=== PATIENT | female | born 1950 | race Caucasian/White ===

== ENCOUNTER → 2017-12-04 15:09 | Outpatient (CLI) | payer OTHER, SELFPAY ==
[2017-12-04 17:39] LABS: Absolute Lymphocyte Count 2.36 X10^3/ul (0.83-4.51); Basophil# 0.03 X10^3/uL; Basophil% 0.4 % (0-1); Eosinophil# 0.16 X10^3/uL; Eosinophils% 2.2 % (0-5); Hematocrit 38.3 % (37-47); Hemoglobin 12.5 g/dl (12.0-15.0); Lymphocyte # 2.36 X10^3/ul (4.0); Mean Corp Hgb Conc 32.6 g/gl (32-36); Mean Corpuscular Hgb 29.6 pg (27.0-32.0); Mean Corpuscular Volume 90.5 fL (81-99); Mean Platelet Vol. 11.2 fl (6.2-12.0); Monocyte# 0.78 X10^3/uL; Monocyte% 10.6 % (0-10); Neutrophil # 4.04 X10^3/uL (2.7-7.7); Neutrophil % 54.7 % (47-70); Platelet Count 216 K/mm3 (150-450); RBC Distribution Width CV 12.6 % (11.6-14.6); RBC Distribution Width SD 41.3 fl (35.1-43.9); Red Blood Count 4.23 M/mm3 (4.2-5.4); White Blood Count 7.4 K/mm3 (4.4-11.0)
[2017-12-04 17:47] LABS: ALB/GLOB Ratio 1.2 RATIO (0.9-2.4); AST(SGOT) 18 U/L (15-37); Alanine Aminotransfer ALT/SGPT 29 U/L (13-56); Albumin, Serum 4.1 g/dL (3.2-5.0); Alkaline Phosphatase 95 U/L (45-117); Anion Gap 7 (5-15); BUN 22 mg/dL (7-18); BUN/Creat Ratio 23.4 RATIO (10-20); Chloride 104 mmol/L (98-107); Creatinine, Serum 0.94 mg/dL (0.55-1.02); EST Glomerular Filtration Rate 63 mL/min (>60); Est Glom Filt Rate - Afr Amer 76 mL/min (>60); Globulin 3.4 g/dL (2.2-4.2); Glucose 88 mg/dL (74-106); Potassium 4.7 mmol/L (3.5-5.1); Protein, Total 7.5 g/dL (6.4-8.2); Sodium Level 139 mmol/L (136-145)
[2017-12-04 17:48] LABS: POSITIVE COUNT NO; POSITIVE DIFFERENTIAL NO; POSITIVE MORPHOLOGY NO
== END ==
PROVIDERS: Family Provider Nurse Practitioner; PCP Nurse Practitioner; Referring Provider Dermatology Pediatric Dermatology; Visit Provider Dermatology Pediatric Dermatology
DX: L40.0 Psoriasis vulgaris (principal); L64.8 Other androgenic alopecia; L40.59 Other psoriatic arthropathy
CPT/HCPCS: 36415; 80053; 85025

== ENCOUNTER 2017-12-10 13:27 | Emergency (ER) | payer OTHER, SELFPAY ==
[2017-12-10 13:28] VITALS: BP 210/101; PULSE 84; RESP 16; TEMP 36.7; O2SAT 100; BMI 32.9
--- NOTE | 2017-12-10 13:39 | RAD_ITS ---
STUDY: X-RAY - RIGHT FOOT CLINICAL: Female, 67 years old. Right foot and ankle pain TECHNIQUE: 3 view(s) of the foot. COMPARISON: None. FINDINGS: No acute fracture or dislocation. Prominent plantar spur. Age-related degenerative changes RAD/Foot min 3 Views IMPRESSION: No acute findings Electronically Signed: Cain Johnson DO at 14:48 EDT Tel , Service support ,
--- NOTE | 2017-12-10 15:18 | ED.DCSUM_ITS ---
- ER Visit Summary Date of Service: 12/10/17 Chief Complaint: Right heel pain History of Present Illness: The patient is a 67 F who sees Leatha kurtz. She reports that she began having pain in her right foot yesterday. She reports is gradually worsened. It is a dull, aching pain is 10 out of 10 at worst an 8 out of 10 currently. Is worsened by walking. She is taken Tylenol and Epson salts without relief. She denies any numbness or weakness. No trauma. No fall, MVA, or change in activity. No new shoes. Physical Examination: Vitals: Stable. Afebrile. General: Well-nourished and well-developed. Head: Normocephalic atraumatic. Neck: Supple, no lymphadenopathy. No JVD. Nontender. Cardiovascular: Regular rate and rhythm. No murmurs. Respiratory: No respiratory distress. Clear to auscultation bilaterally. Abdominal: Soft, nontender, nondistended, normal bowel sounds. No guarding, rebound, or peritoneal signs. Back: Nontender. Extremities: Mild tenderness palpation over the medial side of her right calcaneus. There is no erythema or warmth to suggest infection. She is a 2+ dorsalis pedis pulse. The remainder of her foot is nontender. There is no edema. Skin: Normal color, no rash. Neurologic: Alert and oriented ?3. Cranial nerves II through XII are intact. Normal strength and sensation. Psych: Normal affect. Test Results: Clinical Impression(s) from Imaging Studies Foot X-Ray 12/10/17 13:39 IMPRESSION: No acute findings Electronically Signed: Cain Johnson DO at 14:48 EDT Tel , Service support , Emergency Department Course and Treatment: Patient refused pain medications was able to ambulate without difficulty. Treatment Plan: I discussed with the patient rest, ice, elevation. She refused pain medications for home. She will be instructed to follow-up Dr. Rogers in 1 week if not improving. Return to the emergency department for any worsening symptoms. Disposition: To home in improved and stable condition. Impression: 1. Right foot pain, acute. This note was generated with [employer] Check[employer] software. It may contain incorrect words, spelling, and punctuation that were not noted in review of the chart prior to signing ED Disposition - Plan for ED Patient: Disposition: Home or Assisted Living Chief Complaint: Lower Extremity Injury Instructions: ED Sprain Foot Referrals: Leatha Morrison, LELAND-C [Primary Care Provider] - Gregory Rogers DPM [STAFF PHYSICIAN] - 1 Week if not improving
[2017-12-10 15:21] VITALS: PULSE 60; RESP 16
== END 2017-12-10 15:34 | disposition home or self-care (01) ==
LOC: ED 14:08
PROVIDERS: Emergency Provider Emergency Medicine; Family Provider Nurse Practitioner; PCP Nurse Practitioner
DX: M79.671 Pain in right foot (principal); I10 Essential (primary) hypertension; Z79.82 Long term (current) use of aspirin; Z79.899 Other long term (current) drug therapy
CPT/HCPCS: 73630; 99282

== ENCOUNTER → 2018-07-14 10:59 | Outpatient (CLI) | payer OTHER, SELFPAY ==
[2018-07-14 11:58] LABS: Erythrocyte Sedimentation Rate 5 mm/hr (0-30)
[2018-07-14 12:00] LABS: Absolute Lymphocyte Count 2.47 X10^3/ul (0.83-4.51); Absolute Neutrophil Count 2.5 X10^3/uL (2.0-7.7); Basophil# 0.02 X10^3/uL; Basophil% 0.3 % (0-1); Eosinophils% 1.7 % (0-5); Hematocrit 37.4 % (37-47); Hemoglobin 12.4 g/dl (12.0-15.0); Lymphocyte # 2.47 X10^3/ul (4.0); Lymphocyte % 42.7 % (19-41); Mean Corp Hgb Conc 33.2 g/gl (32-36); Mean Corpuscular Hgb 29.5 pg (27.0-32.0); Mean Corpuscular Volume 88.8 fL (81-99); Mean Platelet Vol. 10.6 fl (6.2-12.0); Monocyte# 0.65 X10^3/uL; Monocyte% 11.2 % (0-10); Neutrophil # 2.53 X10^3/uL (2.7-7.7); Neutrophil % 43.9 % (47-70); Platelet Count 230 K/mm3 (150-450); RBC Distribution Width CV 13.5 % (11.6-14.6); Red Blood Count 4.21 M/mm3 (4.2-5.4); White Blood Count 5.8 K/mm3 (4.4-11.0)
[2018-07-14 12:01] LABS: POSITIVE COUNT NO; POSITIVE DIFFERENTIAL NO; POSITIVE MORPHOLOGY NO
[2018-07-14 12:13] LABS: CRP < 2.90 mg/L (0.0-3.0)
== END ==
PROVIDERS: Family Provider Nurse Practitioner; PCP Nurse Practitioner; Referring Provider Specialist; Visit Provider Specialist
DX: Z96.651 Presence of right artificial knee joint (principal)
CPT/HCPCS: 36415; 85025; 85652; 86140

== ENCOUNTER → 2018-10-26 13:24 | Outpatient (CLI) | payer OTHER, SELFPAY | PROVIDERS: Family Provider Nurse Practitioner; PCP Nurse Practitioner; Referring Provider Nurse Practitioner Gerontology; Visit Provider Nurse Practitioner Gerontology | DX: R19.7 Diarrhea, unspecified (principal) | CPT/HCPCS: 82274; 83630; 87177; 87209; 87493; 87506 ==

== ENCOUNTER 2018-11-04 09:22 | Emergency (ER) | payer OTHER, SELFPAY ==
[2018-11-04 09:24] VITALS: BP 164/90; PULSE 76; RESP 17; TEMP 36.1; O2SAT 98; BMI 33.0
--- NOTE | 2018-11-04 09:49 | ED.VIS.BACK ---
History of Present Illness Chief Complaint: Lower Extremity Injury Informant: Patient Onset: Yesterday Context: Gradual Onset Injury: Lifting, Twisting, Bending, Repetitive Motion Timing: Continuous Quality: Sharp Location: Lumbar, Buttock, Right Leg Current Severity: Severe Maximum Severity: Severe Worsened by: improves with: Movement, Ambulation, Bending, Lifting Relieved by: Nothing Associated Symptoms: Radiation to Right Leg Narrative: 68-year-old female presents with right leg pain. History of previous low back pain as well as a right hip and knee replacement. Has been working since yesterday with worsening pain. It really emanates in her low back and buttock radiating to her right leg. She denies trauma. She denies numbness tingling or weakness. She has not had any loss of bowel or bladder function or difficulty urinating or constipation. No fevers. No history of back surgery. She has been taking Tylenol since yesterday without improvement. Denies any other review of systems. Prior similar symptoms: Yes, With Prior Back Pain Recent Illness/Hospitalization: No Past Medical History - Allergies and Home Meds Allergies/Adverse Reactions: Allergies albuterol Allergy (Verified 11/04/18 09:22) Swelling lidocaine [From Lidoderm] Allergy (Verified 11/04/18 09:22) [facility] Primary Care Physician: Leatha Morrison NP-C [Primary Care Provider] - Prior records reviewed: Yes Past Medical History: - - Hypertension, hyperlipidemia, syncope Surgical History: appendectomy, cholecystectomy Smoking Status: Never smoker Review of Systems All systems negative except as indicated General: Denies: Chills, Fever Musculoskeletal: Reports: Back pain, Extremity Pain Physical Exam Vital Signs/Narrative: Vital Signs Temp Pulse Resp BP Pulse Ox 11/04/18 09:24 96.9 F L 76 17 164/90 H 98 Inital Vital Signs reviewed: Yes General: Well nourished, Well developed Head: Normocephalic, Atraumatic Eyes: Perrl, EOMI ENT: Moist mucous membranes Neck: Supple, Nontender Cardiovascular: Regular rate, Regular rhythm, No murmurs Respiratory: No distress, CTA bilaterally, Chest nontender Abdomen: Soft, Nontender, Nondistended, Normal bowel sounds, No masses Back: Normal Inspection, Paraspinal Tenderness, Positive SLR - Right, Negative SLR - Left. Negative for: Spinal tenderness, CVA tenderness Extremeties: Nontender, No edema Skin: Normal color, No rash Neuro: Alert, Oriented, Normal Strength, Normal Sensation, Normal Gait, Normal Reflexes Psychological: Normal affect Diagnostic/Tx/Re-eval - Medical Decision Making Patient's exam is consistent with sciatica. She does not have any signs or symptoms of cauda equina syndrome. She has not suffered any trauma. At this time do not feel that imaging is indicated. She is given 1 dose of Toradol and will be prescribed a short course of Percocet. She will continue ibuprofen at home. She will follow-up with her primary care physician. She will return here for worsening symptoms which we discussed. ED Disposition - Plan for ED Patient: Disposition: Home or Assisted Living Diagnosis: Sciatica Instructions: Understanding Sciatica Prescriptions: Naproxen [Naprosyn] 500 mg PO BID #14 tab Prescription Printed Oxycodone HCl/Acetaminophen [Percocet 5/325] 1 tab PO Q6H PRN PRN 3 Days #12 tab PRN Reason: Pain Prescription Printed Referrals: Leatha Morrison [employer]PERATOR-C [Primary Care Provider] -
--- NOTE | 2018-11-04 09:50 | ED.VIS.GEN ---
History of Present Illness Chief Complaint: Lower Extremity Injury Past Medical History - Allergies and Home Meds Allergies/Adverse Reactions: Allergies albuterol Allergy (Verified 11/04/18 09:22) Swelling lidocaine [From Lidoderm] Allergy (Verified 11/04/18 09:22) Hives Primary Care Physician: Leatha Morrison NP-C [Primary Care Provider] - Surgical History: appendectomy, cholecystectomy Smoking Status: Never smoker Physical Exam Vital Signs/Narrative: Vital Signs Temp Pulse Resp BP Pulse Ox 11/04/18 09:24 96.9 F L 76 17 164/90 H 98 Diagnostic/Tx/Re-eval - Medical Decision Making Patient complains of right leg pain history of sciatica increasing symptoms while at work today and no numbness weakness paresthesias no loss of function no abdominal pain, patient seen with William agree with history and physical as above exam shows no signs of neurovascular dysfunction no deficits abdomen soft nontender provide treatment management see the note for full details ED Disposition - Plan for ED Patient: Referrals: Leatha Morrison NP-C [Primary Care Provider] -
[2018-11-04] MEDS: oxyCODONE 5 MG Tablet PO (10:04)
[2018-11-04] MEDS: Ketorolac 30 MG/ML Syringe IM (10:04)
[2018-11-04 10:46] VITALS: RESP 16
== END 2018-11-04 10:46 | disposition home or self-care (01) ==
PROVIDERS: Emergency Provider Physician Assistant Medical; Family Provider Nurse Practitioner; PCP Nurse Practitioner
DX: M54.41 Lumbago with sciatica, right side (principal); I10 Essential (primary) hypertension; E78.5 Hyperlipidemia, unspecified; Z79.82 Long term (current) use of aspirin; Z79.899 Other long term (current) drug therapy
CPT/HCPCS: 96372; 99283

== ENCOUNTER → 2019-04-01 15:40 | Outpatient (CLI) | payer OTHER, SELFPAY ==
--- NOTE | 2019-04-01 15:45 | RAD_ITS ---
STUDY: X-RAY - RIGHT HAND REASON FOR EXAM: Female, 69 years old. Right-sided pain TECHNIQUE: 3 view(s) of the hand. COMPARISON: None. FINDINGS: There is no evidence of fracture or dislocation. There are moderate degenerative changes at the base of the thumb and in the interphalangeal joints. There are no radiodense foreign bodies. RAD/Hand Min 3 Views IMPRESSION: No fracture or dislocation in the right hand. Moderate degenerative change. Electronically Signed: Brennon Robles, at 15:54 EST Tel , Service support ,
== END ==
PROVIDERS: PCP Nurse Practitioner; Referring Provider Nurse Practitioner; Visit Provider Nurse Practitioner
DX: M79.641 Pain in right hand (principal)
CPT/HCPCS: 73130

== ENCOUNTER → 2019-09-21 07:00 | Outpatient (CLI) | payer OTHER, SELFPAY ==
[2019-09-21 08:15] LABS: Absolute Lymphocyte Count 2.66 X10^3/uL (0.83-4.51); Absolute Neutrophil Count 2.3 X10^3/uL (2.0-7.7); Basophil# 0.03 X10^3/uL; Basophil% 0.5 % (0-1); Eosinophil# 0.16 X10^3/uL; Eosinophils% 2.8 % (0-5); Hematocrit 40.8 % (37-47); Hemoglobin 13.1 g/dL (12.0-15.0); Lymphocyte # 2.66 X10^3/ul (4.0); Lymphocyte % 46.6 % (19-41); Mean Corp Hgb Conc 32.1 g/dL (32-36); Mean Corpuscular Volume 90.3 fL (81-99); Monocyte# 0.54 X10^3/uL; Monocyte% 9.5 % (0-10); NRBC Flagged by Analyzer 0 % (0-5); Neutrophil % 40.2 % (47-70); Platelet Count 257 K/mm3 (150-450); RBC Distribution Width CV 12.4 % (11.6-14.6); RBC Distribution Width SD 40.8 fl (35.1-43.9); Red Blood Count 4.52 M/mm3 (4.2-5.4); White Blood Count 5.7 K/mm3 (4.4-11.0)
[2019-09-21 09:45] LABS: ALB/GLOB Ratio 1.1 RATIO (0.9-2.4); AST(SGOT) 20 U/L (15-37); Alanine Aminotransfer ALT/SGPT 28 U/L (13-56); Albumin, Serum 3.9 g/dL (3.2-5.0); Alkaline Phosphatase 76 U/L (45-117); Anion Gap 3 (5-15); BUN 13 mg/dL (7-18); BUN/Creat Ratio 14.8 RATIO (10-20); Calcium,Total 8.9 mg/dL (8.5-10.1); Chloride 105 mmol/L (98-107); Cholesterol 255 mg/dL (200); Creatinine, Serum 0.88 mg/dL (0.55-1.02); EST Glomerular Filtration Rate 68 mL/min (>60); Est Glom Filt Rate - Afr Amer 82 mL/min (>60); Globulin 3.4 g/dL (2.2-4.2); Glucose 93 mg/dL (74-106); High Density Lipoprotein 62 mg/dL; Potassium 4.5 mmol/L (3.5-5.1); Protein, Total 7.3 g/dL (6.4-8.2); Sodium Level 136 mmol/L (136-145); Thyroid Stim Hormone (TSH) 1.34 uIU/mL (0.358-3.74); Triglycerides 99 mg/dL; Very Low Density Lipoprotein 20 mg/dL (5-40)
[2019-09-23 08:19] LABS: Vitamin D,25 Hydroxy 41.6 ng/mL
== END ==
PROVIDERS: PCP Nurse Practitioner; Referring Provider Nurse Practitioner; Visit Provider Nurse Practitioner
DX: E03.9 Hypothyroidism, unspecified (principal); E55.9 Vitamin D deficiency, unspecified; I10 Essential (primary) hypertension; F41.9 Anxiety disorder, unspecified
CPT/HCPCS: 36415; 80053; 80061; 82306; 84443; 85025

== ENCOUNTER → 2020-11-17 08:10 | Outpatient (CLI) | payer OTHER, SELFPAY ==
[2020-11-17 10:04] LABS: Vitamin D,25 Hydroxy 22.2 ng/mL
== END ==
PROVIDERS: PCP Nurse Practitioner; Referring Provider Nurse Practitioner; Visit Provider Nurse Practitioner
DX: Z00.01 Encounter for general adult medical examination with abnormal findings (principal); E03.9 Hypothyroidism, unspecified; E55.9 Vitamin D deficiency, unspecified
CPT/HCPCS: 36415; 82306; 84443

== ENCOUNTER 2021-04-12 14:01 | Outpatient (RCR) | payer OTHER, SELFPAY ==
--- NOTE | 2021-04-12 14:52 | HP.PTEVAL ---
Patient's Visit Information BARBARA LIGHT is a 71 year old F referred to Physical Therapy by Dr. Melissa Arnett MD with a diagnosis of Vertigo. Date of Evaluation: 04/12/21 Physical Therapist: Moreno Escobedo, MAMIET, OCS, CSCS - Visit Plan Frequency: 1-2x /Week Duration: 2-4 Weeks Plan: 1-2x/week for 2-4 weeks as needed for... positional treatments and vestibular checks. Next session: check positional and move onto oculomotor as needed. - Subjective 2 weeks ago had insidious onset of waviness in L eye sitting at work looking at computer and got very dizzy. [place] it in both eyes at the time but went away in R eye and L eye continues. Feels dizzy and lightheaded getting up out of bed, on computer, tilting head down and it lasts short term and blurriness is there most of time. Had this 4 yrs ago when we treated her successfully with positional treatments. saw Dr. Arnett last week and got prescription for meclizine which did not help, takes it but does not help. Sleep is not great at night but has been that way for a while. 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 Activitiea re normal just miserable a lot of time. No falls, feels steady typically but less so lately as she may veer left. - Objective Walks with slight R antalgia into PT I, transfers I. Steps preferring to use L with rail I. Cervical aROM 55 ext and 60 B rotation without pain, hesitant to look up. UE AROM WFL, Sensation UE WNL to gross light touch. - R Hallpike lyla. + L hallpike lyla for quick up torsional nystagmus and asymmetrical dizzy/eye movement feeling for 10 seconds. Treated with Johnny and then much improved Hallpike lyla. - Balance/Special Test Scores Functional Gait Assessment Score: 26 % Disability: 13.3400 Dizziness Score: 50 - Goals Goal 1:: Patient feel dizzyness 100% better and back to normal Goal Time Frame: 2-4 Weeks Goal 2:: Pt feel eyes back to normal Goal Time Frame: 2-4 Weeks Goal 3:: DHI score 20 or less Goal Time Frame: 2-4 Weeks - Rehabilitation Potential Physical Therapy Diagnosis: Vertigo likely positional effecting comfort with activities Rehabilitation Potential: Fair - Anticipated Interventions Patient/Client Instruction: Educate patient on: Condition, Plan of Care For the Purpose of:: To increase ROM, To increase tolerance to activity/condition/position Comment: vestibular techniques and exercises. For the Purpose of:: To improve muscle performance and motor function, To increase tolerance to activity/condition/position Thank you for the opportunity to evaluate your patient. For Medicare and Medicare HMO plans, please review the plan of care and approve it. It will need to be FAXED BACK to us at [phone] for Medicare purposes. For Medicare only, by signing this I certify the plan of care. Please let me know if there are questions or concerns regarding this plan of care. Physician Signature: Date:
--- NOTE | 2021-06-14 07:29 | HP.PT.NRP ---
BARBARA LIGHT was seen in my office for initial evaluation on 04/12/21. The following Plan of Care was established for this patient: Initial Frequency: 1-2x /Week Initial Duration: 2-4 Weeks Patient/Client Instruction: Educate patient on: Condition, Plan of Care For the Purpose of:: To increase ROM, To increase tolerance to activity/condition/position For the Purpose of:: To improve muscle performance and motor function, To increase tolerance to activity/condition/position This patient was last seen in our office 04/12/21. Pertinent comments regarding their Physical therapy will appear below: Pt seen one visit and treated with positional treatments for vertigo. was to continue a weekly POC but did not schedule or attend any further visits. At this point, it has been over two months and I will discontinue due to nonattendance. At this point I will be discontinuing this patient from physical therapy. I would be happy to see this patient again in the future if found appropriate by the physician. Thank you! Moreno Escobedo, DPT, OCS, CSCS Balance/Gait/Functional tests - Balance/Special Test Scores Functional Gait Assessment Score: 26 % Disability: 13.3400 Dizziness Score: 50
== END 2021-04-12 19:00 | disposition home or self-care (01) ==
LOC: PT 14:01
PROVIDERS: PCP Nurse Practitioner; Referring Provider Internal Medicine; Visit Provider Internal Medicine
DX: R42 Dizziness and giddiness (principal)
CPT/HCPCS: 97161

== ENCOUNTER 2021-07-22 08:22 | Emergency (ER) | payer OTHER, SELFPAY ==
[2021-07-22 08:23] VITALS: BP 194/99; PULSE 90; RESP 14; TEMP 36.3; O2SAT 100; BMI 32.5
--- NOTE | 2021-07-22 08:30 | RAD_ITS ---
STUDY: X-RAY - LEFT KNEE REASON FOR EXAM: Female, 71 years old. Lateral knee pain. No known injury. TECHNIQUE: 4 view(s) of the knee. COMPARISON: None. FINDINGS: Normal visualized distal femur. Normal visualized proximal tibia and fibula. Normal proximal tibiofibular articulation. There is moderate degenerative arthrosis of the medial femorotibial compartment with moderate joint space narrowing. Normal lateral femorotibial compartment. There is severe degenerative arthrosis of the patellofemoral articulation. Tiny joint effusion. Chondrocalcinosis of the medial and lateral menisci. RAD/Knee 4 or More Views IMPRESSION: Degenerative arthrosis. Chondrocalcinosis of the medial and lateral menisci. Tiny joint effusion. Electronically Signed: Jimi Morales MD at 9:22 EDT ,
--- NOTE | 2021-07-22 08:31 | EX.ED.DYSGE1 ---
HPI History of Present Illness Chief Complaint: Lower Extremity Injury Informant: patient Narrative Narrative: Patient states she hurt her knee yesterday. 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 She has pain in the lateral aspect of her left knee. Its not red or swollen. There is no impact or fall. She does not have pain in the calf or swelling. No fevers chills. It just feels like it is going to give out on her. Nothing specifically makes it better other than rest. Weightbearing does make it a little bit worse as does motion. [facility] Medical History (Updated 07/22/21 @ 09:[address] Tariq Gordon MD) Hypertension Home Medications ferrous sulfate 325 mg PO BIDCM #60 tablet 06/13/13 [Rx Last Taken Unknown] levothyroxine 125 mcg PO DAILY@0600 #30 tablet 06/13/13 [Rx Last Taken 11/09/15 06:00] pravastatin 20 mg PO QHS #30 tablet 06/13/13 [Rx Last Taken Unknown] aspirin 81 mg PO DAILY@0800 07/23/13 [History Last Taken Unknown] levomefolate-algal oil [Deplin] 15 mg PO DAILY 07/23/13 [History Last Taken Unknown] sertraline 100 mg PO DAILY 07/23/13 [History Last Taken Unknown] amlodipine 10 mg tablet 10 mg PO DAILY #30 tab 03/14/17 [Rx Last Taken Unknown] adalimumab 40 mg SQ Q14D 11/04/18 [History Last Taken Unknown] naproxen 500 mg PO BID #14 tab 11/04/18 [Rx Last Taken Unknown] cetirizine 10 mg capsule 10 mg PO DAILY #30 cap 10/10/20 [Rx Last Taken Unknown] famotidine 20 mg tablet 20 mg PO BID #28 tab 10/10/20 [Rx Last Taken Unknown] prednisone 20 mg tablet 40 mg PO DAILY #10 tab 10/10/20 [Rx Last Taken Unknown] naproxen 500 mg PO BID #14 tab 07/22/21 [Rx Last Taken Unknown] Allergy/AdvReac Type Severity Reaction Status Date / Time albuterol Allergy Swelling Verified 07/22/21 08:25 lidocaine [From Lidoderm] Allergy Hives Verified 07/22/21 08:25 Family History Other Heart disease Surgical History History of hip replacement Total knee replacement status Social History Smoking Status: Never smoker ROS ROS ED Constitutional Constitutional ED: Denies chills or fever(s) Cardiovascular Cardiovascular: Denies chest pain or palpitations Respiratory/Chest Respiratory/Chest: Denies cough or dyspnea Gastrointestinal Gastrointestinal: Denies nausea or vomiting Musculoskeletal Musculoskeletal: Reports arthralgias Integumentary Denies abscess, Abrasions or rash Neurologic Neurologic: Denies paresthesias or weakness Endocrine Endocrinology: Denies polydipsia or polyuria Allergic/Immunologic Allergic/Immunologic ED: Denies urticaria EXAM Physical Exam Const Vital Signs: 07/22/21 08:23 Temperature 97.4 F L Temperature Source Temporal Pulse Rate 90 Respiratory Rate 14 Blood Pressure 194/99 H Blood Pressure Mean 130 Pulse Ox 100 Oxygen Delivery Method Room Air Positive well nourished and well developed General Appearance ED: well developed and NAD HEENT Reports moist mucous membranes Resp normal respiratory effort Back/Spine no CVA tenderness Lumbar Spine / Lower Back: Negative for lumbar spinal tenderness Extremity normal to inspection Extremity Narrative: Knees look the same. No asymmetry. There is no effusion. There is no erythema. There is no warmth. There is no pain with passive motion. There is pain with palpation along the lateral joint line. But there does not appear to be laxity of the joint. No contusion or abrasion is noted. The rest of the leg shows no distal swelling, tenderness, tenderness along the deep venous system, cords or distended veins. Neuro no sensory deficits noted Sensorium / Orientation: alert Motor Exam: strength 5/5 throughout Psych mental status grossly normal Skin no rashes or lesions noted and no wounds MDM MDM MDM Narrative Medical decision making narrative: X-rays show degenerative changes and chondrocalcinosis. No sign of acute fracture. Recommend ice rest. We will write for some Naprosyn which she has used before without problems. I will use a short course of this. She will follow-up with her primary physician. Radiography Diagnostic Testing: Clinical Impression(s) from Imaging Studies Knee X-Ray 07/22/21 08:30 IMPRESSION: Degenerative arthrosis. Chondrocalcinosis of the medial and lateral menisci. Tiny joint effusion. Electronically Signed: Jimi Morales MD at 9:22 EDT , Discharge Plan Triage Chief Complaint: Lower Extremity Injury ED Provider: Tariq Gordon Dx/Rx/DC Orders Clinical Impression: Strain of left knee, Chondrocalcinosis of knee Instructions: ED Knee Sprain Prescriptions: New naproxen 500 MG tablet 500 mg PO BID Qty: 14 RF: 0 No Action prednisone 20 mg tablet 40 mg PO DAILY Qty: 10 RF: 0 Zyrtec 10 mg capsule 10 mg PO DAILY Qty: 30 RF: 0 famotidine [Pepcid] 20 mg tablet 20 mg PO BID Qty: 28 RF: 0 ferrous sulfate 325 MG tablet 325 mg PO BIDCM Qty: 60 RF: 0 levothyroxine 125 MCG tablet 125 mcg PO DAILY@0600 Qty: 30 RF: 0 pravastatin 20 MG tablet 20 mg PO QHS Qty: 30 RF: 0 aspirin 81 MG tablet 81 mg PO DAILY@0800 RF: 0 sertraline 100 MG tablet 100 mg PO DAILY RF: 0 levomefolate-algal oil [Deplin (algal oil)] 7.5 MG tablet 15 mg PO DAILY RF: 0 adalimumab 40 MG/0.8 ML syringe kit 40 mg SQ Q14D RF: 0 naproxen 500 MG tablet 500 mg PO BID Qty: 14 RF: 0 amlodipine 10 MG tablet 10 mg PO DAILY Qty: 30 RF: 11 Primary Care Provider: Care Physician,No Primary Referrals: Melissa Arnett MD [STAFF PHYSICIAN] - 3-5 Days Care Physician,No Primary [Primary Care Provider] - Disposition Disposition: Home, Self Care
== END 2021-07-22 10:03 | disposition home or self-care (01) ==
PROVIDERS: Emergency Provider Emergency Medicine; Visit Provider Emergency Medicine
DX: S83.92XA Sprain of unspecified site of left knee, initial encounter (principal); M11.262 Other chondrocalcinosis, left knee; X58.XXXA Exposure to other specified factors, initial encounter
CPT/HCPCS: 73564; 99282

== ENCOUNTER → 2022-07-01 | Outpatient (CLI) | payer OTHER, SELFPAY ==
[2022-07-01 17:48] LABS: Absolute Lymphocyte Count 2.21 X10^3/uL (0.83-4.51); Absolute Neutrophil Count 4.9 X10^3/uL (2.0-7.7); Basophil# 0.01 X10^3/uL; Basophil% 0.1 % (0-1); Eosinophil# 0.01 X10^3/uL; Eosinophils% 0.1 % (0-5); Hematocrit 39.8 % (37-47); Hemoglobin 12.9 g/dL (12.0-15.0); Lymphocyte # 2.21 X10^3/ul (0.83-4.51); Lymphocyte % 28.2 % (19-41); Mean Corp Hgb Conc 32.4 g/dL (32-36); Mean Corpuscular Hgb 29.4 pg (27.0-32.0); Mean Corpuscular Volume 90.7 fL (81-99); Monocyte# 0.66 X10^3/uL; Monocyte% 8.4 % (0-10); NRBC Flagged by Analyzer 0 % (0-5); Neutrophil # 4.92 X10^3/uL (2.7-7.7); Neutrophil % 62.8 % (47-70); Platelet Count 239 K/mm3 (150-450); RBC Distribution Width CV 13.1 % (11.6-14.6); RBC Distribution Width SD 43.4 fl (35.1-43.9); Red Blood Count 4.39 M/mm3 (4.2-5.4); White Blood Count 7.8 K/mm3 (4.4-11.0)
[2022-07-01 18:01] LABS: Erythrocyte Sedimentation Rate 8 mm/hr (0-30)
[2022-07-01 18:19] LABS: ALB/GLOB Ratio 1.2 RATIO (0.9-2.4); AST(SGOT) 17 U/L (15-37); Alanine Aminotransfer ALT/SGPT 34 U/L (13-56); Alkaline Phosphatase 77 U/L (45-117); Anion Gap 6 (5-15); BUN 17 mg/dL (7-18); BUN/Creat Ratio 17.5 RATIO (10-20); CRP, High Sensitivity Cardiac 3.08 mg/L; Calcium,Total 9.4 mg/dL (8.5-10.1); Chloride 103 mmol/L (98-107); Creatinine, Serum 0.97 mg/dL (0.55-1.02); EST Glomerular Filtration Rate 60 mL/min (>60); Est Glom Filt Rate - Afr Amer 72 mL/min (>60); Globulin 3.2 g/dL (2.2-4.2); Glucose 112 mg/dL (74-106); Potassium 4.5 mmol/L (3.5-5.1); Protein, Total 7.2 g/dL (6.4-8.2); Sodium Level 137 mmol/L (136-145)
== END | disposition home or self-care (01) ==
LOC: MTLAB 14:49
PROVIDERS: PCP Nurse Practitioner Family; Referring Provider Nurse Practitioner Family; Visit Provider Nurse Practitioner Family
DX: L50.8 Other urticaria (principal)
CPT/HCPCS: 36415; 80053; 85025; 85652; 86141

== ENCOUNTER → 2022-09-05 | Outpatient (CLI) | payer OTHER, SELFPAY ==
--- NOTE | 2022-09-05 09:25 | RAD_ITS ---
CLINICAL HISTORY: Female, 72 years old. Dysphagia, GERD. PROCEDURE: Dual contrast esophagram. FLUOROSCOPY TIME (if supplied): (1:04) minutes/seconds TECHNIQUE: Gas powders and a barium meal were given per os under fluoroscopic guidance. Rapid sequence and static fluoroscopic spot films as well as overhead radiographs obtained (total images - 62). FINDINGS: The motility, overall distensibility, and mucosal pattern of the esophagus were normal. Mild smooth impressions were seen on the posterior wall of the cervical esophagus by moderately large anterior cervical endplate osteophytes. There is moderate smooth impression on the upper thoracic esophagus by the partially calcified thoracic aortic arch. A few tertiary waves were sometimes noted in the distalmost esophagus. No ulcer or suspicious mass seen. A small sliding hiatal hernia was noted. No gastroesophageal reflux could be demonstrated during the study. The patient was able to swallow a 1 cm diameter barium tablet without difficulty. RAD/Esophagus Dual Contrast IMPRESSION: 1. Small sliding hiatal hernia. Active gastroesophageal reflux was not demonstrated during this study. 2. Moderate smooth impression on the upper thoracic esophagus by the partially calcified thoracic aorta, but this did not produce any distinct obstructive pathology. Electronically Signed: Ladarius Guidry MD at 12:47 EDT Reading Location ID and State: [id number] / Unknown , Service support ,
== END | disposition home or self-care (01) ==
LOC: RAD 09:10
PROVIDERS: PCP Nurse Practitioner Family; Referring Provider Otolaryngology Otolaryngology/Facial Plastic Surgery; Visit Provider Otolaryngology Otolaryngology/Facial Plastic Surgery
DX: R13.10 Dysphagia, unspecified (principal); K21.9 Gastro-esophageal reflux disease without esophagitis
CPT/HCPCS: 74221

== ENCOUNTER 2022-10-25 09:40 | Emergency (ER) | payer OTHER, SELFPAY ==
[2022-10-25 09:41] VITALS: BP 187/95; PULSE 80; RESP 18; TEMP 36.3; O2SAT 98; BMI 32.9
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
[2022-10-25] MEDS: Diphth,Pertuss(Acell),Tet Vac 0.5 ML Vial IM (10:56)
[2022-10-25 11:15] VITALS: RESP 16
== END 2022-10-25 11:15 | disposition home or self-care (01) ==
PROVIDERS: Emergency Provider Emergency Medicine; PCP Nurse Practitioner Family; Visit Provider Emergency Medicine
DX: T25.221A Burn of second degree of right foot, initial encounter (principal); T25.222A Burn of second degree of left foot, initial encounter; T23.272A Burn of second degree of left wrist, initial encounter; E66.9 Obesity, unspecified; Z23 Encounter for immunization; Z79.82 Long term (current) use of aspirin; X58.XXXA Exposure to other specified factors, initial encounter
CPT/HCPCS: 90471; 90715; 99282

== ENCOUNTER → 2022-12-27 | Outpatient (CLI) | payer OTHER, SELFPAY ==
--- NOTE | 2022-12-27 13:54 | BI_ITS ---
MAMMOGRAPHY - BILATERAL SCREENING REASON FOR EXAM: Female, 72 years old. Routine annual screening examination. PERTINENT HISTORY: Non-contributory. Chronic bilateral nipple inversion. TECHNIQUE: Digital bilateral breast kavitha (3D mammographic acquisition) in the CC and MLO projections. 2-D mediolateral oblique (MLO) and craniocaudad (CC) views of both breasts were obtained. CAD: Full Field Digital Mammography with Computer Added Detection was performed. COMPARISON: Comparison is made with prior study of April 01, 2016. FINDINGS: Breast Composition: There are scattered areas of fibroglandular density. There is a 6.9 mm x 10.4 mm well-defined nodule in the slightly upper lateral anterior aspect of the right breast. Correlation with ultrasound is recommended. No other significant abnormalities are identified. BI/SCRN MAMM (CAD)W/KAVITHA BILAT IMPRESSION: 6.9 mm x 10.4 mm well-defined nodule in the slightly upper lateral anterior aspect of the right breast. Correlation with ultrasound is recommended. ASSESSMENT CATEGORY: BIRADS Category 0: Incomplete. Need additional imaging evaluation. A letter regarding these results will be sent to the patient by the facility within 30 days. Approximately 10% of breast cancers are not detected by mammography. A normal mammogram should not delay biopsy of a clinically suspicious abnormality. [id number] Electronically Signed: Jimi Morales MD at 14:42 EST ,
== END | disposition home or self-care (01) ==
LOC: OPBI 13:52
PROVIDERS: PCP Nurse Practitioner Family; Referring Provider Nurse Practitioner Family; Visit Provider Nurse Practitioner Family
DX: Z12.31 Encounter for screening mammogram for malignant neoplasm of breast (principal)
CPT/HCPCS: 77063; 77067

== ENCOUNTER → 2023-01-06 | Outpatient (CLI) | payer OTHER, SELFPAY ==
--- NOTE | 2023-01-06 07:56 | US_ITS ---
STUDY: ULTRASOUND BREAST - RIGHT REASON FOR EXAM: Female, 73 years old. Abnormal screening mammogram. TECHNIQUE: Axial and longitudinal images of the RIGHT breast were performed with a high resolution ultrasound transducer. # OF IMAGES: 28 COMPARISON: Comparison is made with prior mammogram dated December 27, 2022. FINDINGS: RIGHT Breast: The upper outer aspect of the right breast was examined with ultrasound. The mammographic abnormality corresponds to a 9 mm x 10 mm x 6 mm cyst at the 9:00 position in the breast at 3 cm from nipple. There is also evidence of a 6 mm x 6 mm x 3 mm lymph node. US/Breast Limited Unilateral IMPRESSION: The mammographic abnormality corresponds to a 9 mm x 10 mm x 6 mm cyst at the 9:00 position of the breast at 3 cm from the nipple. ASSESSMENT CATEGORY: BIRADS Category 2: Benign. A letter regarding these results will be sent to the patient by the facility within 30 days. Electronically Signed: Jimi Morales MD at 9:31 EST ,
== END | disposition home or self-care (01) ==
LOC: OPUS 07:54
PROVIDERS: PCP Nurse Practitioner Family; Referring Provider Nurse Practitioner Family; Visit Provider Nurse Practitioner Family
DX: N63.10 Unspecified lump in the right breast, unspecified quadrant (principal)
CPT/HCPCS: 76642

== ENCOUNTER → 2023-06-02 | Outpatient (CLI) | payer OTHER, SELFPAY ==
[2023-06-02 09:02] LABS: ALB/GLOB Ratio 1.2 RATIO (0.9-2.4); AST(SGOT) 17 U/L (15-37); Alanine Aminotransfer ALT/SGPT 24 U/L (13-56); Albumin, Serum 3.8 g/dL (3.2-5.0); Alkaline Phosphatase 67 U/L (45-117); Anion Gap 4 (5-15); BUN 17 mg/dL (7-18); BUN/Creat Ratio 17.7 RATIO (10-20); Calcium,Total 9.2 mg/dL (8.5-10.1); Chloride 107 mmol/L (98-107); Cholesterol 227 mg/dL (200); Creatinine, Serum 0.96 mg/dL (0.55-1.02); EST Glomerular Filtration Rate 61 mL/min (>60); Est Glom Filt Rate - Afr Amer 73 mL/min (>60); Globulin 3.3 g/dL (2.2-4.2); Glucose 112 mg/dL (74-106); High Density Lipoprotein 59 mg/dL; Potassium 4.2 mmol/L (3.5-5.1); Protein, Total 7.1 g/dL (6.4-8.2); Sodium Level 138 mmol/L (136-145); Triglycerides 109 mg/dL; Very Low Density Lipoprotein 22 mg/dL (5-40)
== END | disposition home or self-care (01) ==
LOC: LAB 07:02
PROVIDERS: PCP Nurse Practitioner Family; Referring Provider Nurse Practitioner Family; Visit Provider Nurse Practitioner Family
DX: Z01.818 Encounter for other preprocedural examination (principal); E03.9 Hypothyroidism, unspecified; I10 Essential (primary) hypertension; E55.9 Vitamin D deficiency, unspecified
CPT/HCPCS: 36415; 80053; 80061; 82306

== ENCOUNTER → 2023-06-03 | Outpatient (CLI) | payer OTHER, SELFPAY ==
[2023-06-03 07:07] LABS: Mucous, Urine 0 SEEN /hpf (<or=2+)
[2023-06-03 08:33] LABS: Glucose, Dipstick Normal (Normal); Ketone-Dipstick Negative (Negative); Leukocyte Esterase-Dipstick 500 /ul (Negative); Nitrite-Dipstick Negative (Negative); Occult Blood-Urine 10 /ul (Negative); Protein-Dipstick 30 mg/dl (Negative); Specific Gravity, Urine 1.015 (1.002-1.030); Urine Bilirubin Dipstick Negative (Negative); Urine Urobilinogen Normal (Normal)
[2023-06-03 08:53] LABS: Color, Urine Yellow (Yellow); Urine Clarity Clear (Clear)
[2023-06-03 08:54] LABS: Bacteria 1+ /hpf (None Seen); Red Blood Cells-Urine 0-5 SEEN /hpf (0-5); Squamous Epithelial Cells - UA 10-25 SEEN /hpf (5-10); White Blood Cells 25-50 SEEN /hpf (0-5)
== END | disposition home or self-care (01) ==
LOC: LAB 07:02
PROVIDERS: PCP Nurse Practitioner Family; Referring Provider Nurse Practitioner Family; Visit Provider Nurse Practitioner Family
DX: Z01.818 Encounter for other preprocedural examination (principal); E03.9 Hypothyroidism, unspecified; I10 Essential (primary) hypertension; E78.00 Pure hypercholesterolemia, unspecified; E55.9 Vitamin D deficiency, unspecified
CPT/HCPCS: 81001

== ENCOUNTER 2023-06-14 09:53 | Inpatient (IN) | payer OTHER, SELFPAY ==
[2023-06-02 07:43] LABS: Absolute Lymphocyte Count 1.67 X10^3/uL (0.83-4.51); Absolute Neutrophil Count 2.3 X10^3/uL (2.0-7.7); Basophil# 0.03 X10^3/uL; Basophil% 0.7 % (0-1); Eosinophil# 0.03 X10^3/uL; Eosinophils% 0.7 % (0-5); Hematocrit 40.9 % (37-47); Hemoglobin 13.2 g/dL (12.0-15.0); Lymphocyte # 1.67 X10^3/ul (0.83-4.51); Lymphocyte % 36.5 % (19-41); Mean Corp Hgb Conc 32.3 g/dL (32-36); Mean Corpuscular Hgb 29.4 pg (27.0-32.0); Mean Corpuscular Volume 91.1 fL (81-99); Mean Platelet Vol. 10.8 fl (6.2-12.0); Monocyte# 0.53 X10^3/uL; Monocyte% 11.6 % (0-10); NRBC Flagged by Analyzer 0 % (0-5); Neutrophil # 2.31 X10^3/uL (2.7-7.7); Neutrophil % 50.3 % (47-70); Platelet Count 239 K/mm3 (150-450); RBC Distribution Width CV 12.7 % (11.6-14.6); RBC Distribution Width SD 42.1 fl (35.1-43.9); Red Blood Count 4.49 M/mm3 (4.2-5.4); White Blood Count 4.6 K/mm3 (4.4-11.0)
[2023-06-02 09:28] LABS: Albumin, Serum 3.9 g/dL (3.2-5.0); Anion Gap 8 (5-15); BUN 16 mg/dL (7-18); BUN/Creat Ratio 16.9 RATIO (10-20); Calcium,Total 9.7 mg/dL (8.5-10.1); Chloride 106 mmol/L (98-107); Creatinine, Serum 0.94 mg/dL (0.55-1.02); EST Glomerular Filtration Rate 62 mL/min (>60); Est Glom Filt Rate - Afr Amer 75 mL/min (>60); Glucose 113 mg/dL (74-106); Potassium 4.2 mmol/L (3.5-5.1); Sodium Level 139 mmol/L (136-145); Thyroid Stim Hormone (TSH) 0.37 uIU/mL (0.358-3.74)
[2023-06-05 08:35] LABS: Magnesium 2.3 mg/dL (1.6-2.6)
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
[2023-06-14] VITALS (12 sets, daily range): BP systolic 112–169; BP diastolic 51–88; PULSE 63–81; RESP 14–20; TEMP 36.1–36.9; O2SAT 95–100; BMI 30.8
[2023-06-14] MEDS: Vancomycin HCl 1,250 MG in 0.9% Normal Saline (250mL Bag) 250 ML 167 MG IV (10:41)
[2023-06-14] MEDS: Lactated Ringers 1,000 ML 999 ML IV (10:41)
[2023-06-14] MEDS: Magnesium 1 GM over 15 mins IV (10:42)
[2023-06-14] MEDS: Celecoxib 200 MG Capsule 400 MG PO (11:07)
[2023-06-14] MEDS: Acetaminophen 500 MG Tablet 1000 MG PO ×2 (11:07→20:18)
[2023-06-14] MEDS: Gabapentin 600 MG Tablet PO (11:07)
[2023-06-14 11:36] LABS: Bedside Glucose 90 mg/dL (74-106)
[2023-06-14] MEDS: Cefazolin 2 GM in 0.9% Normal Saline (100mL Bag) 100 ML IV (13:05)
[2023-06-14] MEDS: TXA 1000mg in NS100 100ml (IVPB at Incision) 660 MG IV (13:12)
[2023-06-14] MEDS: dexAMETHasone 10 MG/ML Vial IV (13:20)
[2023-06-14] MEDS: TXA 1000mg in NS100 100ml (IVPB at Closure) 660 MG IV (13:57)
[2023-06-14] MEDS: JPS (Morphine 10mg/ml) OPERA.SITE (13:58)
--- NOTE | 2023-06-14 14:05 | OP.PCM_ITS ---
Report of Operation Date of Procedure: 06/14/23 Pre-Operative Diagnosis: Painful right total knee replacement, popliteal tendin opathy Post-Operative Diagnosis: Painful right total knee replacement, popliteal tendinopathy Surgery/Procedure Performed:: Revision right total knee replacement 1 component tibial revision with posterolateral popliteal tendon release Description of Surgical Findings:: Patient had significant scar tissue in the posterior lateral corner which was released. Surgeon: Brennon Ramirez bloom conveyor operator: Levi Marti Type of Anesthesia: Spinal Anesthesiologist: Jose Joshi Special Medications: 2 g Ancef, 1 g TXA at incision, 1 g TXA closure, 10 mg Decadron, joint cocktail (5 mg Duramorph, 30 mL of 0.5% Ropivicaine, 1000 units of epinephrine, 30 mg of Toradol) Estimated Blood Loss (mL): 75 Fluids Replaced: 1500 L crystalloid Description of Procedure: 73 yo F history of R TKA in 2013 presents with posterior lateral tendon pain associated with motion flexion. Reviewed options were discussed the patient. Based on symptoms and presumed diagnosis of popliteal tendinopathy a polyethylene exchange with popliteal tendon release is recommended. Risks and benefits of the procedure were discussed with the patient including but not limited to blood loss, DVTs, PEs, neurovascular damage, infection, general risk of anesthesia including loss of life. Demonstrated understanding and was able to sign informed consent. On the date of procedure patient's R lower extremity was marked in the preoperative area. The patient was then taken back to the operating room where the patient was placed on the table in the supine position. All bony prominences were identified a well-padded. Anesthesia assumed control of the C-spine and airway and remained controlled throughout the remainder of the procedure. A tourniquet was placed on the operative thigh and the leg was prepped in a sterile fashion. The surgeon then scrubbed at this time .Upon reentering the room left lower extremity was draped in a standard orthopedic fashion. A timeout was then called and everyone agreed upon the side, the site, the procedure to be performed, patient's identity and antibiotics given. A midline skin incision was made and sharp dissection was taken down through skin subcutaneous tissue and fat. Appropriate flaps were elevated medially and laterally. His arthrotomy was identified and the standard medial parapatellar incision was made and the patella was subluxed laterally. The standard deep MCL release was done. At this point an appropriate synovectomy commenced. Our attention was first turned towards the subpatellar pouch and all suspicious synovium and tissues were debrided. We then directed our attention towards medial lateral gutters were these tissues were appropriately debrided. Knee was then flexed up the polyethylene was removed. Once polyethylene was removed we did the remainder of the synovium in the medial and lateral gutters and along the lateral structures and MCL. We then directed our attention to the posterior lateral knee. They were tight posterior lateral structures. This area was appropriately released as well as the popliteal tendon. After we had completed our release and were happy with the joint. Polyethylene trials were used to determine appropriate size polyethylene. A 10 mm polyethylene gave us the appropriate fit. Trial polyethylene was removed and 6 L of normal saline were then irrigated throughout the wound with low-pressure lavage and the wound was once again explored. At this point the final polyethylene was opened and a 10 mm polyethylene was then opened and put back into place after appropriate trialing. Tourniquet was let down and hemostasis was obtained as well as possible. Lateral drain was placed in 2 g of vancomycin powder were placed in the wound/joint. Once the final components were placed the wound was copiously irrigated with normal saline solution. The wound was closed in a layer richardson fashion using #1 vicryl interrupted sutures for the arthrotomy, 2-0 interrupted Vicryl for the subcuticular layer and beth for final skin closure. A sterile compressive dressing was then placed. The patient was then awakened from anesthesia, transferred to the [facility] and transferred to the PACU for recovery. Post op plan Aspirin 81 mg p.o. twice daily for DVT prophylaxis. Doxycycline due to patient being staph positive. Patient was instructed to remain on probiotics. She has GI upset she will stop her antibiotics. Weightbearing as tolerated, activity as tolerated. Standard postop knee protocol. My physician cash person (PE) was a vital part of this case. They were important in appropriate retraction during the case, and protection of soft tissues during bony cuts. Their intimate knowledge of the case and my steps aided in safe and expedient completion of the procedure as well as appropriate position of the leg during the case. They were also vital in assisting with closure under my direct supervision. Complications No intraoperative complications Admit VTE Documentation VTE Present on Admission: No VTE Mechan Device Prophylaxis: SCD's and Thigh High DAVID Hose VTE Pharm Prophylaxis ordered?: Yes
[2023-06-14] MEDS: Lactated Ringers 1,000 ML 125 ML IV (14:35)
--- NOTE | 2023-06-14 15:00 | RAD_ITS ---
STUDY: X-RAY - RIGHT KNEE REASON FOR EXAM: Female, 73 years old. Post op -- AP and Lateral xray of operative knee in PACU TECHNIQUE: 2 view(s) of the knee. COMPARISON: None. FINDINGS: Normal visualized distal femur. Normal visualized proximal tibia and fibula. Normal proximal tibiofibular articulation. The patient is status post total knee replacement. There is good alignment. Postoperative soft tissue changes. RAD/Knee 1 or 2 Views IMPRESSION: Status post total knee replacement. There is good alignment. Soft tissue changes. Electronically Signed: Jimi Morales MD at 15:39 EDT ,
[2023-06-14] MEDS: Aspirin 81 MG TAB.CHEW PO (17:32)
[2023-06-14] MEDS: Pravastatin 20 MG Tablet PO (20:17)
[2023-06-14] MEDS: Cefazolin 1 GM/50 ML BAG IV (20:17)
[2023-06-14] MEDS: Senna/Docusate Sodium 1 Tablet 2 TABLET PO (20:18)
[2023-06-15 00:06] VITALS: BMI 30.8
[2023-06-15 03:59] VITALS: BP 144/68; PULSE 60; RESP 16; TEMP 36.6; O2SAT 93
[2023-06-15] MEDS: Cefazolin 1 GM/50 ML BAG IV (04:04)
[2023-06-15 04:06] VITALS: BMI 30.8
[2023-06-15] MEDS: Acetaminophen 500 MG Tablet 1000 MG PO ×2 (05:40→14:58)
[2023-06-15] MEDS: Levothyroxine 125 MCG Tablet PO (05:40)
[2023-06-15 07:22] LABS: Hematocrit 34.7 % (37-47); Hemoglobin 11.6 g/dL (12.0-15.0); Mean Corp Hgb Conc 33.4 g/dL (32-36); Mean Corpuscular Hgb 29.3 pg (27.0-32.0); Mean Corpuscular Volume 87.6 fL (81-99); Mean Platelet Vol. 11.2 fl (6.2-12.0); Platelet Count 218 K/mm3 (150-450); RBC Distribution Width CV 12.2 % (11.6-14.6); RBC Distribution Width SD 39.5 fl (35.1-43.9); Red Blood Count 3.96 M/mm3 (4.2-5.4); White Blood Count 15.4 K/mm3 (4.4-11.0)
[2023-06-15 07:36] LABS: Anion Gap 5 (5-15); BUN 13 mg/dL (7-18); BUN/Creat Ratio 16.4 RATIO (10-20); Calcium,Total 8.7 mg/dL (8.5-10.1); Chloride 103 mmol/L (98-107); Creatinine, Serum 0.79 mg/dL (0.55-1.02); EST Glomerular Filtration Rate 75 mL/min (>60); Est Glom Filt Rate - Afr Amer 91 mL/min (>60); Estimated Creatinine Clearance 64.64 ml/min; Glucose 131 mg/dL (74-106); Potassium 4.3 mmol/L (3.5-5.1); Sodium Level 136 mmol/L (136-145)
[2023-06-15] MEDS: traMADol 50 MG Tablet PO (07:46)
[2023-06-15] MEDS: Aspirin 81 MG TAB.CHEW PO (07:47)
[2023-06-15] MEDS: Senna/Docusate Sodium 1 Tablet 2 TABLET PO (07:47)
[2023-06-15] MEDS: Ferrous Sulfate 325 MG Tablet PO (07:48)
[2023-06-15] MEDS: Famotidine 20 MG Tablet PO (07:48)
[2023-06-15] MEDS: Losartan Potassium 25 MG Tablet PO (07:48)
[2023-06-15] MEDS: amLODIPine 10 MG Tablet PO (07:48)
[2023-06-15] MEDS: Venlafaxine XR 37.5 MG Capsule PO (07:48)
[2023-06-15 07:51] VITALS: BMI 30.8
[2023-06-15 07:55] VITALS: BP 154/75; PULSE 59; RESP 16; TEMP 37.1; O2SAT 98
[2023-06-15 08:11] VITALS: O2SAT 96
--- NOTE | 2023-06-15 08:54 | PN.ORTHO_ITS ---
Subjective Subjective The patient was sitting in bed upon examination. Patient denies any chest pain, shortness of breath, dizziness, lightheadedness, nausea or vomiting, or calf pain. Pain is controlled on medications. No adverse overnight events. Patient overall is doing very well this morning. She has no complaints. Patient is wishing to try to go home today. Objective Data Objective Data Vital Signs: Vital Signs Temp Pulse Resp BP Pulse Ox O2 Del Method O2 Flow Rate 98.7 F 59 L 16 154/75 H 96 Room Air 2 06/15/23 07:55 06/15/23 07:55 06/15/23 07:55 06/15/23 07:55 06/15/23 08:11 06/15/23 08:11 06/14/23 16:06 Oxygen Flow Rate (L/min) 2 Oxygen Delivery Method Room Air Weight: 81.4 kg Body Mass Index (BMI) 30.8 Intake & Output: Intake and Output for Last 24 Hours 06/13/23 06/14/23 06/15/23 23:59 23:59 23:59 Intake Total 3307 / 3707 850 / 850 Balance 3307 / 3707 850 / 850 Lab / Micro Data 06/15/23 06:05 06/15/23 06:05 Labs: Laboratory Results - last 24 hr 06/14/23 10:53: POC Glucose 90 06/15/23 06:05: WBC 15.4 H, RBC 3.96 L, Hgb 11.6 L, Hct 34.7 L, MCV 87.6, MCH 29.3, MCHC 33.4, RDW Std Deviation 39.5, RDW Coeff of Sharmila 12.2, Plt Count 218, MPV 11.2, Sodium 136, Potassium 4.3, Chloride 103, Carbon Dioxide 28.0, Anion Gap 5, BUN 13, Creatinine 0.79, Estim Creat Clear Calc 64.64, Est GFR (MDRD) Af Amer 91, Est GFR (MDRD) Non-Af 75, BUN/Creatinine Ratio 16.4, Glucose 131 H, Calcium 8.7 Micro: Microbiology 06/02/23 07:05 Swab (Method) Nasal Screen MRSA/MSSA - Final Radiography Diagnostic Testing: Radiology Impression Knee X-Ray 06/14/23 15:00 IMPRESSION: Status post total knee replacement. There is good alignment. Soft tissue changes. Electronically Signed: Jimi Morales MD at 15:39 EDT , Physical Exam Narrative Vital signs stable and afebrile. SCDs and DAVID hose are in place bilaterally Patient is able to plantarflex and dorsiflex actively. Sensation is intact to light touch to saphenous, sural, superficial and deep peroneal, and tibial distribution. Dressing is clean dry and intact. Negative Homans bilaterally, negative signs and symptoms of DVT. Const alert, oriented x3 and no apparent distress Assessment & Plan Assessment/Plan (1) Status post revision of total replacement of right knee: PLAN: 1. S/P revision right total knee arthroplasty with popliteal tendon release POD #1 2. Continue Pain Medications: Tylenol, meloxicam, tramadol. Do not take any other nonsteroidal anti-inflammatories while using meloxicam/Mobic. 3. DVT Prophylaxis: Take 81 mg aspirin twice daily for 4 weeks postoperatively for DVT prophylaxis. Patient denies past history of DVT or pulmonary embolism. 4. PT/OT: Weightbearing as tolerated with walker 5. H & H: 11.6/34.7, asymptomatic. Labs have been reviewed and stable. 6. Reactive leukocytosis: 15.4, Afebrile. Patient did receive Decadron intraoperatively. No clinical signs of infection. 7. Currently on doxycycline for 2 weeks postoperatively due to revision total knee arthroplasty and history of staph positive screening. I discussed with the patient potential side effects of doxycycline including sensitivity to the sunlight and increased risk of skin burn. Recommend patient take appropriate precautions. Also recommend patient to take probiotic while on the antibiotic. Patient voiced understanding agreement. Patient does have history of C. difficile in the past. She was instructed to reach out and contact our office if having any complications. We did discuss this in detail today. 8. Continue postoperative medical management per medicine 9. Encouraged Incentive Spirometry 10. Disposition: Plan will be for discharge home today as long as patient remains medically stable, tolerates therapy, and pain is adequately controlled. She does not have physical therapy established. She will like to be seen at [facility]. I will have case management discussed with patient and schedule appropriate appointment. She has been instructed to continue those exercises through the weekend and plan for outpatient therapy early next week. We discussed postoperative dressing and removal. She would like all her medications E scribed to [facility] pharmacy. She will follow-up per postoperative instructions. She was instructed to contact her office with any complications postoperatively. She voiced understanding and asked all questions. I have reviewed the [place] Automated Rx Reporting System (OARRS) report for this patient for refill pattern and other prescriber involvement as part of the appropriate surveillance for the provision of acute and chronic controlled medications. The report was requested and reviewed on the date of this entry and was considered in the prescribing process. This dictation was created using voice recognition software. Phonetic and/or grammatical errors may exist.
--- NOTE | 2023-06-15 08:58 | DCINST_ITS ---
Discharge Instructions Diet Discharge Diet: No restrictions Activity Discharge Activity: May Not Drive (No driving for 6 weeks postoperatively. Must also be off all narcotics and able to walk 100 feet without the use of cane or walker.) May shower in (days): 1 (Please turn dressing away from water. Okay to get wet as long as dressing is intact to skin.) Ice area for (Minutes): 20 (Every 1-2 hours while awake. Please place barrier between the skin and ice pack.) Weight Bearing Status: Weight bearing as tolerated Keep extremity elevated above heart level: Operative Extremity Dressing / Incision Call your doctor if your incision/area has: Continuous Slow Oozing, Sudden Increased Bleeding, Increased Pain/ Swelling, Increased Redness and Foul Smelling Discharge Call your doctor if you observe: Fever of 101 or Higher, Coldness, Increased Pain, Numbness or Tingling, Change in Color, Shortness of breath, Chest pain, Calf discomfort and Uncontrolled pain Remove Dressing in: 4 days (Okay to remove dressing on June 19, 2023) Additional Dressing/Incision Instructions:: Follow [facility] Post-op Instructions. Once postoperative dressing has been removed only use gentle soap and water over the incision. Do not use any ointments, Neosporin, salves, alcohol pads over the incision for 6 weeks postoperatively. Do not submerge underwater for 6 weeks postoperatively. Continue with DAVID hose/elastic stockings for 2 weeks postoperatively. May remove at nighttime but needs to be placed back on the leg during the day. Do NOT use alcohol with narcotic pain medication. Do NOT make important decisions while taking narcotic medication. If you have problems with taking your medication (rash, itching, nausea, etc.) call the office at once. Follow Up Care Test Results: Test results from this visit will be discussed in further detail at your follow- up appointment, if applicable. Discharge Plan Admission Admit Date/Time: 06/14/23 09:53 Attending Provider: Brennon Ramirez Primary Care Provider: Mayra Escobedo Discharge Orders/Prescriptions Prescriptions: New acetaminophen 500 mg Tablet 1,000 mg PO TID Qty: 0 0RF Rx Instructions: Do not take more than 3000 mg Tylenol in a 24-hour period. aspirin 81 mg Tablet,Chewable 81 mg PO BIDCM 30 Days Qty: 60 0RF Rx Instructions: Take 81 mg aspirin twice daily for 4 weeks postoperatively for DVT prophylaxis. famotidine 20 mg Tablet 20 mg PO DAILY 30 Days Qty: 30 0RF doxycycline monohydrate 100 mg Capsule 100 mg PO BID 13 Days Qty: 26 0RF Rx Instructions: Take for 2 weeks postoperatively Patrick (with collagen) 7-7-1.5 gram Powder In Packet 1 packet PO DAILY Qty: 0 0RF meloxicam 7.5 mg Tablet 7.5 mg PO BID 30 Days Qty: 60 0RF Rx Instructions: Do not take any other nonsteroidal anti-inflammatories while using meloxicam/Mobic. sennosides-docusate sodium [Stool Softener-Stimulant Laxat] 8.6-50 mg Tablet 2 tab PO BID 3 Days Qty: 12 0RF Rx Instructions: Take until first bowel movement, then as needed tramadol 50 mg Tablet 50 - 100 mg PO Q6H PRN PRN (Reason: Pain Score 4-10) 7 Days Qty: 42 0RF Continued pravastatin 20 MG tablet 20 mg PO QHS Qty: 30 0RF Patient Comments: LOWERS CHOLESTEROL Deplin (algal oil) 7.5 MG tablet 15 mg PO DAILY venlafaxine 37.5 mg capsule,extended release 24hr 37.5 mg PO DAILY Patient Comments: TAKE 1 CAPSULE BY MOUTHCONCE DAILY losartan 25 mg tablet 25 mg PO DAILY Patient Comments: TAKE 1 TABLET BY MOUTHCONCE DAILY ergocalciferol (vitamin D2) [Vitamin D2] 1,250 mcg (50,000 unit) capsule 50,000 unit PO .2X WEEK Patient Comments: TAKE 1 CAPSULE BY MOUTH TWICE WEEKLY levothyroxine 125 mcg capsule 187.5 mcg PO DAILY Patient Comments: MONDAY 1 1/2 TABLETS, MOTUWETHFRSA 1 TAB ferrous sulfate 325 MG tablet 325 mg PO .QOD Patient Comments: IRON SUPPLEMENT levothyroxine 125 MCG tablet 125 mcg PO MOTUWETHFRSA Patient Comments: FOR HYPOTHYROIDISM amlodipine 10 MG tablet 10 mg PO DAILY Qty: 30 11RF Patient Comments: LOWERS BLOOD PRESSURE Referrals / Follow Up: Mayra Escobedo NP-C [Primary Care Provider] - Levi Marti PA-C [Med Staff - [facility], 1928–1983 Practice Prof] - 06/28/23 3:00 pm Disposition Disposition (needs filled in before D/C Order can be placed): Home, Self Care
[2023-06-15 10:00] VITALS: BP 103/46; PULSE 57; RESP 18; TEMP 36.8; O2SAT 98
--- NOTE | 2023-06-15 11:00 | CASEMGMT ---
MICHELLE NOEL NOTE: Pt would like to go to [facility] for OP therapy. Script received from PRE[facility]s, for OP PT and faxed to [facility] at this time. Call placed to Kelly @ [facility]. Appt scheduled for , 06/20/23 @ 3 PM. This was added to pt's discharge plan and pt made aware. She states her will be able to take her to this appt. Lopez RAMOS RN CM
[2023-06-15 11:57] VITALS: BP 129/62; PULSE 64; RESP 18; TEMP 36.9; O2SAT 98
[2023-06-15 12:06] VITALS: BMI 30.8
--- NOTE | 2023-06-15 12:40 | CASEMGMT ---
MICHELLE NOEL Assessment Face to Face with patient for initial transition planning/care coordination assessment. MICHELLE NOEL introduced self and role at [facility], pt voices understanding. Pt is A&Ox4 and is resting comfortably in bed and is calm. Pt at bedside. Care providers, pharmacy, and demographics verified. Admitting dx: TSA PCP: Mayra Escobedo Specialists: Denies Preferred Pharmacy: [facility] Insurance: [employer] Prescription Benefit: Yes LNOK: Benny Abrams (H) Living Arrangements: Pt lives with her in a single story mobile home with 6 steps to enter with handrail x2. ADLs/IADLs: Ind Transportation: Self, DME: [facility] and crutches but does not normally need to use. Access to a shower chair. Raised toilet seat. BP Cuff. Pt denies further DME needs. HHC/SNF: Denies history or needs Pt?s goal: Home with OP Therapy Plan: Rx for OP therapy was given to the pt by MICHELLE Bui CM. Pt states that she has an appt set up for next Monday. Pt states that she feels safe DC home today with this plan. Pt denies further questions or concerns at this time. Moon Gibbs RN, CM
[2023-06-15 15:07] VITALS: BP 140/76; PULSE 73; RESP 18; TEMP 36.9; O2SAT 98
[2023-06-15] MEDS: Doxycycline 100 MG CAPSULE PO (15:07)
== END 2023-06-15 16:22 | disposition home or self-care (01) | DRG 468 ==
LOC: ACINP 14:17 → MS3 15:39
PROVIDERS: Anesthesiology; Admitting Provider Specialist; PCP Nurse Practitioner Family; Referring Provider Specialist; Visit Provider Specialist
PROC: 0SPV0JZ Removal of Synthetic Substitute from Right Knee Joint, Tibial Surface, Open Approach (ICD-10-PCS; CPT 27487; principal; 2023-06-14 12:10)
DX: T84.84XA Pain due to internal orthopedic prosthetic devices, implants and grafts, initial encounter (principal); E07.9 Disorder of thyroid, unspecified; I10 Essential (primary) hypertension; E78.00 Pure hypercholesterolemia, unspecified; M67.863 Other specified disorders of tendon, right knee; X58.XXXA Exposure to other specified factors, initial encounter; Z96.651 Presence of right artificial knee joint; Z79.899 Other long term (current) drug therapy; Z86.19 Personal history of other infectious and parasitic diseases
CPT/HCPCS: 36415; 73560; 80048; 82040; 82962; 83735; 84443; 85025; 85027; 87077; 87081; 94668; 94762; 97162; C1776; J7050; J7120; J2405; J3475

== ENCOUNTER 2023-06-18 10:01 | Emergency (ER) | payer OTHER, SELFPAY ==
[2023-06-18 10:02] VITALS: BP 131/67; PULSE 99; RESP 18; TEMP 36.3; O2SAT 100; BMI 30.5
--- NOTE | 2023-06-18 10:19 | EDS_ITS ---
HPI History of Present Illness Chief Complaint: Wound Check Narrative Narrative: 73-year-old female presenting with bleeding from right knee wound. Patient had total knee arthroscopy revision and she is postop day #5. She denies any injury. She states that last night there was a small drop of blood underneath the surgical dressing. Today it is underneath most of the dressing and it is leaking slightly off the right side. She denies any pain, trauma. Stable to ambulate. No systemic signs or symptoms. No blood thinners except for aspirin. PFSH PFSH Medical History Anxiety Arthritis Back pain Cardiology follow-up encounter Depression Gastric reflux High cholesterol History of Clostridium difficile infection History of hiatal hernia History of pain when walking History of steroid therapy Hypertension Injury of head and neck Non-smoker Post-menopausal Rheumatoid arthritis Shortness of breath on exertion Thyroid disease Wears glasses Home Medications pravastatin 20 mg tablet 20 mg PO QHS CHOLESTEROL #30 TABLETS 06/13/13 [Rx Last Taken 06/13/23] levomefolate 7.5 mg-algal oil 90.314 mg capsule (Deplin (algal oil)) 15 mg PO DAILY NERVES 07/23/13 [History Last Taken 06/07/23] amlodipine 10 mg tablet 10 mg PO DAILY BP #30 tabs 03/14/17 [Rx Last Taken 06/14/23] ergocalciferol (vitamin D2) 1,250 mcg (50,000 unit) capsule (Vitamin D2) 50,000 unit PO .2X WEEK SUPPLEMENT 05/31/23 [History Last Taken 06/13/23] ferrous sulfate 325 mg (65 mg iron) tablet 325 mg PO .QOD SUPPLEMENT 05/31/23 [History Last Taken 06/09/23] levothyroxine 125 mcg capsule 187.5 mcg PO DAILY THYROID 05/31/23 [History Last Taken 06/11/23] levothyroxine 125 mcg tablet 125 mcg PO MOTUWETHFRSA THYROID 05/31/23 [History Last Taken 06/14/23] losartan 25 mg tablet 25 mg PO DAILY BP 05/31/23 [History Last Taken 06/14/23] venlafaxine 37.5 mg capsule,extended release 24 hr 37.5 mg PO DAILY ANXIETY 05/31/23 [History Last Taken 06/09/23] acetaminophen 500 mg tablet 1,000 mg (2 x 500 mg) PO TID #0 tabs 06/15/23 [Rx Last Taken Unknown] arginine 7 gram-glutam 7 gram-CaHMB 1.5 mgjm-ulucs-uw-min oral pwd pkt (Patrick (with collagen)) 1 packet PO DAILY #0 ea 06/15/23 [Rx Last Taken Unknown] aspirin 81 mg chewable tablet 81 mg PO BIDCM 30 days #60 tabs 06/15/23 [Rx Last Taken Unknown] doxycycline monohydrate 100 mg capsule 100 mg PO BID 13 days #26 caps 06/15/23 [Rx Last Taken Unknown] famotidine 20 mg tablet 20 mg PO DAILY 30 days #30 tabs 06/15/23 [Rx Last Taken Unknown] meloxicam 7.5 mg tablet 7.5 mg PO BID 30 days #60 tabs 06/15/23 [Rx Last Taken Unknown] sennosides 8.6 mg-docusate sodium 50 mg tablet (Stool Softener-Stimulant Laxative) 2 tab PO BID 3 days #12 tabs 06/15/23 [Rx Last Taken Unknown] tramadol 50 mg tablet 50 - 100 mg (1 - 2 x 50 mg) PO Q6H PRN PRN Pain Score 4-10 7 days #42 tabs 06/15/23 [Rx Last Taken Unknown] Allergy/AdvReac Type Severity Reaction Status Date / Time albuterol Allergy Swelling Verified 06/14/23 10:56 lidocaine [From Lidoderm] Allergy Hives Verified 06/14/23 10:56 Family History Other Heart disease Surgical History History of carpal tunnel surgery of right wrist History of hip replacement History of laparoscopic cholecystectomy Hx of appendectomy Hx of arthroscopic knee surgery Hx of surgical procedure Hx of tubal ligation Total knee replacement status Social History household members: spouse Smoking Status: Never smoker ROS ROS ED Constitutional Constitutional ED: Denies chills, fever(s) or sweats Eyes Eyes: Denies blurry vision or change in vision ENT ENT ED: Denies ear pain or sore throat Cardiovascular Cardiovascular: Denies chest pain, palpitations or racing heartbeat Respiratory/Chest Respiratory/Chest: Denies cough, dyspnea or sputum Gastrointestinal Gastrointestinal: Denies abdominal pain, constipation, diarrhea, nausea or vomiting Genitourinary Genitourinary ED: Denies dysuria, hematuria or urinary frequency Musculoskeletal Musculoskeletal: Denies arthralgias, myalgias or neck pain Integumentary Reports other Details: Surgical site right knee dried blood in the dressing. No active bleeding ; Denies abscess, Abrasions or rash Neurologic Neurologic: Denies headache(s), paresthesias or weakness Psychiatric Psychiatric: Denies anxiety, depression, suicidal ideation or suicidal thoughts Endocrine Endocrinology: Denies polydipsia or polyuria EXAM Physical Exam Const Vital Signs: 06/18/23 10:02 Temperature 97.3 F L Temperature Source Temporal Pulse Rate 99 Respiratory Rate 18 Blood Pressure 131/67 H Blood Pressure Mean 88 Pulse Ox 100 Oxygen Delivery Method Room Air Positive well nourished General Appearance ED: NAD HEENT normocephalic and atraumatic Resp normal respiratory effort Cardio regular rate and regular rhythm Extremity Extremity Narrative: Surgical wound right knee midline vertical lie. There is blood beneath the dressing. There is a small leakage in the lateral aspect of the dressing. Minimal tenderness to palpation. Patient has range of motion and is able to actively flex and extend her knee. Compartments are soft. No cords palpated. Neuro oriented x3 and CN's II-XII intact bilaterally Psych mental status grossly normal Skin Skin Narrative: As described above. MDM MDM MDM Narrative Medical decision making narrative: Discussed case with Dr. Ramirez. He recommended placing a dry dressing which he states to use an ABD. Wrap this up. She is instructed not to take any showers until her bleeding stops. Follow-up with him in the office. She will be given dressing supplies here in the ER. Impression: 1. Postop wound check Discharge Plan Triage Chief Complaint: Wound Check ED Provider: Guillermo Olmstead Dx/Rx/DC Orders Prescriptions: No Action pravastatin 20 MG tablet 20 mg PO QHS Qty: 30 0RF Patient Comments: LOWERS CHOLESTEROL Deplin (algal oil) 7.5 MG tablet 15 mg PO DAILY venlafaxine 37.5 mg capsule,extended release 24hr 37.5 mg PO DAILY Patient Comments: TAKE 1 CAPSULE BY MOUTHCONCE DAILY losartan 25 mg tablet 25 mg PO DAILY Patient Comments: TAKE 1 TABLET BY MOUTHCONCE DAILY ergocalciferol (vitamin D2) [Vitamin D2] 1,250 mcg (50,000 unit) capsule 50,000 unit PO .2X WEEK Patient Comments: TAKE 1 CAPSULE BY MOUTH TWICE WEEKLY levothyroxine 125 mcg capsule 187.5 mcg PO DAILY Patient Comments: MONDAY 1 1/2 TABLETS, MOTUWETHFRSA 1 TAB ferrous sulfate 325 MG tablet 325 mg PO .QOD Patient Comments: IRON SUPPLEMENT levothyroxine 125 MCG tablet 125 mcg PO MOTUWETHFRSA Patient Comments: FOR HYPOTHYROIDISM acetaminophen 500 mg Tablet 1,000 mg PO TID Qty: 0 0RF Rx Instructions: Do not take more than 3000 mg Tylenol in a 24-hour period. aspirin 81 mg Tablet,Chewable 81 mg PO BIDCM 30 Days Qty: 60 0RF Rx Instructions: Take 81 mg aspirin twice daily for 4 weeks postoperatively for DVT p rophylaxis. famotidine 20 mg Tablet 20 mg PO DAILY 30 Days Qty: 30 0RF doxycycline monohydrate 100 mg Capsule 100 mg PO BID 13 Days Qty: 26 0RF Rx Instructions: Take for 2 weeks postoperatively Patrick (with collagen) 7-7-1.5 gram Powder In Packet 1 packet PO DAILY Qty: 0 0RF meloxicam 7.5 mg Tablet 7.5 mg PO BID 30 Days Qty: 60 0RF Rx Instructions: Do not take any other nonsteroidal anti-inflammatories while using meloxicam/Mobic. sennosides-docusate sodium [Stool Softener-Stimulant Laxat] 8.6-50 mg Tablet 2 tab PO BID 3 Days Qty: 12 0RF Rx Instructions: Take until first bowel movement, then as needed tramadol 50 mg Tablet 50 - 100 mg PO Q6H PRN PRN (Reason: Pain Score 4-10) 7 Days Qty: 42 0RF amlodipine 10 MG tablet 10 mg PO DAILY Qty: 30 11RF Patient Comments: LOWERS BLOOD PRESSURE Primary Care Provider: Mayra Escobedo Referrals: Mayra Escobedo NP-C [Primary Care Provider] -
[2023-06-18 11:00] VITALS: BP 133/63; PULSE 72; RESP 15; TEMP 36.2; O2SAT 99
== END 2023-06-18 11:01 | disposition home or self-care (01) ==
LOC: ED 10:35
PROVIDERS: Emergency Provider Student in an Organized Health Care Education/Training Program; PCP Nurse Practitioner Family; Visit Provider Student in an Organized Health Care Education/Training Program
DX: Z47.1 Aftercare following joint replacement surgery (principal); Z96.651 Presence of right artificial knee joint
CPT/HCPCS: 99282

== ENCOUNTER 2023-08-23 11:30 | Outpatient (RCR) | payer OTHER, SELFPAY | END 2023-08-23 19:00 | disposition home or self-care (01) | LOC: PT 11:30 | PROVIDERS: PCP Nurse Practitioner Family; Referring Provider Physician Assistant Surgical; Visit Provider Physician Assistant Surgical | DX: M67.864 Other specified disorders of tendon, left knee (principal); Z96.651 Presence of right artificial knee joint | CPT/HCPCS: 97014; 97016; 97110; 97140; 97161; G0283 ==

== ENCOUNTER → 2023-11-20 | Outpatient (CLI) | payer OTHER, SELFPAY ==
[2023-11-20 07:10] LABS: CRP < 2.90 mg/L (0.0-3.0)
[2023-11-20 07:54] LABS: Erythrocyte Sedimentation Rate 5 mm/hr (0-30)
== END | disposition home or self-care (01) ==
LOC: LAB 05:58
PROVIDERS: PCP Nurse Practitioner Family; Referring Provider Physician Assistant Surgical; Visit Provider Physician Assistant Surgical
DX: T84.84XD Pain due to internal orthopedic prosthetic devices, implants and grafts, subsequent encounter (principal); Z96.651 Presence of right artificial knee joint
CPT/HCPCS: 36415; 85652; 86140

== ENCOUNTER → 2023-12-25 | Outpatient (CLI) | payer OTHER, SELFPAY ==
--- NOTE | 2023-12-25 14:58 | MRI_ITS ---
EXAM: MR RIGHT LOWER EXTREMITY WITHOUT INTRAVENOUS CONTRAST, KNEE CLINICAL INDICATION: PAIN RT KNEE, DISORDERS OF TENDON, PAIN D/T ORTHO PROSTHESIS TECHNIQUE: Multiplanar and multisequence MR images of the right knee without intravenous contrast. COMPARISON: June 14, 2023 FINDINGS: BONES/JOINTS: Total knee arthroplasty with extensive susceptibility artifact limiting assessment of the adjacent tissues. Patellofemoral arthroplasty postsurgical changes are also seen. No Pichardo''s cyst. No fracture. No abnormal bone marrow signal. No synovial hypertrophy. No intra-articular body. EXTENSOR MECHANISM: Unremarkable. MEDIAL MENISCUS: Unremarkable. LATERAL MENISCUS: Unremarkable. MEDIAL CAPSULE/SUPPORTING STRUCTURES: Unremarkable. Intact. LATERAL CAPSULE/SUPPORTING STRUCTURES: Unremarkable. Lateral collateral ligamentous complex, inclusive of the popliteal tendon, are intact. ANTERIOR CRUCIATE LIGAMENT: Unremarkable. Intact. POSTERIOR CRUCIATE LIGAMENT: Unremarkable. Intact. MUSCLES: Unremarkable. CARTILAGE: Unremarkable. Intact. FLUID: Moderate suprapatellar joint effusion. No soft tissue masses or fluid collections. MRI/Lower Ext Joint Only (Routine) IMPRESSION: Tricompartmental arthroplasty postsurgical changes are noted with susceptibility artifact limiting assessment of the adjacent tissues. Moderate size suprapatellar joint effusion without significant synovitis or intra-articular intra-articular ossific bodies on limited assessment. Electronically Signed: Rodolfo Carpenter MD at 3:03 EST ,
== END | disposition home or self-care (01) ==
LOC: MRI 14:40
PROVIDERS: PCP Nurse Practitioner Family; Referring Provider Specialist; Visit Provider Specialist
DX: M67.863 Other specified disorders of tendon, right knee (principal); M25.561 Pain in right knee; T84.84XD Pain due to internal orthopedic prosthetic devices, implants and grafts, subsequent encounter
CPT/HCPCS: 73721

== ENCOUNTER → 2024-01-17 | Outpatient (CLI) | payer OTHER, SELFPAY ==
--- NOTE | 2024-01-17 10:37 | RAD_ITS ---
INDICATION: XR SHOULDER LEFT COMPLETE (63791) : Pain x3 months; ? rotator cuf -- Left shoulder pain EXAMINATION/TECHNIQUE: X-RAY - LEFT XR Shoulder Min 2 Views COMPARISON: None. FINDINGS: SOFT TISSUES: Unremarkable. BONES/JOINTS: No fracture or dislocation. Mild degenerative changes of the glenohumeral joint. No erosive changes. RAD/Shoulder min 2 Views IMPRESSION: Mild degenerative changes with no acute abnormality. Electronically Signed: Gregory Vela DO at 0:36 EST ,
== END | disposition home or self-care (01) ==
LOC: RAD 10:36
PROVIDERS: PCP Nurse Practitioner Family; Referring Provider Nurse Practitioner Family; Visit Provider Nurse Practitioner Family
DX: M25.512 Pain in left shoulder (principal)
CPT/HCPCS: 73030

== ENCOUNTER → 2024-02-08 | Outpatient (CLI) | payer OTHER, SELFPAY ==
--- NOTE | 2024-02-08 14:52 | BD_ITS ---
STUDY: DUAL ENERGY X-RAY ABSORPTIOMETRY / DXA REASON FOR EXAM: Female, 74 years old. [id number] -- Postmenopausal status TECHNIQUE: Bone Mineral Density (BMD) measurements of lumbar spine and left hip were obtained. COMPARISON: None. FINDINGS: Lumbar Spine (L1-L4): g/cm2 (1.004) / T-score (-0.4) / Z-score (2.0) Findings are suggestive of normal bone density with a low fracture risk. Left Femur Total: g/cm2 (0.774) / T-score (-1.4) / Z-score (0.4) Left Femoral Neck: g/cm2 (0.542) / T-score (-2.8) / Z-score (by 0.7) BD/Dexa Bone Density Study IMPRESSION: The patient is considered osteoporotic as outlined below according to World Brian Organization (WHO) criteria with a high fracture risk. Reference Information: The T-score is the number of standard deviations above or below the standard which is normal for young adults at their peak bone mineral density. The World Health Organization (WHO) interprets the T-scores as follows: Above -1 Normal bone density Between -1 and -2.5 Osteopenia Equal to / or below -2.5 Osteoporosis As a practical clinical guideline, osteopenia may be graded as follows: Mild -1 through -1.5 Moderate -1.6 through -2.0 Severe -2.1 through -2.4 The Z-score is the number of standard deviations above or below age-matched controls. A Z-score of less than -1.5 would be considered abnormal. References: 1. NIH Osteoporosis and Related Bone Diseases www osteo.org 2. International Society for Clinical Densitometry www iscd.org 3. National Osteoporosis Foundation www nof.org Electronically Signed: Jimi Morales MD at 11:56 EST ,
== END | disposition home or self-care (01) ==
LOC: OPBD 14:47
PROVIDERS: PCP Nurse Practitioner Family; Referring Provider Nurse Practitioner Family; Visit Provider Nurse Practitioner Family
DX: Z78.0 Asymptomatic menopausal state (principal)
CPT/HCPCS: 77080

== ENCOUNTER → 2024-02-10 | Outpatient (CLI) | payer OTHER, SELFPAY ==
[2024-02-10 07:04] LABS: Mucous, Urine 0 SEEN /hpf (<or=2+); Red Blood Cells-Urine 0 SEEN /hpf (0-5)
[2024-02-10 10:51] LABS: Color, Urine Yellow (Yellow); Glucose, Dipstick Normal (Normal); Ketone-Dipstick 5 mg/dl (Negative); Leukocyte Esterase-Dipstick 100 /ul (Negative); Nitrite-Dipstick Negative (Negative); Occult Blood-Urine Negative /ul (Negative); Protein-Dipstick 15 mg/dl (Negative); Urine Bilirubin Dipstick Negative (Negative); Urine Clarity Sl. Cloudy (Clear); Urine Urobilinogen 1 mg/dl (Normal)
[2024-02-10 10:59] LABS: Bacteria 1+ /hpf (None Seen); Calcium Oxalate Crystals Ur 2+ /hpf (<or=2+); Squamous Epithelial Cells - UA 10-25 SEEN /hpf (5-10); Transitional Epithelial - Ur 0-5 SEEN /hpf (0-5); White Blood Cells 0-5 SEEN /hpf (0-5)
[2024-02-12 08:21] LABS: Vitamin D,25 Hydroxy 33.2 ng/mL
== END | disposition home or self-care (01) ==
LOC: LAB 06:58
PROVIDERS: PCP Nurse Practitioner Family; Referring Provider Nurse Practitioner Family; Visit Provider Nurse Practitioner Family
DX: E03.9 Hypothyroidism, unspecified (principal); E55.9 Vitamin D deficiency, unspecified; R35.0 Frequency of micturition
CPT/HCPCS: 36415; 81001; 82306; 84443; 87086; 87088

== ENCOUNTER 2024-02-15 15:00 | Outpatient (RCR) | payer OTHER, SELFPAY ==
--- NOTE | 2024-01-26 14:29 | HP.PTEVAL ---
Patient's Visit Information Visit Information Visit Information: BARBARA LIGHT is a 74 year old F referred to Physical Therapy by REBECCA Wallace with a diagnosis of LEFT SHOULDER PAIN. Date of Evaluation: 01/26/24 Physical Therapist: Rory Forrest, PT, Cert MDT, OCS Visit Plan Frequency: 2x /Week Duration: 4 Weeks Plan: PT INTERVENTIONS ROM EX'S ,MANUAL THERAPY G-H joints mobs 2-3 ,RTC/SCAPULAR STRENGTHENING AND POSTURAL EX'S Subjective Subjective: This 74 y/o female presents to physical therapy with left shoulder pain. Patient seen DR and recommended PT and had x-rays showed OA. No medication. Patient has left shoulder pain for ~ 3 months . Pain located global to lateral deltoid described as sharp pain, Aggravating factors OH an self hyenine and ADL ,combing hair ,reaching in cupboard and reaching behind back . Alleviating factors rest ice and voltaren and teylonal . Symptoms effects sleeping . Patient condition affects QOL and function. Patient goals to decrease pain. SOCIAL: VOCATION: [employer] Pain Left: Pain Intensity (Out of 10): 5 Pain Intensity Range: 10 Objective Objective: POSTURE: rounded shoulders forward head PALPATION: tender UT/levator/AC region NEURO: c/o occasional paresthesia in hand especially when sleeping AROM: shoulder flexion 115 degrees pain ,abduction 110 degrees pain ,ER 85 degrees, IR S1 PROM: shoulder flexion 150 degrees ,abduction 150 in scaption ER pain CAPSULAR RESTRICTION: mod tight SCAPULAR HUMERAL: 1:1 Ratio MMT: ( peak force) infraspinatus 11.2 ,supraspinatus 9.7 ,deltoid ( anterior)15.4 subscapularis Special Tests L Shoulder External Rotation Lag Test - RC Tear: Negative L Shoulder Drop Sign - IS Test: Negative L Shoulder Empty Can - SS: Positive L Shoulder Belly Press - SupScap: Negative L Shoulder Neer - Impingement: Positive L Shoulder Oreilly Ishan - Impingement: Positive L Shoulder Speeds Test - Labrum/Biceps: Negative Balance/Special Test Scores Quick DASH Score: 62.5000 Goals Goal 1:: Patient to be I with HEP for shoulder Goal Time Frame: 4-6 Weeks Goal 2:: Patient to demonstrate 50% improvement with less pain and improve function Goal Time Frame: 4-6 Weeks Goal 3:: Patient to improve oswestry score by 5 points to improve QOL and function Goal Time Frame: 4-6 Weeks Goal 4:: Patient to improve shoulder AROM flexion 150 degrees and abduction 150 degrees for activities above 90 degrees and self hygiene Goal Time Frame: 4-6 Weeks Goal 5:: Patient to improve peak force RTC and deltoid by 5-10# to improve function and ADLS Goal Time Frame: 4-6 Weeks Rehabilitation Potential Physical Therapy Diagnosis: Patient appears to have left shoulder RTC tendinopathy with adhesive capsulitis with decrease ROM impairs ADLs and activities OH and mid, weakness RTC looks good thus benefit from skilled PT Anticipated Interventions Patient/Client Instruction: Educate patient on: Condition and Plan of Care For the Purpose of:: To decrease pain, To increase ROM, To improve muscle performance and motor function, To improve ability to perform ADL's, To increase tolerance to activity/condition/position, To improve ability of physical actions for home/community/work/leisure, To improve health of tissue, To decrease soft tissue restriction, To increase flexibility/ROM and To reduce risk of recurrence Therapeutic Exercise to Include: Strength training, Postural training, Active ROM and Scapular Strength/Stabilization Comment: RTC For the Purpose of:: To decrease pain, To increase ROM, To improve ability to perform ADL's, To improve health of tissue, To decrease soft tissue restriction, To increase flexibility/ROM and To improve balance Manual Therapy Techniques to Include: Mobilization Comment: Koby GR2-3 For the Purpose of:: To decrease pain, To increase ROM, To improve nutrient delivery to tissue, To increase oxygenation perfusion, To improve health of tissue, To decrease soft tissue restriction and To increase flexibility/ROM TENS: Yes IF ES: Yes Cryotherapy (ice pack, ice massage): Yes Thermo therapy (hot pack): Yes Ultrasound (thermal/non thermal): Yes For the Purpose of:: To decrease pain, To increase ROM, To improve ability to perform ADL's, To increase tolerance to activity/condition/position, To improve ability of physical actions for home/community/work/leisure, To improve health of tissue and To decrease soft tissue restriction Text: Thank you for the opportunity to evaluate your patient. For Medicare and Medicare HMO plans, please review the plan of care and approve it. It will need to be FAXED BACK to us at [phone] for Medicare purposes. For Medicare only, by signing this I certify the plan of care. Please let me know if there are questions or concerns regarding this plan of care. Physician Signature: Date:
--- NOTE | 2024-06-26 15:58 | HP.PTDCSUM_ITS ---
Discharge Summary D/C summary: It has been my pleasure to treat BARBARA LIGHT referred by Mayra Escobedo NP- C, with the diagnosis of LEFT SHOULDER PAIN for a total of 6 visit(s). Discharge Date: Please see the following information for a summary of their discharge status. Subjective Subjective: Pain is same Pain Left: Pain Intensity (Out of 10): 7 Objective Objective/Function: Objective: POSTURE: rounded shoulders forward head PALPATION: tender UT/levator/AC region NEURO: c/o occasional paresthesia in hand especially when sleeping AROM: shoulder flexion 110 degrees pain ,abduction 110 degrees pain ,ER 80 degrees, IR S1 PROM: shoulder flexion 140 degrees ,abduction 140 in scaption ER pain CAPSULAR RESTRICTION: mod tight SCAPULAR HUMERAL: 1:1 Ratio MMT: ( peak force) infraspinatus 8.2 ,supraspinatus 6.9,deltoid ( anterior)11.4 subscapularis Goals Goal 1:: Patient to be I with HEP for shoulder Goal 2:: Patient to demonstrate 50% improvement with less pain and improve function Goal 3:: Patient to improve oswestry score by 5 points to improve QOL and function Goal 4:: Patient to improve shoulder AROM flexion 150 degrees and abduction 150 degrees for activities above 90 degrees and self hygiene Goal 5:: Patient to improve peak force RTC and deltoid by 5-10# to improve function and ADLS Plan Plan: RTD MAY BENEFIR FROM MRI PT INTERVENTIONS ROM EX'S ,MANUAL THERAPY G-H joints mobs 2-3 ,RTC/SCAPULAR STRENGTHENING AND POSTURAL EX'S D/C Information d/c sentence: If there are questions or concerns regarding this patient's physical therapy, please feel free to call me at [phone]. Thank you for the referral of this patient. Sincerely, Rory Forrest, PT, Cert MDT, [facility] Balance/Gait/Functional tests Balance/Special Test Scores Quick DASH Score: 62.5000
== END 2024-02-15 19:00 | disposition home or self-care (01) ==
LOC: PT 15:00
PROVIDERS: PCP Nurse Practitioner Family; Referring Provider Nurse Practitioner Family; Visit Provider Nurse Practitioner Family
DX: M25.512 Pain in left shoulder (principal)
CPT/HCPCS: 97035; 97110; 97140; 97162; 97530

== ENCOUNTER 2024-02-26 10:50 | Day surgery (SDC) | payer OTHER, SELFPAY ==
[2024-02-26 11:48] VITALS: BP 185/95; PULSE 76; RESP 16; TEMP 36.5; O2SAT 97; BMI 31.6
--- NOTE | 2024-02-26 12:00 | RAD_ITS ---
STUDY: KNEE INJECTION. RIGHT REASON FOR EXAM: Female, 74 years old. INJECTION, KNEE, RIGHT FLUOROSCOPY TIME (if supplied): ( 6 seconds ) minutes/seconds. 1.11 mGy. 3 images were submitted. TECHNIQUE: Fluoroscopic services provided for right knee injection. RAD/Fluoro Guided Needle Placement IMPRESSION: Fluoroscopic services provided for right knee injection. Electronically Signed: iJmi Morales MD at 12:20 EST ,
[2024-02-26 12:08] VITALS: BP 205/99
[2024-02-26] MEDS: Bupivacaine 0.25% 30 ML Vial (12:09)
[2024-02-26 12:10] VITALS: BP 208/106
[2024-02-26] MEDS: MethylPREDNISolone Acetate 80 MG/ML Vial (12:10)
[2024-02-26] MEDS: Lidocaine 1% (5 ml sdv) 5 ML Vial (12:10)
--- NOTE | 2024-02-26 12:13 | OP.PCM_ITS ---
Operative Report (Standard) Operative Information Date of Procedure: 02/26/24 Pre-Operative Diagnosis: 1 Post-Operative Diagnosis: 1 Surgery/Procedure Performed: 1 absorption and adsorption engineer: No Type of Anesthesia: Local RN Documented Start/Stop Times: Operation Date: 02/26/24 12:00 Case Time Into Pre-Op 02/26/24 11:23 Out of Pre-Op 02/26/24 11:55 Into Room 02/26/24 12:00 Procedure Start 02/26/24 12:08 Procedure End 02/26/24 12:11 Anesthesia Start Procedure Start Time: 12:14 Procedure Stop Time: 12:14 Select all DRAINS/GRAFTS/IMPLANTS that apply: None Estimated Blood Loss: 1 Specimen collected: No Description of surgery: PROCEDURE: Right-sided knee superior medial, superior lateral and inferior medial genicular nerves steroid injection under fluoroscopy guidance. PREOPERATIVE DIAGNOSES: Osteoarthritis of the right knee, postoperative knee pain. POSTOPERATIVE DIAGNOSES: Osteoarthritis of the right knee, postoperative knee pain. ANESTHESIA: Local COMPLICATIONS: None. BLOOD LOSS: Minimal. PROCEDURE IN DETAIL: History and physical today was reviewed. Risks and benefits of procedure explained. The patient understood, agreed to the procedure and informed consent was obtained, IV inserted per routine protocol. The patient was taken to the operating room placed in the supine position. The right knee area was prepped and draped in a sterile fashion using iodine x3. Under fluoroscopy guidance, on an AP view, the right knee joint was visualized. The skin and subcutaneous tissues were anesthetized with approximately 5 mL of 1% lidocaine using a 25-gauge regular needle at the vicinity of the superior medial, superior lateral and inferior medial genicular nerves. Under direct visualization with fluoroscopy, using a 22-gauge 3-1/2-inch spinal needle, starting on the superior medial ending on the inferior medial passing through the superior lateral genicular nerves needle passed through the skin. The tip of the needle was maneuvered and directed towards the diaphyseal junction of each corresponding nerve. Once the tip of the needle was at the vicinity of the genicular nerve after negative aspiration for blood, a total of 12 mL of preservative-free 0.25% Marcaine with 80 mg of Depo-Medrol injected in divided doses between these three levels. The needles were then removed intact. The patient experienced no signs or symptoms of intravascular injection. The patient experienced no paresthesia. The procedure was completed without any apparent difficulty or any complication. The patient appeared to tolerate well. ASSESSMENT AND PLAN: This is a 74-year-old female with postoperative knee pain, osteoarthritis of the right knee status post right knee superior medial/superior lateral/inferior medial genicular nerves steroid injection under fluoroscopy guidance. The patient will continue her current medication. The patient will follow in approximately 2 weeks for Reevaluation. Surgical Findings: 0 Complications Complications: No Admit VTE Documentation VTE Present on Admission: No VTE Mechan Device Prophylaxis: None VTE Pharm Prophylaxis ordered?: No
[2024-02-26 12:15] VITALS: BP 188/83; PULSE 76; RESP 16; TEMP 37.4; O2SAT 99
== END 2024-02-26 12:43 | disposition home or self-care (01) ==
LOC: SDC 10:52 → AC 11:09
PROVIDERS: PCP Nurse Practitioner Family; Referring Provider Anesthesiology Pain Medicine; Visit Provider Anesthesiology Pain Medicine
PROC: 3E0U3GC Introduction of Other Therapeutic Substance into Joints, Percutaneous Approach (ICD-10-PCS; CPT 20610; principal; 2024-02-26 11:55)
DX: M17.11 Unilateral primary osteoarthritis, right knee (principal); Z79.899 Other long term (current) drug therapy; Z79.82 Long term (current) use of aspirin
CPT/HCPCS: 20610; 76000; 77002; A4216

== ENCOUNTER → 2024-03-11 | Outpatient (CLI) | payer OTHER, SELFPAY ==
--- NOTE | 2024-03-11 12:04 | MRI_ITS ---
STUDY: MRI LEFT SHOULDER REASON FOR EXAM: Female, 74 years old. Pain, rule out cuff tear. TECHNIQUE: Standardized fat and water weighted pulse sequences were obtained in all 3 orthogonal planes. COMPARISON: Left shoulder radiographs dated 01/17/2024. FINDINGS: There is mild supraspinatus, infraspinatus, and subscapularis tendinosis without a full-thickness tear. Normal teres minor tendon. Normal supraspinatus muscle. Normal infraspinatus muscle. Normal subscapularis muscle. Normal teres minor muscle. There is glenohumeral arthrosis with joint space narrowing, small marginal osteophyte formation, moderate to high-grade chondromalacia, and subchondral edema/cyst formation in the glenoid. There is a tiny glenohumeral joint effusion There is enthesopathic subcortical cyst formation of the greater tuberosity of the humeral head. Normal biceps labral complex. Normal intracapsular long biceps tendon. Normal labrum. Normal capsulo-ligamentous complex. Normal rotator interval. There is mild hypertrophic acromioclavicular arthrosis. There is a Type II morphology (curved), with a neutral orientation. There is trace subacromial-subdeltoid bursal fluid. Normal visualized coracohumeral and coracoacromial ligaments. Normal quadrilateral space. Normal axillary space. Normal deltoid muscle. Normal trapezius muscle. MRI/Upper Ext Joint Only(Routine) IMPRESSION: Mild supraspinatus, infraspinatus, and subscapularis tendinosis without a full-thickness rotator cuff tear. Glenohumeral arthrosis with a tiny glenohumeral joint effusion. Mild hypertrophic acromioclavicular arthrosis. Minimal subacromial-subdeltoid bursitis. Electronically Signed: Piter Kaufman MD at 11:19 EST ,
== END | disposition home or self-care (01) ==
LOC: MRI 11:57
PROVIDERS: PCP Nurse Practitioner Family; Referring Provider Orthopaedic Surgery Sports Medicine; Visit Provider Orthopaedic Surgery Sports Medicine
DX: M25.512 Pain in left shoulder (principal); M19.012 Primary osteoarthritis, left shoulder
CPT/HCPCS: 73221

== ENCOUNTER 2024-04-01 12:23 | Observation (INO) | payer OTHER, SELFPAY ==
[2024-04-01] VITALS (20 sets, daily range): BP systolic 130–217; BP diastolic 69–124; PULSE 67–94; RESP 16–66; TEMP 36.4–36.8; O2SAT 94–100; BMI 32.2; BMI 31.2
[2024-04-01 12:47] LABS: Bedside Glucose 104 mg/dL (74-106)
--- NOTE | 2024-04-01 12:55 | RAD_ITS ---
PROCEDURE: CHEST 1 VIEW (PORTABLE) REASON FOR EXAM: Stroke. TECHNIQUE: Frontal view of the chest. COMPARISON: None. FINDINGS: The heart size is normal. The lungs are clear. No pleural effusion or pneumothorax is seen. Asymmetric left glenohumeral joint degenerative changes are seen. No acute osseous changes are seen. RAD/Chest 1 View (Portable) IMPRESSION: No evidence of acute cardiopulmonary disease. Negative examination. Reading Location: [id number]
--- NOTE | 2024-04-01 12:55 | EKG12_ITS ---
Test Reason : SYNCOPE Blood Pressure : */* mmHG Vent. Rate : 79 BPM Atrial Rate : 79 BPM P-R Int : 150 ms QRS Dur : 66 ms QT Int : 360 ms P-R-T Axes : 50 35 42 degrees QTcB Int : 412 ms Normal sinus rhythm Normal ECG Confirmed by Jose Miguel Eng ([id number]), television news video editor BOYD TA ([id number]) on 04/02/2024 10:02:37 AM Referred By: BB/ Confirmed By: Jose Miguel Eng
[2024-04-01 13:08] LABS: Absolute Lymphocyte Count 2.09 X10^3/uL (0.83-4.51); Absolute Neutrophil Count 4.3 X10^3/uL (2.0-7.7); Basophil# 0.02 X10^3/uL; Basophil% 0.3 % (0-1); Eosinophil# 0.06 X10^3/uL; Eosinophils% 0.8 % (0-5); Hematocrit 40.3 % (37-47); Hemoglobin 13.6 g/dL (12.0-15.0); Lymphocyte # 2.09 X10^3/ul (0.83-4.51); Lymphocyte % 29.5 % (19-41); Mean Corp Hgb Conc 33.7 g/dL (32-36); Mean Corpuscular Hgb 29.9 pg (27.0-32.0); Mean Corpuscular Volume 88.6 fL (81-99); Mean Platelet Vol. 10.4 fl (6.2-12.0); Monocyte% 8.5 % (0-10); NRBC Flagged by Analyzer 0 % (0-5); Neutrophil # 4.28 X10^3/uL (2.7-7.7); Neutrophil % 60.3 % (47-70); Platelet Count 254 K/mm3 (150-450); RBC Distribution Width CV 12.6 % (11.6-14.6); RBC Distribution Width SD 41.3 fl (35.1-43.9); Red Blood Count 4.55 M/mm3 (4.2-5.4); White Blood Count 7.1 K/mm3 (4.4-11.0)
--- NOTE | 2024-04-01 13:21 | ED.RN ---
this nurse notified dr. saleh of pts left eye vison blurred and inability to repeat back phrase.
[2024-04-01 13:48] LABS: Partial Thromboplast Time 24.5 Seconds (24.1-36.2)
[2024-04-01 13:51] LABS: International Normalized Ratio 0.9; Prothrombin Time (Protime)PT. 12.7 SECONDS (11.7-14.9)
--- NOTE | 2024-04-01 13:57 | CT_ITS ---
PROCEDURE: STROKE BRAIN/HEAD WITHOUT CONT REASON FOR EXAM: Neuro deficit. TECHNIQUE: Multiple axial tomographic images were obtained without intravenous contrast administration. Sagittal and coronal reconstruction was obtained as well. IV CONTRAST: None COMPARISON: None. FINDINGS: Mild degree of cerebral atrophy. Focal area of decreased attenuation in the posterior medial aspect of the right occipital lobe. Possible early infarct should be ruled out. There is evidence of periventricular decreased attenuation suggestive of small- vessel disease. CT/STROKE Brain/Head without Cont IMPRESSION: Findings suggestive of early ischemic change in the posterior medial aspect of the right occipital lobe. The referring physician Dr. Norman from the ER was notified. One or more dose reduction techniques were used (e.g., Automated exposure contr ol, adjustment of the mA and/or kV according to patient size, use of iterative reconstruction technique). Reading Location: [place] [id number]
--- NOTE | 2024-04-01 14:03 | EX.ED.DYSGE1 ---
HPI History of Present Illness Chief Complaint: Syncope Informant: patient Narrative Narrative: Patient was standing at work when she began to feel like the room was spinning. She states she had blurry vision and then felt like the room went black. She states she was still hearing people talking. She was lowered to the floor. She did not hit her head. She did not lose consciousness. Denies chest pain. States she feels that she has difficulty getting words out. She has history of vertigo and syncope but states this feels different than her previous symptoms. She is on aspirin daily. Prior similar symptoms: No Recent Illness/Hospitalization: No [facility] Medical History GERD (gastroesophageal reflux disease) Primary osteoarthritis, left shoulder Left shoulder pain Wears glasses Post-menopausal History of Clostridium difficile infection Depression Anxiety History of steroid therapy Thyroid disease Rheumatoid arthritis Arthritis High cholesterol Back pain Injury of head and neck History of hiatal hernia Gastric reflux Non-smoker Shortness of breath on exertion History of pain when walking Cardiology follow-up encounter Hypertension Home Medications ?Medication ?Instructions ?Recorded ?Last Taken ?Type levomefolate 7.5 mg-algal oil 15 mg PO DAILY NERVES 07/23/13 02/24/24 History 90.314 mg capsule (Deplin (algal oil)) amlodipine 10 mg tablet 10 mg PO DAILY BP #30 tabs 03/14/17 02/25/24 Rx ergocalciferol (vitamin D2) 1,250 50,000 unit PO .2X WEEK SUPPLEMENT 05/31/23 02/25/24 History mcg (50,000 unit) capsule (Vitamin D2) ferrous sulfate 325 mg (65 mg 325 mg PO .QOD SUPPLEMENT 05/31/23 02/25/24 History iron) tablet levothyroxine 125 mcg capsule 187.5 mcg PO DAILY THYROID 05/31/23 02/25/24 History levothyroxine 125 mcg tablet 125 mcg PO MOTUWETHFRSA THYROID 05/31/23 06/14/23 History losartan 25 mg tablet 25 mg PO DAILY BP 05/31/23 02/25/24 History acetaminophen 500 mg tablet 1,000 mg (2 x 500 mg) PO TID #0 06/15/23 02/25/24 Rx tabs aspirin 81 mg chewable tablet 81 mg PO BIDCM 30 days #60 tabs 06/15/23 02/25/24 Rx chlorthalidone 25 mg tablet 25 mg PO DAILY 03/28/24 Unknown History lorazepam 0.5 mg tablet 0.5 mg PO BID PRN anxiety 03/28/24 Unknown History meclizine 25 mg tablet 25 mg PO 4X/DAY PRN dizziness 03/28/24 Unknown History pantoprazole 40 mg tablet,delayed 40 mg PO QDAY 03/28/24 Unknown History release venlafaxine 37.5 mg 37.5 mg PO QDAY 03/28/24 Unknown History capsule,extended release 24 hr Allergy/AdvReac Type Severity Reaction Status Date / Time albuterol Allergy Swelling Verified 04/01/24 12:28 lidocaine (From Lidoderm) Allergy Hives Verified 04/01/24 12:28 Family History Brother Kidney disease Myocardial infarction Brother CAD (coronary artery disease) Myocardial infarction Mother Hypertension Thyroid disorder Father Myocardial infarction Brain aneurysm Other Heart disease Surgical History Hx of arthroscopic knee surgery Hx of surgical procedure History of carpal tunnel surgery of right wrist Hx of tubal ligation History of laparoscopic cholecystectomy Hx of appendectomy History of hip replacement Total knee replacement status Social History household members: spouse Smoking Status: Never smoker ROS ROS ED Constitutional Constitutional ED: Denies fever(s) Eyes Eyes: Denies change in vision ENT ENT ED: Denies rhinorrhea or sore throat Cardiovascular Cardiovascular: Denies chest pain or palpitations Respiratory/Chest Respiratory/Chest: Denies cough or dyspnea Gastrointestinal Gastrointestinal: Denies abdominal pain, diarrhea, nausea or vomiting Genitourinary Genitourinary ED: Denies dysuria Musculoskeletal Musculoskeletal: Denies myalgias Integumentary Denies rash Neurologic Neurologic: Reports other Details: vision changes, vertigo, difficulty with speech ; Denies headache(s) Psychiatric Psychiatric: Denies suicidal thoughts EXAM Physical Exam Const Vital Signs: 04/01/24 12:24 04/01/24 12:38 04/01/24 12:59 Temperature 97.6 F L Temperature Source Oral Pulse Rate 81 Pulse Rate [Lying] Pulse Rate [Sitting (for 1 minute prior to obtaining)] Pulse Rate [Standing (for 1 minute prior to obtaining)] Respiratory Rate 20 H Respiratory Effort Normal Non-Labored Respiratory Pattern Normal Blood Pressure 199/87 H Blood Pressure [Lying] Blood Pressure [Sitting (for 1 minute prior to obtaining)] Blood Pressure [Standing (for 1 minute prior to obtaining)] Blood Pressure Mean 124 Blood Pressure Mean [Lying] Blood Pressure Mean [Sitting (for 1 minute prior to obtaining)] Blood Pressure Mean [Standing (for 1 minute prior to obtaining)] Pulse Ox 99 100 Oxygen Delivery Method Room Air Room Air 04/01/24 13:10 04/01/24 13:11 04/01/24 13:30 Temperature Temperature Source Pulse Rate 77 77 Pulse Rate [Lying] 77 Pulse Rate [Sitting (for 1 minute prior to obtaining)] 76 Pulse Rate [Standing (for 1 minute prior to obtaining)] 78 Respiratory Rate 17 16 Respiratory Effort Respiratory Pattern Blood Pressure 198/82 H 196/89 H Blood Pressure [Lying] 182/108 H Blood Pressure [Sitting (for 1 minute prior to obtaining)] 203/83 H Blood Pressure [Standing (for 1 minute prior to obtaining)] 195/86 H Blood Pressure Mean 120 124 Blood Pressure Mean [Lying] 132 Blood Pressure Mean [Sitting (for 1 minute prior to obtaining)] 123 Blood Pressure Mean [Standing (for 1 minute prior to obtaining)] 122 Pulse Ox 98 99 Oxygen Delivery Method Room Air 04/01/24 14:00 04/01/24 14:18 04/01/24 14:24 Temperature Temperature Source Pulse Rate 94 91 Pulse Rate [Lying] Pulse Rate [Sitting (for 1 minute prior to obtaining)] Pulse Rate [Standing (for 1 minute prior to obtaining)] Respiratory Rate 18 Respiratory Effort Respiratory Pattern Blood Pressure 217/124 H 211/95 H Blood Pressure [Lying] Blood Pressure [Sitting (for 1 minute prior to obtaining)] Blood Pressure [Standing (for 1 minute prior to obtaining)] Blood Pressure Mean 155 133 Blood Pressure Mean [Lying] Blood Pressure Mean [Sitting (for 1 minute prior to obtaining)] Blood Pressure Mean [Standing (for 1 minute prior to obtaining)] Pulse Ox 98 98 Oxygen Delivery Method Room Air 04/01/24 14:30 04/01/24 15:00 Temperature Temperature Source Pulse Rate 78 78 Pulse Rate [Lying] Pulse Rate [Sitting (for 1 minute prior to obtaining)] Pulse Rate [Standing (for 1 minute prior to obtaining)] Respiratory Rate 17 16 Respiratory Effort Respiratory Pattern Blood Pressure 174/78 H 179/76 H Blood Pressure [Lying] Blood Pressure [Sitting (for 1 minute prior to obtaining)] Blood Pressure [Standing (for 1 minute prior to obtaining)] Blood Pressure Mean 110 110 Blood Pressure Mean [Lying] Blood Pressure Mean [Sitting (for 1 minute prior to obtaining)] Blood Pressure Mean [Standing (for 1 minute prior to obtaining)] Pulse Ox 94 98 Oxygen Delivery Method Positive well nourished and well developed General Appearance ED: well developed HEENT Reports normocephalic and head/scalp atraumatic Eyes PERRL and EOMs intact bilaterally Neck supple General: Negative for tenderness Chest Wall inspection of chest normal Resp normal respiratory effort and clear to auscultation bilaterally Cardio regular rate and regular rhythm GI non-tender and non-distended Palpation: soft; Negative for guarding or rebound tenderness present no CVA tenderness Extremity normal to inspection Neuro oriented x3 Neuro Narrative: Mild expressive aphasia, NIH 1. Normal strength and sensation. Normal speech. Sensorium / Orientation: alert Psych mental status grossly normal MDM MDM MDM Narrative Medical decision making narrative: Stroke alert was activated. Patient was taken to CT scan. EKG showed sinus rhythm rate of 79 with no acute ischemic changes. Chest x-ray read by myself and radiology shows no acute process. Patient is not a tenecteplase candidate due to low NIH and rapid improvement of her symptoms. Initially tele neurology felt symptoms were related to presyncope. CT head shows finding suggestive of early ischemic change in the posterior medial aspect of the right occipital lobe. Discussed with teleneurology. With patient's low NIH no tenecteplase is indicated at this time. CBC unremarkable. BUN 20, creatinine 1.31. Previous creatinine 0.89. CTA head and neck shows minimal plaque right carotid, plaque formation causing between 50 to 60% narrowing left carotid, no large vessel occlusion. Patient was given labetalol for blood pressure 217/124 with improvement to 179/76. Discussed with hospitalist for admission. History & Record Review Discussion w/independent historian: Patient Lab Data Attestation: I reviewed the patient's lab results. Labs: Laboratory Results - last 24 hr 04/01/24 12:30 WBC 7.1 RBC 4.55 Hgb 13.6 Hct 40.3 MCV 88.6 MCH 29.9 MCHC 33.7 RDW Std Deviation 41.3 RDW Coeff of Sharmila 12.6 Plt Count 254 MPV 10.4 Immature Gran % (Auto) 0.600 Neut % (Auto) 60.3 Lymph % (Auto) 29.5 [place] % (Auto) 8.5 Eos % (Auto) 0.8 Baso % (Auto) 0.3 Absolute Neuts (auto) 4.3 Absolute Lymphs (auto) 2.09 Nucleated RBC % 0 PT 12.7 INR 0.9 APTT 24.5 Sodium 138 Potassium 3.8 Chloride 102 Carbon Dioxide 27.0 Anion Gap 9 BUN 20 H Creatinine 1.31 H Estim Creat Clear Calc 38.35 Est GFR (MDRD) Af Amer 51 L Est GFR (MDRD) Non-Af 42 L BUN/Creatinine Ratio 15.3 Glucose 107 H Calcium 9.5 Troponin I High Sens 11 POC Glucose 104 Radiography Chest X-Ray - ED: 1 View, Read by ED Physician and Read by Radiologist Diagnostic Testing: Clinical Impression(s) from Imaging Studies Chest X-Ray 04/01/24 12:55 IMPRESSION: No evidence of acute cardiopulmonary disease. Negative examination. Reading Location: [address] Brain [address] 04/01/24 13:57 IMPRESSION: Findings suggestive of early ischemic change in the posterior medial aspect of the right occipital lobe. The referring physician Dr. Norman from the ER was notified. One or more dose reduction techniques were used (e.g., Automated exposure control, adjustment of the mA and/or kV according to patient size, use of iterative reconstruction technique). Reading Location: [facility]-1 Head/Neck CTA 04/01/24 14:04 IMPRESSION: RIGHT CAROTID: Minimal plaque. LEFT CAROTID: Plaque formation causing between 50 and 60% narrowing. VERTEBRALS: Unremarkable INTRACRANIAL: No large vessel occlusion. One or more dose reduction techniques were used (e.g., Automated exposure control, adjustment of the mA and/or kV according to patient size, use of iterative reconstruction technique). Reading Location: [facility]--1 EKG Initial EKG: Attestation: I personally reviewed and interpreted this EKG as follows: Interpretation: Sinus Rhythm Management Discussion w/another healthcare provider: Hospitalist and Clerical Supervisor Discharge Plan Dx/Rx/DC Orders Clinical Impression: Vertigo, Occipital stroke Disposition Disposition: Acute Care Hospital [facility]
--- NOTE | 2024-04-01 14:04 | CT_ITS ---
PROCEDURE: STROKE CTA HEAD AND NECK W/CON REASON FOR EXAM: Neuro deficit. Possible stroke. TECHNIQUE: CTA imaging of the head and neck from the aortic arch to the skull vertex with intravenous contrast. 3D reconstructions. CONTRAST: 100 cc of Isovue 370. COMPARISON: Comparison is made with prior unenhanced CT scan of the head done earlier in the day. FINDINGS: Heterogeneous enlargement of both lobes of the thyroid gland slightly worse on the right side. This is suggestive of goiter is change. Aortic Arch: Normal size and branching pattern. Mild atherosclerotic plaque. Brachiocephalic and Subclavians: Mild atherosclerotic plaque without significant stenosis. RIGHT Carotid: Right CCA: Unremarkable. Right ICA: Mild calcified and soft plaque. Maximum stenosis (NASCET): <50 % Right ECA: Unremarkable. LEFT Carotid: Left CCA: Unremarkable. Left ICA: Moderate calcified and soft plaque. Maximum stenosis (NASCET): 60 % Left ECA: Unremarkable. Vertebrals: Codominant. Arise from the subclavians. Both vertebrals form the basilar. RIGHT Vertebral: Unremarkable. LEFT Vertebral: Unremarkable. No intracranial aneurysms or large vascular malformations are identified. Anterior cerebral arteries: Unremarkable. Middle cerebral arteries: Unremarkable. Basilar artery: Unremarkable. Posterior cerebral arteries: origin of the right posterior cerebral artery. Other major branches of the posterior circulation: Unremarkable. Major venous structures: Unremarkable. Other findings: No lymphadenopathy. Lung apices are clear. Bones are unremarkable. CT/STROKE CTA Head AND Neck W/Con IMPRESSION: RIGHT CAROTID: Minimal plaque. LEFT CAROTID: Plaque formation causing between 50 and 60% narrowing. VERTEBRALS: Unremarkable INTRACRANIAL: No large vessel occlusion. One or more dose reduction techniques were used (e.g., Automated exposure contr ol, adjustment of the mA and/or kV according to patient size, use of iterative reconstruction technique). Reading Location: [place] [id number]
[2024-04-01] MEDS: Aspirin 81 MG TAB.CHEW 324 MG PO (14:17)
--- NOTE | 2024-04-01 14:24 | ED.RN ---
prn iv 20mg labetolol okay to give per. dr. saleh
--- NOTE | 2024-04-01 14:39 | CHAPLAIN ---
Type of Pastoral Visit ___ Initial Visit ___ Follow-up Visit ___ On-call Visit ___ General Patient Visit ___ Spiritual Assessment ___ Family Conference ___ Bereavement _x__ Rapid Response ___ Code Blue ___ Other (describe below) Pastoral Care Referral From ___ Patient ___ Family ___ Nurse ___ Physician ___ Spark Plug Assembler ___ Cager Operator _x__ Other (describe below) Sacrament/Intervention _x__ Active listening ___ Anointing ___ Mandaen ___ Bereavement ___ Communion ___ Rajwinder exploration ___ ___ Life review ___ Prayer ___ Reconciliation ___ Sacrament of Sick _x__ Supportive presence ___ Wedding ___ Other (describe below) Pastoral Comments responded to stroke alert in ED; patient was in CT but spouse was in the room and talking with the SW; offered support to spouse who admitted that he was nervous but doing okay; offered beverage and spouse accepted a water; spouse made conversation about and the situation but had no particular needs; patient was brought back to the room for online consultation and she was alert and oriented
[2024-04-01 14:44] LABS: Anion Gap 9 (5-15); BUN 20 mg/dL (7-18); BUN/Creat Ratio 15.3 RATIO (10-20); Calcium,Total 9.5 mg/dL (8.5-10.1); Chloride 102 mmol/L (98-107); Creatinine, Serum 1.31 mg/dL (0.55-1.02); EST Glomerular Filtration Rate 42 mL/min (>60); Est Glom Filt Rate - Afr Amer 51 mL/min (>60); Estimated Creatinine Clearance 38.35 ml/min; Glucose 107 mg/dL (74-106); Potassium 3.8 mmol/L (3.5-5.1); Sodium Level 138 mmol/L (136-145); Troponin-I HS 11 pg/mL (3.0-54.0)
--- NOTE | 2024-04-01 15:18 | PCM.HP.STD ---
HPI - General General Date of Admission: 04/01/24 Date of Service: 04/01/24 Chief Complaint: Ataxia/Vertigo HPI Narrative BARBARA LIGHT, is a 74 F who presented to the emergency department at [facility] on 03/29/2024 with a chief complaint of presyncope. 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 She noted blurred vision and then felt like the room went black however she could still hear people talking. She was lowered to the floor and had no injury. She never had loss of consciousness. She had no chest pain or shortness of breath. She did feel like she was having trouble getting her words out but did not feel that they were dysarthric. She does have a history of vertigo and syncope however stated this episode felt different from her previous episodes. At the time my evaluation she felt that most of her symptoms were resolved but she was just very fatigued at that time. She did complain of some mild blurred vision in her left eye but no visual field cut. Vital signs on presentation showed a temperature of 97.6, heart rate 81, respiratory 20, blood pressure initially 199/87 with pulse ox of 99% on room air. Repeat blood pressure was 174/78. CBC was unremarkable. Coags were normal. Chemistry panel shows mild NOAH with a serum creatinine of 1.31 and a baseline of 0.7-0.9. Glucose was noted to be elevated at 107. Troponin was normal. Chest x-ray is unremarkable. EKG was sinus rhythm with no ST-T wave changes concerning for acute ischemia. CT of the brain was read as findings suggestive of early ischemic changes in the right posterior medial aspect of the right occipital lobe. CTA of the head and neck showed minimal plaque in the right carotid artery, left carotid artery stenosis between 50 and 60% and normal vertebrals with no LVO. Neurology was consulted by the emergency department and they recommend admission for stroke rule out but felt that her presentation was atypical for stroke. NIH of 0 at the time of their evaluation. [facility] Medical History Neurocardiogenic syncope GERD (gastroesophageal reflux disease) Primary osteoarthritis, left shoulder Left shoulder pain Wears glasses Post-menopausal History of Clostridium difficile infection Depression Anxiety History of steroid therapy Thyroid disease Rheumatoid arthritis Arthritis High cholesterol Back pain Injury of head and neck History of hiatal hernia Gastric reflux Non-smoker Shortness of breath on exertion History of pain when walking Cardiology follow-up encounter Hypertension Home Medications ?Medication ?Instructions ?Recorded ?Last Taken ?Type levomefolate 7.5 mg-algal oil 15 mg PO DAILY NERVES 07/23/13 02/24/24 History 90.314 mg capsule (Deplin (algal oil)) amlodipine 10 mg tablet 10 mg PO DAILY BP #30 tabs 03/14/17 04/01/24 Rx ergocalciferol (vitamin D2) 1,250 50,000 unit PO .2X WEEK SUPPLEMENT 05/31/23 03/31/24 History mcg (50,000 unit) capsule (Vitamin D2) ferrous sulfate 325 mg (65 mg 325 mg PO .QOD SUPPLEMENT 05/31/23 03/31/24 History iron) tablet levothyroxine 125 mcg capsule 187.5 mcg PO .aydaily THYROID 05/31/23 02/25/24 History levothyroxine 125 mcg tablet 125 mcg PO MOTUWETHFRSA THYROID 05/31/23 06/14/23 History losartan 25 mg tablet 25 mg PO DAILY BP 05/31/23 02/25/24 History chlorthalidone 25 mg tablet 25 mg PO QHS cholesterol 03/28/24 03/31/24 History lorazepam 0.5 mg tablet 0.5 mg PO BID PRN anxiety 03/28/24 Unknown History meclizine 25 mg tablet 25 mg PO 4X/DAY PRN dizziness 03/28/24 Unknown History pantoprazole 40 mg tablet,delayed 40 mg PO QDAY 03/28/24 04/01/24 History release venlafaxine 37.5 mg 37.5 mg PO QDAY 03/28/24 Unknown History capsule,extended release 24 hr acetaminophen 500 mg tablet 1,000 mg PO TID PRN pain 04/01/24 03/31/24 History alendronate 70 mg tablet 70 mg PO .dailysundays bone 04/01/24 03/31/24 History ascorbic acid (vitamin C) 500 mg 500 mg PO BID 04/01/24 Unknown History capsule,extended release aspirin 81 mg chewable tablet 81 mg PO DAILY 04/01/24 04/01/24 History Allergy/AdvReac Type Severity Reaction Status Date / Time albuterol Allergy Swelling Verified 04/01/24 12:28 lidocaine (From Lidoderm) Allergy Hives Verified 04/01/24 12:28 Family History Brother Kidney disease Myocardial infarction Brother CAD (coronary artery disease) Myocardial infarction Mother Hypertension Thyroid disorder Father Brain aneurysm Myocardial infarction Other Heart disease Surgical History Hx of arthroscopic knee surgery Hx of surgical procedure History of carpal tunnel surgery of right wrist Hx of tubal ligation History of laparoscopic cholecystectomy Hx of appendectomy History of hip replacement Total knee replacement status Social History (Updated 04/01/24 @ 22:[address] Chelsea Kaufman DO) household members: spouse Smoking Status: Former smoker alcohol intake: never substance use type: does not use ROS Constitutional Constitutional: Reports weakness; Denies anorexia, change in weight, chills, fatigue, fever(s), malaise, night sweats or other Eyes Eyes: Denies blurry vision, change in eye color, change in vision, discharge from eye(s), double vision, erythema, eye pain, loss of vision or other ENT HEENT: Denies abnormal hearing, dysphagia, ear pain, epistaxis, headache(s), hearing loss, nasal congestion, nasal discharge, post nasal drip, sinus pressure, sore throat or other Cardiovascular Cardiovascular: Reports lightheadedness and other Details: Presyncope ; Denies chest pain, claudication, dyspnea on exertion, edema, orthopnea, palpitations, paroxysmal nocturnal dyspnea, rapid heart rate or syncope Respiratory/Chest Respiratory/Chest: Denies cough, dyspnea, excessive phlegm production, hemoptysis, productive cough, shortness of breath at rest, shortness of breath with exertion, wheezing or other Gastrointestinal Gastrointestinal: Denies abdominal pain, coffee ground emesis, constipation, diarrhea, dyspepsia, hematemesis, hematochezia, loose stools, melena, nausea, vomiting or other Genitourinary Genitourinary: Denies burning urination, difficulty urinating, dysuria, hematuria, nocturia, urinary frequency, urinary hesitancy, urinary incontinence, urinary urgency or other Musculoskeletal Musculoskeletal: Denies arthralgias, back pain, joint pain, joint stiffness, joint swelling, myalgias, neck pain or other Neurologic Neurologic: Reports disequilibrium; Denies abnormal gait, abnormal speech, confusion, dizziness, focal weakness, headache(s), numbness, paresthesias, seizure-like activity, seizures, syncope, tingling, tremor(s) or other Psychiatric Psychiatric: Reports anxiety and depression; Denies homicidal ideation, suicidal ideation or other Endocrine Endocrinology: Denies change in body appearance, cold intolerance, excessive sweating, heat intolerance, polydipsia, polyuria or other Hematologic/Lymphatic Hematologic/Lymphatic: Denies anemia, easy bleeding, easy bruising, lymphadenopathy or other Allergic/Immunologic Allergic/Immunologic: Denies rhinitis, hives, eczemia, asthma or other Vital Signs Vital Signs Vital Signs: 04/01/24 12:24 04/01/24 12:38 04/01/24 12:59 Temperature 97.6 F L Temperature Source Oral Pulse Rate 81 Pulse Rate [Lying] Pulse Rate [Sitting (for 1 minute prior to obtaining)] Pulse Rate [Standing (for 1 minute prior to obtaining)] Respiratory Rate 20 H Respiratory Effort Normal Non-Labored Respiratory Pattern Normal Blood Pressure 199/87 H Blood Pressure [Lying] Blood Pressure [Sitting (for 1 minute prior to obtaining)] Blood Pressure [Standing (for 1 minute prior to obtaining)] Blood Pressure Mean 124 Blood Pressure Mean [Lying] Blood Pressure Mean [Sitting (for 1 minute prior to obtaining)] Blood Pressure Mean [Standing (for 1 minute prior to obtaining)] Pulse Ox 99 100 Oxygen Delivery Method Room Air Room Air 04/01/24 13:10 04/01/24 13:11 04/01/24 13:30 Temperature Temperature Source Pulse Rate 77 77 Pulse Rate [Lying] 77 Pulse Rate [Sitting (for 1 minute prior to obtaining)] 76 Pulse Rate [Standing (for 1 minute prior to obtaining)] 78 Respiratory Rate 17 16 Respiratory Effort Respiratory Pattern Blood Pressure 198/82 H 196/89 H Blood Pressure [Lying] 182/108 H Blood Pressure [Sitting (for 1 minute prior to obtaining)] 203/83 H Blood Pressure [Standing (for 1 minute prior to obtaining)] 195/86 H Blood Pressure Mean 120 124 Blood Pressure Mean [Lying] 132 Blood Pressure Mean [Sitting (for 1 minute prior to obtaining)] 123 Blood Pressure Mean [Standing (for 1 minute prior to obtaining)] 122 Pulse Ox 98 99 Oxygen Delivery Method Room Air 04/01/24 14:00 04/01/24 14:18 04/01/24 14:24 Temperature Temperature Source Pulse Rate 94 91 Pulse Rate [Lying] Pulse Rate [Sitting (for 1 minute prior to obtaining)] Pulse Rate [Standing (for 1 minute prior to obtaining)] Respiratory Rate 18 Respiratory Effort Respiratory Pattern Blood Pressure 217/124 H 211/95 H Blood Pressure [Lying] Blood Pressure [Sitting (for 1 minute prior to obtaining)] Blood Pressure [Standing (for 1 minute prior to obtaining)] Blood Pressure Mean 155 133 Blood Pressure Mean [Lying] Blood Pressure Mean [Sitting (for 1 minute prior to obtaining)] Blood Pressure Mean [Standing (for 1 minute prior to obtaining)] Pulse Ox 98 98 Oxygen Delivery Method Room Air 04/01/24 14:30 04/01/24 15:00 Temperature Temperature Source Pulse Rate 78 78 Pulse Rate [Lying] Pulse Rate [Sitting (for 1 minute prior to obtaining)] Pulse Rate [Standing (for 1 minute prior to obtaining)] Respiratory Rate 17 16 Respiratory Effort Respiratory Pattern Blood Pressure 174/78 H 179/76 H Blood Pressure [Lying] Blood Pressure [Sitting (for 1 minute prior to obtaining)] Blood Pressure [Standing (for 1 minute prior to obtaining)] Blood Pressure Mean 110 110 Blood Pressure Mean [Lying] Blood Pressure Mean [Sitting (for 1 minute prior to obtaining)] Blood Pressure Mean [Standing (for 1 minute prior to obtaining)] Pulse Ox 94 98 Oxygen Delivery Method Weight Weight: 82.6 kg Body Mass Index (BMI) 32.2 Physical Exam Const alert, oriented x3, no apparent distress, healthy appearing and well nourished; Negative for average body habitus Constitutional Narrative: Obese, elderly, white female, sitting up in bed, appears comfortable at this time, nontoxic appearing General Appearance: cooperative HEENT normocephalic, head/scalp atraumatic, hearing grossly normal bilaterally and moist oral mucous membranes HEENT Narrative: Mallampati 3, no thrush Eyes EOMs intact bilaterally and conjunctivae normal Eyes Narrative: No scleral icterus Neck no lymphadenopathy, supple and no carotid bruits Neck Narrative: Trachea midline, no thyroid enlargement Resp normal respiratory effort, no retractions, no use of accessory muscles and clear to auscultation bilaterally Auscultation: Negative for rales, rhonchi or wheezes Cardio regular rate, regular rhythm, S1 normal heart sound, S2 normal heart sound, no murmurs, no rub, no gallops and no clicks GI normal to inspection, nondistended, normoactive bowel sounds, soft to palpation and non-tender Extremity no clubbing, cyanosis or edema Extremity Narrative: Pedal pulses and radial pulses are 2+ Neuro oriented x3, moves all extremities and no focal motor deficits Speech: speech normal Psych Psych Narrative: Affect is slightly flat, patient interacts appropriately and mood seems stable Results Lab / Micro Data 04/01/24 12:30 04/01/24 12:30 Labs: Laboratory Results - last 24 hr 04/01/24 12:30: WBC 7.1, RBC 4.55, Hgb 13.6, Hct 40.3, MCV 88.6, MCH 29.9, MCHC 33.7, RDW Std Deviation 41.3, RDW Coeff of Sharmila 12.6, Plt Count 254, MPV 10.4, Immature Gran % (Auto) 0.600, Neut % (Auto) 60.3, Lymph % (Auto) 29.5, [place] % (Auto) 8.5, Eos % (Auto) 0.8, Baso % (Auto) 0.3, Absolute Neuts (auto) 4.3, Absolute Lymphs (auto) 2.09, Nucleated RBC % 0, PT 12.7, INR 0.9, APTT 24.5, Sodium 138, Potassium 3.8, Chloride 102, Carbon Dioxide 27.0, Anion Gap 9, BUN 20 H, Creatinine 1.31 H, Estim Creat Clear Calc 38.35, Est GFR (MDRD) Af Amer 51 L, Est GFR (MDRD) Non-Af 42 L, BUN/Creatinine Ratio 15.3, Glucose 107 H, Calcium 9.5, Troponin I High Sens 11, POC Glucose 104 Imaging Radiology Impression Chest X-Ray 04/01/24 12:55 IMPRESSION: No evidence of acute cardiopulmonary disease. Negative examination. Reading Location: [id number] Brain CT 04/01/24 13:57 IMPRESSION: Findings suggestive of early ischemic change in the posterior medial aspect of the right occipital lobe. The referring physician Dr. Norman from the ER was notified. One or more dose reduction techniques were used (e.g., Automated exposure control, adjustment of the mA and/or kV according to patient size, use of iterative reconstruction technique). Reading Location: [facility] Head/Neck CTA 04/01/24 14:04 IMPRESSION: RIGHT CAROTID: Minimal plaque. LEFT CAROTID: Plaque formation causing between 50 and 60% narrowing. VERTEBRALS: Unremarkable INTRACRANIAL: No large vessel occlusion. One or more dose reduction techniques were used (e.g., Automated exposure control, adjustment of the mA and/or kV according to patient size, use of iterative reconstruction technique). Reading Location: [facility] Assessment & Plan Assessment/Plan (1) Occipital stroke: (2) Vertigo: (3) NOAH (acute kidney injury): PLAN: Plan Acute occipital stroke/vertigo/presyncope -Noted on CT of the brain -CTA of the head and neck shows no LVO and minimal right carotid plaque, 50 to 60% left carotid plaque and unremarkable vertebrals -Start statin 80 mg daily -Continue home aspirin 81 mg daily -Hold home antihypertensives and allow for permissive hypertension with as needed IV antihypertensives per stroke protocol -NIH per stroke protocol -Check lipid panel -Check hemoglobin A1c -PT/OT consultation -Check MRI of the brain -Check echocardiogram -Neuro consultation NOAH -Creatinine was 1.31 -Baseline is 0.7-0.9 -1 L IV fluids -Recheck lab in a.m. Hypothyroidism -Continue home levothyroxine -Check a.m. TSH GERD -Continue home PPI Essential hypertension -Hold home antihypertensives and allow for some permissive hypertension with concerns of stroke -As needed available per stroke protocol -Anticipate reinitiation of antihypertensives within the next 24 to 48 hours depending on findings on MRI Vitamin D deficiency -Restart ergocalciferol at discharge History of vertigo -Continue home as needed meclizine History of syncope -Follows as an outpatient with cardiology Osteoarthritis -As needed Tylenol available Osteoporosis -Restart alendronate at discharge Obesity -BMI 41.2 -Recommend weight loss -Complicates treatment, prognosis, outcomes DVT prophylaxis -Subcu Lovenox 40 daily CODE STATUS -Full code as verified on admission Charges/Coding Visit Charges Inpatient E&M: 06300 Init Hosp L2
--- NOTE | 2024-04-01 15:29 | MRI_ITS ---
PROCEDURE: BRAIN WITHOUT CONTRAST REASON FOR EXAM: Neurologic deficit, stroke, vertigo TECHNIQUE: Multisequence multiplanar MR images of the brain were obtained without the administration of intravenous contrast. COMPARISON: 04/01/2024 CTA FINDINGS: No diffusion restriction to suggest acute/subacute ischemia. No evidence of acute intracranial hemorrhage, midline shift or mass effect. Age related atrophy. Scattered periventricular, subcortical and deep white matter hyperintense FLAIR signal foci most consistent with chronic small-vessel ischemic disease. No cortical edema. Globes are intact. Paranasal sinuses and mastoid air cells are clear. MRI/Brain without Contrast IMPRESSION: 1. No acute intracranial abnormality, specifically no evidence of acute/subacut e ischemia. 2. Chronic small vessel ischemic changes. Reading Location: [facility]
--- NOTE | 2024-04-01 15:29 | ECHOD_ITS ---
Reason For Study Reason For Study: TIA/Stroke Procedure This was a 2D Doppler, Color Flow transthoracic echocardiogram. Exam performed portable in patient room. Left Ventricle Normal LV size. The estimated ejection fraction is 60 %. No evidence for diastolic dysfunction. No regional wall motion abnormalities noted. Right Ventricle Normal RV size. Normal systolic function. Atria The left and right atria are normal. No doppler evidence for ASD. Mitral Valve There is moderate mitral annular calcification. There is no mitral valve stenosis. Trivial mitral valve insufficiency. Tricuspid Valve There is no tricuspid stenosis. Unable to estimate RV systolic pressure due to insufficient tricuspid regurgitant envelope. Trivial tricuspid valve insufficiency. Aortic Valve Trisinus/trileaflet aortic valve. There is no aortic stenosis. No aortic valve insufficiency. Pulmonic Valve There is no pulmonic valvular stenosis. Trivial pulmonic valve insufficiency. Great Vessels Normal aortic root. Pericardium/Pleural No pericardial effusion. MMode/2D Measurements & Calculations LVIDd: 3.5 cm IVSd: 0.86 cm Ao root diam: 3.1 cm LVIDs: 2.0 cm LVPWd: 1.1 cm RVDd: 2.9 cm FS: 43.4 % LAV(MOD-bp): 23.7 ml LVAd ap4: 18.5 cm2 SV(MOD-sp4): 27.6 ml LAV(MOD-bp) Indexed: 12.7 ml/m2 LVLd ap4: 6.8 cm SI(MOD-sp4): 14.9 ml/m2 LAV(MOD-sp2): 11.9 ml EDV(MOD-sp4): 40.8 ml LAV(MOD-sp4): 42.7 ml EDV(sp4-el): 42.6 ml LVAs ap4: 9.0 cm2 LVLs ap4: 5.2 cm ESV(MOD-sp4): 13.2 ml ESV(sp4-el): 13.1 ml EF(MOD-sp4): 67.6 % EF(sp4-el): 69.3 % SV(sp4-el): 29.5 ml LA A4 area: 16.0 cm2 LA dimension(2D): 3.4 cm RA A4 area: 7.4 cm2 Time Measurements MV dec time: 0.25 sec Doppler Measurements & Calculations MV E max fernandez: 72.3 cm/sec Lat Peak E' Fernandez: 7.3 cm/sec Med Peak E' Fernandez: 7.8 cm/sec MV A max fernandez: 106.8 cm/sec E/E' lat: 10.0 E/E' med: 9.3 MV E/A: 0.68 Ao V2 max: 137.3 cm/sec LV V1 max: 117.0 cm/sec MV dec slope: 291.4 cm/sec2 Ao max P.5 mmHg LV V1 max P.5 mmHg Ao V2 mean: 105.0 cm/sec Ao mean P.6 mmHg Ao V2 VTI: 31.8 cm PA V2 max: 83.1 cm/sec TR max fernandez: 252.0 cm/sec TR max P.4 mmHg ECHO/Echo Complete Interpretation Summary The estimated ejection fraction is 60 %. No evidence for diastolic dysfunction. Trivial mitral valve insufficiency. Ordering Physician: Chelsea Kaufman Referring Physician: Mayra Escobedo Performed By: Ivy Leal RDCS, RVT
[2024-04-01 16:33] LABS: Hemoglobin A1c 5.8 % (3.8-5.6)
--- NOTE | 2024-04-01 18:17 | CM.ED ---
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 in room and stated that patient has felt dizzy in the past but not to this extent. SW stayed with while patient was receiving additional testing. Emotional support provided. No further needs identified at this time. Estefani Cortez, ENVELOPE FOLDER, WET POUR SUPERVISOR
[2024-04-01] MEDS: Lactated Ringers 1,000 ML 75 ML IV (19:23)
[2024-04-01] MEDS: Atorvastatin Calcium 80 MG Tablet PO (19:53)
[2024-04-01] MEDS: Acetaminophen 500 MG Tablet 1000 MG PO (19:53)
[2024-04-01] MEDS: 0.9% Saline Lock 10 ML Syringe IV (19:54)
--- NOTE | 2024-04-02 00:10 | NURSING ---
this RN to take over care at this time.
[2024-04-02 01:05] VITALS: BMI 31.2
[2024-04-02 03:05] VITALS: BP 148/75; PULSE 79; RESP 16; TEMP 36.4; O2SAT 96
[2024-04-02 04:11] LABS: Absolute Lymphocyte Count 2.27 X10^3/uL (0.83-4.51); Absolute Neutrophil Count 3.1 X10^3/uL (2.0-7.7); Basophil# 0.02 X10^3/uL; Basophil% 0.3 % (0-1); Eosinophils% 1.6 % (0-5); Hematocrit 37.2 % (37-47); Hemoglobin 12.2 g/dL (12.0-15.0); Lymphocyte # 2.27 X10^3/ul (0.83-4.51); Lymphocyte % 37.2 % (19-41); Mean Corp Hgb Conc 32.8 g/dL (32-36); Mean Corpuscular Hgb 29.4 pg (27.0-32.0); Mean Corpuscular Volume 89.6 fL (81-99); Mean Platelet Vol. 10.6 fl (6.2-12.0); Monocyte# 0.65 X10^3/uL; Monocyte% 10.6 % (0-10); NRBC Flagged by Analyzer 0 % (0-5); Neutrophil # 3.05 X10^3/uL (2.7-7.7); Platelet Count 207 K/mm3 (150-450); RBC Distribution Width CV 12.7 % (11.6-14.6); RBC Distribution Width SD 41.7 fl (35.1-43.9); Red Blood Count 4.15 M/mm3 (4.2-5.4); White Blood Count 6.1 K/mm3 (4.4-11.0)
[2024-04-02 05:06] LABS: ALB/GLOB Ratio 1.2 RATIO (0.9-2.4); AST(SGOT) 13 U/L (15-37); Alanine Aminotransfer ALT/SGPT 23 U/L (13-56); Albumin, Serum 3.3 g/dL (3.2-5.0); Alkaline Phosphatase 59 U/L (45-117); Anion Gap 6 (5-15); BUN 14 mg/dL (7-18); BUN/Creat Ratio 16.6 RATIO (10-20); Calcium,Total 9.1 mg/dL (8.5-10.1); Chloride 108 mmol/L (98-107); Cholesterol 214 mg/dL (200); Creatinine, Serum 0.84 mg/dL (0.55-1.02); EST Glomerular Filtration Rate 70 mL/min (>60); Est Glom Filt Rate - Afr Amer 85 mL/min (>60); Estimated Creatinine Clearance 58.85 ml/min; Globulin 2.7 g/dL (2.2-4.2); Glucose 104 mg/dL (74-106); High Density Lipoprotein 64 mg/dL; Magnesium 2.2 mg/dL (1.6-2.6); Phosphorus 4.2 mg/dL (2.5-4.9); Potassium 3.8 mmol/L (3.5-5.1); Sodium Level 138 mmol/L (136-145); Triglycerides 82 mg/dL; Very Low Density Lipoprotein 16 mg/dL (5-40)
[2024-04-02] MEDS: Acetaminophen 500 MG Tablet 1000 MG PO ×2 (06:58→14:43)
[2024-04-02] MEDS: Levothyroxine 125 MCG Tablet PO (06:58)
[2024-04-02 07:00] VITALS: BP 200/94; PULSE 75; RESP 16; TEMP 36.4; O2SAT 96
[2024-04-02 07:10] VITALS: O2SAT 95
[2024-04-02 08:00] VITALS: BP 188/76; PULSE 71; RESP 16; TEMP 36.5; O2SAT 97
[2024-04-02] MEDS: Enoxaparin 40 MG/0.4 ML Syringe SC (08:23)
[2024-04-02] MEDS: Venlafaxine XR 37.5 MG Capsule PO (08:24)
[2024-04-02] MEDS: Pantoprazole Sodium 40 MG Tablet PO (08:24)
[2024-04-02] MEDS: Aspirin 81 MG TAB.CHEW PO ×2 (08:24→16:42)
--- NOTE | 2024-04-02 10:07 | PCM.PN.HOSP ---
Reason for Visit Reason for Visit: Diagnoses Cerebral infarction, unspecified (04/01/24) Acute kidney failure, unspecified (04/01/24) Dizziness and giddiness (04/01/24) Subjective Subjective Still with left eye vision changes. Objective Data Objective Data Vital Signs: Vital Signs Temp Pulse Resp BP Pulse Ox O2 Del Method 36.5 C L 71 16 188/76 H 97 Room Air 04/02/24 08:00 04/02/24 08:00 04/02/24 08:00 04/02/24 08:00 04/02/24 08:00 04/02/24 08:00 Oxygen Delivery Method Room Air Weight: 80.002 kg Body Mass Index (BMI) 31.2 Intake & Output: Intake and Output for Last 24 Hours 03/31/24 04/01/24 04/02/24 23:59 23:59 23:59 Intake Total 981.25 / 981.25 Balance 981.25 / 981.25 Lab / Micro Data 04/02/24 03:55 04/02/24 03:55 Labs: Laboratory Results - last 24 hr 04/01/24 12:30: WBC 7.1, RBC 4.55, Hgb 13.6, Hct 40.3, MCV 88.6, MCH 29.9, MCHC 33.7, RDW Std Deviation 41.3, RDW Coeff of Sharmila 12.6, Plt Count 254, MPV 10.4, Immature Gran % (Auto) 0.600, Neut % (Auto) 60.3, Lymph % (Auto) 29.5, [place] % (Auto) 8.5, Eos % (Auto) 0.8, Baso % (Auto) 0.3, Absolute Neuts (auto) 4.3, Absolute Lymphs (auto) 2.09, Nucleated RBC % 0, PT 12.7, INR 0.9, APTT 24.5, Sodium 138, Potassium 3.8, Chloride 102, Carbon Dioxide 27.0, Anion Gap 9, BUN 20 H, Creatinine 1.31 H, Estim Creat Clear Calc 38.35, Est GFR (MDRD) Af Amer 51 L, Est GFR (MDRD) Non-Af 42 L, BUN/Creatinine Ratio 15.3, Glucose 107 H, Hemoglobin A1c 5.8 H, Calcium 9.5, Troponin I High Sens 11, POC Glucose 104 04/02/24 03:55: WBC 6.1, RBC 4.15 L, Hgb 12.2, Hct 37.2, MCV 89.6, MCH 29.4, MCHC 32.8, RDW Std Deviation 41.7, RDW Coeff of Sharmila 12.7, Plt Count 207, MPV 10.6, Immature Gran % (Auto) 0.300, Neut % (Auto) 50.0, Lymph % (Auto) 37.2, [place] % (Auto) 10.6 H, Eos % (Auto) 1.6, Baso % (Auto) 0.3, Absolute Neuts (auto) 3.1, Absolute Lymphs (auto) 2.27, Nucleated RBC % 0, Sodium 138, Potassium 3.8, Chloride 108 H, Carbon Dioxide 24.0, Anion Gap 6, BUN 14, Creatinine 0.84, Estim Creat Clear Calc 58.85, Est GFR (MDRD) Af Amer 85, Est GFR (MDRD) Non-Af 70, BUN/Creatinine Ratio 16.6, Glucose 104, Calcium 9.1, Phosphorus 4.2, Magnesium 2.2, Total Bilirubin 0.50, AST 13 L, ALT 23, Alkaline Phosphatase 59, Total Protein 6.0 L, Albumin 3.3, Globulin 2.7, Albumin/Globulin Ratio 1.2, Triglycerides 82, Cholesterol 214 H, LDL Cholesterol 134 H, VLDL Cholesterol 16, HDL Cholesterol 64, TSH 6.830 H Radiography Diagnostic Testing: Radiology Impression Chest X-Ray 04/01/24 12:55 IMPRESSION: No evidence of acute cardiopulmonary disease. Negative examination. Reading Location: [id number] Brain CT 04/01/24 13:57 IMPRESSION: Findings suggestive of early ischemic change in the posterior medial aspect of the right occipital lobe. The referring physician Dr. Norman from the ER was notified. One or more dose reduction techniques were used (e.g., Automated exposure control, adjustment of the mA and/or kV according to patient size, use of iterative reconstruction technique). Reading Location: [facility] Head/Neck CTA 04/01/24 14:04 IMPRESSION: RIGHT CAROTID: Minimal plaque. LEFT CAROTID: Plaque formation causing between 50 and 60% narrowing. VERTEBRALS: Unremarkable INTRACRANIAL: No large vessel occlusion. One or more dose reduction techniques were used (e.g., Automated exposure control, adjustment of the mA and/or kV according to patient size, use of iterative reconstruction technique). Reading Location: [facility] Brain MRI 04/01/24 15:29 IMPRESSION: 1. No acute intracranial abnormality, specifically no evidence of acute/subacute ischemia. 2. Chronic small vessel ischemic changes. Reading Location: [facility] Physical Exam Const alert and no apparent distress HEENT head/scalp atraumatic and moist oral mucous membranes Cardio regular rate, regular rhythm, S1 normal heart sound and S2 normal heart sound GI normal to inspection, nondistended, normoactive bowel sounds, soft to palpation, non-tender and non-distended Extremity normal to inspection Neuro Neuro Narrative: left medial visual changes Sensorium / Orientation: awake and alert Motor Exam: strength 5/5 throughout Assessment & Plan Assessment/Plan (1) Vertigo: (2) NOAH (acute kidney injury): PLAN: Plan vertigo/presyncope visual changes. Noted on CT of the brain, however, MRI brain did not show a stroke. CTA of the head and neck shows no LVO and minimal right carotid plaque, 50 to 60% left carotid plaque and unremarkable vertebrals Echo shows an EF 60%. Not felt to be a CVA by neurology. Concerning it could be an atypical migraine and recommend follow up with opthalmology. NOAH resolved w IVF DVT prophylaxis -Subcu Lovenox 40 daily CODE STATUS -Full code Charges/Coding Visit Charges Inpatient E&M: 68674 Subs Hosp L2
[2024-04-02 11:20] VITALS: BMI 31.2
[2024-04-02 12:00] VITALS: BP 178/81; PULSE 71; RESP 14; TEMP 36.5; O2SAT 96
--- NOTE | 2024-04-02 13:09 | CHAPLAIN ---
Type of Pastoral Visit ___ Initial Visit _x__ Follow-up Visit ___ On-call Visit ___ General Patient Visit ___ Spiritual Assessment ___ Family Conference ___ Bereavement ___ Rapid Response ___ Code Blue ___ Other (describe below) Pastoral Care Referral From _x__ Patient ___ Family ___ Nurse ___ Physician ___ Kitchen Food Server ___ Senior Patient Account Representative ___ Other (describe below) Sacrament/Intervention _x__ Active listening ___ Anointing ___ Mandaeism ___ Bereavement ___ Communion ___ Rajwinder exploration ___ ___ Life review ___ Prayer ___ Reconciliation ___ Sacrament of Sick _x__ Supportive presence ___ Wedding ___ Other (describe below) Pastoral Comments follow up to this patient that was a stroke alert yesterday; spouse and daughter are also in the room at this time; pt says that she is waiting on a definitive answer to the events of yesterday; pt denies any needs or worries; offer of support to the family members as well
--- NOTE | 2024-04-02 14:16 | STROKE.CONS ---
Assessment and Plan: Stroke Assessment/Plan BARBARA LIGHT, is a 74 F w/ neurocardiogenic syncope and leaky heart valve who presents with an episode of syncope. Episode is a little unclear as patient states she doesnt remember event but describes the episodes, maybe there is a period of loss time that she isnt aware of as bystanders did act quickly to sit her down. As she remembers, she was at work, standing at the [employer] when she suddenly felt clammy, sweaty, sob and her complete vision went black, sounds became muffled but she could hear and remembers people tryign to get her to sit down and lay down. This resolved. Her prior episodes of neurocardiogenic syncope are different in which she feels them come on, feels hot and lightheaded. CTH was done which showed possible issue on her right occipital lobe. CTAs neg. MRI brain neg. She still complains of left eye monocular blurriness but no field cut. Her episode of bilateral vision loss and some predromal symptoms do not appear to be a stroke as these are atypical stroke symptoms that dont localize well to one vascular territory. Her current monocular vision issue of blurry vision also does not localize to brain and imaging neg. Her presenting episode appears to be presyncope/syncope and maybe a variation of her neurocardiogenic syncope, she does have hx of migraines and could be an atypical migraine phenomenon. Follow up with optho if left eye cont to be blurry. NO further stroke workup as my impression is NOT stroke and presyncope/syncope. Recommend TTE. f/u with pcp and provider. Please reachout for any questions or concerns. Stroke to sign off. HPI Consult Data Date of Consult: 04/02/24 HPI Narrative HPI Narrative: BARBARA LIGHT, is a 74 F w/ neurocardiogenic syncope and leaky heart valve who presents with an episode of syncope. Episode is a little unclear as patient states she doesnt remember event but describes the episodes, maybe there is a period of loss time that she isnt aware of as bystanders did act quickly to sit her down. As she remembers, she was at work, standing at the [employer] when she suddenly felt clammy, sweaty, sob and her complete vision went black, sounds became muffled but she could hear and remembers people tryign to get her to sit down and lay down. This resolved. Her prior episodes of neurocardiogenic syncope are different in which she feels them come on, feels hot and lightheaded. CTH was done which showed possible issue on her right occipital lobe. CTAs neg. MRI brain neg. She still complains of left eye monocular blurriness but no field cut. Her episode of bilateral vision loss and some predromal symptoms do not appear to be a stroke as these are atypical stroke symptoms that dont localize well to one vascular territory. Her current monocular vision issue of blurry vision also does not localize to brain and imaging neg. Her presenting episode appears to be presyncope/syncope and maybe a variation of her neurocardiogenic syncope, she does have hx of migraines and could be an atypical migraine phenomenon. Follow up with optho if left eye cont to be blurry. NO further stroke workup as my impression is NOT stroke and presyncope/syncope. Recommend TTE. f/u with pcp and provider. Please reachout for any questions or concerns. Stroke to sign off. [facility] Medical History Neurocardiogenic syncope GERD (gastroesophageal reflux disease) Primary osteoarthritis, left shoulder Left shoulder pain Wears glasses Post-menopausal History of Clostridium difficile infection Depression Anxiety History of steroid therapy Thyroid disease Rheumatoid arthritis Arthritis High cholesterol Back pain Injury of head and neck History of hiatal hernia Gastric reflux Non-smoker Shortness of breath on exertion History of pain when walking Cardiology follow-up encounter Hypertension Home Medications ?Medication ?Instructions ?Recorded ?Last Taken ?Type levomefolate 7.5 mg-algal oil 15 mg PO DAILY NERVES 07/23/13 02/24/24 History 90.314 mg capsule (Deplin (algal oil)) amlodipine 10 mg tablet 10 mg PO DAILY BP #30 tabs 03/14/17 04/01/24 Rx ergocalciferol (vitamin D2) 1,250 50,000 unit PO .2X WEEK SUPPLEMENT 05/31/23 03/31/24 History mcg (50,000 unit) capsule (Vitamin D2) ferrous sulfate 325 mg (65 mg 325 mg PO .QOD SUPPLEMENT 05/31/23 03/31/24 History iron) tablet levothyroxine 125 mcg capsule 187.5 mcg PO .mondaydaily THYROID 05/31/23 02/25/24 History levothyroxine 125 mcg tablet 125 mcg PO MOTUWETHFRSA THYROID 05/31/23 06/14/23 History losartan 25 mg tablet 25 mg PO DAILY BP 05/31/23 02/25/24 History chlorthalidone 25 mg tablet 25 mg PO QHS cholesterol 03/28/24 03/31/24 History lorazepam 0.5 mg tablet 0.5 mg PO BID PRN anxiety 03/28/24 Unknown History meclizine 25 mg tablet 25 mg PO 4X/DAY PRN dizziness 03/28/24 Unknown History pantoprazole 40 mg tablet,delayed 40 mg PO QDAY 03/28/24 04/01/24 History release venlafaxine 37.5 mg 37.5 mg PO QDAY 03/28/24 Unknown History capsule,extended release 24 hr acetaminophen 500 mg tablet 1,000 mg PO TID PRN pain 04/01/24 03/31/24 History alendronate 70 mg tablet 70 mg PO .dailysundays bone 04/01/24 03/31/24 History ascorbic acid (vitamin C) 500 mg 500 mg PO BID 04/01/24 Unknown History capsule,extended release aspirin 81 mg chewable tablet 81 mg PO DAILY 04/01/24 04/01/24 History Allergy/AdvReac Type Severity Reaction Status Date / Time albuterol Allergy Swelling Verified 04/01/24 12:28 lidocaine (From Lidoderm) Allergy Hives Verified 04/01/24 12:28 Family History Brother Kidney disease Myocardial infarction Brother CAD (coronary artery disease) Myocardial infarction Mother Hypertension Thyroid disorder Father Brain aneurysm Myocardial infarction Other Heart disease Surgical History Hx of arthroscopic knee surgery Hx of surgical procedure History of carpal tunnel surgery of right wrist Hx of tubal ligation History of laparoscopic cholecystectomy Hx of appendectomy History of hip replacement Total knee replacement status Social History (Updated 04/01/24 @ 22:[address] Chelsea Kaufman DO) household members: spouse Smoking Status: Former smoker alcohol intake: never substance use type: does not use Vital Signs Vital Signs Vital Signs: 04/01/24 14:18 04/01/24 14:24 04/01/24 14:30 Temperature Temperature Source Pulse Rate 91 78 Respiratory Rate 17 Blood Pressure 211/95 H 174/78 H Blood Pressure Mean 133 110 Blood Pressure Source Blood Pressure Position Blood Pressure Location Pulse Ox 98 94 Oxygen Delivery Method Room Air 04/01/24 15:00 04/01/24 15:26 04/01/24 15:30 Temperature 98.3 F Temperature Source Pulse Rate 78 78 78 Respiratory Rate 16 16 66 H Blood Pressure 179/76 H 179/76 H 162/69 H Blood Pressure Mean 110 110 100 Blood Pressure Source Blood Pressure Position Blood Pressure Location Pulse Ox 98 98 98 Oxygen Delivery Method 04/01/24 16:00 04/01/24 16:30 04/01/24 17:00 Temperature Temperature Source Pulse Rate 68 67 69 Respiratory Rate 16 16 Blood Pressure 188/78 H 191/78 H 180/79 H Blood Pressure Mean 114 115 112 Blood Pressure Source Blood Pressure Position Blood Pressure Location Pulse Ox 99 99 98 Oxygen Delivery Method 04/01/24 17:30 04/01/24 18:30 04/01/24 19:04 Temperature 98.0 F Temperature Source Oral Pulse Rate 69 68 68 Respiratory Rate 16 16 16 Blood Pressure 130/103 H 160/86 H 180/73 H Blood Pressure Mean 112 110 108 Blood Pressure Source Monitor Blood Pressure Position Semi-Fowlers Blood Pressure Location Left Arm Pulse Ox 98 98 98 Oxygen Delivery Method Room Air 04/01/24 20:33 04/01/24 23:25 04/01/24 23:25 Temperature 97.7 F L 97.7 F L Temperature Source Oral Oral Pulse Rate 73 73 Respiratory Rate 16 16 Blood Pressure 146/73 H 146/73 H Blood Pressure Mean 97 97 Blood Pressure Source Monitor Monitor Blood Pressure Position Supine Supine Blood Pressure Location Left Arm Left Arm Pulse Ox 98 95 95 Oxygen Delivery Method Room Air Room Air Room Air 04/02/24 03:05 04/02/24 07:00 04/02/24 07:10 Temperature 97.5 F L 97.6 F L Temperature Source Oral Oral Pulse Rate 79 75 Respiratory Rate 16 16 Blood Pressure 148/75 H 200/94 H Blood Pressure Mean 99 129 Blood Pressure Source Monitor Monitor Blood Pressure Position Supine Semi-Fowlers Blood Pressure Location Left Arm Left Arm Pulse Ox 96 96 95 Oxygen Delivery Method Room Air Room Air Room Air 04/02/24 08:00 Temperature 97.7 F L Temperature Source Oral Pulse Rate 71 Respiratory Rate 16 Blood Pressure 188/76 H Blood Pressure Mean 113 Blood Pressure Source Monitor Blood Pressure Position Semi-Fowlers Blood Pressure Location Left Forearm Pulse Ox 97 Oxygen Delivery Method Room Air Weight Weight: 80.002 kg Body Mass Index (BMI) 31.2 NIHSS NIHSS Nursing Documentation NIHSS Nursing Documentation: NIHSS: Ischemic Stroke/TIA Start: 04/01/24 18:49 Text: For PCU Patients: NIH and Neuro Check every 4 Status: Active hours, PRN and with change in RN caregiver. Freq: [id number] Protocol: Activity Type Activity Date Activity User E-sign Co-sign Detail Recorded Client Recorded Date Recorded By Document 04/02/24 08:00 MS [id number] 04/02/24 08:20 MS 04/02/24 08:00 NIH Stroke Scale [NIHSS] A score of 0 is normal or asymptomatic . Total possible score is 42. Inpatient: RN or Physician to activate a stroke alert for onset of new stroke symptoms or with NIHSS increase >/= 3 points. Following change in neurological status, NIHSS will be performed per physician order or more frequently PRN. -1a. Level of Consciousness Alert; keenly responsive -1b. LOC Questions Answers BOTH questions correctly. -1c. LOC Commands Performs both tasks correctly . -2. Best Gaze Normal -3. Visual Partial hemianopia -4. Facial Palsy Normal symmetrical movements -5a. Left Arm No drift; arm holds 90 (or 45 ) degrees for full 10 seconds -5b. Right Arm No drift; arm holds 90 (or 45 ) degrees for full 10 seconds -6a. Left Leg No drift; leg holds 30-degree position for full 5 seconds -6b. Right Leg No drift; leg holds 30-degree position for full 5 seconds -7. Limb Ataxia Absent -8. Sensory Normal; no sensory loss -9. Best Language No aphasia; normal -10. Dysarthria Normal -11. Extinction and Inattention No abnormality -Total 1 Query Text:A score of 0 is normal or asymptomatic. Total possible score is 42 . ED: Notify Physician for NIHSS increase by > / = 3 points. Inpatient: RN or Physician to activate a stroke alert for NIHSS increase of > / = 3 points. Coma Scale [Assess] -Eye Opening Spontaneous -Motor Obeys Commands -Verbal Oriented [Total] -Coma Scale Total 15 Physical Exam Narrative Physical Exam: - General: NAD, pleasant, cooperative, well nourished, well developed - Head/Eyes: Atraumatic, normocephalic, clear cornea, normal sclera/conjunctive - Neuro: ? Mental Status: AAOX4 & following simple commands. ? Speech: Clear and fluent with good repetition, comprehension, & naming. No aphasia or dysarthria ? CN II: Visual alcaraz are full to confrontation. PERRL. ? CN III, IV, : EOMI, no gaze preference, no nystagmus, no ptosis ? CN V: Facial sensation is intact to light touch throughout. ? CN VII: Face is symmetric with normal eye closure and smile. ? CN VII: Hearing is grossly normal to conversational speech. ? Motor: Able to sustain all limbs ? Sensation: Normal to light touch bilaterally. ? Coordination: Normal FTN & HTS. No abn movements seen. Lab / Micro Data 04/02/24 03:55 04/02/24 03:55 Labs: Laboratory Results - last 24 hr 04/01/24 12:30: Sodium 138, Potassium 3.8, Chloride 102, Carbon Dioxide 27.0, Anion Gap 9, BUN 20 H, Creatinine 1.31 H, Estim Creat Clear Calc 38.35, Est GFR (MDRD) Af Amer 51 L, Est GFR (MDRD) Non-Af 42 L, BUN/Creatinine Ratio 15.3, Glucose 107 H, Hemoglobin A1c 5.8 H, Calcium 9.5, Troponin I High Sens 11 04/02/24 03:55: WBC 6.1, RBC 4.15 L, Hgb 12.2, Hct 37.2, MCV 89.6, MCH 29.4, MCHC 32.8, RDW Std Deviation 41.7, RDW Coeff of Sharmila 12.7, Plt Count 207, MPV 10.6, Immature Gran % (Auto) 0.300, Neut % (Auto) 50.0, Lymph % (Auto) 37.2, [place]land % (Auto) 10.6 H, Eos % (Auto) 1.6, Baso % (Auto) 0.3, Absolute Neuts (auto) 3.1, Absolute Lymphs (auto) 2.27, Nucleated RBC % 0, Sodium 138, Potassium 3.8, Chloride 108 H, Carbon Dioxide 24.0, Anion Gap 6, BUN 14, Creatinine 0.84, Estim Creat Clear Calc 58.85, Est GFR (MDRD) Af Amer 85, Est GFR (MDRD) Non-Af 70, BUN/Creatinine Ratio 16.6, Glucose 104, Calcium 9.1, Phosphorus 4.2, Magnesium 2.2, Total Bilirubin 0.50, AST 13 L, ALT 23, Alkaline Phosphatase 59, Total Protein 6.0 L, Albumin 3.3, Globulin 2.7, Albumin/Globulin Ratio 1.2, Triglycerides 82, Cholesterol 214 H, LDL Cholesterol 134 H, VLDL Cholesterol 16, HDL Cholesterol 64, TSH 6.830 H Imaging Radiology Impression Brain CT 04/01/24 13:57 IMPRESSION: Findings suggestive of early ischemic change in the posterior medial aspect of the right occipital lobe. The referring physician Dr. Norman from the ER was notified. One or more dose reduction techniques were used (e.g., Automated exposure control, adjustment of the mA and/or kV according to patient size, use of iterative reconstruction technique). Reading Location: [facility]--1 Head/Neck CTA 04/01/24 14:04 IMPRESSION: RIGHT CAROTID: Minimal plaque. LEFT CAROTID: Plaque formation causing between 50 and 60% narrowing. VERTEBRALS: Unremarkable INTRACRANIAL: No large vessel occlusion. One or more dose reduction techniques were used (e.g., Automated exposure control, adjustment of the mA and/or kV according to patient size, use of iterative reconstruction technique). Reading Location: [facility] Brain MRI 04/01/24 15:29 IMPRESSION: 1. No acute intracranial abnormality, specifically no evidence of acute/subacute ischemia. 2. Chronic small vessel ischemic changes. Reading Location: [facility] Active Medications Active Medications Active Medications: Current Medications Generic Name Dose Route Start Last Admin Trade Name Freq PRN Reason Stop Dose Admin Acetaminophen 1,000 mg 04/01/24 22:00 04/02/24 06:58 Acetaminophen 500 Mg Tablet PO 1,000 mg TID KIYA Administration Aspirin 81 mg 04/02/24 08:00 04/02/24 08:24 Aspirin 81 Mg Tab.Chew PO 81 mg BIDCM [facility] Administration Atorvastatin Calcium 80 mg 04/01/24 22:00 04/01/24 19:53 Atorvastatin Calcium 80 Mg Tablet PO 80 mg QHS [facility] Administration Enoxaparin Sodium 40 mg 04/02/24 10:00 04/02/24 08:23 Enoxaparin 40 Mg/0.4 Ml Syringe SC 40 mg DAILY KIYA Administration Ferrous Sulfate 325 mg 04/03/24 12:00 Ferrous Sulfate 325 Mg Tablet PO QODAY@1200 [facility] Hydralazine HCl 5 mg 04/01/24 18:49 Hydralazine 20 Mg/Ml Vial IV 04/02/24 18:49 Q30M PRN maintain BP parameters with HR <60 Sodium Chloride 100 mls @ 15 mls/hr 04/01/24 19:24 IV .Q6H40M PRN Saline Flush Sodium Chloride 100 mls @ 15 mls/hr 04/01/24 19:24 IV .Q6H40M PRN Additional IVPB Infusion Labetalol HCl 10 - 20 mg 04/01/24 18:49 Labetalol 20mg/4ml Syringe IV 04/02/24 18:49 Q10M PRN PRN maintain BP parameters with HR >/=60 Levothyroxine Sodium 125 mcg 04/02/24 06:00 04/02/24 06:58 Levothyroxine 125 Mcg Tablet PO 125 mcg [id number]@0600 [facility] Administration Levothyroxine Sodium 187.5 mcg 04/06/24 06:00 Levothyroxine 125 Mcg Tablet PO SuSa@0600 [facility] Lorazepam 0.5 mg 04/01/24 18:49 Lorazepam 0.5 Mg Tablet PO BID PRN anxiety Meclizine HCl 25 mg 04/01/24 18:49 Meclizine Hcl 25 Mg Tablet PO 4X/DAY PRN dizziness Melatonin 3 mg 04/01/24 18:49 Melatonin 3 Mg Tablet PO QHS PRN PRN INSOMNIA Ondansetron HCl 4 mg 04/01/24 18:49 Ondansetron 4 Mg/2 Ml Vial IV Q8H PRN PRN NAUSEA/VOMITING Pantoprazole Sodium 40 mg 04/02/24 10:00 04/02/24 08:24 Pantoprazole Sodium 40 Mg Tablet PO 40 mg DAILY [facility] Administration Senna/Docusate Sodium 2 tablet 04/01/24 18:49 Senna/Docusate Sodium 1 Tablet PO BID PRN PRN Constipation Sodium Chloride 10 - 40 ml 04/01/24 19:24 04/01/24 19:54 0.9% Saline Lock 10 Ml Syringe IV 10 ml UD PRN Administration SALINE FLUSH Venlafaxine HCl 37.5 mg 04/02/24 10:00 04/02/24 08:24 Venlafaxine Xr 37.5 Mg Capsule PO 37.5 mg DAILY KIYA Administration
[2024-04-02] MEDS: 0.9% Saline Lock 10 ML Syringe IV ×2 (14:43→16:42)
--- NOTE | 2024-04-02 15:50 | CASEMGMT ---
SW did not complete a PHQ 9 as per physician patient did not have a Stroke. Lucina STAUFFER
--- NOTE | 2024-04-02 16:18 | PCM.DC.SUM ---
Providers Date of Admission: 04/01/24 Primary Care Physician: REBECCA Wallace Consultations 04/01/24 18:49 Consult: Tele-Neurology Routine Consulting Provider: [facility] Reason for Consult: Acute Ischemic Stroke/TIA EMERGENT Consult: No MD Notified: Yes Date Notified: 04/01/24 Time Notified: 21:15 Method of Notification: [facility]sw[facility] Service Nursing Unit Staff Notify [facility] of Tele-Neurology Consult: Yes Reason For Visit: OCCIPITAL STROKE Diagnosis Discharge Diagnosis (1) Vertigo: Status: Acute Code(s): R42 - Dizziness and giddiness (2) NOAH (acute kidney injury): Status: Acute Code(s): N17.9 - Acute kidney failure, unspecified Plan vertigo/presyncope visual changes. Noted on CT of the brain, however, MRI brain did not show a stroke. CTA of the head and neck shows no LVO and minimal right carotid plaque, 50 to 60% left carotid plaque and unremarkable vertebrals Echo shows an EF 60%. Not felt to be a CVA by neurology. Concerning it could be an atypical migraine and recommend follow up with opthalmology. NOAH resolved w IVF Migraine patient states that she has migraines 3 to 7 days. Offered to give treatment to see if we can break the migraine. She would prefer to go home. That she may be having symptoms regards revision due to migraines that she is currently having. Rooming House Keeper give her a dose of dexamethasone which she was agreeable to but like to go home. Think that is reasonable I do recommend that she follow-up with neurology to see what abortive treatments that she may be eligible for. Syncope Chronic and sees cardiology. She has a follow-up appointment in the coming months to be evaluated. DVT prophylaxis -Subcu Lovenox 40 daily CODE STATUS -Full code Medications at Discharge Home Medications levomefolate 7.5 mg-algal oil 90.314 mg capsule (Deplin (algal oil)) 15 mg PO DAILY NERVES 07/23/13 amlodipine 10 mg tablet 10 mg PO DAILY BP #30 tabs 03/14/17 ergocalciferol (vitamin D2) 1,250 mcg (50,000 unit) capsule (Vitamin D2) 50,000 unit PO .2X WEEK SUPPLEMENT 05/31/23 ferrous sulfate 325 mg (65 mg iron) tablet 325 mg PO .QOD SUPPLEMENT 05/31/23 levothyroxine 125 mcg capsule 187.5 mcg PO .mondaydadontrell THYROID 05/31/23 levothyroxine 125 mcg tablet 125 mcg PO MOTUWETHFRSA THYROID 05/31/23 losartan 25 mg tablet 25 mg PO DAILY BP 05/31/23 chlorthalidone 25 mg tablet 25 mg PO QHS cholesterol 03/28/24 lorazepam 0.5 mg tablet 0.5 mg PO BID PRN anxiety 03/28/24 meclizine 25 mg tablet 25 mg PO 4X/DAY PRN dizziness 03/28/24 pantoprazole 40 mg tablet,delayed release 40 mg PO QDAY 03/28/24 venlafaxine 37.5 mg capsule,extended release 24 hr 37.5 mg PO QDAY 03/28/24 acetaminophen 500 mg tablet 1,000 mg PO TID PRN pain 04/01/24 alendronate 70 mg tablet 70 mg PO .dailysundays bone 04/01/24 ascorbic acid (vitamin C) 500 mg capsule,extended release 500 mg PO BID 04/01/24 aspirin 81 mg chewable tablet 81 mg PO DAILY 04/01/24 Hospital Course Operations None Procedures 2-D Echocardiogram Summary of Care Provided Minutes Spent on Discharge: 35 Hospital Course: Patient presents with syncope and left visual field deficit. CAT scan showed a right occipital stroke but MRI did not show that. Patient was seen by neurology who did not feel that she did have a stroke but this may be more related with her having chronic migraines. Patient said that she has chronic migraines 3 out of 7 days/week. I did recommend that she follow-up with neurology and give her a dose of 10 g of IV dexamethasone prior to discharge. Weight / BMI Weight Weight: 80.002 kg Body Mass Index (BMI) 31.2 ABG / Lab / Microbiology Data 04/02/24 03:55 04/02/24 03:55 Laboratory: Laboratory Results - last 24 hr 04/01/24 12:30: Hemoglobin A1c 5.8 H 04/02/24 03:55: WBC 6.1, RBC 4.15 L, Hgb 12.2, Hct 37.2, MCV 89.6, MCH 29.4, MCHC 32.8, RDW Std Deviation 41.7, RDW Coeff of Sharmila 12.7, Plt Count 207, MPV 10.6, Immature Gran % (Auto) 0.300, Neut % (Auto) 50.0, Lymph % (Auto) 37.2, Garfield % (Auto) 10.6 H, Eos % (Auto) 1.6, Baso % (Auto) 0.3, Absolute Neuts (auto) 3.1, Absolute Lymphs (auto) 2.27, Nucleated RBC % 0, Sodium 138, Potassium 3.8, Chloride 108 H, Carbon Dioxide 24.0, Anion Gap 6, BUN 14, Creatinine 0.84, Estim Creat Clear Calc 58.85, Est GFR (MDRD) Af Amer 85, Est GFR (MDRD) Non-Af 70, BUN/Creatinine Ratio 16.6, Glucose 104, Calcium 9.1, Phosphorus 4.2, Magnesium 2.2, Total Bilirubin 0.50, AST 13 L, ALT 23, Alkaline Phosphatase 59, Total Protein 6.0 L, Albumin 3.3, Globulin 2.7, Albumin/Globulin Ratio 1.2, Triglycerides 82, Cholesterol 214 H, LDL Cholesterol 134 H, VLDL Cholesterol 16, HDL Cholesterol 64, TSH 6.830 H Radiography Diagnostic Testing: Radiology Impression Brain MRI 04/01/24 15:29 IMPRESSION: 1. No acute intracranial abnormality, specifically no evidence of acute/subacute ischemia. 2. Chronic small vessel ischemic changes. Reading Location: [facility] Echocardiogram 04/01/24 15:29 Interpretation Summary The estimated ejection fraction is 60 %. No evidence for diastolic dysfunction. Trivial mitral valve insufficiency. Ordering Physician: Chelsea Kaufman Referring Physician: Mayra Escobedo Performed By: Ivy Leal, ANTOLIN, RVT D/C Instructions Discharge Diet: No restrictions DC O2, CPAP, BIPAP Needs Home O2 Discharge instructions: No Meaningful Use Info Meaningful Use Meaningful Use Diagnoses (Choose all that apply): None applicable Ischemic Stroke Statin Dosing Therapy Reference: STATIN DOSE THERAPY REFERENCE: * Patients > 75 years receive moderate or high dose statin therapy. * Patients 75 years or YOUNGER should receive HIGH intensity statin dose unless contraindicated. You will be required to document reason for non-treatment if statin daily dose does not meet guidelines. HIGH DOSE STATIN THERAPY DAILY Atorvastatin > than or = to 40 mg Rosuvastatin > than or = to 20 mg Amlodipine + Atorvastatin > than or = to 2.5/40 mg Ezetimibe + Simvastatin 10/80 mg Simvastatin 80mg Discharge Plan Admission Admit Date/Time: 04/01/24 15:23 Primary Reason for Your Visit: Syncope Attending Provider: Moreno Moody Primary Care Provider: Mayra Escobedo Consulting Providers: Dash Bragg; Ce Hanson; Sejal Andrade; Leticia Mejia; Maria R Patrick; Jabari Pearce; Luli Barger; Jayro Mcgill; Rory Fierro; Charles Mims; Natalie Becker; Garry Partida; Giovana Contreras; Karina Gimenez; Johnna Siegel Sandor; Tariq Patel; Bhavya Tanner; Ji Reeves; Mayra Kaufman; Tristan Espinoza; Chelsea Kaufman Instructions Additional Instructions / Restrictions: You had syncope. This been a chronic problem for you and you are good to be followed with cardiology in the near future. You do have some left visual field deficit which is ongoing. Does not appear to be a stroke according to the neurologist. This could be a migraine so it is recommend that you do follow-up with neurology as outpatient. Additionally follow-up with ophthalmology. Additional Outpatient neurology: [facility] [phone]. [facility] [place] [phone]. [facility] [place] [phone]. [facility] [phone]. [facility] [place] [phone] Discharge Orders/Prescriptions Prescriptions: Continued meclizine 25 mg tablet 25 mg PO 4X/DAY PRN (Reason: dizziness) venlafaxine 37.5 mg capsule,extended release 24hr 37.5 mg PO QDAY Patient Comments: per pt no longer taking pantoprazole 40 mg tablet,delayed release (DR/EC) 40 mg PO QDAY chlorthalidone 25 mg tablet 25 mg PO QHS lorazepam 0.5 mg tablet 0.5 mg PO BID PRN (Reason: anxiety) Patient Comments: [NO ORIGINAL SIG] Deplin (algal oil) 7.5 MG tablet 15 mg PO DAILY Patient Comments: per pt no longer taking losartan 25 mg tablet 25 mg PO DAILY Patient Comments: per pt no longer taking ergocalciferol (vitamin D2) [Vitamin D2] 1,250 mcg (50,000 unit) capsule 50,000 unit PO .2X WEEK Patient Comments: TAKE 1 CAPSULE BY MOUTH TWICE WEEKLY levothyroxine 125 mcg capsule 187.5 mcg PO . Patient Comments: MONDAY 1 1/2 TABLETS, MOTUWETHFRSA 1 TAB ferrous sulfate 325 MG tablet 325 mg PO .QOD Patient Comments: IRON SUPPLEMENT levothyroxine 125 MCG tablet 125 mcg PO MOTUWETH Patient Comments: FOR HYPOTHYROIDISM Monday 1/2 TABLETS, MOTUWETHFRSA 1 TAB alendronate 70 mg tablet 70 mg PO .dailysund Patient Comments: per pt takes 1xweek on sundays ascorbic acid (vitamin C) 500 mg capsule, extended release 500 mg PO BID acetaminophen 500 mg Tablet 1,000 mg PO TID PRN (Reason: pain) Rx Instructions: Do not take more than 3000 mg Tylenol in a 24-hour period. aspirin 81 mg Tablet,Chewable 81 mg PO DAILY Rx Instructions: Take 81 mg aspirin twice daily for 4 weeks postoperatively for DVT prophylaxis. amlodipine 10 MG tablet 10 mg PO DAILY Qty: 30 11RF Patient Comments: LOWERS BLOOD PRESSURE Referrals / Follow Up: [facility] [Outside] - Within 2 Weeks Antoine Aparicio MD [Non-Staff -Ordering Privileges] - Within 1 Month Mayra Escobedo NP-C [Primary Care Provider] - Within 2 Weeks Disposition Disposition (needs filled in before D/C Order can be placed): Home, Self Care Charges/Coding Visit Charges Inpatient E&M: 69165 Disch Hosp >30min
[2024-04-02] MEDS: dexAMETHasone 10 MG/ML Vial IV (16:42)
--- NOTE | 2024-04-02 16:47 | CASEMGMT ---
MICHELLE CM into pt room, pt lying in bed with nurse at bedside. Provided pt with outpt therapy rx for vestibular therapy and given pamphlet on [facility] and Vestibular therapy. Pt denies need for this. She is agreeable to take the rx and information and will schedule an appt if she changes her mind. Pt states that she wants to know what happened. Nurse is sorting this out for pt. Pt denies further needs at this time.
== END 2024-04-02 17:35 | disposition home or self-care (01) ==
LOC: ED 15:01 → PCU 17:47
PROVIDERS: Admitting Provider Internal Medicine; Emergency Provider Emergency Medicine; PCP Nurse Practitioner Family
DX: R55 Syncope and collapse (principal); M06.9 Rheumatoid arthritis, unspecified; I63.232 Cerebral infarction due to unspecified occlusion or stenosis of left carotid arteries; Z68.41 Body mass index [BMI] 40.0-44.9, adult; R42 Dizziness and giddiness; N17.9 Acute kidney failure, unspecified; I10 Essential (primary) hypertension; H53.40 Unspecified visual field defects; K21.9 Gastro-esophageal reflux disease without esophagitis; Z79.890 Hormone replacement therapy; Z87.891 Personal history of nicotine dependence; Z79.82 Long term (current) use of aspirin; R73.9 Hyperglycemia, unspecified; E78.00 Pure hypercholesterolemia, unspecified; Z79.899 Other long term (current) drug therapy; E03.9 Hypothyroidism, unspecified; E55.9 Vitamin D deficiency, unspecified; M19.90 Unspecified osteoarthritis, unspecified site; E66.9 Obesity, unspecified; M81.0 Age-related osteoporosis without current pathological fracture; G43.709 Chronic migraine without aura, not intractable, without status migrainosus
CPT/HCPCS: 36415; 70450; 70496; 70498; 70551; 71045; 80048; 80053; 80061; 82962; 83036; 83735; 84100; 84443; 84484; 85025; 85610; 85730; 92610; 93005; 93306; 94762; 96361; 96372; 96374; 96376; 97162; 97166; 97802; 99221; 99285; Q9967; A4216; G0378

== ENCOUNTER → 2024-06-11 | Outpatient (CLI) | payer OTHER, SELFPAY | END | disposition home or self-care (01) | LOC: LAB 06:00 | PROVIDERS: PCP Nurse Practitioner Family; Referring Provider Nurse Practitioner Family; Visit Provider Nurse Practitioner Family | DX: E03.9 Hypothyroidism, unspecified (principal) | CPT/HCPCS: 36415; 84443 ==

== ENCOUNTER → 2024-07-02 | Outpatient (CLI) | payer OTHER, SELFPAY ==
[2024-07-02 15:21] LABS: Vitamin D,25 Hydroxy 26.3 ng/mL (30-100)
== END | disposition home or self-care (01) ==
LOC: LAB 11:17
PROVIDERS: PCP Nurse Practitioner Family; Referring Provider Nurse Practitioner Family; Visit Provider Nurse Practitioner Family
DX: E55.9 Vitamin D deficiency, unspecified (principal)
CPT/HCPCS: 36415; 82306

== ENCOUNTER → 2024-08-20 | Outpatient (CLI) | payer OTHER, SELFPAY ==
--- OUTSIDE RECORDS SUMMARY | 2024-08-20 06:34 | XMS RPT_ITS | CCD ---
Author Organization [facility] Care Team Providers Care Critical Care Transport Nurse Name Role Phone Leatha Morrison Unavailable Solitario Caro Unavailable Nidia Mark Unavailable Kristyn Leblanc F Unavailable Raben, Emmett Unavailable Unavailable Lexx Persaud Unavailable Jose Miguel Bahena Unavailable Jose Miguel Trevizo Unavailable [phone] Melissa Arnett Unavailable Signs, Silvia J Unavailable Isis Phoenix Unavailable Unavailable Crystal Painter Unavailable Unavailable Mer Solorio Unavailable Unavailable Slarb, Radha Unavailable Unavailable Unavailable Unavailable Leatha Morrison Unavailable Solitario Caro Unavailable Nidia Mark Unavailable Kristyn Leblanc F Unavailable Raben, [place] Unavailable Unavailable Hayes Lexx Unavailable Jose Miguel Bahena Unavailable Jose Miguel Trevizo Unavailable Melissa Arnett M Unavailable Signs, Silvia J Unavailable Brennon Ramirez Unavailable Isis Phoenix Unavailable Unavailable Nick Barrow Unavailable Unavailable Crystal Painter Unavailable Unavailable Slarb, Radha Unavailable Unavailable Unavailable Unavailable Nidia Mark Unavailable Gravius, Briana Unavailable Unavailable Bonnie Liu Unavailable Unavailable Nick Barrow Unavailable Unavailable Erin Johnson Unavailable Unavailable Gravius, Briana Unavailable Unavailable Unavailable Unavailable OsminJhonnylupis Smart Unavailable Unavailable Nick Kumar Unavailable Unavailable Ciesa LOIN TRIMMER, Edilia Unavailable Gordo SCHULZ, Solitario Unavailable Nidia Mark Unavailable Benji SCHULZ, Kristyn Huber Unavailable Emmett Maloney Unavailable Unavailable Lexx Persaud Unavailable Jose Miguel Bahena Unavailable Jose Miguel Trevizo Unavailable [phone] Hope SCHULZ, Melissa Tadeo Unavailable Shari SCHULZ, Silvia Almonte Unavailable Brennon Ramirez Unavailable Dr. Michael Mandujano Unavailable Misael SCHULZ, Andrew Valle Unavailable Isis Phoenix Unavailable Unavailable Amado ASSISTANT ART DIRECTOR, Yuki Unavailable Unavailable José ASSISTANT ART DIRECTOR, Nick Unavailable Unavailable Slarb ASSISTANT ART DIRECTOR, Radha Unavailable Unavailable Gravius CYTOGENETICS LABORATORY MANAGER, Briana Unavailable Unavailable Unavailable Unavailable Dhruv ASSISTANT ART DIRECTOR, RACHEL Unavailable Unavailable Hope SCHULZ, Melissa Tadeo Unavailable Tori Anthony Unavailable Unavailable Tori Anthony Unavailable Unavailable Ciesa, Leatha Unavailable Gregg RAPP, Mayra Unavailable Gregg RAPP, Mayra Unavailable Ciesa, Leatha Unavailable Mayra Escobedo CNP Attending Unavailable Mayra Escobedo CNP Referring Unavailable Mayra Escobedo CNP Consulting Unavailable Friend, Dr. Hercules Unavailable Machelle ASSISTANT ART DIRECTOR, Devyn Unavailable Unavailable Vicente Gera Unavailable Unavailable Gregg HAMayra Hoover Primary Care Provider Gregg ELECTRICAL PROSPECTOR-C, Mayra Referring Provider Chapo Yates MD Attending Provider Chapo Yates MD Referring Provider Emerson SCHULZ, Dr. Rhodes Emergency Provider Mandeep SANCHEZ, Dr. Tran Admit Provider Mandeep SANCHEZ, Dr. Tran Other Provider Dash Bragg MD Other Provider Unavailable Valentin SCHULZ, Dr. Encinas Other Provider [phone] Lupe SCHULZ, Sejal Other Provider Unavailable Dr. Leticia Mejia DO Other Provider Darnell SHCULZ, Dr. Heck Other Provider [phone] Portia SCHULZ, Dr. Barboza Other Provider Charbel SCHULZ, Dr. Rockwell Other Provider [phone] Artem SCHULZ, Dr. Dial Other Provider [phone] Vadim SCHULZ, Dr. Valadez Other Provider Prasanna SCHULZ, Dr. Soto Other Provider Natalie Becker MD Other Provider Helga SCHULZ, Dr. Castañeda Other Provider Ben SCHULZ, Dr. Akhtar Other Provider Pernell SCHULZ, Dr. Collins Other Provider Dr. Johnna Siegel MD Other Provider Jorge SCHULZ, Dr. Potter Other Provider Ciro SCHULZ, Dr. Latif Other Provider Leandro SCHULZ, Dr. Workman Other Provider Mandeep SCUHLZ, Dr. Nunez Other Provider Unavailable Olga SCHULZ, Yousef Other Provider Unavailable Dr. Moreno Moody DO Attending Provider Jessica SCHULZ, Dr. Wisdom Attending Provider Dr. Moreno Moody DO Other Provider [phone] Jose Miguel Eng MD Attending Provider Gregg ELECTRICAL PROSPECTOR-C, Mayra Attending Provider Gregg ELECTRICAL PROSPECTOR-C, Mayra Primary Care Provider Chapo Yates MD Attending Provider Gregg ELECTRICAL PROSPECTOR-C, Mayra Referring Provider Assessment, Health Risk Referring Unavaila ble Gregg, Mayra Primary Care Unavailable Assessment, Health Risk Attending Unavaila ble Gregg, Mayra Attending Unavailable Gregg, Mayra Primary Care Unavailable Gregg, Mayra Primary Care Unavailable Artis Lopez Attending Unavailjoy e Gregg, Mayra Primary Care Unavailable Gregory Aponte Referring Unavailable Gregory Aponte Attending Unavailable Gergg, Mayra Referring Unavailable GreggTrishyn Attending Unavailable Gregg, Mayra Primary Care Unavailable Levi Martin Referring Unavailable Gregg, Mayra Primary Care Unavailable Levi Martin Attending Unavailable Alanna Nieto Referring Unavailable Gregg, Mayra Primary Care Unavailable Alanna Nieto Attending Unavailable Dash Bragg Consulting Unavailable Gregg, Mayra Primary Care Unavailable Chelsea Kaufman Attending Unavailable Chelsea Kaufman Admitting Unavailable Adeli, Amir Consulting Unavailable Hinduja, Sejal Consulting Unavailable Roberto Leticia Consulting Unavailable Zha, Maria R Consulting Unavailable Portia, Jabari Consulting Unavailable Her Charbela Consulting Unavailable Jayro Mcgill Consulting Unavailable Rory Fierro Consulting Unavailable Charles Mims Consulting Unavailable Natalie Becker Consulting Unavailable Layo Partida Consulting Unavailable Giovana Contreras Consulting Unavailable Karina Gimenez Consulting Unavailable Johnna Siegel Consulting UnavailTariq Rothman Consulting Unavailable Bhavya Tanner Consulting Unavailable Ji Reeves Consulting Unavailable Mayra Kaufman Consulting Unavailable Tristan Espinoza Consulting Unavailable Chelsea Kaufman Consulting Unavailable Marya Escobedo Attending Unavailable Gregg, Mayra Primary Care Unavailable Gregg, Mayra Referring Unavailable Gregg, Mayra Primary Care Unavailable Gregg Mayra Attending Unavailable Gregg, Mayra Referring Unavailable Moreno Moody Attending Unavailable Moreno Moody Consulting Unavailable Gregg, Mayra Primary Care Unavailable Milan, Chapo Attending Unavailable Gregg, Mayra Referring Unavailable Jose Miguel Eng Attending Unavailable Gregg, Mayra Primary Care Unavailable Gregg, Mayra Referring Unavailable Mollison, Chapo Attending Unavailable Gregg, Mayra Primary Care Unavailable Gregg, Mayra Referring Unavailable Mollison, Chapo Referring Unavailable Mollison, Chapo Attending Unavailable Gregg, Mayra Primary Care Unavailable Gregg, Mayra Referring Unavailable Gregg, Mayra Attending Unavailable Gregg, Mayra Primary Care Unavailable Brennon Ramirez Referring Unavailable JamesBrennon majano Attending Unavailable Gregg, Mayra Primary Care Unavailable Gregg, Mayra Attending Unavailable Gregg, Mayra Primary Care Unavailable Gregg, Mayra Referring Unavailable Gregg, Mayra Primary Care Unavailable Dash Bragg Consulting Unavailable Moreno Moody Attending Unavailable Chelsea Kaufman Admitting Unavailable Ce Hanson Consulting Unavailable HindSejal wiggins Consulting Unavailable Leticia Mejia Consulting Unavailable Maria R Patrick Consulting Unavailable Jabari Pearce Consulting Unavailable Luli Barger Consulting Unavailable Jayro Mcgill Consulting Unavailable Rory Fierro Consulting Unavailable Charles Mims Consulting Unavailable Natalie Becker Consulting Unavailable Layo Partida Consulting Unavailable Giovana Contreras Consulting Unavailable Karina Gimenez Consulting Unavailable Johnna Siegel Consulting UnavailTariq Rothman Consulting Unavailable Bhavya Tanner Consulting Unavailable Ji Reeves Consulting Unavailable Mayra Kaufman Consulting Unavailable Tristan Espinoza Consulting Unavailable Chelsea Kaufman Consulting Unavailable Gregg, Mayar Attending Unavailable Gregg, Mayra Primary Care Unavailable Gregg, Mayra Referring Unavailable Allergies Allergy Classification Reported Allergen(s) Allergy Type Date of Onset Reaction(s) Facility (20 sources) Albuterol *ANTIASTHMATIC AND BRONCHODILATOR AGENTS*; Translations: [Albuterol *ANTIASTHMATIC AND BRONCHODILATOR AGENTS*] drug allergy [facility] Work Phone: Comment on above: tongue swelling and mouth breaks out (1 source) allergy to substance [facility] Work Phone: (1 source) allergy to substance [facility] Work Phone: (13 sources) LIDODERM PATCHES; Translations: [LIDODERM PATCHES] allergy to substance [facility] Work Phone: (20 sources) Ibuprofen; Translations: [Ibuprofen *ANALGESICS - ANTI-INFLAMMATORY* ] Drug Allergy [facility]; [facility] Work Phone: (1 source) Allergy to substance (finding) [facility]; [facility] Work Phone: (1 source) Allergy to substance (finding) [facility]; [facility] Work Phone: (1 source) Allergy to substance (finding) [facility]; [facility] Work Phone: (1 source) Allergy to substance (finding) [facility]; [facility] Work Phone: (14 sources) Albuterol; Translations: [albuterol] Drug Allergy 10-11-19 Swelling [facility] Work Phone: (11 sources) Lidocaine Drug Allergy 10-11-19 21 [facility] (1 source) Allergy to substance (finding) [facility]; [facility] Work Phone: (1 source) Allergy to substance (finding) [facility]; [facility] Work Phone: (20 sources) Lisinopril; Translations: [Lisinopril *ANTIHYPERTENSIVES *] Drug Allergy Nausea [facility]; [facility] Work Phone: (1 source) Allergy to substance (finding) [facility]; [facility] Work Phone: (1 source) Allergy to drug (finding) [facility]; [facility] Work Phone: (1 source) Allergy to substance (finding) [facility]; [facility] Work Phone: (1 source) Allergy to drug (finding) [facility]; [facility] Work Phone: (1 source) Allergy to substance (finding) [facility]; [facility] Work Phone: (1 source) Allergy to drug (finding) [facility]; [facility] Work Phone: (1 source) Allergy to substance (finding) [facility]; [facility] Work Phone: (1 source) Allergy to drug (finding) [facility]; [facility] Work Phone: (1 source) Allergy to substance (finding) [facility]; [facility] Work Phone: (1 source) Allergy to drug (finding) [facility]; [facility] Work Phone: (1 source) Allergy to substance (finding) [facility]; [facility] Work Phone: (1 source) Allergy to drug (finding) [facility]; [facility] Work Phone: (1 source) Allergy to substance (finding) [facility]; [facility] Work Phone: (1 source) Allergy to drug (finding) [facility]; [facility] Work Phone: (1 source) Allergy to substance (finding) [facility]; [facility] Work Phone: (1 source) Allergy to drug (finding) [facility]; [facility] Work Phone: (1 source) Allergy to substance (finding) [facility]; [facility] Work Phone: (1 source) Allergy to drug (finding) [facility]; [facility] Work Phone: (1 source) Allergy to substance (finding) [facility]; [facility] Work Phone: (1 source) Allergy to drug (finding) [facility]; [facility] Work Phone: (1 source) Allergy to substance (finding) [facility]; [facility] Work Phone: (1 source) Allergy to drug (finding) [facility]; [facility] Work Phone: (1 source) Allergy to substance (finding) [facility]; [facility] Work Phone: (1 source) Allergy to drug (finding) [facility]; [facility] Work Phone: (1 source) Allergy to substance (finding) [facility]; [facility] Work Phone: (1 source) Allergy to drug (finding) [facility]; [facility] Work Phone: (1 source) Allergy to substance (finding) [facility]; [facility] Work Phone: (1 source) Allergy to drug (finding) [facility]; [facility] Work Phone: (1 source) Allergy to substance (finding) [facility]; [facility] Work Phone: (1 source) Allergy to drug (finding) [facility]; [facility] Work Phone: (1 source) Allergy to substance (finding) [facility]; [facility] Work Phone: (1 source) Allergy to drug (finding) [facility]; [facility] Work Phone: (1 source) Allergy to substance (finding) [facility]; [facility] Work Phone: (1 source) Allergy to drug (finding) [facility]; [facility] Work Phone: (1 source) Allergy to substance (finding) [facility]; [facility] Work Phone: (1 source) Allergy to drug (finding) [facility]; [facility] Work Phone: (1 source) Allergy to substance (finding) [facility]; [facility] Work Phone: (1 source) Allergy to drug (finding) [facility]; [facility] Work Phone: (1 source) Allergy to substance (finding) [facility]; [facility] Work Phone: (1 source) Allergy to drug (finding) [facility]; [facility] Work Phone: (1 source) Allergy to substance (finding) [facility]; [facility] Work Phone: (1 source) Allergy to drug (finding) [facility]; [facility] Work Phone: (1 source) Allergy to substance (finding) [facility]; [facility] Work Phone: (1 source) Allergy to drug (finding) [facility]; [facility] Work Phone: (1 source) Allergy to substance (finding) [facility]; [facility] Work Phone: (1 source) Lidocaine Drug Allergy 04-27-19 [facility] Medications Current Medications Medication Drug Class(es) Dates Sig (Normalized) Sig (Original) acetaminophen 500 mg oral tablet (5 sources) Start: 06-15-2023 End: 04-01-2024 Acetaminophen 500 mg Tablet Active 1000 mg PO THREE TIMES A DAY as needed for pain April 01, 2024 1:00am Do not take more than 3000 mg Tylenol in a 24-hour period. Start: 06-15-2023 take 3000 mg by mout h three times daily Acetaminophen Active 1000 MG PO THREE TIMES A DAY 0 June 15, 2023 12:00am Do not take more than 3000 mg Tylenol in a 24-hour period. alendronic acid 70 mg oral tablet (4 sources) Bisphosphonate Start: 04-01-2024 End: 04-26-2024 take 1 tablet by mouth every week Alendronate 70 mg tablet Active 70 mg PO EVERY WEEK April 26, 2024 4:30pm aspirin 81 mg chewable tablet (20 sources) Platelet Aggregation Inhibitor, Nonsteroidal Anti-inflammatory Drug Start: 06-15-2023 End: 04-01-2024 take 1 tablet by mouth twice daily Aspirin 81 mg Tablet,Chewable Active 81 mg PO DAILY April 01, 2024 1:00am Take 81 mg aspirin twice daily for 4 weeks postoperatively for DVT prophylaxis. Start: 07-23-2013 End: 05-31-2023 take 1 tablet by mouth once daily Aspirin 81 MG tablet Discontinued 81 mg PO DAILY@0800 July 23, 2013 12:00am May 31, 2023 11:04am Start: 03-12-2013 End: 03-27-2013 take 1 tablet by mouth once daily Aspirin 81 MG tablet Discontinued 81 mg PO DAILY@0800 March 12, 2013 1:00am March 27, 2013 1:40pm Start: 07-23-2008 take 1 tablet by reji th once daily ASPIRIN 81 MG TABS One tablet by mouth daily ASPIRIN [id number] Kristyn Leblanc MD take 1 tablet by reji th twice daily ASPIRIN EC 325 MG TBEC One tablet by mouth twice daily ASPIRIN [id number] Vicky Arevalo LPN carvedilol 12.5 mg oral tablet (2 sources) alpha-Adrenergic Marina, beta-Adrenergic Marina Start: 04-26-2024 take 1 tablet by mouth twice daily at mealtime Carvedilol (Coreg) 12.5 mg tablet Active 12.5 mg PO TWICE A DAY 60 April 26, 2024 1:00am must administer with a meal/food ergocalciferol 1.25 mg oral capsule (20 sources) Provitamin D2 Compound Start: 05-31-2023 Ergocalciferol (Vitamin D2) (Vitamin D2) 1,250 mcg (50,000 unit) capsule Active 36282 U PO .2X WEEK May 31, 2023 12:00am Start: 12-14-2021 Start: 11-18-2020 Start: 09-23-2019 take 1 capsule by [facility] two times weekly Ergocalciferol 1.25 MG (81021 UT) Oral Capsule 1 Capsule twice weekly for 30 days Quantity: 8 {Capsule} Refills: 3 Ordered: 23-Sep-2019 Leatha Morrison CNP, CNP, Mary E Start : 23-Sep-2019 Active Start: 11-15-2017 take 1 capsule by [facility] two times weekly Ergocalciferol 15072 UNIT Oral Capsule 1 Capsule twice weekly for 30 days Quantity: 8 {Capsule} Refills: 3 Ordered: 15-Nov-2017 Leatha Morrison CNP, CNP, Mary E Start : 15-Nov-2017 Active End: 11-26-2012 take 1 capsule by mouth two times weekly ERGOCALCIFEROL 16023 UNIT CAPS 1 po twice weekly ERGOCALCIFEROL [id number] Vicky Arevalo LPN ferrous sulfate 325 mg oral tablet (20 sources) Start: 05-31-2023 take 1 tablet by mouth every other day Ferrous Sulfate 325 MG tablet Active 325 mg PO .QOD May 31, 2023 12:00am Start: 11-05-2014 take 1 tablet by reji th once daily FERROUS SULFATE 325 (65 Fe) MG TABS One tablet by mouth daily FERROUS SULFATE [id number] Kristyn Leblanc MD Start: 05-09-2013 End: 05-31-2023 take 1 tablet by mouth twice daily at mealtime Ferrous Sulfate 325 MG tablet Discontinued 325 mg PO TWICE DAILY WITH MEALS 60 June 13, 2013 12:00am May 31, 2023 11:12am take 1 tablet by reji twice daily FERROUS SULFATE, 325 (65 Fe)MG (Oral Tablet Delayed Release) 1 bid (325 (65 Fe) MG) Inactive Levomefolate-Algal Oil (Depl in) 7.5 MG tablet (8 sources) Start: 07-23-2013 Levomefolate-A lgal Oil (Deplin) 7.5 MG tablet Active 15 MG PO DAILY July 23, 2013 1:27pm Start: 07-23-2013 Levomefolate-A lgal Oil (Deplin) 7.5 MG tablet Active 15 MG PO DAILY July 22, 2013 11:00pm Start: 07-23-2013 Levomefolate-A lgal Oil (Deplin) 7.5 MG tablet Active 15 MG PO DAILY July 23, 2013 12:00am LORazepam 0.5 mg oral tablet (2 sources) Benzodiazepine Start: 03-28-2024 take 1 tablet by mouth twice daily as needed for anxiety Lorazepam 0.5 mg tablet Active 0.5 mg PO TWICE A DAY as needed for anxiety March 28, 2024 1:00am losartan potassium 25 mg oral tablet (12 sources) Angiotensin 2 Receptor Marina Start: 04-26-2024 Losartan 25 mg tablet Active 25 mg PO DAILY April 26, 2024 4:34pm take 2 tablets in the morning and 1 at night Start: 05-31-2023 End: 04-26-2024 take 1 tablet by mouth once daily Losartan 25 mg tablet Discontinued 25 mg PO DAILY May 31, 2023 12:00am April 26, 2024 4:35pm Start: 12-14-2022 meclizine hydrochloride 25 mg oral tablet (20 sources) Antiemetic Start: 03-28-2024 take 1 tablet by mouth four times daily as needed for dizziness Meclizine 25 mg tablet Active 25 mg PO 4 TIMES DAILY as needed for dizziness March 28, 2024 1:00am Start: 08-26-2013 End: 11-12-2013 End: 11-05-2014 take 4 tablets by mouth once daily as needed MECLIZINE HCL 25 MG TABS po 4 x q day prn MECLIZINE HCL [id number] Vicky Arevalo ASSISTANT ART DIRECTOR pantoprazole 40 mg delayed release oral tablet (13 sources) Proton Pump Inhibitor Start: 03-28-2024 take 1 tablet by mouth once daily Pantoprazole 40 mg tablet,delayed release (DR/EC) Active 40 mg PO daily March 28, 2024 1:00am Start: 10-31-2022 Completed/Discontinued Medications Medication Drug Class(es) Dates Sig (Normalized) Sig (Original) acetaminophen 325 mg / HYDROcodone bitartrate 5 mg oral tablet (20 sources) Opioid Agonist Start: 11-16-2015 End: 11-15-2017 Start: 11-16-2015 End: 11-15-2017 take 1 tablet by mouth once daily Hydrocodone-Acetaminophen 5-325 MG Oral Tablet 1 (one) Tablet daily for 0 days Quantity: 30 {Tablet} Refills: 0 Ordered: 15-Nov-2017 Crystal Painter Start : 16-Nov-2015 End : 15-Nov-2017 Discontinued Start: 07-14-2011 End: 01-21-2013 Start: 07-14-2011 End: 01-21-2013 take 1-2 tablets by mouth every six hours as needed VICODIN, 5-500MG (Oral Tablet) 1-2 Table t every 6 hours prn for 0 days Quantity: 20 {Tablet} Refills: 0 Ordered: 14-Jul-2011 Violetta Virgen CMA Start : 14-Jul-2011 End : 21-Jan-2013 Discontinued Comments: This order discontinued per [facility]. Start: 07-14-2011 End: 01-21-2013 take 1-2 tablets by mouth every six hours as needed VICODIN, 5-500MG (Oral Tablet) 1-2 Table t every 6 hours prn for 0 days Quantity: 20 {Tablet} Refills: 0 Ordered: 14-Jul-2011 Violetta Virgen Start : 14-Jul-2011 End : 21-Jan-2013 Discontinued Comments: This order discontinued per [facility]. take 1 tablet by reji th every six hours as needed NORCO, 5-325MG (Oral Tablet) 1 q 6 hours prn (5-325 MG) Inactive take 1-2 tablets by mouth every six hours as needed VICODIN TABS 1-2 tabs po q 6 hrs prn HYDROCODONE-ACETAMINOPHEN TABS [id number] Vicky Smart Mickey BALLESTEROS End: 11-26-2012 take 1-2 tablets by mouth every six hours as needed VICODIN TABS 1-2 tabs po q 6 hrs prn HYDROCODONE-ACETAMINOPHEN TABS [id number] Silvia Mccarthy MD Comment on above: This order discontin ued per [facility]. acetaminophen 325 mg / oxyCODONE hydrochloride 5 mg oral tablet (20 sources) Opioid Agonist Start: 11-04-2018 End: 11-10-2018 Oxycodone-Acetaminophen 1 TABLET tablet Discontinued 1 {tbl} PO EVERY 6 HOURS NEEDED as needed for Pain 01 22November 04, 2018 November 06, 2018 12:00am November 10, 2018 12:10am Start: 11-04-2018 End: 11-10-2018 take 1 tablet by mouth every six hours as needed Oxycodone-Acetaminophen Discontinued 1 TABLET PO EVERY 6 HOURS NEEDED 01 22November 04, 2018 November 10, 2018 12:10am Start: 04-27-2013 End: 11-05-2014 Oxycodone-Acetaminophen 1 TA BLET tablet Discontinued 1 - 2 {tbl} PO EVERY 4 HOURS NEEDED as needed for PAIN 60 May 09, 2013 12:00am June 13, 2013 11:07am Start: 07-21-2009 End: 12-22-2009 Start: 07-21-2009 End: 12-22-2009 take 1-2 tablets by mouth three times daily as needed PERCOCET, 7.5-325MG (Oral Tablet) 1-2 Tablet three times daily, as needed for 0 days Quantity: 30 {Tablet} Refills: 0 Ordered: 22-Dec-2009 RACHEL Bartlett LPN Start : 21-Jul-2009 End : 22-Dec-2009 Inactive Comments: Medication taken as needed. Comment on above: Medication taken as needed. acetaminophen 650 mg / propoxyphene napsylate 100 mg oral tablet (13 sources) Opioid Agonist Start: 12-10-2007 take 1 tablet by mouth four times daily as needed DARVOCET-N 100, 100-650MG (Oral Tablet) 1 (one) Tablet QID/PRN for 0 days Quantity: 30 {Tablet} Refills: 0 Ordered: 14-Jul-2009 RACHEL Bartlett LPN Start : 10-Dec-2007 Inactive Start: 12-10-2007 take 1 tablet by reji four times daily as needed DARVOCET-N 100, 100-650MG (Oral Tablet) 1 (one) Tablet QID/PRN for 0 days Quantity: 30 {Tablet} Refills: 0 Ordered: 14-Jul-2009 GEORGIANA BartlettAINE Start : 10-Dec-2007 Inactive acetaminophen 650 mg / propoxyphene napsylate 100 mg oral tablet (20 sources) Opioid Agonist Start: 12-10-2007 acyclovir 800 mg oral tablet (20 sources) Herpesvirus Nucleoside Analog DNA Polymerase Inhibitor, Herpes Simplex Virus Nucleoside Analog DNA Polymerase Inhibitor, Herpes Zoster Virus Nucleoside Analog DNA Polymerase Inhibitor 0.8 ml adalimumab 50 mg/ml prefilled syringe (11 sources) Tumor Necrosis Factor Marina Start: 11-04-2018 End: 05-31-2023 Adalimumab 40 MG/0.8 ML syringe kit Discontinued 40 mg SQ Q14D November 04, 2018 12:00am May 31, 2023 11:03am [id number] 200 actuat albuterol 0.09 mg/actuat metered dose inhaler (20 sources) beta2-Adrenergic Agonist Start: 06-08-2010 End: 10-07-2010 Start: 06-08-2010 End: 10-07-2010 take 2 puff(s) by inhalation twice daily PROVENTIL HFA, 108 (90 Base)MCG/ACT (Inhalation Aerosol Solution) 2 (two) Puff(s) bid for 0 days Quantity: 1 {Aerosol_Soln} Refills: 0 Ordered: 07-Oct-2010 Julianne Donnelly LPN Start : 08-Jun-2010 End : 07-Oct-2010 Inactive amLODIPine 10 mg oral tablet (20 sources) Dihydropyridine Calcium Channel Marina Start: 07-23-2008 End: 04-26-2024 take 1 tablet by mouth once daily Amlodipine 10 MG tablet Discontinued 10 mg PO DAILY March 14, 2017 5:33pm April 26, 2024 4:33pm amoxicillin 875 mg / clavulanate 125 mg oral tablet (20 sources) Penicillin-class Antibacterial Start: 06-22-2022 End: 06-29-2022 take 1 tablet by mouth every twelve hours Start: 06-19-2018 End: 07-03-2018 Start: 06-19-2018 End: 07-03-2018 take 1 tablet by mouth twice daily Augmentin 875-125 MG Oral Tablet 1 Tablet bid for 14 days Quantity: 28 {Tablet} Refills: 0 Ordered: 19-Jun-2018 Leatha Morrison CNP, CNP, Leatha Crum Start : 19-Jun-2018 End : 03-Jul-2018 Inactive Start: 02-26-2015 End: 03-08-2015 take 1 tablet by mouth twice daily AUGMENTIN, 875-125MG (Oral Tablet) 1 Tablet bid for 10 days Quantity: 20 {Tablet} Refills: 0 Ordered: 26-Feb-2015 Melissa Arnett MD Start : 26-Feb-2015 End : 08-Mar-2015 Inactive Zkmcm-Lrog-Nabzr-Collag-Mv-M in (Patrick (With Collagen)) 7-7-1.5 gram Powder In Packet (3 sources) Start: 06-15-2023 End: 02-26-2024 Udozg-Vpwb-Qrxjx-Collag-Mv-M in (Patrick (With Collagen)) 7-7-1.5 gram Powder In Packet Discontinued 1 NMA PO DAILY 0 June 15, 2023 12:00am February 26, 2024 12:42pm Start: 06-15-2023 Rnbyk-Vfgi-Tij ub-Hnftly-Ya-Min (Patrick (With Collagen)) 7-7-1.5 gram Powder In Packet Active 1 PACKET PO DAILY 0 June 15, 2023 12:00am ascorbic acid 500 mg extended release oral capsule (2 sources) Vitamin C Start: 04-01-2024 End: 04-26-2024 take 1 capsule by mouth twice daily Ascorbic Acid (Vitamin C) 500 mg capsule, extended release Discontinued 500 mg PO TWICE A DAY April 01, 2024 1:00am April 26, 2024 4:33pm atorvastatin 80 mg oral tablet (20 sources) HMG-CoA Reductase Inhibitor Start: 11-15-2017 End: 12-14-2021 azithromycin 250 mg oral tablet (20 sources) Macrolide Antimicrobial Start: 01-11-2021 End: 04-06-2021 Start: 02-25-2011 End: 06-21-2011 ZITHROMAX Z-DAGOBERTO, 250MG (Oral Tablet) 1 Tablet TAD for 0 days Quantity: 1 {Package(s)} Refills: 0 Ordered: 21-Jun-2011 Julianne Donnelly LPN Start : 25-Feb-2011 End : 21-Jun-2011 Inactive benzonatate 100 mg oral caps ule (20 sources) Non-narcotic Antitussive Start: 02-07-2011 End: 02-25-2011 bifidobacterium infantis 4 m g oral capsule (20 sources) Start: 08-26-2013 End: 02-26-2015 Start: 08-26-2013 End: 02-26-2015 take 1 capsule by mouth every other day ALIGN, 4MG (Oral Capsule) 1 (one) Capsule qod for 0 days Quantity: 30 {Capsule} Refills: 0 Ordered: 26-Feb-2015 RACHEL Bartlett LPN Start : 26-Aug-2013 End : 26-Feb-2015 Inactive 24 hr buPROPion hydrochlorid e 300 mg extended release oral tablet (20 sources) Aminoketone Start: 05-01-2007 End: 04-01-2008 Comment on above: wean off cefuroxime 500 mg oral table t (20 sources) Cephalosporin Antibacterial Start: 07-01-2011 End: 07-11-2011 celecoxib 200 mg oral capsul e (20 sources) Nonsteroidal Anti-inflammatory Drug Start: 12-31-2009 End: 11-05-2014 cetirizine hydrochloride 10 mg oral tablet (20 sources) Histamine-1 Receptor Antagonist Start: 07-01-2022 Start: 03-28-2022 End: 06-14-2022 Start: 10-10-2020 End: 05-31-2023 take 1 capsule by mouth once daily Cetirizine (Zyrtec) 10 mg capsule Discontinued 10 mg PO DAILY October 10, 2020 12:00am May 31, 2023 11:04am chlorthalidone 25 mg oral tablet (2 sources) Thiazide-like Diuretic Start: 03-28-2024 End: 04-26-2024 take 1 tablet by mouth at bedtime Chlorthalidone 25 mg tablet Discontinued 25 mg PO AT BEDTIME March 28, 2024 1:00am April 26, 2024 4:49pm chondroitin sulfate-vit C-Mn (20 sources) Start: 11-04-2008 End: 06-08-2010 CHONDROITIN SULFATE-VIT C-MN, 400-60-2.5MG (Oral Capsule) (13 sources) Start: 11-04-2008 End: 06-08-2010 take 1 capsule by mouth once daily CHONDROITIN SULFATE-VIT C-MN, 400-60-2.5MG (Oral Capsule) 1 (one) Capsule daily for 0 days Refills: 0 Ordered: 04-Nov-2008 Benson Donnelly LPNsie Start : 04-Nov-2008 End : 08-Jun-2010 Discontinued Comments: This order discontinued per [facility]. Comment on above: This order discontin ued per [facility]. clarithromycin 500 mg oral tablet (20 sources) Macrolide Antimicrobial Start: 07-20-2018 End: 07-30-2018 Start: 02-23-2015 End: 02-26-2015 Start: 02-23-2015 End: 02-26-2015 take 2 tablets by mouth once daily BIAXIN XL PAC, 500MG (Oral Tablet Extended Release 24 Hour) 2 (two) Tablet ER 24HR daily for 10 days Quantity: 20 {Tablet} Refills: 0 Ordered: 26-Feb-2015 RACHEL Bartlett LPN Start : 23-Feb-2015 End : 26-Feb-2015 Inactive Start: 02-23-2015 End: 02-26-2015 take 2 tablets by mouth once daily BIAXIN XL PAC, 500MG (Oral Tablet Extended Release 24 Hour) 2 (two) Tablet ER 24HR daily for 10 days Quantity: 20 {Tablet} Refills: 0 Ordered: 26-Feb-2015 RACHEL Bartlett Start : 23-Feb-2015 End : 26-Feb-2015 Inactive clobetasol propionate 0.0005 mg/mg topical ointment (20 sources) Corticosteroid Start: 04-06-2020 Start: 04-06-2020 Clobetasol Pro pionate 0.05 % External Ointment 1 Ointment bid for 60 days Quantity: 1 {Tube} Refills: 4 Ordered: 06-Apr-2020 Leatha Morrison CNP, CNP, Mary E Start : 06-Apr-2020 Active Comments: Large tube Start: 11-15-2017 Clobetasol Pro pionate 0.05 % External Ointment 1 Ointment bid for 60 days Quantity: 1 {Tube} Refills: 4 Ordered: 15-Nov-2017 Leatha Morrison CNP, CNP, Mary E Start : 15-Nov-2017 Active Comments: Large tube Comment on above: Large tube clonazePAM 0.5 mg oral tablet (20 sources) Benzodiazepine Start: 09-28-2010 End: 03-29-2011 CLONAZEPAM 0.5 MG TABS as needed CLONAZEPAM [id number] Cassi Haas End: 12-21-2006 clotrimazole 10 mg oral loze nge (20 sources) Azole Antifungal Start: 10-14-2014 End: 01-13-2015 Start: 06-15-2010 End: 10-07-2010 Comment on above: QS codeine phosphate 2 mg/ml / guaiFENesin 20 mg/ml oral solution (20 sources) Opioid Agonist Start: 02-25-2011 End: 06-21-2011 Start: 02-25-2011 End: 06-21-2011 CHERATUSSIN AC, 100-10MG/5ML (Oral Syrup) 1 Teaspoon(s) qhs prn for 0 days Quantity: 6 {Ounce(s)} Refills: 0 Ordered: 21-Jun-2011 Julianne Donnelly LPN Start : 25-Feb-2011 End : 21-Jun-2011 Inactive Comments: six ounces Comment on above: six ounces cyclobenzaprine hydrochlorid e 10 mg oral tablet (20 sources) Muscle Relaxant Start: 06-29-2011 End: 07-14-2011 Start: 03-29-2011 End: 06-28-2012 take 1 tablet by mouth three times daily FLEXERIL 5 MG TABS One tablet by mouth three times daily CYCLOBENZAPRINE HCL [id number] Brain Jean MD DAPTOmycin 500 mg injection (20 sources) Lipopeptide Antibacterial Start: 04-27-2013 End: 05-09-2013 take 1 dose intravenously every twenty-four hours Daptomycin 500 MG/10 ML Vial Discontinued 500 mg IV Q24H April 27, 2013 1:00am May 09, 2013 11:25am Start: 04-15-2013 End: 04-15-2013 Daptomycin 500 MG/10 ML Vial Discontinued 500 mg IV DAILY 39 April 15, 2013 1:00am April 15, 2013 1:28pm daily thru [facility] line with routine picc line care thru May 22, 2013. weekly CBC, CPK, SED RATE, Cr and CRP and fax to Dr Mccarthy at [phone] Hortencia (20 sources) Start: 12-26-2011 End: 11-15-2012 Start: 12-26-2011 End: 11-15-2012 take 1 tablet by mouth once daily DEPLIN, 15MG (Oral Tablet) 1 Tablet daily for 0 days Quantity: 30 {Tablet} Refills: 11 Ordered: 26-Dec-2011 Mer Solorio LPN Start : 26-Dec-2011 End : 15-Nov-2012 Discontinued Comments: This order discontinued per [facility]. Comment on above: This order discontin ued per [facility]. Deplin (algal oil) (20 sources) Start: 12-14-2021 Start: 11-15-2016 End: 11-15-2017 Deplin 15 (20 sources) Start: 12-14-2021 Start: 09-23-2019 Start: 11-15-2017 take 1 capsule by mo ut once daily Deplin 15 15-90.314 MG Oral Capsule 1 Capsule qd for 0 days Quantity: 90 {Capsule} Refills: 3 Ordered: 15-Nov-2017 Leatha Morrison CNP, CNP, Mary E Start : 15-Nov-2017 Active Start: 11-15-2016 End: 11-15-2017 Start: 11-15-2016 End: 11-15-2017 take 1 capsule by mouth once daily Deplin 15 15-90.314 MG Oral Capsule 1 qd (15-90.314 MG) Start : 15-Nov-2016 End : 15-Nov-2017 Discontinued Deplin 15 15-90.314 MG Oral Capsule (20 sources) Start: 09-23-2019 take 1 capsule by mouth once daily Deplin 15 15-90.314 MG Oral Capsule 1 Capsule qd for 0 days Quantity: 90 {Capsule} Refills: 3 Ordered: 23-Sep-2019 Leatha Morrison CNP, CNP, Mary E Start : 23-Sep-2019 Active Start: 09-23-2019 take 1 capsule by mo [facility] once daily Deplin 15 15-90.314 MG Oral Capsule 1 Capsule qd for 0 days Quantity: 90 {Capsule} Refills: 3 Ordered: 23-Sep-2019 Leatha Morrison CNP, CNP, Mary E Start : 23-Sep-2019 Active Comments: Mail order. Start: 11-15-2017 take 1 capsule by mo uth once daily Deplin 15 15-90.314 MG Oral Capsule 1 Capsule qd for 0 days Quantity: 90 {Capsule} Refills: 3 Ordered: 15-Nov-2017 Leatha Morrison CNP, CNP, Mary E Start : 15-Nov-2017 Active Comments: Mail order. Start: 11-15-2017 take 1 capsule by mo ut once daily Deplin 15 15-90.314 MG Oral Capsule 1 Capsule qd for 0 days Quantity: 90 {Capsule} Refills: 3 Ordered: 15-Nov-2017 Leatha Morrison CNP, CNP, Mary E Start : 15-Nov-2017 Active Start: 11-15-2016 End: 11-15-2017 take 1 capsule by mouth once daily Deplin 15 15-90.314 MG Oral Capsule 1 qd (15-90.314 MG) Start : 15-Nov-2016 End : 15-Nov-2017 Discontinued Comment on above: Mail order. DEPLIN, 15MG (Oral Tablet) (12 sources) Start: 12-26-2011 End: 11-15-2012 take 1 tablet by mouth once daily DEPLIN, 15MG (Oral Tablet) 1 Tablet daily for 0 days Quantity: 30 {Tablet} Refills: 11 Ordered: 26-Dec-2011 Mer Solorio RN Start : 26-Dec-2011 End : 15-Nov-2012 Discontinued Comments: This order discontinued per [facility]. Start: 12-26-2011 End: 11-15-2012 take 1 tablet by mouth once daily DEPLIN, 15MG (Oral Tablet) 1 Tablet daily for 0 days Quantity: 30 {Tablet} Refills: 11 Ordered: 26-Dec-2011 Mer Solorio LPN Start : 26-Dec-2011 End : 15-Nov-2012 Discontinued Comments: This order discontinued per [facility]. Comment on above: This order discontin ued per [facility]. desloratadine 5 mg oral tabl et (20 sources) Histamine-1 Receptor Antagonist Start: 05-12-2008 End: 07-10-2008 desoximetasone 0.5 mg/ml top ical cream (20 sources) Corticosteroid Start: 05-12-2008 End: 07-10-2008 Start: 05-12-2008 End: 07-10-2008 TOPICORT LP, 0.05% (External Cream) apply to affected are Cream Twice daily for 0 days Quantity: 30 {Cream} Refills: 1 Ordered: 12-May-2008 RACHEL Bartlett LPN Start : 12-May-2008 End : 10-Jul-2008 Inactive twice-daily diclofenac epolamine 0.013 mg/mg medicated patch (20 sources) Nonsteroidal Anti-inflammatory Drug Start: 10-07-2010 End: 01-11-2011 docosahexaenoic acid 120 mg / eicosapentaenoic acid 180 mg oral capsule (11 sources) Start: 11-04-2008 End: 05-13-2013 docusate sodium 50 mg / sennosides, shelter 8.6 mg oral tablet (5 sources) Start: 06-15-2023 End: 03-04-2024 Sennosides-Docusate Sodium (Stool Softener-Stimulant Laxat) 8.6-50 mg Tablet Discontinued 2 {tbl} PO TWICE A DAY as needed for constipation February 26, 2024 1:00am March 04, 2024 3:51pm Take until first bowel movement, then as needed doxycycline monohydrate 100 mg oral capsule (20 sources) Tetracycline-class Drug Start: 06-15-2023 End: 02-26-2024 take 1 capsule by mouth twice daily Doxycycline Monohydrate 100 mg Capsule Discontinued 100 mg PO TWICE A DAY June 15, 2023 12:00am February 26, 2024 12:44pm Take for 2 weeks postoperatively Start: 07-08-2013 End: 07-08-2014 take 1 capsule by mouth twice daily DOXYCYCLINE HYCLATE 100 MG CAPS one po twice daily DOXYCYCLINE HYCLATE [id number] Silvia Mccarthy MD End: 04-01-2014 Comment on above: Dr. Mccarthy DULoxetine 30 mg delayed release oral capsule (20 sources) Serotonin and Norepinephrine Reuptake Inhibitor Start: 08-13-2019 End: 08-14-2019 Start: 02-19-2007 End: 04-18-2007 Start: 02-19-2007 End: 04-18-2007 CYMBALTA, 60MG (Oral Capsule Delayed Release Particles) 1 (one) Capsule DR Part QD for 0 days Refills: 0 Ordered: 18-Apr-2007 Hope SCHULZ, Melissa Tadeo Start : 19-Feb-2007 End : 18-Apr-2007 Discontinued escitalopram 5 mg oral table t (20 sources) Serotonin Reuptake Inhibitor Start: 11-09-2020 End: 12-14-2021 Start: 03-13-2020 take 1 tablet by reji once daily Escitalopram Oxalate 5 MG Oral Tablet 1 (one) Tablet daily as directed for 0 days Quantity: 30 {Tablet} Refills: 1 Ordered: 13-Mar-2020 Tamiko RAPP, Leatha Morrison LOIN TRIMMER, Leatha Crum Start : 13-Mar-2020 Active esomeprazole 40 mg delayed r elease oral capsule (20 sources) Proton Pump Inhibitor Start: 02-02-2006 End: 12-21-2006 Start: 02-02-2006 End: 12-21-2006 NEXIUM, 40MG (Oral Capsule D elayed Release) [address] qd/prn for 0 days Quantity: 30 {Capsule_DR} Refills: 3 Ordered: 02-Feb-2006 RACHEL Bartlett LPN Start : 02-Feb-2006 End : 21-Dec-2006 Discontinued 0.5 ml etanercept 50 mg/ml injection (20 sources) Tumor Necrosis Factor Marina End: 12-31-2009 End: 12-31-2009 ENBREL, 50MG/ML (Subcutaneou s Solution) 1 2x weekly for 0 days Refills: 0 Ordered: 31-Dec-2009 Mer Solorio RN End : 31-Dec-2009 Inactive End: 12-31-2009 ENBREL, 50MG/ML (Subcutaneou s Solution) 1 2x weekly for 0 days Refills: 0 Ordered: 31-Dec-2009 Mer Solorio RN End : 31-Dec-2009 Inactive End: 12-31-2009 ENBREL, 50MG/ML (Subcutaneou s Solution) 1 2x weekly for 0 days Refills: 0 Ordered: 31-Dec-2009 Mer Solorio LPN End : 31-Dec-2009 Inactive End: 12-31-2009 ENBREL, 50MG/ML (Subcutaneou s Solution) 1 2x weekly for 0 days Refills: 0 Ordered: 31-Dec-2009 Mer Solorio LPN End : 31-Dec-2009 Inactive etodolac 400 mg oral tablet (4 sources) Nonsteroidal Anti-inflammatory Drug Start: 03-29-2011 End: 11-26-2012 take 1 tablet by mouth twice daily ETODOLAC 400 MG TABS One tablet by mouth twice daily. ETODOLAC [id number] Brain Jean MD famotidine 20 mg oral tablet (20 sources) Histamine-2 Receptor Antagonist Start: 06-15-2023 End: 03-04-2024 take 1 tablet by mouth once daily Famotidine 20 mg Tablet Discontinued 20 mg PO DAILY June 15, 2023 12:00am March 04, 2024 3:51pm Start: 11-09-2020 End: 12-14-2021 Start: 10-10-2020 End: 05-31-2023 take 1 tablet by mouth twice daily Famotidine (Pepcid) 20 mg tablet Discontinued 20 mg PO TWICE A DAY October 10, 2020 12:00am May 31, 2023 11:04am Start: 05-12-2008 End: 07-10-2008 72 hr fentaNYL 0.075 mg/hr t ransdermal system (20 sources) Opioid Agonist Start: 01-21-2013 End: 03-11-2013 Start: 01-21-2013 End: 03-11-2013 FENTANYL, 75MCG/HR (Transder mal Patch 72 Hour) 1 Patch 72HR every 72hrs for 0 days Quantity: 5 {Patch_72HR} Refills: 0 Ordered: 11-Mar-2013 RACHEL Bartlett LPN Start : 21-Jan-2013 End : 11-Mar-2013 Inactive Comments: five Start: 01-21-2013 End: 03-11-2013 FENTANYL, 75MCG/HR (Transder mal Patch 72 Hour) 1 Patch 72HR every 72hrs for 0 days Quantity: 5 {Patch_72HR} Refills: 0 Ordered: 11-Mar-2013 RACHEL Bartlett Start : 21-Jan-2013 End : 11-Mar-2013 Inactive Comments: five End: 11-26-2012 FENTANYL 75 MCG/HR PT72 1 q 72 hrs FENTANYL [id number] Vicky Arevalo LPN Comment on above: five fexofenadine hydrochloride 60 mg oral tablet (20 sources) Histamine-1 Receptor Antagonist Start: 01-21-2010 End: 06-08-2010 take 1 tablet by mouth once daily as needed RACHEL, 60MG (Oral Tablet) 1 Tablet qd prn for 0 days Quantity: 10 {Tablet} Refills: 0 Ordered: 08-Jun-2010 Julianne Donnelly LPN Start : 21-Jan-2010 End : 08-Jun-2010 Inactive End: 11-26-2012 take 1 tablet by mouth twice daily RACHEL ALLERGY, 60MG (Oral Tablet) 1 tab bid (60 MG) Inactive fluconazole 150 mg oral tabl et (20 sources) Azole Antifungal Start: 10-14-2014 End: 01-13-2015 furosemide 20 mg oral tablet (20 sources) Loop Diuretic Start: 04-01-2008 gabapentin 100 mg oral capsu le (20 sources) Anti-epileptic Agent Start: 11-16-2015 End: 11-15-2017 Start: 09-05-2006 End: 09-05-2006 Comment on above: disregard Humara (12 sources) Humara 40mg inje ction Inactive Humara 40mg inje ction Active hydroCHLOROthiazide 12.5 mg / olmesartan medoxomil 40 mg oral tablet (20 sources) Thiazide Diuretic, Angiotensin 2 Receptor Marina Start: 12-31-2009 End: 07-09-2012 Start: 12-31-2009 End: 07-09-2012 take 1 tablet by mouth once daily BENICAR HCT 40-12.5 MG TABS One tablet by mouth daily OLMESARTAN MEDOXOMIL-HCTZ [id number] Leatha Montes De Oca RN Start: 07-23-2008 BENICAR HCT TA BS 40/12 daily OLMESARTAN MEDOXOMIL-HCTZ TABS [id number] Mami Worthington LPN HYDROcodone bitartrate 7.5 mg / ibuprofen 200 mg oral tablet (2 sources) Opioid Agonist, Nonsteroidal Anti-inflammatory Drug Start: 12-19-2016 HYDROCODONE-IBUPROFEN 7.5-200 MG TABS As needed for knee pain HYDROCODONE-IBUPROFEN [id number] Jeffrey Leal NP hydrocortisone 0.025 mg/mg topical ointment (20 sources) Corticosteroid Start: 02-25-2011 End: 06-21-2011 Start: 02-25-2011 End: 06-21-2011 HYDROCORTISONE, 2.5% ([employer] al Ointment) 1 Ointment bid for 0 days Quantity: 1 {Ointment} Refills: 1 Ordered: 21-Jun-2011 Julianne Donnelly LPN Start : 25-Feb-2011 End : 21-Jun-2011 Inactive hydrOXYzine hydrochloride 25 mg oral tablet (19 sources) Antihistamine Start: 03-16-2022 End: 03-28-2022 L-XJRSHWOLNGHK-OBAPL CAPS (8 sources) End: 06-14-2013 take 1 tablet by mouth once daily DEPLIN 15 CAPS One tablet by mouth daily E-[id number]-[id number] AE CAPS [id number] Vicky Arevalo LPN take 1 tablet by reji th once daily DEPLIN 15 CAPS One tablet by mouth daily D-SUXBLMOEDVIY-QFVBY CAPS [id number] Vicky Arevalo LPN End: 11-26-2012 take 1 tablet by mouth once daily DEPLIN 15 CAPS One tablet by mouth daily A-[id number] CAPS [id number] Silvia Mccarthy MD lactobacillus rhamnosus gg 4 [id number] unt oral capsule (20 sources) Start: 05-11-2012 End: 05-25-2012 Start: 05-11-2012 End: 05-25-2012 take 1 capsule by mouth twice daily ELMOLLE, 10B CELL (Oral Capsule) 1 Capsule bid for 14 days Quantity: 28 {Capsule} Refills: 0 Ordered: 11-May-2012 Julianne Donnelly LPN Start : 11-May-2012 End : 25-May-2012 Inactive lamoTRIgine 100 mg oral tablet (20 sources) Mood Stabilizer, Anti-epileptic Agent Start: 07-23-2008 End: 03-11-2013 Comment on above: thirty levocetirizine dihydrochloride 5 mg oral tablet (20 sources) Histamine-1 Receptor Antagonist Start: 11-09-2020 End: 06-14-2022 Levomefolate-Algal Oil (Deplin (Algal Oil)) 7.5 MG tablet (3 sources) Start: 07-23-2013 End: 04-26-2024 Levomefolate-Algal Oil (Deplin (Algal Oil)) 7.5 MG tablet Discontinued 15 mg PO DAILY July 23, 2013 12:00am April 26, 2024 4:34pm Start: 07-23-2013 Levomefolate-A lgal Oil (Deplin (Algal Oil)) 7.5 MG tablet Active 15 MG PO DAILY July 23, 2013 12:00am levothyroxine sodium 0.125 mg oral capsule (20 sources) l-Thyroxine Start: 05-31-2023 End: 04-26-2024 Levothyroxine 125 mcg capsule Discontinued 187.5 ug PO .dontrell May 31, 2023 12:00am April 26, 2024 4:34pm Start: 05-31-2023 take 187.5 ug by reji th once daily Levothyroxine Active 187.5 MCG PO DAILY May 31, 2023 12:00am Start: 12-16-2022 Start: 12-14-2021 Start: 11-18-2020 Start: 09-23-2019 take 1 tablet by reji th once daily, then take 2 tablets by mouth Synthroid 150 MCG Oral Tablet 1 Tablet qd except 2 on Monday for 0 days Quantity: 36 {Tablet} Refills: 6 Ordered: 23-Sep-2019 Tamiko RAPP EdiliaSkyla Morrison CNP Edilia Start : 23-Sep-2019 Active Dispense as Written Comments: GISSELLE Start: 11-15-2017 take 1 tablet by reji th once daily, then take 2 tablets by mouth Synthroid 150 MCG Oral Tablet 1 Tablet qd except 2 on Monday for 0 days Quantity: 36 {Tablet} Refills: 6 Ordered: 15-Nov-2017 Leatha Morrison CNP, CNP Leatha Crum Start : 15-Nov-2017 Active Dispense as Written Comments: GISSELLE Start: 03-12-2013 End: 04-26-2024 Levothyroxine 125 MCG tablet Discontinued [facility] May 31, 2023 12:00am April 26, 2024 4:34pm Start: 09-28-2010 take 1 tablet by reji th once daily LEVOTHROID 125 MCG TABS One tablet by mouth daily LEVOTHYROXINE SODIUM [id number] Cassi Haas Start: 11-18-2009 End: 12-18-2009 take 1 tablet by mouth once daily SYNTHROID 150 MCG TABS 1 tab by mouth daily LEVOTHYROXINE SODIUM [id number] Martita OLSEN Start: 12-24-2008 End: 11-18-2009 SYNTHROID 125 MCG TABS daily LEVOTHYROXINE SODIUM [id number] Mami Worthington LPN Start: 08-06-2008 End: 11-17-2008 Start: 11-27-2006 End: 12-26-2006 Start: 11-14-2005 End: 11-14-2005 Comment on above: GISSELLE med increased now using 200 only linezolid 600 mg oral tablet (20 sources) Oxazolidinone Antibacterial Start: 05-13-2013 End: 08-26-2013 Start: 05-07-2013 End: 05-09-2013 take 1 tablet by mouth every twelve hours Linezolid 600 MG tablet Discontinued 600 mg PO Q12H 42 May 07, 2013 12:00am May 09, 2013 11:25am take every 12 hrs until surgery of R hip replacement Comment on above: until May when eloy staton is scheduled lisinopril 10 mg oral tablet (20 sources) Angiotensin Converting Enzyme Inhibitor Start: 04-30-2021 End: 12-14-2021 Start: 04-06-2021 Start: 11-18-2020 Start: 09-23-2019 take 1 tablet by reji th once daily Lisinopril 5 MG Oral Tablet 1 (one) Tablet daily for 30 days Quantity: 30 {Tablet} Refills: 3 Ordered: 23-Sep-2019 Leatha Morrison CNP, CNP, Mary E Start : 23-Sep-2019 Active Start: 11-15-2017 take 1 tablet by reji th once daily Lisinopril 5 MG Oral Tablet 1 (one) Tablet daily for 30 days Quantity: 30 {Tablet} Refills: 3 Ordered: 15-Nov-2017 Leatha Morrison CNP, CNP, Mary E Start : 15-Nov-2017 Active Start: 12-19-2016 take 1 tablet by reji th once daily LISINOPRIL 5 MG TABS One tablet by mouth daily LISINOPRIL [id number] Jeffrey Leal NP loratadine 10 mg oral tablet (20 sources) 24 hr loratadine 10 mg / pseudoephedrine sulfate 240 mg extended release oral tablet (20 sources) alpha-Adrenergic Agonist Start: 06-21-2011 End: 06-26-2011 Start: 06-21-2011 End: 06-26-2011 take 10-240 mg by mouth every twenty-four hours CLARITIN-D 24 HOUR, 10-240MG (Oral Tablet Extended Release 24 Hour) 1 Tablet ER 24HR daily for 5 days Quantity: 5 {Tablet_ER_24HR} Refills: 0 Ordered: 21-Jun-2011 Julianne Donnelly LPN Start : 21-Jun-2011 End : 26-Jun-2011 Inactive Start: 06-21-2011 End: 06-26-2011 take 1 tablet by mouth once daily CLARITIN-D 24 HOUR, 10-240MG (Oral Tablet Extended Release 24 Hour) 1 Tablet ER 24HR daily for 5 days Quantity: 5 {Tablet_ER_24HR} Refills: 0 Ordered: 21-Jun-2011 Julianne Donnelly LPN Start : 21-Jun-2011 End : 26-Jun-2011 Inactive meloxicam 7.5 mg oral tablet (20 sources) Nonsteroidal Anti-inflammatory Drug Start: 06-15-2023 End: 02-26-2024 take 1 tablet by mouth twice daily Meloxicam 7.5 mg Tablet Discontinued 7.5 mg PO TWICE A DAY 60 30 June 15, 2023 12:00am February 26, 2024 12:45pm Do not take any other nonsteroidal anti-inflammatories while using meloxicam/Mobic. End: 11-26-2012 meperidine hydrochloride 50 mg oral tablet (20 sources) Opioid Agonist Start: 12-10-2007 End: 04-24-2008 Start: 12-10-2007 End: 04-24-2008 take 1 tablet by mouth once DEMEROL, 50MG (Oral Tablet ) 1 (one) Tablet take once for 0 days Quantity: 1 {Tablet} Refills: 0 Ordered: 10-Dec-2007 RACHEL Bartlett LPN Start : 10-Dec-2007 End : 24-Apr-2008 Inactive MEDROL (DAGOBERTO), 4MG (Oral Tabl et) (20 sources) Corticosteroid Start: 09-05-2011 End: 02-03-2012 Start: 09-05-2011 End: 02-03-2012 MEDROL (DAGOBERTO), 4MG (Oral Tabl et) 1 Tablet uad for 0 days Refills: 0 Ordered: 03-Feb-2012 Bonnie Moise RN Start : 05-Sep-2011 End : 03-Feb-2012 Inactive Comments: Wean 28mg to 4mg over 7 days take with food Start: 06-21-2011 End: 06-27-2011 Start: 06-21-2011 End: 06-27-2011 MEDROL, 4MG (Oral Tablet) 1 Tablet TAD for 0 days Quantity: 1 {Package(s)} Refills: 0 Ordered: 27-Jun-2011 RACHEL Bartlett LPN Start : 21-Jun-2011 End : 27-Jun-2011 Inactive Comments: Wean 24mg to 4 mg over 6 days take with food Comment on above: Wean 28mg to 4mg ove r 7 days take with food Wean 24mg to 4 mg ov er 6 days take with food 24 hr metoprolol succinate 2 5 mg extended release oral tablet (20 sources) beta-Adrenergic Marina Start: 12-14-2021 End: 06-14-2022 Start: 04-06-2021 Start: 06-28-2012 End: 11-16-2015 take 1 tablet by mouth once daily Metoprolol Succinate 50 MG tablet Discontinued 50 mg PO DAILY March 12, 2013 1:00am June 13, 2013 11:06am take 1 tablet by reji th once daily TOPROL XL 100 MG [id number] One tablet by mouth daily METOPROLOL SUCCINATE [id number] Martita OLSEN metroNIDAZOLE 500 mg oral ta blet (20 sources) Nitroimidazole Antimicrobial Start: 10-25-2018 End: 11-05-2018 Start: 05-31-2012 End: 06-14-2012 take 1 tablet by mouth three times daily FLAGYL, 500MG (Oral Tablet) 1 Tablet tid for 14 days Quantity: 42 {Tablet} Refills: 0 Ordered: 31-May-2012 Aye Nicholson DO Start : 31-May-2012 End : 14-Jun-2012 Inactive mometasone furoate 0.05 mg/a ctuat metered dose nasal spray (20 sources) Corticosteroid Start: 01-21-2010 End: 06-08-2010 Start: 01-21-2010 End: 06-08-2010 NASONEX, 50MCG/ACT (Nasal [place] spension) 2 (two) Suspension qd for 0 days Quantity: 1 {Suspension} Refills: 0 Ordered: 08-Jun-2010 Julianne Donnelly LPN Start : 21-Jan-2010 End : 08-Jun-2010 Inactive montelukast 10 mg oral table t (20 sources) Leukotriene Receptor Antagonist Start: 04-18-2007 End: 04-24-2008 mupirocin 0.02 mg/mg nasal ointment (20 sources) RNA Synthetase Inhibitor Antibacterial Start: 01-11-2011 End: 01-21-2011 Start: 09-05-2006 End: 04-18-2007 naproxen 500 mg oral tablet (20 sources) Nonsteroidal Anti-inflammatory Drug Start: 11-04-2018 End: 05-31-2023 take 1 tablet by mouth twice daily Naproxen 500 MG tablet Discontinued 500 mg PO TWICE A DAY November 04, 2018 12:00am May 31, 2023 11:05am olmesartan medoxomil 5 mg oral tablet (2 sources) Angiotensin 2 Receptor Marina take 1 tablet by mouth once daily BENICAR 5 MG TABS One tablet by mouth daily OLMESARTAN MEDOXOMIL [id number] Brain Jean MD omega 4-obm-ghs-fish oil (20 sources) Start: 9 End: 4 omega-3 acid ethyl esters (shelter) 1000 mg oral capsule (9 sources) Start: 9 End: 4 take 1 capsule by mouth once daily FISH OIL CONCENTRATE, 1000MG (Oral Capsule) 1 (one) Capsule daily for 0 days Refills: 0 Ordered: 13-May-2013 RACHEL Bartlett Start : 04-Nov-2008 End : 13-May-2013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 Translations: [Other specified disorders of tendon, right knee] Onset: 01-15-2024 Episodic Other connective tissue disease (4 sources) Pain in right hand; Translations: [Hand pain, right] 08-13-2019 Other lower respiratory disease (2 sources) Dyspnea; Translations: [Dyspnea, unspecified] Onset: 09-28-2010 09-28-2010 Episodic Other non-traumatic joint disorders (6 sources) Pain in left shoulder; Translations: [Left shoulder pain] Onset: 03-28-2024 03-04-2024 Episodic Other non-traumatic joint disorders (11 sources) Pain in right knee; Translations: [Knee pain, right] 10-25-2018 Comment on above: chronic rt knee pain since replacement in 2012 now fell, sees pain specialist, on gabapentin and hydrocodone from [facility] [address] Gibbs Other nutritional; endocrine; and metabolic disorders (2 sources) Body mass index (BMI) 29.0-29.9, adult; Translations: [Body Mass Index 29.0-29.9, adult] Onset: 03-08-2013 03-08-2013 Episodic Other skin disorders (1 source) Inflammatory dermatosis; Translations: [Dermatitis] Resolved: 08-26-2008 08-26-2008 Episodic Residual codes; unclassified (16 sources) Edema, unspecified; Translations: [Swelling - edema - symptom] Resolved: 07-14-2009 02-03-2012 Episodic Residual codes; unclassified (1 source) Asymptomatic menopausal state; Translations: [Asymptomatic menopausal state] Onset: 03-06-2024 Episodic Superficial injury; contusion (4 sources) Contusion of hip; Translations: [Contusion of right hip] Onset: 03-29-2011 03-29-2011 Episodic Unclassified (20 sources) DEFICIENCY, VITAMIN D NOS (268.9) Unclassified (20 sources) URTICARIA NOS (708.9) Unclassified (13 sources) Work Physical (V70.5) Unclassified (20 sources) C. difficile colitis (008.45) Unclassified (20 sources) Lesion-Unknown behavior (238.2) Unclassified (20 sources) Torso/Trunk (879.7) Unclassified (13 sources) Ovarian Cyst, Unspecified (620.2) Unclassified (20 sources) Unspecified Diagnosis Resolved: 03-11-2013 03-11-2013 Unclassified (20 sources) Urticaria, allergic (708.0) Unclassified (20 sources) History of Clostridium difficile infection (V12.09) Unclassified (13 sources) Pain of right thigh (729.5) Unclassified (20 sources) Altered gait (781.2) Unclassified (20 sources) Degenerative Disc Disease - Lumbar (722.52) Unclassified (20 sources) MOUTH, NOS Resolved: 03-11-2013 03-11-2013 Unclassified (2 sources) Exposure to the flu Unclassified (13 sources) Infection or inflammatory reaction due to internal right hip prosthesis Unclassified (13 sources) SORE THROAT, STREPTOCOCCAL (034.0) Unclassified (20 sources) Dilation And Curettage Of Uterus; Translations: [Dilation And Curettage Of Uterus] 11-15-2017 Unclassified (14 sources) Annual physical exam; Translations: [Patient encounter status] 11-15-2017 Unclassified (13 sources) Encounter for screening mammogram for breast cancer (Renamed from Encounter for screening mammogram for malignant neoplasm of breast) Unclassified (20 sources) Physical exam for work/school/camp (Renamed from Encounter for school health examination) Unclassified (20 sources) Hypertension, benign Unclassified (13 sources) History of Clostridium difficile Unclassified (13 sources) Flu-like symptoms Unclassified (20 sources) Knee pain, right Unclassified (13 sources) Hypertension with heart disease Unclassified (20 sources) Tubal Ligation; Translations: [Tubal Ligation] Resolved: 11-17-2008 02-03-2012 Unclassified (20 sources) Heart Cath Resolved: 11-17-2008 02-03-2012 Unclassified (13 sources) SYMPTOMS INVOLVING RESPIRATORY SYSTEM AND OTHER CHEST SYMPTOMS; SHORTNESS OF BREATH (786.05) Unclassified (20 sources) Patient encounter status; Translations: [Encounter for pre-employment examination] Resolved: 05-13-2013 01-06-2015 Comment on above: addendum to 11 vis it postmenapuasal filled out form. uzma l get mammo. will follow up for pap. colonscopy in last 10 years. pt to find out where to get shingles vaccine before do cleared for surgery if labs okay. need to assure tsh good. will check labs tomorrow then once see labs will send over clearance. cardio cleared. right WILSON filled out form. Unclassified (20 sources) Pregnancies (); Translations: [Pregnancies ()] 11-15-2017 Comment on above: 2 Unclassified (20 sources) Deliveries (Parity); Translations: [Deliveries (Parity)] 11-15-2017 Comment on above: 2 Unclassified (12 sources) Tubal Ligation Unclassified (20 sources) Dilation And Curettage Of Uterus; Translations: [Dilation And Curettage Of Uterus] 06-19-2018 Unclassified (12 sources) Non-smoker; Translations: [Nonsmoker] 06-19-2018 Unclassified (4 sources) Screening status; Translations: [Screening for osteoporosis (Renamed from Encounter for screening for osteoporosis)] 06-19-2018 Comment on above: postmenapuasal Unclassified (11 sources) Preprocedural examination done; Translations: [Pre-operative examination] Resolved: 05-13-2013 11-25-2014 Comment on above: cleared for surgery if labs okay. need to assure tsh good. will check labs tomorrow then once see labs will send over clearance. cardio cleared. right WILSON Unclassified (9 sources) Tonsil stone Unclassified (4 sources) Elevated blood pressure reading Unclassified (8 sources) Hand pain, right Viral infection (20 sources) Disease caused by 2019-nCoV; Translations: [COVID] Resolved: 12-14-2021 01-11-2021 Episodic Results Test Name Value Interpretation Reference Range Facility Vitamin D,25 Hydroxyon 07-02 Vitamin D 25-OH 26.3 ng/mL Low 30-100 [facility] Comment on above: Result Comment: Jackie min D Status Deficiency: <20 ng/mL (50nmol/L) Insufficiency: 20-30 ng/mL (50-75 nmol/L) Sufficiency: 30-100 ng/mL (75-250 nmol/L) Toxicity: >100 ng/mL (>250 nmol/L) Performed By: #### L 506.1001 ####[facility] [address] [place], [address] PT D/C Summary (1)on 025 PT D/C Summary (1) [facility] Physical Therapy [facility] [address] [place] [address] / REHABILITATION SERVICES DISCHARGE SUMMARY MR#: [id number] Acct: [id number] Name: HANNAH LIGHT Rep #: [id number] : 1950 74 From: Rory Forrest PT, Cert. T, OCS Referring Dr.: REBECCA Escobedo Status: REG RCR Insurance: [employer]/[facility] SELF PAY INSURANCE Discharge Summary D/C summary: It has been my pleasure to treat HANNAH LIGHT referred by REBECCA Wallace, with the diagnosis of LEFT SHOULDER PAIN for a total of 6 visit(s). Discharge Date: Please see the following information for a summary of their discharge status. Subjective Subjective: Pain is same Pain Left: Pain Intensity (Out of 10): 7 Objective Objective/Function: Objective: POSTURE: rounded shoulders forward head PALPATION: tender UT/levator/AC region NEURO: c/o occasional paresthesia in hand especially when sleeping AROM: shoulder flexion 110 degrees pain ,abduction 110 degrees pain ,ER 80 degrees, IR S1 PROM: shoulder flexion 140 degrees ,abduction 140 in scaption ER pain CAPSULAR RESTRICTION: mod tight SCAPULAR HUMERAL: 1:1 Ratio MMT: ( peak force) infraspinatus 8.2 ,supraspinatus 6.9,deltoid ( anterior)11.4 subscapularis Goals Goal 1:: Patient to be I with HEP for shoulder Goal 2:: Patient to demonstrate 50% improvement with less pain and improve function Goal 3:: Patient to improve oswestry score by 5 points to improve QOL and function Goal 4:: Patient to improve shoulder AROM flexion 150 degrees and abduction 150 degrees for activities above 90 degrees and self hygiene Goal 5:: Patient to improve peak force RTC and deltoid by 5-10# to improve function and ADLS Plan Plan: RTD MAY BENEFIR FROM MRI PT INTERVENTIONS ROM EX'S ,MANUAL THERAPY G-H joints mobs 2-3 ,RTC/SCAPULAR STRENGTHENING AND POSTURAL EX'S D/C Information d/c sentence: If there are questions or concerns regarding this patient's physical therapy, please feel free to call me at [phone]. Thank you for the referral of this patient. Sincerely, Rory Forrest, PT, Cert MDT, OCS Balance/Gait/Functional tests Balance/Special Test Scores Quick DASH Score: 62.5000 06/26/24 1558 CC: REBECCA Chambersyn Gregg JLA Signed Normal [facility] TSH DL <= 0.005 mIU/L QnOrde red By: Mayra Escobedo on 06-11-2024 TSH Qn 1.730 uIU/mL 0.300-4.20 0 [facility] Thyroid Stim Hormone (TSH)on 06-11-2024 TSH 1.730 uIU/mL Normal 0.300-4.20 0 [facility] Comment on above: Performed By: #### L 501.9520 ####[facility] [address] [place], [place], [address] Cardiology Visit Reporton Cardiology Visit Report [facility] [address] [place], [place] [address] OFFICE VISIT Date of Service: 04/26/24 MR#: [id number] Acct: [id number] Name: HANNAH LIGHT Rep #: [id number] : 1950 Provider: Dr. Jose Miguel gan MD Age/Sex: 74/F [place] [facility] [place] Signed with Addenda ADDENDUM by Dr. Jose Miguel Eng MD on 04/26/24 at 1608 HPI History of Present Illness Details: ECG done in April 01, 2024 showed normal sinus rhythm and was normal. Assessment and Plan Assessment and Plan (1) Syncope: Status: Chronic Qualifiers: Syncope type: vasovagal syncope Qualified Code(s): R55 - Syncope and collapse (2) Dyslipidemia: Status: Chronic (3) Hypertension: Status: Chronic Qualifiers: Hypertension type: primary hypertension Qualified Code(s): I10 - Essential (primary) hypertension Medications: New carvedilol (Coreg) must administer with a meal/food 12.5 mg PO BID 60 tabs 11RF Discontinued chlorthalidone Discontinued Reason: Order Changed 25 mg PO QHS cholesterol Plan Details Follow Up: 6 Months (With SHAWN and as needed) 04/26/24 1608 Date Jose Miguel Eng MD cc: ELECTRICAL PROSPECTOR-C Mayra Escobedo * Signed HPI HPI History of Present Illness Details: Patient is a 74-year-old white female that comes in for new patient visit. Patient been previously evaluated and treated by Dr. Kristyn Leblanc for neurocardiogenic syncope. She reports that her symptoms have become much more prominent recently she was actually hospitalized April 01 through April 02. She was evaluated by neurology at that time and diagnosed with vasovagal syncope. 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 If she does not then it progresses to where she passes out. The patient also complains of lightheaded and dizziness when bending over to do anything she almost complains of dizziness when she turns her head quickly. She has been treated with meclizine in the past and had a negative workup in the emergency department to rule out a CVA or TIA. She was evaluated as noted by neurology they thought this might be a migraine which she disputes. The patient did have mild left internal carotid artery disease with a 50 to 60% plaque on carotid CTA. She had an echocardiogram done April 01, 2024 that showed an EF of 60% no evidence of diastolic dysfunction and trivial mitral regurgitation. Patient's blood pressures been difficult to control and her primary care physician has been manipulating her medications to try and get better control. Intake Vital Signs 02/26/24 11:48 04/02/24 10:18 04/26/24 15:28 Height 5 ft 3 in 5 ft 3 in 5 ft 3 in Weight: 174 lb BMI 30.8 BP 145/83 H Blood Pressure Location Lt brachial Position Sitting Respiration 18 Pulse 87 Pulse Source Monitor Pulse Oximetry (%) 96 Oxygen Delivery Method room air Intake Visit Reasons: Dizziness/Giddiness/Ligh theaded (Self) Director Of Instruction Required: No Accompanied by: Self Is patient in pain?: No Allergies albuterol Allergy (Verified 04/26/24 15:28) Swelling lidocaine (From Lidoderm) Allergy (Verified 04/26/24 15:28) Hives Medications ???Medication ???Instructions ???Recorded ???Confirmed ???Type ergocalciferol (vitamin D2) 1,250 50,000 unit PO .2X WEEK SUPPLEMEN T 05/31/23 04/26/24 History mcg (50,000 unit) capsule (Vitamin D2) ferrous sulfate 325 mg (65 mg 325 mg PO .QOD SUPPLEMENT 05/31/23 04/26/24 History iron) tablet lorazepam 0.5 mg tablet 0.5 mg PO BID PRN anxiety 03/28/24 04/26/24 History meclizine 25 mg tablet 25 mg PO 4X/DAY PRN dizziness 08/1404/26/24 History pantoprazole 40 mg tablet,delayed 40 mg PO QDAY 03/28/24 04/26/24 H istory release acetaminophen 500 mg tablet 1,000 mg PO TID PRN pain 04/01/24 04/26/24 History aspirin 81 mg chewable tablet 81 mg PO DAILY 04/01/24 04/26/24 H istory alendronate 70 mg tablet 70 mg PO QWEEK bone 04/26/2404/26 History carvedilol 12.5 mg tablet (Coreg) 12.5 mg PO BID #60 tabs 04/26/24 04/26/24 Rx losartan 25 mg tablet 25 mg PO DAILY BP 04/26/24 5 History Ejection fraction %: 60 Have you fallen in the past year?: No PFSH Medical History (Updated 04/26/24 @ 16:[address] Jose Miguel Eng MD) Migraine Neurocardiogenic syncope GERD (gastroesophageal reflux disease) Primary osteoarthritis, left shoulder Left shoulder pain Wears glasses Post-menopausal History of Clostridium difficile infection Depression Anxiety History of steroid therapy Thyroid disease Rheumatoid arthritis Arthritis High cholesterol Back (more content not included)... Normal [facility] Absolute lymphocyte countOrd ered By: Chelsea Kaufman on 04-02-2024 Lymphocytes Auto (Unsp spec) [#/Vol] 2.27 10*3/uL 0.83-4.51 [facility] Absolute neutrophil countOrd ered By: Chelsea Kaufman on 04-02-2024 Neutrophils (Bld) [#/Vol] 3.1 10*3/uL 2.0-7.7 [facility] Albumin to globulin ratioOrd ered By: Chelsea Kaufman on 04-02-2024 Albumin/Globulin [Mass ratio] 1.2 {ratio} 0.9-2.4 [facility] Automated lymphocyte count a s percentage of total leukocytesOrdered By: Chelsea Kaufman on 04-02-2024 Lymphocytes/100 WBC Auto (Unsp spec) 37.2 % 19-41 [facility] Basophil percentageOrdered B y: Chelsea Kaufman on 04-02-2024 Basophils/100 WBC (Bld) 0.3 % 0-1 [facility] Bilirubin, totalOrdered By: Chelsea Kaufman on 04-02-2024 Bilirubin [Mass/Vol] 0.50 mg/dL 0.20-1.00 [facility] Comment on above: For patients on eltr ombopag therapy, use of Dimension [place] TBIL is not recommended. Blood urea nitrogen (BUN)/cr eatinine ratioOrdered By: Chelsea Kaufman on 04-02-2024 Urea nitrogen/Creatinine [Mass ratio] 16.6 mg/mg 10-20 [facility] CBC W/Diff, Automatedon 03-23 Absolute Lymph 2.27 X10 3/uL Normal 0.83-4.51 [facility] Comment on above: Performed By: #### L 500.4100, L501.5200, L501.2300, L100.0100, L500.4050, L501.9520 ####[facility] [address] [place], [address] Absolute Neut 3.1 X10 3/uL Normal 2.0-7.7 [facility] Comment on above: Performed By: #### L 500.4100, L501.5200, L501.2300, L100.0100, L500.4050, L501.9520 ####[facility] [address] [place], [address] Basophils/100 WBC (Bld) 0.3 % Normal 0-1 [facility] Comment on above: Performed By: #### L 500.4100, L501.5200, L501.2300, L100.0100, L500.4050, L501.9520 ####[facility] [address] [place], [address] Eosinophils/100 WBC (Bld) 1.6 % Normal 0-5 [facility] Comment on above: Performed By: #### L 500.4100, L501.5200, L501.2300, L100.0100, L500.4050, L501.9520 ####[facility] [address] [place], [address] Erythrocyte distribution width (RBC) [Ratio] 12.7 % Normal 11.6-14.6 [facility] Comment on above: Performed By: #### L 500.4100, L501.5200, L501.2300, L100.0100, L500.4050, L501.9520 ####[facility] [address] [place], [address] Hematocrit (Bld) [Volume fraction] 37.2 % Normal 37-47 [facility] Comment on above: Performed By: #### L 500.4100, L501.5200, L501.2300, L100.0100, L500.4050, L501.9520 ####[facility] [address] [place], [address] Hemoglobin (Bld) [Mass/Vol] 12.2 g/dL Normal 12.0-15.0 [facility] Comment on above: Performed By: #### L 500.4100, L501.5200, L501.2300, L100.0100, L500.4050, L501.9520 ####[facility] [address] [place], [address] IG% 0.300 Normal 0.0-0.9 [facility] Comment on above: Result Comment: IG% - Immature Granulocytes (promyelocytes, myelocytes and metamyelocytes) > 1% indicates that a LEFT SHIFT is Present. Performed By: #### L 500.4100, L501.5200, L501.2300, L100.0100, L500.4050, L501.9520 ####[facility] [address] [place], [address] Lymphocytes/100 WBC (Bld) 37.2 % Normal 19-41 [facility] Comment on above: Performed By: #### L 500.4100, L501.5200, L501.2300, L100.0100, L500.4050, L501.9520 ####[facility] [address] [place], [address] MCH (RBC) [Entitic mass] 29.4 pg Normal 27.0-32.0 [facility] Comment on above: Performed By: #### L 500.4100, L501.5200, L501.2300, L100.0100, L500.4050, L501.9520 ####[facility] [address] [place], [address] MCHC (RBC) [Mass/Vol] 32.8 g/dL Normal 32-36 [facility] Comment on above: Performed By: #### L 500.4100, L501.5200, L501.2300, L100.0100, L500.4050, L501.9520 ####[facility] [address] [place], [address] MCV (RBC) [Entitic vol] 89.6 fL Normal 81-99 [facility] Comment on above: Performed By: #### L 500.4100, L501.5200, L501.2300, L100.0100, L500.4050, L501.9520 ####[facility] [address] [place], [address] Monocytes/100 WBC (Bld) 10.6 % High 0-10 [facility] Comment on above: Performed By: #### L 500.4100, L501.5200, L501.2300, L100.0100, L500.4050, L501.9520 ####[facility] [address] [place], [address] Neutrophils/100 WBC (Bld) 50.0 % Normal 47-70 [facility] Comment on above: Performed By: #### L 500.4100, L501.5200, L501.2300, L100.0100, L500.4050, L501.9520 ####[facility] [address] [place], [address] Nucleated RBC (Bld) [#/Vol] 0 10*3/uL Normal 0-5 [facility] Comment on above: Performed By: #### L 500.4100, L501.5200, L501.2300, L100.0100, L500.4050, L501.9520 ####[facility] [address] [place], [address] Platelet mean volume (Bld) [Entitic vol] 10.6 fL Normal 6.2-12.0 [facility] Comment on above: Performed By: #### L 500.4100, L501.5200, L501.2300, L100.0100, L500.4050, L501.9520 ####[facility] [address] [place], [address] Platelets (Bld) [#/Vol] 207 10*3/uL Normal 150-450 [facility] Comment on above: Performed By: #### L 500.4100, L501.5200, L501.2300, L100.0100, L500.4050, L501.9520 ####[facility] [address] [place], [address] RBC (Bld) [#/Vol] 4.15 10*6/uL Low 4.2-5.4 [facility] Comment on above: Performed By: #### L 500.4100, L501.5200, L501.2300, L100.0100, L500.4050, L501.9520 ####[facility] [address] [place], [address] RDW SD 41.7 fl Normal 35.1-43.9 [facility] Comment on above: Performed By: #### L 500.4100, L501.5200, L501.2300, L100.0100, L500.4050, L501.9520 ####[facility] [address] [place], [address] WBC (Bld) [#/Vol] 6.1 10*3/uL Normal 4.4-11.0 [facility] Comment on above: Performed By: #### L 500.4100, L501.5200, L501.2300, L100.0100, L500.4050, L501.9520 ####[facility] [address] [place], [address] Carbon dioxide measurementOr dered By: Chelsea Kaufman on 04-02-2024 CO2 [Moles/Vol] 24.0 mmol/L 21.0-32.0 [facility] Chloride measurementOrdered By: Chelsea Kaufman on 04-02-2024 Chloride [Moles/Vol] 108 mmol/L High 98-107 [facility] Comprehensive Metabolic Prof ilon 04-02-2024 Albumin [Mass/Vol] 3.3 g/dL Normal 3.2-5.0 [facility] Comment on above: Order Comment: Comme nts: NPO at [place] prior to lipid panel Performed By: #### L 500.4100, L501.5200, L501.2300, L100.0100, L500.4050, L501.9520 ####[facility] [address] [place], [address] Albumin/Globulin [Mass ratio] 1.2 {ratio} Normal 0.9-2.4 [facility] Comment on above: Order Comment: Comme nts: NPO at [place] prior to lipid panel Performed By: #### L 500.4100, L501.5200, L501.2300, L100.0100, L500.4050, L501.9520 ####[facility] [address] [place], [address] ALK P 59 U/L Normal 45-117 [facility] Comment on above: Order Comment: Comme nts: NPO at [place] prior to lipid panel Performed By: #### L 500.4100, L501.5200, L501.2300, L100.0100, L500.4050, L501.9520 ####[facility] [address] [place], [address] ALT [Catalytic activity/Vol] 23 U/L Normal 13-56 [facility] Comment on above: Order Comment: Comme nts: NPO at [place] prior to lipid panel Performed By: #### L 500.4100, L501.5200, L501.2300, L100.0100, L500.4050, L501.9520 ####[facility] [address] [place], [address] AST [Catalytic activity/Vol] 13 U/L Low 15-37 [facility] Comment on above: Order Comment: Comme nts: NPO at [place] prior to lipid panel Performed By: #### L 500.4100, L501.5200, L501.2300, L100.0100, L500.4050, L501.9520 ####[facility] [address] [place], [address] Bilirubin [Mass/Vol] 0.50 mg/dL Normal 0.20-1.00 [facility] Comment on above: Order Comment: Comme nts: NPO at [place] prior to lipid panel Result Comment: For patients on eltrombopag therapy, use of Dimension [place] TBIL is not recommended. Performed By: #### L 500.4100, L501.5200, L501.2300, L100.0100, L500.4050, L501.9520 ####[facility] [address] [place], [address] BUN/CRE 16.6 RATIO Normal 10-20 [facility] Comment on above: Order Comment: Comme nts: NPO at [place] prior to lipid panel Performed By: #### L 500.4100, L501.5200, L501.2300, L100.0100, L500.4050, L501.9520 ####[facility] [address] [place], [address] CA,Total 9.1 mg/dL Normal 8.5-10.1 [facility] Comment on above: Order Comment: Comme nts: NPO at [place] prior to lipid panel Performed By: #### L 500.4100, L501.5200, L501.2300, L100.0100, L500.4050, L501.9520 ####[facility] [address] [place], [address] Chloride [Moles/Vol] 108 mmol/L High 98-107 [facility] Comment on above: Order Comment: Comme nts: NPO at [place] prior to lipid panel Performed By: #### L 500.4100, L501.5200, L501.2300, L100.0100, L500.4050, L501.9520 ####[facility] [address] [place], [address] CO2 [Moles/Vol] 24.0 mmol/L Normal 21.0-32.0 [facility] Comment on above: Order Comment: Comme nts: NPO at [place] prior to lipid panel Performed By: #### L 500.4100, L501.5200, L501.2300, L100.0100, L500.4050, L501.9520 ####[facility] [address] [place], [address] Creatinine [Mass/Vol] 0.84 mg/dL Normal 0.55-1.02 [facility] Comment on above: Order Comment: Comme nts: NPO at [place] prior to lipid panel Result Comment: The validity of the calculated GFR GFRAA in patients over 70 years has not been determined. Clinical correlation is essential. Performed By: #### L 500.4100, L501.5200, L501.2300, L100.0100, L500.4050, L501.9520 ####[facility] [address] [place], [address] ECRCL 58.85 ml/min Normal [facility] Comment on above: Order Comment: Comme nts: NPO at [place] prior to lipid panel Performed By: #### L 500.4100, L501.5200, L501.2300, L100.0100, L500.4050, L501.9520 ####[facility] [address] [place], [address] EST GFR - AA 85 mL/min Normal >60 [facility] Comment on above: Order Comment: Comme nts: NPO at [place] prior to lipid panel Result Comment: Afri can [place] GFR Calc Performed By: #### L 500.4100, L501.5200, L501.2300, L100.0100, L500.4050, L501.9520 ####[facility] [address] [place], [address] GAP 6 Normal 5-15 [facility] Comment on above: Order Comment: Comme nts: NPO at [place] prior to lipid panel Performed By: #### L 500.4100, L501.5200, L501.2300, L100.0100, L500.4050, L501.9520 ####[facility] [address] [place], [address] GFR/1.73 sq M.predicted among non-blacks MDRD (S/P/Bld) [Vol rate/Area] 70 mL/min/{1.73_m2} Normal >60 [facility] Comment on above: Order Comment: Comme nts: NPO at [place] prior to lipid panel Result Comment: Non- GFR Calc Performed By: #### L 500.4100, L501.5200, L501.2300, L100.0100, L500.4050, L501.9520 ####[facility] [address] [place], [place], [phone] Globulin (S) [Mass/Vol] 2.7 g/dL Normal 2.2-4.2 [facility] Comment on above: Order Comment: Comme nts: NPO at [place] prior to lipid panel Performed By: #### L 500.4100, L501.5200, L501.2300, L100.0100, L500.4050, L501.9520 ####[facility] [address] [place], [address] Glucose [Mass/Vol] 104 mg/dL Normal 74-106 [facility] Comment on above: Order Comment: Comme nts: NPO at [place] prior to lipid panel Result Comment: Fast ing Glucose result from 100 to 125 mg/dL suggests IMPAIRED HOMEOSTASIS per A.D.A. criteria. Performed By: #### L 500.4100, L501.5200, L501.2300, L100.0100, L500.4050, L501.9520 ####[facility] [address] [place], [place], [phone] Potassium [Moles/Vol] 3.8 mmol/L Normal 3.5-5.1 [facility] Comment on above: Order Comment: Commskyla nts: NPO at [place] prior to lipid panel Performed By: #### L 500.4100, L501.5200, L501.2300, L100.0100, L500.4050, L501.9520 ####[facility] [address] [place], [address] Sodium [Moles/Vol] 138 mmol/L Normal 136-145 [facility] Comment on above: Order Comment: Comme nts: NPO at [place] prior to lipid panel Performed By: #### L 500.4100, L501.5200, L501.2300, L100.0100, L500.4050, L501.9520 ####[facility] [address] [place], [address] T PROT 6.0 g/dL Low 6.4-8.2 [facility] Comment on above: Order Comment: Comme nts: NPO at [place] prior to lipid panel Performed By: #### L 500.4100, L501.5200, L501.2300, L100.0100, L500.4050, L501.9520 ####[facility] [address] [place], [address] Urea nitrogen [Mass/Vol] 14 mg/dL Normal 7-18 [facility] Comment on above: Order Comment: Comme nts: NPO at [place] prior to lipid panel Performed By: #### L 500.4100, L501.5200, L501.2300, L100.0100, L500.4050, L501.9520 ####[facility] [address] [place], [address] Eosinophil percentageOrdered By: Chelsea Kaufman on 04-02-2024 Eosinophils/100 WBC (Bld) 1.6 % 0-5 [facility] Erythrocyte distribution wid th ratioOrdered By: Chelsea Kaufman on 04-02-2024 Erythrocyte distribution width (RBC) [Ratio] 12.7 % 11.6-14.6 [facility] Erythrocyte distribution wid th standard deviationOrdered By: Chelsea Kaufman on 04-02-2024 Erythrocyte distribution width (RBC) [Ratio] 41.7 fl 35.1-43.9 [facility] Glomerular filtration rate ( GFR) estimationOrdered By: Chelsea Kaufman on 04-02-2024 GFR/1.73 sq M.predicted among non-blacks MDRD (S/P/Bld) [Vol rate/Area] 70 mL/min/{1.73_m2} >60 [facility] Comment on above: Non- GFR Calc Glucose measurementOrdered B y: Chelsea Kaufman on 04-02-2024 Glucose [Mass/Vol] 104 mg/dL 74-106 [facility] Comment on above: Fasting Glucose resu lt from 100 to 125 mg/dL suggests IMPAIRED HOMEOSTASIS per A.D.A. criteria. Hematocrit Auto (Bld) [Volum e fraction]Ordered By: Chelsea Kaufman on 04-02-2024 Hematocrit (Bld) [Volume fraction] 37.2 % 37-47 [facility] Hemoglobin measurementOrdere d By: Chelsea Kaufman on 04-02-2024 Hemoglobin (Bld) [Mass/Vol] 12.2 g/dL 12.0-15.0 [facility] High density lipoprotein (HD L) measurementOrdered By: Chelsea Kaufman on 04-02-2024 Cholesterol in HDL [Mass/Vol] 64 mg/dL >40 [facility] Comment on above: The drugs N-Acetylcy steine and Metamizole may falsely depress this assay. Reference Range HDL <40 mg/dL Low HDL Cholesterol HDL >or= 60 mg/dL High HDL Cholesterol Immature granulocytes/100 WB C Auto (Bld)Ordered By: Chelsea Kaufman on 04-02-2024 Immature granulocytes/100 WBC (Bld) 0.300 % 0.0-0.9 [facility] Comment on above: IG% - Immature Granu locytes (promyelocytes, myelocytes and metamyelocytes) > 1% indicates that a LEFT SHIFT is Present. Laboratory - Chemistry and C hemistry - challengeOrdered By: Chelsea Kaufman on 04-02-2024 AST [Catalytic activity/Vol] 13 U/L Low 15-37 [facility] Lipid Profileon 04-02-2024 Cholesterol [Mass/Vol] 214 mg/dL High 200 [facility] Comment on above: Order Comment: Comme nts: NPO at [place] prior to lipid panel Result Comment: <200 mg/dL Desirable 200-240 mg/dL Borderline >240 mg/dL High Risk Performed By: #### L 500.4100, L501.5200, L501.2300, L100.0100, L500.4050, L501.9520 ####[facility] [address] [place], [address] Cholesterol in HDL [Mass/Vol] 64 mg/dL Normal [facility] Comment on above: Order Comment: Comme nts: NPO at [place] prior to lipid panel Result Comment: The drugs N-Acetylcysteine and Metamizole may falsely depress this assay. Reference Range HDL <40 mg/dL Low HDL Cholesterol HDL >or= 60 mg/dL High HDL Cholesterol Performed By: #### L 500.4100, L501.5200, L501.2300, L100.0100, L500.4050, L501.9520 ####[facility] [address] [place], [address] Cholesterol in LDL [Mass/Vol] 134 mg/dL High 0-130 [facility] Comment on above: Order Comment: Comme nts: NPO at [place] prior to lipid panel Performed By: #### L 500.4100, L501.5200, L501.2300, L100.0100, L500.4050, L501.9520 ####[facility] [address] [place], [address] Cholesterol in VLDL [Mass/Vol] 16 mg/dL Normal 5-40 [facility] Comment on above: Order Comment: Comme nts: NPO at [place] prior to lipid panel Performed By: #### L 500.4100, L501.5200, L501.2300, L100.0100, L500.4050, L501.9520 ####[facility] [address] [place], [address] Triglyceride [Mass/Vol] 82 mg/dL Normal [facility] Comment on above: Order Comment: Comme nts: NPO at [place] prior to lipid panel Result Comment: The drugs N-Acetylcysteine and Metamizole may falsely depress this assay. Serum Triglycerides Reference Interval Normal <150 mg/dL Borderline high 150 - 199 mg/dL High 200 - 499 mg/dL Very High > or = 500 mg/dL Performed By: #### L 500.4100, L501.5200, L501.2300, L100.0100, L500.4050, L501.9520 ####[facility] [address] [place], [address] Low density lipoprotein (LDL ) cholesterol measurementOrdered By: Chelsea Kaufman on 04-02-2024 Cholesterol in LDL [Mass/Vol] 134 mg/dL High 0-130 [facility] MCV (mean corpuscular volume ) determinationOrdered By: Chelsea Kaufman on 04-02-2024 MCV (RBC) [Entitic vol] 89.6 fL 81-99 [facility] MR/CON.PCM.NEon 04-02-2024 MR/CON.PCM.NE [facility] Medical Records Department [address] [place] [address] Consultation - Neurology 04/02/24 1416 MR#: [id number] Acct: [id number] Name: HANNAH LIGHT Rep #: [id number] : 1950 74 From: Charles Mims MD PCP: Mayra Escobedo NP-Nena Status:ADM PAYAL Location: [place] [address] Assessment and Plan: Stroke Assessment/Plan HANNAH LIGHT, is a 74 F w/ neurocardiogenic syncope and leaky heart valve who presents with an episode of syncope. Episode is a little unclear as patient states she doesnt remember event but describes the episodes, maybe there is a period of loss time that she isnt aware of as bystanders did act quickly to sit her down. As she remembers, she was at work, standing at the [employer] when she suddenly felt clammy, sweaty, sob and her complete vision went black, sounds became muffled but she could hear and remembers people tryign to get her to sit down and lay down. This resolved. Her prior episodes of neurocardiogenic syncope are different in which she feels them come on, feels hot and lightheaded. CTH was done which showed possible issue on her right occipital lobe. CTAs neg. MRI brain neg. She still complains of left eye monocular blurriness but no field cut. Her episode of bilateral vision loss and some predromal symptoms do not appear to be a stroke as these are atypical stroke symptoms that dont localize well to one vascular territory. Her current monocular vision issue of blurry vision also does not localize to brain and imaging neg. Her presenting episode appears to be presyncope/syncope and maybe a variation of her neurocardiogenic syncope, she does have hx of migraines and could be an atypical migraine phenomenon. Follow up with optho if left eye cont to be blurry. NO further stroke workup as my impression is NOT stroke and presyncope/syncope. Recommend TTE. f/u with pcp and provider. Please reachout for any questions or concerns. Stroke to sign off. HPI Consult Data Date of Consult: 04/02/24 HPI Narrative HPI Narrative: HANNAH LIGHT, is a 74 F w/ neurocardiogenic syncope and leaky heart valve who presents with an episode of syncope. Episode is a little unclear as patient states she doesnt remember event but describes the episodes, maybe there is a period of loss time that she isnt aware of as bystanders did act quickly to sit her down. As she remembers, she was at work, standing at the [employer] when she suddenly felt clammy, sweaty, sob and her complete vision went black, sounds became muffled but she could hear and remembers people tryign to get her to sit down and lay down. This resolved. Her prior episodes of neurocardiogenic syncope are different in which she feels them come on, feels hot and lightheaded. CTH was done which showed possible issue on her right occipital lobe. CTAs neg. MRI brain neg. She still complains of left eye monocular blurriness but no field cut. Her episode of bilateral vision loss and some predromal symptoms do not appear to be a stroke as these are atypical stroke symptoms that dont localize well to one vascular territory. Her current monocular vision issue of blurry vision also does not localize to brain and imaging neg. Her presenting episode appears to be presyncope/syncope and maybe a variation of her neurocardiogenic syncope, she does have hx of migraines and could be an atypical migraine phenomenon. Follow up with optho if left eye cont to be blurry. NO further stroke workup as my impression is NOT stroke and presyncope/syncope. Recommend TTE. f/u with pcp and provider. Please reachout for any questions or concerns. Stroke to sign off. [facility] Medical History Neurocardiogenic syncope GERD (gastroesophageal reflux disease) Primary osteoarthritis, left shoulder Left shoulder pain Wears glasses Post-menopausal History of Clostridium difficile infection Depression Anxiety History of steroid therapy Thyroid disease Rheumatoid arthritis Arthritis High cholesterol Back pain Injury of head and neck History of hiatal hernia Gastric reflux Non-smoker Shortness of breath on exertion History of pain when walking Cardiology follow-up encounter Hypertension Home Medications ???Medication ???Instructions ???Recorded ???Last Taken ???Type levomefolate 7.5 mg-algal oil 15 mg PO DAILY NERVES 07/23/1306/14 History 90.314 mg capsule (Deplin (algal oil)) amlodipine 10 mg tablet 10 mg PO DAILY BP #30 tabs 8 04/01/24 Rx ergocalciferol (vitamin D2) 1,250 50,000 unit PO .2X WEEK SUPPLEMEN T 05/31/23 03/31/24 History mcg (50,000 unit) capsule (Vitamin D2) ferrous sulfate 325 mg (65 mg 325 mg PO .QOD SUPPLEMENT 05/31/23 03/31/24 History iron) tablet levothyroxine 125 mcg capsule 187.5 mcg PO .ily THYROID 05/31/23 02/25/24 Hi (more content not included)... Normal [facility] Magnesiumon 04-02-2024 Magnesium [Mass/Vol] 2.2 mg/dL Normal 1.6-2.6 [facility] Comment on above: Order Comment: Comme nts: NPO at [place] prior to lipid panel Performed By: #### L 501.9985 #### [facility] Laboratory [address] [place], [address] Magnesium measurementOrdered By: Chelsea Kaufman on 04-02-2024 Magnesium [Mass/Vol] 2.2 mg/dL 1.6-2.6 [facility] Mean corpuscular hemoglobin (MCH) determinationOrdered By: Chelsea Kaufman on 04-02-2024 MCH (RBC) [Entitic mass] 29.4 pg 27.0-32.0 [facility] Mean corpuscular hemoglobin concentration (MCHC) determinationOrdered By: Chelsea Kaufman on 04-02-2024 MCHC (RBC) [Mass/Vol] 32.8 g/dL 32-36 [facility] Mean platelet volume determi nationOrdered By: Chelsea Kaufman on 04-02-2024 Platelet mean volume (Bld) [Entitic vol] 10.6 fL 6.2-12.0 [facility] Monocyte percentageOrdered B y: Chelsea Kaufman on 04-02-2024 Monocytes/100 WBC (Bld) 10.6 % High 0-10 [facility] Neutrophil percentageOrdered By: Chelsea Kaufman on 04-02-2024 Neutrophils/100 WBC (Bld) 50.0 % 47-70 [facility] Nucleated red blood cell per centageOrdered By: Chelsea Kaufman on 04-02-2024 Nucleated RBC/100 WBC (Bld) [Ratio] 0 % 0-5 [facility] Phosphoruson 04-02-2024 Phosphate [Mass/Vol] 4.2 mg/dL Normal 2.5-4.9 [facility] Comment on above: Order Comment: Comme nts: NPO at [place] prior to lipid panel Performed By: #### L 500.4100, L501.5200, L501.2300, L100.0100, L500.4050, L501.9520 ####[facility] [address] [place], [place], [id number] Platelet countOrdered By: Simone Kaufman on 04-02-2024 Platelets (Bld) [#/Vol] 207 10*3/uL 150-450 [facility] Potassium measurementOrdered By: Chelsea Kaufman on 04-02-2024 Potassium [Moles/Vol] 3.8 mmol/L 3.5-5.1 [facility] RBC Auto (Bld) [#/Vol]Ordere d By: Chelsea Kaufman on 04-02-2024 RBC (Bld) [#/Vol] 4.15 10*6/uL Low 4.2-5.4 [facility] Serum anion gap measurementO rdered By: Chelsea Kaufman on 04-02-2024 Anion gap [Moles/Vol] 6 mmol/L 5-15 [facility] Serum globulin measurementOr dered By: Chelsea Kaufman on 04-02-2024 Globulin (S) [Mass/Vol] 2.7 g/dL 2.2-4.2 [facility] Serum or plasma alanine larson otransferase (ALT) measurementOrdered By: Chelsea Kaufman on 04-02-2024 ALT [Catalytic activity/Vol] 23 U/L 13-56 [facility] Serum or plasma albumin josh urement (mass/volume)Ordered By: Chelsea Kaufman on 04-02-2024 Albumin [Mass/Vol] 3.3 g/dL 3.2-5.0 [facility] Serum or plasma alkaline sumeet sphatase measurementOrdered By: Chelsea Kaufman on 04-02-2024 ALP [Catalytic activity/Vol] 59 U/L 45-117 [facility] Serum or plasma calcium josh urement (mass/volume)Ordered By: Chelsea Kaufman on 04-02-2024 Calcium [Mass/Vol] 9.1 mg/dL 8.5-10.1 [facility] Serum or plasma cholesterol measurement (mass/volume)Ordered By: Chelsea Kaufman on 04-02-2024 Cholesterol [Mass/Vol] 214 mg/dL High <200 [facility] Comment on above: <200 mg/dL Desirable 200-240 mg/dL Borderline >240 mg/dL High Risk Serum or plasma creatinine m easurement (mass/volume)Ordered By: Chelsea Kaufman on 04-02-2024 Creatinine [Mass/Vol] 0.84 mg/dL 0.55-1.02 [facility] Comment on above: The validity of the calculated GFR & GFRAA in patients over 70 years has not been determined. Clinical correlation is essential. Serum or plasma thyroid stim ulating hormone (TSH) measurement (units/volume)Ordered By: Chelsea Kaufman on 04-02-2024 TSH Qn 6.830 uIU/mL High 0.358-3.74 0 [facility] Serum or plasma urea nitroge n measurement (mass/volume)Ordered By: Chelsea Kaufman on 04-02-2024 Urea nitrogen [Mass/Vol] 14 mg/dL 7-18 [facility] Sodium levelOrdered By: Lexie Kaufman on 04-02-2024 Sodium [Moles/Vol] 138 mmol/L 136-145 [facility] Thyroid Stim Hormone (TSH)on 04-02-2024 TSH 6.830 uIU/mL High 0.358-3.74 0 [facility] Comment on above: Order Comment: Comme nts: NPO at [place] prior to lipid panel Performed By: #### L 501.9985 #### [facility] [address] [facility] [place], [address] Total proteinOrdered By: Nasrin Kaufman on 04-02-2024 Protein [Mass/Vol] 6.0 g/dL Low 6.4-8.2 [facility] Triglycerides measurementOrd ered By: Chelsea Kaufman on 04-02-2024 Triglyceride [Mass/Vol] 82 mg/dL <199 [facility] Comment on above: The drugs N-Acetylcy steine and Metamizole may falsely depress this assay.Serum Triglycerides Reference Interval Normal <150 mg/dL Borderline high 150 - 199 mg/dL High 200 - 499 mg/dL Very High > or = 500 mg/dL Very low density lipoprotein (VLDL) cholesterol measurementOrdered By: Chelsea Kaufman on 04-02-2024 Very low density lipoprotein (VLDL) cholesterol measurement 16 mg/dL 5-40 [facility] White blood cell (WBC) count Ordered By: Chelsea Kaufman on 04-02-2024 WBC (Bld) [#/Vol] 6.1 10*3/uL 4.4-11.0 [facility] 12 Lead EKGon 04-01-2024 12 Lead EKG [facility] [address] [place] [address] 12 Lead EKG 04/01/24 1226 MR#: [id number] Acct: [id number] Name: HANNAH LIGHT Rep #: [id number] : 1950 74 From: Jose Miguel Eng MD Attending Dr: Dr. Moreno Moody DO Status: ADM PAYAL Ordering Dr: Meagan Norman MD Date: 04/01/24 Location: [facility] Sex: F C Admitted: 04/01/24 Test Reason : SYNCOPE Blood Pressure : */* mmHG Vent. Rate : 79 BPM Atrial Rate : 79 BPM P-R Int : 150 ms QRS Dur : 66 ms QT Int : 360 ms P-R-T Axes : 50 35 42 degrees QTcB Int : 412 ms Normal sinus rhythm Normal ECG Confirmed by Jose Miguel Eng ([id number]), newspaper editor BOYD TA ([id number]) on 04/02/2024 10:02:37 AM Referred By: BB/ Confirmed By: Jose Miguel Eng 04/02/241001 Date Jose Miguel Eng MD CC: ELECTRICAL PROSPECTOR-C Mayra Escobedo; Dr. Meagan Norman MD; Dr. Moreno Moody DO Signed Normal [facility] Activated partial thrombopla stin time (aPTT) in platelet poor plasma by coagulation aOrdered By: Meagan Norman on 04-01-2024 aPTT Coag (PPP) [Time] 24.5 s 24.1-36.2 [facility] Basic Metabolic Profile (BMP )on 04-01-2024 BUN/CRE 15.3 RATIO Normal 10-20 [facility] Comment on above: Order Comment: 'TROP ' Serial specimen #1, #2 or #3: 1 Performed By: #### L 501.9985 #### [facility] [address] [place], [place], [id number] CA,Total 9.5 mg/dL Normal 8.5-10.1 [facility] Comment on above: Order Comment: 'TROP ' Serial specimen #1, #2 or #3: 1 Performed By: #### L 501.9985 #### [facility] [address] [place], [address] Chloride [Moles/Vol] 102 mmol/L Normal 98-107 [facility] Comment on above: Order Comment: 'TROP ' Serial specimen #1, #2 or #3: 1 Performed By: #### L 501.9985 #### [facility] [address] [place], [address] CO2 [Moles/Vol] 27.0 mmol/L Normal 21.0-32.0 [facility] Comment on above: Order Comment: 'TROP ' Serial specimen #1, #2 or #3: 1 Performed By: #### L 501.9985 #### [facility] [address] [place], [address] Creatinine [Mass/Vol] 1.31 mg/dL High 0.55-1.02 [facility] Comment on above: Order Comment: 'TROP ' Serial specimen #1, #2 or #3: 1 Result Comment: The validity of the calculated GFR GFRAA in patients over 70 years has not been determined. Clinical correlation is essential. Performed By: #### L 501.9985 #### [facility] [address] [place], [address] ECRCL 38.35 ml/min Normal [facility] Comment on above: Order Comment: 'TROP ' Serial specimen #1, #2 or #3: 1 Performed By: #### L 501.9985 #### [facility] [address] [place], [address] EST GFR - AA 51 mL/min Low >60 [facility] Comment on above: Order Comment: 'TROP ' Serial specimen #1, #2 or #3: 1 Result Comment: Afri can [place] GFR Calc Performed By: #### L 501.9985 #### [facility] [address] [place], [address] GAP 9 Normal 5-15 [facility] Comment on above: Order Comment: 'TROP ' Serial specimen #1, #2 or #3: 1 Performed By: #### L 501.9985 #### [facility] [address] [place], [address] GFR/1.73 sq M.predicted among non-blacks MDRD (S/P/Bld) [Vol rate/Area] 42 mL/min/{1.73_m2} Low >60 [facility] Comment on above: Order Comment: 'TROP ' Serial specimen #1, #2 or #3: 1 Result Comment: Non- GFR Calc Performed By: #### L 501.9985 #### [facility] [address] [place], [address] Glucose [Mass/Vol] 107 mg/dL High 74-106 [facility] Comment on above: Order Comment: 'TROP ' Serial specimen #1, #2 or #3: 1 Result Comment: Fast ing Glucose result from 100 to 125 mg/dL suggests IMPAIRED HOMEOSTASIS per A.D.A. criteria. Performed By: #### L 501.9985 #### [facility] [address] [place], [address] Potassium [Moles/Vol] 3.8 mmol/L Normal 3.5-5.1 [facility] Comment on above: Order Comment: 'TROP ' Serial specimen #1, #2 or #3: 1 Performed By: #### L 501.9985 #### [facility] [address] [place], [address] Sodium [Moles/Vol] 138 mmol/L Normal 136-145 [facility] Comment on above: Order Comment: 'TROP ' Serial specimen #1, #2 or #3: 1 Performed By: #### L 501.9985 #### [facility] [address] [place], [address] Urea nitrogen [Mass/Vol] 20 mg/dL High 7-18 [facility] Comment on above: Order Comment: 'TROP ' Serial specimen #1, #2 or #3: 1 Performed By: #### L 501.9985 #### [facility] [address] [place], [address] BUN Normal 7-18 [facility] Comment on above: Result Comment: Canc elled via OM: Duplicate Order Performed By: #### L 100.0100, L300.3900, L300.4310, L500.2500 #### [facility] [address] [place], [address] BUN/CRE Normal 10-20 [facility] Comment on above: Result Comment: Canc elled via OM: Duplicate Order Performed By: #### L 100.0100, L300.3900, L300.4310, L500.2500 #### [facility] [address] [place], [address] CA,Total Normal 8.5-10.1 [facility] Comment on above: Result Comment: Canc elled via OM: Duplicate Order Performed By: #### L 100.0100, L300.3900, L300.4310, L500.2500 #### [facility] [address] [place], [address] CL Normal 98-107 [facility] Comment on above: Result Comment: Canc elled via OM: Duplicate Order Performed By: #### L 100.0100, L300.3900, L300.4310, L500.2500 #### [facility] [address] [place], [address] CO2 Normal 21.0-32.0 [facility] Comment on above: Result Comment: Canc elled via OM: Duplicate Order Performed By: #### L 100.0100, L300.3900, L300.4310, L500.2500 #### [facility] [address] [place], [address] CREAT,SERUM Normal 0.55-1.02 [facility] Comment on above: Result Comment: Canc elled via OM: Duplicate Order Performed By: #### L 100.0100, L300.3900, L300.4310, L500.2500 #### [facility] [address] [place], [address] EST GFR Normal >60 [facility] Comment on above: Result Comment: Canc elled via OM: Duplicate Order Performed By: #### L 100.0100, L300.3900, L300.4310, L500.2500 #### [facility] [address] [place], [address] EST GFR - AA Normal >60 [facility] Comment on above: Result Comment: Canc elled via OM: Duplicate Order Performed By: #### L 100.0100, L300.3900, L300.4310, L500.2500 #### [facility] [address] [place], [address] GAP Normal 5-15 [facility] Comment on above: Result Comment: Canc elled via OM: Duplicate Order Performed By: #### L 100.0100, L300.3900, L300.4310, L500.2500 #### [facility] [address] [place], [address] GLU Normal 74-106 [facility] Comment on above: Result Comment: Canc elled via OM: Duplicate Order Performed By: #### L 100.0100, L300.3900, L300.4310, L500.2500 #### [facility] [address] [place], [address] Potassium Normal 3.5-5.1 [facility] Comment on above: Result Comment: Canc elled via OM: Duplicate Order Performed By: #### L 100.0100, L300.3900, L300.4310, L500.2500 #### [facility] [address] [place], [address] Basic Metabolic Profile (BMP) Normal 136-145 [facility] Comment on above: Result Comment: Canc elled via OM: Duplicate Order Performed By: #### L 100.0100, L300.3900, L300.4310, L500.2500 #### [facility] [address] [place], [address] Bedside Glucoseon 04-01-2024 FINGERSTICK GLU 104 mg/dL Normal 74-106 [facility] Comment on above: Result Comment: JELENA WOODRUFF OF PATIENT CARE PER NURSING PROTOCOL Performed By: #### L 501.080 #### [facility] [address] [place], [address] Brain without Contraston Brain without Contrast [facility] Imaging Services [address] [place] [address] Brain without Contrast MR#: [id number] Acct: [id number] Name: HANNAH LIGHT Rep #: [id number] : 1950 F 74 From: Veto Titus PCP: Mayra Escobedo, LELAND-C Status: ADM PAYAL Study: Brain without Contrast Date of Exam: 04/01/24 Exam# [id number] Ordering Dr: Chelsea Kaufman DO PROCEDURE: BRAIN WITHOUT CONTRAST REASON FOR EXAM: Neurologic deficit, stroke, vertigo TECHNIQUE: Multisequence multiplanar MR images of the brain were obtained without the administration of intravenous contrast. COMPARISON: 04/01/2024 CTA FINDINGS: No diffusion restriction to suggest acute/subacute ischemia. No evidence of acute intracranial hemorrhage, midline shift or mass effect. Age related atrophy. Scattered periventricular, subcortical and deep white matter hyperintense FLAIR signal foci most consistent with chronic small-vessel ischemic disease. No cortical edema. Globes are intact. Paranasal sinuses and mastoid air cells are clear. MRI/Brain without Contrast IMPRESSION: 1. No acute intracranial abnormality, specifically no evidence of acute/subacute ischemia. 2. Chronic small vessel ischemic changes. Reading Location: [facility] CC: ELECTRICAL PROSPECTOR-C Mayra Escobedo; Dr. Chelsea Kaufman DO Forensic Artist: Signed Normal [facility] CBC W/Diff, Automatedon 02- Absolute Neut Normal 2.0-7.7 [facility] Comment on above: Result Comment: DUPL ICATE Performed By: #### L 501.9985 #### [facility] [address] [place], [address] HCT Normal 37-47 [facility] Comment on above: Result Comment: DUPL ICATE Performed By: #### L 501.9985 #### [facility] [address] [place], [address] HGB Normal 12.0-15.0 [facility] Comment on above: Result Comment: DUPL ICATE Performed By: #### L 501.9985 #### [facility] [address] [place], [address] MCH Normal 27.0-32.0 [facility] Comment on above: Result Comment: DUPL ICATE Performed By: #### L 501.9985 #### [facility] [address] [place], [address] MCHC Normal 32-36 [facility] Comment on above: Result Comment: DUPL ICATE Performed By: #### L 501.9985 #### [facility] [address] [place], [address] MCV Normal 81-99 [facility] Comment on above: Result Comment: DUPL ICATE Performed By: #### L 501.9985 #### [facility] [address] [place], [address] NEUT% Normal 47-70 [facility] Comment on above: Result Comment: DUPL ICATE Performed By: #### L 501.9985 #### [facility] [address] [place], [address] PLT Normal 150-450 [facility] Comment on above: Result Comment: DUPL ICATE Performed By: #### L 501.9985 #### [facility] [address] [place], [address] RBC Normal 4.2-5.4 [facility] Comment on above: Result Comment: DUPL ICATE Performed By: #### L 501.9985 #### [facility] [address] [place], [address] RDW CV Normal 11.6-14.6 [facility] Comment on above: Result Comment: DUPL ICATE Performed By: #### L 501.9985 #### [facility] [address] [place], [address] RDW SD Normal 35.1-43.9 [facility] Comment on above: Result Comment: DUPL ICATE Performed By: #### L 501.9985 #### [facility] [address] [place], [address] WBC Normal 4.4-11.0 [facility] Comment on above: Result Comment: DUPL ICATE Performed By: #### L 501.9985 #### [facility] [address] [place], [address] Absolute Lymph 2.09 X10 3/uL Normal 0.83-4.51 [facility] Comment on above: Performed By: #### L 501.9985 #### [facility] [address] [place], [address] Absolute Neut 4.3 X10 3/uL Normal 2.0-7.7 [facility] Comment on above: Performed By: #### L 501.9985 #### [facility] [address] [place], [address] Basophils/100 WBC (Bld) 0.3 % Normal 0-1 [facility] Comment on above: Performed By: #### L 501.9985 #### [facility] [address] [place], [address] Eosinophils/100 WBC (Bld) 0.8 % Normal 0-5 [facility] Comment on above: Performed By: #### L 501.9985 #### [facility] [address] [place], [address] Erythrocyte distribution width (RBC) [Ratio] 12.6 % Normal 11.6-14.6 [facility] Comment on above: Performed By: #### L 501.9985 #### [facility] [address] [place], [address] Hematocrit (Bld) [Volume fraction] 40.3 % Normal 37-47 [facility] Comment on above: Performed By: #### L 501.9985 #### [facility] [address] [place], [address] Hemoglobin (Bld) [Mass/Vol] 13.6 g/dL Normal 12.0-15.0 [facility] Comment on above: Performed By: #### L 501.9985 #### [facility] [address] [place], [address] IG% 0.600 Normal 0.0-0.9 [facility] Comment on above: Result Comment: IG% - Immature Granulocytes (promyelocytes, myelocytes and metamyelocytes) > 1% indicates that a LEFT SHIFT is Present. Performed By: #### L 501.9985 #### [facility] [address] [place], [address] Lymphocytes/100 WBC (Bld) 29.5 % Normal 19-41 [facility] Comment on above: Performed By: #### L 501.9985 #### [facility] [address] [place], [address] MCH (RBC) [Entitic mass] 29.9 pg Normal 27.0-32.0 [facility] Comment on above: Performed By: #### L 501.9985 #### [facility] [address] [place], [address] MCHC (RBC) [Mass/Vol] 33.7 g/dL Normal 32-36 [facility] Comment on above: Performed By: #### L 501.9985 #### [facility] [address] [place], [address] MCV (RBC) [Entitic vol] 88.6 fL Normal 81-99 [facility] Comment on above: Performed By: #### L 501.9985 #### [facility] [address] [place], [address] Monocytes/100 WBC (Bld) 8.5 % Normal 0-10 [facility] Comment on above: Performed By: #### L 501.9985 #### [facility] [address] [place], [address] Neutrophils/100 WBC (Bld) 60.3 % Normal 47-70 [facility] Comment on above: Performed By: #### L 501.9985 #### [facility] [address] [place], [address] Nucleated RBC (Bld) [#/Vol] 0 10*3/uL Normal 0-5 [facility] Comment on above: Performed By: #### L 501.9985 #### [facility] [address] [place], [address] Platelet mean volume (Bld) [Entitic vol] 10.4 fL Normal 6.2-12.0 [facility] Comment on above: Performed By: #### L 501.9985 #### [facility] [address] [place], [address] Platelets (Bld) [#/Vol] 254 10*3/uL Normal 150-450 [facility] Comment on above: Performed By: #### L 501.9985 #### [facility] [address] [place], [address] RBC (Bld) [#/Vol] 4.55 10*6/uL Normal 4.2-5.4 [facility] Comment on above: Performed By: #### L 501.9985 #### [facility] [address] [place], [address] RDW SD 41.3 fl Normal 35.1-43.9 [facility] Comment on above: Performed By: #### L 501.9985 #### [facility] [address] [place], [address] WBC (Bld) [#/Vol] 7.1 10*3/uL Normal 4.4-11.0 [facility] Comment on above: Performed By: #### L 501.9985 #### [facility] [address] [place], [address] Absolute Neut Normal 2.0-7.7 [facility] Comment on above: Result Comment: Canc elled via OM: Duplicate Order Performed By: #### L 100.0100, L300.3900, L300.4310, L500.2500 #### [facility] [address] [place], [address] HCT Normal 37-47 [facility] Comment on above: Result Comment: Canc elled via OM: Duplicate Order Performed By: #### L 100.0100, L300.3900, L300.4310, L500.2500 #### [facility] [address] [place], [address] HGB Normal 12.0-15.0 [facility] Comment on above: Result Comment: Canc elled via OM: Duplicate Order Performed By: #### L 100.0100, L300.3900, L300.4310, L500.2500 #### [facility] [address] [place], [address] MCH Normal 27.0-32.0 [facility] Comment on above: Result Comment: Canc elled via OM: Duplicate Order Performed By: #### L 100.0100, L300.3900, L300.4310, L500.2500 #### [facility] [address] [place], [address] MCHC Normal 32-36 [facility] Comment on above: Result Comment: Canc elled via OM: Duplicate Order Performed By: #### L 100.0100, L300.3900, L300.4310, L500.2500 #### [facility] [address] [place], [address] MCV Normal 81-99 [facility] Comment on above: Result Comment: Canc elled via OM: Duplicate Order Performed By: #### L 100.0100, L300.3900, L300.4310, L500.2500 #### [facility] [address] [place], [address] NEUT% Normal 47-70 [facility] Comment on above: Result Comment: Canc elled via OM: Duplicate Order Performed By: #### L 100.0100, L300.3900, L300.4310, L500.2500 #### [facility] [address] [place], [address] PLT Normal 150-450 [facility] Comment on above: Result Comment: Canc elled via OM: Duplicate Order Performed By: #### L 100.0100, L300.3900, L300.4310, L500.2500 #### [facility] [address] [place], [address] RBC Normal 4.2-5.4 [facility] Comment on above: Result Comment: Canc elled via OM: Duplicate Order Performed By: #### L 100.0100, L300.3900, L300.4310, L500.2500 #### [facility] [address] [place], [address] RDW CV Normal 11.6-14.6 [facility] Comment on above: Result Comment: Canc elled via OM: Duplicate Order Performed By: #### L 100.0100, L300.3900, L300.4310, L500.2500 #### [facility] [address] [place], [address] RDW SD Normal 35.1-43.9 [facility] Comment on above: Result Comment: Canc elled via OM: Duplicate Order Performed By: #### L 100.0100, L300.3900, L300.4310, L500.2500 #### [facility] [address] [place], [address] WBC Normal 4.4-11.0 [facility] Comment on above: Result Comment: Canc elled via OM: Duplicate Order Performed By: #### L 100.0100, L300.3900, L300.4310, L500.2500 #### [facility] [address] [place], [address] Chest 1 View (Portable)on Chest 1 View (Portable) [facility] Imaging Services [address] [place] [address] Chest 1 View (Portable) MR#: [id number] Acct: [id number] Name: HANNAH LIGHT Rep #: [id number] : 1950 F 74 From: Cricket Khanna PCP: REBECCA Wallace Status: PRE ER Study: Chest 1 View (Portable) Date of Exam: 04/01/24 Exam# [id number] Ordering Dr: Meagan Norman MD PROCEDURE: CHEST 1 VIEW (PORTABLE) REASON FOR EXAM: Stroke. TECHNIQUE: Frontal view of the chest. COMPARISON: None. FINDINGS: The heart size is normal. The lungs are clear. No pleural effusion or pneumothorax is seen. Asymmetric left glenohumeral joint degenerative changes are seen. No acute osseous changes are seen. RAD/Chest 1 View (Portable) IMPRESSION: No evidence of acute cardiopulmonary disease. Negative examination. Reading Location: [address] CC: REBECCA Escobedo; Dr. Meagan Norman MD Forensic Artist: Signed Normal [facility] Echo Completeon 04-01-2024 Echo Complete [facility] Services [address] [place] [address] Echo Complete 04/02/24 0905 MR#: [id number] Acct: [id number] Name: HANNAH LIGHT Rep #: [id number] : 1950 74 From: Artis Lopez MD Attending Dr: Dr. Moreno Moody, Status: ADM PAYAL Ordering Dr: Chelsea Kaufman DO Date: 04/01/24 Location: U Sex: F C Admitted: 04/01/24 Reason For Study Reason For Study: TIA/Stroke Procedure This was a 2D Doppler, Color Flow transthoracic echocardiogram. Exam performed portable in patient room. Left Ventricle Normal LV size. The estimated ejection fraction is 60 %. No evidence for diastolic dysfunction. No regional wall motion abnormalities noted. Right Ventricle Normal RV size. Normal systolic function. Atria The left and right atria are normal. No doppler evidence for ASD. Mitral Valve There is moderate mitral annular calcification. There is no mitral valve stenosis. Trivial mitral valve insufficiency. Tricuspid Valve There is no tricuspid stenosis. Unable to estimate RV systolic pressure due to insufficient tricuspid regurgitant envelope. Trivial tricuspid valve insufficiency. Aortic Valve Trisinus/trileaflet aortic valve. There is no aortic stenosis. No aortic valve insufficiency. Pulmonic Valve There is no pulmonic valvular stenosis. Trivial pulmonic valve insufficiency. Great Vessels Normal aortic root. Pericardium/Pleural No pericardial effusion. MMode/2D Measurements Calculations LVIDd: 3.5 cm IVSd: 0.86 cm Ao root diam: 3.1 cm LVIDs: 2.0 cm LVPWd: 1.1 cm RVDd: 2.9 cm FS: 43.4 % _ LAV(MOD-bp): 23.7 ml LVAd ap4: 18.5 cm2 SV(MOD-sp4): 27.6 ml LAV(MOD-bp) Indexed: 12.7 ml/m2 LVLd ap4: 6.8 cm SI(MOD-sp4): 14.9 ml/m2 LAV(MOD-sp2): 11.9 ml EDV(MOD-sp4): 40.8 ml LAV(MOD-sp4): 42.7 ml EDV(sp4-el): 42.6 ml LVAs ap4: 9.0 cm2 LVLs ap4: 5.2 cm ESV(MOD-sp4): 13.2 ml ESV(sp4-el): 13.1 ml EF(MOD-sp4): 67.6 % EF(sp4-el): 69.3 % _ SV(sp4-el): 29.5 ml LA A4 area: 16.0 cm2 LA dimension(2D): 3.4 cm _ RA A4 area: 7.4 cm2 Time Measurements MV dec time: 0.25 sec Doppler Measurements Calculations MV E max perez: 72.3 cm/sec Lat Peak E' Perez: 7.3 cm/sec Med Peak E' Perez: 7.8 cm/sec MV A max perez: 106.8 cm/sec E/E' lat: 10.0 E/E' med: 9.3 MV E/A: 0.68 _ Ao V2 max: 137.3 cm/sec LV V1 max: 117.0 cm/sec MV dec slope: 291.4 cm/sec2 Ao max P.5 mmHg LV V1 max P.5 mmHg Ao V2 mean: 105.0 cm/sec Ao mean P.6 mmHg Ao V2 VTI: 31.8 cm _ PA V2 max: 83.1 cm/sec TR max perez: 252.0 cm/sec TR max P.4 mmHg ECHO/Echo Complete Interpretation Summary The estimated ejection fraction is 60 %. No evidence for diastolic dysfunction. Trivial mitral valve insufficiency. Ordering Physician: Chelsea Kaufman Referring Physician: Mayra Escobedo Performed By: Ivy Leal, RDCS, RVT 04/02/24 1446 Date Artis Lopez MD CC: ELECTRICAL PROSPECTOR-C Mayra Escobedo; Dr. Moreno Moody DO; Dr. Chelsea Kaufman DO Date Dictated: 04/02/24904 Date Transcribed: 04/02/241445 Forensic Artist: Signed Normal [facility] Emergency Department Summary on 04-01-2024 Emergency Department Summary [facility] Medical Records Department [address] [place] [address] Emergency Department Summary 04/01/24 MR#: [id number] Acct: [id number] Name: HANNAH LIGHT Rep #: [id number] : 1950 74 From: Meagan Norman MD PCP: REBECCA Wallace Status:REG ER Location: ED HPI History of Present Illness Chief Complaint: Syncope Informant: patient Narrative Narrative: Patient was standing at work when she began to feel like the room was spinning. She states she had blurry vision and then felt like the room went black. She states she was still hearing people talking. She was lowered to the floor. She did not hit her head. She did not lose consciousness. Denies chest pain. States she feels that she has difficulty getting words out. She has history of vertigo and syncope but states this feels different than her previous symptoms. She is on aspirin daily. Prior similar symptoms: No Recent Illness/Hospitalization: No PFSH PFSH Medical History GERD (gastroesophageal reflux disease) Primary osteoarthritis, left shoulder Left shoulder pain Wears glasses Post-menopausal History of Clostridium difficile infection Depression Anxiety History of steroid therapy Thyroid disease Rheumatoid arthritis Arthritis High cholesterol Back pain Injury of head and neck History of hiatal hernia Gastric reflux Non-smoker Shortness of breath on exertion History of pain when walking Cardiology follow-up encounter Hypertension Home Medications ???Medication ???Instructions ???Recorded ???Last Taken ???Type levomefolate 7.5 mg-algal oil 15 mg PO DAILY NERVES 07/23/1306/14 History 90.314 mg capsule (Deplin (algal oil)) amlodipine 10 mg tablet 10 mg PO DAILY BP #30 tabs 8 02/25/24 Rx ergocalciferol (vitamin D2) 1,250 50,000 unit PO .2X WEEK SUPPLEMEN T 05/31/23 02/25/24 History mcg (50,000 unit) capsule (Vitamin D2) ferrous sulfate 325 mg (65 mg 325 mg PO .QOD SUPPLEMENT 05/31/23 02/25/24 History iron) tablet levothyroxine 125 mcg capsule 187.5 mcg PO DAILY THYROID 4 02/25/24 History levothyroxine 125 mcg tablet 125 mcg PO MOTUWETHFRSA THYROID 06/14/23 History losartan 25 mg tablet 25 mg PO DAILY BP 05/31/23 5 History acetaminophen 500 mg tablet 1,000 mg (2 x 500 mg) PO TID #0 02/25/24 Rx tabs aspirin 81 mg chewable tablet 81 mg PO BIDCM 30 days #60 tabs 02/25/24 Rx chlorthalidone 25 mg tablet 25 mg PO DAILY 03/28/24 Unknown Hi story lorazepam 0.5 mg tablet 0.5 mg PO BID PRN anxiety 03/28/24 Unknown History meclizine 25 mg tablet 25 mg PO 4X/DAY PRN dizziness 08/14 Unknown History pantoprazole 40 mg tablet,delayed 40 mg PO QDAY 03/28/24 Unknown Hi story release venlafaxine 37.5 mg 37.5 mg PO QDAY 03/28/24 Unknown H istory capsule,extended release 24 hr Allergy/AdvReac Type Severity Reaction Status Date / Time albuterol Allergy Swelling Verified 04/01/24 12:28 lidocaine (From Lidoderm) Allergy Hives Verified 04/01/24 12:28 Family History Brother Kidney disease Myocardial infarction Brother CAD (coronary artery disease) Myocardial infarction Mother Hypertension Thyroid disorder Father Myocardial infarction Brain aneurysm Other Heart disease Surgical History Hx of arthroscopic knee surgery Hx of surgical procedure History of carpal tunnel surgery of right wrist Hx of tubal ligation History of laparoscopic cholecystectomy Hx of appendectomy History of hip replacement Total knee replacement status Social History household members: spouse Smoking Status: Never smoker ROS ROS ED Constitutional Constitutional ED: Denies fever(s) Eyes Eyes: Denies change in vision ENT ENT ED: Denies rhinorrhea or sore throat Cardiovascular Cardiovascular: Denies chest pain or palpitations Respiratory/Chest Respiratory/Chest: Denies cough or dyspnea Gastrointestinal Gastrointestinal: Denies abdominal pain, diarrhea, nausea or vomiting Genitourinary Genitourinary ED: Denies dysuria Musculoskeletal Musculoskeletal: Denies myalgias Integumentary Denies rash Neurologic Neurologic: Reports other Details: vision changes, vertigo, difficulty with speech ; Denies headache(s) Psychiatric Psychiatric: Denies suicidal thoughts EXAM Physical Exam Const Vital Signs: 04/01/24 12:24 04/01/24 12:38 04/01/24 12:59 Temperature 97.6 F L Temperature Source Oral Pulse Rate 81 Pulse Rate [Lying] Pulse Rate [Sitting (for 1 minute prior to obtaining)] (more content not included)... Normal [facility] Glucose measurement at [facility] deOrdered By: ED PROVIDER on 04-01-2024 Glucose [Mass/Vol] 104 mg/dL 74-106 [facility] Comment on above: MANAGEMENT OF PATIEN T CARE PER NURSING PROTOCOL H AND P Exam - [place] 04-01-2024 H&P Exam - Hospitalist [facility] Medical Records Department [address] [place] [address] H P Exam - Hospitalist 04/01/24 1518 MR#: [id number] Acct: [id number] Name: HANNAH LIGHT Rep #: [id number] : 1950 74 From: Chelsea Kaufman DO PCP: REBECCA Wallace Status:ADM PAYAL Location: [place] [address] HPI - General General Date of Admission: 04/01/24 Date of Service: 04/01/24 Chief Complaint: Ataxia/Vertigo HPI Narrative HANNAH LIGHT, is a 74 F who presented to the emergency department at [facility] on 03/29/2024 with a chief complaint of presyncope. 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 She noted blurred vision and then felt like the room went black however she could still hear people talking. She was lowered to the floor and had no injury. She never had loss of consciousness. She had no chest pain or shortness of breath. She did feel like she was having trouble getting her words out but did not feel that they were dysarthric. She does have a history of vertigo and syncope however stated this episode felt different from her previous episodes. At the time my evaluation she felt that most of her symptoms were resolved but she was just very fatigued at that time. She did complain of some mild blurred vision in her left eye but no visual field cut. Vital signs on presentation showed a temperature of 97.6, heart rate 81, respiratory 20, blood pressure initially 199/87 with pulse ox of 99% on room air. Repeat blood pressure was 174/78. CBC was unremarkable. Coags were normal. Chemistry panel shows mild NOAH with a serum creatinine of 1.31 and a baseline of 0.7-0.9. Glucose was noted to be elevated at 107. Troponin was normal. Chest x-ray is unremarkable. EKG was sinus rhythm with no ST-T wave changes concerning for acute ischemia. CT of the brain was read as findings suggestive of early ischemic changes in the right posterior medial aspect of the right occipital lobe. CTA of the head and neck showed minimal plaque in the right carotid artery, left carotid artery stenosis between 50 and 60% and normal vertebrals with no LVO. Neurology was consulted by the emergency department and they recommend admission for stroke rule out but felt that her presentation was atypical for stroke. NIH of 0 at the time of their evaluation. [facility] Medical History Neurocardiogenic syncope GERD (gastroesophageal reflux disease) Primary osteoarthritis, left shoulder Left shoulder pain Wears glasses Post-menopausal History of Clostridium difficile infection Depression Anxiety History of steroid therapy Thyroid disease Rheumatoid arthritis Arthritis High cholesterol Back pain Injury of head and neck History of hiatal hernia Gastric reflux Non-smoker Shortness of breath on exertion History of pain when walking Cardiology follow-up encounter Hypertension Home Medications ???Medication ???Instructions ???Recorded ???Last Taken ???Type levomefolate 7.5 mg-algal oil 15 mg PO DAILY NERVES 07/23/1306/14 History 90.314 mg capsule (Deplin (algal oil)) amlodipine 10 mg tablet 10 mg PO DAILY BP #30 tabs 8 04/01/24 Rx ergocalciferol (vitamin D2) 1,250 50,000 unit PO .2X WEEK SUPPLEMEN T 05/31/23 03/31/24 History mcg (50,000 unit) capsule (Vitamin D2) ferrous sulfate 325 mg (65 mg 325 mg PO .QOD SUPPLEMENT 05/31/23 03/31/24 History iron) tablet levothyroxine 125 mcg capsule 187.5 mcg PO .mondaydaily THYROID 05/31/23 02/25/24 History levothyroxine 125 mcg tablet 125 mcg PO MOTUWETHFRSA THYROID 06/14/23 History losartan 25 mg tablet 25 mg PO DAILY BP 05/31/23 5 History chlorthalidone 25 mg tablet 25 mg PO QHS cholesterol 03/28/24 03/31/24 History lorazepam 0.5 mg tablet 0.5 mg PO BID PRN anxiety 03/28/24 Unknown History meclizine 25 mg tablet 25 mg PO 4X/DAY PRN dizziness 08/14 Unknown History pantoprazole 40 mg tablet,delayed 40 mg PO QDAY 03/28/24 04/01/24 H istory release venlafaxine 37.5 mg 37.5 mg PO QDAY 03/28/24 Unknown H istory capsule,extended release 24 hr acetaminophen 500 mg tablet 1,000 mg PO TID PRN pain 04/01/24 03/31/24 History alendronate 70 mg tablet 70 mg PO .dailysundays bone 03/31/24 History ascorbic acid (vitamin C) 500 mg 500 mg PO BID 04/01/24 Unknown His tory capsule,extended release aspirin 81 mg chewable tablet 81 mg PO DAILY 04/01/24 04/01/24 H istory Allergy/AdvReac Type Severity Reaction Status Date / Time albuterol Allergy Swelling Verified 04/01/24 12:28 lidocaine (From Lidoderm) Allergy Hives Verified 04/01/24 12:28 Family History Brother (more content not included)... Normal [facility] Hemoglobin A1con 04-01-2024 HbA1c (Bld) [Mass fraction] 5.8 % High 3.8-5.6 [facility] Comment on above: Result Comment: Norm al < 5.7 % Prediabetic 5.7 - 6.4 % Diabetic >or= 6.5 % Please note range changes. Performed By: #### L 351.9985 #### [facility] [address] [place], [address] Hemoglobin A1c percentageOrd ered By: Chelsea Kaufman on 04-01-2024 HbA1c (Bld) [Mass fraction] 5.8 % High 3.8-5.6 [facility] Comment on above: Normal < 5.7 % Predi abetic 5.7 - 6.4 % Diabetic >or= 6.5 % Please note range changes. International normalized rat io (INR) calculationOrdered By: Meagan Norman on 04-01-2024 INR Coag (Bld) [Relative time] 0.9 {INR} [facility] L501.4020on 04-01-2024 TROPONIN-I HS 11 pg/mL Normal 3.0-54.0 [facility] Comment on above: Order Comment: 'TROP ' Serial specimen #1, #2 or #3: 1 Result Comment: Amilcar pagan Note: New Test Units and Gender Specific Reference Ranges. For more information see Policy Stat Procedure [place] High Sensitivity Troponin (TNIH) and attachments. Performed By: #### L [id number] #### [facility] [address] [place], [address] Partial Thromboplast Timeon 04-01-2024 aPTT Coag (Bld) [Time] 24.5 s Normal 24.1-36.2 [facility] Comment on above: Performed By: #### L 100.0100, L300.3900, L300.4310, L500.2500 ####[facility] [id number] [place], [address] Prothrombin Time w/INRon INR Normal [facility] Comment on above: Result Comment: DUPL ICATE Performed By: #### L 501.9985 #### [facility] [address] [place], [address] PROTIME Normal 11.7-14.9 [facility] Comment on above: Result Comment: DUPL ICATE Performed By: #### L 501.9985 #### [facility] [address] [place], [address] INR Coag (PPP) [Relative time] 0.9 {INR} Normal [facility] Comment on above: Performed By: #### L 100.0100, L300.3900, L300.4310, L500.2500 ####[facility] [id number] [place], [address] PT Coag (PPP) [Time] 12.7 s Normal 11.7-14.9 [facility] Comment on above: Performed By: #### L 100.0100, L300.3900, L300.4310, L500.2500 ####[facility] [address] [place], [address] Prothrombin timeOrdered By: Meagan Norman on 04-01-2024 PT Coag (PPP) [Time] 12.7 s 11.7-14.9 [facility] STROKE Brain/Head without Co nton 04-01-2024 STROKE Brain/Head without Cont [facility] Imaging Services [address] [place] [address] STROKE Brain/Head without Cont MR#: [id number] Acct: [id number] Name: KULDEEPHANNAH Rep #: [id number] : 1950 F 74 From: Jimi sterling MD PCP: JEMAL WallaceC Status: REG ER Study: STROKE Brain/Head without Cont Date of Exam: 0 04/01/24 Exam# [id number] Ordering Dr: Meagan Norman MD PROCEDURE: STROKE BRAIN/HEAD WITHOUT CONT REASON FOR EXAM: Neuro deficit. TECHNIQUE: Multiple axial tomographic images were obtained without intravenous contrast administration. Sagittal and coronal reconstruction was obtained as well. IV CONTRAST: None COMPARISON: None. FINDINGS: Mild degree of cerebral atrophy. Focal area of decreased attenuation in the posterior medial aspect of the right occipital lobe. Possible early infarct should be ruled out. There is evidence of periventricular decreased attenuation suggestive of small-vessel disease. CT/STROKE Brain/Head without Cont IMPRESSION: Findings suggestive of early ischemic change in the posterior medial aspect of the right occipital lobe. The referring physician Dr. Norman from the ER was notified. One or more dose reduction techniques were used (e.g., Automated exposure control, adjustment of the mA and/or kV according to patient size, use of iterative reconstruction technique). Reading Location: [place] [address] CC: ELECTRICAL PROSPECTOR-C Mayra Escobedo; Dr. Meagan Norman MD Forensic Artist: Signed Normal [facility] STROKE CTA Head AND Neck W/C onon 04-01-2024 STROKE CTA Head AND Neck W/Con [facility] Imaging Services [address] [place], [place] [id number] STROKE CTA Head AND Neck W/Con MR#: [id number] Acct: [id number] Name: HANNAH LIGHT Rep #: [id number] : 1950 F 74 From: Jimi sterling MD PCP: REBECCA Wallace Status: REG ER Study: STROKE CTA Head AND Neck W/Con Date of Exam: 0 04/01/24 Exam# [id number] Ordering Dr: Meagan Norman MD PROCEDURE: STROKE CTA HEAD AND NECK W/CON REASON FOR EXAM: Neuro deficit. Possible stroke. TECHNIQUE: CTA imaging of the head and neck from the aortic arch to the skull vertex with intravenous contrast. 3D reconstructions. CONTRAST: 100 cc of Isovue 370. COMPARISON: Comparison is made with prior unenhanced CT scan of the head done earlier in the day. FINDINGS: Heterogeneous enlargement of both lobes of the thyroid gland slightly worse on the right side. This is suggestive of goiter is change. Aortic Arch: Normal size and branching pattern. Mild atherosclerotic plaque. Brachiocephalic and Subclavians: Mild atherosclerotic plaque without significant stenosis. RIGHT Carotid: Right CCA: Unremarkable. Right ICA: Mild calcified and soft plaque. Maximum stenosis (NASCET): <50 % Right ECA: Unremarkable. LEFT Carotid: Left CCA: Unremarkable. Left ICA: Moderate calcified and soft plaque. Maximum stenosis (NASCET): 60 % Left ECA: Unremarkable. Vertebrals: Codominant. Arise from the subclavians. Both vertebrals form the basilar. RIGHT Vertebral: Unremarkable. LEFT Vertebral: Unremarkable. No intracranial aneurysms or large vascular malformations are identified. Anterior cerebral arteries: Unremarkable. Middle cerebral arteries: Unremarkable. Basilar artery: Unremarkable. Posterior cerebral arteries: origin of the right posterior cerebral artery. Other major branches of the posterior circulation: Unremarkable. Major venous structures: Unremarkable. Other findings: No lymphadenopathy. Lung apices are clear. Bones are unremarkable. CT/STROKE CTA Head AND Neck W/Con IMPRESSION: RIGHT CAROTID: Minimal plaque. LEFT CAROTID: Plaque formation causing between 50 and 60% narrowing. VERTEBRALS: Unremarkable INTRACRANIAL: No large vessel occlusion. One or more dose reduction techniques were used (e.g., Automated exposure control, adjustment of the mA and/or kV according to patient size, use of iterative reconstruction technique). Reading Location: [place] [address] CC: REBECCA Escobedo; Dr. Meagan Norman MD Forensic Artist: Signed Normal [facility] Troponin IOrdered By: Meagan Norman on 04-01-2024 Troponin I 11 pg/mL 3.0-54.0 [facility] Comment on above: Please Note: [place] t Units and Gender Specific Reference Ranges. For more information see Policy Stat Procedure [place] High Sensitivity Troponin (TNIH) and attachments. Orthopedic Visit Reporton Orthopedic Visit Report [facility] [address] [place] [address] OFFICE VISIT Date of Service: 03/14/24 MR#: [id number] Acct: [id number] Name: HANNAH LIGHT Rep #: [id number] : 1950 Provider: Dr. Chapo juan MD Age/Sex: 74/F [place] [facility] [place] Status: Signed Intake Vital Signs 02/26/24 11:48 Height 5 ft 3 in Intake Visit Reasons: LEFT SHOULDER Chief Complaint: MRI review Accompanied by: Self Is patient in pain?: No Allergies albuterol Allergy (Verified 03/14/24 15:15) Swelling lidocaine (From Lidoderm) Allergy (Verified 03/14/24 15:15) Hives Medications ???Medication ???Instructions ???Recorded ???Confirmed ???Type levomefolate 7.5 mg-algal oil 15 mg PO DAILY NERVES 07/23/13 03/14/24 History 90.314 mg capsule (Deplin (algal oil)) amlodipine 10 mg tablet 10 mg PO DAILY BP #30 tabs 03/14/17 03/14/24 Rx ergocalciferol (vitamin D2) 1,250 50,000 unit PO .2X WEEK SUPPLEMENT 05/31/23 03/14/24 History mcg (50,000 unit) capsule (Vitamin D2) ferrous sulfate 325 mg (65 mg 325 mg PO .QOD SUPPLEMENT 05/31/23 03/14/24 History iron) tablet levothyroxine 125 mcg capsule 187.5 mcg PO DAILY THYROID 05/31/23 03/14/24 History levothyroxine 125 mcg tablet 125 mcg PO MOTUWETHFRSA THYROID 05/31/23 03/14/24 History losartan 25 mg tablet 25 mg PO DAILY BP 05/31/23 03/14/24 History acetaminophen 500 mg tablet 1,000 mg (2 x 500 mg) PO TID #0 06/15/23 03/14/24 Rx tabs aspirin 81 mg chewable tablet 81 mg PO BIDCM 30 days #60 tabs 06/15/23 03/14/24 Rx Have you fallen in the past year?: No PFSH Medical History Primary osteoarthritis, left shoulder Left shoulder pain Wears glasses Post-menopausal History of Clostridium difficile infection Depression Anxiety History of steroid therapy Thyroid disease Rheumatoid arthritis Arthritis High cholesterol Back pain Injury of head and neck History of hiatal hernia Gastric reflux Non-smoker Shortness of breath on exertion History of pain when walking Cardiology follow-up encounter Hypertension Surgical History Hx of arthroscopic knee surgery Hx of surgical procedure History of carpal tunnel surgery of right wrist Hx of tubal ligation History of laparoscopic cholecystectomy Hx of appendectomy History of hip replacement Total knee replacement status Family History Other Heart disease Social History household members: spouse Smoking Status: Never smoker HPI LEFT SHOULDER Details: This documentation accurately reflects the service provided and the decisions made by me, Dr. Chapo Yates MD 03/14/24 1310. Part of today???s visit was documented by [ ], acting as scribe. HANNAH LIGHT is a 74 year old F here today for FU L shoulder MRI. Patient had recent cortisone injection and is doing quite well from that standpoint. A lot easier to reach behind the back and snap up her bra. Supplemental Info [facility] Imaging Services [address] [place], [place] [address] Upper Ext Joint Only(Routine) MR#: [id number] Acct: [id number] Name: HANNAH LIGHT Rep #: [id number] : 1950 F 74 From: Piter Kaufman MD PCP: Mayra Escobedo NP-C Status: REG CLI Study: Upper Ext Joint Only(Routine) Date of Exam: 03/11/24 Exam# [id number] Ordering Dr: Chapo Yates MD [id number] STUDY: MRI LEFT SHOULDER REASON FOR EXAM: Female, 74 years old. Pain, rule out cuff tear. TECHNIQUE: Standardized fat and water weighted pulse sequences were obtained in all 3 orthogonal planes. COMPARISON: Left shoulder radiographs dated 01/17/2024. FINDINGS: There is mild supraspinatus, infraspinatus, and subscapularis tendinosis without a full-thickness tear. Normal teres minor tendon. Normal supraspinatus muscle. Normal infraspinatus muscle. Normal subscapularis muscle. Normal teres minor muscle. There is glenohumeral arthrosis with joint space narrowing, small marginal osteophyte formation, moderate to high-grade chondromalacia, and subchondral edema/cyst formation in the glenoid. There is a tiny glenohumeral joint effusion There is enthesopathic subcortical cyst formation of the greater tuberosity of the humeral head. Normal biceps labral complex. Normal intracapsular long biceps tendon. Normal labrum. Normal capsulo-ligamentous complex. Normal rotator interval. There is mild h (more content not included)... Normal [facility] Upper Ext Joint Only(Routine )on 03-11-2024 Upper Ext Joint Only(Routine) [facility] Imaging Services [address] [place] [id number] Upper Ext Joint Only(Routine) MR#: [id number] Acct: [id number] Name: HANNAH LIGHT Rep #: [id number] : 1950 F 74 From: Piter Kaufman MD PCP: REBECCA Wallace Status: [facility] Study: Upper Ext Joint Only(Routine) Date of Exam: 0 03/11/24 Exam# [id number] Ordering Dr: Chapo Yates MD [id number] STUDY: MRI LEFT SHOULDER REASON FOR EXAM: Female, 74 years old. Pain, rule out cuff tear. TECHNIQUE: Standardized fat and water weighted pulse sequences were obtained in all 3 orthogonal planes. COMPARISON: Left shoulder radiographs dated 01/17/2024. FINDINGS: There is mild supraspinatus, infraspinatus, and subscapularis tendinosis without a full-thickness tear. Normal teres minor tendon. Normal supraspinatus muscle. Normal infraspinatus muscle. Normal subscapularis muscle. Normal teres minor muscle. There is glenohumeral arthrosis with joint space narrowing, small marginal osteophyte formation, moderate to high-grade chondromalacia, and subchondral edema/cyst formation in the glenoid. There is a tiny glenohumeral joint effusion There is enthesopathic subcortical cyst formation of the greater tuberosity of the humeral head. Normal biceps labral complex. Normal intracapsular long biceps tendon. Normal labrum. Normal capsulo-ligamentous complex. Normal rotator interval. There is mild hypertrophic acromioclavicular arthrosis. There is a Type II morphology (curved), with a neutral orientation. There is trace subacromial-subdeltoid bursal fluid. Normal visualized coracohumeral and coracoacromial ligaments. Normal quadrilateral space. Normal axillary space. Normal deltoid muscle. Normal trapezius muscle. MRI/Upper Ext Joint Only(Routine) IMPRESSION: Mild supraspinatus, infraspinatus, and subscapularis tendinosis without a full-thickness rotator cuff tear. Glenohumeral arthrosis with a tiny glenohumeral joint effusion. Mild hypertrophic acromioclavicular arthrosis. Minimal subacromial-subdeltoid bursitis. Electronically Signed: Piter Kaufman MD at 11:19 EST Reading Location ID and State: [address] [place] [address] , Service support , CC: REBECCA Escobedo; Dr. Chapo Yates MD Forensic Artist: Signed Normal [facility] Orthopedic Visit Reporton Orthopedic Visit Report [facility] [address] [place] [address] OFFICE VISIT Date of Service: 03/04/24 MR#: [id number] Acct: [id number] Name: HANNAH LIGHT Rep #: [id number] : 1950 Provider: Dr. Chapo juan MD Age/Sex: 74/F [place] [facility] [place] Status: Signed with Addenda ADDENDUM by Danielle Alvarenga on 03/04/24 at 1535 Office Procedure Documentation entered by Danielle Alvarenga 03/04/24 15:35: Ortho Injections Injections Yes Subacromial Injection Left Is this a patient provided medication?: No Details: Obtained consent for injection. Under sterile conditions, injected the patients left shoulder with 2cc Kenalog 4cc Bupivacaine. The patient tolerated the injection well without any noted complication. Patient should call our office if redness develops, pain worsens or if they have any concerns. Office Meds Kenalog 40 mg/mL suspension for injection Performing Provider: Chapo Yates MD Performing Location: [facility] Administered by: Chapo Yates MD on 03/04/24 15:33 Dose Route Admin Location Dispensed Lot Number Expiration Date NDC Thiago ufacturer 80 mg intra-articular left shoulder 2 mL [id number] 06/20/25 3189-9898-14 [facility] Date cc: * Signed Intake Vital Signs 02/26/24 11:48 Height 5 ft 3 in Intake Visit Reasons: LEFT SHOULDER Chief Complaint: Left Shoulder Pain Accompanied by: Self Is patient in pain?: Yes Pain scale (1-10): 6 Allergies albuterol Allergy (Verified 03/04/24 14:50) Swelling lidocaine (From Lidoderm) Allergy (Verified 03/04/24 14:50) Hives Medications ???Medication ???Instructions ???Recorded ???Confirmed ???Type levomefolate 7.5 mg-algal oil 15 mg PO DAILY NERVES 07/23/13 03/04/24 History 90.314 mg capsule (Deplin (algal oil)) amlodipine 10 mg tablet 10 mg PO DAILY BP #30 tabs 03/14/17 03/04/24 Rx ergocalciferol (vitamin D2) 1,250 50,000 unit PO .2X WEEK SUPPLEMENT 05/31/23 03/04/24 History mcg (50,000 unit) capsule (Vitamin D2) ferrous sulfate 325 mg (65 mg 325 mg PO .QOD SUPPLEMENT 05/31/23 03/04/24 History iron) tablet levothyroxine 125 mcg capsule 187.5 mcg PO DAILY THYROID 05/31/23 03/04/24 History levothyroxine 125 mcg tablet 125 mcg PO MOTUWETHFRSA THYROID 05/31/23 03/04/24 History losartan 25 mg tablet 25 mg PO DAILY BP 05/31/23 03/04/24 History acetaminophen 500 mg tablet 1,000 mg (2 x 500 mg) PO TID #0 06/15/23 03/04/24 Rx tabs aspirin 81 mg chewable tablet 81 mg PO BIDCM 30 days #60 tabs 06/15/23 03/04/24 Rx Have you fallen in the past year?: No PFSH Medical History Left shoulder pain Wears glasses Post-menopausal History of Clostridium difficile infection Depression Anxiety History of steroid therapy Thyroid disease Rheumatoid arthritis Arthritis High cholesterol Back pain Injury of head and neck History of hiatal hernia Gastric reflux Non-smoker Shortness of breath on exertion History of pain when walking Cardiology follow-up encounter Hypertension Surgical History Hx of arthroscopic knee surgery Hx of surgical procedure History of carpal tunnel surgery of right wrist Hx of tubal ligation History of laparoscopic cholecystectomy Hx of appendectomy History of hip replacement Total knee replacement status Family History Other Heart disease Social History household members: spouse Smoking Status: Never smoker HPI LEFT SHOULDER Details: This documentation accurately reflects the service provided and the decisions made by me, Dr. Chapo Yates MD 03/04/24 1123. Part of today???s visit was documented by [ ], acting as scribe. HANNAH LIGHT is a 74 year old F here today for left shoulder pain. RHD. Has done 6 weeks of formal PT. lateral side shoulder pain and going down the arm, worse with lifting, 6-7. worse at night. 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 Supplemental Info [facility] Imaging Services [address], [place] [id number] Shoulder min 2 Views MR#: [id number] Acct: [id number] Name: HANNAH LIGHT Rep #: [id number] : 1950 F 74 From: Grgeory Vela MD PCP: JEMAL WallaceC Status: REG CLI Study: Shoulder min 2 Views Date of Exam: 01/17/24 Exam# [id number] Ordering Dr: Mayra Escobedo ELECTRICAL PROSPECTORTatumC [id number] INDICATION: XR SHOULDER LEFT COMPLETE (84704) : Pa (more content not included)... Normal [facility] Fluoro Guided Needle Placeme nton 02-26-2024 Fluoro Guided Needle Placement [facility] Imaging Services [address] [place] [id number] Fluoro Guided Needle Placement MR#: [id number] Acct: [id number] Name: HANNAH LIGHT Rep #: [id number] : 1950 F 74 From: Jimi sterling MD PCP: JEMAL WallaceC Status: [facility] Study: Fluoro Guided Needle Placement Date of Exam: 0 02/26/24 Exam# [id number] Ordering Dr: Gregory Aponte MD [id number] STUDY: KNEE INJECTION. RIGHT REASON FOR EXAM: Female, 74 years old. INJECTION, KNEE, RIGHT FLUOROSCOPY TIME (if supplied): ( 6 seconds ) minutes/seconds. 1.11 mGy. 3 images were submitted. TECHNIQUE: Fluoroscopic services provided for right knee injection. RAD/Fluoro Guided Needle Placement IMPRESSION: Fluoroscopic services provided for right knee injection. Electronically Signed: Jimi Morales MD at 12:20 EST , CC: ELECTRICAL PROSPECTOR-Nena Escobedo; Dr. Gregory Aponte MD Forensic Artist: Signed Normal [facility] Operative Reporton 5 Operative Report [facility] Medical Records Department [address] [place] [address] Operative Report 02/26/24 1213 MR#: [id number] Acct: [id number] Name: HANNAH LIGHT Rep #: [id number] : 1950 74 From: Gregory Aponte MD PCP: REBECCA Wallace Status:REG [facility] Location: [place] [address] Operative Report (Standard) Operative Information Date of Procedure: 02/26/24 Pre-Operative Diagnosis: 1 Post-Operative Diagnosis: 1 Surgery/Procedure Performed: 1 shine worker: No Type of Anesthesia: Local RN Documented Start/Stop Times: Operation Date: 02/26/24 12:00 Case Time Into Pre-Op 02/26/24 11:23 Out of Pre-Op 02/26/24 11:55 Into Room 02/26/24 12:00 Procedure Start 02/26/24 12:08 Procedure End 02/26/24 12:11 Anesthesia Start Procedure Start Time: 12:14 Procedure Stop Time: 12:14 Select all DRAINS/GRAFTS/IMPLANTS that apply: None Estimated Blood Loss: 1 Specimen collected: No Description of surgery: PROCEDURE: Right-sided knee superior medial, superior lateral and inferior medial genicular nerves steroid injection under fluoroscopy guidance. PREOPERATIVE DIAGNOSES: Osteoarthritis of the right knee, postoperative knee pain. POSTOPERATIVE DIAGNOSES: Osteoarthritis of the right knee, postoperative knee pain. ANESTHESIA: Local COMPLICATIONS: None. BLOOD LOSS: Minimal. PROCEDURE IN DETAIL: History and physical today was reviewed. Risks and benefits of procedure explained. The patient understood, agreed to the procedure and informed consent was obtained, IV inserted per routine protocol. The patient was taken to the operating room placed in the supine position. The right knee area was prepped and draped in a sterile fashion using iodine x3. Under fluoroscopy guidance, on an AP view, the right knee joint was visualized. The skin and subcutaneous tissues were anesthetized with approximately 5 mL of 1% lidocaine using a 25-gauge regular needle at the vicinity of the superior medial, superior lateral and inferior medial genicular nerves. Under direct visualization with fluoroscopy, using a 22-gauge 3-1/2-inch spinal needle, starting on the superior medial ending on the inferior medial passing through the superior lateral genicular nerves needle passed through the skin. The tip of the needle was maneuvered and directed towards the diaphyseal junction of each corresponding nerve. Once the tip of the needle was at the vicinity of the genicular nerve after negative aspiration for blood, a total of 12 mL of preservative-free 0.25% Marcaine with 80 mg of Depo-Medrol injected in divided doses between these three levels. The needles were then removed intact. The patient experienced no signs or symptoms of intravascular injection. The patient experienced no paresthesia. The procedure was completed without any apparent difficulty or any complication. The patient appeared to tolerate well. ASSESSMENT AND PLAN: This is a 74-year-old female with postoperative knee pain, osteoarthritis of the right knee status post right knee superior medial/superior lateral/inferior medial genicular nerves steroid injection under fluoroscopy guidance. The patient will continue her current medication. The patient will follow in approximately 2 weeks for Reevaluation. Surgical Findings: 0 Complications Complications: No Admit VTE Documentation VTE Present on Admission: No VTE Mechan Device Prophylaxis: None VTE Pharm Prophylaxis ordered?: No 02/26/24 1216 Cosigner Signature (if applicable): CC: REBECCA Escobedo; Dr. Grgeory Aponte MD Signed Normal [facility] Urine Cultureon 02-12-2024 URC Below infection leve l. Mixed Gram Positive Organisms [place] Count 1000-10,000 MIXC Mixed contaminants. Submit a new specimen if indicated. Normal [facility] Comment on above: Performed By: #### L 506.1000, L400.0001, M100.2200, L501.9520 #### [facility] Laboratory [address] [place], [address] Vitamin D,25 Hydroxyon 02-11 Vitamin D 25-OH 33.2 ng/mL Normal [facility] Comment on above: Result Comment: Jackie min D 25(OH) Status Range Deficiency <20 ng/mL (50nmol/L) Insufficiency 20 - 30 ng/mL (50 - 75 nmol/L) Sufficiency 30 - 100 ng/mL (75 - 250 nmol/L) Toxicity >100 ng/mL (>250 nmol/L) Performed By: #### L 506.1000, L400.0001, M100.2200, L501.9520 #### [facility] Laboratory [address] [place], [address] Thyroid Stim Hormone (TSH)on 02-10-2024 TSH 7.880 uIU/mL High 0.358-3.74 0 [facility] Comment on above: Performed By: #### L 506.1000, L400.0001, M100.2200, L501.9520 #### [facility] Laboratory [address] [place], [address] Urinalysis, Completeon 02-09 BACTERIA 1+ /hpf Normal None Seen [facility] Comment on above: Order Comment: Urine , Random Performed By: #### L 506.1000, L400.0001, M100.2200, L501.9520 #### [facility] Laboratory [address] [place], [address] CA OX CRYSTAL 2+ /hpf Normal [facility] Comment on above: Order Comment: Urine , Random Performed By: #### L 506.1000, L400.0001, M100.2200, L501.9520 #### [facility] Laboratory [address] [place], [address] EPI,SQUAMOUS 10-25 SEEN Normal 5-10 [facility] Comment on above: Order Comment: Urine , Random Performed By: #### L 506.1000, L400.0001, M100.2200, L501.9520 #### [facility] Laboratory [address] [place], [address] EPI,TRANSITION 0-5 SEEN Normal 0-5 [facility] Comment on above: Order Comment: Urine , Random Performed By: #### L 506.1000, L400.0001, M100.2200, L501.9520 #### [facility] Laboratory [address] [place], [address] WBC 0-5 SEEN Normal 0-5 [facility] Comment on above: Order Comment: Urine , Random Performed By: #### L 506.1000, L400.0001, M100.2200, L501.9520 #### [facility] Laboratory [address] [place], [address] Mucus Ql (Urine sed) 0 SEEN Normal [facility] Comment on above: Order Comment: Urine , Random Performed By: #### L 506.1000, L400.0001, M100.2200, L501.9520 #### [facility] Laboratory [address] [place], [address] RBC 0 SEEN Normal 0-5 [facility] Comment on above: Order Comment: Urine , Random Performed By: #### L 506.1000, L400.0001, M100.2200, L501.9520 #### [facility] Laboratory [address] [place], [address] Dexa Bone Density Studyon Dexa Bone Density Study [facility] Imaging Services [address] [place] [address] Dexa Bone Density Study MR#: [id number] Acct: [id number] Name: HANNAH LIGHT Rep #: [id number] : 1950 F 74 From: Jimi sterling MD PCP: REBECCA Wallace Status: [facility] Study: Dexa Bone Density Study Date of Exam: 02/08/24 Exam# [id number] Ordering Dr: Mayra Escobedo [id number] STUDY: DUAL ENERGY X-RAY ABSORPTIOMETRY / DXA REASON FOR EXAM: Female, 74 years old. [id number] -- Postmenopausal status TECHNIQUE: Bone Mineral Density (BMD) measurements of lumbar spine and left hip were obtained. COMPARISON: None. FINDINGS: Lumbar Spine (L1-L4): g/cm2 (1.004) / T-score (-0.4) / Z-score (2.0) Findings are suggestive of normal bone density with a low fracture risk. Left Femur Total: g/cm2 (0.774) / T-score (-1.4) / Z-score (0.4) Left Femoral Neck: g/cm2 (0.542) / T-score (-2.8) / Z-score (by 0.7) BD/Dexa Bone Density Study IMPRESSION: The patient is considered osteoporotic as outlined below according to World Brian Organization (WHO) criteria with a high fracture risk. Reference Information: The T-score is the number of standard deviations above or below the standard which is normal for young adults at their peak bone mineral density. The World Health Organization (WHO) interprets the T-scores as follows: Above -1 Normal bone density Between -1 and -2.5 Osteopenia Equal to / or below -2.5 Osteoporosis As a practical clinical guideline, osteopenia may be graded as follows: Mild -1 through -1.5 Moderate -1.6 through -2.0 Severe -2.1 through -2.4 The Z-score is the number of standard deviations above or below age-matched controls. A Z-score of less than -1.5 would be considered abnormal. References: 1. NIH Osteoporosis and Related Bone Diseases www osteo.org 2. International Society for Clinical Densitometry www iscd.org 3. National Osteoporosis Foundation www nof.org Electronically Signed: Jimi Morales MD at 11:56 EST , CC: REBECCA Escobedo Forensic Artist: Signed Normal [facility] Inital Evaluation (1) - PTon 01-26-2024 Inital Evaluation (1) - PT [facility] Physical Therapy [facility] [address] [place] [address] / REHABILITATION SERVICES INITIAL EVALUATION MR#: [id number] Acct: [id number] Name: HANNAH LIGHT Rep #: [id number] : 1950 74 From: Rory Forrest PT, Nik. MD Peterson, OCS Referring Dr.: REBECCA Wallace Status: REG RCR Insurance: [employer]/[facility] SELF PAY INSURANCE Patient's Visit Information Visit Information Visit Information: HANNAH LIGHT is a 74 year old F referred to Physical Therapy by REBECCA Wallace with a diagnosis of LEFT SHOULDER PAIN. Date of Evaluation: 01/26/24 Physical Therapist: Rory Forrest PT, Cert T, OCS Visit Plan Frequency: 2x /Week Duration: 4 Weeks Plan: PT INTERVENTIONS ROM EX'S ,MANUAL THERAPY G-H joints mobs 2-3 ,RTC/SCAPULAR STRENGTHENING AND POSTURAL EX'S Subjective Subjective: This 74 y/o female presents to physical therapy with left shoulder pain. Patient seen DR and recommended PT and had x-rays showed OA. No medication. Patient has left shoulder pain for 3 months . Pain located global to lateral deltoid described as sharp pain, Aggravating factors OH an self hyenine and ADL ,combing hair ,reaching in cupboard and reaching behind back . Alleviating factors rest ice and voltaren and teylonal . Symptoms effects sleeping . Patient condition affects QOL and function. Patient goals to decrease pain. 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 Left: Pain Intensity (Out of 10): 5 Pain Intensity Range: 10 Objective Objective: POSTURE: rounded shoulders forward head PALPATION: tender UT/levator/AC region NEURO: c/o occasional paresthesia in hand especially when sleeping AROM: shoulder flexion 115 degrees pain ,abduction 110 degrees pain ,ER 85 degrees, IR S1 PROM: shoulder flexion 150 degrees ,abduction 150 in scaption ER pain CAPSULAR RESTRICTION: mod tight SCAPULAR HUMERAL: 1:1 Ratio MMT: ( peak force) infraspinatus 11.2 ,supraspinatus 9.7 ,deltoid ( anterior)15.4 subscapularis Special Tests L Shoulder External Rotation Lag Test - RC Tear: Negative L Shoulder Drop Sign - IS Test: Negative L Shoulder Empty Can - SS: Positive L Shoulder Belly Press - SupScap: Negative L Shoulder Neer - Impingement: Positive L Shoulder Oreilly Ishan - Impingement: Positive L Shoulder Speeds Test - Labrum/Biceps: Negative Balance/Special Test Scores Quick DASH Score: 62.5000 Goals Goal 1:: Patient to be I with HEP for shoulder Goal Time Frame: 4-6 Weeks Goal 2:: Patient to demonstrate 50% improvement with less pain and improve function Goal Time Frame: 4-6 Weeks Goal 3:: Patient to improve oswestry score by 5 points to improve QOL and function Goal Time Frame: 4-6 Weeks Goal 4:: Patient to improve shoulder AROM flexion 150 degrees and abduction 150 degrees for activities above 90 degrees and self hygiene Goal Time Frame: 4-6 Weeks Goal 5:: Patient to improve peak force RTC and deltoid by 5-10# to improve function and ADLS Goal Time Frame: 4-6 Weeks Rehabilitation Potential Physical Therapy Diagnosis: Patient appears to have left shoulder RTC tendinopathy with adhesive capsulitis with decrease ROM impairs ADLs and activities OH and mid, weakness RTC looks good thus benefit from skilled PT Anticipated Interventions Patient/Client Instruction: Educate patient on: Condition and Plan of Care For the Purpose of:: To decrease pain, To increase ROM, To improve muscle performance and motor function, To improve ability to perform ADL's, To increase tolerance to activity/condition/posit ion, To improve ability of physical actions for home/community/work/leis ure, To improve health of tissue, To decrease soft tissue restriction, To increase flexibility/ROM and To reduce risk of recurrence Therapeutic Exercise to Include: Strength training, Postural training, Active ROM and Scapular Strength/Stabilization Comment: RTC For the Purpose of:: To decrease pain, To increase ROM, To improve ability to perform ADL's, To improve health of tissue, To decrease soft tissue restriction, To increase flexibility/ROM and To improve balance Manual Therapy Techniques to Include: Mobilization Comment: G-H GR2-3 For the Purpose of:: To decrease pain, To increase ROM, To improve nutrient delivery to tissue, To increase oxygenation perfusion, To improve health of tissue, To decrease soft tissue restriction and To increase flexibility/ROM TENS: Yes IF ES: Yes Cryotherapy (ice pack, ice massage): Yes Thermo therapy (hot pack): Yes Ultrasound (thermal/non thermal): Yes For the Purpose of:: To decrease pain, To increase ROM, To improve ability to perform ADL's, To increase tolerance to activity/condition/posit ion, To improve ability of physical actions for ho me/community/work/leisur e, To improve health of tissue and To decrease soft tissue restriction Text: (more content not included)... Normal [facility] Shoulder min 2 Viewson 01-16 Shoulder min 2 Views [facility] Imaging Services [address] [place], [place] [address] Shoulder min 2 Views MR#: [id number] Acct: [id number] Name: HANNAH LIGHT Rep #: [id number] : 1950 F 74 From: Gregory Vela MD PCP: REBECCA Wallace Status: REG CLI Study: Shoulder min 2 Views Date of Exam: 01/17/24 Exam# [id number] Ordering Dr: Mayra EscobedoC [id number] INDICATION: XR SHOULDER LEFT COMPLETE (04269) : Pain x3 months; ? rotator cuf -- Left shoulder pain EXAMINATION/TECHNIQUE: X-RAY - LEFT XR Shoulder Min 2 Views COMPARISON: None. FINDINGS: SOFT TISSUES: Unremarkable. BONES/JOINTS: No fracture or dislocation. Mild degenerative changes of the glenohumeral joint. No erosive changes. RAD/Shoulder min 2 Views IMPRESSION: Mild degenerative changes with no acute abnormality. Electronically Signed: Gregory Vela DO at 0:36 EST , CC: ELECTRICAL PROSPECTOR-C Mayra Escobedo Forensic Artist: Signed Normal [facility] Lower Ext Joint Only (Routin e)on 12-25-2023 Lower Ext Joint Only (Routine) [facility] Imaging Services [address] [place] [address] Lower Ext Joint Only (Routine) MR#: [id number] Acct: [id number] Name: HANNAH LIGHT Rep #: [id number] : 1950 F 73 From: Rodolfo Carpenter MD PCP: Mayra Escobedo, ELECTRICAL PROSPECTOR-C Status: REG CLI Study: Lower Ext Joint Only (Routine) Date of Exam: 02/23/23 Exam# [id number] Ordering Dr: Brennon Ramirez MD [id number] EXAM: MR RIGHT LOWER EXTREMITY WITHOUT INTRAVENOUS CONTRAST, KNEE CLINICAL INDICATION: PAIN RT KNEE, DISORDERS OF TENDON, PAIN D/T ORTHO PROSTHESIS TECHNIQUE: Multiplanar and multisequence MR images of the right knee without intravenous contrast. COMPARISON: June 14, 2023 FINDINGS: BONES/JOINTS: Total knee arthroplasty with extensive susceptibility artifact limiting assessment of the adjacent tissues. Patellofemoral arthroplasty postsurgical changes are also seen. No Pichardo''s cyst. No fracture. No abnormal bone marrow signal. No synovial hypertrophy. No intra-articular body. EXTENSOR MECHANISM: Unremarkable. MEDIAL MENISCUS: Unremarkable. LATERAL MENISCUS: Unremarkable. MEDIAL CAPSULE/SUPPORTING STRUCTURES: Unremarkable. Intact. LATERAL CAPSULE/SUPPORTING STRUCTURES: Unremarkable. Lateral collateral ligamentous complex, inclusive of the popliteal tendon, are intact. ANTERIOR CRUCIATE LIGAMENT: Unremarkable. Intact. POSTERIOR CRUCIATE LIGAMENT: Unremarkable. Intact. MUSCLES: Unremarkable. CARTILAGE: Unremarkable. Intact. FLUID: Moderate suprapatellar joint effusion. No soft tissue masses or fluid collections. MRI/Lower Ext Joint Only (Routine) IMPRESSION: Tricompartmental arthroplasty postsurgical changes are noted with susceptibility artifact limiting assessment of the adjacent tissues. Moderate size suprapatellar joint effusion without significant synovitis or intra-articular intra-articular ossific bodies on limited assessment. Electronically Signed: Rodolfo Carpenter MD at 3:03 EST , CC: REBECCA Escobedo; Dr. Brennon Ramirez MD Forensic Artist: Signed Normal [facility] PT D/C Summary (1)on 024 PT D/C Summary (1) [facility] Physical Therapy [facility] [id number] [facility] [address] [place] [address] / REHABILITATION SERVICES DISCHARGE SUMMARY MR#: [id number] Acct: [id number] Name: HANNAH LIGHT Rep #: [id number] : 1950 73 From: Aníbal Garcia PT, FADY, SCS, C SCS Referring Dr.: ALEE Marti Status: REG R CR Insurance: [employer]/[facility] SELF PAY INSURANCE 11/27/23 1434 CC: REBECCA Escobedo; ALEE Marti Signed Normal [facility] CBC, Employeeon 11-20-2023 Absolute Lymph 1.92 X10 3/uL Normal 0.83-4.51 [facility] Comment on above: Performed By: #### L 501.9985 #### [facility] Laboratory [address] [place], [place], [phone] ([phone] Absolute Neut 2.5 X10 3/uL Normal 2.0-7.7 [facility] Comment on above: Performed By: #### L 501.9985 #### [facility] Laboratory [address] [place], [address] Basophils/100 WBC (Bld) 0.4 % Normal 0-1 [facility] Comment on above: Performed By: #### L 501.9985 #### [facility] Laboratory [address] [place], [place], [phone] ([address] Eosinophils/100 WBC (Bld) 3.5 % Normal 0-5 [facility] Comment on above: Performed By: #### L 501.9985 #### [facility] Laboratory [address] [place], [address] Erythrocyte distribution width (RBC) [Ratio] 13.2 % Normal 11.6-14.6 [facility] Comment on above: Performed By: #### L .85 #### [facility] Laboratory [address] [place], [address] Hematocrit (Bld) [Volume fraction] 40.1 % Normal 37-47 [facility] Comment on above: Performed By: #### L .85 #### [facility] Laboratory [address] [place], [address] Hemoglobin (Bld) [Mass/Vol] 12.9 g/dL Normal 12.0-15.0 [facility] Comment on above: Performed By: #### L 85 #### [facility] Laboratory [address] [place], [address] Lymphocytes/100 WBC (Bld) 35.5 % Normal 19-41 [facility] Comment on above: Performed By: #### L .85 #### [facility] Laboratory [address] [place], [address] MCH (RBC) [Entitic mass] 29.4 pg Normal 27.0-32.0 [facility] Comment on above: Performed By: #### L 85 #### [facility] Laboratory [address] [place], [address] MCHC (RBC) [Mass/Vol] 32.2 g/dL Normal 32-36 [facility] Comment on above: Performed By: #### L 501[address] #### [facility] Laboratory [address] [place], [address] MCV (RBC) [Entitic vol] 91.3 fL Normal 81-99 [facility] Comment on above: Performed By: #### L .85 #### [facility] Laboratory [address] [place], [address] Monocytes/100 WBC (Bld) 13.7 % High 0-10 [facility] Comment on above: Performed By: #### L 501.9985 #### [facility] Laboratory [address] [place], [address] Neutrophils/100 WBC (Bld) 46.2 % Low 47-70 [facility] Comment on above: Performed By: #### L 501.9985 #### [facility] Laboratory [address] [place], [address] NRBC # 0.00 10 3/uL Normal 0-5 [facility] Comment on above: Performed By: #### L 501.9985 #### [facility] Laboratory [address] [place], [address] Nucleated RBC (Bld) [#/Vol] 0 10*3/uL Normal 0-5 [facility] Comment on above: Performed By: #### L 501.9985 #### [facility] Laboratory [address] [place], [address] Platelet mean volume (Bld) [Entitic vol] 10.9 fL Normal 6.2-12.0 [facility] Comment on above: Performed By: #### L 501.9985 #### [facility] Laboratory [address] [place], [address] Platelets (Bld) [#/Vol] 206 10*3/uL Normal 150-450 [facility] Comment on above: Performed By: #### L 501.9985 #### [facility] Laboratory [address] [place], [address] RBC (Bld) [#/Vol] 4.39 10*6/uL Normal 4.2-5.4 [facility] Comment on above: Performed By: #### L 501.9985 #### [facility] Laboratory [address] [place], [address] RDW SD 44.8 fl High 35.1-43.9 [facility] Comment on above: Performed By: #### L 501.9985 #### [facility] Laboratory [address] [place], [address] WBC (Bld) [#/Vol] 5.4 10*3/uL Normal 4.4-11.0 [facility] Comment on above: Performed By: #### L 501.9985 #### [facility] Laboratory [address] [place], [address] CRPon 11-20-2023 C-REACTIVE PROT < 2.90 Normal 0.0-3.0 [facility] [facility] Comment on above: Order Comment: CBCD- IS DUPLICATE WITH EMP LABS PANEL Result Comment: C-Re active Protein (CRP) provides useful information for the diagnosis, therapy and monitoring of inflammatory processes and associated diseases. For the evaluation of Relative Risk for Cardiovascular Disease, a High Sensitivity CRP (HSCRP) should be ordered. Performed By: #### L 501.6710, L101.9900 ####[facility] [id number] [place], [address] Employee Profileon Albumin [Mass/Vol] 3.6 g/dL Normal 3.2-5.0 [facility] Comment on above: Performed By: #### L 506.1000, L400.0001, M100.2200, L501.9520 #### [facility] [address] [place], [address] Albumin/Globulin [Mass ratio] 1.2 {ratio} Normal 0.9-2.4 [facility] Comment on above: Performed By: #### L 506.1000, L400.0001, M100.2200, [id number] #### [facility] [address] [place], [address] ALK P 76 U/L Normal 45-117 [facility] Comment on above: Performed By: #### L 506.1000, L400.0001, M100.2200, [id number] #### [facility] [address] [place], [address] ALT [Catalytic activity/Vol] 22 U/L Normal 13-56 [facility] Comment on above: Performed By: #### L 506.1000, L400.0001, M100.2200, [id number] #### [facility] [address] [place], [address] AST [Catalytic activity/Vol] 14 U/L Low 15-37 [facility] Comment on above: Performed By: #### L 506.1000, L400.0001, M100.2200, [id number] #### [facility] [address] [place], [address] Bilirubin [Mass/Vol] 0.70 mg/dL Normal 0.20-1.00 [facility] Comment on above: Result Comment: For patients on eltrombopag therapy, use of Dimension [place] TBIL is not recommended. Performed By: #### L 506.1000, L400.0001, M100.2200, [id number] #### [facility] [address] [place], [address] Bilirubin.direct [Mass/Vol] 0.15 mg/dL Normal 0.00-0.30 [facility] Comment on above: Performed By: #### L 506.1000, L400.0001, M100.2200, [id number] #### [facility] [address] [place], [address] BUN/CRE 19.2 RATIO Normal 10-20 [facility] Comment on above: Performed By: #### L 506.1000, L400.0001, M100.2200, [id number] #### [facility] [address] [place], [address] CA,Total 8.9 mg/dL Normal 8.5-10.1 [facility] Comment on above: Performed By: #### L 506.1000, L400.0001, M100.2200, [id number] #### [facility] [address] [place], [address] Chloride [Moles/Vol] 105 mmol/L Normal 98-107 [facility] Comment on above: Performed By: #### L 506.1000, L400.0001, M100.2200, [id number] #### [facility] [address] [place], [address] CHOL:HDL 3.40 Normal [facility] Comment on above: Performed By: #### L 506.1000, L400.0001, M100.2200, [id number] #### [facility] [address] [place], [address] Cholesterol [Mass/Vol] 221 mg/dL High 200 [facility] Comment on above: Result Comment: <200 mg/dL Desirable 200-240 mg/dL Borderline >240 mg/dL High Risk Performed By: #### L 506.1000, L400.0001, M100.2200, [id number] #### [facility] [address] [place], [address] Cholesterol in HDL [Mass/Vol] 65 mg/dL Normal [facility] Comment on above: Result Comment: The drugs N-Acetylcysteine and Metamizole may falsely depress this assay. Reference Range HDL <40 mg/dL Low HDL Cholesterol HDL >or= 60 mg/dL High HDL Cholesterol Performed By: #### L 506.1000, L400.0001, M100.2200, [id number] #### [facility] [address] [place], [address] Cholesterol in LDL [Mass/Vol] 134 mg/dL High 0-130 [facility] Comment on above: Performed By: #### L 506.1000, L400.0001, M100.2200, [id number] #### [facility] [address] [place], [address] Cholesterol in VLDL [Mass/Vol] 22 mg/dL Normal 5-40 [facility] Comment on above: Performed By: #### L 506.1000, L400.0001, M100.2200, [id number] #### [facility] [address] [place], [address] CO2 [Moles/Vol] 29.0 mmol/L Normal 21.0-32.0 [facility] Comment on above: Performed By: #### L 506.1000, L400.0001, M100.2200, [id number] #### [facility] [address] [place], [address] Creatinine [Mass/Vol] 0.89 mg/dL Normal 0.55-1.02 [facility] Comment on above: Result Comment: The validity of the calculated GFR GFRAA in patients over 70 years has not been determined. Clinical correlation is essential. Performed By: #### L 506.1000, L400.0001, M100.2200, [id number] #### [facility] [address] [place], [address] EST GFR - AA 80 mL/min Normal >60 [facility] Comment on above: Result Comment: Afri can [place] GFR Calc Performed By: #### L 506.1000, L400.0001, M100.2200, [id number] #### [facility] [address] [place], [address] GAP 7 Normal 5-15 [facility] Comment on above: Performed By: #### L 506.1000, L400.0001, M100.2200, [id number] #### [facility] [address] [place], [address] GFR/1.73 sq M.predicted among non-blacks MDRD (S/P/Bld) [Vol rate/Area] 66 mL/min/{1.73_m2} Normal >60 [facility] Comment on above: Result Comment: Non- GFR Calc Performed By: #### L 506.1000, L400.0001, M100.2200, [id number] #### [facility] [address] [place], [address] Globulin (S) [Mass/Vol] 3.0 g/dL Normal 2.2-4.2 [facility] Comment on above: Performed By: #### L 506.1000, L400.0001, M100.2200, [id number] #### [facility] [address] [place], [address] Glucose [Mass/Vol] 101 mg/dL Normal 74-106 [facility] Comment on above: Result Comment: Fast ing Glucose result from 100 to 125 mg/dL suggests IMPAIRED HOMEOSTASIS per A.D.A. criteria. Performed By: #### L 506.1000, L400.0001, M100.2200, [id number] #### [facility] [address] [place], [address] LDH 204 U/L Normal 84-246 [facility] Comment on above: Performed By: #### L 506.1000, L400.0001, M100.2200, [id number] #### [facility] [address] [place], [address] Phosphate [Mass/Vol] 3.3 mg/dL Normal 2.5-4.9 [facility] Comment on above: Performed By: #### L 506.1000, L400.0001, M100.2200, [id number] #### [facility] [address] [place], [address] Potassium [Moles/Vol] 4.5 mmol/L Normal 3.5-5.1 [facility] Comment on above: Performed By: #### L 506.1000, L400.0001, M100.2200, [id number] #### [facility] [address] [place], [address] Sodium [Moles/Vol] 141 mmol/L Normal 136-145 [facility] Comment on above: Performed By: #### L 506.1000, L400.0001, M100.2200, [id number] #### [facility] [address] [place], [address] T PROT 6.6 g/dL Normal 6.4-8.2 [facility] Comment on above: Performed By: #### L 506.1000, L400.0001, M100.2200, [id number] #### [facility] [address] [place], [address] Triglyceride [Mass/Vol] 111 mg/dL Normal [facility] Comment on above: Result Comment: The drugs N-Acetylcysteine and Metamizole may falsely depress this assay. Serum Triglycerides Reference Interval Normal <150 mg/dL Borderline high 150 - 199 mg/dL High 200 - 499 mg/dL Very High > or = 500 mg/dL Performed By: #### L 506.1000, L400.0001, M100.2200, [id number] #### [facility] [address] [place], [address] Urea nitrogen [Mass/Vol] 17 mg/dL Normal 7-18 [facility] Comment on above: Performed By: #### L 506.1000, L400.0001, M100.2200, [id number] #### [facility] [address] [place], [address] URIC 5.3 mg/dL Normal 2.6-6.0 [facility] Comment on above: Result Comment: The drugs N-Acetylcysteine and Metamizole may falsely depress this assay. Performed By: #### L 506.1000, L400.0001, M100.2200, [id number] #### [facility] [address] [place], [address] Erythrocyte Sed Rateon 11-19 SED RATE 5 mm/hr Normal 0-30 [facility] Comment on above: Order Comment: CBCD- IS DUPLICATE WITH EMP LABS PANEL Performed By: #### L 501.6710, L101.9900 ####[facility] [id number] [place], [address] Urinalysis, Employeeon 11-19 BILIRUBIN URINE Negative Normal Negative [facility] Comment on above: Order Comment: Urine , Random Performed By: #### L 506.1000, L400.0001, M100.2200, [id number] #### [facility] [address] [place], [address] Clarity (U) Clear Normal Clear [facility] Comment on above: Order Comment: Urine , Random Performed By: #### L 506.1000, L400.0001, M100.2200, [id number] #### [facility] [address] [place], [address] Color (U) Yellow Normal Yellow [facility] Comment on above: Order Comment: Urine , Random Performed By: #### L 506.1000, L400.0001, M100.2200, [id number] #### [facility] [address] [place], [address] GLUCOSE, UR Normal Normal Normal [facility] Comment on above: Order Comment: Urine , Random Performed By: #### L 506.1000, L400.0001, M100.2200, [id number] #### [facility] [address] [place], [address] KETONE UR Negative Normal Negative [facility] Comment on above: Order Comment: Urine , Random Performed By: #### L 506.1000, L400.0001, M100.2200, [id number] #### [facility] [address] [place], [address] LEUK ESTERASE 25 /ul Abnormal Negative [facility] Comment on above: Order Comment: Urine , Random Performed By: #### L 506.1000, L400.0001, M100.2200, [id number] #### [facility] [address] [place], [address] Nitrite Ql (U) Negative Normal Negative [facility] Comment on above: Order Comment: Urine , Random Performed By: #### L 506.1000, L400.0001, M100.2200, [id number] #### [facility] [address] [place], [address] OCCULT BLOOD-UR Negative Normal Negative [facility] Comment on above: Order Comment: Urine , Random Performed By: #### L 506.1000, L400.0001, M100.2200, [id number] #### [facility] [address] [place], [address] pH UR 7.0 Normal 5.0 - 8.0 [facility] Comment on above: Order Comment: Urine , Random Performed By: #### L 506.1000, L400.0001, M100.2200, [id number] #### [facility] [address] [place], [address] PROT DIPSTX Negative Normal Negative [facility] Comment on above: Order Comment: Urine , Random Performed By: #### L 506.1000, L400.0001, M100.2200, [id number] #### [facility] [address] [place], [address] SP.GR. DIPSTX 1.005 Normal 1.002-1.03 0 [facility] Comment on above: Order Comment: Urine , Random Performed By: #### L 506.1000, L400.0001, M100.2200, [id number] #### [facility] [address] [place], [address] UROBILI Normal Normal Normal [facility] Comment on above: Order Comment: Urine , Random Performed By: #### L 506.1000, L400.0001, M100.2200, [id number] #### [facility] [address] [place], [address] Basophil percentageOrdered B y: Brennon Ramirez on 06-15-2023 Chloride [Moles/Vol] 103 mmol/L 98-107 [facility] Glucose [Mass/Vol] 131 mg/dL 74-106 [facility] Comment on above: Fasting Glucose resu lt greater than or equal to 126 mg/dL suggests DIABETES MELLITUS per A.D.A. criteria. Hemoglobin (Bld) [Mass/Vol] 11.6 g/dL 12.0-15.0 [facility] Potassium [Moles/Vol] 4.3 mmol/L 3.5-5.1 [facility] Sodium [Moles/Vol] 136 mmol/L 136-145 [facility] WBC (Bld) [#/Vol] 15.4 10*3/uL 4.4-11.0 [facility] Determination of erythrocyte mean corpuscular volume (MCV)Ordered By: Brennon Ramirez on 06-15-2023 MCV (RBC) [Entitic vol] 87.6 fL 81-99 [facility] Erythrocyte distribution wid th ratioOrdered By: Brennon Ramirez on 06-15-2023 Erythrocyte distribution width (RBC) [Ratio] 12.2 % 11.6-14.6 [facility] Erythrocyte distribution wid th standard deviationOrdered By: Brennon Ramirez on 06-15-2023 Erythrocyte distribution width (RBC) [Entitic vol] 39.5 fL 35.1-43.9 [facility] Hematocrit Auto (Bld) [Volum e fraction]Ordered By: Brennon Ramirez on 06-15-2023 Hematocrit (Bld) [Volume fraction] 34.7 % 37-47 [facility] - Chemistry and C hemistry - challengeOrdered By: Brennon Ramirez on 06-15-2023 CO2 [Moles/Vol] 28.0 mmol/L 21.0-32.0 [facility] Urea nitrogen/Creatinine [Mass ratio] 16.4 mg/mg 10-20 [facility] - Hematology and Cell countsOrdered By: Brennon Ramirez on 06-15-2023 MCH (RBC) [Entitic mass] 29.3 pg 27.0-32.0 [facility] MCHC (RBC) [Mass/Vol] 33.4 g/dL 32-36 [facility] Platelet mean volume (Bld) [Entitic vol] 11.2 fL 6.2-12.0 [facility] Platelets (Bld) [#/Vol] 218 10*3/uL 150-450 [facility] No Panel InformationOrdered By: Brennon Ramirez on 06-15-2023 Estimated Creatinine Clearance Calc 64.64 ml/min [facility] Estimated GFR (MDRD) Amer 91 mL/min >60 [facility] Comment on above: GFR Calc Estimated GFR (MDRD) Non-Af Amer 75 mL/min >60 [facility] Comment on above: Non- GFR Calc RBC Auto (Bld) [#/Vol]Ordere d By: Brennon Ramirez on 06-15-2023 RBC (Bld) [#/Vol] 3.96 10*6/uL 4.2-5.4 [facility] Serum or plasma calcium josh urement (mass/volume)Ordered By: Brennon Ramirez on 06-15-2023 Calcium [Mass/Vol] 8.7 mg/dL 8.5-10.1 [facility] Serum or plasma creatinine m easurement (mass/volume)Ordered By: Brennon Ramirez on 06-15-2023 Creatinine [Mass/Vol] 0.79 mg/dL 0.55-1.02 [facility] Comment on above: The validity of the calculated GFR & GFRAA in patients over 70 years has not been determined. Clinical correlation is essential. Serum or plasma urea nitroge n measurement (mass/volume)Ordered By: Brennon Ramirez on 06-15-2023 Urea nitrogen [Mass/Vol] 13 mg/dL 7-18 [facility] Thin prep Papanicolaou smear with manual screeningOrdered By: Brennon Ramirez on 06-15-2023 Thin prep Papanicolaou smear with manual screening 5 5-15 [facility] Thin prep Papanicolaou smear with manual screeningOrdered By: Brennon Ramirez on 06-14-2023 Thin prep Papanicolaou smear with manual screening 90 mg/dL 74-106 [facility] Comment on above: MANAGEMENT OF PATIEN T CARE PER NURSING PROTOCOL Basophil percentageOrdered B y: Mayra Escobedo on 06-03-2023 Basophil percentage 25-50 SEEN /hpf 0-5 [facility] Bilirubin Test strip Ql (U)O rdered By: Mayra Escobedo on 06-03-2023 Bilirubin Ql (U) Negative Negative [facility] Ketones Test strip Ql (U)Ord ered By: Mayra Escobedo on 06-03-2023 Ketones Ql (U) Negative Negative [facility] Mucus LM Ql (Urine sed)Order ed By: Mayra Escobedo on 06-03-2023 Mucus Ql (Urine sed) 0 SEEN /hpf [facility] Nitrite Test strip Ql (U)Ord ered By: Mayra Escobedo on 06-03-2023 Nitrite Ql (U) Negative Negative [facility] No Panel InformationOrdered By: Mayra Escobedo on 06-03-2023 Urine RBC 0-5 SEEN /hpf 0-5 [facility] Protein Test strip Ql (U)Ord ered By: Mayra Escobedo on 06-03-2023 Protein Ql (U) 30 mg/dl Negative [facility] Squamous epithelial cells de tection in urine sediment by light microscopyOrdered By: Mayra Escobedo on 06-03-2023 Epithelial cells.squamous LM Ql (Urine sed) 10-25 SEEN /hpf 5-10 [facility] Urine blood detectionOrdered By: Mayra Escobedo on 06-03-2023 RBC Ql (U) 10 /ul Negative [facility] Urine clarityOrdered By: Adrián Escobedo on 06-03-2023 Clarity (U) Clear Clear [facility] Urine color determinationOrd ered By: Mayra Escobedo on 06-03-2023 Color (U) Yellow Yellow [facility] Urine glucose detectionOrder ed By: Mayra Escobedo on 06-03-2023 Glucose Ql (U) Normal mg/dl Normal [facility] Urine leukocyte esterase det ection by dipstickOrdered By: Mayra Escobedo on 06-03-2023 Leukocyte esterase Test strip Ql (U) 500 /ul Negative [facility] Urine pHOrdered By: Mayra Escobedo on 06-03-2023 pH (U) 6.0 [pH] 5.0 - 8.0 [facility] Urine sediment bacteria coun t by microscopy (number/high power field)Ordered By: Mayra Escobedo on 06-03-2023 Bacteria LM.HPF (Urine sed) [#/Area] 1 /[HPF] None Seen [facility] Urine specific gravity measu rementOrdered By: Mayra Escobedo on 06-03-2023 Specific gravity (U) [Rel density] 1.015 1.002-1.03 0 [facility] Urine urobilinogen measureme ntOrdered By: Mayra Escobedo on 06-03-2023 Urobilinogen Ql (U) Normal mg/dl Normal [facility] Absolute lymphocyte countOrd ered By: Brennon Ramirez on 06-02-2023 Lymphocytes Auto (Unsp spec) [#/Vol] 1.67 10*3/uL 0.83-4.51 [facility] Automated lymphocyte count a s percentage of total leukocytesOrdered By: Brennon Ramirez on 06-02-2023 Lymphocytes/100 WBC Auto (Unsp spec) 36.5 % 19-41 [facility] Basophil percentageOrdered B y: Mayra Escobedo on 06-02-2023 Bilirubin [Mass/Vol] 0.40 mg/dL 0.20-1.00 [facility] Comment on above: For patients on eltr ombopag therapy, use of Dimension [place] TBIL is not recommended. Chloride [Moles/Vol] 107 mmol/L 98-107 [facility] Cholesterol [Mass/Vol] 227 mg/dL <200 [facility] Comment on above: <200 mg/dL Desirable 200-240 mg/dL Borderline >240 mg/dL High Risk Glucose [Mass/Vol] 112 mg/dL 74-106 [facility] Comment on above: Fasting Glucose resu lt from 100 to 125 mg/dL suggests IMPAIRED HOMEOSTASIS per A.D.A. criteria. Potassium [Moles/Vol] 4.2 mmol/L 3.5-5.1 [facility] Protein [Mass/Vol] 7.1 g/dL 6.4-8.2 [facility] Sodium [Moles/Vol] 138 mmol/L 136-145 [facility] Triglyceride [Mass/Vol] 109 mg/dL <199 [facility] Comment on above: The drugs N-Acetylcy steine and Metamizole may falsely depress this assay.Serum Triglycerides Reference Interval Normal <150 mg/dL Borderline high 150 - 199 mg/dL High 200 - 499 mg/dL Very High > or = 500 mg/dL Basophil percentageOrdered B y: Brennon Ramirez on 06-02-2023 Basophils/100 WBC (Bld) 0.7 % 0-1 [facility] Eosinophils/100 WBC (Bld) 0.7 % 0-5 [facility] Monocytes/100 WBC (Bld) 11.6 % 0-10 [facility] Neutrophils (Bld) [#/Vol] 2.3 10*3/uL 2.0-7.7 [facility] Neutrophils/100 WBC (Bld) 50.3 % 47-70 [facility] Immature granulocytes/100 WB C Auto (Bld)Ordered By: Brennon Ramirez on 06-02-2023 Immature granulocytes/100 WBC (Bld) 0.200 % 0.0-0.9 [facility] Comment on above: IG% - Immature Granu locytes (promyelocytes, myelocytes and metamyelocytes) > 1% indicates that a LEFT SHIFT is Present. Laboratory - Chemistry and C hemistry - challengeOrdered By: Mayra Escobedo on 06-02-2023 Albumin/Globulin [Mass ratio] 1.2 {ratio} 0.9-2.4 [facility] ALP [Catalytic activity/Vol] 67 U/L 45-117 [facility] ALT [Catalytic activity/Vol] 24 U/L 13-56 [facility] Cholesterol in HDL [Mass/Vol] 59 mg/dL >40 [facility] Comment on above: The drugs N-Acetylcy steine and Metamizole may falsely depress this assay. Reference Range HDL <40 mg/dL Low HDL Cholesterol HDL >or= 60 mg/dL High HDL Cholesterol Cholesterol in LDL [Mass/Vol] 146 mg/dL 0-130 [facility] CO2 [Moles/Vol] 27.0 mmol/L 21.0-32.0 [facility] Globulin (S) [Mass/Vol] 3.3 g/dL 2.2-4.2 [facility] Urea nitrogen/Creatinine [Mass ratio] 17.7 mg/mg 10-20 [facility] Laboratory - Chemistry and C hemistry - challengeOrdered By: Moreno Mujica on 06-02-2023 Magnesium [Mass/Vol] 2.3 mg/dL 1.6-2.6 [facility] Laboratory - Hematology and Cell countsOrdered By: Brennon Ramirez on 06-02-2023 Nucleated RBC/100 WBC (Bld) [Ratio] 0 % 0-5 [facility] No Panel InformationOrdered By: Mayra Escobedo on 06-02-2023 Estimated GFR (MDRD) Amer 73 mL/min >60 [facility] Comment on above: GFR Calc Estimated GFR (MDRD) Non-Af Amer 61 mL/min >60 [facility] Comment on above: Non- GFR Calc Vitamin D 25-Hydroxy 69.0 ng/mL [facility] Comment on above: Vitamin D 25(OH) Sta tus Range Deficiency <20 ng/mL (50nmol/L) Insufficiency 20 - 30 ng/mL (50 - 75 nmol/L) Sufficiency 30 - 100 ng/mL (75 - 250 nmol/L) Toxicity >100 ng/mL (>250 nmol/L) VLDL Cholesterol 22 mg/dL 5-40 [facility] No Panel InformationOrdered By: Brennon Ramirez on 06-02-2023 Nasal Screen [facility] Serum or plasma calcium josh urement (mass/volume)Ordered By: Mayra Escobedo on 06-02-2023 Calcium [Mass/Vol] 9.2 mg/dL 8.5-10.1 [facility] Serum or plasma creatinine m easurement (mass/volume)Ordered By: Mayra Escobedo on 06-02-2023 Creatinine [Mass/Vol] 0.96 mg/dL 0.55-1.02 [facility] Comment on above: The validity of the calculated GFR & GFRAA in patients over 70 years has not been determined. Clinical correlation is essential. Serum or plasma thyroid stim ulating hormone (TSH) measurement (units/volume)Ordered By: Brennon Ramirez on 06-02-2023 TSH Qn 0.37 uIU/mL 0.358-3.74 [facility] Serum or plasma urea nitroge n measurement (mass/volume)Ordered By: Mayra Escobedo on 06-02-2023 Urea nitrogen [Mass/Vol] 17 mg/dL 7-18 [facility] Thin prep Papanicolaou smear with manual screeningOrdered By: Mayra Escobedo on 06-02-2023 Thin prep Papanicolaou smear with manual screening 3.8 g/dL 3.2-5.0 [facility] Thin prep Papanicolaou smear with manual screening 17 U/L 15-37 [facility] Thin prep Papanicolaou smear with manual screening 4 5-15 [facility] Thin prep Papanicolaou smear with manual screeningOrdered By: Brennon Ramirez on 06-02-2023 Thin prep Papanicolaou smear with manual screening 3.9 g/dL 3.2-5.0 [facility] HgA1C , Office ([id number])Ordere d By: Yuki Fischer on 12-14-2022 HbA1c (Bld) [Mass fraction] 5.5 % Normal 4.6 - 7.1 [facility] Work Phone: POTASSIUM SERUM ([id number])Order ed By: Bead Wire Insulator on 12-14-2022 Potassium [Moles/Vol] 5.0 mmol/L Normal 3.5-5.2 [facility] prehensive Internal Medicine; [facility] Work Phone: TSH (THYROID STIMULATING HOR COLIN) ([id number])Ordered By: Bead Wire Insulator on 12-14-2022 TSH Qn 14.100 {uIU/mL} Abnormal 0.450-4.50 0 [facility]; [facility] Work Phone: Absolute lymphocyte countOrd ered By: HEALTH ASSESSMENT on 12-09-2022 Lymphocytes Auto (Unsp spec) [#/Vol] 2.01 10*3/uL 0.83-4.51 [facility] Absolute reticulocyte countO rdered By: HEALTH ASSESSMENT on 12-09-2022 Reticulocytes (Bld) [#/Vol] 0.00 10*3/uL 0-5 [facility] Basophil percentageOrdered B y: HEALTH ASSESSMENT on 12-09-2022 Basophil percentage 3.8 mg/dL 2.5-4.9 [facility] Bilirubin [Mass/Vol] 0.40 mg/dL 0.20-1.00 [facility] Comment on above: For patients on eltr ombopag therapy, use of Dimension [place] TBIL is not recommended. Chloride [Moles/Vol] 107 mmol/L 98-107 [facility] Cholesterol [Mass/Vol] 242 mg/dL <200 [facility] Comment on above: <200 mg/dL Desirable 200-240 mg/dL Borderline >240 mg/dL High Risk Glucose [Mass/Vol] 105 mg/dL 74-106 [facility] Comment on above: Fasting Glucose resu lt from 100 to 125 mg/dL suggests IMPAIRED HOMEOSTASIS per A.D.A. criteria. LDH [Catalytic activity/Vol] 212 U/L 84-246 [facility] Neutrophils (Bld) [#/Vol] 4.1 10*3/uL 2.0-7.7 [facility] Potassium [Moles/Vol] 5.2 mmol/L 3.5-5.1 [facility] Protein [Mass/Vol] 7.1 g/dL 6.4-8.2 [facility] Sodium [Moles/Vol] 139 mmol/L 136-145 [facility] Triglyceride [Mass/Vol] 100 mg/dL <199 [facility] Comment on above: The drugs N-Acetylcy steine and Metamizole may falsely depress this assay.Serum Triglycerides Reference Interval Normal <150 mg/dL Borderline high 150 - 199 mg/dL High 200 - 499 mg/dL Very High > or = 500 mg/dL WBC (Bld) [#/Vol] 6.9 10*3/uL 4.4-11.0 [facility] Blood erythrocytes count (nu mber/volume)Ordered By: HEALTH ASSESSMENT on 12-09-2022 RBC (Bld) [#/Vol] 4.66 10*6/uL 4.2-5.4 [facility] Blood hemoglobin measurement (mass/volume)Ordered By: HEALTH ASSESSMENT on 12-09-2022 Hemoglobin (Bld) [Mass/Vol] 13.6 g/dL 12.0-15.0 [facility] Blood platelet mean volumeOr dered By: HEALTH ASSESSMENT on 12-09-2022 Platelet mean volume (Bld) [Entitic vol] 10.9 fL 6.2-12.0 [facility] Determination of erythrocyte mean corpuscular volume (MCV)Ordered By: HEALTH ASSESSMENT on 12-09-2022 MCV (RBC) [Entitic vol] 91.4 fL 81-99 [facility] Direct bilirubinOrdered By: HEALTH ASSESSMENT on 12-09-2022 Bilirubin.direct [Mass/Vol] 0.12 mg/dL 0.00-0.30 [facility] Hematocrit Auto (Bld) [Volum e fraction]Ordered By: HEALTH ASSESSMENT on 12-09-2022 Hematocrit (Bld) [Volume fraction] 42.6 % 37-47 [facility] Laboratory - Chemistry and C hemistry - challengeOrdered By: HEALTH ASSESSMENT on 12-09-2022 ALP [Catalytic activity/Vol] 82 U/L 45-117 [facility] ALT [Catalytic activity/Vol] 25 U/L 13-56 [facility] Cholesterol.total/Chol esterol in HDL [Mass ratio] 4.00 {ratio} [facility] CO2 [Moles/Vol] 28.0 mmol/L 21.0-32.0 [facility] Globulin (S) [Mass/Vol] 3.3 g/dL 2.2-4.2 [facility] Urea nitrogen/Creatinine [Mass ratio] 19.4 mg/mg 12-09 [facility] Laboratory - Hematology and Cell countsOrdered By: HEALTH ASSESSMENT on 12-09-2022 Erythrocyte distribution width (RBC) [Entitic vol] 42.8 fL 35.1-43.9 [facility] Erythrocyte distribution width (RBC) [Ratio] 12.8 % 11.6-14.6 [facility] MCH (RBC) [Entitic mass] 29.2 pg 27.0-32.0 [facility] Nucleated RBC/100 WBC (Bld) [Ratio] 0 % 0-5 [facility] MCHC Auto (RBC) [Mass/Vol]Or dered By: HEALTH ASSESSMENT on 12-09-2022 MCHC (RBC) [Mass/Vol] 31.9 g/dL 32-36 [facility] No Panel InformationOrdered By: HEALTH ASSESSMENT on 12-09-2022 Estimated GFR (MDRD) Amer 76 mL/min >60 [facility] Comment on above: GFR Calc Estimated GFR (MDRD) Non-Af Amer 63 mL/min >60 [facility] Comment on above: Non- GFR Calc Platelets bldOrdered By: PORTER LT ASSESSMENT on 12-09-2022 Platelets (Bld) [#/Vol] 227 10*3/uL 150-450 [facility] Segmented neutrophils/100 WB C Auto (Bld)Ordered By: HEALTH ASSESSMENT on 12-09-2022 Segmented neutrophils/100 WBC (Bld) 59.8 % 47-70 [facility] Serum or plasma albumin josh urement (mass/volume)Ordered By: HEALTH ASSESSMENT on 12-09-2022 Albumin [Mass/Vol] 3.8 g/dL 3.2-5.0 [facility] Serum or plasma albumin/glob ulin mass ratioOrdered By: HEALTH ASSESSMENT on 12-09-2022 Albumin/Globulin [Mass ratio] 1.2 {ratio} 0.9-2.4 [facility] Serum or plasma calcium josh urement (mass/volume)Ordered By: HEALTH ASSESSMENT on 12-09-2022 Calcium [Mass/Vol] 9.3 mg/dL 8.5-10.1 [facility] Serum or plasma cholesterol in HDL measurement (mass/volume)Ordered By: HEALTH ASSESSMENT on 12-09-2022 Cholesterol in HDL [Mass/Vol] 60 mg/dL >40 [facility] Comment on above: The drugs N-Acetylcy steine and Metamizole may falsely depress this assay. Reference Range HDL <40 mg/dL Low HDL Cholesterol HDL >or= 60 mg/dL High HDL Cholesterol Serum or plasma cholesterol in VLDL measurement (mass/volume)Ordered By: HEALTH ASSESSMENT on 12-09-2022 Cholesterol in VLDL [Mass/Vol] 20 mg/dL 5-40 [facility] Serum or plasma creatinine m easurement (mass/volume)Ordered By: HEALTH ASSESSMENT on 12-09-2022 Creatinine [Mass/Vol] 0.93 mg/dL 0.55-1.02 [facility] Comment on above: The validity of the calculated GFR & GFRAA in patients over 70 years has not been determined. Clinical correlation is essential. Serum or plasma low density lipoprotein (LDL) cholesterol measurement (mass/volume)Ordered By: HEALTH ASSESSMENT on 12-09-2022 Cholesterol in LDL [Mass/Vol] 162 mg/dL 0-130 [facility] Serum or plasma urea nitroge n measurement (mass/volume)Ordered By: HEALTH ASSESSMENT on 12-09-2022 Urea nitrogen [Mass/Vol] 18 mg/dL 7-18 [facility] Serum or plasma uric acid me asurement (mass/volume)Ordered By: HEALTH ASSESSMENT on 12-09-2022 Urate [Mass/Vol] 5.3 mg/dL 2.6-6.0 [facility] Comment on above: The drugs N-Acetylcy steine and Metamizole may falsely depress this assay. Thin prep Papanicolaou smear with manual screeningOrdered By: HEALTH ASSESSMENT on 12-09-2022 Thin prep Papanicolaou smear with manual screening 18 U/L 15-37 [facility] Thin prep Papanicolaou smear with manual screening 4 5-15 [facility] Absolute lymphocyte countOrd ered By: Mayra Escobedo on 07-01-2022 Lymphocytes Auto (Unsp spec) [#/Vol] 2.21 10*3/uL 0.83-4.51 [facility] Basophil percentageOrdered B y: Mayra Escobedo on 07-01-2022 Basophils/100 WBC (Bld) 0.1 % 0-1 [facility] Bilirubin [Mass/Vol] 0.40 mg/dL 0.20-1.00 [facility] Comment on above: For patients on eltr ombopag therapy, use of Dimension [place] TBIL is not recommended. Chloride [Moles/Vol] 103 mmol/L 98-107 [facility] Eosinophils/100 WBC (Bld) 0.1 % 0-5 [facility] Glucose [Mass/Vol] 112 mg/dL 74-106 [facility] Comment on above: Fasting Glucose resu lt from 100 to 125 mg/dL suggests IMPAIRED HOMEOSTASIS per A.D.A. criteria. Neutrophils (Bld) [#/Vol] 4.9 10*3/uL 2.0-7.7 [facility] Neutrophils/100 WBC (Bld) 62.8 % 47-70 [facility] Potassium [Moles/Vol] 4.5 mmol/L 3.5-5.1 [facility] Protein [Mass/Vol] 7.2 g/dL 6.4-8.2 [facility] Sodium [Moles/Vol] 137 mmol/L 136-145 [facility] WBC (Bld) [#/Vol] 7.8 10*3/uL 4.4-11.0 [facility] Blood erythrocytes count (nu mber/volume)Ordered By: Mayra Escobedo on 07-01-2022 RBC (Bld) [#/Vol] 4.39 10*6/uL 4.2-5.4 [facility] Blood hemoglobin measurement (mass/volume)Ordered By: Mayra Escobedo on 07-01-2022 Hemoglobin (Bld) [Mass/Vol] 12.9 g/dL 12.0-15.0 [facility] Blood lymphocytes/100 leukoc ytesOrdered By: Mayra Escobedo on 07-01-2022 Lymphocytes/100 WBC (Bld) 28.2 % 19-41 [facility] Blood monocytes/100 leukocyt esOrdered By: Mayra Escobedo on 07-01-2022 Monocytes/100 WBC (Bld) 8.4 % 0-10 [facility] Blood platelet mean volumeOr dered By: Mayra Escobedo on 07-01-2022 Platelet mean volume (Bld) [Entitic vol] 11.0 fL 6.2-12.0 [facility] Determination of erythrocyte mean corpuscular volume (MCV)Ordered By: Mayra Escobedo on 07-01-2022 MCV (RBC) [Entitic vol] 90.7 fL 81-99 [facility] Erythrocyte sedimentation ra teOrdered By: Mayra Escobedo on 07-01-2022 ESR (Bld) [Velocity] 8 mm/h 0-30 [facility] Hematocrit Auto (Bld) [Volum e fraction]Ordered By: Mayra Escobedo on 07-01-2022 Hematocrit (Bld) [Volume fraction] 39.8 % 37-47 [facility] Laboratory - Chemistry and C hemistry - challengeOrdered By: Mayra Escobedo on 07-01-2022 ALP [Catalytic activity/Vol] 77 U/L 45-117 [facility] ALT [Catalytic activity/Vol] 34 U/L 13-56 [facility] CO2 [Moles/Vol] 28.0 mmol/L 21.0-32.0 [facility] Globulin (S) [Mass/Vol] 3.2 g/dL 2.2-4.2 [facility] Urea nitrogen/Creatinine [Mass ratio] 17.5 mg/mg 10-20 [facility] Laboratory - Hematology and Cell countsOrdered By: Mayra Escobedo on 07-01-2022 Erythrocyte distribution width (RBC) [Entitic vol] 43.4 fL 35.1-43.9 [facility] Erythrocyte distribution width (RBC) [Ratio] 13.1 % 11.6-14.6 [facility] Immature granulocytes/100 WBC (Bld) 0.400 % 0.0-0.9 [facility] Comment on above: IG% - Immature Granu locytes (promyelocytes, myelocytes and metamyelocytes) > 1% indicates that a LEFT SHIFT is Present. MCH (RBC) [Entitic mass] 29.4 pg 27.0-32.0 [facility] Nucleated RBC/100 WBC (Bld) [Ratio] 0 % 0-5 [facility] MCHC Auto (RBC) [Mass/Vol]Or dered By: Mayra Escobedo on 07-01-2022 MCHC (RBC) [Mass/Vol] 32.4 g/dL 32-36 [facility] No Panel InformationOrdered By: Mayra Escobedo on 07-01-2022 C-Reactive Protein High Sensitivity 3.08 mg/L <3.00 [facility] Comment on above: Low Relative Risk of CVD <1.0 mg/L Average Relative Risk of CVD 1.0 - 3.0 mg/L High Relative Risk of CVD >3.0 mg/L Estimated GFR (MDRD) Amer 72 mL/min >60 [facility] Comment on above: GFR Calc Estimated GFR (MDRD) Non-Af Amer 60 mL/min >60 [facility] Comment on above: Non- GFR Calc Platelets bldOrdered By: Adrián Escobedo on 07-01-2022 Platelets (Bld) [#/Vol] 239 10*3/uL 150-450 [facility] Serum or plasma albumin josh urement (mass/volume)Ordered By: Mayra Escobedo on 07-01-2022 Albumin [Mass/Vol] 4.0 g/dL 3.2-5.0 [facility] Serum or plasma albumin/glob ulin mass ratioOrdered By: Mayra Escobedo on 07-01-2022 Albumin/Globulin [Mass ratio] 1.2 {ratio} 0.9-2.4 [facility] Serum or plasma calcium josh urement (mass/volume)Ordered By: Mayra Escobedo on 07-01-2022 Calcium [Mass/Vol] 9.4 mg/dL 8.5-10.1 [facility] Serum or plasma creatinine m easurement (mass/volume)Ordered By: Mayra Escobedo on 07-01-2022 Creatinine [Mass/Vol] 0.97 mg/dL 0.55-1.02 [facility] Comment on above: The validity of the calculated GFR & GFRAA in patients over 70 years has not been determined. Clinical correlation is essential. Serum or plasma urea nitroge n measurement (mass/volume)Ordered By: Mayra Escobedo on 07-01-2022 Urea nitrogen [Mass/Vol] 17 mg/dL 7-18 [facility] Thin prep Papanicolaou smear with manual screeningOrdered By: Mayra Escobedo on 07-01-2022 Thin prep Papanicolaou smear with manual screening 17 U/L 15-37 [facility] Thin prep Papanicolaou smear with manual screening 6 5-15 [facility] Rapid Strep Test, Office ([phone])Ordered By: Briana Fitzgerald on 10-25-2018 S. pyogenes Ag EIA Ql (Throat) Negative Normal [facility]; [facility] Work Phone: S. pyogenes Ag IA Ql (Unsp spec) Negative Normal [facility] Work Phone: THROAT CULTURE ([id number])Ordere d By: Bead Wire Insulator on 10-25-2018 Bacteria identified Respiratory culture Nom (Unsp spec) Final report Normal [facility] Work Phone: Comment on above: PATIENT NOT FASTINGP ERFORMED BY: [employer] [id number] [place] AircrmMaria [facility] [id number] Information: [id number] SRC:TH Bacteria identified Respiratory culture Nom (Unsp spec) RRF Normal [facility] Work Phone: Comment on above: Routine respiratory ventura PATIENT NOT FASTINGP ERFORMED BY: [employer] [facility] [id number] [place] [id number] Information: [id number] SRC:TH Throat Culture ([id number])Ordere d By: Bead Wire Insulator on 07-18-2018 Bacteria identified Respiratory culture Nom (Unsp spec) RRF Normal [facility] Work Phone: Comment on above: Routine respiratory ventura PERFORMED BY: [employer] [id number] Neli TechnologiesMaria [facility] Health [id number] Information: SRC:TH Bacteria identified Respiratory culture Nom (Unsp spec) Final report Normal [facility] Work Phone: Comment on above: PERFORMED BY: [employer] [id number] [place] TicketBiscuitAt[facility] [id number] Information: SRC:TH THROAT CULTURE ([id number])Ordere d By: Bead Wire Insulator on 06-19-2018 Bacteria identified Respiratory culture Nom (Unsp spec) BETAGC Abnormal [facility] Work Phone: Comment on above: Beta hemolytic Strep tococcus, group CLight growthPenicillin and ampicillin are drugs of choice for treatment ofbeta-hemolytic streptococcal infections. Susceptibility testing ofpenicillins and other beta-lactam agents approved by the FDA fortreatment of beta-hemolytic streptococcal infections need not beperformed routinely because nonsusceptible isolates are extremelyrare in any beta-hemolytic streptococcus and have not been reportedfor Streptococcus pyogenes (group A). (CLSI) PATIENT NOT FASTINGP ERFORMED BY: [employer] [facility] [id number] [place] TicketBiscuitAdventhealthin [place] [id number] Information: SRC:TH Bacteria identified Respiratory culture Nom (Unsp spec) Final report Abnormal [facility] Work Phone: Comment on above: PATIENT NOT FASTINGP ERFORMED BY: [facility] [id number] Johanna AngelAt[facility] [id number] Information: SRC:TH CBC, EmployeeOrdered By: Timi tem Pneumatic Tester on 11-09-2017 Absolute Lymph 1.87 {X10_3/ul} Normal 0.83-4.51 Compr ehens[facility] Work Phone: Absolute Neut 3.0 {X10_3/uL} Normal 2.0-7.7 Compreh ensive [facility] Work Phone: Basophils/100 WBC Auto (Bld) 0.5 % Normal 0-1 [facility] Work Phone: Eosinophils/100 WBC Auto (Bld) 2.3 % Normal 0-5 [facility] Work Phone: Erythrocyte distribution width Auto Ratio (RBC) 12.6 % Normal 11.6-14.6 [facility] Work Phone: Hematocrit Auto Volume Fraction (Bld) 40.3 % Normal 37-47 [facility] Work Phone: Hemoglobin mass conc (Bld) 13.2 g/dL Normal 12.0-15.0 [facility] Work Phone: Lymphocytes/100 WBC Auto (Bld) 33.5 % Normal 19-41 [facility] Work Phone: MCH Auto Entitic mass (RBC) 29.5 pg Normal 27.0-32.0 [facility] Work Phone: MCHC Auto mass conc (RBC) 32.8 {g/gl} Normal 32-36 [facility] Work Phone: MCV Auto Entitic volume (RBC) 90.2 fL Normal 81-99 [facility] Work Phone: Monocytes/100 WBC Auto (Bld) 10.0 % Normal 0-10 [facility] Work Phone: Neutrophils/100 WBC Auto (Bld) 53.3 % Normal 47-70 [facility] Work Phone: Platelet mean volume Auto Entitic volume (Bld) 11.3 fL Normal 6.2-12.0 [facility] Work Phone: Platelets Auto #/vol (Bld) 230 10*3/uL Normal 150-450 [facility] Work Phone: RBC Auto #/vol (Bld) 4.47 {M/mm3} Normal 4.2-5.4 [facility] Work Phone: RDW SD 41.0 fL Normal 35.1-43.9 [facility] Work Phone: WBC Auto #/vol (Bld) 5.6 10*3/uL Normal 4.4-11.0 [facility] Work Phone: Employee ProfileOrdered By: Bead Wire Insulator on 11-09-2017 A/G 1.2 {RATIO} Normal 0.9-2.4 [facility] Work Phone: Albumin mass conc 4.0 g/dL Normal 3.2-5.[address] [facility] Work Phone: ALP enzyme act/vol 93 U/L Normal 45-117 Compre [facility] Internal Medicine Work Phone: ALT enzyme act/vol 32 U/L Normal 13-56 [facility] Internal [facility] Work Phone: AST enzyme act/vol 20 U/L Normal 15-37 [facility] Work Phone: Bilirubin mass conc 0.40 mg/dL Normal 0.20-1.00 [facility] Internal Medicine Work Phone: Bilirubin.direct mass conc 0.11 mg/dL Normal 0.00-0.30 [facility] Work Phone: BUN/CRE 17.9 {RATIO} Normal 10-20 Comprehens[facility] e [facility] Work Phone: Calcium mass conc 9.1 mg/dL Normal 8.5-10.1 [facility] ensive Internal Medicine Work Phone: Chloride molar conc 105 mmol/L Normal 98-107 Compr ensive [facility] Medicine Work Phone: CHOL:HDL 3.00 1 Normal [facility] Work Phone: Cholesterol in HDL mass conc 62 mg/dL Normal [facility] Work Phone: Comment on above: The drugs N-Acetylcy steine and Metamizole may falselydepress this assay. Reference Range HDL <40 mg/dL Low HDL Cholesterol HDL >or= 60 mg/dL High HDL Cholesterol Cholesterol in LDL mass conc 106 mg/dL Normal 0-130 [facility] Work Phone: Cholesterol in VLDL mass conc 21 mg/dL Normal 5-40 [facility] Work Phone: Cholesterol mass conc 189 mg/dL Normal Com prehensive [facility] Work Phone: Comment on above: <200 mg/dL Desirable 200-240 mg/dL Borderline >240 mg/dL High Risk CO2 molar conc 28.0 mmol/L Normal 21.0-32.0 Comprehen sive [facility] Work Phone: Creatinine mass conc 0.95 mg/dL Normal 0.55-1.02 Comp rehensive [facility] Work Phone: Comment on above: The validity of the calculated GFR AND GFRAA in patients over70 years has not been determined. Clinical correlation isessential. EST GFR - AA 75 mL/min Normal Com[facility] e [facility] Work Phone: Comment on above: GFR Calc GAP 5 1 Normal 5-15 [facility] Work Phone: GFR/1.73 sq M predicted among non-blacks MDRD vol rate/area (S/P/Bld) 62 mL/min/{1.73_m2} Normal Comprehe nsive [facility] Medicine Work Phone: Comment on above: Non- GFR Calc Globulin Calculated mass conc (S) 3.4 g/dL Normal 2.2-4.2 [facility] Work Phone: Glucose mass conc 97 mg/dL Normal 74-106 Compreh ensive [facility] Work Phone: Comment on above: Please note revised GLUCOSE reference range [id number]/2018. LDH 209 U/L Normal 84-246 [facility] Work Phone: Phosphate mass conc 4.1 mg/dL Normal 2.5-4.9 Compr ehensive [facility] Work Phone: Potassium molar conc 5.3 mmol/L Abnormal 3.5-5.1 Comp rehensive [facility] Work Phone: Protein mass conc 7.4 g/dL Normal 6.4-8.2 Compreh ensive [facility] Work Phone: Sodium molar conc 138 mmol/L Normal 136-145 Compreh ensive [facility] Work Phone: Triglyceride mass conc 103 mg/dL Normal Co mprehensive [facility] Work Phone: Comment on above: The drugs N-Acetylcy steine and Metamizole may falselydepress this assay.Serum Triglycerides Reference Interval Normal <150 mg/dL Borderline high 150 - 199 mg/dL High 200 - 499 mg/dL Very High > or = 500 mg/dL Urea nitrogen mass conc 17 mg/dL Normal 7-18 [facility] Work Phone: URIC 4.6 mg/dL Normal 2.6-6.0 [facility] Work Phone: Comment on above: The drugs N-Acetylcy steine and Metamizole may falselydepress this assay. Nicotine Urine Drug ScreenOr dered By: Bead Wire Insulator on 11-09-2017 COT DRG SCREEN Negative [facility] Work Phone: Comment on above: Cotinine is the firs t-stage metabolite of Nicotine. TO BE CONFIRMED Normal [facility] Work Phone: Comment on above: CONFIRMATORY TESTING FOR ALL POSITIVE URINE DRUG SCREENRESULTS WILL ONLY BE SENT OUT UPON PHYSICIAN ORDER.The results of Urine Drug Screen methods provide onlypreliminary analytical test results. A more specificalternate chemical method must be used in order to obtain aconfirmed analytical result. Gas chromatography/massspectrometery (GC/MS) is the preferred confirmatory method.Clinical consideration and professional judgement should beapplied to any drug of abuse test result, particularly whenpreliminary positive results are used. Urinalysis, EmployeeOrdered By: Bead Wire Insulator on 11-09-2017 CLARITY Clear Normal [facility] Work Phone: COLOR Yellow Normal [facility] Work Phone: GLUCOSE, UR Normal Normal [facility] Work Phone: LEUK ESTERASE 500 /ul Abnormal Comprehensi ve Internal Medicine Work Phone: OCCULT BLOOD-UR Negative Normal Comprehen sive [facility] Work Phone: pH UR 6.0 1 Normal 5.0 - 8.0 [facility] Work Phone: SP.GR. DIPSTX 1.015 1 Normal 1.002-1.03 0 [facility] Work Phone: CBC, EmployeeOrdered By: Timi tem Pneumatic Tester on 11-10-2016 Absolute Lymph 1.74 {X10_3/ul} Normal 0.83-4.51 Compr ehensive [facility] Work Phone: Absolute Neut 3.1 {X10_3/uL} Normal 2.0-7.7 Compreh ensive [facility] Work Phone: Basophils/100 WBC Auto (Bld) 0.6 % Normal 0-1 [facility] Work Phone: Eosinophils/100 WBC Auto (Bld) 0.0 % Normal 0-5 [facility] Work Phone: Erythrocyte distribution width Auto Ratio (RBC) 13.1 % Normal 11.6-14.6 [facility] Work Phone: Hematocrit Auto Volume Fraction (Bld) 40.2 % Normal 37-47 [facility] Work Phone: Hemoglobin mass conc (Bld) 12.8 g/dL Normal 12.0-15.0 [facility] Work Phone: Lymphocytes/100 WBC Auto (Bld) 32.2 % Normal 19-41 [facility] Work Phone: MCH Auto Entitic mass (RBC) 28.6 pg Normal 27.0-32.0 [facility] Work Phone: MCHC Auto mass conc (RBC) 31.8 {g/gl} Abnormal 32-36 [facility] Work Phone: MCV Auto Entitic volume (RBC) 89.7 fL Normal 81-99 [facility] Work Phone: Monocytes/100 WBC Auto (Bld) 9.3 % Normal 0-10 [facility] Work Phone: Neutrophils/100 WBC Auto (Bld) 57.7 % Normal 47-70 [facility] Work Phone: Platelet mean volume Auto Entitic volume (Bld) 10.8 fL Normal 6.2-12.0 [facility] Work Phone: Platelets Auto #/vol (Bld) 231 10*3/uL Normal 150-450 [facility] Work Phone: RBC Auto #/vol (Bld) 4.48 {M/mm3} Normal 4.2-5.4 [facility] Work Phone: RDW SD 43.1 fL Normal 35.1-43.9 [facility] Work Phone: WBC Auto #/vol (Bld) 5.4 10*3/uL Normal 4.4-11.0 [facility] Work Phone: Employee ProfileOrdered By: Bead Wire Insulator on 11-10-2016 A/G 1.2 {RATIO} Normal 0.9-2.4 [facility] Work Phone: Albumin mass conc 4.0 g/dL Normal 3.4-5.0 [facility] Work Phone: ALP enzyme act/vol 90 U/L Normal 45-117 [facility] Work [facility]: ALT enzyme act/vol 24 U/L Normal 12-78 [facility] Work Phone: AST enzyme act/vol 14 U/L Abnormal 15-37 [facility] Work Phone: Bilirubin mass conc 0.50 mg/dL Normal 0.20-1.00 [facility] Medicine Work Phone: Bilirubin.direct mass conc 0.06 mg/dL Normal 0.00-0.30 [facility] Work Phone: BUN/CRE 17.3 {RATIO} Normal 10-20 [facility] Work Phone: Calcium mass conc 8.8 mg/dL Normal 8.5-10.1 [facility] Work Phone: Chloride molar conc 104 mmol/L Normal 98-107 [facility] Work Phone: CHOL:HDL 4.20 1 Normal [facility] Work Phone: Cholesterol in HDL mass conc 67 mg/dL Normal [facility] Work Phone: Comment on above: The drugs N-Acetylcy steine and Metamizole may falselydepress this assay. Reference Range HDL <40 mg/dL Low HDL Cholesterol HDL >or= 60 mg/dL High HDL Cholesterol Cholesterol in LDL mass conc 186 mg/dL Abnormal 0-130 [facility] Work Phone: Cholesterol in VLDL mass conc 26 mg/dL Normal 5-40 [facility] Work Phone: Cholesterol mass conc 279 mg/dL Abnormal Com prehens[facility] Work Phone: Comment on above: <200 mg/dL Desirable 200-240 mg/dL Borderline >240 mg/dL High Risk CO2 molar conc 25.0 mmol/L Normal 21.0-32.0 [facility] Work Phone: Creatinine mass conc 0.98 mg/dL Normal 0.55-1.02 [facility] rehens[facility] Work Phone: Comment on above: The validity of the calculated GFR AND GFRAA in patients over70 years has not been determined. Clinical correlation isessential. EST GFR - AA 73 mL/min Normal [facility] Work Phone: Comment on above: GFR Calc GAP 10 1 Normal 5-15 [facility] Work Phone: GFR/1.73 sq M predicted among non-blacks MDRD vol rate/area (S/P/Bld) 60 mL/min/{1.73_m2} Normal Com[facility] ns[facility] Work Phone: Comment on above: Non- GFR Calc Globulin Calculated mass conc (S) 3.4 g/dL Normal 2.3-3.5 [facility] Work Phone: Glucose mass conc 96 mg/dL Normal 70-110 [facility] Work Phone: LDH 203 U/L Normal 84-246 [facility] Work Phone: Phosphate mass conc 3.9 mg/dL Normal 2.5-4.9 [facility]pr e[facility] Work Phone: Potassium molar conc 4.4 mmol/L Normal 3.5-5.1 Comp rehens[facility] Work Phone: Protein mass conc 7.4 g/dL Normal 6.4-8.2 [facility] Work Phone: Sodium molar conc 139 mmol/L Normal 136-145 [facility] Work Phone: Triglyceride mass conc 130 mg/dL Normal [facility] Work Phone: Comment on above: The drugs N-Acetylcy steine and Metamizole may falselydepress this assay.Serum Triglycerides Reference Interval Normal <150 mg/dL Borderline high 150 - 199 mg/dL High 200 - 499 mg/dL Very High > or = 500 mg/dL Urea nitrogen mass conc 17 mg/dL Normal 7-18 [facility] Work Phone: URIC 5.1 mg/dL Normal 2.6-6.0 [facility] Work Phone: Comment on above: The drugs N-Acetylcy steine and Metamizole may falselydepress this assay. Nicotine Urine Drug ScreenOr dered By: Bead Wire Insulator on 11-10-2016 COT DRG SCREEN Negative Normal [facility] Work Phone: Comment on above: Cotinine is the firs t-stage metabolite of Nicotine. TO BE CONFIRMED Normal Comprehen s[facility] Work Phone: Comment on above: CONFIRMATORY TESTING FOR ALL POSITIVE URINE DRUG SCREENRESULTS WILL ONLY BE SENT OUT UPON PHYSICIAN ORDER.The results of Urine Drug Screen methods provide onlypreliminary analytical test results. A more specificalternate chemical method must be used in order to obtain aconfirmed analytical result. Gas chromatography/massspectrometery (GC/MS) is the preferred confirmatory method.Clinical consideration and professional judgement should beapplied to any drug of abuse test result, particularly whenpreliminary positive results are used. Urinalysis, EmployeeOrdered By: Bead Wire Insulator on 11-10-2016 BILIRUBIN URINE Negative Normal [facility] Work Phone: CLARITY Clear Normal [facility] Work Phone: COLOR Yellow Normal [facility] Work Phone: GLUCOSE, UR Normal Normal [facility] Work Phone: LEUK ESTERASE 100 /ul Abnormal [facility] Work Phone: pH UR 6.0 1 Normal 5.0 - 8.0 [facility] Work Phone: SP.GR. DIPSTX 1.010 1 Normal 1.002-1.03 0 [facility] Work Phone: CBC, EmployeeOrdered By: Timi tem Pneumatic Tester on 11-05-2015 Absolute Lymph 1.70 {X10_3/ul} Normal 0.83-4.51 [facility]pr e[facility] Work Phone: Absolute Neut 3.6 {X10_3/uL} Normal 2.0-7.7 [facility] Work Phone: Basophils/100 WBC Auto (Bld) 0.3 % Normal 0-1 [facility] Work Phone: Eosinophils/100 WBC Auto (Bld) 0.5 % Normal 0-5 [facility] Work Phone: Erythrocyte distribution width Auto Ratio (RBC) 13.1 % Normal 11.6-14.6 [facility] Work Phone: Hematocrit Auto Volume Fraction (Bld) 41.3 % Normal 37-47 [facility] Work Phone: Hemoglobin mass conc (Bld) 13.5 g/dL Normal 12.0-15.0 [facility] Work Phone: Lymphocytes/100 WBC Auto (Bld) 29.4 % Normal 19-41 [facility] Work Phone: MCH Auto Entitic mass (RBC) 29.2 pg Normal 27.0-32.0 [facility] Work Phone: MCHC Auto mass conc (RBC) 32.7 {g/gl} Normal 32-36 [facility] Work Phone: MCV Auto Entitic volume (RBC) 89.2 fL Normal 81-99 [facility] Work Phone: Monocytes/100 WBC Auto (Bld) 7.8 % Normal 0-10 [facility] Work Phone: Neutrophils/100 WBC Auto (Bld) 61.8 % Normal 47-70 [facility] Work Phone: Platelet mean volume Auto Entitic volume (Bld) 11.0 fL Normal 6.2-12.0 [facility] Work Phone: Platelets Auto #/vol (Bld) 228 10*3/uL Normal 150-450 [facility] Work Phone: RBC Auto #/vol (Bld) 4.63 {M/mm3} Normal 4.2-5.4 [facility] Work Phone: RDW SD 42.6 fL Normal 35.1-43.9 [facility] Work Phone: WBC Auto #/vol (Bld) 5.8 10*3/uL Normal 4.4-11.0 [facility] prehensive Internal Medicine Work Phone: Employee ProfileOrdered By: Bead Wire Insulator on 11-05-2015 A/G 1.1 {RATIO} Normal 0.9-2.4 [facility] Work Phone: Albumin mass conc 3.8 g/dL Normal 3.4-5.0 [facility] Work Phone: ALP enzyme act/vol 96 U/L Normal 50-136 [facility] Work Phone: ALT enzyme act/vol 23 U/L Normal 12-78 [facility] Work Phone: AST enzyme act/vol 14 U/L Abnormal 15-37 [facility] Work Phone: Bilirubin mass conc 0.30 mg/dL Normal 0.20-1.00 [facility] Work Phone: Bilirubin.direct mass conc 0.08 mg/dL Normal 0.00-0.30 [facility] Work Phone: BUN/CRE 17.2 {RATIO} Normal 10-20 [facility] Work Phone: Calcium mass conc 8.4 mg/dL Abnormal 8.5-10.[address] [facility] Work Phone: Chloride molar conc 109 mmol/L Abnormal 98-107 [facility] Work Phone: CHOL:HDL 4.60 1 Normal [facility] Work Phone: Cholesterol in HDL mass conc 60 mg/dL Normal [facility] Work Phone: Comment on above: The drugs N-Acetylcy steine and Metamizole may falsely deressthis assay. Reference Range HDL <40 mg/dL Low HDL Cholesterol HDL >or= 60 mg/dL High HDL Cholesterol Cholesterol in LDL mass conc 195 mg/dL Abnormal 0-130 [facility] Work Phone: Cholesterol in VLDL mass conc 24 mg/dL Normal 5-40 [facility] Work Phone: Cholesterol mass conc 279 mg/dL [facility]normal [facility] Work [facility]: Comment on above: <200 mg/dL Desirable 200-240 mg/dL Borderline >240 mg/dL High Risk CO2 molar conc 29.0 mmol/L Normal 21.0-32.0 [facility] Work Phone: Creatinine mass conc 0.93 mg/dL Normal 0.55-1.20 [facility] Work Phone: Comment on above: The validity of the calculated GFR AND GFRAA in patients over70 years has not been determined. Clinical correlation isessential. EST GFR - AA 78 mL/min Normal [facility] Work Phone: Comment on above: GFR Calc GAP 5 1 Normal 5-15 [facility] Work Phone: GFR/1.73 sq M predicted among non-blacks MDRD vol rate/area (S/P/Bld) 64 mL/min/{1.73_m2} Normal [facility] ns[facility] Work Phone: Comment on above: Non- GFR Calc Globulin Calculated mass conc (S) 3.4 g/dL Normal 2.3-3.5 [facility] Work Phone: Glucose mass conc 93 mg/dL Normal 70-110 [facility] Work Phone: LDH 217 U/L Normal 84-246 [facility] Work Phone: Phosphate mass conc 3.5 mg/dL Normal 2.5-4.9 Compr ehens[facility] Work Phone: Potassium molar conc 4.7 mmol/L Normal 3.5-5.1 Comp rehens[facility] Work Phone: Protein mass conc 7.2 g/dL Normal 6.4-8.2 [facility] Work Phone: Sodium molar conc 143 mmol/L Normal 136-145 [facility] Work Phone: Triglyceride mass conc 121 mg/dL Normal [facility] Work Phone: Comment on above: The drugs N-Acetylcy steine and Metamizole may falsely deressthis assay.Serum Triglycerides Reference Interval Normal <150 mg/dL Borderline high 150 - 199 mg/dL High 200 - 499 mg/dL Very High > or = 500 mg/dL Urea nitrogen mass conc 16 mg/dL Normal 7-18 [facility] Work Phone: URIC 5.2 mg/dL Normal 2.6-6.0 [facility] Work Phone: Comment on above: The drugs N-Acetylcy steine and Metamizole may falsely deressthis assay. Nicotine Urine Drug ScreenOr dered By: Bead Wire Insulator on 11-05-2015 COT DRG SCREEN Negative Normal [facility] Work Phone: Comment on above: Cotinine is the firs t-stage metabolite of Nicotine. TO BE CONFIRMED Normal [facility] Work Phone: Comment on above: CONFIRMATORY TESTING FOR ALL POSITIVE URINE DRUG SCREENRESULTS WILL ONLY BE SENT OUT UPON PHYSICIAN ORDER.The results of Urine Drug Screen methods provide onlypreliminary analytical test results. A more specificalternate chemical method must be used in order to obtain aconfirmed analytical result. Gas chromatography/massspectrometery (GC/MS) is the preferred confirmatory method.Clinical consideration and professional judgement should beapplied to any drug of abuse test result, particularly whenpreliminary positive results are used. Urinalysis, EmployeeOrdered By: Bead Wire Insulator on 11-05-2015 CLARITY Sl. Cloudy Normal [facility] Work Phone: COLOR Yellow Normal [facility] Work Phone: GLUCOSE, UR Normal Normal [facility] Work Phone: LEUK ESTERASE 500 /ul Abnormal [facility] Work Phone: NITRITE UR Negative Normal [facility] Work Phone: OCCULT BLOOD-UR 10 /ul Abnormal [facility] Work Phone: pH UR 6.0 1 Normal 5.0 - 8.0 [facility] Work Phone: PROT DIPSTX 15 mg/dL Abnormal [facility] Work Phone: SP.GR. 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 % Invalid Interpretation Code [facility] Work Phone: CBC W/Diff, AutomatedOrdered By: Bead Wire Insulator on 09-04-2015 Absolute Lymph 2.19 {X10_3/ul} Normal 0.83-4.51 [facility]pr ehens[facility] Work Phone: Absolute Neut 3.9 {X10_3/uL} Normal 2.0-7.7 [facility] Work Phone: Basophils/100 WBC Auto (Bld) 0.3 % Normal 0-1 [facility] Work Phone: Eosinophils/100 WBC Auto (Bld) 2.1 % Normal 0-5 [facility] Work Phone: Erythrocyte distribution width Auto Ratio (RBC) 13.0 % Normal 11.6-14.6 [facility] Work Phone: Hematocrit Auto Volume Fraction (Bld) 38.0 % Normal 37-47 [facility] Work Phone: Hemoglobin (Bld) [Mass/Vol] 12.5 g/dL Normal 12.0-15.0 [facility] Work Phone: IM GRAN % 0.300 % Normal 0.0-0.9 [facility] Work Phone: Comment on above: IG% - Immature Granu locytes (promyelocytes, myelocytes andmetamyelocytes) > 1% indicates that a LEFT SHIFT is Present. Lymphocytes/100 WBC Auto (Bld) 30.8 % Normal 19-41 [facility] Work Phone: MCH Auto Entitic mass (RBC) 29.0 pg Normal 27.0-32.0 [facility] Work Phone: MCHC Auto mass conc (RBC) 32.9 {g/gl} Normal 32-36 [facility] Work Phone: MCV Auto Entitic volume (RBC) 88.2 fL Normal 81-99 [facility] Work Phone: Monocytes/100 WBC Auto (Bld) 11.7 % Abnormal 0-10 [facility] Work Phone: Neutrophils/100 WBC Auto (Bld) 54.8 % Normal 47-70 [facility] Work Phone: Platelet mean volume Auto Entitic volume (Bld) 11.1 fL Normal 6.2-12.0 [facility] Work Phone: Platelets Auto #/vol (Bld) 210 10*3/uL Normal 150-450 [facility] Work Phone: RBC Auto #/vol (Bld) 4.31 {M/mm3} Normal 4.2-5.4 [facility] Work Phone: RDW SD 40.9 fL Normal 35.1-43.9 [facility] Work Phone: WBC Auto #/vol (Bld) 7.1 10*3/uL Normal 4.4-11.0 Com prehensive [facility] Work Phone: CRPOrdered By: System Manage r on 09-04-2015 CRP mass conc 5.55 mg/L Abnormal 0.0-3.0 Comprehensi ve [facility] Work Phone: Comment on above: C-Reactive Protein ( CRP) provides useful information for thediagnosis, therapy and monitoring of inflammatory processesand associated diseases. For the evaluation of Relative Riskfor Cardiovascular Disease, a High Sensitivity CRP (HSCRP)should be ordered. 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 Hematocrit (Bld) [Volume fraction] 38.0 % Invalid Interpretation Code [facility] Work Phone: Platelets (Bld) [#/Vol] 210 10*3/uL Invalid Interpretation Code [facility] Work Phone: TSH Qn 6.56 m[IU]/L Invalid Interpretation Code [facility] Work Phone: WBC (Bld) [#/Vol] 7.1 10*3/uL Invalid Interpretation Code [facility] Work Phone: Erythrocyte Sed RateOrdered By: Bead Wire Insulator on 09-04-2015 SED RATE 17 mm/h Normal 0-30 [facility] Work Phone: IronOrdered By: System Manag er on 09-04-2015 Iron mass conc 79 ug/dL Normal 50-170 [facility] Work Phone: Thyroid Stim Hormone (TSH)Or dered By: Bead Wire Insulator on 09-04-2015 Thyrotropin Qn 6.56 {uIU/mL} Abnormal 0.358-3.74 [facility] ens[facility] Work Phone: Vitamin [id number] By: Suresh m Pneumatic Tester on 09-04-2015 Cobalamin (Vitamin B12) mass conc 774 pg/mL Normal 211-911 [facility] Work Phone: Vitamin D,25 HydroxyOrdered By: Bead Wire Insulator on 09-04-2015 Vitamin D 25-OH 42.4 ng/mL Normal Comprehen sive [facility] Work Phone: Comment on above: Vitamin D 25(OH) Sta tus Range Deficiency <20 ng/mL (50nmol/L) Insuffciency 20 - 30 ng/mL (50 - 75 nmol/L) Sufficiency 30 - 100 ng/mL (75 - 250 nmol/L) Toxicity >100 ng/mL (>250 nmol/L) Rapid Flu (26057 x 2)Ordered By: Violetta Virgen on 02-23-2015 FLUAV Ag IA Ql (Throat) Negative Normal [facility] Work Phone: FLUAV Ag IA Ql (Throat) Negative Normal [facility]; [facility] Work Phone: Rapid Strep Test, Office ([phone])Ordered By: Violetta Virgen on 02-23-2015 S. pyogenes Ag EIA Ql (Throat) Negative Normal [facility]; [facility] Work Phone: S. pyogenes Ag IA Ql (Unsp spec) Negative Normal [facility] Work Phone: CBC W/Diff, AutomatedOrdered By: Bead Wire Insulator on 01-13-2015 Absolute Lymph 2.31 {X10_3/ul} Normal 0.83-4.51 Compr ehensive [facility] Work Phone: Absolute Neut 5.4 {X10_3/uL} Normal 2.0-7.7 [facility] Work Phone: Basophils/100 WBC Auto (Bld) 0.3 % Normal 0-1 [facility] Work Phone: Eosinophils/100 WBC Auto (Bld) 1.6 % Normal 0-5 [facility] Work Phone: Erythrocyte distribution width Auto Ratio (RBC) 13.1 % Normal 11.6-14.6 [facility] Work Phone: Hematocrit Auto Volume Fraction (Bld) 39.8 % Normal 37-47 [facility] Work Phone: Hemoglobin mass conc (Bld) 12.9 g/dL Normal 12.0-15.0 [facility] Work Phone: IM GRAN % 0.200 % Normal 0.0-0.9 [facility] Work Phone: Comment on above: IG% - Immature Granu locytes (promyelocytes, myelocytes andmetamyelocytes) > 1% indicates that a LEFT SHIFT is Present. Lymphocytes/100 WBC Auto (Bld) 26.6 % Normal 19-41 [facility] Work Phone: MCH Auto Entitic mass (RBC) 29.5 pg Normal 27.0-32.0 [facility] Work Phone: MCHC Auto mass conc (RBC) 32.4 {g/gl} Normal 32-36 [facility] Work Phone: MCV Auto Entitic volume (RBC) 91.1 fL Normal 81-99 [facility] Work Phone: Monocytes/100 WBC Auto (Bld) 9.4 % Normal 0-10 [facility] Work Phone: Neutrophils/100 WBC Auto (Bld) 61.9 % Normal 47-70 [facility] Work Phone: Platelet mean volume Auto Entitic volume (Bld) 11.2 fL Normal 6.2-12.0 [facility] Work Phone: Platelets Auto #/vol (Bld) 246 10*3/uL Normal 150-450 [facility] Work Phone: RBC Auto #/vol (Bld) 4.37 {M/mm3} Normal 4.2-5.4 [facility] Internal [facility] Work Phone: RDW SD 43.5 fL Normal 35.1-43.9 [facility] Work Phone: WBC Auto #/vol (Bld) 8.7 10*3/uL Normal 4.4-11.0 [facility] prehensive Internal Medicine Work Phone: CK-MB Quantitative and Index Ordered By: Bead Wire Insulator on 01-13-2015 CKRI 0.8 % Normal 0.0-1.4 [facility] Work Phone: Comment on above: RELATIVE INDEX >1.5% IS PRESUMPTIVELY POSITIVE CPK TOTAL 73 U/L Normal 26-192 [facility] Work Phone: CPKMB 0.6 ng/mL Normal 0.0-5.0 [facility] Work Phone: Comment on above: CK-MB and RI Interpr etation MB Relative Index Non-AMI 5 5 > 4 IronOrdered By: System Manag er on 01-13-2015 Iron mass conc 53 ug/dL Normal 50-170 [facility] Work Phone: Thyroid Stim Hormone (TSH)Or dered By: Bead Wire Insulator on 01-13-2015 Thyrotropin Qn 10.90 {uIU/mL} Abnormal 0.358-3.74 [facility] Work Phone: Troponin-IOrdered By: Bead Wire Insulator on 01-13-2015 Troponin I.cardiac mass conc ng/mL Normal [facility] Work Phone: Comment on above: TROPONIN-I EXPECTED VALUES <0.05 NEGATIVE 0.06 - 0.59 AT RISK OF PR > OR = 0.60 SUGGEST PR Vitamin D,25 HydroxyOrdered By: Bead Wire Insulator on 01-13-2015 Vitamin D 25-OH 24.7 ng/mL Normal [facility] Work Phone: Comment on above: Vitamin D 25(OH) Sta tus Range Deficiency <20 ng/mL (50nmol/L) Insuffciency 20 - 30 ng/mL (50 - 75 nmol/L) Sufficiency 30 - 100 ng/mL (75 - 250 nmol/L) Toxicity >100 ng/mL (>250 nmol/L) CBC, EmployeeOrdered By: Sys tem Pneumatic Tester on 11-12-2014 Absolute Lymph 2.11 {X10_3/ul} Normal 0.83-4.51 Compr ehensive [facility] Work Phone: Absolute Neut 5.6 {X10_3/uL} Normal 2.0-7.7 Compreh ensive [facility] Work Phone: Basophils/100 WBC Auto (Bld) 0.3 % Normal 0-1 [facility] Work Phone: Eosinophils/100 WBC Auto (Bld) 0.6 % Normal 0-5 [facility] Work Phone: Erythrocyte distribution width Auto Ratio (RBC) 13.2 % Normal 11.6-14.6 [facility] Work Phone: Hematocrit Auto Volume Fraction (Bld) 40.9 % Normal 37-47 [facility] Work Phone: Hemoglobin mass conc (Bld) 13.1 g/dL Normal 12.0-15.0 [facility] Work Phone: Lymphocytes/100 WBC Auto (Bld) 24.6 % Normal 19-41 [facility] Work Phone: MCH Auto Entitic mass (RBC) 28.7 pg Normal 27.0-32.0 [facility] Work Phone: MCHC Auto mass conc (RBC) 32.0 {g/gl} Normal 32-36 [facility] Work Phone: MCV Auto Entitic volume (RBC) 89.7 fL Normal 81-99 [facility] Work Phone: Monocytes/100 WBC Auto (Bld) 8.7 % Normal 0-10 [facility] Work Phone: Neutrophils/100 WBC Auto (Bld) 65.3 % Normal 47-70 [facility] Work Phone: Platelet mean volume Auto Entitic volume (Bld) 11.0 fL Normal 6.2-12.0 [facility] Work Phone: Platelets Auto #/vol (Bld) 279 10*3/uL Normal 150-450 [facility] Work Phone: RBC Auto #/vol (Bld) 4.56 {M/mm3} Normal 4.2-5.4 [facility] [facility] Work Phone: RDW SD 42.8 fL Normal 35.1-43.9 [facility] Work Phone: WBC Auto #/vol (Bld) 8.6 10*3/uL Normal 4.4-11.0 [facility] Work Phone: Employee ProfileOrdered By: Bead Wire Insulator on 11-12-2014 A/G 1.2 {RATIO} Normal 0.9-2.4 [facility] Work Phone: Albumin [Mass/Vol] 4.1 g/dL Normal 3.4-5.0 [facility] Work Phone: ALP enzyme act/vol 104 U/L Normal 50-136 [facility]pre [facility] Work Phone: AST [Catalytic activity/Vol] 15 U/L Normal 15-37 [facility] Work Phone: BUN/CRE 25.6 {RATIO} Abnormal 10-20 [facility] Work Phone: Calcium mass conc 8.9 mg/dL Normal 8.5-10.1 [facility] Work Phone: Chloride molar conc 100 mmol/L Normal 98-107 Compr [facility] Work Phone: Cholesterol in HDL [Mass/Vol] 72 mg/dL Normal [facility] Work Phone: Comment on above: Reference Range HDL <40 mg/dL Low HDL Cholesterol HDL >or= 60 mg/dL High HDL Cholesterol CO2 molar conc 27.0 mmol/L Normal 21.0-32.0 [facility]hen [facility] Work Phone: Creatinine mass conc 0.82 mg/dL Normal 0.55-1.20 [facility] re[facility] Work Phone: Comment on above: The validity of the calculated GFR AND GFRAA in patients over70 years has not been determined. Clinical correlation isessential. EST GFR - AA 91 mL/min Normal [facility] Work Phone: GAP 6 1 Normal 5-15 [facility] Work Phone: GFR/1.73 sq M predicted among non-blacks MDRD vol rate/area (S/P/Bld) 75 mL/min/{1.73_m2} Normal Comprehe ns[facility] Work Phone: Glucose mass conc 93 mg/dL Normal 70-110 [facility] Work Phone: HDLEMP 72 mg/dL Normal [facility] Work Phone: Comment on above: Reference Range HDL <40 mg/dL Low HDL Cholesterol HDL >or= 60 mg/dL High HDL Cholesterol LDH 194 U/L Normal 84-246 [facility] Work Phone: Phosphate mass conc 3.0 mg/dL Normal 2.5-4.9 [facility]pr [facility] Work Phone: Potassium molar conc 4.4 mmol/L Normal 3.5-5.1 [facility] Work Phone: Sodium molar conc 133 mmol/L Abnormal 136-145 [facility] Work Phone: Triglyceride [Mass/Vol] 58 mg/dL Normal [facility] Work Phone: Comment on above: Serum Triglycerides Reference Interval Normal <150 mg/dL Borderline high 150 - 199 mg/dL High 200 - 499 mg/dL Very High > or = 500 mg/dL Urea nitrogen mass conc 21 mg/dL Abnormal 7-18 [facility] Work Phone: URIC 4.5 mg/dL Normal 2.6-6.0 [facility] Work Phone: Lab Report: Lipid Profileon 11-12-2014 Cholesterol in LDL [Mass/Vol] 140 mg/dL High 0-130 [facility] Work Phone: Lipoprotein.pre-beta [Mass/Vol] 12 mg/dL Invalid Interpretation Code 5-40 [facility] Work Phone: Lab Report: Liver Profileon 11-12-2014 ALP (Bld) [Catalytic activity/Vol] 104 U/L Invalid Interpretation Code 50-136 [facility] Work Phone: Globulin (S) [Mass/Vol] 3.5 g/dL Invalid Interpretation Code 2.3-3.5 [facility] Work Phone: Lipid ProfileOrdered By: MEETiiN Pneumatic Tester on 11-12-2014 Cholesterol [Mass/Vol] 224 mg/dL Abnormal [facility] Work Phone: Comment on above: <200 mg/dL Desirable 200-240 mg/dL Borderline >240 mg/dL High Risk Cholesterol in LDL mass conc 140 mg/dL Abnormal 0-130 [facility] Work Phone: Cholesterol in VLDL mass conc 12 mg/dL Normal 5-40 [facility] Work Phone: Liver ProfileOrdered By: MEETiiN Pneumatic Tester on 11-12-2014 ALT [Catalytic activity/Vol] 22 U/L Normal 12-78 [facility] Work Phone: Bilirubin [Mass/Vol] 0.40 mg/dL Normal 0.20-1.[address] [facility] Work Phone: Bilirubin.direct [Mass/Vol] 0.12 mg/dL Normal 0.00-0.30 [facility] Work Phone: Globulin Calculated mass conc (S) 3.5 g/dL Normal 2.3-3.5 [facility] Work Phone: Protein [Mass/Vol] 7.6 g/dL Normal 6.4-8.2 [facility] Work Phone: Urinalysis, EmployeeOrdered By: Bead Wire Insulator on 11-12-2014 CLARITY Sl. Cloudy Normal [facility] Work Phone: COLOR Yellow Normal [facility] Work Phone: GLUCOSE, UR Normal Normal [facility] Work Phone: LEUK ESTERASE Negative Normal Comprehensi [facility] Work Phone: pH UR 6.0 1 Normal 5.0 - 8.0 [facility] Work Phone: SP.GR. DIPSTX 1.020 1 Normal 1.002-1.03 0 [facility] Work Phone: Office Visiton 11-05-2014 cardiac risk group B Invalid Interpretation Code [facility] Work Phone: General cardiovascular disease 10Y risk [#] [place]ost[place] 11 % Invalid Interpretation Code [facility] Work Phone: Tobacco use status [facility] Never smoker Invalid Interpretation Code [facility] Work Phone: Basic Metabolic Profile (BMP )Ordered By: Bead Wire Insulator on 10-18-2014 Basic metabolic 2000 panel 27.0 mmol/L Normal 21.0-32.0 [facility] Work Phone: Basic metabolic 2000 panel 103 mmol/L Normal 98-107 [facility] Work Phone: Basic metabolic 2000 panel 4.5 mmol/L Normal 3.5-5.1 [facility] Work Phone: Basic metabolic 2000 panel 80 mL/min Normal [facility] Work Phone: Basic metabolic 2000 panel 66 mL/min Normal [facility] Work Phone: Basic metabolic 2000 panel 7 1 Normal 5-15 [facility] Work Phone: Basic metabolic 2000 panel 12 mg/dL Normal 7-18 [facility] Work Phone: Basic metabolic 2000 panel 13.2 {RATIO} Normal 10-20 [facility] Work Phone: Basic metabolic 2000 panel 108 mg/dL Normal 70-110 [facility] Work Phone: Basic metabolic 2000 panel 0.91 mg/dL Normal 0.55-1.20 [facility] Work Phone: Comment on above: Please note revised CREATININE reference range xibnolbrr62/22/2015. Basic metabolic 2000 panel 9.3 mg/dL Normal 8.5-10.1 [facility] Work Phone: Basic metabolic 2000 panel 53.93 ml/min Normal [facility] Work Phone: Basic metabolic 2000 panel 137 mmol/L Normal 136-145 [facility] Work Phone: Thyroid Stim Hormone (TSH)Or dered By: Bead Wire Insulator on 10-18-2014 Thyrotropin Qn 7.67 {uIU/mL} Abnormal 0.358-3.74 [facility] Work Phone: LIONEL CULTURE-OTHER ([id number])Ord ered By: Bead Wire Insulator on 10-14-2014 Bacteria identified Respiratory culture Nom (Unsp spec) Final report Abnormal [facility] Work Phone: Comment on above: PATIENT NOT FASTINGP ERFORMED BY: FOBO [id number] [facility] [id number] Information: SRC:MONTY [id number] Bacteria identified Respiratory culture Nom (Unsp spec) BETAGB Abnormal [facility] Work Phone: Comment on above: Beta hemolytic Strep tococcus, group BModerate growthPenicillin and ampicillin are drugs of choice for treatment ofbeta-hemolytic streptococcal infections. Susceptibility testing ofpenicillins and other beta-lactam agents approved by the FDA fortreatment of beta-hemolytic streptococcal infections need not beperformed routinely because nonsusceptible isolates are extremelyrare in any beta-hemolytic streptococcus and have not been reportedfor Streptococcus pyogenes (group A). (CLSI 2010) PATIENT NOT FASTINGP ERFORMED BY: FOBO [id number] [facility] [id number] Information: SRC:MONTY [id number] Rapid Strep Test, Office ([phone])Ordered By: Violetta Virgen on 10-14-2014 S. pyogenes Ag EIA Ql (Throat) Negative Normal [facility]; [facility] Work Phone: S. pyogenes Ag IA Ql (Unsp spec) Negative Normal [facility] Work Phone: CBC With Differential/Platel etOrdered By: Bead Wire Insulator on 08-19-2014 Basophils Auto #/vol (Bld) 0.0 {x10E3/uL} Normal 0.0-0.2 [facility] Work Phone: Basophils/100 WBC Auto (Bld) 0 % Normal [facility] Work Phone: Eosinophils Auto #/vol (Bld) 0.0 {x10E3/uL} Normal 0.0-0.4 [facility] Work Phone: Eosinophils/100 WBC Auto (Bld) 0 % Normal [facility] Work Phone: Erythrocyte distribution width Auto Ratio (RBC) 14.0 % Normal 12.3-15.4 [facility] Work Phone: Hematocrit Auto Volume Fraction (Bld) 41.3 % Normal 34.0-46.6 [facility] Work Phone: Hemoglobin mass conc (Bld) 13.3 g/dL Normal 11.1-15.9 [facility] Work Phone: Immature granulocytes #/vol (Bld) 0.0 {x10E3/uL} Normal 0.0-0.1 [facility] Work Phone: Immature granulocytes/100 WBC (Bld) 0 % Normal [facility] Work Phone: Lymphocytes Auto #/vol (Bld) 2.7 {x10E3/uL} Normal 0.7-3.1 [facility] Work Phone: Lymphocytes/100 WBC Auto (Bld) 30 % Normal [facility] Work Phone: MCH Auto Entitic mass (RBC) 28.7 pg Normal 26.6-33.0 [facility] Work Phone: MCHC Auto mass conc (RBC) 32.2 g/dL Normal 31.5-35.7 [facility] Work Phone: MCV Auto Entitic volume (RBC) 89 fL Normal 79-97 [facility] Work Phone: Monocytes Auto #/vol (Bld) 0.6 {x10E3/uL} Normal 0.1-0.9 [facility] Work Phone: Monocytes/100 WBC Auto (Bld) 7 % Normal [facility] Work Phone: Neutrophils Auto #/vol (Bld) 5.5 {x10E3/uL} Normal 1.4-7.0 [facility] Work Phone: Neutrophils/100 WBC Auto (Bld) 63 % Normal [facility] Work Phone: Platelets Auto #/vol (Bld) 257 {x10E3/uL} Normal 150-379 [facility] Work Phone: RBC Auto #/vol (Bld) 4.63 {x10E6/uL} Normal 3.77-5.28 [facility] Work Phone: WBC Auto #/vol (Bld) 8.9 {x10E3/uL} Normal 3.4-10.8 [facility] Work Phone: Comp. Metabolic Panel (14)Or dered By: Bead Wire Insulator on 08-19-2014 Albumin mass conc 4.6 g/dL Normal 3.6-4.8 Compreh [facility] Work Phone: Albumin/Globulin mass ratio 2.0 {ratio} Normal 1.1-2.5 [facility] Work Phone: ALP enzyme act/vol 110 [iU]/L Normal 39-117 [facility] Work [facility]: ALT enzyme act/vol 15 [iU]/L Normal 0-32 [facility] Work Phone: AST enzyme act/vol 11 [iU]/L Normal 0-40 [facility] Work Phone: Bilirubin mass conc 0.3 mg/dL Normal 0.0-1.2 Compr [facility] Work Phone: Calcium mass conc 9.8 mg/dL Normal 8.7-10.3 [facility] Work Phone: Chloride molar conc 96 mmol/L Abnormal 97-108 Compr [facility] Work Phone: CO2 molar conc 22 mmol/L Normal 18-29 [facility] Work Phone: Creatinine mass conc 0.90 mg/dL Normal 0.57-1.00 Comp [facility] Work Phone: GFR/1.73 sq M predicted among blacks CKD-EPI vol rate/area (S/P/Bld) 78 mL/min/1.73 Normal [facility] Work Phone: GFR/1.73 sq M predicted among non-blacks CKD-EPI vol rate/area (S/P/Bld) 68 mL/min/1.73 Normal [facility] Work Phone: Globulin Calculated mass conc (S) 2.3 g/dL Normal 1.5-4.5 [facility] Work Phone: Glucose mass conc 84 mg/dL Normal 65-99 [facility] Work Phone: Potassium molar conc 4.6 mmol/L Normal 3.5-5.2 [facility] Work Phone: Protein mass conc 6.9 g/dL Normal 6.0-8.5 [facility] Work Phone: Sodium molar conc 136 mmol/L Normal 134-144 [facility] Work Phone: Urea nitrogen mass conc 22 mg/dL Normal 8-27 [facility] Work Phone: Urea nitrogen/Creatinine mass ratio 24 mg/mg Normal 11-26 [facility] Work Phone: EBV Acute Infection Antibodi esOrdered By: Bead Wire Insulator on 08-19-2014 EBV capsid IgG IA Qn (S) <18.0 Normal 0.0-17.9 [facility] Work Phone: Comment on above: Negative <18.0 Equiv ocal 18.0 - 21.9 Positive >21.9 EBV capsid IgM IA Qn (S) <36.0 Normal 0.0-35.9 [facility] Work Phone: Comment on above: Negative <36.0 Equiv ocal 36.0 - 43.9 Positive >43.9 EBV early IgG Qn (S) <9.0 Normal 0.0-8.9 [facility] Work Phone: Comment on above: Negative < 9.0 Equiv ocal 9.0 - 10.9 Positive >10.9 EBV nuclear IgG IA Qn (S) 64.6 U/mL Abnormal 0.0-17.9 [facility] Work Phone: Comment on above: Negative <18.0 Equiv ocal 18.0 - 21.9 Positive >21.9 Service comment Interp (Unsp spec) SPRCS Normal [facility] Work Phone: Comment on above: EBV Interpretation C morse . Interpretation EBV-IgM EA(D)-IgG VCA-IgG EBNA-IgG . EBV Seronegative - - - - Early Phase + - - - Acute Primary + +or- + - Infection Convalescence/Past - +or- + + Infection Reactivated +or- + + + Infection + Antibody Present - Antibody Absent Rapid Strep Test, Office ([phone])Ordered By: Radha Dumont on 08-19-2014 S. pyogenes Ag EIA Ql (Throat) Negative Normal [facility]; [facility] Work Phone: S. pyogenes Ag IA Ql (Unsp spec) Negative Normal [facility] Work Phone: Upper Respiratory CultureOrd ered By: Bead Wire Insulator on 08-19-2014 Bacteria identified Respiratory culture Nom (Unsp spec) Final report Abnormal [facility] Work Phone: Bacteria identified Respiratory culture Nom (Unsp spec) BETAGB Abnormal [facility] Work Phone: Comment on above: Beta hemolytic Strep tococcus, group BModerate growthPenicillin and ampicillin are drugs of choice for treatment ofbeta-hemolytic streptococcal infections. Susceptibility testing ofpenicillins and other beta-lactam agents approved by the FDA fortreatment of beta-hemolytic streptococcal infections need not beperformed routinely because nonsusceptible isolates are extremelyrare in any beta-hemolytic streptococcus and have not been reportedfor Streptococcus pyogenes (group A). (CLSI 2011) CBCEMOrdered By: Cammie jeffries on 11-04-2013 Erythrocyte distribution width Auto Ratio (RBC) 13.4 % Normal 11.6-14.6 [facility] Work Phone: Hematocrit Auto Volume Fraction (Bld) 37.8 % Normal 37-47 [facility] Work Phone: Hemoglobin mass conc (Bld) 13.0 g/dL Normal 12.0-15.0 [facility] Work Phone: MCH Auto Entitic mass (RBC) 30.4 pg Normal 27.0-32.0 [facility] Work Phone: MCHC Auto mass conc (RBC) 34.4 {g/gl} Normal 32-36 [facility] Work Phone: MCV Auto Entitic volume (RBC) 88.3 fL Normal 81-99 [facility] Work Phone: Platelet mean volume Auto Entitic volume (Bld) 10.5 fL Normal 6.2-12.0 [facility] Work Phone: Platelets Auto #/vol (Bld) 271 10*3/uL Normal 150-450 [facility] Work Phone: RBC Auto #/vol (Bld) 4.28 {M/mm3} Normal 4.2-5.4 [facility] Work Phone: WBC Auto #/vol (Bld) 10.1 10*3/uL Normal 4.4-11.0 [facility] Work Phone: CBCEM 42.2 fL Normal 35.1-43.9 [facility] Work Phone: CBCEM 56.2 % Normal 47-70 [facility] Work Phone: CBCEM 31.1 % Normal 19-41 [facility] Work Phone: CBCEM 9.3 % Normal 0-10 [facility] Work Phone: CBCEM 2.1 % Normal 0-5 [facility] Work Phone: CBCEM 5.7 {X10_3/uL} Normal 2.0-7.7 [facility]prehens [facility] Work Phone: CBCEM 3.13 {X10_3/ul} Normal 0.83-4.51 Comprehen s[facility] Work Phone: CBCEM 0.5 % Normal 0-1 [facility] Work Phone: 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 CO2 (BldV) [Partial pressure] 28.0 mmol/L Invalid Interpretation Code [facility] Work Phone: MCH (RBC) [Entitic mass] 30.4 pg Invalid Interpretation Code [facility] Work Phone: MCV (RBC) [Entitic vol] 88.3 fL Invalid Interpretation Code [facility] Work Phone: RBC (Bld) [#/Vol] 4.28 10*6/uL Invalid Interpretation Code [facility] Work Phone: Urea nitrogen/Creatinine [Mass ratio] 25.5 mg/mg Invalid Interpretation Code [facility] Work Phone: EMPOrdered By: System Manage r on 11-04-2013 Albumin mass conc 4.0 g/dL Normal 3.4-5.0 [facility] Work Phone: Albumin/Globulin mass ratio 1.3 {RATIO} Normal 0.9-2.4 [facility] Work Phone: ALT enzyme act/vol 28 U/L Normal 12-78 Compre hens[facility] Work Phone: AST enzyme act/vol 12 U/L Abnormal 15-37 Compre [facility] Work Phone: Calcium mass conc 9.0 mg/dL Normal 8.5-10.1 Compre[facility] Work Phone: Chloride [Moles/Vol] 102 mmol/L Normal 98-[address] [facility] Work Phone: Cholesterol in HDL mass conc 67 mg/dL Normal [facility] Work Phone: Comment on above: Reference RangeHDL < 40 mg/dL Low HDL CholesterolHDL >or= 60 mg/dL High HDL Cholesterol Cholesterol in LDL mass conc 135 mg/dL Abnormal 0-130 [facility] Work Phone: Cholesterol mass conc 221 mg/dL Abnormal Com [facility]hens[facility] Work Phone: Comment on above: <200 mg/dL Desirable 200-240 mg/dL Borderline>240 mg/dL High Risk CO2 molar conc 28.0 mmol/L Normal 21.0-32.0 Comprehen s[facility] Work Phone: Creatinine [Mass/Vol] 1.1 mg/dL Abnormal 0.6-1.0 [facility] Work Phone: GFR/1.73 sq M predicted among non-blacks MDRD vol rate/area (S/P/Bld) 53 mL/min/{1.73_m2} Abnormal Comprehe nsive [facility] Work Phone: Globulin Calculated mass conc (S) 3.1 g/dL Normal 2.7-4.2 [facility] Work Phone: Glucose mass conc 90 mg/dL Normal 70-110 Com[facility] ens[facility] Work Phone: Potassium [Moles/Vol] 4.5 mmol/L Normal 3.5-5.1 [facility] Work Phone: Protein mass conc 7.1 g/dL Normal 6.4-8.2 Compre[facility] Work Phone: Sodium [Moles/Vol] 136 mmol/L Normal 136-145 [facility] Work Phone: Triglyceride mass conc 96 mg/dL Normal 0-199 [facility] Work Phone: Comment on above: Serum Triglycerides Reference IntervalNormal <150 mg/dLBorderline high 150 - 199 mg/dLHigh 200 - 499 mg/dLVery High > or = 500 mg/dL Urea nitrogen [Mass/Vol] 28 mg/dL Abnormal 7-18 [facility] Work Phone: EMP 0.40 mg/dL Normal 0.00-1.00 [facility] Work Phone: EMP 122 U/L Abnormal 45-117 [facility] Work Phone: EMP 19 mg/dL Normal 5-40 [facility] Work Phone: EMP 3.9 mg/dL Normal 2.5-4.9 [facility] Work Phone: EMP 202 U/L Normal 87-241 [facility] Work Phone: EMP 6 1 Normal 5-15 [facility] Work Phone: EMP 0.07 mg/dL Normal 0.00-0.30 [facility] Work Phone: EMP 4.5 mg/dL Normal 2.6-6.0 [facility] Work Phone: EMP 25.5 {RATIO} Abnormal 10-20 [facility] Work Phone: EMP 64 mL/min Normal [facility] Work Phone: UAEMOrdered By: System Manag er on 11-04-2013 UAEM Negative Normal [facility] Work Phone: UAEM Normal Normal [facility] Work Phone: UAEM Sl. Cloudy Normal [facility] Work Phone: UAEM 25 /ul Abnormal [facility] Work Phone: UAEM 5.0 1 Normal 5.0 - 8.0 [facility] Work Phone: UAEM 1.015 1 Normal 1.002-1.03 0 [facility] Work Phone: UAEM Yellow Normal [facility] Work Phone: Blood Glucose , Office ([phone])Ordered By: RACHEL Bartlett on 08-26-2013 Glucose Glucometer molar conc (BldC) 126 1 Normal [facility] Work Phone: CALCIFIDIOL ([id number]) VIT D 25 Ordered By: Bead Wire Insulator on 08-26-2013 25-Hydroxyvitamin D2+25-Hydroxyvitamin D3 mass conc 16.3 ng/mL Abnormal 30.0-100.0 [facility] Work Phone: Comment on above: Vitamin D deficiency has been defined by the [employer] ofMed[employer] and an Endocrine Society practice guideline as alevel of serum 25-OH vitamin D less than 20 ng/mL (1,2).The Endocrine Society went on to further define vitamin Dinsufficiency as a level between 21 and 29 ng/mL (2).1. IOM ([employer] of Medicine). 2010. Dietary reference intakes for calcium and D. [place]: The National Academies Press.2. Jonna MF, Yomi NC, Dionte DUNHAM, et al. Evaluation, treatment, and prevention of vitamin D deficiency: an Endocrine Society clinical practice guideline. JCEM. 2010; 96(7):1911-30. PATIENT WAS FASTINGP ERFORMED BY: PEGGY [facility] [id number] RoadDublin [place] [id number] HgA1C , Office ([id number])Ordere d By: Isis Phoenix on 08-26-2013 Hemoglobin A1c/Hemoglobin.total mass fraction (Bld) 5.5 % Normal 4.6 - 7.1 [facility] Work Phone: LIPID PANEL ([id number])Ordered B y: Bead Wire Insulator on 08-26-2013 Cholesterol in HDL mass conc 72 mg/dL Normal [facility] Work Phone: Comment on above: According to ATP-III Guidelines, HDL-C >59 mg/dL is considered anegative risk factor for CHD. PATIENT WAS FASTINGP ERFORMED BY: PEGGY [facility] [id number] RoadDublin [place] [id number] Cholesterol in LDL mass conc 174 mg/dL Abnormal 0-99 [facility] Work Phone: Comment on above: PATIENT WAS FASTINGP ERFORMED BY: PEGGY [facility] [id number] TicketBiscuitDublin [place] [id number] Cholesterol in LDL/Cholesterol in HDL mass ratio 2.4 {ratio_units} Normal 0.0-3.2 [facility] Work Phone: Comment on above: PATIENT WAS FASTINGP ERFORMED BY: CB [facility] [id number]Dublin [place] [id number] Cholesterol in VLDL mass conc 23 mg/dL Normal 5-40 [facility] Work Phone: Comment on above: PATIENT WAS FASTINGP ERFORMED BY: PEGGY [facility] [id number] [address] RoadDublin [place] [id number] Cholesterol mass conc 269 mg/dL Abnormal 100-199 [facility] prehensive Internal Medicine Work Phone: Comment on above: PATIENT WAS FASTINGP ERFORMED BY: CB [facility] [id number] RoadDublin [place] [id number] Triglyceride mass conc 114 mg/dL Normal 0-149 [facility] Work Phone: Comment on above: PATIENT WAS FASTINGP ERFORMED BY: PEGGY [id number] [facility] [id number] METABOLIC PANEL, COMPREHENSI VE ([id number])Ordered By: Bead Wire Insulator on 08-26-2013 Albumin mass conc 4.5 g/dL Normal 3.6-4.8 Compreh [facility] Work Phone: Comment on above: PATIENT WAS FASTINGP ERFORMED BY: PEGGY Alon [id number] [facility] [id number] Information: [id number] Albumin/Globulin mass ratio 2.0 {ratio} Normal 1.1-2.5 [facility] Work Phone: Comment on above: PATIENT WAS FASTINGP ERFORMED BY: PEGGY Alon [id number] [facility] [id number] Information: [id number] ALP [Catalytic activity/Vol] 107 U/L Normal 39-117 [facility]; [facility] Work Phone: ALP enzyme act/vol 107 [iU]/L Normal 39-117 [facility] Work Phone: Comment on above: PATIENT WAS FASTINGP ERFORMED BY: PEGGY Alon [id number] [facility] [id number] Information: [id number] ALT [Catalytic activity/Vol] 36 U/L Abnormal 0-32 [facility]; [facility] Work Phone: ALT enzyme act/vol 36 [iU]/L Abnormal 0-32 [facility] Work Phone: Comment on above: PATIENT WAS FASTINGP ERFORMED BY: PEGGY Chi [id number] [facility] [id number] Information: [id number] AST [Catalytic activity/Vol] 38 U/L Normal 0-40 [facility]; [facility] Work Phone: AST enzyme act/vol 38 [iU]/L Normal 0-40 Compre [facility] Internal Medicine Work Phone: Comment on above: PATIENT WAS FASTINGP ERFORMED BY: [facility] Qhgehz9126 [facility] [place] [id number] Information: [id number] Bilirubin mass conc 0.3 mg/dL Normal 0.0-1.2 Compr ensive Internal Medicine Work Phone: Comment on above: PATIENT WAS FASTINGP ERFORMED BY: [facility] Rrrhuq2673 [facility] [id number] Information: [id number] Calcium mass conc 10.2 mg/dL Normal 8.6-10.2 Compreh [facility] Internal Medicine Work Phone: Comment on above: PATIENT WAS FASTINGP ERFORMED BY: [facility] Fvpqxy9537 [facility] [id number] Information: [id number] Chloride molar conc 99 mmol/L Normal 97-108 Compr [facility] Internal Medicine Work Phone: Comment on above: PATIENT WAS FASTINGP ERFORMED BY: [facility] Hbxwxq1984 [facility] [id number] Information: [id number] CO2 molar conc 24 mmol/L Normal 18-29 [facility] Work Phone: Comment on above: PATIENT WAS FASTINGP ERFORMED BY: [facility] Pjzcbl4824 [facility] [id number] Information: [id number] Creatinine mass conc 0.96 mg/dL Normal 0.57-1.00 [facility] Internal Medicine Work Phone: Comment on above: PATIENT WAS FASTINGP ERFORMED BY: [facility] Olclza7867 [facility] [id number] Information: [id number] GFR/1.73 sq M predicted among blacks CKD-EPI vol rate/area (S/P/Bld) 73 mL/min/1.73 Normal [facility] Work Phone: Comment on above: PATIENT WAS FASTINGP ERFORMED BY: [facility] Hoxfhf2852 [facility] [id number] Information: [id number] GFR/1.73 sq M predicted among non-blacks CKD-EPI vol rate/area (S/P/Bld) 63 mL/min/1.73 Normal Comprehensiv e Internal Medicine Work Phone: Comment on above: PATIENT WAS FASTINGP ERFORMED BY: PEGGY [place] [id number] [facility] [id number] Information: [id number] Globulin Calculated mass conc (S) 2.2 g/dL Normal 1.5-4.5 [facility] Work Phone: Globulin mass conc (S) 2.2 g/dL Normal 1.5-4.5 Co mprensive Internal Medicine Work Phone: Comment on above: PATIENT WAS FASTINGP ERFORMED BY: PEGGY [place] [id number] [facility] [id number] Information: [id number] Glucose mass conc 95 mg/dL Normal 65-99 Compreh ensive Internal Medicine Work Phone: Comment on above: PATIENT WAS FASTINGP ERFORMED BY: PEGGY [address] [id number] Information: [id number] Potassium molar conc 5.2 mmol/L Normal 3.5-5.2 Comp rehensive Internal Medicine Work Phone: Comment on above: PATIENT WAS FASTINGP ERFORMED BY: [place] [id number] [facility] [id number] Information: [id number] Protein mass conc 6.7 g/dL Normal 6.0-8.5 Compreh ensive Internal Medicine Work Phone: Comment on above: PATIENT WAS FASTINGP ERFORMED BY: PEGGY [place] Ybckhf2356 [facility] [id number] Information: [id number] Sodium molar conc 138 mmol/L Normal 134-144 Compreh ensive Internal Medicine Work Phone: Comment on above: PATIENT WAS FASTINGP ERFORMED BY: [facility] Nekkor7158 [facility] [id number] Information: [id number] Urea nitrogen mass conc 15 mg/dL Normal 8-27 [facility] Work Phone: Comment on above: PATIENT WAS FASTINGP ERFORMED BY: [facility] Dejhva9006 [facility] [id number] Information: [id number] Urea nitrogen/Creatinine mass ratio 16 mg/mg Normal 11- [facility] Work Phone: Comment on above: PATIENT WAS FASTINGP ERFORMED BY: [facility] Bissxk4484 [facility] [id number] Information: [id number] TSH (03907)Ordered By: Syste m Pneumatic Tester on 08-26-2013 Thyrotropin Qn 16.410 {uIU/mL} Abnormal 0.450-4.50 0 [facility] Work Phone: Comment on above: PATIENT WAS FASTINGP ERFORMED BY: [facility] Vffvdu2911 [facility] [id number] Urinalysis, Office ([id number])Or dered By: Isis Phoenix on 08-26-2013 Bilirubin Ql (U) Negative Normal Comprehe nsive Internal Medicine Work Phone: Bilirubin Ql (U) Negative Normal Comprehe nsive Internal Medicine; [facility] Work Phone: Glucose Test strip (U) [Mass/Vol] Negative Normal [facility]; [facility] Work Phone: Glucose Test strip mass conc (U) Negative Normal [facility] Work Phone: Hemoglobin Ql (U) Negative Normal Compreh ensive Internal Medicine Work Phone: Hemoglobin Ql (U) Negative Normal Compreh ensive [facility]; [facility] Work Phone: Hemoglobin Test strip Ql (U) Negative Normal [facility] Work Phone: Ketones Ql (U) Negative Normal Comprehens [place] [facility] Work Phone: Ketones Ql (U) Negative Normal Comprehens [place]; [facility] Work Phone: Leukocyte esterase Test strip Ql (U) Negative Normal [facility] Work Phone: Leukocyte esterase Test strip Ql (U) Negative Normal [facility]; [facility] Work Phone: Nitrite Ql (U) Negative Normal Comprehens [place] [facility] Work Phone: Nitrite Ql (U) Negative Normal Comprehens [facility]; [facility] Work Phone: Nitrite Test strip Ql (U) Negative Normal [facility] Work Phone: pH (U) 7 [pH] Normal [facility] Work Phone: pH Test strip (U) 7 [pH] Normal Compreh ensive Internal Medicine Work Phone: Protein Ql (U) Negative Normal Comprehens [place] [facility] Work Phone: Protein Ql (U) Negative Normal Comprehens [place]; [facility] Work Phone: Protein Test strip Ql (U) Negative Normal [facility] Work Phone: Specific gravity Relative Density (U) 1.010 1 Normal Comprehensi ve Internal Medicine Work Phone: Urobilinogen mass/time (24H U) Normal Normal [facility] Work Phone: Office Visiton 07-08-2013 Tobacco smoking status Never Invalid Interpretation Code [facility] Work Phone: CBCDOrdered By: System Manag er on 06-22-2013 Erythrocyte distribution width Auto Ratio (RBC) 15.0 % Abnormal 11.6-14.6 [facility] Work Phone: Hematocrit Auto Volume Fraction (Bld) 33.7 % Abnormal 37-47 [facility] Work Phone: Hemoglobin mass conc (Bld) 11.5 g/dL Abnormal 12.0-15.0 [facility] Work Phone: MCH Auto Entitic mass (RBC) 30.4 pg Normal 27.0-32.0 [facility] Internal Medicine Work Phone: MCHC Auto mass conc (RBC) 34.1 {g/gl} Normal 32-36 [facility] Work Phone: MCV Auto Entitic volume (RBC) 89.2 fL Normal 81-99 [facility] Work Phone: Platelet mean volume Auto Entitic volume (Bld) 9.3 fL Normal 6.2-12.0 [facility] Internal Medicine Work Phone: Platelets Auto #/vol (Bld) 209 10*3/uL Normal 150-450 [facility] Internal Medicine Work Phone: RBC Auto #/vol (Bld) 3.78 {M/mm3} Abnormal 4.2-5.4 [facility] Work Phone: WBC Auto #/vol (Bld) 6.0 10*3/uL Normal 4.4-11.0 [facility] Internal Medicine Work Phone: CBCD 0.200 % Normal 0.0-0.9 [facility] Internal Medicine Work Phone: Comment on above: IG% - Immature Granu locytes (promyelocytes, myelocytes andmetamyelocytes) > 1% indicates that a LEFT SHIFT is Present. CBCD 0.3 % Normal 0-1 [facility] Work Phone: CBCD 5.9 % Abnormal 0-5 [facility] Work Phone: CBCD 14.4 % Abnormal 0-10 [facility] Work Phone: CBCD 28.7 % Normal 19-41 [facility] Work Phone: CBCD 50.5 % Normal 47-70 [facility] Internal Medicine Work Phone: CBCD 3.0 {X10_3/uL} Normal 2.0-7.7 [facility] Internal Medicine Work Phone: CBCD 47.7 fL Abnormal 35.1-43.9 [facility] Work Phone: Lab Report: CBCDon 4 Absolute Neutrophil count 3.0 X10 3/UL Normal 2.0-7.7 [facility] Work Phone: Basophils/100 WBC (Bld) 0.3 % Normal 0-1 [facility] Work Phone: Eosinophils/100 WBC (Bld) 5.9 % High 0-5 [facility] Work Phone: Erythrocyte distribution width (RBC) [Ratio] 0.30732 % Normal 0.0-0.9 [facility] Work Phone: Lymphocytes/100 WBC (Bld) 28.7 % Normal 19-41 [facility] Work Phone: mean corpuscular hemoglobin concentration, RBC 34.1 G/GL Normal 32-36 [facility] Work Phone: Monocytes/100 WBC (Bld) 14.4 % High 0-10 [facility] Work Phone: Neutrophils/100 WBC (Bld) 50.5 % Normal 47-70 [facility] Work Phone: Platelet mean volume (Bld) [Entitic vol] 9.3 fL Normal 6.2-12.0 [facility] Work Phone: Lab Report: BMP - copyon Calcium [Mass/Vol] 9.2 mg/dL Normal 8.5-10.1 [facility] Work Phone: Glucose [Mass/Vol] 108 mg/dL Normal 70-110 [facility] Work Phone: Lab Report: SED - copyon ESR (Bld) [Velocity] 32 mm/h High 0-[address] [facility] Work Phone: CUUROrdered By: System Manag er on 03-14-2013 CUUR See Note Normal [facility] Work Phone: Comment on above: Mixed growth of gram negative organisms, including Presumptive Proteus sp. ORGANISM 1: Mixed FloraColony Count <1000MIX CONTAM Mixed Contaminants. Submit new specimen if indicated. CBCDOrdered By: System Manag er on 03-12-2013 Erythrocyte distribution width Auto Ratio (RBC) 12.9 % Normal 11.6-14.6 [facility] Work Phone: Hematocrit Auto Volume Fraction (Bld) 38.5 % Normal 37-47 [facility] Work Phone: Hemoglobin mass conc (Bld) 13.0 g/dL Normal 12.0-15.0 [facility] Work Phone: MCH Auto Entitic mass (RBC) 29.3 pg Normal 27.0-32.0 [facility] Work Phone: MCHC Auto mass conc (RBC) 33.8 {g/gl} Normal 32-36 [facility] Work Phone: MCV Auto Entitic volume (RBC) 86.7 fL Normal 81-99 [facility] Work Phone: Platelet mean volume Auto Entitic volume (Bld) 11.2 fL Normal 6.2-12.0 [facility] Work Phone: Platelets Auto #/vol (Bld) 236 10*3/uL Normal 150-450 [facility] Work Phone: RBC Auto #/vol (Bld) 4.44 {M/mm3} Normal 4.2-5.4 Co mprehensive [facility] Work Phone: WBC Auto #/vol (Bld) 8.0 10*3/uL Normal 4.4-11.0 [facility] prehensive Internal Medicine Work Phone: CBCD 40.2 fL Normal 35.1-43.9 [facility] Work Phone: CBCD 56.4 % Normal 47-70 [facility] Work Phone: CBCD 10.2 % Abnormal 0-10 [facility] Work Phone: CBCD 32.9 % Normal 19-41 [facility] Internal Medicine Work Phone: CBCD 0.1 % Normal 0-1 [facility] Internal Medicine Work Phone: CBCD 0.300 % Normal 0.0-0.9 [facility] Internal Medicine Work Phone: Comment on above: IG% - Immature Granu locytes (promyelocytes, myelocytes andmetamyelocytes) > 1% indicates that a LEFT SHIFT is Present. CBCD 4.5 {X10_3/uL} Normal 2.0-7.7 [facility] Work Phone: CMPOrdered By: System Manage r on 03-12-2013 Albumin mass conc 4.2 g/dL Normal 3.4-5.0 [facility] Internal Medicine Work Phone: Albumin/Globulin mass ratio 1.3 {RATIO} Normal 0.9-2.4 [facility] Internal Medicine Work Phone: ALP enzyme act/vol 91 U/L Normal 50-136 [facility] Internal Medicine Work Phone: ALT enzyme act/vol 21 U/L Normal 12-78 [facility] Internal Medicine Work Phone: AST enzyme act/vol 12 U/L Abnormal 15-37 [facility] Internal Medicine Work Phone: Bilirubin mass conc 0.30 mg/dL Normal 0.00-1.00 [facility] Internal Medicine Work Phone: Calcium mass conc 9.6 mg/dL Normal 8.5-10.1 [facility]pre[facility] Internal Medicine Work Phone: Chloride molar conc 102 mmol/L Normal 98-107 [facility] Internal Medicine Work Phone: CO2 molar conc 29.0 mmol/L Normal 21.0-32.0 [facility] Internal Medicine Work Phone: Creatinine mass conc 0.9 mg/dL Normal 0.6-1.0 [facility] Internal [facility] Work Phone: GFR/1.73 sq M predicted among non-blacks MDRD vol rate/area (S/P/Bld) 67 mL/min/{1.73_m2} Normal Comprehe nsive Internal Medicine Work Phone: Globulin Calculated mass conc (S) 3.3 g/dL Normal 2.7-4.2 [facility] Work Phone: Glucose mass conc 97 mg/dL Normal 70-110 Compreh ensive Internal Medicine Work Phone: Potassium molar conc 5.0 mmol/L Normal 3.5-5.1 Comp rehensive Internal Medicine Work Phone: Protein mass conc 7.5 g/dL Normal 6.4-8.2 Compreh ensive Internal Medicine Work Phone: Sodium molar conc 136 mmol/L Normal 136-145 Compreh ensive [facility] Medicine Work Phone: Urea nitrogen mass conc 19 mg/dL Abnormal 7-18 [facility] Work Phone: Urea nitrogen/Creatinine mass ratio 21.1 {RATIO} Abnormal 10-20 [facility] Work Phone: CMP 5 1 Normal 5-15 [facility] Work Phone: CMP 81 mL/min Normal [facility] Work Phone: MRSADOrdered By: System Jelena nesha on 03-12-2013 MRSAD Positive Abnormal [facility] Work Phone: TSHOrdered By: System Manage r on 03-12-2013 Thyrotropin Qn 2.91 {uIU/mL} Normal 0.358-3.74 Compreh ensive Internal Medicine Work Phone: UAOrdered By: Bead Wire Insulator on 03-12-2013 UA Negative Normal [facility] Work Phone: UA 100 /ul Abnormal [facility] Work Phone: UA Normal Normal [facility] Work Phone: UA 6.0 1 Normal 5.0 - 8.0 [facility] Work Phone: UA 1.020 1 Normal 1.002-1.03 0 [facility] Work Phone: UA Yellow Normal [facility] Work Phone: UA Sl. Cloudy Normal [facility] Work Phone: Replaced Document: Vitor Chamberson 03-08-2013 electrocardiogram interpretation Sinus Rhythm WITHIN NORMAL LIMITS Invalid Interpretation Code [facility] Work Phone: Heart rate 65 /min Invalid Interpretation Code [facility] Work Phone: P wave axis, electrocardiogram 35 deg Invalid Interpretation Code [facility] Work Phone: ID interval, electrocardiogram 158 ms Invalid Interpretation Code [facility] Work Phone: QRS axis, electrocardiogram 26 deg Invalid Interpretation Code [facility] Work Phone: QRS duration, electrocardiogram 80 ms Invalid Interpretation Code [facility] Work Phone: QT interval, electrocardiogram new path ms Invalid Interpretation Code [facility] Work Phone: QT interval/QT interval (corrected for heart rate), electrocardiogram 416 ms Invalid Interpretation Code [facility] Work Phone: T wave axis, electrocardiogram 36 deg Invalid Interpretation Code [facility] Work Phone: Lab Report: [facility] 013 [address], IgM, QL, western blot Negative Normal . [facility] Work Phone: Lab Report: CRPon 01-02-2013 CRP [Mass/Vol] 4.20 mg/L High 0.0-3.0 [facility] Work Phone: MISCOrdered By: System Manag er on 09-22-2012 [facility] Normal [facility] Work Phone: Comment on above: Giardia/Cryptosporid ium EIAGiardia lamblia Ag, EIA NegativeCryptosporidium EIA Negative __TESTING PERFORMED AT [facility]. ORIGINAL REPORT ONFILE IN LAB CONTAINS ADDITIONAL TEST SITE INFORMATION. STOBOrdered By: System Manag er on 09-22-2012 STOB See Note Normal [facility] Work Phone: Comment on above: OCCULT BLOOD POSITIV E SHIGA TOXIN 1 AND SH IGA TOXIN 2 NOT DETECTED A positive result in the glutamate dehydrogenase ofC. Difficile confirms the presence of the organism in a presence of toxigenic C. difficile. An indeterminate result (Antigen Negative/Toxin Positive)will occur in approximately 10-12% of cases and should betreated as a positive result and retested with a freshspecimen. NOTE that Molecular testing for C. difficile isalso available in these cases. C. DIFF ANTIGENS POSITIVE No Salmonella, Shige lla, Yersinia or Campylobacter isolated.No significant amount of Staphylococcus aureusor yeast-like organisms isolated. OVA AND PARASITES EX AM, ROUTINEThese results were obtained using wet preparation(s) and trichrome stained smear. Thistest does not include testingfor Crytosporidium parvum,Cyclospora, or Microsporidia. TESTING PERFORMED AT [facility]. ORIGINAL REPORT ONFILE IN LAB CONTAINS ADDITIONAL TEST SITE INFORMATION. OVA/ PARASITES EXAM NO OVA, CYSTS, OR PARASITES FOUND. WBCSTOrdered By: System Jelena nesha on 09-22-2012 WBC Auto #/vol (Bld) See Note Abnormal Comp rehensive Internal Medicine Work Phone: Comment on above: FECAL WBC LACTOFERRI N Positive: Fecal WBC Lactoferrin present CDIFOrdered By: System Manag er on 05-31-2012 CDIF See Note Normal [facility] Work Phone: Comment on above: A positive result in the glutamate dehydrogenase ofC. Difficile confirms the presence of the organism in a presence of toxigenic C. difficile. An indeterminate result (Antigen Negative/Toxin Positive)will occur in approximaately 10-12% of cases and should betreated as a positive result and retested with a freshspecimen. NOTE that Molecular testing for C. difficile isalso available in these cases. C. DIFF ANTIGENS POSITIVE KOrdered By: Bead Wire Insulator on 05-19-2012 Potassium molar conc 5.0 mmol/L Normal 3.5-5.1 Comp rehensive Internal Medicine Work Phone: KOrdered By: Bead Wire Insulator on 05-18-2012 Potassium molar conc 5.8 mmol/L Abnormal 3.5-5.1 Comp rehensive [facility] Medicine Work Phone: Comment on above: RESULTS CALLED TO HECTOR BELTRAN RN 05/18/12 1348 LAYO STATONREPORT READ BACK BY TIEN. CUSTOrdered By: Mobile Pulse [facility] er on 05-11-2012 CUST See Note Normal [facility] Work Phone: Comment on above: SHIGA TOXIN 1 AND SH IGA TOXIN 2 NOT DETECTED OCCULT BLOOD POSITIV E RESULTS CALLED TO Nena JULES 05/11/12 142SHANON FISHER.REPORT READ BACK BY CLAUDIA . A positive result in the glutamate dehydrogenase ofC. Difficile confirms the presence of the organism in a presence of toxigenic C. difficile. An indeterminate result (Antigen Negative/Toxin Positive)will occur in approximaately 10-12% of cases and should betreated as a positive result and retested with a freshspecimen. NOTE that Molecular testing for C. difficile isalso available in these cases. C. DIFF ANTIGENS POSITIVE No Salmonella, Shige lla, Yersinia or Campylobacter isolated.No significant amount of Staphylococcus aureusor yeast-like organisms isolated. WBCSTOrdered By: System Jelena nesha on 05-11-2012 WBC Auto #/vol (Bld) See Note Abnormal Comp rehensive Internal Medicine Work Phone: Comment on above: FECAL WBC LACTOFERRI N Positive: Fecal WBC Lactoferrin present HgA1C , Office ([id number])Ordere d By: Isis Phoenix on 11-01-2011 Hemoglobin A1c/Hemoglobin.total mass fraction (Bld) 5.8 % Normal 4.6 - 7.1 Comprehensiv e Internal Medicine Work Phone: CALCIFEDIOL ([id number])Ordered B y: Bead Wire Insulator on 10-04-2011 25-Hydroxyvitamin D2+25-Hydroxyvitamin D3 mass conc 22.8 ng/mL Abnormal 30.0-100.0 [facility] Work Phone: Comment on above: Vitamin D deficiency has been defined by the [place] ofMedicine and an Endocrine Society practice guideline as alevel of serum 25-OH vitamin D less than 20 ng/mL (1,2).The Endocrine Society went on to further define vitamin Dinsufficiency as a level between 21 and 29 ng/mL (2).1. IOM ([employer] of Medicine). 2010. Dietary reference intakes for calcium and D. [place]: The National Academies Press.2. Jonna MF, Yomi COPE, Dionte DUNHAM, et al. Evaluation, treatment, and prevention of vitamin D deficiency: an Endocrine Society clinical practice guideline. JCEM. 2010; 96(7):1911-30. PATIENT NOT FASTINGP ERFORMED BY: [facility] ArchiveMaria [facility] [id number] Information: [id number] KOrdered By: Bead Wire Insulator on 07-15-2011 Potassium molar conc 5.1 mmol/L Normal 3.5-5.1 Comp rehensive Internal Medicine Work Phone: CBC WITH MANUAL DIFF ([id number]) Ordered By: Bead Wire Insulator on 07-14-2011 Basophils #/vol (Bld) 0.0 {x10E3/uL} Normal 0.0-0.2 [facility] Work Phone: Comment on above: PATIENT WAS FASTINGP ERFORMED BY: DeskMetricsChilton Memorial HospitalIrpidd1668 [facility] [id number] Information: [id number] Basophils (Bld) [#/Vol] 0.0 10*3/uL Normal 0.0-0.2 [facility]; [facility] Work Phone: Basophils Auto #/vol (Bld) 0.0 {x10E3/uL} Normal 0.0-0.2 [facility] Work Phone: Basophils/100 WBC (Bld) 0 % Normal 0-3 [facility] Work Phone: Comment on above: PATIENT WAS FASTINGP ERFORMED BY: FOBOChilton Memorial HospitalIeavwy4759 [facility] [id number] Information: [id number] Basophils/100 WBC Auto (Bld) 0 % Normal 0-3 [facility] Work Phone: Eosinophils #/vol (Bld) 0.0 {x10E3/uL} Normal 0.0-0.4 [facility] Work Phone: Comment on above: PATIENT WAS FASTINGP ERFORMED BY: FOBOChilton Memorial HospitalGlptpw0272 [facility] [id number] Information: [id number] Eosinophils (Bld) [#/Vol] 0.0 10*3/uL Normal 0.0-0.4 [facility]; [facility] Work Phone: Eosinophils Auto #/vol (Bld) 0.0 {x10E3/uL} Normal 0.0-0.4 [facility] Work Phone: Eosinophils/100 WBC (Bld) 0 % Normal 0-7 [facility] Work Phone: Comment on above: PATIENT WAS FASTINGP ERFORMED BY: [facility] HospitalSamaresChilton Memorial HospitalPplsdv7575 [facility] [id number] Information: [id number] Eosinophils/100 WBC Auto (Bld) 0 % Normal 0-7 [facility] Work Phone: Erythrocyte distribution width Auto Ratio (RBC) 13.6 % Normal 11.7-15.0 [facility] Work Phone: Erythrocyte distribution width Ratio (RBC) 13.6 % Normal 11.7-15.0 [facility] Work Phone: Comment on above: PATIENT WAS FASTINGP ERFORMED BY: [facility]6370 [facility] [id number] Information: [id number] Hematocrit Auto Volume Fraction (Bld) 36.3 % Normal 34.0-44.0 [facility] Work Phone: Hematocrit Volume Fraction (Bld) 36.3 % Normal 34.0-44.0 [facility] Work Phone: Comment on above: PATIENT WAS FASTINGP ERFORMED BY: [address] [id number] Information: [id number] Hemoglobin mass conc (Bld) 11.9 g/dL Normal 11.5-15.0 [facility] Work Phone: Comment on above: PATIENT WAS FASTINGP ERFORMED BY: [place] [id number] [facility] [id number] Information: [id number] Immature granulocytes #/vol (Bld) 0.0 {x10E3/uL} Normal 0.0-0.1 [facility] Work Phone: Comment on above: PATIENT WAS FASTINGP ERFORMED BY: [facility]6370 [facility] [id number] Information: [id number] Immature granulocytes (Bld) [#/Vol] 0.0 10*3/uL Normal 0.0-0.1 [facility]; [facility] Work Phone: Immature granulocytes/100 WBC (Bld) 0 % Normal 0-2 [facility] Work Phone: Comment on above: PATIENT WAS FASTINGP ERFORMED BY: [place] [id number] [facility] [id number] Information: [id number] Lymphocytes #/vol (Bld) 1.7 {x10E3/uL} Normal 0.7-4.5 [facility] Work Phone: Comment on above: PATIENT WAS FASTINGP ERFORMED BY: PEGGY [facility]6370 [facility] [id number] Information: [id number] Lymphocytes (Bld) [#/Vol] 1.7 10*3/uL Normal 0.7-4.5 [facility]; [facility] Work Phone: Lymphocytes Auto #/vol (Bld) 1.7 {x10E3/uL} Normal 0.7-4.5 [facility] Work Phone: Lymphocytes/100 WBC (Bld) 34 % Normal 14-46 [facility] Internal Medicine Work Phone: Comment on above: PATIENT WAS FASTINGP ERFORMED BY: PEGGY [address] [id number] Information: [id number] Lymphocytes/100 WBC Auto (Bld) 34 % Normal - [facility] Work Phone: MCH Auto Entitic mass (RBC) 29.0 pg Normal 27.0-34.0 [facility] Internal Medicine Work Phone: MCH Entitic mass (RBC) 29.0 pg Normal 27.0-34.0 [facility] Internal Medicine Work Phone: Comment on above: PATIENT WAS FASTINGP ERFORMED BY: PEGGY [address] [id number] Information: [id number] MCHC Auto mass conc (RBC) 32.8 g/dL Normal 32.0-36.0 [facility] Internal Medicine Work Phone: MCHC mass conc (RBC) 32.8 g/dL Normal 32.0-36.0 [facility] Internal Medicine Work Phone: Comment on above: PATIENT WAS FASTINGP ERFORMED BY: PEGGY [place] [id number] [facility] [id number] Information: [id number] MCV Auto Entitic volume (RBC) 89 fL Normal 80-98 [facility] Work Phone: MCV Entitic volume (RBC) 89 fL Normal 80-98 [facility] Work Phone: Comment on above: PATIENT WAS FASTINGP ERFORMED BY: [place] [id number] [facility] [id number] Information: [id number] Monocytes #/vol (Bld) 0.5 {x10E3/uL} Normal 0.1-1.0 [facility] Work Phone: Comment on above: PATIENT WAS FASTINGP ERFORMED BY: [place] [id number] [facility] [id number] Information: [id number] Monocytes (Bld) [#/Vol] 0.5 10*3/uL Normal 0.1-1.0 [facility]; [facility] Work Phone: Monocytes Auto #/vol (Bld) 0.5 {x10E3/uL} Normal 0.1-1.0 [facility] Work Phone: Monocytes/100 WBC (Bld) 10 % Normal 06-02 [facility] Work Phone: Comment on above: PATIENT WAS FASTINGP ERFORMED BY: [place] [id number] [facility] [id number] Information: [id number] Monocytes/100 WBC Auto (Bld) 10 % Normal - [facility] Work Phone: Neutrophils #/vol (Bld) 2.8 {x10E3/uL} Normal 1.8-7.8 [facility] Work Phone: Comment on above: PATIENT WAS FASTINGP ERFORMED BY: [facility]6370 [facility] [id number] Information: [id number] Neutrophils (Bld) [#/Vol] 2.8 10*3/uL Normal 1.8-7.8 [facility]; [facility] Work Phone: Neutrophils Auto #/vol (Bld) 2.8 {x10E3/uL} Normal 1.8-7.8 [facility] Work Phone: Neutrophils/100 WBC (Bld) 56 % Normal 40-74 [facility] Work Phone: Comment on above: PATIENT WAS FASTINGP ERFORMED BY: PEGGY [place] [id number] [facility] [id number] Information: [id number] Neutrophils/100 WBC Auto (Bld) 56 % Normal 40-74 [facility] Work Phone: Platelets #/vol (Bld) 302 {x10E3/uL} Normal 140-415 [facility] Work Phone: Comment on above: PATIENT WAS FASTINGP ERFORMED BY: [address] [id number] Information: [id number] Platelets (Bld) [#/Vol] 302 10*3/uL Normal 140-415 [facility]; [facility] Work Phone: Platelets Auto #/vol (Bld) 302 {x10E3/uL} Normal 140-415 [facility] Work Phone: RBC #/vol (Bld) 4.10 {x10E6/uL} Normal 3.80-5.10 [facility] Work Phone: Comment on above: PATIENT WAS FASTINGP ERFORMED BY: [place] [id number] [facility] [id number] Information: [id number] RBC (Bld) [#/Vol] 4.10 10*6/uL Normal 3.80-5.10 Compr ens[facility]; [facility] Work Phone: RBC Auto #/vol (Bld) 4.10 {x10E6/uL} Normal 3.80-5.10 [facility] Work Phone: WBC #/vol (Bld) 5.0 {x10E3/uL} Normal 4.0-10.5 Compr ens[facility] Work Phone: Comment on above: PATIENT WAS FASTINGP ERFORMED BY: PEGGY LabBladimir Jxvqyg7748 [facility] [id number] Information: [id number] WBC (Bld) [#/Vol] 5.0 10*3/uL Normal 4.0-10.5 [facility] Internal Medicine; [facility] Work Phone: WBC Auto #/vol (Bld) 5.0 {x10E3/uL} Normal 4.0-10.5 [facility] Work Phone: LIPID PANEL ([id number])Ordered B y: Bead Wire Insulator on 07-14-2011 Cholesterol in HDL mass conc 62 mg/dL Normal [facility] Work Phone: Comment on above: According to ATP-III Guidelines, HDL-C >59 mg/dL is considered anegative risk factor for CHD. PATIENT WAS FASTINGP ERFORMED BY: PEGGY Luislin6370 [facility] [id number] Cholesterol in LDL mass conc 162 mg/dL Abnormal 0-99 [facility] Work Phone: Comment on above: PATIENT WAS FASTINGP ERFORMED BY: PEGGY LabBladimir LuisUwkwbs6313 [facility] [id number] Cholesterol in LDL/Cholesterol in HDL mass ratio 2.6 {ratio_units} Normal 0.0-3.2 [facility] Work Phone: Comment on above: PATIENT WAS FASTINGP ERFORMED BY: PEGGY LabBladimir LuisPhwrah1077 [facility] [id number] Cholesterol in VLDL mass conc 24 mg/dL Normal 5-40 [facility] Work Phone: Comment on above: PATIENT WAS FASTINGP ERFORMED BY: PEGGY LabBladimir Tygurv1407 [facility] [id number] Cholesterol mass conc 248 mg/dL Abnormal 100-199 Com prehensive Internal Medicine Work Phone: Comment on above: PATIENT WAS FASTINGP ERFORMED BY: PEGGY LabBladimir LuisAomwur6738 [facility] [id number] Triglyceride mass conc 121 mg/dL Normal 0-149 [facility] Internal Medicine Work Phone: Comment on above: PATIENT WAS FASTINGP ERFORMED BY: PEGGY [facility] Lnrbtc5726 [facility] [place] [id number] METABOLIC PANEL, COMPREHENSI VE ([id number])Ordered By: Bead Wire Insulator on 07-14-2011 Albumin mass conc 4.1 g/dL Normal 3.6-4.8 Compreh [facility] Internal Medicine Work Phone: Comment on above: PATIENT WAS FASTINGP ERFORMED BY: PEGGY [facility] Eyqlyu8258 Spencer RoadAdventhealthin [place] [id number] Albumin/Globulin mass ratio 1.9 {ratio} Normal 1.1-2.5 [facility] Internal Medicine Work Phone: Comment on above: PATIENT WAS FASTINGP ERFORMED BY: PEGGY LabCofrank LuisApvboo1138 [facility] [id number] ALP [Catalytic activity/Vol] 86 U/L Normal 25-165 [facility]; [facility] Internal Medicine Work Phone: ALP enzyme act/vol 86 [iU]/L Normal 25-165 [facility] Internal Medicine Work Phone: Comment on above: PATIENT WAS FASTINGP ERFORMED BY: PEGGY LabCofrank LuisBekriq7563 [facility] [id number] ALT [Catalytic activity/Vol] 18 U/L Normal 0-40 [facility] Internal Medicine; [facility] Internal Medicine Work Phone: ALT enzyme act/vol 18 [iU]/L Normal 0-40 [facility] Internal Medicine Work Phone: Comment on above: PATIENT WAS FASTINGP ERFORMED BY: PEGGY [facility] Perdbl6153 [facility] [id number] AST [Catalytic activity/Vol] 16 U/L Normal 0-40 [facility] Internal Medicine; [facility] Internal Medicine Work Phone: AST enzyme act/vol 16 [iU]/L Normal 0-40 [facility] Internal Medicine Work Phone: Comment on above: PATIENT WAS FASTINGP ERFORMED BY: PEGGY [facility] Fjqtck3349 [facility] [id number] Bilirubin mass conc 0.1 mg/dL Normal 0.0-1.2 Compr ehensive Internal Medicine Work Phone: Comment on above: PATIENT WAS FASTINGP ERFORMED BY: PEGGY LabCofrank LuisBtuxqc5588 [facility] [id number] Calcium mass conc 9.7 mg/dL Normal 8.6-10.2 Compreh ensive [facility] Medicine Work Phone: Comment on above: PATIENT WAS FASTINGP ERFORMED BY: PEGGY [facility] Pwzqtp2505 [facility] [id number] Chloride molar conc 102 mmol/L Normal 97-108 Compr ehensive Internal Medicine Work Phone: Comment on above: PATIENT WAS FASTINGP ERFORMED BY: PEGGY LabCofrank LuisQntadj1607 [facility] [id number] CO2 molar conc 26 mmol/L Normal 20-32 Comprehens ousmane Internal Medicine Work Phone: Comment on above: PATIENT WAS FASTINGP ERFORMED BY: PEGGY LabCofrank LuisMsystw7187 [facility] [id number] Creatinine mass conc 0.82 mg/dL Normal 0.57-1.00 [facility] Work Phone: Comment on above: PATIENT WAS FASTINGP ERFORMED BY: PEGGY LabCofrank LuisEdhgbl8623 [facility] [id number] GFR/1.73 sq M predicted among blacks CKD-EPI vol rate/area (S/P/Bld) 89 mL/min/1.73 Normal [facility] Work Phone: Comment on above: PATIENT WAS FASTINGP ERFORMED BY: [facility] Dxvnpg2221 [facility] [place] [id number] GFR/1.73 sq M predicted among non-blacks CKD-EPI vol rate/area (S/P/Bld) 77 mL/min/1.73 Normal Comprehensiv e Internal Medicine Work Phone: Comment on above: PATIENT WAS FASTINGP ERFORMED BY: PEGGY [facility] Fmmded9399 [facility] [id number] Globulin Calculated mass conc (S) 2.2 g/dL Normal 1.5-4.5 [facility] Work Phone: Globulin mass conc (S) 2.2 g/dL Normal 1.5-4.5 Co mprehensive [facility] Work Phone: Comment on above: PATIENT WAS FASTINGP ERFORMED BY: PEGGY Nielsen6370 [facility] [id number] Glucose mass conc 105 mg/dL Abnormal 65-99 Compreh ensive Internal Medicine Work Phone: Comment on above: PATIENT WAS FASTINGP ERFORMED BY: PEGGY Luislin6370 [facility] [id number] Potassium molar conc 5.8 mmol/L Abnormal 3.5-5.2 Comp rehensive Internal Medicine Work Phone: Comment on above: Client Requested [place] PATIENT WAS FASTINGP ERFORMED BY: PEGGY Luislin6370 [facility] [id number] Protein mass conc 6.3 g/dL Normal 6.0-8.5 Compreh ensive Internal Medicine Work Phone: Comment on above: PATIENT WAS FASTINGP ERFORMED BY: PEGGY Luislin6370 [facility] [id number] Sodium molar conc 138 mmol/L Normal 134-144 Compreh ensive Internal Medicine Work Phone: Comment on above: PATIENT WAS FASTINGP ERFORMED BY: PEGGY Luislin6370 [facility] [id number] Urea nitrogen mass conc 17 mg/dL Normal 8-27 [facility] Work Phone: Comment on above: PATIENT WAS FASTINGP ERFORMED BY: PEGGY Luislin6370 [facility] [id number] Urea nitrogen/Creatinine mass ratio 21 mg/mg Normal 11-26 [facility] Work Phone: Comment on above: PATIENT WAS FASTINGP ERFORMED BY: PEGGY Luislin6370 [facility] [id number] MICROALBUMINOrdered By: Lumific em Pneumatic Tester on 07-14-2011 Albumin DL <= 20 mg/L mass conc (U) 1.6 ug/mL Normal 0.0-17.0 [facility] Work Phone: Comment on above: PATIENT WAS FASTINGP ERFORMED BY: [employer] Orhfvj7607 [facility] [id number] Albumin/Creatinine mass ratio (U) 3.6 {mg/g_creat} Normal 0.0-30.0 [facility] Work Phone: Comment on above: PATIENT WAS FASTINGP ERFORMED BY: [facility] [facility] Xvomhq0207 [facility] [id number] Creatinine mass conc (U) 44.2 mg/dL Normal 15.0-278.0 [facility] Work Phone: Comment on above: PATIENT WAS FASTINGP ERFORMED BY: [employer] LabSamaresrp Canshh7585 [facility] [id number] TSH ([id number])Ordered By: Lumifice m Pneumatic Tester on 07-14-2011 Thyrotropin Qn 1.600 {uIU/mL} Normal 0.450-4.50 0 [facility] Work Phone: Comment on above: PATIENT WAS FASTINGP ERFORMED BY: [facility] [facility] Jvzbsq7008 [facility] [id number] Anaerobic and Aerobic Cultur eOrdered By: Bead Wire Insulator on 06-30-2011 Bacteria identified Aer cx Nom (Unsp spec) Final report Abnormal Comprehen sive Internal Medicine Work Phone: Bacteria identified Anaer cx Nom (Unsp spec) Final report Normal [facility] Work Phone: Bacteria identified Cx Nom (Unsp spec) [id number] Normal [facility] Work Phone: Comment on above: No anaerobic growth in 72 hours. Bacteria identified Cx Nom (Unsp spec) MRSA Abnormal [facility] Work Phone: Comment on above: Methicillin - resist ant Staphylococcus aureusHeavy growthBased on resistance to oxacillin this isolate would be resistant toall currently available beta-lactam antimicrobial agents, with theexception of the newer cephalosporins with anti-MRSA activity, such asCeftaroline S = Susceptible; I = Intermediate; R = Resistant P = Positive; N = Negative MICS are expressed in micrograms per mL Antibiotic RSLT#1 RSLT#2 RSLT#3 RSLT#4Ciprofloxacin SClindamycin SErythromycin RGentamicin SLevofloxacin SLinezolid SOxacillin RPenicillin RRifampin STetracycline STrimethoprim/Sulfa SVancomycin S PELVIS WITH IV CONTRASTOrder ed By: Bead Wire Insulator on 06-27-2011 PELVIS WITH IV CONTRAST See Note Normal [facility] Work Phone: Comment on above: PROCEDURE: CT PELVIS WITH CONTRAST REASON FOR EXAM: Female, 61 years old. Possible abscess in the rightpubic area. TECHNIQUE: Transaxial imaging of the pelvis was performed without oralcontrast. 100CC ml of Isovue 300 contrast was administeredintravenously.Multiplanar coronal and sagittal images were reformatted. COMPARISON: None. FINDINGS:There is a 3.3 cm x 4.1 cm x 7.4 cm increased markings in thesubcutaneousfat overlying the right side of the mons pubis. There is evidence ofoverlying skin thickening. Is also evidence of an enlarged rightinguinallymph nodes, most likely secondary to the inflammatory process. Normal urinary bladder. Normal visualized small intestine. Normal visualized colon. There is no pelvic fluid. There is evidence of a 1.5 cm x 1.8 cm cyst inthe right ovary. There is diffuse atherosclerotic calcification of the pelvic arteries. There is evidence of a small umbilical hernia containing fat. 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 IMPRESSION:Inflammatory process as described in the right mons pubis. Signed:Jimi Morales M.D.June 27, 2011 at 12:57:03 PM EDTElectronically Signed GP/GP Professional Interpretation Provided By: [facility], , To consult with a radiologist regarding this report, please call our [id number] line @ Dictated on 06/27/11 1138 by Andrew SCHULZ,MaximilianrieleTranscribed on 06/27/11 1300 by ITS IMPORTSign by Jimi Morales MD on 06/27/11 1301 Sign by: Jimi Morales MD CUWOrdered By: System Manage r on 06-24-2011 CUW See Note Normal [facility] Work Phone: Comment on above: GRAM STAIN RARE WHIT E BLOOD CELLS 1+ RED BLOOD CELLS NO ORGANISMS SEEN CUW No growth aerobically. Normal Co mprehensive [facility] Work Phone: CHEST, PA AND LATERALOrdered By: Bead Wire Insulator on 02-26-2011 CHEST, PA AND LATERAL See Note Normal Com prehensive Internal Medicine Work Phone: Comment on above: PROCEDURE: X-RAY JAHAIRA ST REASON FOR EXAM: Female, 61 years old. Cough TECHNIQUE: PA and lateral views of the chest. COMPARISON: None. FINDINGS: The lungs are expanded. There is no demonstrated parenchymalabnormality.There is no demonstrated pleural abnormality. Normal heart and pericardium. Normal mediastinum and kyree. Normal visualized pulmonary arteries.Normalvisualized aortic arch and descending thoracic aorta. Normal visualized thoracic spine. Normal visualized ribs, clavicles, andshoulders. There is no demonstrated abnormality of the visualized soft tissuestructures of the upper abdomen. IMPRESSION:Normal x-ray examination of the chest. To consult with a radiologist regarding this report, please call our [id number] line @ Dictated on 02/26/11 1004 by Sami Forde MDTranscribed on 02/28/11 0155 by ITS IMPORTSign by Sami Forde MD on 02/28/11 0156 Sign by: Sami Forde MD VIT D,25 [id number] By: [employer] stem Pneumatic Tester on 02-26-2011 VIT D,25 [id number] 13.2 ng/mL Abnormal 30.0-100.0 Comprehens ousmane Internal Medicine Work Phone: Comment on above: Vitamin D deficiency has been defined by the Sims ofMedicine and an Endocrine Society practice guideline as alevel of serum 25-OH vitamin D less than 20 ng/mL (1,2).The Endocrine Society went on to further define vitamin Dinsufficiency as a level between 21 and 29 ng/mL (2).1. IOM ([employer]s of Medicine). 2011. Dietary reference intakes for calcium and D. [place]: The National Academies Press.2. Jonna MF, Yomi COPE, Dionte DUNHAM, et al. Evaluation, treatment, and prevention of vitamin D deficiency: an Endocrine Society clinical practice guideline. JCEM. 2010; 96(7):1911-30.Performed at: [facility] [employer] ([facility])[address] [id number] Director: Em Christy MD, Phone: [phone] LIONEL CULTURE-OTHER (11413)Ord ered By: Bead Wire Insulator on 02-25-2011 Bacteria identified Respiratory culture Nom (Unsp spec) BETAGF Normal [facility] Work Phone: Comment on above: Beta hemolytic Strep tococcus, group FModerate growth PATIENT NOT FASTINGP ERFORMED BY: [address] [id number] Information: SRC:MONTY [id number] Bacteria identified Respiratory culture Nom (Unsp spec) Final report Normal [facility] Work Phone: Comment on above: PATIENT NOT FASTINGP ERFORMED BY: [address] [id number] Information: SRC:THRT [id number] Rapid Strep Test, Office (51 180)Ordered By: Mer Solorio on 02-25-2011 S. pyogenes Ag EIA Ql (Throat) Negative Normal [facility]; [facility] Work Phone: S. pyogenes Ag IA Ql (Unsp spec) Negative Normal [facility] Work Phone: Blood Glucose , Office ([phone] 2)Ordered By: Deacon Luna on 01-11-2011 Glucose Glucometer molar conc (dC) 84 1 Normal [facility] Work Phone: TSHOrdered By: System Manage r on 01-08-2011 Thyrotropin Qn 0.18 {uIU/mL} Abnormal 0.358-3.74 Compreh ensive Internal Medicine Work Phone: TSHOrdered By: System Manage r on 10-07-2010 Thyrotropin Qn 14.90 {uIU/mL} Abnormal 0.358-3.74 Compre hensive Internal Medicine Work Phone: OCCULT BLD,iFOBOrdered By: Luis Fernando [employer] Pneumatic Tester on 01-23-2010 OCCULT BLD,iFOB See Note Normal Comprehen sive Internal Medicine Work Phone: Comment on above: OCCULT BLOOD POSITIV E No Salmonella, Shige lla, Yersinia or Campylobacter isolated.No significant amount of Staphylococcus aureusor yeast-like organisms isolated. FECAL WBCs NONE SEEN SHIGA TOXIN 1 AND SH IGA TOXIN 2 NOT DETECTED C. DIFF ANTIGENS NEG ATIVE OVA AND PARASITES EX AM, ROUTINE These results were obtained using wet preparation(s) and trichrome stained smear. This test does not include testing for Crytosporidium parvum, Cyclospora, or Microsporidia. [facility]. ORIGINAL REPORT ON FILE IN LAB CONTAINS ADDITIONAL TEST SITE INFORMATION. OVA/ PARASITES EXAM NO OVA, CYSTS, OR PARASITES FOUND. CBCD,SMEAR DIFFOrdered By: Luis Fernando [employer] Pneumatic Tester on 01-22-2010 Eosinophils/100 WBC Auto (Bld) 1 % Normal 0-5 [facility] Work Phone: Erythrocyte distribution width Auto Ratio (RBC) 13.4 % Normal 11.6-14.6 [facility] Work Phone: Hematocrit Auto Volume Fraction (Bld) 39.2 % Normal 37-47 [facility] Work Phone: Hemoglobin mass conc (Bld) 13.3 g/dL Normal 12.0-16.0 [facility] Internal Medicine Work Phone: Lymphocytes/100 WBC Auto (Bld) 26 % Normal 19-41 [facility] Internal Medicine Work Phone: MCH Auto Entitic mass (RBC) 30.3 pg Normal 27.0-32.0 [facility] Internal Medicine Work Phone: MCHC Auto mass conc (RBC) 33.8 g/dL Normal 32-36 [facility] Internal Medicine Work Phone: MCV Auto Entitic volume (RBC) 89.4 fL Normal 81-99 [facility] Internal Medicine Work Phone: Monocytes/100 WBC Auto (Bld) 10 % Normal 0-10 [facility] Internal Medicine Work Phone: Neutrophils Auto #/vol (Bld) 4.0 3/uL Normal 2.0-7.7 [facility] Internal Medicine Work Phone: Platelets Auto #/vol (Bld) 231 10*3/uL Normal 150-450 [facility] Internal Medicine Work Phone: RBC Auto #/vol (Bld) 4.38 {M/mm3} Normal 4.2-5.4 [facility] Internal Medicine Work Phone: WBC Auto #/vol (Bld) 7.0 10*3/uL Normal 4.4-11.0 [facility] Internal Medicine Work Phone: CBCD,SMEAR DIFF 63 % Normal 47-70 [facility] Internal Medicine Work Phone: CBCD,SMEAR DIFF SeeNote Normal [facility] Internal Medicine Work Phone: Comment on above: Result: ADEQUATE Result: NORM C+C CBCD,SMEAR DIFF RARE Normal [facility] Internal Medicine Work Phone: CBCD,SMEAR DIFF 100 1 Normal [facility] Internal Medicine Work Phone: LIONEL CULTURE-OTHER ([id number])Ord ered By: Bead Wire Insulator on 01-21-2010 Bacteria identified Respiratory culture Nom (Unsp spec) Final report Normal [facility] Work Phone: Comment on above: PATIENT NOT FASTINGP ERFORMED BY: [facility] Kygvak6258 [facility] [id number] Information: SRC:MONTY [id number] Bacteria identified Respiratory culture Nom (Unsp spec) BETAGC Normal [facility] Work Phone: Comment on above: Beta hemolytic Strep tococcus, group CScant growthPenicillin continues to be the drug of choice for infectionscaused by beta hemolytic streptococci in groups A,B,C and G.No penicillin resistance has been described among theseorganisms and surveillance for emerging resistance is notrecommended. (NO Romero. Clinical Microbiology Newsletter,1993; SIMONE Saba et al. Diagnostic Microbiology andInfectious Disease, July,.) PATIENT NOT FASTINGP ERFORMED BY: FOBO Wklsud7263 [facility] [id number] Information: SRC:MONTY [id number] Rapid Strep Test, Office ([phone])Ordered By: Claudia Jules on 01-21-2010 S. pyogenes Ag EIA Ql (Throat) Negative Normal [facility]; [facility] Work Phone: S. pyogenes Ag IA Ql (Unsp spec) Negative Normal [facility] Work Phone: CBCD,SMEAR DIFFOrdered By: Luis Fernando ystem Pneumatic Tester on 12-29-2009 Band form neutrophils/100 WBC Manual cnt (Bld) 2 % Normal 0-5 [facility] Work Phone: Eosinophils/100 WBC Auto (Bld) 3 % Normal 0-5 [facility] Work Phone: Erythrocyte distribution width Auto Ratio (RBC) 13.2 % Normal 11.6-14.6 [facility] Work Phone: Hematocrit Auto Volume Fraction (Bld) 39.3 % Normal 37-47 [facility] Work Phone: Hemoglobin mass conc (Bld) 13.4 g/dL Normal 12.0-16.0 [facility] Work Phone: Lymphocytes/100 WBC Auto (Bld) 34 % Normal 19-41 [facility] Work Phone: MCH Auto Entitic mass (RBC) 30.8 pg Normal 27.0-32.0 [facility] Work Phone: MCHC Auto mass conc (RBC) 34.2 g/dL Normal 32-36 [facility] Work Phone: MCV Auto Entitic volume (RBC) 90.0 fL Normal 81-99 [facility] Work Phone: Monocytes/100 WBC Auto (Bld) 7 % Normal 0-10 [facility] Work Phone: Neutrophils Auto #/vol (Bld) 3.4 3/uL Normal 2.0-7.7 [facility] Work Phone: Platelets Auto #/vol (Bld) 235 10*3/uL Normal 150-450 [facility] Work Phone: RBC Auto #/vol (Bld) 4.37 {M/mm3} Normal 4.2-5.4 [facility] Work Phone: WBC Auto #/vol (Bld) 6.0 10*3/uL Normal 4.4-11.0 [facility] Work Phone: CBCD,SMEAR DIFF 54 % Normal 47-70 [facility] Work Phone: CBCD,SMEAR DIFF 100 1 Normal Comprehen [facility] Work Phone: COMP METABOLICOrdered By: Ed stem Pneumatic Tester on 12-29-2009 Albumin mass conc 3.8 g/dL Normal 3.4-5.0 [facility]pre[facility] Work Phone: Albumin/Globulin mass ratio 1.2 {RATIO} Normal 0.9-2.4 [facility] Work Phone: ALP enzyme act/vol 79 U/L Normal 50-136 [facility] Work Phone: ALT enzyme act/vol 28 U/L Normal 12-78 [facility] Work Phone: Anion gap 3 molar conc 6 mmol/L Normal 5-15 [facility] Work Phone: AST enzyme act/vol 10 U/L Abnormal 15-37 Compre hensive [facility] Work Phone: Bilirubin mass conc 0.40 mg/dL Normal 0.00-1.00 Compr ehensive [facility] Work Phone: Calcium mass conc 9.2 mg/dL Normal 8.5-10.1 [facility] Work Phone: Chloride molar conc 103 mmol/L Normal 98-107 Compr ehensive [facility] Work Phone: CO2 molar conc 30.0 mmol/L Normal 21.0-32.0 Comprehen [facility] Work Phone: Creatinine mass conc 0.9 mg/dL Normal 0.6-1.0 Comp rehensive [facility] Work Phone: GFR/1.73 sq M predicted among blacks MDRD vol rate/area (S/P/Bld) 82 mL/min/{1.73_m2} Normal Comprehens[facility] e [facility] Work Phone: GFR/1.73 sq M.predicted MDRD vol rate/area 68 mL/min/{1.73_m2} Normal [facility] Work Phone: Globulin Calculated mass conc (S) 3.1 g/dL Normal 2.7-4.2 [facility] Work Phone: Glucose mass conc 100 mg/dL Normal 70-110 [facility] Work Phone: Potassium molar conc 5.0 mmol/L Normal 3.5-5.1 Comp rehensive [facility] Work Phone: Protein mass conc 6.9 g/dL Normal 6.4-8.2 [facility] Work Phone: Sodium molar conc 139 mmol/L Normal 136-145 [facility] Work Phone: Urea nitrogen mass conc 18 mg/dL Normal 7-18 [facility] Work Phone: Urea nitrogen/Creatinine mass ratio 20.0 {RATIO} Normal 10-20 [facility] Work Phone: FREE [id number] By: System Jenna nunez on 12-29-2009 T3 free mass conc 2.7 pg/mL Normal 2.18-3.98 [facility] Work Phone: KNEE,4 OR MORE VIEWSOrdered By: Bead Wire Insulator on 12-29-2009 KNEE,4 OR MORE VIEWS See Note Normal Comp rehensive [facility] Work Phone: Comment on above: Exam Number: [id number] LINICAL:The patient is a 59 year old female. Patient stepped up on chair and felt pain medial lateral and posterior. X-RAY EXAMINATION RIGHT KNEE TECHNIQUE:Four views of the knee. COMPARISON:None. FINDINGS:There is no fracture identified. Seen in the AP projection, the patella appears to project medial to its expected position. This is likely caused by rotation of the patient. There is mild osteophyte formation compatible with mild degenerative change. To complete the examination, a repeat AP view will be obtained to confirm the positioning of the patella. IMPRESSION:No fracture is identified.In the AP view, the patella is projected medially. This is most likely due to rotation of the knee rather than dislocation of the patella. The view will be repeated for further evaluation. Reported By: DACIA FRENCH M.D. Result: ADEQUATE Result: NORM C+C NMR LIPOPROFILEOrdered By: Luis Fernando maguiretem Pneumatic Tester on 12-29-2009 Cholesterol mass conc 232 mg/dL Abnormal Com prehensive [facility] Work Phone: Triglyceride mass conc 85 mg/dL Normal [facility] Work Phone: NMR LIPOPROFILE . Normal Comprehen sive [facility] Work Phone: NMR LIPOPROFILE 21.3 nm Normal Comprehen [facility] Work Phone: Comment on above: Small LDL-P and LDL Size are associated with CVD risk, butnot after LDL-P is taken into account. INTERPRETATIVE INFORMATION PARTICLE CONCENTRATION AND SIZE <--Lower CVD Risk Higher CVD Risk--> LDL AND HDL PARTICLES Percentile in Reference Population HDL-P (total) High 75th 50th 25th Low >34.9 34.9 30.5 26.7 <26.7 . Small LDL-P Low 25th 50th 75th High <117 117 527 839 >839 . LDL Size <-Large (Pattern A)-> <-Small (Pattern B)-> 23.0 20.6 20.5 19.0 NMR LIPOPROFILE 58 1 Abnormal Comprehen [facility] Work Phone: Comment on above: LP-IR Score is inacc urate if patient is non-fasting.The LP-IR Score combines information from lipoproteinparticle concentration and size to give improvedassessment of insulin resistance and diabetes risk.Small LDL-P, LDL Particle Size, HDL-Particle, andLP-IR Score have been validated by [employer]but not cleared by US FDA; the clinical utilityof these test results has not been fully established.INSULIN RESISTANCE MARKER <--Insulin Sensitive Insulin Resistant--> Percentile in Reference PopulationInsulin Resistance ScoreLP-IR Score Low 25th 50th 75th High <27 27 45 63 >63Performed at: [facility] [employer] [id number] [place], [place] [id number] Director: Doyle Bianchi PhD, Phone: [phone] NMR LIPOPROFILE 57 mg/dL Normal Comprehen sive [facility] Work Phone: NMR LIPOPROFILE 37.7 umol/L Normal Comprehe nsive [facility] Work Phone: NMR LIPOPROFILE 1996 nmol/L Abnormal Comprehe nsive [facility] Work Phone: Comment on above: Low < 1000 Moderate 1000 - 1299 Borderline-High 1300 - 1599 High 1600 - 2000 Very High > 2000 NMR LIPOPROFILE 869 nmol/L Abnormal [facility] Work Phone: NMR LIPOPROFILE 158 mg/dL Abnormal [facility] Work Phone: Comment on above: LDL-C is inaccurate if patient is nonfasting. . Optimal < 100 Above optimal 100 - 129 Borderline 130 - 159 High 160 - 189 Very high > 189 . T4 FREE DIRECTOrdered By: Sy stem Pneumatic Tester on 12-29-2009 T4 free mass conc 1.14 ng/dL Normal 0.76-1.46 Compreh ensive [facility] Work Phone: TSHOrdered By: System Manage r on 12-29-2009 Thyrotropin Qn 6.27 {uIU/mL} Abnormal 0.358-3.74 Compreh [facility] Work Phone: LOWER EXT.JOINT ONLY (ROUTIN E)Ordered By: Bead Wire Insulator on 07-14-2009 LOWER EXT.JOINT ONLY (ROUTINE) See Note Normal [facility] Work Phone: Comment on above: Exam Number: [id number] CLINICAL:59-year-old female with an 8 day history of posterior left knee pain MRI LEFT KNEE TECHNIQUE:Standardized fat and water weighted pulse sequences were obtained inall 3 orthogonal planes. COMPARISON:None. 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 There is greater than a 50% loss of hyaline cartilage thickness,without exposure of the subchondral bone of the medial femorotibialcompartment (Grade III, Outerbridge classification). Normal medialfemoral condyle and tibial plateau. Normal medial collateral ligamentous complex (MCL). Normal distalsemimembranosus, gracilis and semitendinosus tendons. There is blunting of the posterior horn of the lateral meniscus, asmall free edge radial tear cannot be excluded (sagittal protondensity series 5 image 28). There is degeneration of the anteriorhorn of the lateral meniscus with linear signal extending to theinferior articular surface on one image (sagittal proton densityseries 5 image 28). This is suggestive of a possible tear. There is greater than a 50% loss of hyaline cartilage thickness,without exposure of the subchondral bone of the lateral femorotibialcompartment (Grade III, Outerbridge classification). Normal lateralfemoral condyle and tibial plateau. Normal proximal tibiofibular articulation. Normal lateralcollateral (fibular) ligament. Normal popliteus tendon. Normal biceps femoris tendon. Normal anterior cruciate ligament (ACL). Normal posterior cruciate ligament (PCL). Normal congruent patellofemoral articulation. There is greater than a 50% loss of hyaline cartilage thickness,without exposure of the subchondral bone of the medial patellarfacet (Grade III, Outerbridge classification). There is greaterthan a 50% loss of hyaline cartilage thickness, without exposure ofthe subchondral bone of the lateral patellar facet (Grade III,Outerbridge classification). There is less than a 50% loss of hyaline cartilage thickness,without exposure of the subchondral bone of the trochlea (Grade II,Outerbridge classification). Normal medial and lateral patellar retinaculum. Normal Hoffa's fat pad. Normal quadriceps tendon. Normal patellartendon. There is a small volume joint effusion. The soft tissues are unremarkable. IMPRESSION:Degeneration of the medial meniscus. Possible tears of the lateral meniscus as described above. Tricompartmental chondromalacia. Small joint effusion. Reported By: MELVIN WALSH M.D. CBCD,SMEAR DIFFOrdered By: Luis Fernando [facility] Pneumatic Tester on 10-31-2008 Eosinophils/100 WBC Auto (Bld) 5 % Normal 0-5 [facility] Work Phone: Erythrocyte distribution width Auto Ratio (RBC) 13.5 % Normal 11.6-14.6 [facility] Work Phone: Hematocrit Auto Volume Fraction (Bld) 40.1 % Normal 37-47 [facility] Work Phone: Hemoglobin mass conc (Bld) 13.6 g/dL Normal 12.0-16.0 [facility] Work Phone: Lymphocytes/100 WBC Auto (Bld) 39 % Normal 19-41 [facility] Work Phone: MCH Auto Entitic mass (RBC) 29.5 pg Normal 27.0-32.0 [facility] Work Phone: MCHC Auto mass conc (RBC) 33.9 g/dL Normal 32-36 [facility] Work Phone: MCV Auto Entitic volume (RBC) 86.9 fL Normal 81-99 [facility] Work Phone: Monocytes/100 WBC Auto (Bld) 6 % Normal 0-10 [facility] Work Phone: Platelets Auto #/vol (Bld) 234 10*3/uL Normal 150-450 [facility] Work Phone: RBC Auto #/vol (Bld) 4.61 {M/mm3} Normal 4.2-5.4 [facility] Work Phone: WBC Auto #/vol (Bld) 4.5 10*3/uL Normal 4.4-11.0 [facility] Work Phone: CBCD,SMEAR DIFF SeeNote Normal [facility] Work Phone: Comment on above: Result: ADEQUATE Result: NORM C+C Result: NEGATIVE CBCD,SMEAR DIFF 100 1 Normal [facility] Work Phone: CBCD,SMEAR DIFF 50 % Normal 47-70 [facility] Work Phone: COMP METABOLICOrdered By: Ed stem Pneumatic Tester on 10-31-2008 Albumin mass conc 3.9 g/dL Normal 3.4-5.0 Compre[facility] Work Phone: Albumin/Globulin mass ratio 1.1 {RATIO} Normal 0.9-2.4 [facility] Work Phone: ALP enzyme act/vol 86 U/L Normal 50-136 [facility] Work Phone: ALT enzyme act/vol 27 U/L Abnormal 30-65 [facility] Work Phone: Anion gap 3 molar conc 9 mmol/L Normal 5-15 [facility] Work Phone: AST enzyme act/vol 13 U/L Abnormal 15-37 [facility] Work Phone: Bilirubin mass conc 0.40 mg/dL Normal 0.00-1.00 Compr [facility] Work Phone: Calcium mass conc 8.9 mg/dL Normal 8.5-10.1 Compreh ensive [facility] Work Phone: Chloride molar conc 100 mmol/L Normal 98-107 Compr ehensive [facility] Work Phone: CO2 molar conc 28.0 mmol/L Normal 21.0-32.0 Comprehen sive [facility] Work Phone: Creatinine mass conc 1.0 mg/dL Normal 0.6-1.0 Comp rehensive [facility] Work Phone: GFR/1.73 sq M predicted among blacks MDRD vol rate/area (S/P/Bld) 74 mL/min/{1.73_m2} Normal Comprehensiv e [facility] Work Phone: GFR/1.73 sq M.predicted MDRD vol rate/area 61 mL/min/{1.73_m2} Normal [facility] e [facility] Work Phone: Globulin Calculated mass conc (S) 3.5 g/dL Normal 2.7-4.2 [facility] Work Phone: Glucose mass conc 94 mg/dL Normal 70-110 Compre[facility] ensive [facility] Work Phone: Potassium molar conc 4.5 mmol/L Normal 3.5-5.1 Comp rehensive [facility] Work Phone: Protein mass conc 7.4 g/dL Normal 6.4-8.2 Compre[facility] Work Phone: Sodium molar conc 137 mmol/L Normal 136-145 [facility] Work Phone: Urea nitrogen mass conc 14 mg/dL Normal 7-18 [facility] Work Phone: Urea nitrogen/Creatinine mass ratio 14.0 {RATIO} Normal 10-20 [facility] Work Phone: D BILIOrdered By: Cammie adams on 10-31-2008 Bilirubin.direct mass conc 0.10 mg/dL Normal 0.00-0.30 [facility] Work Phone: MICROALBOrdered By: Cammie garcia on 10-31-2008 Creatinine mass conc 4.0 {mg/g_CRE} Normal [facility] Work Phone: MICROALB 7.9 mg/L Normal [facility] Work Phone: MICROALB 195.6 mg/dL Normal [facility] Work Phone: ROUTINE UAOrdered By: Bead Wire Insulator on 10-31-2008 ROUTINE UA CLOUDY Normal [facility] Work Phone: ROUTINE UA YELLOW Normal [facility] Work Phone: ROUTINE UA 7.5 1 Normal 5.0-8.0 [facility] Work Phone: ROUTINE UA 1.010 1 Normal 1.002-1.03 0 [facility] Work Phone: ROUTINE UA 0.2 EU/dl Normal 0.2 - 1.0 [facility] Work Phone: TSHOrdered By: System Manage r on 10-31-2008 Thyrotropin Qn 35.40 {uIU/mL} Abnormal 0.358-3.74 Compre hensive [facility] Work Phone: ANKLE,MIN 3 VIEWSOrdered By: Bead Wire Insulator on 10-29-2008 ANKLE,MIN 3 VIEWS See Note Normal Compreh ensive [facility] Work Phone: Comment on above: Exam Number: [id number] RIGHT ANKLE 3 VIEWS HISTORYPain. There is minimal arthritic change in the ankle joint. The anklemortis appears symmetric. No acute traumatic or bony destructivechanges seen. IMPRESSIONMinimal arthritis. Reported By: VAMSI SANDERS M.D. Rapid Strep Test, Office ([phone])Ordered By: RACHEL Bartlett on 07-10-2008 S. pyogenes Ag EIA Ql (Throat) Negative Normal [facility]; [facility] Work Phone: S. pyogenes Ag IA Ql (Unsp spec) Negative Normal [facility] Work Phone: SPINE, CERVICAL (ROUTINE)Ord ered By: Bead Wire Insulator on 04-29-2008 SPINE, CERVICAL (ROUTINE) See Note Normal [facility] Work Phone: Comment on above: Exam Number: [id number] MRI CERVICAL SPINE CLINICAL STATEMENTNeck pain, worse on the right, right arm pain. The midline posterior fossa, foramen magnum and upper cervical spineat C2-3 are unremarkable. At C3-4 there is minimal disc bulging that flattens the ventral thecalsac. The canal and foramina are not stenotic. At C4-5 there is mild loss of disc height. Disc and osteophyte mildlyflatten the ventral thecal sac. There is some uncinate hypertrophy onboth sides with mild narrowing of the left foramen. At C5-6 there is disc and osteophyte transversely compressing theventral thecal sac with minimal indentation of the ventral cord. Uncinate hypertrophy narrows both foramina mildly. At C6-7 there is disc and osteophyte transversely compressing theventral thecal sac without mass effect on the cord. There is uncinatehypertrophy narrowing foramina, greater to the right. At C7-T1 the disc canal and foramina are unremarkable. IMPRESSIONMultilevel degenerative changes from C3 to C7. There is slight cordcompression at C5-6 and foraminal narrowing that appears greatest atC6-7 on the right. Reported By: JEFFREY VELEZ M.D. PANCHO-D [id number] By: Syst em Pneumatic Tester on 04-18-2007 Nuclear Ab Ql (S) 31 AU/mL Normal 0-99 Compreh ensive [facility] Work Phone: Comment on above: Negative <100 Equivo william 100 - 120 Positive >120 C-REACTIVE PROTOrdered By: Luis Fernando maguiretem Pneumatic Tester on 04-18-2007 CRP mass conc 5.02 mg/L Normal 0.0-6.0 Comprehensi [facility] Work Phone: Comment on above: Test performed using the Dimension C-Reactive ProteinExtended Range assay method. This assay meets the AHA/CDC 2003 recommendations fordetermining patients at high risk for cardiovasculardisease. Reference: High risk CRP >3.0 mg/L EB-NAg [id number] By: Luis Fernando maguiretem Pneumatic Tester on 04-18-2007 EB-NAg [id number] 377 AU/mL Abnormal 0-99 Comprehen [facility] Work Phone: Comment on above: Negative <100 Equivo william 100 - 120 Positive >120 EBV [id number] By: S ystem Pneumatic Tester on 04-18-2007 EBV [id number] 45 AU/mL Normal 0-99 Comprehen sive [facility] Work Phone: Comment on above: Negative <100 Equivo william 100 - 120 Positive >120 EBV [id number] 33 AU/mL Normal 0-99 Comprehen [facility]ive [facility] Work Phone: Comment on above: Negative <100 Equivo william 100 - 120 Positive >120 ESROrdered By: System Manage r on 04-18-2007 ESR Velocity (Bld) 12 mm/h Normal 0-30 Compre hensive [facility] Work Phone: FOLATES,SERUMOrdered By: [employer] Pneumatic Tester on 04-18-2007 Folate mass conc 9.70 ng/mL Normal Comprehe nsive [facility] Work Phone: RA LATEX [id number] By: [employer] tem Pneumatic Tester on 04-18-2007 RA LATEX 6502 6.3 {IU/mL} Normal 0.0-13.9 [facility] Work Phone: Comment on above: Performed At: [id number] [place], [place] [id number] TSHOrdered By: System Manage r on 04-18-2007 Thyrotropin Qn 0.74 {uIU/mL} Normal 0.34-4.82 Compreh ensive [facility] Work Phone: VITAMIN [id number] By: Suresh tadeo Pneumatic Tester on 04-18-2007 Cobalamin (Vitamin B12) mass conc 298 pg/mL Normal 211-911 [facility] Work Phone: CBC, EMPLOYEEOrdered By: [employer] Pneumatic Tester on 04-03-2007 Erythrocyte distribution width Auto Ratio (RBC) 13.6 % Normal 11.6-14.6 [facility] Work Phone: Hematocrit Auto Volume Fraction (Bld) 37.6 % Normal 37-47 [facility] Work Phone: Hemoglobin mass conc (Bld) 13.0 g/dL Normal 12.0-16.0 [facility] Work Phone: MCH Auto Entitic mass (RBC) 30.6 pg Normal 27.0-32.0 [facility] Work Phone: MCHC Auto mass conc (RBC) 34.7 g/dL Normal 32-36 [facility] Work Phone: MCV Auto Entitic volume (RBC) 88.1 fL Normal 81-99 [facility] Work Phone: Platelet mean volume Auto Entitic volume (Bld) 8.9 fL Normal 6.5-12.0 [facility] Work Phone: Platelets Auto #/vol (Bld) 254 10*3/uL Normal 150-450 [facility] Work Phone: RBC Auto #/vol (Bld) 4.27 {M/mm3} Normal 4.2-5.4 [facility] Work Phone: WBC Auto #/vol (Bld) 6.4 10*3/uL Normal 4.4-11.0 Com prehensive [facility] Work Phone: EMP PROFOrdered By: Cammie garcia on 04-03-2007 Albumin mass conc 3.8 g/dL Normal 3.4-5.0 Compreh ensive [facility] Work Phone: Albumin/Globulin mass ratio 1.2 {RATIO} Normal 0.9-2.4 [facility] Work Phone: ALP enzyme act/vol 80 U/L Normal 50-136 [facility] Work Phone: AST enzyme act/vol 11 U/L Abnormal 15-37 [facility] Work Phone: Bilirubin mass conc 0.21 mg/dL Normal 0.00-1.00 Compr ehensive [facility] Work Phone: Calcium mass conc 8.9 mg/dL Normal 8.5-10.1 Compreh ensive [facility] Work Phone: Cholesterol in HDL mass conc 48 mg/dL Normal [facility] Work Phone: Comment on above: Reference Range HDL <40 mg/dL Low HDL Cholesterol HDL >or= 60 mg/dL High HDL Cholesterol Cholesterol in LDL mass conc 178 mg/dL Abnormal 0-130 [facility] Work Phone: Cholesterol in VLDL mass conc 21 mg/dL Normal 5-40 [facility] Work Phone: Cholesterol mass conc 247 mg/dL Abnormal Com prehensive [facility] Work Phone: Comment on above: <200 mg/dL Desirable 200-240 mg/dL Borderline >240 mg/dL High Risk Creatinine mass conc 1.1 mg/dL Abnormal 0.6-1.0 Comp rehensive [facility] Medicine Work Phone: Globulin Calculated mass conc (S) 3.1 g/dL Normal 2.7-4.2 [facility] Work Phone: Comment on above: Please Note Refer ence Interval Change Glucose mass conc 103 mg/dL Normal 70-110 Compreh ensive [facility] Work Phone: LDH enzyme act/vol 190 U/L Normal 100-190 Compre hensive [facility] Work Phone: Protein mass conc 6.9 g/dL Normal 6.4-8.2 Compreh ensive [facility] Work Phone: Triglyceride mass conc 106 mg/dL Normal Co [facility] Work Phone: Comment on above: Serum Triglycerides Reference Interval Normal <150 mg/dL Borderline high 150 - 199 mg/dL High 200 - 499 mg/dL Very High > or = 500 mg/dL Urea nitrogen mass conc 17 mg/dL Normal 7-18 [facility] Work Phone: Urea nitrogen/Creatinine mass ratio 15.5 {RATIO} Normal 10-20 [facility] Work Phone: EMP PROF 4.0 mg/dL Normal 2.5-4.9 [facility] Work Phone: EMP PROF 5.5 mg/dL Normal 2.6-6.0 [facility] Work Phone: EMP URINALYSISOrdered By: Sy stem Pneumatic Tester on 04-03-2007 Protein mass conc SeeNote Normal Compreh ensive [facility] Work Phone: Comment on above: Result: NEGATIVE EMP URINALYSIS 1.015 1 Normal 1.002-1.03 0 [facility] Work Phone: EMP URINALYSIS 0.2 EU/dl Normal 0.2 - 1.0 [facility] Work Phone: EMP URINALYSIS SeeNote Normal [facility] Work Phone: Comment on above: Result: NEGATIVE Result: SL CLOUDY EMP URINALYSIS YELLOW Normal Comprehens [facility] Work Phone: EMP URINALYSIS 6.5 1 Normal 5.0-8.0 [facility] Work Phone: MYOCARD PERF SPECT REST/STRE SSOrdered By: Bead Wire Insulator on 01-16-2007 MYOCARD PERF SPECT REST/STRESS See Note Normal [facility] Work Phone: Comment on above: Exam Number: [id number] MYOCARDIAL PERFUSION SCAN TECHNIQUEThe patient was injected with 14.2 mCi of Tc99m Cardiolite andsubsequently rest SPECT Cardiolite nuclear imaging was obtained in thehorizontal long, vertical long, and short axes views. The patientunderwent pharmacologic (Adenosine) evaluation with a peak heart rateof 123 beats per minute (75% predicted maximum heart rate) with a peakblood pressure of 160/100 mmHg. The patient was injected with 45 mCiof Tc99m Cardiolite and subsequently stress SPECT Cardiolite nuclearimaging was obtained in the horizontal long, vertical long, and shortaxes views. Gated Cardiolite study at peak stress was obtained. INTERPRETATIONRest and stress SPECT Cardiolite nuclear imaging demonstrate theappearance of diminished myocardial perfusion/tracer uptake in the midto distal anteroseptal segments/septal apical segments withimprovement at rest. There is end-systolic thickening andbrightening. The gated Cardiolite study demonstrates myocardialthickening and inward wall motion. The reported LVEF is 81%. Theaforementioned changes are noted on stress polar map images. Thesechanges appear suggestive of stress-induced myocardial ischemia,however, a component of shifting soft tissue/breast attenuation cannotbe excluded. IMPRESSION1. Rest and stress SPECT Cardiolite nuclear imaging demonstratemyocardial perfusion changes suggestive of stress-induced myocardialischemia involving portions of the mid to distal anteroseptal/septalapical segments; however, a component of shifting soft tissue/breastattenuation cannot be excluded.2. The gated Cardiolite study reports an LVEF of 81%. Reported By: KRISTYN LEBLANC M.D. C-Reactive Protein ([id number])Or dered By: Melissa Arnett on 12-21-2006 CRP mass conc 3.7 mg/L Normal 0.0-4.9 [facility] Work Phone: Comment on above: PATIENT NOT FASTINGP ERFORMED BY: [facility] [id number] [facility] [id number] CBC With Differential/Platel etOrdered By: Bead Wire Insulator on 12-21-2006 Basophils Auto #/vol (Bld) 0.1 {x10E3/uL} Normal 0.0-0.2 [facility] Work Phone: Basophils/100 WBC Auto (Bld) 1 % Normal 0-3 [facility] Work Phone: Eosinophils Auto #/vol (Bld) 0.1 {x10E3/uL} Normal 0.0-0.4 [facility] Medicine Work Phone: Eosinophils/100 WBC Auto (Bld) 2 % Normal 0-7 [facility] Work Phone: Erythrocyte distribution width Auto Ratio (RBC) 13.8 % Normal 11.7-15.0 [facility] Work Phone: Hematocrit Auto Volume Fraction (Bld) 39.6 % Normal 34.0-44.0 [facility] Work Phone: Hemoglobin mass conc (Bld) 13.4 g/dL Normal 11.5-15.0 [facility] Work Phone: Lymphocytes Auto #/vol (Bld) 1.9 {x10E3/uL} Normal 0.7-4.5 [facility] Work Phone: Lymphocytes/100 WBC Auto (Bld) 35 % Normal 14-46 [facility] Work Phone: MCH Auto Entitic mass (RBC) 30.7 pg Normal 27.0-34.0 [facility] Work Phone: MCHC Auto mass conc (RBC) 33.8 g/dL Normal 32.0-36.0 [facility] Work Phone: MCV Auto Entitic volume (RBC) 91 fL Normal 80-98 [facility] Work Phone: Monocytes Auto #/vol (Bld) 0.5 {x10E3/uL} Normal 0.1-1.0 [facility] Work Phone: Monocytes/100 WBC Auto (Bld) 9 % Normal 4-13 [facility] Work Phone: Neutrophils Auto #/vol (Bld) 2.9 {x10E3/uL} Normal 1.8-7.8 [facility] Work Phone: Neutrophils/100 WBC Auto (Bld) 53 % Normal 40-74 [facility] Work Phone: Platelets Auto #/vol (Bld) 234 {x10E3/uL} Normal 140-415 [facility] Work Phone: RBC Auto #/vol (Bld) 4.36 {x10E6/uL} Normal 3.80-5.10 [facility] Work Phone: WBC Auto #/vol (Bld) 5.4 {x10E3/uL} Normal 4.0-10.5 [facility] Work Phone: Comp. Metabolic Panel (14)Or dered By: Bead Wire Insulator on 12-21-2006 Albumin mass conc 4.3 g/dL Normal 3.5-5.5 Compreh ensive [facility] Work Phone: Albumin/Globulin mass ratio 1.8 {ratio} Normal 1.1-2.5 [facility] Work Phone: ALP enzyme act/vol 85 [iU]/L Normal 25-150 Compre [facility] Internal Medicine Work Phone: ALT enzyme act/vol 23 [iU]/L Normal 0-40 Compre hensive [facility] Medicine Work Phone: AST enzyme act/vol 20 [iU]/L Normal 0-40 Compre hensive [facility] Medicine Work Phone: Bilirubin mass conc 0.4 mg/dL Normal 0.1-1.2 Compr ehensive [facility] Medicine Work Phone: Calcium mass conc 9.3 mg/dL Normal 8.5-10.6 Compreh ensive [facility] Work Phone: Chloride molar conc 99 mmol/L Normal 96-109 Compr ehensive [facility] Work Phone: CO2 molar conc 25 mmol/L Normal 20-32 Comprehens [facility] Work Phone: Creatinine mass conc 1.0 mg/dL Normal 0.5-1.5 Comp rehensive Internal Medicine Work Phone: Globulin Calculated mass conc (S) 2.4 g/dL Normal 1.5-4.5 [facility] Work Phone: Glucose mass conc 106 mg/dL Abnormal 65-99 Compreh ensive [facility] Work Phone: Potassium molar conc 5.1 mmol/L Normal 3.5-5.5 Comp rehensive [facility] Medicine Work Phone: Protein mass conc 6.7 g/dL Normal 6.0-8.5 Compreh ensive [facility] Work Phone: Sodium molar conc 136 mmol/L Normal 135-148 Compre[facility] ens[facility] Work Phone: Urea nitrogen mass conc 21 mg/dL Normal 5-26 [facility] Work Phone: Urea nitrogen/Creatinine mass ratio 21 mg/mg Normal 8-27 [facility] Work Phone: Creatine Kinase,Total,SerumO rdered By: Bead Wire Insulator on 12-21-2006 CK enzyme act/vol 41 U/L Normal 24-173 Compreh ensive [facility] Work Phone: LIPID PANEL ([id number])Ordered B y: Melissa Arnett on 12-21-2006 Cholesterol in HDL mass conc 53 mg/dL Normal 40-59 [facility] Work Phone: Comment on above: PATIENT NOT FASTINGP ERFORMED BY: PEGGY [facility] [id number] [facility] [id number] Cholesterol in LDL mass conc 170 mg/dL Abnormal 0-99 [facility] Work Phone: Comment on above: PATIENT NOT FASTINGP ERFORMED BY: PEGGY [facility] [id number] [facility] [place] [id number] Cholesterol in LDL/Cholesterol in HDL mass ratio SPRCS Normal [facility] Work Phone: Comment on above: If initial LDL-frederick sterol result is >100 mg/dL, assess forrisk factors. PATIENT NOT FASTINGP ERFORMED BY: PEGGY [facility] [id number] [facility] [id number] Cholesterol in LDL/Cholesterol in HDL mass ratio 3.2 {ratio_units} Normal 0.0-3.2 [facility] Work Phone: Comment on above: PATIENT NOT FASTINGP ERFORMED BY: PEGGY [facility] [id number] [facility] [id number] Cholesterol in VLDL mass conc 21 mg/dL Normal 5-40 [facility] Work Phone: Comment on above: PATIENT NOT FASTINGP ERFORMED BY: PEGGY [facility] [id number] [facility] [id number] Cholesterol mass conc 244 mg/dL Abnormal 100-199 Com prehensive Internal Medicine Work Phone: Comment on above: PATIENT NOT FASTINGP ERFORMED BY: CB [facility] [id number] [facility] [id number] Triglyceride mass conc 105 mg/dL Normal 0-149 Co m[facility] Work Phone: Comment on above: PATIENT NOT FASTINGP ERFORMED BY: PEGGY [facility] [id number] [facility] [id number] TSHOrdered By: System Manage r on 12-21-2006 Thyrotropin Qn 0.077 {uIU/mL} Abnormal 0.350-5.50 0 [facility] Work Phone: Upper Respiratory CultureOrd ered By: Bead Wire Insulator on 12-21-2006 Bacteria identified Respiratory culture Nom (Unsp spec) RRF Normal [facility] Work Phone: Comment on above: Routine respiratory ventura Bacteria identified Respiratory culture Nom (Unsp spec) Final report Normal [facility] Work Phone: SPINE, LUMBAR (ROUTINE)Order ed By: Bead Wire Insulator on 09-15-2006 SPINE, LUMBAR (ROUTINE) See Note Normal [facility] Work Phone: Comment on above: Exam Number: [id number] MRI LUMBAR SPINE CLINICAL STATEMENTLow back pain, right hip pain. Sagittal and axial Tl and T2-weighted scans were acquired. From T12 to L5 intervertebral disc height, signal and contours arenormal. The canal and foramina are not stenotic. Mild facetdegenerative changes are present at L4-5. At L5-S1 there is advanced facet degenerative arthritis on both sides.Intervertebral disc height and contours are normal. The spinal canaland foramina are generous. IMPRESSIONNo canal stenosis or nerve root impingement is demonstrated. There isdegenerative facet arthritis at L4-5 and more severely at L5-S1 onboth sides. Reported By: JEFFREY VELEZ M.D. BMPOrdered By: System Manage r on 04-28-2006 Anion gap 3 molar conc 10 mmol/L Normal 5-15 [facility] Work Phone: Calcium mass conc 9.4 mg/dL Normal 8.5-10.1 Compreh ensive [facility] Work Phone: Chloride molar conc 98 mmol/L Normal 98-107 Compr ehensive [facility] Work Phone: CO2 molar conc 28.9 mmol/L Normal 22.0-29.0 Comprehen sive Internal [facility] Work Phone: Creatinine mass conc 0.8 mg/dL Normal 0.6-1.0 Comp rehensive [facility] Work Phone: Glucose mass conc 86 mg/dL Normal 70-110 Compreh ensive [facility] Work Phone: Potassium molar conc 4.9 mmol/L Normal 3.5-5.1 Comp rehensive [facility] Work Phone: Sodium molar conc 137 mmol/L Normal 136-145 Compreh ensive [facility] Work Phone: Urea nitrogen mass conc 17 mg/dL Normal 7-18 [facility] Work Phone: Urea nitrogen/Creatinine mass ratio 21.3 {RATIO} Abnormal 10-20 [facility] Work Phone: CBCOrdered By: System Manage r on 04-19-2006 Erythrocyte distribution width Auto Ratio (RBC) 14.0 % Normal 11.6-14.6 [facility] Work Phone: Hematocrit Auto Volume Fraction (Bld) 39.5 % Normal 37-47 [facility] Work Phone: Hemoglobin mass conc (Bld) 13.6 g/dL Normal 12.0-16.0 [facility] Work Phone: MCH Auto Entitic mass (RBC) 30.0 pg Normal 27.0-32.0 [facility] Work Phone: MCHC Auto mass conc (RBC) 34.4 g/dL Normal 32-36 [facility] Work Phone: MCV Auto Entitic volume (RBC) 87.3 fL Normal 81-99 [facility] Work Phone: Platelets Auto #/vol (Bld) 260 10*3/uL Normal 150-450 [facility] Work Phone: RBC Auto #/vol (Bld) 4.53 {M/mm3} Normal 4.2-5.4 [facility] Work Phone: WBC Auto #/vol (Bld) 6.8 10*3/uL Normal 4.4-11.0 [facility] prehensive Internal Medicine Work Phone: GLUOrdered By: System Manage r on 02-02-2006 Glucose mass conc 102 mg/dL Normal 70-110 Compreh ensive [facility] Work Phone: GLUPOrdered By: System Manag er on 02-02-2006 GLUP 53 mg/dL Abnormal [facility] Work Phone: [id number] By: System Manag er on 02-02-2006 T3UP 1.9 1 Normal 1.4-4.5 [facility] Work Phone: T3UP 30 % Normal 30-39 [facility] Work Phone: T4 THYROXINOrdered By: Suresh tadeo Pneumatic Tester on 02-02-2006 T4 THYROXIN 6.4 ug/dL Normal 4.8-13.9 [facility] Work Phone: TSHOrdered By: System Manage r on 02-02-2006 Thyrotropin Qn 20.71 {uIU/mL} Abnormal 0.34-4.82 [facility] Internal Medicine Work Phone: Vital Signs Date Time Vital Sign Value Performing Clinician Facility 04-26-2024 15:28-0500 Body height 160.02 cm Mayra Escobedo ELECTRICAL PROSPECTOR-C Work Phone: [facility] 04-26-2024 15:28-0500 Body mass index (BMI) [Ratio] 30.8 kg/m2 Mayra Escobedo ELECTRICAL PROSPECTOR-C Work Phone: [facility] 04-26-2024 15:28-0500 Body weight 78.92 kg Mayra Escobedo ELECTRICAL PROSPECTOR-C Work Phone: [facility] 04-26-2024 15:28-0500 Diastolic blood pressure 83 mm[Hg] Mayra Escobedo ELECTRICAL PROSPECTOR-C Work Phone: [facility] 04-26-2024 15:28-0500 Heart rate 87 /min Mayra Escobedo ELECTRICAL PROSPECTOR-C Work Phone: [facility] 04-26-2024 15:28-0500 Respiratory rate 18 /min Mayra Escobedo ELECTRICAL PROSPECTOR-C Work Phone: [facility] 04-26-2024 15:28-0500 SaO2% (BldA) [Mass fraction] 96 % Mayra Escobedo ELECTRICAL PROSPECTOR-C Work Phone: [facility] 04-26-2024 15:28-0500 Systolic blood pressure 145 mm[Hg] Mayra Escobedo ELECTRICAL PROSPECTOR-C Work Phone: [facility] 04-02-2024 12:00-0500 Body temperature 97.7 [degF] Mayra Gregg ELECTRICAL PROSPECTOR-C Work Phone: [facility] 04-02-2024 12:00-0500 Diastolic blood pressure 81 mm[Hg] Mayra Gregg ELECTRICAL PROSPECTOR-C Work Phone: [facility] 04-02-2024 12:00-0500 Heart rate 71 /min Mayra Gregg ELECTRICAL PROSPECTOR-C Work Phone: [facility] 04-02-2024 12:00-0500 Respiratory rate 14 /min Mayra Gregg ELECTRICAL PROSPECTOR-C Work Phone: [facility] 04-02-2024 12:00-0500 SaO2% (BldA) [Mass fraction] 96 % Mayra Gregg ELECTRICAL PROSPECTOR-C Work Phone: [facility] 04-02-2024 12:00-0500 Systolic blood pressure 178 mm[Hg] Mayra Gregg ELECTRICAL PROSPECTOR-C Work Phone: [facility] 04-02-2024 11:20-0500 Body mass index (BMI) [Ratio] 31.2 kg/m2 Mayra Gregg ELECTRICAL PROSPECTOR-C Work Phone: [facility] 04-02-2024 10:18-0500 Body weight 80 kg Mayra Gregg ELECTRICAL PROSPECTOR-C Work Phone: [facility] 06-15-2023 15:07-0400 Body temperature 98.5 [degF] [facility] 06-15-2023 15:07-0400 Diastolic blood pressure 76 mm[Hg] [facility] 06-15-2023 15:07-0400 Heart rate 73 /min [facility] 06-15-2023 15:07-0400 Respiratory rate 18 /min [facility] 06-15-2023 15:07-0400 SaO2% (BldA) [Mass fraction] 98 % [facility] 06-15-2023 15:07-0400 Systolic blood pressure 140 mm[Hg] [facility] 06-14-2023 16:06-0400 Body height 162.56 cm [facility] 06-14-2023 16:06-0400 Body mass index (BMI) [Ratio] 30.8 kg/m2 [facility] 06-14-2023 16:06-0400 Body weight 81.4 kg [facility] 06-14-2023 16:06-0400 Inhaled oxygen flow rate 2 L/min [facility] 12-14-2022 14:34-0400 Body height 162.56 cm Yuki Fischer LPN [facility]; [facility] Work Phone: 12-14-2022 14:34-0400 Body mass index (BMI) [Ratio] 32.14 kg/m2 Yuki Fischer LPN [facility]; [facility] Work Phone: 12-14-2022 14:34-0400 Body surface area Derived from formula 1.9 m2 Yuki Fischer LPN [facility]; [facility] Work Phone: 12-14-2022 14:34-0400 Body temperature 98.1 [degF] Yuki Fischer LPN [facility]; [facility] Work Phone: 12-14-2022 14:34-0400 Body weight 84.94 kg Yuki Fischer LPN [facility]; [facility] Work Phone: 12-14-2022 14:34-0400 Diastolic blood pressure 92 mm[Hg] Yuki Fischer LPN [facility]; [facility] Work Phone: 12-14-2022 14:34-0400 Heart rate 74 /min Yuki Fischer LPN [facility]; [facility] Work Phone: 12-14-2022 14:34-0400 Respiratory rate 16 /min Yuki Fischer LPN [facility]; [facility] Work Phone: 12-14-2022 14:34-0400 SaO2% (BldA) [Mass fraction] 96 % Yuki Fischer LPN [facility]; [facility] Work Phone: 12-14-2022 14:34-0400 Systolic blood pressure 148 mm[Hg] Yuki Amado BALLESTEROS [facility]; [facility] Work Phone: 10-31-2022 09:24-0400 Body height 162.56 cm RACHEL Bartlett LPN [facility]; [facility] Work Phone: 10-31-2022 09:24-0400 Body mass index (BMI) [Ratio] 32.61 kg/m2 RACHEL Bartlett LPN [facility]; [facility] Work Phone: 10-31-2022 09:24-0400 Body surface area Derived from formula 1.91 m2 RACHEL Bartlett LPN [facility]; [facility] Work Phone: 10-31-2022 09:24-0400 Body temperature 97.6 [degF] RACHEL Bartlett LPN [facility]; [facility] Work Phone: 10-31-2022 09:24-0400 Body weight 86.18 kg RACHEL Bartlett LPN [facility]; [facility] Work Phone: 10-31-2022 09:24-0400 Diastolic blood pressure 78 mm[Hg] RACHEL Bartlett LPN [facility]; [facility] Work Phone: 10-31-2022 09:24-0400 Heart rate 98 /min RACHEL Bartlett LPN [facility]; [facility] Work Phone: 10-31-2022 09:24-0400 Respiratory rate 18 /min RACHEL Bartlett LPN [facility]; [facility] Work Phone: 10-31-2022 09:24-0400 SaO2% (BldA) [Mass fraction] 98 % RACHEL Bartlett LPN [facility]; [facility] Work Phone: 10-31-2022 09:24-0400 Systolic blood pressure 120 mm[Hg] RACHEL Bartlett LPN [facility]; [facility] Work Phone: 10-25-2022 11:15-0400 Respiratory rate 16 /min [facility] 10-25-2022 09:41-0400 Body height 160.02 cm [facility] 10-25-2022 09:41-0400 Body mass index (BMI) [Ratio] 32.9 kg/m2 [facility] 10-25-2022 09:41-0400 Body temperature 97.3 [degF] [facility] 10-25-2022 09:41-0400 Body weight 84.36 kg [facility] 10-25-2022 09:41-0400 Diastolic blood pressure 95 mm[Hg] [facility] 10-25-2022 09:41-0400 Heart rate 80 /min [facility] 10-25-2022 09:41-0400 SaO2% (BldA) [Mass fraction] 98 % [facility] 10-25-2022 09:41-0400 Systolic blood pressure 187 mm[Hg] [facility] 07-01-2022 14:08-0400 Body height 162.56 cm [facility]; [facility] Work Phone: 07-01-2022 14:08-0400 Body mass index (BMI) [Ratio] 32.7 kg/m2 [facility]; [facility] Work Phone: 07-01-2022 14:08-0400 Body surface area Derived from formula 1.92 m2 [facility]; [facility] Work Phone: 07-01-2022 14:08-0400 Body temperature 98 [degF] [facility]; [facility] Work Phone: 07-01-2022 14:08-0400 Body weight 86.41 kg [facility]; [facility] Work Phone: 07-01-2022 14:08-0400 Diastolic blood pressure 80 mm[Hg] [facility]; [facility] Work Phone: 07-01-2022 14:08-0400 Heart rate 78 /min [facility]; [facility] Work Phone: 07-01-2022 14:08-0400 Respiratory rate 16 /min [facility]; [facility] Work Phone: 07-01-2022 14:08-0400 SaO2% (BldA) [Mass fraction] 97 % [facility]; [facility] Work Phone: 07-01-2022 14:08-0400 Systolic blood pressure 124 mm[Hg] [facility]; [facility] Work Phone: 06-14-2022 10:55-0400 Body height 162.56 cm Radha Slarb ASSISTANT ART DIRECTOR [facility]; [facility] Work Phone: 06-14-2022 10:55-0400 Body mass index (BMI) [Ratio] 32.96 kg/m2 Radha Slarb ASSISTANT ART DIRECTOR [facility]; [facility] Work Phone: 06-14-2022 10:55-0400 Body surface area Derived from formula 1.92 m2 Radha Slarb ASSISTANT ART DIRECTOR [facility]; [facility] Work Phone: 06-14-2022 10:55-0400 Body weight 87.09 kg Radha Slarb ASSISTANT ART DIRECTOR [facility]; [facility] Work Phone: 03-28-2022 14:14-0500 Body height 162.56 cm Radha Slarb ASSISTANT ART DIRECTOR [facility]; [facility] Work Phone: 03-28-2022 14:14-0500 Body mass index (BMI) [Ratio] 32.96 kg/m2 Radha Slarb ASSISTANT ART DIRECTOR [facility]; [facility] Work Phone: 03-28-2022 14:14-0500 Body surface area Derived from formula 1.92 m2 Radha Slarb ASSISTANT ART DIRECTOR [facility]; [facility] Work Phone: 03-28-2022 14:14-0500 Body temperature 97.3 [degF] Radha Slarb ASSISTANT ART DIRECTOR [facility]; [facility] Work Phone: 03-28-2022 14:14-0500 Body weight 87.09 kg Radha Slarb ASSISTANT ART DIRECTOR [facility]; [facility] Work Phone: 03-28-2022 14:14-0500 Diastolic blood pressure 96 mm[Hg] Radha Slarb ASSISTANT ART DIRECTOR [facility]; [facility] Work Phone: 03-28-2022 14:14-0500 Heart rate 81 /min Radha Slarb ASSISTANT ART DIRECTOR [facility]; [facility] Work Phone: 03-28-2022 14:14-0500 Respiratory rate 17 /min Radha Slarb ASSISTANT ART DIRECTOR [facility]; [facility] Work Phone: 03-28-2022 14:14-0500 SaO2% (BldA) [Mass fraction] 97 % Radha Slarb ASSISTANT ART DIRECTOR [facility]; [facility] Work Phone: 03-28-2022 14:14-0500 Systolic blood pressure 172 mm[Hg] Radha Slarb ASSISTANT ART DIRECTOR [facility]; [facility] Work Phone: 12-14-2021 14:24-0400 Body height 162.56 cm Radha Slarb ASSISTANT ART DIRECTOR [facility]; [facility] Work Phone: 12-14-2021 14:24-0400 Body mass index (BMI) [Ratio] 32.78 kg/m2 Radha Slarb ASSISTANT ART DIRECTOR [facility]; [facility] Work Phone: 12-14-2021 14:24-0400 Body surface area Derived from formula 1.92 m2 Radha Slarb ASSISTANT ART DIRECTOR [facility]; [facility] Work Phone: 12-14-2021 14:24-0400 Body temperature 97.8 [degF] Radha Slarb ASSISTANT ART DIRECTOR [facility]; [facility] Work Phone: 12-14-2021 14:24-0400 Body weight 86.64 kg Radha Slarb ASSISTANT ART DIRECTOR [facility]; [facility] Work Phone: 12-14-2021 14:24-0400 Diastolic blood pressure 100 mm[Hg] Radha Slarb ASSISTANT ART DIRECTOR [facility]; [facility] Work Phone: 12-14-2021 14:24-0400 Heart rate 81 /min Radha Slarb ASSISTANT ART DIRECTOR [facility]; [facility] Work Phone: 12-14-2021 14:24-0400 Respiratory rate 16 /min Radha Slarb ASSISTANT ART DIRECTOR [facility]; [facility] Work Phone: 12-14-2021 14:24-0400 SaO2% (BldA) [Mass fraction] 98 % Radha Slarb ASSISTANT ART DIRECTOR [facility]; [facility] Work Phone: 12-14-2021 14:24-0400 Systolic blood pressure 172 mm[Hg] Radha Slarb ASSISTANT ART DIRECTOR [facility]; [facility] Work Phone: 07-22-2021 08:23-0400 Body height 160.02 cm [facility] Work Phone: 07-22-2021 08:23-0400 Body mass index (BMI) [Ratio] 32.5 kg/m2 [facility] Work Phone: 07-22-2021 08:23-0400 Body temperature 97.4 [degF] [facility] Work Phone: 07-22-2021 08:23-0400 Body weight 83.46 kg [facility] Work Phone: 07-22-2021 08:23-0400 Diastolic blood pressure 99 mm[Hg] [facility] Work Phone: 07-22-2021 08:23-0400 Heart rate 90 /min [facility] Work Phone: 07-22-2021 08:23-0400 Respiratory rate 14 /min [facility] Work Phone: 07-22-2021 08:23-0400 SaO2% (BldA) [Mass fraction] 100 % [facility] Work Phone: 07-22-2021 08:23-0400 Systolic blood pressure 194 mm[Hg] [facility] Work Phone: 04-06-2021 15:01-0500 Diastolic blood pressure 110 mm[Hg] RACHEL Bartlett LPN [facility] Work Phone: 04-06-2021 15:01-0500 Heart rate 80 /min RACHEL Bartlett LPN [facility]; [facility] Work Phone: 04-06-2021 15:01-0500 Systolic blood pressure 186 mm[Hg] RACHEL Bartlett LPN [facility]; [facility] Work Phone: 04-06-2021 15:01-0500 Diastolic blood pressure 110 mm[Hg] RACHEL Bartlett LPN [facility]; [facility] Work Phone: 04-06-2021 15:01-0500 Heart rate 82 /min RACHEL Bartlett LPN [facility]; [facility] Work Phone: 04-06-2021 15:01-0500 Systolic blood pressure 180 mm[Hg] RACHEL Bartlett LPN [facility]; [facility] Work Phone: 04-06-2021 15:00-0500 Body height 162.56 cm RACHEL Bartlett LPN [facility]; [facility] Work Phone: 04-06-2021 15:00-0500 Body mass index (BMI) [Ratio] 32.96 kg/m2 RACHEL Bartlett LPN [facility]; [facility] Work Phone: 04-06-2021 15:00-0500 Body surface area Derived from formula 1.92 m2 RACHEL Bartlett LPN [facility]; [facility] Work Phone: 04-06-2021 15:00-0500 Body temperature 97.9 [degF] RACHEL Bartlett LPN [facility]; [facility] Work Phone: 04-06-2021 15:00-0500 Body weight 87.09 kg RACHEL Bartlett FAVIAN [facility]; [facility] Work Phone: 04-06-2021 15:00-0500 Diastolic blood pressure 110 mm[Hg] RACHEL Bartlett LPN [facility]; [facility] Work Phone: 04-06-2021 15:00-0500 Heart rate 80 /min RACHEL Bartlett LPN [facility]; [facility] Work Phone: 04-06-2021 15:00-0500 Respiratory rate 18 /min RACHEL Dhruv BALLESTEROS [facility]; [facility] Work Phone: 04-06-2021 15:00-0500 SaO2% (BldA) [Mass fraction] 98 % RACHELBERNADETTE Bartlett LPN [facility]; [facility] Work Phone: 04-06-2021 15:00-0500 Systolic blood pressure 160 mm[Hg] RACHEL Bartlett LPN [facility]; [facility] Work Phone: 01-11-2021 14:37-0500 Body height 162.56 cm Yuki Fischer LPN [facility]; [facility] Work Phone: 01-11-2021 14:37-0500 Body mass index (BMI) [Ratio] 32.98 kg/m2 Yuki Fischer LPN [facility]; [facility] Work Phone: 01-11-2021 14:37-0500 Body surface area Derived from formula 1.92 m2 Yuki Fischer LPN [facility]; [facility] Work Phone: 01-11-2021 14:37-0500 Body weight 87.15 kg Yuki Fischer LPN [facility]; [facility] Work Phone: 01-11-2021 14:37-0500 Diastolic blood pressure 73 mm[Hg] Yuki Fischer LPN [facility]; [facility] Work Phone: 01-11-2021 14:37-0500 Systolic blood pressure 168 mm[Hg] Yuki Fischer LPN [facility]; [facility] Work Phone: 11-09-2020 13:43-0400 Body height 162.56 cm Yuki Amado FAVIAN [facility]; [facility] Work Phone: 11-09-2020 13:43-0400 Body mass index (BMI) [Ratio] 32.98 kg/m2 Yukirogers Nelsonthiago BALLESTEROS [facility]; [facility] Work Phone: 11-09-2020 13:43-0400 Body surface area Derived from formula 1.92 m2 Yukirogers Fischer FAVIAN [facility]; [facility] Work Phone: 11-09-2020 13:43-0400 Body temperature 97.9 [degF] Yuki Amado FAVIAN [facility]; [facility] Work Phone: 11-09-2020 13:43-0400 Body weight 87.15 kg Yuki Fischer LPN [facility]; [facility] Work Phone: 11-09-2020 13:43-0400 Diastolic blood pressure 90 mm[Hg] Yuki Amado FAVIAN [facility]; [facility] Work Phone: 11-09-2020 13:43-0400 Heart rate 87 /min Yuki Amado LPN [facility]; [facility] Work Phone: 11-09-2020 13:43-0400 Respiratory rate 16 /min Yuki Fischer LPN [facility]; [facility] Work Phone: 11-09-2020 13:43-0400 SaO2% (BldA) [Mass fraction] 97 % Yuki Amado LPN [facility]; [facility] Work Phone: 11-09-2020 13:43-0400 Systolic blood pressure 140 mm[Hg] Yuki Fischer LPN [facility]; [facility] Work Phone: 10-27-2020 15:20-0400 Body height 162.56 cm Yuki Fischer LPN [facility]; [facility] Work Phone: 10-27-2020 15:20-0400 Body mass index (BMI) [Ratio] 33.16 kg/m2 Yuki Amado ASSISTANT ART DIRECTOR [facility]; [facility] Work Phone: 10-27-2020 15:20-0400 Body surface area Derived from formula 1.93 m2 Yuki Amado ASSISTANT ART DIRECTOR [facility]; [facility] Work Phone: 10-27-2020 15:20-0400 Body weight 87.64 kg Yuki Amado ASSISTANT ART DIRECTOR [facility]; [facility] Work Phone: 10-27-2020 15:20-0400 Diastolic blood pressure 81 mm[Hg] Yuki Amado ASSISTANT ART DIRECTOR [facility]; [facility] Work Phone: 10-27-2020 15:20-0400 Systolic blood pressure 173 mm[Hg] Yuki Amado ASSISTANT ART DIRECTOR [facility]; [facility] Work Phone: 10-20-2020 09:14-0400 Body height 162.56 cm Radha Slarb ASSISTANT ART DIRECTOR [facility]; [facility] Work Phone: 10-20-2020 09:14-0400 Body mass index (BMI) [Ratio] 33.16 kg/m2 Radha Slarb ASSISTANT ART DIRECTOR [facility]; [facility] Work Phone: 10-20-2020 09:14-0400 Body surface area Derived from formula 1.93 m2 Radha Slarb ASSISTANT ART DIRECTOR [facility]; [facility] Work Phone: 10-20-2020 09:14-0400 Body temperature 97.1 [degF] Radha Slarb ASSISTANT ART DIRECTOR [facility]; [facility] Work Phone: 10-20-2020 09:14-0400 Body weight 87.64 kg Radha Slarb ASSISTANT ART DIRECTOR [facility]; [facility] Work Phone: 10-20-2020 09:14-0400 Diastolic blood pressure 98 mm[Hg] Radha Slarb ASSISTANT ART DIRECTOR [facility]; [facility] Work Phone: 10-20-2020 09:14-0400 Heart rate 92 /min Radha Dumont ASSISTANT ART DIRECTOR [facility]; [facility] Work Phone: 10-20-2020 09:14-0400 Respiratory rate 16 /min Radha Tim ASSISTANT ART DIRECTOR [facility]; [facility] Work Phone: 10-20-2020 09:14-0400 SaO2% (BldA) [Mass fraction] 99 % Radha Dumont ASSISTANT ART DIRECTOR [facility]; [facility] Work Phone: 10-20-2020 09:14-0400 Systolic blood pressure 172 mm[Hg] Radha Dumont [facility]; [facility] Work Phone: 03-13-2020 11:14-0500 BMI (Body Mass Index) 33.16 kg/m2 Nick Kumar LPN [facility]; [facility] Work Phone: 03-13-2020 11:14-0500 Body weight 87.64 kg Nick Kumar ASSISTANT ART DIRECTOR [facility]; [facility] Work Phone: 03-13-2020 11:14-0500 BSA (Body Surface Area) 1.93 m2 Nick Kumar LPN [facility]; [facility] Work Phone: 03-13-2020 11:14-0500 Height 162.56 cm Nick Kumar ASSISTANT ART DIRECTOR [facility]; [facility] Work Phone: 09-25-2019 14:03-0400 BMI (Body Mass Index) 33.16 kg/m2 Leatha Morrison CNP Work Phone: [facility] Work Phone: 09-25-2019 14:03-0400 Body Temperature 97.2 [degF] Leatha Morrison [employer] Work Phone: [facility] Work Phone: 09-25-2019 14:03-0400 Body weight 87.64 kg Leatha Morrison [employer] Work Phone: [facility] Work Phone: 09-25-2019 14:03-0400 BP Diastolic 86 mm[Hg] Leatha Morrison [employer] Work Phone: [facility] Work Phone: Comment on above: Patient Position: Supine; Cuff Location: Right Arm; Cuff Size: Standard 09-25-2019 14:03-0400 BP Systolic 150 mm[Hg] Leatha Morrison [employer] Work Phone: [facility] Work Phone: Comment on above: Patient Position: Supine; Cuff Location: Right Arm; Cuff Size: Standard 09-25-2019 14:03-0400 BSA (Body Surface Area) 1.93 m2 Leatha Morrison [employer] Work Phone: [facility] Work Phone: 09-25-2019 14:03-0400 Height 162.56 cm Leatha Morrison [employer] Work Phone: [facility] Work Phone: 09-25-2019 14:03-0400 Pulse Oximetry 95 % Leatha Morrison [facility] Work Phone: Comment on above: Room air 09-25-2019 14:03-0400 SaO2% (BldA) [Mass fraction] 95 % Leatha Morrison [employer] Work Phone: [facility]; [facility] Work Phone: 08-13-2019 14:53-0400 BMI (Body Mass Index) 33.64 kg/m2 Nick Kumar LPN [facility] Work Phone: 08-13-2019 14:53-0400 Body Temperature 97.7 [degF] Nick Kumar LPN [facility] Work Phone: Comment on above: Method: Temporal 08-13-2019 14:53-0400 Body weight 88.91 kg Nick Kumar LPN [facility] Work Phone: 08-13-2019 14:53-0400 BP Diastolic 100 mm[Hg] Nick Kumar LPN [facility] Work Phone: Comment on above: Patient Position: Sitting; Cuff Location : Left Arm; Cuff Size: Standard 08-13-2019 14:53-0400 BP Systolic 170 mm[Hg] Nick Kumar LPN [facility] Work Phone: Comment on above: Patient Position: Sitting; Cuff Location : Left Arm; Cuff Size: Standard 08-13-2019 14:53-0400 BSA (Body Surface Area) 1.94 m2 Nick Kumar LPN [facility] Work Phone: 08-13-2019 14:53-0400 Height 162.56 cm Nick Kumar LPN [facility] Work Phone: 08-13-2019 14:53-0400 Pulse (Heart Rate) 97 /min Nick Kumar LPN [facility] Work Phone: Comment on above: Pattern: Regular 08-13-2019 14:53-0400 Pulse Oximetry 95 % Leatha Morrison [facility] Work Phone: Comment on above: Room air 08-13-2019 14:53-0400 Respiratory Rate 16 /min Nick Kumar LPN [facility] Work Phone: Comment on above: Pattern: Unlabored 08-13-2019 14:53-0400 SaO2% (BldA) [Mass fraction] 95 % Nick Kumar LPN [facility]; [facility] Work Phone: 11-05-2018 08:32-0400 BMI (Body Mass Index) 33.64 kg/m2 Leatha Tamiko [facility] Work Phone: 11-05-2018 08:32-0400 BMI (Body Mass Index) 33.47 kg/m2 Nick Kumar LPN [facility] Work Phone: 11-05-2018 08:32-0400 Body Temperature 98.7 [degF] Nick Kumar LPN [facility] Work Phone: Comment on above: Method: Temporal 11-05-2018 08:32-0400 Body weight 88.91 kg Leatha Tamiko [facility] Work Phone: 11-05-2018 08:32-0400 Body weight 88.46 kg Nick José ASSISTANT ART DIRECTOR [facility] Work Phone: 11-05-2018 08:32-0400 BP Diastolic 82 mm[Hg] Nick Kumar [facility] Work Phone: Comment on above: Patient Position: Sitting; Cuff Location : Left Arm; Cuff Size: Standard 11-05-2018 08:32-0400 BP Systolic 124 mm[Hg] Nick José [facility] Work Phone: Comment on above: Patient Position: Sitting; Cuff Location : Left Arm; Cuff Size: Standard 11-05-2018 08:32-0400 BSA (Body Surface Area) 1.94 m2 Nick Kumar [facility] Work Phone: 11-05-2018 08:32-0400 Height 162.56 cm Nick Kumar [facility] Work Phone: 11-05-2018 08:32-0400 Pulse (Heart Rate) 84 /min Nick Kumar ASSISTANT ART DIRECTOR [facility] Work Phone: Comment on above: Pattern: Regular 11-05-2018 08:32-0400 Pulse Oximetry 96 % Leatha Juanchoalise [facility] Work Phone: Comment on above: Room air 11-05-2018 08:32-0400 Respiratory Rate 16 /min Nick José [facility] Work Phone: Comment on above: Pattern: Unlabored 11-05-2018 08:32-0400 SaO2% (BldA) [Mass fraction] 96 % Nick Kumar [facility]; [facility] Work Phone: 10-25-2018 10:31-0400 BMI (Body Mass Index) 33.64 kg/m2 Briana Fitzgerald [facility] Work Phone: 10-25-2018 10:31-0400 Body Temperature 97.7 [degF] Briana Fitzgerald [facility] Work Phone: Comment on above: Method: Temporal 10-25-2018 10:31-0400 Body weight 88.91 kg Briana Fitzgerald [facility] Work Phone: 10-25-2018 10:31-0400 BP Diastolic 92 mm[Hg] Briana Fitzgerald [facility] Work Phone: Comment on above: Patient Position: Sitting; Cuff Location : Left Arm; Cuff Size: Standard 10-25-2018 10:31-0400 BP Systolic 146 mm[Hg] Briana Fitzgerald [facility] Work Phone: Comment on above: Patient Position: Sitting; Cuff Location : Left Arm; Cuff Size: Standard 10-25-2018 10:31-0400 BSA (Body Surface Area) 1.[address] [facility] Work Phone: 10-25-2018 10:31-0400 Height 162.56 cm Briana Fitzgerald [facility] Work Phone: 10-25-2018 10:31-0400 Pulse (Heart Rate) 64 /min Briana Fitzgerald [facility] Work Phone: Comment on above: Pattern: Regular 10-25-2018 10:31-0400 Pulse Oximetry 100 % Leatha Morrison [facility] Work Phone: Comment on above: Room air 10-25-2018 10:31-0400 Respiratory Rate 18 /min Briana Fitzgerald [facility] Work Phone: Comment on above: Pattern: Unlabored 10-25-2018 10:31-0400 SaO2% (BldA) [Mass fraction] 100 % Briana Fitzgerald [facility]; [facility] Work Phone: 06-19-2018 08:42-0400 BMI (Body Mass Index) 33.64 kg/m2 Nick Kumar LPN [facility] Work Phone: 06-19-2018 08:42-0400 Body Temperature 97.1 [degF] Nick Kumar LPN [facility] Work Phone: Comment on above: Method: Temporal 06-19-2018 08:42-0400 Body weight 88.91 kg Nick Kumar LPN [facility] Work Phone: 06-19-2018 08:42-0400 BP Diastolic 74 mm[Hg] Nick Kumar LPN [facility] Work Phone: Comment on above: Patient Position: Sitting; Cuff Location : Left Arm; Cuff Size: Standard 06-19-2018 08:42-0400 BP Systolic 140 mm[Hg] Nick Kumar FAVIAN [facility] Work Phone: Comment on above: Patient Position: Sitting; Cuff Location : Left Arm; Cuff Size: Standard 06-19-2018 08:42-0400 BSA (Body Surface Area) 1.94 m2 Nick Kumar FAVIAN [facility] Work Phone: 06-19-2018 08:42-0400 Height 162.56 cm Nick José BALLESTEROS [facility] Work Phone: 06-19-2018 08:42-0400 Pulse (Heart Rate) 79 /min Nick Kumar FAVIAN [facility] Work Phone: Comment on above: Pattern: Regular 06-19-2018 08:42-0400 Pulse Oximetry 97 % Leatha Doshiabram [facility] Work Phone: Comment on above: Room air 06-19-2018 08:42-0400 Respiratory Rate 16 /min Nick Kumar ASSISTANT ART DIRECTOR [facility] Work Phone: Comment on above: Pattern: Unlabored 06-19-2018 08:42-0400 SaO2% (BldA) [Mass fraction] 97 % Nick Kumar FAVIAN [facility]; [facility] Work Phone: 06-19-2018 08:42-0400 Weight 88.91 kg Leatha Morrison [facility] Work Phone: 11-15-2017 14:03-0400 BMI (Body Mass Index) 33.64 kg/m2 Crystal Madina [facility] Work Phone: 11-15-2017 14:03-0400 Body Temperature 97.6 [degF] Crystal Painter [facility] Work Phone: Comment on above: Method: Temporal 11-15-2017 14:03-0400 Body weight 88.91 kg Crystal Painter [facility] Work Phone: 11-15-2017 14:03-0400 BP Diastolic 92 mm[Hg] Crystal Painter [facility] Work Phone: Comment on above: Patient Position: Sitting; Cuff Location : Left Arm; Cuff Size: Standard 11-15-2017 14:03-0400 BP Systolic 130 mm[Hg] Crystal Painter [facility] Work Phone: Comment on above: Patient Position: Sitting; Cuff Location : Left Arm; Cuff Size: Standard 11-15-2017 14:03-0400 BSA (Body Surface Area) 1.94 m2 Crystal Painter [facility] Work Phone: 11-15-2017 14:03-0400 Height 162.56 cm Crystal Painter [facility] Work Phone: 11-15-2017 14:03-0400 Pulse (Heart Rate) 74 /min Crystal Painter [facility] Work Phone: Comment on above: Pattern: Regular 11-15-2017 14:03-0400 Pulse Oximetry 95 % Leatha Morrison [facility] Work Phone: Comment on above: Room air 11-15-2017 14:03-0400 Respiratory Rate 17 /min Crystal Painter [facility] Work Phone: Comment on above: Pattern: Unlabored 11-15-2017 14:03-0400 SaO2% (BldA) [Mass fraction] 95 % Crystal Painter [facility]; [facility] Work Phone: 11-15-2017 14:03-0400 Weight 88.91 kg Leatha Morrison [facility] Work Phone: 12-19-2016 13:21-0400 Body height 165.1 cm Seblelissa [facility] Work Phone: 12-19-2016 13:21-0400 Body mass index (BMI) [Ratio] 32.38 kg/m2 [facility] Work Phone: 12-19-2016 13:21-0400 Body weight 88.27 kg [facility] Work Phone: 12-19-2016 13:21-0400 Diastolic blood pressure 90 mm[Hg] [facility] Work Phone: 12-19-2016 13:21-0400 Heart rate 76 /min [facility] Work Phone: 12-19-2016 13:21-0400 Systolic blood pressure 144 mm[Hg] [facility] Work Phone: 11-15-2016 13:18-0400 BMI (Body Mass Index) 33.3 kg/m2 Radha Slarb ASSISTANT ART DIRECTOR [facility] Work Phone: 11-15-2016 13:18-0400 Body Temperature 97.1 [degF] Radha Slarb ASSISTANT ART DIRECTOR [facility] Work Phone: 11-15-2016 13:18-0400 Body weight 88 kg Radha Slarb ASSISTANT ART DIRECTOR [facility] Work Phone: 11-15-2016 13:18-0400 BP Diastolic 88 mm[Hg] Radha Slarb ASSISTANT ART DIRECTOR [facility] Work Phone: Comment on above: Patient Position: Sitting; Cuff Location : Left Arm; Cuff Size: Standard 11-15-2016 13:18-0400 BP Systolic 138 mm[Hg] Radha Slarb ASSISTANT ART DIRECTOR [facility] Work Phone: Comment on above: Patient Position: Sitting; Cuff Location : Left Arm; Cuff Size: Standard 11-15-2016 13:18-0400 BSA (Body Surface Area) 1.93 m2 Radha Slarb ASSISTANT ART DIRECTOR [facility] Work Phone: 11-15-2016 13:18-0400 Height 162.56 cm Radha Slarb ASSISTANT ART DIRECTOR [facility] Work Phone: 11-15-2016 13:18-0400 Pulse (Heart Rate) 75 /min Radha Slarb ASSISTANT ART DIRECTOR [facility] Work Phone: Comment on above: Pattern: Regular 11-15-2016 13:18-0400 Pulse Oximetry 97 % Leatha Morrison [facility] Work Phone: Comment on above: Room air 11-15-2016 13:18-0400 Respiratory Rate 16 /min Radha Slarb ASSISTANT ART DIRECTOR [facility] Work Phone: Comment on above: Pattern: Unlabored 11-15-2016 13:18-0400 SaO2% (BldA) [Mass fraction] 97 % Radha Slarb ASSISTANT ART DIRECTOR [facility]; [facility] Work Phone: 11-15-2016 13:18-0400 Weight 88 kg Leatha Morrison [facility] Work Phone: 11-16-2015 08:53-0400 BMI (Body Mass Index) 33.13 kg/m2 Radha Slarb ASSISTANT ART DIRECTOR [facility] Work Phone: 11-16-2015 08:53-0400 Body Temperature 97 [degF] Radha Slarb ASSISTANT ART DIRECTOR [facility] Work Phone: 11-16-2015 08:53-0400 Body weight 87.54 kg Radha Slarb ASSISTANT ART DIRECTOR [facility] Work Phone: 11-16-2015 08:53-0400 BP Diastolic 84 mm[Hg] Radha Slarb ASSISTANT ART DIRECTOR [facility] Work Phone: Comment on above: Patient Position: Sitting; Cuff Location : Left Arm; Cuff Size: Standard 11-16-2015 08:53-0400 BP Systolic 134 mm[Hg] Radha Slarb ASSISTANT ART DIRECTOR [facility] Work Phone: Comment on above: Patient Position: Sitting; Cuff Location : Left Arm; Cuff Size: Standard 11-16-2015 08:53-0400 BSA (Body Surface Area) 1.93 m2 Radha Slarb ASSISTANT ART DIRECTOR [facility] Work Phone: 11-16-2015 08:53-0400 Height 162.56 cm Radha Slarb ASSISTANT ART DIRECTOR [facility] Work Phone: 11-16-2015 08:53-0400 Pulse (Heart Rate) 75 /min Radha Slarb ASSISTANT ART DIRECTOR [facility] Work Phone: Comment on above: Pattern: Regular 11-16-2015 08:53-0400 Pulse Oximetry 95 % Leatha Morrison [facility] Work Phone: Comment on above: Room air 11-16-2015 08:53-0400 Respiratory Rate 17 /min Radha Dumont LPN [facility] Work Phone: Comment on above: Pattern: Unlabored 11-16-2015 08:53-0400 SaO2% (BldA) [Mass fraction] 95 % Radha Dumont LPN [facility]; [facility] Work Phone: 11-16-2015 08:53-0400 Weight 87.54 kg Leatha Morrison [facility] Work Phone: 09-04-2015 13:53-0400 BMI (Body Mass Index) 34.35 kg/m2 Mer Solorio RN [facility] Work Phone: 09-04-2015 13:53-0400 Body weight 90.78 kg Mer Solorio RN [facility] Work Phone: 09-04-2015 13:53-0400 BP Diastolic 78 mm[Hg] Mer Solorio RN [facility] Work Phone: Comment on above: Patient Position: Sitting; Cuff Location : Left Arm; Cuff Size: Standard 09-04-2015 13:53-0400 BP Systolic 134 mm[Hg] Mer Solorio RN [facility] Work Phone: Comment on above: Patient Position: Sitting; Cuff Location : Left Arm; Cuff Size: Standard 09-04-2015 13:53-0400 BSA (Body Surface Area) 1.96 m2 Mer Solorio RN [facility] Work Phone: 09-04-2015 13:53-0400 Height 162.56 cm Mer Solorio RN [facility] Work Phone: 09-04-2015 13:53-0400 Pulse (Heart Rate) 83 /min Mer Solorio RN [facility] Work Phone: Comment on above: Pattern: Regular 09-04-2015 13:53-0400 Pulse Oximetry 98 % Leatha Morrison [facility] Work Phone: Comment on above: Room air 09-04-2015 13:53-0400 Respiratory Rate 16 /min Mer Solorio RN [facility] Work Phone: Comment on above: Pattern: Unlabored 09-04-2015 13:53-0400 SaO2% (BldA) [Mass fraction] 98 % Mer Solorio RN [facility]; [facility] Work Phone: 09-04-2015 13:53-0400 Weight 90.78 kg Leatha Morrison [facility] Internal Medicine Work Phone: 02-23-2015 08:34-0500 BMI (Body Mass Index) 33.84 kg/m2 Radha Stevenrb ASSISTANT ART DIRECTOR [facility] Work Phone: 02-23-2015 08:34-0500 Body Temperature 97.1 [degF] Radha Stevenrb ASSISTANT ART DIRECTOR [facility] Work Phone: 02-23-2015 08:34-0500 Body weight 89.42 kg Radha Stevenrb ASSISTANT ART DIRECTOR [facility] Work Phone: 02-23-2015 08:34-0500 BP Diastolic 86 mm[Hg] Radha Slarb ASSISTANT ART DIRECTOR [facility] Work Phone: Comment on above: Patient Position: Sitting; Cuff Location : Left Arm; Cuff Size: Standard 02-23-2015 08:34-0500 BP Systolic 138 mm[Hg] Radha Stevenrb ASSISTANT ART DIRECTOR [facility] Work Phone: Comment on above: Patient Position: Sitting; Cuff Location : Left Arm; Cuff Size: Standard 02-23-2015 08:34-0500 BSA (Body Surface Area) 1.94 m2 Radha Slarb ASSISTANT ART DIRECTOR [facility] Work Phone: 02-23-2015 08:34-0500 Height 162.56 cm Radha Slarb ASSISTANT ART DIRECTOR [facility] Work Phone: 02-23-2015 08:34-0500 Pulse (Heart Rate) 104 /min Radha Stevenrb ASSISTANT ART DIRECTOR [facility]prehens[facility] Internal Medicine Work Phone: Comment on above: Pattern: Regular 02-23-2015 08:34-0500 Pulse Oximetry 97 % Leatha Morrison [facility] Internal Medicine Work Phone: Comment on above: Room air 02-23-2015 08:34-0500 Respiratory Rate 18 /min Radha Dumont ASSISTANT ART DIRECTOR [facility] Work Phone: Comment on above: Pattern: Unlabored 02-23-2015 08:34-0500 SaO2% (BldA) [Mass fraction] 97 % Radha Slarb ASSISTANT ART DIRECTOR [facility] Internal Medicine; [facility] Work Phone: 02-23-2015 08:34-0500 Weight 89.42 kg Leatha Morrison [facility] Internal Medicine Work Phone: 01-13-2015 13:52-0500 BMI (Body Mass Index) 34.07 kg/m2 Radha Slarb ASSISTANT ART DIRECTOR [facility] Internal Medicine Work Phone: 01-13-2015 13:52-0500 Body Temperature 97.8 [degF] Radha Slarb ASSISTANT ART DIRECTOR [facility] Internal Medicine Work Phone: 01-13-2015 13:52-0500 Body weight 90.04 kg Radha Stevenrb ASSISTANT ART DIRECTOR [facility] Internal Medicine Work Phone: 01-13-2015 13:52-0500 BP Diastolic 94 mm[Hg] Radha Slarb ASSISTANT ART DIRECTOR [facility] Work Phone: Comment on above: Patient Position: Sitting; Cuff Location : Left Arm; Cuff Size: Standard 01-13-2015 13:52-0500 BP Systolic 152 mm[Hg] Radha Slarb ASSISTANT ART DIRECTOR [facility] Internal Medicine Work Phone: Comment on above: Patient Position: Sitting; Cuff Location : Left Arm; Cuff Size: Standard 01-13-2015 13:52-0500 BSA (Body Surface Area) 1.95 m2 Radha Slarb ASSISTANT ART DIRECTOR [facility] Work Phone: 01-13-2015 13:52-0500 Height 162.56 cm Radha Slarb ASSISTANT ART DIRECTOR [facility] Work Phone: 01-13-2015 13:52-0500 Pulse (Heart Rate) 81 /min Radha Dumont FAVIAN [facility] Medicine Work Phone: Comment on above: Pattern: Regular 01-13-2015 13:52-0500 Pulse Oximetry 97 % Leatha Morrison [facility] Internal Medicine Work Phone: Comment on above: Room air 01-13-2015 13:52-0500 Respiratory Rate 18 /min Radha Harrisbacilio BALLESTEROS [facility] Work Phone: Comment on above: Pattern: Unlabored 01-13-2015 13:52-0500 SaO2% (BldA) [Mass fraction] 97 % Radha Tim BALLESTEROS [facility]; [facility] Work Phone: 01-13-2015 13:52-0500 Weight 90.04 kg Leatha Morrison [facility] Internal Medicine Work Phone: 11-18-2014 14:45-0400 BMI (Body Mass Index) 34.07 kg/m2 [facility] Work Phone: 11-18-2014 14:45-0400 Body Temperature 98.1 [degF] Isis Phoenix [facility] Internal Medicine Work Phone: Comment on above: Method: Oral 11-18-2014 14:45-0400 Body weight 90.04 kg Isis Phoenix [facility] Internal Medicine Work Phone: 11-18-2014 14:45-0400 BP Diastolic 74 mm[Hg] Isis Phoenix [facility] Internal Medicine Work Phone: Comment on above: Patient Position: Sitting; Cuff Location : Left Arm; Cuff Size: Standard 11-18-2014 14:45-0400 BP Systolic 122 mm[Hg] Isis Phoenix [facility] Internal Medicine Work Phone: Comment on above: Patient Position: Sitting; Cuff Location : Left Arm; Cuff Size: Standard 11-18-2014 14:45-0400 BSA (Body Surface Area) 1.95 m2 Isis Phoenix [facility] Internal Medicine Work Phone: 11-18-2014 14:45-0400 Height 162.56 cm Isis Phoenix [facility] Internal Medicine Work Phone: 11-18-2014 14:45-0400 Pulse (Heart Rate) 59 /min Isis Phoenix [facility] Internal Medicine Work Phone: Comment on above: Pattern: Regular 11-18-2014 14:45-0400 Pulse Oximetry 94 % Leatha Morrison [facility] Internal Medicine Work Phone: Comment on above: Room air 11-18-2014 14:45-0400 Respiratory Rate 18 /min Isis Phoenix [facility] Internal Medicine Work Phone: Comment on above: Pattern: Unlabored 11-18-2014 14:45-0400 SaO2% (BldA) [Mass fraction] 94 % Isis Phoenix [facility]; [facility] Work Phone: 11-18-2014 14:45-0400 Weight 90.04 kg Leatha Morrison [facility] Internal Medicine Work Phone: 11-05-2014 14:59-0400 Body surface area Derived from formula 1.98 m2 [facility] Work Phone: 11-05-2014 14:59-0400 Respiratory rate 14 /min Seblelissa Gabrielle [facility] Work Phone: 10-14-2014 11:48-0400 BMI (Body Mass Index) 34.01 kg/m2 Violetta Virgen [facility] Work Phone: 10-14-2014 11:48-0400 Body Temperature 97.7 [degF] Violetta Virgen [facility] Work Phone: Comment on above: Method: Oral 10-14-2014 11:48-0400 Body weight 89.87 kg Violetta Virgen [facility] Internal Medicine Work Phone: 10-14-2014 11:48-0400 BP Diastolic 92 mm[Hg] Violetta Virgen [facility] Work Phone: Comment on above: Patient Position: Sitting; Cuff Location : Left Arm; Cuff Size: Standard 10-14-2014 11:48-0400 BP Systolic 162 mm[Hg] Violetta Virgen [facility] Internal Medicine Work Phone: Comment on above: Patient Position: Sitting; Cuff Location : Left Arm; Cuff Size: Standard 10-14-2014 11:48-0400 BSA (Body Surface Area) 1.95 m2 Violetta Virgen [facility] Internal Medicine Work Phone: 10-14-2014 11:48-0400 Height 162.56 cm Violetta Virgen [facility] Internal Medicine Work Phone: 10-14-2014 11:48-0400 Pulse (Heart Rate) 82 /min Violetta Virgen [facility] Internal Medicine Work Phone: Comment on above: Pattern: Regular 10-14-2014 11:48-0400 Pulse Oximetry 96 % Leatha Morrison [facility] Internal Medicine Work Phone: Comment on above: Room air 10-14-2014 11:48-0400 Respiratory Rate 16 /min Violetta Virgen [facility] Internal Medicine Work Phone: Comment on above: Pattern: Unlabored 10-14-2014 11:48-0400 SaO2% (BldA) [Mass fraction] 96 % Violetta Virgen [facility]; [facility] Work Phone: 10-14-2014 11:48-0400 Weight 89.87 kg Leatha Morrison [facility] Internal Medicine Work Phone: 08-19-2014 09:44-0400 BMI (Body Mass Index) 34.01 kg/m2 Isis Phoenix [facility] Internal Medicine Work Phone: 08-19-2014 09:44-0400 Body Temperature 97.7 [degF] Isis Phoenix [facility] Internal Medicine Work Phone: Comment on above: Method: Tympanic 08-19-2014 09:44-0400 Body weight 89.87 kg Isis Phoenix [facility] Internal Medicine Work Phone: 08-19-2014 09:44-0400 BP Diastolic 84 mm[Hg] Isis Phoenix [facility] Work Phone: Comment on above: Patient Position: Sitting; Cuff Location : Left Arm; Cuff Size: Standard 08-19-2014 09:44-0400 BP Systolic 146 mm[Hg] Isis Phoenix [facility] Internal Medicine Work Phone: Comment on above: Patient Position: Sitting; Cuff Location : Left Arm; Cuff Size: Standard 08-19-2014 09:44-0400 BSA (Body Surface Area) 1.95 m2 Isis Phoenix [facility] Internal Medicine Work Phone: 08-19-2014 09:44-0400 Height 162.56 cm Isis Phoenix [facility] Internal Medicine Work Phone: 08-19-2014 09:44-0400 Pulse (Heart Rate) 84 /min Isis Phoenix [facility] Internal Medicine Work Phone: Comment on above: Pattern: Regular 08-19-2014 09:44-0400 Pulse Oximetry 98 % Leatha Morrison [facility] Internal Medicine Work Phone: Comment on above: Room air 08-19-2014 09:44-0400 Respiratory Rate 18 /min Isis Phoenix [facility] Internal Medicine Work Phone: Comment on above: Pattern: Unlabored 08-19-2014 09:44-0400 SaO2% (BldA) [Mass fraction] 98 % Isis Phoenix [facility]; [facility] Work Phone: 08-19-2014 09:44-0400 Weight 89.87 kg Leatha Morrison [facility] Internal Medicine Work Phone: 04-01-2014 14:06-0500 BMI (Body Mass Index) 31.85 kg/m2 Julianne Andrzej BALLESTEROS [facility] Work Phone: 04-01-2014 14:06-0500 Body Temperature 98.2 [degF] Julianne Donnelly LPN [facility] Work Phone: Comment on above: Method: Oral 04-01-2014 14:06-0500 Body weight 84.17 kg Julianne Andrzej BALLESTEROS [facility] Work Phone: 04-01-2014 14:06-0500 BP Diastolic 88 mm[Hg] Julianne Donnelly LPN [facility] Work Phone: Comment on above: Patient Position: Sitting; Cuff Location : Left Arm; Cuff Size: Standard 04-01-2014 14:06-0500 BP Systolic 138 mm[Hg] Julianne Donnelly LPN [facility] Work Phone: Comment on above: Patient Position: Sitting; Cuff Location : Left Arm; Cuff Size: Standard 04-01-2014 14:06-0500 BSA (Body Surface Area) 1.89 m2 Julianne Donnelly LPN [facility] Work Phone: 04-01-2014 14:06-0500 Height 162.56 cm Julianne Donnlely FAVIAN [facility] Work Phone: 04-01-2014 14:06-0500 Pulse (Heart Rate) 88 /min Julianne Donnelly LPN [facility] Work Phone: Comment on above: Pattern: Regular 04-01-2014 14:06-0500 Pulse Oximetry 98 % Leatha Doshiabram [facility] Work Phone: Comment on above: Room air 04-01-2014 14:06-0500 SaO2% (BldA) [Mass fraction] 98 % Julianne Donnelly LPN [facility]; [facility] Work Phone: 04-01-2014 14:06-0500 Weight 84.17 kg Leatha Dawkinsalise [facility] Work Phone: 11-12-2013 09:16-0400 BMI (Body Mass Index) 31.85 kg/m2 Bonnie Moise RN [facility] Work Phone: 11-12-2013 09:16-0400 Body weight 84.17 kg Bonnie Moise RN [facility] Work Phone: 11-12-2013 09:16-0400 BP Diastolic 88 mm[Hg] Bonnie Moise RN [facility] Work Phone: Comment on above: Patient Position: Sitting; Cuff Location : Left Arm; Cuff Size: Standard 11-12-2013 09:16-0400 BP Systolic 160 mm[Hg] Bonnie Moise RN [facility] Work Phone: Comment on above: Patient Position: Sitting; Cuff Location : Left Arm; Cuff Size: Standard 11-12-2013 09:16-0400 BSA (Body Surface Area) 1.89 m2 Bonnie Moise RN [facility] Work Phone: 11-12-2013 09:16-0400 Height 162.56 cm Bonnie Moise RN [facility] Work Phone: 11-12-2013 09:16-0400 Pulse (Heart Rate) 61 /min Bonnie Moise RN [facility] Work Phone: Comment on above: Pattern: Regular 11-12-2013 09:16-0400 Pulse Oximetry 98 % Leatha Morrison [facility] Work Phone: Comment on above: Room air 11-12-2013 09:16-0400 Respiratory Rate 20 /min Bonnie Moise RN [facility] Work Phone: Comment on above: Pattern: Unlabored 11-12-2013 09:16-0400 SaO2% (BldA) [Mass fraction] 98 % Bonnie Moise RN [facility]; [facility] Work Phone: 11-12-2013 09:16-0400 Weight 84.17 kg Leatha Morrison [facility] Work Phone: 08-26-2013 08:49-0400 BMI (Body Mass Index) 30.72 kg/m2 Melissa Arnett MD Work Phone: [facility] Work Phone: Comment on above: alot stress with going back to work. 08-26-2013 08:49-0400 Body Temperature 98.6 [degF] Melissa Arnett MD Work Phone: [facility] Work Phone: Comment on above: Method: Oral alot stress with goi ng back to work. 08-26-2013 08:49-0400 Body weight 81.19 kg Melissa Arnett MD Work Phone: [facility] Work Phone: Comment on above: alot stress with going back to work. 08-26-2013 08:49-0400 BP Diastolic 98 mm[Hg] Melissa Arnett MD Work Phone: [facility] Work Phone: Comment on above: Patient Position: Sitting; Cuff Location : Left Arm; Cuff Size: Standard alot stress with goi ng back to work. 08-26-2013 08:49-0400 BP Systolic 150 mm[Hg] Melissa Arnett MD Work Phone: [facility] Work Phone: Comment on above: Patient Position: Sitting; Cuff Location : Left Arm; Cuff Size: Standard alot stress with goi ng back to work. 08-26-2013 08:49-0400 BSA (Body Surface Area) 1.87 m2 Melissa Arnett MD Work Phone: [facility] Work Phone: Comment on above: alot stress with going back to work. 08-26-2013 08:49-0400 Height 162.56 cm Melissa Arnett MD Work Phone: [facility] Work Phone: Comment on above: alot stress with going back to work. 08-26-2013 08:49-0400 Pulse (Heart Rate) 74 /min Melissa Arnett MD Work Phone: [facility] Work Phone: Comment on above: Pattern: Regular alot stress with goi ng back to work. 08-26-2013 08:49-0400 Respiratory Rate 20 /min Melissa Arnett MD Work Phone: [facility] Work Phone: Comment on above: Pattern: Unlabored alot stress with goi ng back to work. 08-26-2013 08:49-0400 Weight 81.19 kg Leatha Morrison [facility] Work Phone: Comment on above: alot stress with going back to work. 07-08-2013 14:59-0400 Body temperature 97.8 [degF] Tori [facility] Work Phone: 05-13-2013 14:34-0400 BMI (Body Mass Index) 30.55 kg/m2 RACHEL Bartlett [facility] Internal Medicine Work Phone: 05-13-2013 14:34-0400 Body Temperature 98.4 [degF] RACHEL Bartlett [facility] Work Phone: Comment on above: Method: Oral 05-13-2013 14:34-0400 Body weight 80.74 kg RACHEL Bartlett [facility] Internal Medicine Work Phone: 05-13-2013 14:34-0400 BP Diastolic 78 mm[Hg] RACHEL Bartlett [facility] Medicine Work Phone: Comment on above: Patient Position: Sitting; Cuff Location : Left Arm; Cuff Size: Standard 05-13-2013 14:34-0400 BP Systolic 124 mm[Hg] RACHEL Bartlett [facility] Internal Medicine Work Phone: Comment on above: Patient Position: Sitting; Cuff Location : Left Arm; Cuff Size: Standard 05-13-2013 14:34-0400 BSA (Body Surface Area) 1.86 m2 RACHEL Bartlett ASSISTANT ART DIRECTOR [facility] Internal Medicine Work Phone: 05-13-2013 14:34-0400 Height 162.56 cm RACHEL Bartlett [facility] Medicine Work Phone: 05-13-2013 14:34-0400 Pulse (Heart Rate) 74 /min RACHEL Bartlett [facility] Medicine Work Phone: Comment on above: Pattern: Regular 05-13-2013 14:34-0400 Respiratory Rate 20 /min RACHEL Bartlett [facility] Internal Medicine Work Phone: Comment on above: Pattern: Unlabored 05-13-2013 14:34-0400 Weight 80.74 kg Leatha Morrison [facility] Internal Medicine Work Phone: 03-11-2013 14:29-0500 BMI (Body Mass Index) 30.55 kg/m2 RACHEL Bartlett ASSISTANT ART DIRECTOR [facility] Work Phone: 03-11-2013 14:29-0500 Body Temperature 97.9 [degF] RACHEL Bartlett LPN [facility] Internal Medicine Work Phone: Comment on above: Method: Oral 03-11-2013 14:29-0500 Body weight 80.74 kg RACHEL Bartlett LPN [facility] Internal Medicine Work Phone: 03-11-2013 14:29-0500 BP Diastolic 80 mm[Hg] RACHEL Bartlett LPN [facility] Work Phone: Comment on above: Patient Position: Sitting; Cuff Location : Left Arm; Cuff Size: Standard 03-11-2013 14:29-0500 BP Systolic 122 mm[Hg] RACHEL Bartlett LPN [facility] Internal Medicine Work Phone: Comment on above: Patient Position: Sitting; Cuff Location : Left Arm; Cuff Size: Standard 03-11-2013 14:29-0500 BSA (Body Surface Area) 1.86 m2 RACHEL Bartlett LPN [facility] Work Phone: 03-11-2013 14:29-0500 Height 162.56 cm RACHEL Bartlett LPN [facility] Work Phone: 03-11-2013 14:29-0500 Pulse (Heart Rate) 70 /min RACHEL Bartlett LPN [facility] Internal Medicine Work Phone: Comment on above: Pattern: Regular 03-11-2013 14:29-0500 Respiratory Rate 18 /min RACHEL Bartlett LPN [facility] Internal Medicine Work Phone: Comment on above: Pattern: Unlabored 03-11-2013 14:29-0500 Weight 80.74 kg Leatha Morrison [facility] Internal Medicine Work Phone: 01-21-2013 14:50-0500 BMI (Body Mass Index) 31.28 kg/m2 Violetta Mandenis [facility] Work Phone: 01-21-2013 14:50-0500 Body weight 82.[address] [facility] Work Phone: 01-21-2013 14:50-0500 BP Diastolic 84 mm[Hg] Violetta Virgen [facility] Internal Medicine Work Phone: Comment on above: Patient Position: Sitting; Cuff Location : Left Arm; Cuff Size: Standard 01-21-2013 14:50-0500 BP Systolic 150 mm[Hg] Violetta Virgen [facility] Internal Medicine Work Phone: Comment on above: Patient Position: Sitting; Cuff Location : Left Arm; Cuff Size: Standard 01-21-2013 14:50-0500 BSA (Body Surface Area) 1.88 m2 Violetta Virgen [facility] Internal [facility] Work Phone: 01-21-2013 14:50-0500 Height 162.56 cm [facility]: 01-21-2013 14:50-0500 Pulse (Heart Rate) 82 /min [facility] Work [facility]: Comment on above: Pattern: Regular 01-21-2013 14:50-0500 Respiratory Rate 16 /min Violetta Virgen [facility] Internal Medicine Work Phone: Comment on above: Pattern: Unlabored 01-21-2013 14:50-0500 Weight 82.67 kg Leatha Morrison [facility] Internal Medicine Work Phone: 11-16-2012 14:21-0400 BMI (Body Mass Index) 31.28 kg/m2 Julianne Donnelly [facility] Internal Medicine Work Phone: 11-16-2012 14:21-0400 Body Temperature 97.8 [degF] Julianne Donnelly [facility] Internal Medicine Work Phone: Comment on above: Method: Oral 11-16-2012 14:21-0400 Body weight 82.67 kg Julianne Donnelly [facility] Internal Medicine Work Phone: 11-16-2012 14:21-0400 BP Diastolic 80 mm[Hg] Julianne Donnelly [facility] Internal Medicine Work Phone: Comment on above: Patient Position: Sitting; Cuff Location : Left Arm; Cuff Size: Standard 11-16-2012 14:21-0400 BP Systolic 122 mm[Hg] Julianne Donnelly LPN [facility] Work Phone: Comment on above: Patient Position: Sitting; Cuff Location : Left Arm; Cuff Size: Standard 11-16-2012 14:0400 BSA (Body Surface Area) 1.88 m2 Julianne Donnelly LPN [facility] Work Phone: 11-16-2012 14:040 Height 162.56 cm Julianne Donnelly LPN [facility] Work Phone: 11-16-2012 14:-040 Pulse (Heart Rate) 72 /min Julianne Donnelly LPN [facility] Work Phone: Comment on above: Pattern: Regular 11-16-2012 14:-0400 Pulse Oximetry 98 % Leatha Morrison [facility] Medicine Work Phone: Comment on above: Room air 11-16-2012 14:0400 Respiratory Rate 16 /min Julianne Donnelly LPN [facility] Work Phone: 11-16-2012 14:-040 SaO2% (BldA) [Mass fraction] 98 % Julianne Donnelly LPN [facility]; [facility] Work Phone: 11-16-2012 14:21-040 Weight 82.67 kg Leatha Morrison [facility] Work Phone: 09-21-2012 13:45-0400 BMI (Body Mass Index) 30.97 kg/m2 Julianne Donnelly LPN [facility] Work Phone: 09-21-2012 13:45-0400 Body Temperature 98 [degF] Julianne Donnelly LPN [facility] Work Phone: Comment on above: Method: Oral 09-21-2012 13:45-0400 Body weight 81.85 kg Julianne Donnelly LPN [facility] Work Phone: 09-21-2012 13:45-0400 BP Diastolic 102 mm[Hg] Julianne Donnelly LPN [facility] Work Phone: Comment on above: Patient Position: Sitting; Cuff Location : Left Arm; Cuff Size: Standard 09-21-2012 13:45-0400 BP Systolic 162 mm[Hg] Julianne Donnelly LPN [facility] Medicine Work Phone: Comment on above: Patient Position: Sitting; Cuff Location : Left Arm; Cuff Size: Standard 09-21-2012 13:45-0400 BSA (Body Surface Area) 1.87 m2 Julianne Donnelly LPN [facility] Internal Medicine Work Phone: 09-21-2012 13:45-0400 Height 162.56 cm Julianne Donnelly LPN [facility] Medicine Work Phone: 09-21-2012 13:45-0400 Pulse (Heart Rate) 94 /min Julianne Donnelly LPN [facility] Medicine Work Phone: Comment on above: Pattern: Regular 09-21-2012 13:45-0400 Pulse Oximetry 97 % Leatha Morrison [facility] Medicine Work Phone: Comment on above: Room air 09-21-2012 13:45-0400 Respiratory Rate 15 /min Julianne Donnelly LPN [facility] Medicine Work Phone: 09-21-2012 13:45-0400 SaO2% (BldA) [Mass fraction] 97 % Julianne Donnelly LPN [facility]; [facility] Work Phone: 09-21-2012 13:45-0400 Weight 81.85 kg Leatha Morrison [facility] Work Phone: 07-09-2012 15:47-0400 BMI (Body Mass Index) 33.4 kg/m2 Mer Solorio RN [facility] Internal Medicine Work Phone: 07-09-2012 15:47-0400 Body Temperature 98 [degF] Mer Solorio RN [facility] Internal Medicine Work Phone: Comment on above: Method: Temporal 07-09-2012 15:47-0400 Body weight 88.27 kg Mre Solorio RN [facility] Medicine Work Phone: 07-09-2012 15:47-0400 BP Diastolic 76 mm[Hg] Mer Solorio RN [facility] Work Phone: Comment on above: Patient Position: Sitting; Cuff Location : Left Arm; Cuff Size: Standard 07-09-2012 15:47-0400 BP Systolic 132 mm[Hg] Mer Solorio RN [facility] Work Phone: Comment on above: Patient Position: Sitting; Cuff Location : Left Arm; Cuff Size: Standard 07-09-2012 15:47-0400 BSA (Body Surface Area) 1.93 m2 Mer Solorio RN [facility] Work Phone: 07-09-2012 15:47-0400 Height 162.56 cm Mer Solorio RN [facility] Work Phone: 07-09-2012 15:47-0400 Pulse (Heart Rate) 72 /min Mer Solorio RN [facility] Work Phone: Comment on above: Pattern: Regular 07-09-2012 15:47-0400 Pulse Oximetry 97 % Leatha Doshiabram [facility] Work Phone: Comment on above: Room air 07-09-2012 15:47-0400 Respiratory Rate 16 /min Mer Solorio RN [facility] Work Phone: Comment on above: Pattern: Unlabored 07-09-2012 15:47-0400 SaO2% (BldA) [Mass fraction] 97 % Mer Solorio RN [facility]; [facility] Work Phone: 07-09-2012 15:47-0400 Weight 88.27 kg Leatha [facility] Work Phone: 05-31-2012 08:51-0400 BMI (Body Mass Index) 33.4 kg/m2 Bonnie Moise RN [facility] Work Phone: 05-31-2012 08:51-0400 Body Temperature 97.1 [degF] Bonnie Moise RN [facility] Work Phone: Comment on above: Method: Oral 05-31-2012 08:51-0400 Body weight 88.27 kg Bonnie Moise RN [facility] Work Phone: 05-31-2012 08:51-0400 BP Diastolic 82 mm[Hg] Bonnie Moise RN [facility] Work Phone: Comment on above: Patient Position: Sitting; Cuff Location : Left Arm; Cuff Size: Large 05-31-2012 08:51-0400 BP Systolic 140 mm[Hg] Bonnie Moise RN [facility] Work Phone: Comment on above: Patient Position: Sitting; Cuff Location : Left Arm; Cuff Size: Large 05-31-2012 08:51-0400 BSA (Body Surface Area) 1.93 m2 Bonnie Moise RN [facility] Work Phone: 05-31-2012 08:51-0400 Height 162.56 cm Bonnie Moise RN [facility] Work Phone: 05-31-2012 08:51-0400 Pulse (Heart Rate) 80 /min Bonnie Moise RN [facility] Work Phone: Comment on above: Pattern: Regular 05-31-2012 08:51-0400 Respiratory Rate 16 /min Bonnie Moise RN [facility] Work Phone: Comment on above: Pattern: Unlabored 05-31-2012 08:51-0400 Weight 88.27 kg Leatha Morrison [facility] Work Phone: 05-18-2012 08:42-0400 BMI (Body Mass Index) 33.4 kg/m2 Julianne Donnelly LPN [facility] Work Phone: 05-18-2012 08:42-0400 Body Temperature 98.7 [degF] Julianne Donnelly LPN [facility] Work Phone: Comment on above: Method: Oral 05-18-2012 08:42-0400 Body weight 88.27 kg Julianne Donnelly LPN [facility] Work Phone: 05-18-2012 08:42-0400 BP Diastolic 82 mm[Hg] Julianne Donnelly LPN [facility] Work Phone: Comment on above: Patient Position: Sitting; Cuff Location : Left Arm; Cuff Size: Standard 05-18-2012 08:42-0400 BP Systolic 132 mm[Hg] Julianne Donnelly LPN [facility] Work Phone: Comment on above: Patient Position: Sitting; Cuff Location : Left Arm; Cuff Size: Standard 05-18-2012 08:42-0400 BSA (Body Surface Area) 1.93 m2 Julianne Donnelly LPN [facility] Work Phone: 05-18-2012 08:42-0400 Height 162.56 cm Julianne Donnelly LPN [facility] Work Phone: 05-18-2012 08:42-0400 Pulse (Heart Rate) 80 /min Julianne Donnelly LPN [facility] Work Phone: Comment on above: Pattern: Regular 05-18-2012 08:42-0400 Respiratory Rate 16 /min Julianne Donnelly LPN [facility] Work Phone: 05-18-2012 08:42-0400 Weight 88.27 kg Leatha Morrison [facility] Work Phone: 05-08-2012 14:22-0400 BMI (Body Mass Index) 33.4 kg/m2 Julianne Donnelly LPN [facility] Work Phone: 05-08-2012 14:22-0400 Body Temperature 98.1 [degF] Julianne Donnelly LPN [facility] Work Phone: Comment on above: Method: Oral 05-08-2012 14:22-0400 Body weight 88.27 kg Julianne Donnelly LPN [facility] Work Phone: 05-08-2012 14:22-0400 BP Diastolic 86 mm[Hg] Julianne Donnelly LPN [facility] Work Phone: Comment on above: Patient Position: Sitting; Cuff Location : Left Arm; Cuff Size: Standard 05-08-2012 14:22-0400 BP Systolic 140 mm[Hg] Julianne Donnelly LPN [facility] Work Phone: Comment on above: Patient Position: Sitting; Cuff Location : Left Arm; Cuff Size: Standard 05-08-2012 14:22-0400 BSA (Body Surface Area) 1.93 m2 Julianne Donnelly LPN [facility] Work Phone: 05-08-2012 14:22-040 Height 162.56 cm Julianne Donnelly LPN [facility] Work Phone: 05-08-2012 14:22-0400 Pulse (Heart Rate) 84 /min Julianne Donnelly FAVIAN [facility] Work Phone: Comment on above: Pattern: Regular 05-08-2012 14:-0400 Pulse Oximetry 98 % Leatha Morrison [facility] Work Phone: Comment on above: Room air 05-08-2012 14:-0400 Respiratory Rate 17 /min Julianne Donnelly [facility] Work Phone: 05-08-2012 14:-0400 SaO2% (BldA) [Mass fraction] 98 % Julianne Andrzej BALLESTEROS [facility]; [facility] Work Phone: 05-08-2012 14:22-0400 Weight 88.27 kg Leatha Morrison [facility] Work Phone: 04-03-2012 15:57-0500 BMI (Body Mass Index) 33.4 kg/m2 Mer Solorio RN [facility] Work Phone: 04-03-2012 15:57-0500 Body Temperature 98.2 [degF] Mer Solorio RN [facility] Work Phone: Comment on above: Method: Oral 04-03-2012 15:57-0500 Body weight 88.27 kg Mer Solorio RN [facility] Work Phone: 04-03-2012 15:57-0500 BP Diastolic 78 mm[Hg] Mer Solorio RN [facility] Work Phone: Comment on above: Patient Position: Sitting; Cuff Location : Left Arm; Cuff Size: Standard 04-03-2012 15:57-0500 BP Systolic 156 mm[Hg] Mer Solorio RN [facility] Work Phone: Comment on above: Patient Position: Sitting; Cuff Location : Left Arm; Cuff Size: Standard 04-03-2012 15:57-0500 BSA (Body Surface Area) 1.93 m2 Mer Solorio RN [facility] Work Phone: 04-03-2012 15:57-0500 Height 162.56 cm Mer Solorio RN [facility] Work Phone: 04-03-2012 15:57-0500 Pulse (Heart Rate) 72 /min Mer Solorio RN [facility] Work Phone: Comment on above: Pattern: Regular 04-03-2012 15:57-0500 Respiratory Rate 16 /min Mer Solorio RN [facility] Work Phone: Comment on above: Pattern: Unlabored 04-03-2012 15:57-0500 Weight 88.27 kg Leatha Morrison [facility] Work Phone: 11-01-2011 15:42-0400 BMI (Body Mass Index) 33.4 kg/m2 Mer Solorio RN [facility] Work Phone: 11-01-2011 15:42-0400 Body Temperature 98.4 [degF] Mer Solorio RN [facility] Work Phone: Comment on above: Method: Oral 11-01-2011 15:42-0400 Body weight 88.27 kg Mer Solorio RN [facility] Work Phone: 11-01-2011 15:42-0400 BP Diastolic 72 mm[Hg] Mer Solorio RN [facility] Work Phone: Comment on above: Patient Position: Sitting; Cuff Location : Left Arm; Cuff Size: Standard 11-01-2011 15:42-0400 BP Systolic 124 mm[Hg] Mer Solorio RN [facility] Work Phone: Comment on above: Patient Position: Sitting; Cuff Location : Left Arm; Cuff Size: Standard 11-01-2011 15:42-0400 BSA (Body Surface Area) 1.93 m2 Mer Solorio RN [facility] Work Phone: 11-01-2011 15:42-0400 Height 162.56 cm Mer Solorio RN [facility] Work Phone: 11-01-2011 15:42-0400 Pulse (Heart Rate) 72 /min Mer Solorio RN [facility] Work Phone: Comment on above: Pattern: Regular 11-01-2011 15:42-0400 Respiratory Rate 16 /min Mer Solorio RN [facility] Work Phone: Comment on above: Pattern: Unlabored 11-01-2011 15:42-0400 Weight 88.27 kg Leatha Morrison [facility] Work Phone: 10-04-2011 11:13-0400 BMI (Body Mass Index) 33.81 kg/m2 Julianne Donnelly [facility] Work Phone: 10-04-2011 11:13-0400 Body Temperature 98.2 [degF] Julianne Donnelly [facility] Work Phone: Comment on above: Method: Oral 10-04-2011 11:13-0400 Body weight 89.36 kg Julianne Donnelly [facility] Work Phone: 10-04-2011 11:13-0400 BP Diastolic 74 mm[Hg] Julianne Donnelly [facility] Work Phone: Comment on above: Patient Position: Sitting; Cuff Location : Left Arm; Cuff Size: Standard 10-04-2011 11:13-0400 BP Systolic 128 mm[Hg] Julianne Donnelly F[facility] Work Phone: Comment on above: Patient Position: Sitting; Cuff Location : Left Arm; Cuff Size: Standard 10-04-2011 11:13-0400 BSA (Body Surface Area) 1.94 m2 Julianne Donnelly [facility] Work Phone: 10-04-2011 11:13-0400 Height 162.56 cm Julianne Donnelly [facility] Work Phone: 10-04-2011 11:13-0400 Pulse (Heart Rate) 80 /min Julianne Donnelly [facility] Work Phone: Comment on above: Pattern: Regular 10-04-2011 11:13-0400 Respiratory Rate 18 /min Julianne Donnelly LPN [facility] Work Phone: Comment on above: Pattern: Unlabored 10-04-2011 11:13-0400 Weight 89.36 kg Leatha Morrison [facility] Work Phone: 09-07-2011 14:54-0400 BMI (Body Mass Index) 33.81 kg/m2 Claudia Jules LPN [facility] Work Phone: 09-07-2011 14:54-0400 Body weight 89.36 kg Claudia Jules LPN [facility] Work Phone: 09-07-2011 14:54-0400 BSA (Body Surface Area) 1.94 m2 Claudia Jules [employer] DIRECT[employer] [facility] Work Phone: 09-07-2011 14:54-0400 Height 162.56 cm Claudia Jules LPN [facility] Work Phone: 09-07-2011 14:54-0400 Pulse (Heart Rate) 78 /min Claudia Jules LPN [facility] Work Phone: Comment on above: Pattern: Regular 09-07-2011 14:54-0400 Respiratory Rate 18 /min Claudia Jules LPN [facility] Work Phone: Comment on above: Pattern: Unlabored 09-07-2011 14:54-0400 Weight 89.36 kg Leatha Morrison [facility] Work Phone: 09-05-2011 14:23-0400 BMI (Body Mass Index) 33.81 kg/m2 Julianne Donnelly [employer] [facility] Work Phone: 09-05-2011 14:23-0400 Body Temperature 97.8 [degF] Julianne Donnelly LPN [facility] Work Phone: Comment on above: Method: Oral 09-05-2011 14:23-0400 Body weight 89.36 kg Julianne Donnelly LPN [facility] Work Phone: 09-05-2011 14:23-0400 BP Diastolic 74 mm[Hg] Julianne Donnelly LPN [facility] Work Phone: Comment on above: Patient Position: Sitting; Cuff Location : Left Arm; Cuff Size: Standard 09-05-2011 14:23-0400 BP Systolic 132 mm[Hg] Julianne Donnelly LPN [facility] Work Phone: Comment on above: Patient Position: Sitting; Cuff Location : Left Arm; Cuff Size: Standard 09-05-2011 14:23-0400 BSA (Body Surface Area) 1.94 m2 Julianne Donnelly LPN [facility] Work Phone: 09-05-2011 14:23-0400 Height 162.56 cm Julianne Donnelly LPN [facility] Work Phone: 09-05-2011 14:23-0400 Pulse (Heart Rate) 102 /min Julianne Donnelly LPN [facility] Work Phone: Comment on above: Pattern: Regular 09-05-2011 14:23-0400 Pulse Oximetry 97 % Leatha Morrison [facility] Work Phone: Comment on above: Room air 09-05-2011 14:23-0400 Respiratory Rate 18 /min Julianne Donnelly LPN [facility] Work Phone: 09-05-2011 14:23-0400 SaO2% (BldA) [Mass fraction] 97 % Julianne Donnelly LPN [facility]; [facility] Work Phone: 09-05-2011 14:23-0400 Weight 89.36 kg Leatha Morrison [facility] Work Phone: 07-28-2011 08:24-0400 BMI (Body Mass Index) 33.81 kg/m2 Jodi Bourne RN [facility] Work Phone: 07-28-2011 08:24-0400 Body Temperature 97.9 [degF] Jodi Bourne RN [facility] Work Phone: Comment on above: Method: Oral 07-28-2011 08:24-0400 Body weight 89.36 kg Jodi Bourne RN [facility] Work Phone: 07-28-2011 08:24-0400 BP Diastolic 82 mm[Hg] Jodi Bourne RN [facility] Work Phone: Comment on above: Patient Position: Sitting; Cuff Location : Left Arm; Cuff Size: Large 07-28-2011 08:24-0400 BP Systolic 142 mm[Hg] Jodi Bourne RN [facility] Work Phone: Comment on above: Patient Position: Sitting; Cuff Location : Left Arm; Cuff Size: Large 07-28-2011 08:24-0400 BSA (Body Surface Area) 1.94 m2 Jodi Bourne RN [facility] Work Phone: 07-28-2011 08:24-0400 Height 162.56 cm Jodi Bourne RN [facility] Work Phone: 07-28-2011 08:24-0400 Pulse (Heart Rate) 76 /min Jodi Bourne RN [facility] Work Phone: Comment on above: Pattern: Regular 07-28-2011 08:24-0400 Respiratory Rate 20 /min Jodi Bourne RN [facility] Work Phone: Comment on above: Pattern: Unlabored 07-28-2011 08:24-0400 Weight 89.36 kg Leatha Morrison [facility] Work Phone: 07-20-2011 11:25-0400 BMI (Body Mass Index) 33.99 kg/m2 Julianne Donnelly LPN [facility] Work Phone: 07-20-2011 11:25-0400 Body Temperature 98.4 [degF] Julianne Donnelly LPN [facility] Work Phone: Comment on above: Method: Oral 07-20-2011 11:25-0400 Body weight 89.81 kg Julianne Donnelly LPN [facility] Work Phone: 07-20-2011 11:25-0400 BP Diastolic 76 mm[Hg] Julianne Donnelly LPN [facility] Work Phone: Comment on above: Patient Position: Sitting; Cuff Location : Left Arm; Cuff Size: Standard 07-20-2011 11:25-0400 BP Systolic 138 mm[Hg] Julianne Donnelly FAVIAN [facility] Work Phone: Comment on above: Patient Position: Sitting; Cuff Location : Left Arm; Cuff Size: Standard 07-20-2011 11:25-0400 BSA (Body Surface Area) 1.95 m2 Julianne Donnelly [facility] Work Phone: 07-20-2011 11:25-040 Height 162.56 cm Julianne Donnelly FAVIAN [facility] Work Phone: 07-20-2011 11:25-0400 Pulse (Heart Rate) 92 /min Julianne Donnelly FAVIAN [facility] Work Phone: Comment on above: Pattern: Regular 07-20-2011 11:25-0400 Pulse Oximetry 96 % Leatha Morrison [facility] Work Phone: Comment on above: Room air 07-20-2011 11:25-0400 Respiratory Rate 18 /min Julianne Donnelly FAVIAN [facility] Work Phone: 07-20-2011 11:25-0400 SaO2% (BldA) [Mass fraction] 96 % Julianne Donnelly FAVIAN [facility]; [facility] Work Phone: 07-20-2011 11:25-0400 Weight 89.81 kg Leatha Morrison [facility] Work Phone: 07-14-2011 07:43-0400 BMI (Body Mass Index) 33.99 kg/m2 RACHEL Dhruv BALLESTEROS [facility] Work Phone: 07-14-2011 07:43-0400 Body Temperature 98.4 [degF] RACHEL Bartlett LPN [facility] Work Phone: Comment on above: Method: Oral 07-14-2011 07:43-0400 Body weight 89.81 kg RACHEL Bartlett [facility] Work Phone: 07-14-2011 07:43-0400 BP Diastolic 80 mm[Hg] RACHEL Bartlett LPN [facility] Work Phone: Comment on above: Patient Position: Sitting; Cuff Location : Left Arm; Cuff Size: Standard 07-14-2011 07:43-0400 BP Systolic 126 mm[Hg] RACHEL Bartlett LPN [facility] Work Phone: Comment on above: Patient Position: Sitting; Cuff Location : Left Arm; Cuff Size: Standard 07-14-2011 07:43-0400 BSA (Body Surface Area) 1.95 m2 RACHEL Bartlett LPN [facility] Work Phone: 07-14-2011 07:43-0400 Height 162.56 cm RACHEL Bartlett LPN [facility] Work Phone: 07-14-2011 07:43-0400 Pulse (Heart Rate) 76 /min RACHEL Bartlett LPN [facility] Work Phone: Comment on above: Pattern: Regular 07-14-2011 07:43-0400 Respiratory Rate 18 /min RACHEL Bartlett LPN [facility] Work Phone: Comment on above: Pattern: Unlabored 07-14-2011 07:43-0400 Weight 89.81 kg Leatha Morrison [facility] Work Phone: 07-04-2011 12:56-0400 BMI (Body Mass Index) 33.99 kg/m2 RACHEL Bartlett LPN [facility] Work Phone: 07-04-2011 12:56-0400 Body Temperature 97.6 [degF] RACHEL Bartlett LPN [facility] Work Phone: Comment on above: Method: Oral 07-04-2011 12:56-0400 Body weight 89.81 kg RACHEL Bartlett LPN [facility] Work Phone: 07-04-2011 12:56-0400 BP Diastolic 84 mm[Hg] RACHEL Bartlett LPN [facility] Work Phone: Comment on above: Patient Position: Sitting; Cuff Location : Left Arm; Cuff Size: Standard 07-04-2011 12:56-0400 BP Systolic 132 mm[Hg] RACHEL Bartlett LPN [facility] Work Phone: Comment on above: Patient Position: Sitting; Cuff Location : Left Arm; Cuff Size: Standard 07-04-2011 12:56-0400 BSA (Body Surface Area) 1.95 m2 RACHEL Bartlett LPN [facility] Work Phone: 07-04-2011 12:56-0400 Height 162.56 cm RACHEL Bartlett LPN [facility] Work Phone: 07-04-2011 12:56-0400 Pulse (Heart Rate) 74 /min RACHEL Bartlett LPN [facility] Work Phone: Comment on above: Pattern: Regular 07-04-2011 12:56-0400 Respiratory Rate 18 /min RACHEL Bartlett LPN [facility] Work Phone: Comment on above: Pattern: Unlabored 07-04-2011 12:56-0400 Weight 89.81 kg Leatha Morrison [facility] Work Phone: 07-01-2011 07:53-0400 BMI (Body Mass Index) 33.99 kg/m2 RACHEL Bartlett LPN [facility] Work Phone: 07-01-2011 07:53-0400 Body Temperature 98 [degF] RACHEL Bartlett LPN [facility] Work Phone: Comment on above: Method: Oral 07-01-2011 07:53-0400 Body weight 89.81 kg RACHEL Bartlett LPN [facility] Work Phone: 07-01-2011 07:53-0400 BP Diastolic 84 mm[Hg] RACHEL Bartlett LPN [facility] Work Phone: Comment on above: Patient Position: Sitting; Cuff Location : Left Arm; Cuff Size: Standard 07-01-2011 07:53-0400 BP Systolic 128 mm[Hg] RACHEL Bartlett LPN [facility] Work Phone: Comment on above: Patient Position: Sitting; Cuff Location : Left Arm; Cuff Size: Standard 07-01-2011 07:53-0400 BSA (Body Surface Area) 1.95 m2 RACHEL Bartlett LPN [facility] Work Phone: 07-01-2011 07:53-0400 Height 162.56 cm RACHEL Bartlett LPN [facility] Work Phone: 07-01-2011 07:53-0400 Pulse (Heart Rate) 74 /min RACHEL Bartlett LPN [facility] Work Phone: Comment on above: Pattern: Regular 07-01-2011 07:53-0400 Respiratory Rate 18 /min RACHEL Bartlett LPN [facility] Work Phone: Comment on above: Pattern: Unlabored 07-01-2011 07:53-0400 Weight 89.81 kg Leatha Morrison [facility] Work Phone: 06-30-2011 08:14-0400 BMI (Body Mass Index) 33.99 kg/m2 RACHEL Bartlett LPN [facility] Work Phone: 06-30-2011 08:14-0400 Body Temperature 98 [degF] RACHEL Bartlett LPN [facility] Work Phone: Comment on above: Method: Oral 06-30-2011 08:14-0400 Body weight 89.81 kg RACHEL Bartlett LPN [facility] Work Phone: 06-30-2011 08:14-0400 BP Diastolic 80 mm[Hg] RACHEL Bartlett LPN [facility] Work Phone: Comment on above: Patient Position: Sitting; Cuff Location : Left Arm; Cuff Size: Standard 06-30-2011 08:14-0400 BP Systolic 140 mm[Hg] RACHEL Bartlett LPN [facility] Work Phone: Comment on above: Patient Position: Sitting; Cuff Location : Left Arm; Cuff Size: Standard 06-30-2011 08:14-0400 BSA (Body Surface Area) 1.95 m2 RACHEL Bartlett LPN [facility] Work Phone: 06-30-2011 08:14-0400 Height 162.56 cm RACHEL Bartlett LPN [facility] Work Phone: 06-30-2011 08:14-0400 Pulse (Heart Rate) 70 /min RACHEL Bartlett LPN [facility] Work Phone: Comment on above: Pattern: Regular 06-30-2011 08:14-0400 Respiratory Rate 18 /min RACHEL Bartlett LPN [facility] Work Phone: Comment on above: Pattern: Unlabored 06-30-2011 08:14-0400 Weight 89.81 kg Leatha Morrison [facility] Work Phone: 06-29-2011 08:39-0400 BMI (Body Mass Index) 33.99 kg/m2 Julianne Donnelly [facility] Work Phone: 06-29-2011 08:39-0400 Body Temperature 98.2 [degF] Julianne Donnelly [facility] Work Phone: Comment on above: Method: Oral 06-29-2011 08:39-0400 Body weight 89.81 kg Julianne Donnelly [facility] Work Phone: 06-29-2011 08:39-0400 BP Diastolic 86 mm[Hg] Julianne Donnelly [facility] Work Phone: Comment on above: Patient Position: Sitting; Cuff Location : Left Arm; Cuff Size: Standard 06-29-2011 08:39-0400 BP Systolic 130 mm[Hg] Julianne Donnelly [facility] Work Phone: Comment on above: Patient Position: Sitting; Cuff Location : Left Arm; Cuff Size: Standard 06-29-2011 08:39-0400 BSA (Body Surface Area) 1.95 m2 Julianne Donnelly [facility] Work Phone: 06-29-2011 08:39-0400 Height 162.56 cm Julianne Donnelly [facility] Work Phone: 06-29-2011 08:39-0400 Pulse (Heart Rate) 86 /min Julianne Donnelly [facility] Work Phone: Comment on above: Pattern: Regular 06-29-2011 08:39-0400 Pulse Oximetry 96 % Leatha Morrison [facility] Work Phone: Comment on above: Room air 06-29-2011 08:39-0400 Respiratory Rate 17 /min Julianne Donnelly [facility] Work Phone: 06-29-2011 08:39-0400 SaO2% (BldA) [Mass fraction] 96 % Julianne Donnelly FAVIAN [facility]; [facility] Work Phone: 06-29-2011 08:39-0400 Weight 89.81 kg Leatha Morrison [facility] Work Phone: 06-28-2011 08:25-0400 BMI (Body Mass Index) 33.99 kg/m2 RACHEL Bartlett F[facility]IAN [facility] Work Phone: 06-28-2011 08:25-0400 Body Temperature 97.3 [degF] RACHEL Dhruv FAVIAN [facility] Work Phone: Comment on above: Method: Oral 06-28-2011 08:25-0400 Body weight 89.81 kg RACHEL Bartlett FAVIAN [facility] Work Phone: 06-28-2011 08:25-0400 BP Diastolic 84 mm[Hg] RACHEL Bartlett FAVIAN [facility] Work Phone: Comment on above: Patient Position: Sitting; Cuff Location : Left Arm; Cuff Size: Standard 06-28-2011 08:25-0400 BP Systolic 128 mm[Hg] RACHEL Bartlett FAVIAN [facility] Work Phone: Comment on above: Patient Position: Sitting; Cuff Location : Left Arm; Cuff Size: Standard 06-28-2011 08:25-0400 BSA (Body Surface Area) 1.95 m2 RACHEL Dhruv BALLESTEROS [facility] Work Phone: 06-28-2011 08:25-0400 Height 162.56 cm RACHEL Dhruv FAVIAN [facility] Work Phone: 06-28-2011 08:25-0400 Pulse (Heart Rate) 76 /min RACHEL Dhruv FAVIAN [facility] Work Phone: Comment on above: Pattern: Regular 06-28-2011 08:25-0400 Respiratory Rate 18 /min RACHEL Bartlett LPN [facility] Work Phone: Comment on above: Pattern: Unlabored 06-28-2011 08:25-0400 Weight 89.81 kg Leatha Morrison [facility] Work Phone: 06-27-2011 09:46-0400 BMI (Body Mass Index) 33.99 kg/m2 RACHEL Bartlett LPN [facility] Work Phone: 06-27-2011 09:46-0400 Body Temperature 98.1 [degF] RACHEL Bartlett LPN [facility] Work Phone: Comment on above: Method: Oral 06-27-2011 09:46-0400 Body weight 89.81 kg RACHEL Bartlett LPN [facility] Medicine Work Phone: 06-27-2011 09:46-0400 BP Diastolic 86 mm[Hg] RACHEL Bartlett LPN [facility] Work Phone: Comment on above: Patient Position: Sitting; Cuff Location : Left Arm; Cuff Size: Standard 06-27-2011 09:46-0400 BP Systolic 130 mm[Hg] RACHEL Bartlett LPN [facility] Work Phone: Comment on above: Patient Position: Sitting; Cuff Location : Left Arm; Cuff Size: Standard 06-27-2011 09:46-0400 BSA (Body Surface Area) 1.95 m2 RACHEL Bartlett LPN [facility] Work Phone: 06-27-2011 09:46-0400 Height 162.56 cm RACHEL Bartlett LPN [facility] Work Phone: 06-27-2011 09:46-0400 Pulse (Heart Rate) 80 /min RACHEL Bartlett LPN [facility] Medicine Work Phone: Comment on above: Pattern: Regular 06-27-2011 09:46-0400 Respiratory Rate 18 /min RACHEL Bartlett LPN [facility] Work Phone: Comment on above: Pattern: Unlabored 06-27-2011 09:46-0400 Weight 89.81 kg Leatha Morrison [facility] Work Phone: 06-24-2011 11:27-0400 BMI (Body Mass Index) 33.99 kg/m2 Julianne Donnelly LPN [facility] Work Phone: 06-24-2011 11:27-0400 Body Temperature 98.1 [degF] Julianne Donnelly LPN [facility] Medicine Work Phone: Comment on above: Method: Oral 06-24-2011 11:27-0400 Body weight 89.81 kg Julianne Donnelly LPN [facility] Work Phone: 06-24-2011 11:27-0400 BP Diastolic 86 mm[Hg] Julianne Donnelly LPN [facility] Work Phone: Comment on above: Patient Position: Sitting; Cuff Location : Left Arm; Cuff Size: Standard 06-24-2011 11:27-0400 BP Systolic 128 mm[Hg] Julianne Donnelly LPN [facility] Medicine Work Phone: Comment on above: Patient Position: Sitting; Cuff Location : Left Arm; Cuff Size: Standard 06-24-2011 11:27-0400 BSA (Body Surface Area) 1.95 m2 Julianne Donnelly LPN [facility] Work Phone: 06-24-2011 11:27-0400 Height 162.56 cm Julianne Donnelly LPN [facility] Work Phone: 06-24-2011 11:27-0400 Pulse (Heart Rate) 94 /min Julianne Donnelly LPN [facility] Work Phone: Comment on above: Pattern: Regular 06-24-2011 11:27-0400 Pulse Oximetry 97 % Leatha Doshielviaalise [facility] Work Phone: Comment on above: Room air 06-24-2011 11:27-0400 Respiratory Rate 17 /min Julianne Donnelly LPN [facility] Work Phone: 06-24-2011 11:27-0400 SaO2% (BldA) [Mass fraction] 97 % Julianne Donnelly LPN [facility]; [facility] Work Phone: 06-24-2011 11:27-0400 Weight 89.81 kg Leatha Morrison [facility] Work Phone: 06-21-2011 09:25-0400 BMI (Body Mass Index) 33.99 kg/m2 Julianne Donnelly LPN [facility] Work Phone: 06-21-2011 09:25-0400 Body Temperature 98.6 [degF] Julianne Donnelly LPN [facility] Work Phone: Comment on above: Method: Oral 06-21-2011 09:25-0400 Body weight 89.81 kg Julianne Donnelly LPN [facility] Work Phone: 06-21-2011 09:25-0400 BP Diastolic 78 mm[Hg] Julianne Donnelly LPN [facility] Work Phone: Comment on above: Patient Position: Sitting; Cuff Location : Left Arm; Cuff Size: Standard 06-21-2011 09:25-0400 BP Systolic 128 mm[Hg] Julianne Donnelly LPN [facility] Work Phone: Comment on above: Patient Position: Sitting; Cuff Location : Left Arm; Cuff Size: Standard 06-21-2011 09:25-0400 BSA (Body Surface Area) 1.95 m2 Julianne Donnelly LPN [facility] Work Phone: 06-21-2011 09:25-0400 Height 162.56 cm Julianne Donnelly LPN [facility] Work Phone: 06-21-2011 09:25-0400 Pulse (Heart Rate) 92 /min Julianne Donnelly LPN [facility] Work Phone: Comment on above: Pattern: Regular 06-21-2011 09:25-0400 Pulse Oximetry 96 % Leatha Morrison [facility] Work Phone: Comment on above: Room air 06-21-2011 09:25-0400 Respiratory Rate 18 /min Julianne Donnelly LPN [facility] Work Phone: 06-21-2011 09:25-0400 SaO2% (BldA) [Mass fraction] 96 % Julianne Andrzej FAVIAN [facility]; [facility] Work Phone: 06-21-2011 09:25-0400 Weight 89.81 kg Leatha Morrison [facility] Work Phone: 06-14-2011 08:44-0400 BMI (Body Mass Index) 33.99 kg/m2 Mer Solorio RN [facility] Work Phone: 06-14-2011 08:44-0400 Body Temperature 97.3 [degF] Mer Solorio RN [facility] Work Phone: Comment on above: Method: Temporal 06-14-2011 08:44-0400 Body weight 89.81 kg Mer Solorio RN [facility] Work Phone: 06-14-2011 08:44-0400 BP Diastolic 90 mm[Hg] Mer Solorio RN [facility] Work Phone: Comment on above: Patient Position: Sitting; Cuff Location : Left Arm; Cuff Size: Standard 06-14-2011 08:44-0400 BP Systolic 130 mm[Hg] Mer Solorio RN [facility] Work Phone: Comment on above: Patient Position: Sitting; Cuff Location : Left Arm; Cuff Size: Standard 06-14-2011 08:44-0400 BSA (Body Surface Area) 1.95 m2 Mer Solorio RN [facility] Work Phone: 06-14-2011 08:44-0400 Height 162.56 cm Mer Solorio RN [facility] Work Phone: 06-14-2011 08:44-0400 Pulse (Heart Rate) 68 /min Mer Solorio RN [facility] Work Phone: Comment on above: Pattern: Regular 06-14-2011 08:44-0400 Respiratory Rate 18 /min Mer Solorio RN [facility] Work Phone: Comment on above: Pattern: Unlabored 06-14-2011 08:44-0400 Weight 89.81 kg Leatha Morrison [facility] Work Phone: 02-25-2011 14:19-0500 BMI (Body Mass Index) 33.99 kg/m2 Julianne Donnelly LPN [facility] Work Phone: 02-25-2011 14:19-0500 Body Temperature 98.2 [degF] Julianne Donnelly LPN [facility] Work Phone: Comment on above: Method: Oral 02-25-2011 14:-0500 Body weight 89.81 kg Julianne Donnelly LPN [facility] Work Phone: 02-25-2011 14:19-0500 BP Diastolic 80 mm[Hg] Julianne Donnelly LPN [facility] Work Phone: Comment on above: Patient Position: Sitting; Cuff Location : Left Arm; Cuff Size: Standard 02-25-2011 14:19-0500 BP Systolic 138 mm[Hg] Julianne Donnelly LPN [facility] Work Phone: Comment on above: Patient Position: Sitting; Cuff Location : Left Arm; Cuff Size: Standard 02-25-2011 14:19-0500 BSA (Body Surface Area) 1.95 m2 Julianne Donnelly LPN [facility] Work Phone: 02-25-2011 14:050 Height 162.56 cm Julianne Donnelly LPN [facility] Work Phone: 02-25-2011 14:19-0500 Pulse (Heart Rate) 84 /min Julianne Donnelly LPN [facility] Work Phone: Comment on above: Pattern: Regular 02-25-2011 14:19-0500 Respiratory Rate 17 /min Julianne Donnelly LPN [facility] Work Phone: Comment on above: Pattern: Unlabored 02-25-2011 14:19-0500 Weight 89.81 kg Leatha Morrison [facility] Work Phone: 02-07-2011 08:27-0500 BMI (Body Mass Index) 33.99 kg/m2 Julianne Donnelly LPN [facility] Work Phone: Comment on above: hasn't taken meds yet today 02-07-2011 08:27-0500 Body Temperature 97.7 [degF] Julianne Donnelly ASSISTANT ART DIRECTOR [facility] Work Phone: Comment on above: Method: Oral hasn't taken meds ye t today 02-07-2011 08:27-0500 Body weight 89.81 kg Julianne Donnelly ASSISTANT ART DIRECTOR [facility] Work Phone: Comment on above: hasn't taken meds yet today 02-07-2011 08:27-0500 BP Diastolic 90 mm[Hg] Julianne Donnelly FAVIAN [facility] Work Phone: Comment on above: Patient Position: Sitting; Cuff Location : Left Arm; Cuff Size: Standard hasn't taken meds ye t today 02-07-2011 08:27-0500 BP Systolic 144 mm[Hg] Julinane Donnelly FAVIAN [facility] Work Phone: Comment on above: Patient Position: Sitting; Cuff Location : Left Arm; Cuff Size: Standard hasn't taken meds ye t today 02-07-2011 08:27-0500 BSA (Body Surface Area) 1.95 m2 Julianne Donnelly FAVIAN [facility] Work Phone: Comment on above: hasn't taken meds yet today 02-07-2011 08:27-0500 Height 162.56 cm Julianne Donnelly FAVIAN [facility] Work Phone: Comment on above: hasn't taken meds yet today 02-07-2011 08:27-0500 Pulse (Heart Rate) 82 /min Julianne Donnelly FAVIAN [facility] Work Phone: Comment on above: Pattern: Regular hasn't taken meds ye t today 02-07-2011 08:27-0500 Pulse Oximetry 97 % Leatha Tamiko [facility] Work Phone: Comment on above: Room air hasn't taken meds ye t today 02-07-2011 08:27-0500 Respiratory Rate 16 /min Julianne Donnelly FAVIAN [facility] Work Phone: Comment on above: Pattern: Unlabored hasn't taken meds ye t today 02-07-2011 08:27-0500 SaO2% (BldA) [Mass fraction] 97 % Julianne Donnelly FAVIAN [facility]; [facility] Work Phone: 02-07-2011 08:27-0500 Weight 89.81 kg Leatha Morrison [facility] Work Phone: Comment on above: hasn't taken meds yet today 01-11-2011 08:55-0500 BMI (Body Mass Index) 33.99 kg/m2 RACHEL Bartlett ASSISTANT ART DIRECTOR [facility] Work Phone: 01-11-2011 08:55-0500 Body Temperature 97.9 [degF] RACHEL Bartlett ASSISTANT ART DIRECTOR [facility] Work Phone: Comment on above: Method: Oral 01-11-2011 08:55-0500 Body weight 89.81 kg RACHELBERNADETTE Bartlett [facility] Work Phone: 01-11-2011 08:55-0500 BP Diastolic 80 mm[Hg] RACHEL Bartlett [facility] Work Phone: Comment on above: Patient Position: Sitting; Cuff Location : Left Arm; Cuff Size: Standard 01-11-2011 08:55-0500 BP Systolic 120 mm[Hg] RACHEL Dhruv ASSISTANT ART DIRECTOR [facility] Work Phone: Comment on above: Patient Position: Sitting; Cuff Location : Left Arm; Cuff Size: Standard 01-11-2011 08:55-0500 BSA (Body Surface Area) 1.95 m2 RACHEL Bartlett ASSISTANT ART DIRECTOR [facility] Work Phone: 01-11-2011 08:55-0500 Height 162.56 cm RACHELBERNADETTE Bartlett LPN [facility] Work Phone: 01-11-2011 08:55-0500 Pulse (Heart Rate) 76 /min RACHEL Dhruv ASSISTANT ART DIRECTOR [facility] Work Phone: Comment on above: Pattern: Regular 01-11-2011 08:55-0500 Respiratory Rate 18 /min RACHEL Bartlett ASSISTANT ART DIRECTOR [facility] Work Phone: Comment on above: Pattern: Unlabored 01-11-2011 08:55-0500 Weight 89.81 kg Leatha Morrison [facility] Work Phone: 10-07-2010 08:36-0400 BMI (Body Mass Index) 34.52 kg/m2 Julianne Donnelly [facility] Work Phone: 10-07-2010 08:36-0400 Body Temperature 97.8 [degF] Julianne Donnelly ASSISTANT ART DIRECTOR [facility] Work Phone: Comment on above: Method: Oral 10-07-2010 08:36-0400 Body weight 91.23 kg Julianne Donnelly [facility] Work Phone: 10-07-2010 08:36-0400 BP Diastolic 86 mm[Hg] Julianne Donnelly [facility] Work Phone: Comment on above: Patient Position: Sitting; Cuff Location : Left Arm; Cuff Size: Standard 10-07-2010 08:36-0400 BP Systolic 138 mm[Hg] Julianne Donnelly ASSISTANT ART DIRECTOR [facility] Work Phone: Comment on above: Patient Position: Sitting; Cuff Location : Left Arm; Cuff Size: Standard 10-07-2010 08:36-0400 BSA (Body Surface Area) 1.96 m2 Julianne Donnelly ASSISTANT ART DIRECTOR [facility] Work Phone: 10-07-2010 08:36-0400 Height 162.56 cm Julianne Donnelly [facility] Work Phone: 10-07-2010 08:36-0400 Pulse (Heart Rate) 72 /min Julianne Donnelly [facility] Work Phone: Comment on above: Pattern: Regular 10-07-2010 08:36-0400 Respiratory Rate 16 /min Julianne Donnelly ASSISTANT ART DIRECTOR [facility] Work Phone: Comment on above: Pattern: Unlabored 10-07-2010 08:36-0400 Weight 91.23 kg Leatha Morrison [facility] Work Phone: 06-08-2010 09:08-0400 Body Temperature 97.4 [degF] Julianne Donnelly LPN [facility] Work Phone: Comment on above: Method: Oral 06-08-2010 09:08-0400 Body weight 92.08 kg Julianne Donnelly LPN [facility] Work Phone: 06-08-2010 09:08-0400 BP Diastolic 88 mm[Hg] Julianne Donnelly LPN [facility] Work Phone: Comment on above: Patient Position: Sitting; Cuff Location : Left Arm; Cuff Size: Standard 06-08-2010 09:08-0400 BP Systolic 150 mm[Hg] Julianne Donnelly LPN [facility] Work Phone: Comment on above: Patient Position: Sitting; Cuff Location : Left Arm; Cuff Size: Standard 06-08-2010 09:08-0400 Pulse (Heart Rate) 74 /min Julianne Donnelly LPN [facility] Work Phone: Comment on above: Pattern: Regular 06-08-2010 09:08-0400 Pulse Oximetry 98 % Leatha Morrison [facility] Work Phone: Comment on above: Room air 06-08-2010 09:08-0400 Respiratory Rate 17 /min Julianne Donnelly LPN [facility] Work Phone: Comment on above: Pattern: Unlabored 06-08-2010 09:08-0400 SaO2% (BldA) [Mass fraction] 98 % Julianne Donnelly LPN [facility]; [facility] Work Phone: 06-08-2010 09:08-0400 Weight 92.08 kg Leatha Morrison [facility] Work Phone: 01-21-2010 09:09-0500 Body Temperature 97.1 [degF] Bonnie Moise RN [facility] Work Phone: Comment on above: Method: Oral 01-21-2010 09:09-0500 Body weight 92.08 kg Bonnie Moise RN [facility] Work Phone: 01-21-2010 09:09-0500 BP Diastolic 82 mm[Hg] Bonnie Moise RN [facility] Work Phone: Comment on above: Patient Position: Sitting; Cuff Location : Left Arm; Cuff Size: Large 01-21-2010 09:09-0500 BP Systolic 148 mm[Hg] Bonnie Moise RN [facility] Work Phone: Comment on above: Patient Position: Sitting; Cuff Location : Left Arm; Cuff Size: Large 01-21-2010 09:09-0500 Pulse (Heart Rate) 72 /min Bonnie Moise RN [facility] Work Phone: Comment on above: Pattern: Regular 01-21-2010 09:09-0500 Respiratory Rate 20 /min Bonnie Moise RN [facility] Work Phone: Comment on above: Pattern: Unlabored 01-21-2010 09:09-0500 Weight 92.08 kg Leatha Morrison [facility] Work Phone: 12-31-2009 07:50-0500 Body Temperature 97.2 [degF] Mer Solorio RN [facility] Work Phone: Comment on above: Method: Oral 12-31-2009 07:50-0500 Body weight 92.08 kg Mer Solorio RN [facility] Work Phone: 12-31-2009 07:50-0500 BP Diastolic 86 mm[Hg] Mer Solorio RN [facility] Work Phone: Comment on above: Patient Position: Sitting; Cuff Location : Left Arm; Cuff Size: Standard 12-31-2009 07:50-0500 BP Systolic 138 mm[Hg] Mer Solorio RN [facility] Work Phone: Comment on above: Patient Position: Sitting; Cuff Location : Left Arm; Cuff Size: Standard 12-31-2009 07:50-0500 Pulse (Heart Rate) 68 /min Mer Solorio RN [facility] Work Phone: Comment on above: Pattern: Regular 12-31-2009 07:50-0500 Respiratory Rate 16 /min Mer Solorio RN [facility] Work Phone: Comment on above: Pattern: Unlabored 12-31-2009 07:50-0500 Weight 92.08 kg Leatha Morrison [facility] Work Phone: 07-21-2009 10:51-0400 BP Diastolic 84 mm[Hg] RACHEL Bartlett [facility] Work Phone: Comment on above: Patient Position: Sitting; Cuff Location : Left Arm; Cuff Size: Large 07-21-2009 10:51-0400 BP Systolic 134 mm[Hg] RACHEL Bartlett [facility] Work Phone: Comment on above: Patient Position: Sitting; Cuff Location : Left Arm; Cuff Size: Large 07-21-2009 10:51-0400 Pulse (Heart Rate) 78 /min RACHEL Bartlett [facility] Work Phone: Comment on above: Pattern: Regular 07-21-2009 10:51-0400 Respiratory Rate 18 /min RACHEL Bartlett [facility] Work Phone: Comment on above: Pattern: Unlabored 07-14-2009 10:04-0400 BP Diastolic 84 mm[Hg] RACHEL Bartlett [facility] Work Phone: Comment on above: Patient Position: Sitting; Cuff Location : Left Arm; Cuff Size: Large 07-14-2009 10:04-0400 BP Systolic 140 mm[Hg] RACHEL Bartlett [facility] Work Phone: Comment on above: Patient Position: Sitting; Cuff Location : Left Arm; Cuff Size: Large 07-14-2009 10:04-0400 Pulse (Heart Rate) 74 /min RACHEL Bartlett [facility] Work Phone: Comment on above: Pattern: Regular 07-14-2009 10:04-0400 Respiratory Rate 18 /min RACHEL Bartlett [facility] Work Phone: Comment on above: Pattern: Unlabored 11-04-2008 08:55-0400 BMI (Body Mass Index) 35.2 kg/m2 Deedee Karimi [facility] Internal Medicine Work Phone: 11-04-2008 08:55-0400 Body weight 93.02 kg Deedee Samuel [facility] Work Phone: 11-04-2008 08:55-0400 BP Diastolic 90 mm[Hg] Deedee [facility] Work Phone: Comment on above: Patient Position: Supine; Cuff Location: Left Arm; Cuff Size: Standard 11-04-2008 08:55-0400 BP Systolic 158 mm[Hg] Deedee [facility] Work Phone: Comment on above: Patient Position: Supine; Cuff Location: Left Arm; Cuff Size: Standard 11-04-2008 08:55-0400 BSA (Body Surface Area) 1.98 m2 Deedee Samuel [facility] Work Phone: 11-04-2008 08:55-0400 Head Circumference 0 cm [facility] Work Phone: 11-04-2008 08:55-0400 Head Occipital-frontal circumference 0 cm Deedee Samuel [facility]; [facility] Work Phone: 11-04-2008 08:55-0400 Height 162.56 cm Deedee [facility] Work Phone: 11-04-2008 08:55-0400 Pulse (Heart Rate) 80 /min Deedee [facility] Work Phone: Comment on above: Pattern: Regular 11-04-2008 08:55-0400 Respiratory Rate 16 /min Deedee [facility] Work Phone: Comment on above: Pattern: Unlabored 11-04-2008 08:55-0400 Weight 93.02 kg Leatha Morrison [facility] Work Phone: 10-29-2008 08:05-0400 Body Temperature 98.3 [degF] Jodi Bourne RN [facility] Work Phone: Comment on above: Method: Oral 10-29-2008 08:05-0400 Body weight 0 kg Jodi Bourne RN [facility] Work Phone: 10-29-2008 08:05-0400 BP Diastolic 90 mm[Hg] Jodi Bourne RN [facility] Work Phone: Comment on above: Patient Position: Sitting; Cuff Location : Right Arm; Cuff Size: Standard 10-29-2008 08:05-0400 BP Systolic 122 mm[Hg] Jodi Bourne RN [facility] Work Phone: Comment on above: Patient Position: Sitting; Cuff Location : Right Arm; Cuff Size: Standard 10-29-2008 08:05-0400 Head [facility]umference 0 [facility] Work Phone: 10-29-2008 08:05-0400 Head Occipital-frontal circumference 0 cm Jodi Bourne RN [facility]; [facility] Work Phone: 10-29-2008 08:05-0400 Height 0 cm Jodi Bourne RN [facility] Work Phone: 10-29-2008 08:05-0400 Pulse (Heart Rate) 72 /min Jodi Bourne RN [facility] Work Phone: Comment on above: Pattern: Regular 10-29-2008 08:05-0400 Respiratory Rate 20 /min Jodi Bourne RN [facility] Work Phone: Comment on above: Pattern: Unlabored 10-29-2008 08:05-0400 Weight 0 kg Leatha Morrison [facility] Work Phone: 07-10-2008 07:38-0400 Body Temperature 97.7 [degF] RACHEL Bartlett LPN [facility] Work Phone: Comment on above: Method: Oral 07-10-2008 07:38-0400 Body weight 0 kg RACHEL Bartlett LPN [facility] Work Phone: 07-10-2008 07:38-0400 BP Diastolic 78 mm[Hg] RACHEL Bartlett LPN [facility] Work Phone: Comment on above: Patient Position: Sitting; Cuff Location : Left Arm; Cuff Size: Standard 07-10-2008 07:38-0400 BP Systolic 122 mm[Hg] RACHEL Bartlett LPN [facility] Work Phone: Comment on above: Patient Position: Sitting; Cuff Location : Left Arm; Cuff Size: Standard 07-10-2008 07:38-0400 Head Circumference 0 cm Leatha Morrison [facility] Work Phone: 07-10-2008 07:38-0400 Head Occipital-frontal circumference 0 cm RACHEL Bartlett FAVIAN [facility]; [facility] Work Phone: 07-10-2008 07:38-0400 Height 0 cm RACHEL Bartlett FAVIAN [facility] Work Phone: 07-10-2008 07:38-0400 Pulse (Heart Rate) 70 /min RACHEL Bartlett FAVIAN [facility] Work Phone: Comment on above: Pattern: Regular 07-10-2008 07:38-0400 Respiratory Rate 16 /min RACHEL Bartlett FAVIAN [facility] Work Phone: Comment on above: Pattern: Unlabored 07-10-2008 07:38-0400 Weight 0 kg Leatha Morrison [facility] Work Phone: 05-12-2008 11:08-0400 Body Temperature 95.4 [degF] Bonnie Moise RN [facility] Work Phone: Comment on above: Method: Oral 05-12-2008 11:08-0400 Body weight 90.98 kg Bonnie Moise RN [facility] Work Phone: 05-12-2008 11:08-0400 BP Diastolic 80 mm[Hg] Bonnie Moise RN [facility] Work Phone: Comment on above: Patient Position: Sitting; Cuff Location : Left Arm; Cuff Size: Large 05-12-2008 11:08-0400 BP Systolic 122 mm[Hg] Bonnie Mosie RN [facility] Work Phone: Comment on above: Patient Position: Sitting; Cuff Location : Left Arm; Cuff Size: Large 05-12-2008 11:08-0400 Head Circumference 0 cm Leatha Morrison [facility] Work Phone: 05-12-2008 11:08-0400 Head Occipital-frontal circumference 0 cm Bonnie Moise RN [facility]; [facility] Work Phone: 05-12-2008 11:08-0400 Height 0 cm Bonnie Moise RN [facility] Work Phone: 05-12-2008 11:08-0400 Pulse (Heart Rate) 80 /min Bonnie Moise RN [facility] Work Phone: Comment on above: Pattern: Regular 05-12-2008 11:08-0400 Respiratory Rate 20 /min Bonnie Moise RN [facility] Work Phone: Comment on above: Pattern: Unlabored 05-12-2008 11:08-0400 Weight 90.98 kg Leatha Morrison [facility] Work Phone: 04-24-2008 10:43-0500 Body weight 0 kg RACHEL Dhruv BALLESTEROS [facility] Work Phone: 04-24-2008 10:43-0500 BP Diastolic 84 mm[Hg] RACHELBERNADETTE Bartlett LPN [facility] Work Phone: Comment on above: Patient Position: Sitting; Cuff Location : Left Arm; Cuff Size: Large 04-24-2008 10:43-0500 BP Systolic 126 mm[Hg] RACHELBERNADETTE Bartlett LPN [facility] Work Phone: Comment on above: Patient Position: Sitting; Cuff Location : Left Arm; Cuff Size: Large 04-24-2008 10:43-0500 Head Circumference 0 cm Leatha Morrison [facility] Work Phone: 04-24-2008 10:43-0500 Head Occipital-frontal circumference 0 cm RACHELBERNADETTE Bartlett LPN [facility]; [facility] Work Phone: 04-24-2008 10:43-0500 Height 0 cm RACHELBERNADETTE Bartlett LPN [facility] Work Phone: 04-24-2008 10:43-0500 Pulse (Heart Rate) 76 /min RACHELBERNADETTE Bartlett LPN [facility] Work Phone: Comment on above: Pattern: Regular 04-24-2008 10:43-0500 Respiratory Rate 16 /min RACHELBERNADETTE Bartlett LPN [facility] Work Phone: Comment on above: Pattern: Unlabored 04-24-2008 10:43-0500 Weight 0 kg Leatha Morrison [facility] Medicine Work Phone: 12-10-2007 11:13-0400 Body Temperature 98.3 [degF] Lizzy Bolaños [facility] Medicine Work Phone: Comment on above: Method: Oral 12-10-2007 11:13-0400 Body weight 90.98 kg Lizzy Bolaños [facility] Work Phone: 12-10-2007 11:13-0400 BP Diastolic 92 mm[Hg] Lizzy Bolaños [facility] Work Phone: Comment on above: Patient Position: Sitting; Cuff Location : Left Arm; Cuff Size: Standard 12-10-2007 11:13-0400 BP Systolic 136 mm[Hg] Lizzy Bolaños [facility] Work Phone: Comment on above: Patient Position: Sitting; Cuff Location : Left Arm; Cuff Size: Standard 12-10-2007 11:13-0400 Head Circumference 0 cm Leatha Morrison [facility] Medicine Work Phone: 12-10-2007 11:13-0400 Head Occipital-frontal circumference 0 cm Lizzy Bolaños [facility]; [facility] Work Phone: 12-10-2007 11:13-0400 Height 0 cm Lizzy Bolaños [facility] Work Phone: 12-10-2007 11:13-0400 Pulse (Heart Rate) 82 /min Lizzy Bolaños [facility] Work Phone: Comment on above: Pattern: Regular 12-10-2007 11:13-0400 Respiratory Rate 18 /min Lizzy Bolaños [facility] Work Phone: Comment on above: Pattern: Unlabored 12-10-2007 11:13-0400 Weight 90.98 kg Leatha Morrison [facility] Work Phone: 08-08-2007 07:02-0400 Body weight 94.09 kg Deedee Samuel [facility] Medicine Work Phone: 08-08-2007 07:02-0400 BP Diastolic 78 mm[Hg] Deedee Samuel [facility] Work Phone: Comment on above: Patient Position: Sitting; Cuff Location : Left Arm; Cuff Size: Standard 08-08-2007 07:02-0400 BP Systolic 114 mm[Hg] Deedee [facility] Work Phone: Comment on above: Patient Position: Sitting; Cuff Location : Left Arm; Cuff Size: Standard 08-08-2007 07:02-0400 Head Circumference 0 [facility] Work Phone: 08-08-2007 07:02-0400 Head Occipital-frontal circumference 0 cm Deedee [facility] Internal Medicine; [facility] Work Phone: 08-08-2007 07:02-[address] [facility] Internal Medicine Work Phone: 08-08-2007 07:02-0400 Pulse (Heart Rate) 80 /min [facility] Medicine Work Phone: Comment on above: Pattern: Regular 08-08-2007 07:02-0400 Respiratory Rate 16 /min [facility] Work Phone: Comment on above: Pattern: Unlabored 08-08-2007 07:02-0400 Weight 94.09 kg [facility] Work Phone: 05-01-2007 08:18-0400 Body Temperature 98.2 [degF] RACHEL Bartlett [facility] Medicine Work Phone: Comment on above: Method: Oral 05-01-2007 08:18-0400 Body weight 0 kg RACHEL Bartlett [facility] Medicine Work Phone: 05-01-2007 08:18-0400 BP Diastolic 78 mm[Hg] RACHEL Dhruv [facility] Work Phone: Comment on above: Patient Position: Sitting; Cuff Location : Left Arm; Cuff Size: Standard 05-01-2007 08:18-0400 BP Systolic 122 mm[Hg] RACHEL Dhruv [facility] Work Phone: Comment on above: Patient Position: Sitting; Cuff Location : Left Arm; Cuff Size: Standard 05-01-2007 08:18-0400 Head Circumference 0 cm [facility] Medicine Work Phone: 05-01-2007 08:18-0400 Head Occipital-frontal circumference 0 cm RACHEL Bartlett FAVIAN [facility]; [facility] Work Phone: 05-01-2007 08:18-0400 Height 0 cm RACHEL Bartlett FAVIAN [facility] Work Phone: 05-01-2007 08:18-0400 Pulse (Heart Rate) 72 /min RACHEL Bartlett LPN [facility] Work Phone: Comment on above: Pattern: Regular 05-01-2007 08:18-0400 Respiratory Rate 18 /min RACHEL Bartlett LPN [facility] Work Phone: Comment on above: Pattern: Unlabored 05-01-2007 08:18-0400 Weight 0 kg Leatha Morrison [facility] Work Phone: 04-18-2007 08:13-0500 Body weight 94.09 kg Bonnie Moise RN [facility] Work Phone: 04-18-2007 08:13-0500 BP Diastolic 84 mm[Hg] Bonnie Moise RN [facility] Work Phone: Comment on above: Patient Position: Sitting; Cuff Location : Left Arm; Cuff Size: Large 04-18-2007 08:13-0500 BP Systolic 128 mm[Hg] Bonnie Moise RN [facility] Work Phone: Comment on above: Patient Position: Sitting; Cuff Location : Left Arm; Cuff Size: Large 04-18-2007 08:13-0500 Head Circumference 0 cm Leatha Doshialise [facility] Work Phone: 04-18-2007 08:13-0500 Head Occipital-frontal circumference 0 cm Bonnie Moise RN [facility]; [facility] Work Phone: 04-18-2007 08:13-0500 Height 0 cm Bonnie Moise RN [facility] Work Phone: 04-18-2007 08:13-0500 Pulse (Heart Rate) 64 /min Bonnie Moise RN [facility] Work Phone: Comment on above: Pattern: Regular 04-18-2007 08:13-0500 Respiratory Rate 20 /min Bonnie Moise RN [facility] Work Phone: Comment on above: Pattern: Unlabored 04-18-2007 08:13-0500 Weight 94.09 kg Leatha Morrison [facility] Work Phone: 01-23-2007 08:18-0500 Body Temperature 98.6 [degF] RAHCEL Bartlett FAVIAN [facility] Work Phone: Comment on above: Method: Oral 01-23-2007 08:18-0500 Body weight 0 kg RACHEL Bartlett FAVIAN [facility] Work Phone: 01-23-2007 08:18-0500 BP Diastolic 80 mm[Hg] RACHEL Bartlett ASSISTANT ART DIRECTOR [facility] Work Phone: Comment on above: Patient Position: Sitting; Cuff Location : Left Arm; Cuff Size: Standard 01-23-2007 08:18-0500 BP Systolic 124 mm[Hg] RACHEL Bartlett FAVIAN [facility] Work Phone: Comment on above: Patient Position: Sitting; Cuff Location : Left Arm; Cuff Size: Standard 01-23-2007 08:18-0500 Head Circumference 0 cm Leatha Morrison [facility] Work Phone: 01-23-2007 08:18-0500 Head Occipital-frontal circumference 0 cm RACHEL Bartlett FAVIAN [facility]; [facility] Work Phone: 01-23-2007 08:18-0500 Height 0 cm RACHEL Bartlett FAVIAN [facility] Work Phone: 01-23-2007 08:18-0500 Pulse (Heart Rate) 72 /min RACHEL Bartlett ASSISTANT ART DIRECTOR [facility] Work Phone: Comment on above: Pattern: Regular 01-23-2007 08:18-0500 Respiratory Rate 18 /min RACHEL Bartlett FAVIAN [facility] Work Phone: Comment on above: Pattern: Unlabored 01-23-2007 08:18-0500 Weight 0 kg Leatha Morrison [facility] Work Phone: 12-21-2006 09:15-0400 Body Temperature 97.7 [degF] RACHEL Bartlett LPN [facility] Work Phone: Comment on above: Method: Oral 12-21-2006 09:15-0400 Body weight 0 kg RACHEL Bartlett LPN [facility] Work Phone: 12-21-2006 09:15-0400 BP Diastolic 90 mm[Hg] RACHEL Bartlett LPN [facility] Work Phone: Comment on above: Patient Position: Sitting; Cuff Location : Left Arm; Cuff Size: Standard 12-21-2006 09:15-0400 BP Systolic 134 mm[Hg] RACHEL Bartlett LPN [facility] Work Phone: Comment on above: Patient Position: Sitting; Cuff Location : Left Arm; Cuff Size: Standard 12-21-2006 09:15-0400 Head Circumference 0 cm Leatha Morrison [facility] Work Phone: 12-21-2006 09:15-0400 Head Occipital-frontal circumference 0 cm RACHEL Bartlett LPN [facility]; [facility] Work Phone: 12-21-2006 09:15-0400 Height 0 cm RACHEL Bartlett LPN [facility] Work Phone: 12-21-2006 09:15-0400 Pulse (Heart Rate) 74 /min RACHEL Bartlett LPN [facility] Work Phone: Comment on above: Pattern: Regular 12-21-2006 09:15-0400 Pulse Oximetry 97 % Leatha Morrison [facility] Work Phone: Comment on above: Room air 12-21-2006 09:15-0400 Respiratory Rate 20 /min RACHEL Bartlett LPN [facility] Work Phone: Comment on above: Pattern: Unlabored 12-21-2006 09:15-0400 SaO2% (BldA) [Mass fraction] 97 % RACHEL Bartlett LPN [facility]; [facility] Work Phone: 12-21-2006 09:15-0400 Weight 0 kg Leatha Morrison [facility] Work Phone: 09-05-2006 11:40-0400 Body Temperature 97.6 [degF] RACHEL Bartlett LPN [facility] Work Phone: Comment on above: Method: Oral 09-05-2006 11:40-0400 Body weight 0 kg RACHEL Bartlett LPN [facility] Work Phone: 09-05-2006 11:40-0400 BP Diastolic 80 mm[Hg] RACHEL Bartlett LPN [facility] Work Phone: Comment on above: Patient Position: Sitting; Cuff Location : Left Arm; Cuff Size: Standard 09-05-2006 11:40-0400 BP Systolic 124 mm[Hg] RACHEL Bartlett LPN [facility] Work Phone: Comment on above: Patient Position: Sitting; Cuff Location : Left Arm; Cuff Size: Standard 09-05-2006 11:40-0400 Head Circumference 0 cm Leatha Morrison [facility] Work Phone: 09-05-2006 11:40-0400 Head Occipital-frontal circumference 0 cm RACHEL Bartlett LPN [facility]; [facility] Work Phone: 09-05-2006 11:40-0400 Height 0 cm RACHEL Bartlett LPN [facility] Work Phone: 09-05-2006 11:40-0400 Pulse (Heart Rate) 60 /min RACHEL Bartlett LPN [facility] Work Phone: Comment on above: Pattern: Regular 09-05-2006 11:40-0400 Respiratory Rate 20 /min RACHEL Bartlett LPN [facility] Work Phone: Comment on above: Pattern: Unlabored 09-05-2006 11:40-0400 Weight 0 kg Leatha Morrison [facility] Work Phone: 10-27-2005 11:01-0400 Body weight 0 kg Leatha Morrison [facility] Work Phone: 10-27-2005 11:01-0400 BP Diastolic 82 mm[Hg] Leatha Morrison [facility] Work Phone: Comment on above: Patient Position: Sitting; Cuff Location : Left Arm; Cuff Size: Standard 10-27-2005 11:01-0400 BP Systolic 148 mm[Hg] Leatha Morrison [facility] Work Phone: Comment on above: Patient Position: Sitting; Cuff Location : Left Arm; Cuff Size: Standard 10-27-2005 11:01-0400 Head Circumference 0 cm Leatha Morrison [facility] Work Phone: 10-27-2005 11:01-0400 Head Occipital-frontal circumference 0 cm Leatha Morrison [employer] Work Phone: [facility]; [facility] Work Phone: 10-27-2005 11:01-0400 Height 0 cm Leatha Morrison [facility] Work Phone: 10-27-2005 11:01-0400 Pulse (Heart Rate) 54 /min Leatha Morrison [facility] Work Phone: Comment on above: Pattern: Regular 10-27-2005 11:01-0400 Weight 0 kg Leatha Morrison [facility] Work Phone: Encounters Encounter Date Encounter Type Care Provider Facility Start: 07-02-2024 End: 07-02-2024 ambulatory Mayra Escobedo ELECTRICAL PROSPECTOR-C Work Phone: [facility] Work Phone: Start: 07-02-2024 End: 07-02-2024 Patient encounter procedure Mayra Gregg ELECTRICAL PROSPECTOR-C -Laboratory Work Phone: Start: 07-02-2024 End: 07-02-2024 ambulatory Mayra Escobedo Facility:[facility] Start: 06-11-2024 End: 06-11-2024 Patient encounter procedure Mayra Escobedo ELECTRICAL PROSPECTOR-C -Laboratory Work Phone: Start: 06-11-2024 End: 06-11-2024 ambulatory Mayra Escobedo Facility:[facility] Start: 04-26-2024 End: 04-26-[address] Jose Miguel Eng MD -[facility] Work Phone: Start: 04-26-2024 End: 04-26-2024 ambulatory Jose Miguel Eng [place] [place]: 04-02-2024 Non-patient / Non-visit Dr. Moreno gaviria DO -[facility] Work Phone: Start: 04-02-2024 ambulatory Mayra Gregg Facility :[facility] Start: 04-02-2024 Non-patient / Non-visit Dr. Emily Lopez MD -[facility] Start: 04-01-2024 End: 04-02-2024 ambulatory Mayra Gregg Facility:[facility] Start: 04-01-2024 End: 04-02-2024 Evaluation and management of inpatient Dr. Moreno Moody DO -[facility] Work Phone: Start: 03-14-2024 End: 03-14-[address] Chapo Yates MD -[facility] Work Phone: Start: 03-14-2024 End: 03-14-2024 ambulatory Mayra Escobedo Facility:[facility] Start: 03-11-2024 End: 03-11-[address] Chapo Yates MD -[facility] Work Phone: Start: 03-11-2024 End: 03-11-2024 ambulatory Chapo Yates Facility:[facility] Start: 03-04-2024 End: 03-04-[address] Chapo Yates MD -[facility] Work Phone: Start: 03-04-2024 End: 03-04-2024 ambulatory Chapo Yates Facility:[facility] Start: 02-26-2024 End: 02-26-2024 ambulatory Mayra Gregg Facility:[facility] Start: 02-15-2024 End: 02-15-2024 ambulatory Mayra Gregg Facility:[facility] Start: 02-10-2024 End: 02-10-2024 ambulatory Mayra Gregg Facility:[facility] Start: 02-08-2024 End: 02-08-2024 ambulatory Mayra Gregg Facility:[facility] Start: 01-17-2024 End: 01-17-2024 ambulatory Mayra Gregg Facility:[facility] Start: 12-25-2023 End: 12-25-2023 ambulatory Brennon Ramirez Facility:[facility] Start: 11-20-2023 ambulatory Health Risk Assessment Facility:[facility] Start: 11-20-2023 End: 11-20-2023 ambulatory Alanna Nieto Facility:[facility] Start: 08-23-2023 End: 08-23-2023 ambulatory Levi OLSEN Facility:[facility] Start: 06-14-2023 End: 06-15-2023 Evaluation and management of inpatient [facility]-Medical Surgical 3 Work Phone: Start: 06-03-2023 End: 06-03-2023 ambulatory [facility] Work Phone: Start: 06-03-2023 End: 06-03-2023 Patient encounter procedure [facility]-Laboratory Work Phone: Start: 06-02-2023 End: 06-02-2023 ambulatory [facility] Work Phone: Start: 06-02-2023 End: 06-02-2023 Patient encounter procedure [facility]-Laboratory Work Phone: Start: 01-06-2023 End: 01-06-2023 ambulatory [facility] Work Phone: Start: 01-06-2023 End: 01-06-2023 Patient encounter procedure [facility]-Outpatient Pavilion Ultrasound Work Phone: Start: 12-27-2022 End: 12-27-2022 ambulatory [facility] Work Phone: Start: 12-27-2022 End: 12-27-2022 Patient encounter procedure [facility]-Outpatient Breast Imaging Work Phone: Start: 12-16-2022 End: 12-16-2022 Mayra Escobedo CNP Work Phone: [facility] Start: 12-14-2022 End: 12-20-2022 Office consultation new/estab patient 40 min Mayra Escobedo CNP Work Phone: [facility] Start: 12-14-2022 End: 12-20-2022 Patient encounter procedure Yuki Fischer LPN [facility]; [facility] Work Phone: Start: 12-14-2022 Patient encounter procedure Mayra Escobedo CNP Work Phone: [facility]; [facility] Work Phone: Start: 12-14-2022 Mayra Escobedo CNP Work Phone: [facility] Start: 12-09-2022 Registered Referred [facility] Start: 10-31-2022 Mayra Escobedo CNP Work Phone: [facility] Start: 10-31-2022 End: 11-01-2022 Office outpatient visit 15 minutes Mayra Escobedo CNP Work Phone: [facility] Start: 10-25-2022 End: 10-25-2022 Emergency department patient visit [facility]-Emergency Department Work Phone: Start: 09-05-2022 End: 09-05-2022 ambulatory [facility] Work Phone: Start: 09-05-2022 End: 09-05-2022 Patient encounter procedure [facility]-Radiology, [facility] Work Phone: Start: 07-01-2022 ambulatory Mayra Escobedo CNP [facility] Start: 07-01-2022 End: 07-01-2022 Patient encounter procedure [facility]-Laboratory, [place] Work Phone: Start: 07-01-2022 End: 07-01-2022 Office outpatient visit 15 minutes Mayra Escobedo CNP Work Phone: [facility] Start: 06-22-2022 End: 06-22-2022 Mayra Escobedo CNP Work Phone: [facility] Start: 06-14-2022 End: 06-15-2022 Office outpatient visit 15 minutes Mayra Escobedo CNP Work Phone: [facility] Start: 03-28-2022 End: 03-31-2022 Office outpatient visit 15 minutes Mayra Escobedo CNP Work Phone: [facility] Start: 03-28-2022 Mayra Gregg RAPP Work Phone: [facility] Start: 03-16-2022 End: 03-16-2022 Mayra Escobedo LOIN TRIMMER Work Phone: [facility] Start: 01-19-2022 End: 01-19-2022 Leatha Morrison Work Phone: [facility] Start: 12-14-2021 End: 12-21-2021 Office outpatient visit 25 minutes Leatha Morrison Work Phone: [facility] Start: 12-14-2021 End: 12-21-2021 Patient encounter procedure Leatha Morrison Work Phone: [facility] Start: 12-14-2021 Patient encounter procedure Radha Dumont LPN [facility]; [facility] Work Phone: Start: 12-14-2021 Leatha Morrison Work Phone: [facility] Start: 07-22-2021 End: 07-22-2021 Emergency department patient visit [facility]-Emergency Department Start: 04-12-2021 End: 04-12-2021 Discharged Recurring [facility]-Physical Therapy Start: 04-06-2021 End: 04-06-2021 Office outpatient visit 40 minutes Leatha Dawkinsalise RAPP Work Phone: [facility] Start: 01-11-2021 End: 01-11-2021 Office outpatient visit 10 minutes Leatha Dawkinsalise RAPP Work Phone: [facility] Start: 11-09-2020 End: 11-09-2020 Patient encounter procedure Leatha Morrison Work Phone: [facility] Start: 11-09-2020 End: 11-09-2020 Periodic preventive med est patient 65yrs& older Leatha Dawkinsalise RAPP Work Phone: [facility] Start: 10-27-2020 End: 10-27-2020 Leatha Dawkinsalise RAPP Work Phone: [facility] Start: 10-27-2020 End: 10-27-2020 Office outpatient visit 10 minutes Leatha Morrison LOIN TRIMMER Work Phone: [facility] Start: 10-20-2020 End: 10-20-2020 Office outpatient visit 15 minutes Leatha Morrison LOIN TRIMMER Work Phone: [facility] Start: 03-13-2020 End: 03-13-2020 Office outpatient visit 10 minutes Leatha Morrison [facility] Start: 09-25-2019 End: 09-25-2019 Patient encounter status Leatha Morrison Work Phone: [facility] Start: 09-25-2019 End: 09-25-2019 Periodic preventive med est patient 65yrs& older Leatha Morrison [facility] Start: 08-14-2019 End: 08-14-2019 Annotation/Addendum Leatha Morrison [facility] Start: 08-14-2019 End: 08-14-2019 Leatha Morrison LOIN TRIMMER Work Phone: [facility] Start: 08-13-2019 End: 08-13-2019 Annotation/Addendum Leatha Morrison [facility] Start: 08-13-2019 End: 08-13-2019 Leatha Morrison LOIN TRIMMER Work Phone: [facility] Start: 08-13-2019 End: 08-13-2019 Office outpatient visit 25 minutes Leatha Morrison [facility] Start: 07-26-2019 End: 07-26-2019 Annotation/Addendum Leatha Morrison [facility] Start: 07-26-2019 End: 07-26-2019 Leatha Morrison LOIN TRIMMER Work Phone: [facility] Start: 04-01-2019 End: 04-01-2019 Phone Encounter Leatha Morrison [facility] Start: 04-01-2019 End: 04-01-2019 Leatha Morrison LOIN TRIMMER Work Phone: [facility] Start: 04-01-2019 End: 04-01-2019 Annotation/Addendum Leatha Morrison [facility] Start: 04-01-2019 End: 04-01-2019 Leatha Morrison LOIN TRIMMER Work Phone: [facility] Start: 11-12-2018 End: 11-12-2018 Lab Order Leatha Morrison [facility] Start: 11-12-2018 End: 11-12-2018 Leatha Morrison LOIN TRIMMER Work Phone: [facility] Start: 11-05-2018 End: 11-05-2018 Office outpatient visit 25 minutes Leatha Morrison [facility] Start: 11-05-2018 Review Leatha Morrison Trev [facility]acke [facility] Start: 10-29-2018 End: 10-29-2018 Annotation/Addendum Leatha Morrison [facility] Start: 10-29-2018 End: 10-29-2018 Leatha Morrison LOIN TRIMMER Work Phone: [facility] Start: 10-25-2018 End: 10-25-2018 Office outpatient visit 15 minutes Leatha Morrison [facility] Start: 07-20-2018 End: 07-20-2018 Patient encounter procedure Leatha Morrison [facility] Start: 07-20-2018 End: 07-20-2018 Leatha Morrison LOIN TRIMMER Work Phone: [facility] Start: 07-18-2018 End: 07-18-2018 Phone Encounter Leatha Morrison [facility] Start: 07-18-2018 End: 07-18-2018 Leatha Morrison LOIN TRIMMER Work Phone: [facility] Start: 06-19-2018 End: 06-19-2018 Office outpatient visit 15 minutes Leatha Morrison [facility] Start: 11-28-2017 End: 11-28-2017 Phone Encounter Leatha Morrison [facility] Start: 11-28-2017 End: 11-28-2017 Leatha Morrison LOIN TRIMMER Work Phone: [facility] Start: 11-15-2017 End: 11-15-2017 Patient encounter status Leatha Morrison Work Phone: [facility] Start: 11-15-2017 End: 11-15-2017 Periodic preventive med est patient 65yrs& older Leatha Morrison [facility] Start: 12-08-2016 End: 12-12-2016 Annotation/Addendum Leatha Morrison [facility] Start: 12-08-2016 End: 12-12-2016 Leatha Morrison LOIN TRIMMER Work Phone: [facility] Start: 11-15-2016 End: 11-15-2016 Patient encounter status Leatha Morrison LOIN TRIMMER Work Phone: [facility]; [facility] Work Phone: Start: 11-15-2016 End: 11-15-2016 Periodic preventive med est patient 65yrs& older Leatha Maurice [facility] Start: 11-16-2015 End: 11-16-2015 Annotation/Addendum Leatha Maurice Search Specialist [facility] Medicine Start: 11-16-2015 End: 11-16-2015 Leatha Glendaelviaalise LOIN TRIMMER Work Phone: [facility] Start: 11-16-2015 End: 11-16-2015 Periodic preventive med est patient 65yrs& older Leatha Maurice [facility] Start: 09-07-2015 End: 09-07-2015 Lab Order Leatha Maurice [facility] Specialist [facility] Start: 09-07-2015 End: 09-07-2015 Leatha Morrison LOIN TRIMMER Work Phone: [facility] Start: 09-04-2015 End: 09-04-2015 Office outpatient visit 25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 [id number] : 1950 71 From: Moreno Escobedo DPT, OCS, CSCS Referring Dr.: Dr. Melissa Arnett MD Status: REG RCR Insurance: [facility] [employer] SELF PAY INSURANCE Patient's Visit Information HANNAH LIGHT is a 71 year old F referred to Physical Therapy by Dr. Melissa Arnett MD with a diagnosis of Vertigo. Date of Evaluation: 04/12/21 Physical Therapist: Moreno Escobedo DPT, [place], CSCS - Visit Plan Frequency: 1-2x /Week Duration: 2-4 Weeks Plan: 1-2x/week for 2-4 weeks as needed for... positional treatments and vestibular checks. Next session: check positional and move onto oculomotor as needed. - Subjective 2 weeks ago had insidious onset of waviness in L eye sitting at work looking at computer and got very dizzy. [place] it in both eyes at the time but went away in R eye and L eye continues. Feels dizzy and lightheaded getting up out of bed, on computer, tilting head down and it lasts short term and blurriness is there most of time. Had this 4 yrs ago when we treated her successfully with positional treatments. saw Dr. Arnett last week and got prescription for meclizine which did not help, takes it but does not help. Sleep is not great at night but has been that way for a while. 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 Activitiea re normal just miserable a lot of time. No falls, feels steady typically but less so lately as she may veer left. - Objective Walks with slight R antalgia into PT I, transfers I. Steps preferring to use L with rail I. Cervical aROM 55 ext and 60 B rotation without pain, hesitant to look up. UE AROM WFL, Sensation UE WNL to gross light touch. - R Hallpike lyla. + L hallpike lyla for quick up torsional nystagmus and asymmetrical dizzy/eye movement feeling for 10 seconds. Treated with Johnny and then much improved Hallpike lyla. - Balance/Special Test Scores Functional Gait Assessment Score: 26 % Disability: 13.3400 Dizziness Score: 50 - Goals Goal 1:: Patient feel dizzyness 100% better and back to normal Goal Time Frame: 2-4 Weeks Goal 2:: Pt feel eyes back to normal Goal Time Frame: 2-4 Weeks Goal 3:: DHI score 20 or less Goal Time Frame: 2-4 Weeks - Rehabilitation Potential Physical Therapy Diagnosis: Vertigo likely positional effecting comfort with activities Rehabilitation Potential: Fair - Anticipated Interventions Patient/Client Instruction: Educate patient on: Condition, Plan of Care For the Purpose of:: To increase ROM, To increase tolerance to activity/condition/positio n Comment: vestibular techniques and exercises. For the Purpose of:: To improve muscle performance and motor function, To increase tolerance to activity/condition/positio n Thank you for the opportunity to evaluate your patient. For Medicare and Medicare HMO plans, please review the plan of care and approve it. It will need to be FAXED BACK to us at [phone] for Medicare purposes. For Medicare only, by signing this I certify the plan of care. Please let me know if there are questions or concerns regarding this plan of care. Physician Signature: Date: <Electronically signed by Moreno Escobedo DPT, OCS, CSCS> 04/12/21 1452 CC: ELECTRICAL PROSPECTORSneha Morrisno; Dr. Melissa Arnett MD EBG Signed Leatha Morrison Work Phone: Start: 10-10-2020 End: 10-10-2020 Comments: See Note; NOTES: [address] [address] OFFICE VISIT Date of Service: 10/10/20 MR#: [id number] Acct: [id number] Name: HANNAH LIGHT Rep #: [id number] : 1950 Provider: REBECCA ordaz Age/Sex: 70/F Location[place] [facility] Status: Signed Intake Vital Signs 10/10/20 09:08 10/10/20 09:22 Height 5 ft 5 in 5 ft 2 in Weight: 185 lb BMI 33.8 BP 165/100 H Blood Pressure Location Lt brachial Position Sitting Respiration 15 Pulse 81 Pulse Source Monitor Temp 97.5 F L Temp Source Temporal Pulse Oximetry (%) 98 Oxygen Delivery Method room air Intake Visit Reasons: HIVES Allergies albuterol Allergy (Verified 10/10/20 09:24) Swelling lidocaine [From Lidoderm] Allergy (Verified 10/10/20 09:24) Hives Medications ferrous sulfate 325 mg PO BIDCM #60 tablet 06/13/13 [Rx Confirmed 10/10/20] levothyroxine 125 mcg PO DAILY@0600 #30 tablet 06/13/13 [Rx Confirmed 10/10/20] pravastatin 20 mg PO QHS #30 tablet 06/13/13 [Rx Confirmed 10/10/20] aspirin 81 mg PO DAILY@0800 07/23/13 [History Confirmed 10/10/20] levomefolate-algal oil [Deplin] 15 mg PO DAILY 07/23/13 [History Confirmed 10/10/20] sertraline 100 mg PO DAILY 07/23/13 [History Confirmed 10/10/20] amlodipine 10 mg tablet 10 mg PO DAILY #30 tab 03/14/17 [Rx Confirmed 10/10/20] adalimumab 40 mg SQ Q14D 11/04/18 [History Confirmed 10/10/20] naproxen 500 mg PO BID #14 tab 11/04/18 [Rx Confirmed 10/10/20] cetirizine 10 mg capsule 10 mg PO DAILY #30 cap 10/10/20 [Rx Confirmed 10/10/20] famotidine 20 mg tablet 20 mg PO BID #28 tab 10/10/20 [Rx Confirmed 10/10/20] prednisone 20 mg tablet 40 mg PO DAILY #10 tab 10/10/20 [Rx Confirmed 10/10/20] PFSH Medical History (Updated 10/10/20 @ 09:51 by Julienne Lares NP, REBECCA) Hypertension Family History (Updated 10/10/20 @ 09:25 by Pallavi Patel RN) Other Heart disease Social History Smoking Status: Never smoker HPI HPI Details: HANNAH LIGHT, is a 70 F who presents to the office today for hives. Patient states she began having pruritic rash on Monday or Monday and it has worsened and spread since that time. She denies any new medications. She does states she changed the scent of her detergent and suspects this may be contributing to her symptoms. She states she does not typically have sensitive skin or history of hives. She denies throat/tongue swelling, difficulty swallowing/breathing. Denies facial involvement. She reports her rash is significantly pruritic, no open areas. Denies other associated symptoms or complaints. ROS Const Constitutional: No body ache, chills, fatigue, fever(s) or malaise Eyes Eyes: No blurry vision, change in vision, irritation or discharge ENT ENT: No ear or mastoid pain, ear discharge, ear pressure or sore throat Resp Respiratory: No cough or shortness of breath Cardio Cardiology: No chest pain at rest, lightheadedness or palpitations Gastro GI: No abdominal pain, constipation, diarrhea, nausea/dyspepsia or vomiting Genitourinary-Female: No difficulty urinating or burning urination Musc Musculoskeletal: No joint pain, joint swelling, muscle weakness, numbness or tingling Skin Skin: Positive for rash (Generalized hives); No lesions or wounds Neuro Neurology: No behavioral changes, numbness or tingling Psych Psychiatric: No behavioral changes Endo Endocrine: No fatigue Exam Const General: cooperative, healthy appearing and no acute distress [facility] Head: normal to inspection Ears: hearing grossly normal bilaterally, external ears normal and TM's normal bilaterally Nose: external nose normal, nasal mucous membranes and turbinates normal and no nasal discharge Face and sinus: normal facial exam Mouth: oral mucosae normal Throat: posterior oropharynx normal Eyes General: appearance normal, both eyes and all related structures Resp Effort Inspection: normal respiratory effort Auscultation: Bilateral: Clear to Auscultation Cardio Rate: regular rate Rhythm: regular rhythm GI Inspection: normal to inspection Auscultation: normal bowel sounds Palpation: soft Skin Rashes: other (Generalized scattered hives, no lesions from neck upward) Neuro General: patient alert, patient awake, patient oriented x3 and moves all extremities Cranial Nerves: CN's II-XI intact bilaterally Motor: strength 5/5 throughout Extrem General: normal to inspection Psych Appearance: grossly normal Affect: normal affect Coding Level of Care Code Off vis,new,level 3 Diagnoses Hives L50.9 Assessment and Plan Assessment and Plan (1) Hives: Status: Acute Plan - Julienne Lares NP, ELECTRICAL PROSPECTOR-C: 1. Hives, allergic dermatitis-suspected secondary to recent detergent change. Rx for prednisone 40 mg daily for 5 days. Continue Zyrtec and Pepcid until symptoms resolve as well. Follow-up with PCP if worsening of symptoms. Discussed warning signs and symptoms and when to seek immediate medical attention. Plan Details Other Medications: New: prednisone 40mg daily for 5 days 40 mg (2 x 20 mg) PO DAILY 10 tabs 0RF cetirizine (Zyrtec) 10 mg PO DAILY 30 caps 0RF famotidine (Pepcid) 20 mg PO BID 28 tabs 0RF 10/10/20 0955 <Electronically signed by Julienne Lares NP ELECTRICAL PROSPECTOR-C> Date Julienne Lares NP ELECTRICAL PROSPECTOR-C Cosigner Signature: Date (if applicable) CC: Leatha Morrison [employer] Work Phone: Start: 04-01-2019 End: 04-02-2019 Hand Min 3 Views Comments: See Note; NOTES: [facility] Imaging Services [address] [place] [address] Hand Min 3 Views MR#: [id number] Acct: [id number] Name: HANNAH LIGHT Rep #: [id number] : 1950 F 69 From: Brennon Robles MD PCP: REBECCA Carty Status: REG CLI Study: Hand Min 3 Views Date of Exam: 04/01/19 Exam# [id number] Ordering Dr: Leatha Morrison STUDY: X-RAY - RIGHT HAND REASON FOR EXAM: Female, 69 years old. Right-sided pain TECHNIQUE: 3 view(s) of the hand. COMPARISON: None. FINDINGS: There is no evidence of fracture or dislocation. There are moderate degenerative changes at the base of the thumb and in the interphalangeal joints. There are no radiodense foreign bodies. RAD/Hand Min 3 Views IMPRESSION: No fracture or dislocation in the right hand. Moderate degenerative change. Electronically Signed: Brennon Robles, at 15:54 EST Tel , Service support , CC: REBECCA Morrison Forensic Artist: Signed Leatha Morrison Work Phone: Start: 11-04-2018 End: 11-04-2018 Emergency Department Summary Comments: See Note; NOTES: [facility] Medical Records Department [address] [place] [address] Emergency Department Summary 11/04/18 0949 MR#: [id number] Acct: [id number] Name: HANNAH LIGHT Rep #: [id number] : 1950 68 From: William OLSEN PCP: REBECCA Carty Status: DEP ER History of Present Illness Chief Complaint: Lower Extremity Injury Informant: Patient Onset: Yesterday Context: Gradual Onset Injury: Lifting, Twisting, Bending, Repetitive Motion Timing: Continuous Quality: Sharp Location: Lumbar, Buttock, Right Leg Current Severity: Severe Maximum Severity: Severe Worsened by: improves with: Movement, Ambulation, Bending, Lifting Relieved by: Nothing Associated Symptoms: Radiation to Right Leg Narrative: 68-year-old female presents with right leg pain. History of previous low back pain as well as a right hip and knee replacement. Has been working since yesterday with worsening pain. It really emanates in her low back and buttock radiating to her right leg. She denies trauma. She denies numbness tingling or weakness. She has not had any loss of bowel or bladder function or difficulty urinating or constipation. No fevers. No history of back surgery. She has been taking Tylenol since yesterday without improvement. Denies any other review of systems. Prior similar symptoms: Yes, With Prior Back Pain Recent Illness/Hospitalization: No Past Medical History - Allergies and Home Meds Allergies/Adverse Reactions: Allergies albuterol Allergy (Verified 11/04/18 09:22) Swelling lidocaine [From Lidoderm] Allergy (Verified 11/04/18 09:22) Burt Primary Care Physician: Leatha Morrison NP-C [Primary Care Provider] - Prior records reviewed: Yes Past Medical History: - - Hypertension, hyperlipidemia, syncope Surgical History: appendectomy, cholecystectomy Smoking Status: Never smoker Review of Systems All systems negative except as indicated General: Denies: Chills, Fever Musculoskeletal: Reports: Back pain, Extremity Pain Physical Exam Vital Signs/Narrative: Vital Signs 11/04/18 09:24 96.9 F L 76 17 164/90 H 98 Inital Vital Signs reviewed: Yes General: Well nourished, Well developed Head: Normocephalic, Atraumatic Eyes: Perrl, EOMI ENT: Moist mucous membranes Neck: Supple, Nontender Cardiovascular: Regular rate, Regular rhythm, No murmurs Respiratory: No distress, CTA bilaterally, Chest nontender Abdomen: Soft, Nontender, Nondistended, Normal bowel sounds, No masses Back: Normal Inspection, Paraspinal Tenderness, Positive SLR - Right, Negative SLR - Left. Negative for: Spinal tenderness, CVA tenderness Extremeties: Nontender, No edema Skin: Normal color, No rash Neuro: Alert, Oriented, Normal Strength, Normal Sensation, Normal Gait, Normal Reflexes Psychological: Normal affect Diagnostic/Tx/Re-eval - Medical Decision Making Patient's exam is consistent with sciatica. She does not have any signs or symptoms of cauda equina syndrome. She has not suffered any trauma. At this time do not feel that imaging is indicated. She is given 1 dose of Toradol and will be prescribed a short course of Percocet. She will continue ibuprofen at home. She will follow-up with her primary care physician. She will return here for worsening symptoms which we discussed. ED Disposition - Plan for ED Patient: Disposition: Home or Assisted Living Diagnosis: Sciatica Instructions: Understanding Sciatica Prescriptions: Naproxen [Naprosyn] 500 mg PO BID #14 tab Prescription Printed Oxycodone HCl/Acetaminophen [Percocet 5/325] 1 tab PO Q6H PRN PRN 3 Days #12 tab PRN Reason: Pain Prescription Printed Referrals: Leatha Morrison, LELAND-C [Primary Care Provider] - What to do if you have Problems For any increased pain, shortness of breath, bleeding, nausea or vomiting, chest pain, or any unexpected problems, contact your Primary Care Provider. Call [facility] Registry ([phone]) or report to the closest Emergency Room. Call 911 if necessary. 11/04/18 1022 <Electronically signed by William OLSEN> Date William OLSEN 11/04/18 1519<Electronically signed by Naty Nur MD> Cosigner Signature (If Indicated): Date Naty Nur MD CC: REBECCA Morrison Start: 12-10-2017 End: 12-10-2017 Emergency Department Summary Comments: See Note; NOTES: [facility] Medical Records Department [address] [place] [address] Emergency Department Summary 12/10/17 1516 MR#: [id number] Acct: [id number] Name: HANNAH LIGHT Rep #: [id number] : 1950 67 From: Faustino Perkins MD PCP: Leatha Morrison NP Status: DEP ER - ER Visit Summary Date of Service: 12/10/17 Chief Complaint: Right heel pain History of Present Illness: The patient is a 67 F who sees Leatha kurtz. She reports that she began having pain in her right foot yesterday. She reports is gradually worsened. It is a dull, aching pain is 10 out of 10 at worst an 8 out of 10 currently. Is worsened by walking. She is taken Tylenol and Epson salts without relief. She denies any numbness or weakness. No trauma. No fall, MVA, or change in activity. No new shoes. Physical Examination: Vitals: Stable. Afebrile. General: Well-nourished and well-developed. Head: Normocephalic atraumatic. Neck: Supple, no lymphadenopathy. No JVD. Nontender. Cardiovascular: Regular rate and rhythm. No murmurs. Respiratory: No respiratory distress. Clear to auscultation bilaterally. Abdominal: Soft, nontender, nondistended, normal bowel sounds. No guarding, rebound, or peritoneal signs. Back: Nontender. Extremities: Mild tenderness palpation over the medial side of her right calcaneus. There is no erythema or warmth to suggest infection. She is a 2+ dorsalis pedis pulse. The remainder of her foot is nontender. There is no edema. Skin: Normal color, no rash. Neurologic: Alert and oriented 3. Cranial nerves II through XII are intact. Normal strength and sensation. Psych: Normal affect. Test Results: Clinical Impression(s) from Imaging Studies Foot X-Ray 12/10/17 13:39 IMPRESSION: No acute findings Electronically Signed: Cain Johnson DO at 14:48 EDT Tel , Service support , Emergency Department Course and Treatment: Patient refused pain medications was able to ambulate without difficulty. Treatment Plan: I discussed with the patient rest, ice, elevation. She refused pain medications for home. She will be instructed to follow-up Dr. Rogers in 1 week if not improving. Return to the emergency department for any worsening symptoms. Disposition: To home in improved and stable condition. Impression: 1. Right foot pain, acute. This note was generated with zLenseation software. It may contain incorrect words, spelling, and punctuation that were not noted in review of the chart prior to signing ED Disposition - Plan for ED Patient: Disposition: Home or Assisted Living Chief Complaint: Lower Extremity Injury Instructions: ED Sprain Foot Referrals: Leatha Morrison, LELAND-C [Primary Care Provider] - Gregory Rogers DPM [STAFF PHYSICIAN] - 1 Week if not improving What to do if you have Problems For any increased pain, shortness of breath, bleeding, nausea or vomiting, chest pain, or any unexpected problems, contact your Primary Care Provider. Call [facility] ([phone]) or report to the closest Emergency Room. Call 911 if necessary. 12/10/17 1641 <Electronically signed by Faustino Perkins MD> Date Faustino Perkins MD Cosigner Signature (If Indicated): Date CC: Leatha Morrison Start: 12-10-2017 End: 12-10-2017 Foot min 3 Views Comments: See Note; NOTES: [facility] Imaging Services [address] [place] [address] Foot min 3 Views MR#: [id number] Acct: [id number] Name: HANNAH LIGHT Rep #: [id number] : 1950 F 67 From: Cain Johnson DO PCP: Leatha Morrison NP Status: REG ER Study: Foot min 3 Views Date of Exam: 12/10/17 Exam# [id number] Ordering Dr: Faustino Perkins MD STUDY: X-RAY - RIGHT FOOT CLINICAL: Female, 67 years old. Right foot and ankle pain TECHNIQUE: 3 view(s) of the foot. COMPARISON: None. FINDINGS: No acute fracture or dislocation. Prominent plantar spur. Age-related degenerative changes RAD/Foot min 3 Views IMPRESSION: No acute findings Electronically Signed: Cain JohnsonDO at 14:48 EDT Tel , Service support , CC: Leatha Morrison ELECTRICAL PROSPECTOR; Faustino Perkins MD Forensic Artist: Signed Leatha Morrison Start: 2017 End: 2017 Stress Report Comments: See Note; NOTES: [facility] [facility] [address] [facility] [facility] [place] [address] MR#: [id number] Acct: [id number] Name: HANNAH LIGHT Rep #: [id number] : 1950 67 From: Kristyn Leblanc MD Primary Care: Leatha Morrison Status: REG CLI Ordering Dr: Sex: F C Stress Test Report - Stress Test Report Stress Test Report: Date: 2017 Procedure: Pharmacologic stress nuclear imaging study Indications: Chest pain; shortness of breath/dyspnea Consent: Per the patient Procedure: The patient underwent pharmacologic (Regadenoson) evaluation with a peak heart rate of 95 bpm (62% predicted maximal heart rate) with a peak blood pressure 150/84 mmHg. The baseline ECG demonstrates underlying normal sinus rhythm. The peak pharmacologic ECG demonstrated no obvious ECG changes. There were no cardiac dysrhythmias pretest, during pharmacologic infusion, or recovery. There was no report of chest discomfort during pharmacologic infusion or recovery. The examination was discontinued secondary to completion of protocol. Impression: 1. Pharmacologic (Regadenoson) evaluation 2. Peak pharmacologic ECG with no obvious ECG changes 3. Nuclear images pending Myocardial perfusion imaging study: Technique: The patient was injected with 12.0 mCi of technetium 99m Cardiolite and subsequently rest SPECT Cardiolite nuclear imaging was obtained in the horizontal long, vertical long, and short axis views. The patient underwent pharmacologic (Regadenoson) evaluation with a peak heart rate of 95 bpm (62% predicted maximal heart rate) with a peak blood pressure 150/84 mmHg. The patient was injected with 34.5 mCi of technetium 99m Cardiolite and subsequent stress SPECT cardio light nuclear imaging was obtained in the horizontal long, vertical long, and short axis views. A gated Cardiolite study at peak stress was obtained. Interpretation: Rest and stress SPECT cardiac nuclear imaging status post realignment, normalization, and attenuation correction demonstrates the appearance of underlying relative uniform tracer uptake and myocardial perfusion appearing within normal limits. There is end systolic thickening and brightening. The gated Cardiolite study demonstrates myocardial thickening and inward wall motion. The reported LVEF is 78%. Impression: 1. Rest and stress SPECT Cardiolite nuclear imaging demonstrates the appearance of relative uniform tracer uptake and myocardial perfusion appearing within normal limits. 2. The gated Cardiolite study reports an LVEF of 78%. This note was generated with [employer] software. It may contain incorrect words, spelling, and punctuation that were not noted in checking the note before signing. 01/03/17 1644 <Electronically signed by Kristyn Leblanc MD> Date Kristyn Leblanc MD CC: Leatha Morrison; ELECTRICAL PROSPECTOR Jeffrey Leal; Kristyn Leblanc MD Date Dictated: 01/03/171638 Date Transcribed: 01/03/171638 Forensic Artist: PM Signed Leatha Morrison Start: 12-19-2016 End: 12-19-2016 Dietary management education, guidance, and counseling Tori Anthony Start: 12-19-2016 End: 12-19-2016 Documentation of current medications Tori Anthony Start: 12-19-2016 End: 12-19-2016 Follow Up Appt 6 months Jeffrey Leal ELECTRICAL PROSPECTOR Work Phone: Start: 12-19-2016 End: 12-19-2016 PFM Jeffrey Leal ELECTRICAL PROSPECTOR Work Phone: Start: 04-01-2016 End: 04-04-2016 SCREENING MAMM (CAD), BILAT Comments: See Note; NOTES: [facility] Imaging Services [address] [place] [address] Verdana 4d SCREENING MAMM (CAD), BILAT MR#: [id number] Acct: [id number] Name: KULDEEPHANNAH Rep #: [id number] : 1950 F 66 From: Jimi Morales MD PCP: Leatha Morrison Status: REG CLI Study: SCREENING MAMM (CAD), BILAT Date of Exam: 04/01/16 Exam# [id number] Ordering Dr: Leatha Morrison MAMMOGRAPHY - BILATERAL SCREENING REASON FOR EXAM: Female, 66 years old. Routine annual screening examination. PERTINENT HISTORY: Non-contributory. TECHNIQUE: Digital bilateral breast zohaib (3D mammographic acquisition) in the CC and MLO projections. 2-D mediolateral oblique (MLO) and craniocaudad (CC) views of both breasts were obtained. CAD: Full Field Digital Mammography with Computer Added Detection was performed. COMPARISON: Comparison is made with prior study dated August 24, 2004. FINDINGS: Breast Composition: There are scattered areas of fibroglandular density. There are no dominant masses or suspicious calcifications. No other significant abnormalities are identified. There has been no significant change since the prior study. HPBI/SCREENING MAMM (CAD), BILAT IMPRESSION: Stable bilateral screening mammogram. Yearly follow-up mammogram recommended. (A) ASSESSMENT CATEGORY: BIRADS Category 1: Negative. A letter regarding these results will be sent to the patient by the facility within 30 days. Approximately 10% of breast cancers are not detected by mammography. A normal mammogram should not delay biopsy of a clinically suspicious abnormality. [id number] Electronically Signed: Jimi Morales MD at 8:01 EST Tel [phone], Service support [phone], CC: Leatha Morrison Forensic Artist: Signed Leatha Morrison Work Phone: Start: 11-23-2015 End: 11-23-2015 Operative Report Comments: See Note; NOTES: [facility] Medical Records Department [address] [place] [address] Operative Report MR#: [id number] Acct: [id number] Name: HANNAH LIGHT Rep #: [id number] : 1950 65 From: Gregory Aponte MD PCP: Leatha Morrison Status: [facility] DATE OF SERVICE: 11/09/2015 DATE OF SERVICE: November 09, 2015 ATTENDING PHYSICIAN: Gregory Aponte M.D. PROCEDURE: Right knee radiofrequency ablation of the superomedial, superolateral, inferior medial genicular nerves. PREOPERATIVE DIAGNOSES: Osteoarthritis of the right knee, chronic; operative knee pain, status post total knee replacement. POSTOPERATIVE DIAGNOSES: Osteoarthritis of the right knee, chronic; operative knee pain, status post total knee replacement. ANESTHESIA: MAC. COMPLICATIONS: None. BLOOD LOSS: Minimal. PROCEDURE IN DETAIL: History and physical today was reviewed. Risks and benefits of procedure explained. The patient understood, agreed to procedure and informed consent was obtained. IV inserted per routine protocol. The patient was taken to the operating room, placed in the supine position. The right knee was prepped and draped in a sterile fashion using iodine x3. Under fluoroscopy guidance, on AP view, the right knee joint was visualized. The skin and subcutaneous tissue anesthetized with approximately 10 mL of 1% lidocaine using a 25-gauge regular needle at the vicinity of the superomedial, superolateral and inferomedial genicular nerves. Under direct visualization with fluoroscopy at approximately 2 AP views using a 21-gauge 10 cm with a 10 mm curved active tip radiofrequency ablation needle, starting on the right superomedial, ending on the right inferomedial, passing through the superolateral genicular nerves. The needle passed through the skin, the tip of the needle was maneuvered and directed towards the diaphyseal junction of each corresponding nerve. Once the tip of the needle was at the vicinity of each corresponding nerve after confirmation of AP, oblique as well as lateral view, the stylet of each needle was then removed and the radiofrequency ablation probe was then inserted. Impedance was then recorded at the superomedial to be 240; at the superolateral 237; at the inferomedial genicular nerve 239 ohm. Motor-evoked potential was then initiated to 1.5 volt without any motor response at each corresponding level. The probe was then removed intact and a total of 6 mL of preservative-free 1% lidocaine was injected in divided doses between those 3 levels. The radiofrequency ablation probe was then reinserted after confirmation of AP, oblique as well as lateral view. Radiofrequency ablation was then initiated to 80 degrees Celsius for 90-second at each level. Once concluded, the probe was then removed intact and a total of 6 mL of preservative-free 0.25% Marcaine with 40 mg of Depo-Medrol was injected in divided doses between the 3 levels. The needle was then removed intact. The patient experienced no signs or symptoms of intravascular injection. The patient experienced no paresthesia. Procedure was completed without any apparent difficulty, any complication. The patient appeared to tolerate well. Sensory as well as motor exam was unchanged from prior to the procedure. ASSESSMENT AND PLAN: This is a 65-year-old female with osteoarthritis of the right knee, chronic postoperative knee pain, status post right total knee replacement, status post right-sided radiofrequency ablation of the superomedial, superolateral, inferomedial genicular nerves. The patient will continue current medications. The patient will follow in approximately 2 weeks for re-evaluation. Gregory Aponte MD T: NTS JOB: [id number] 11/23/15 1356 <Electronically signed by Gregory Aponte MD> Date Gregory Aponte MD Cosigner Signature (If Indicated): Date CC: Leatha Morrison; Gregory Aponte Date Dictated: 11/09/15 1337 Date Transcribed: 11/09/151336 Forensic Artist: Signed Leatha Morrison Start: 11-06-2015 End: 11-09-2015 Knee 1 or 2 Views Comments: See Note; NOTES: [facility] Imaging Services [address] [place] [address] Verdana 4d Knee 1 or 2 Views MR#: [id number] Acct: [id number] Name: KULDEEPHANNAH Rep #: [id number] : 1950 F 65 From: Jimi Morales MD PCP: Leatha Morrison Status: [facility] Study: Knee 1 or 2 Views Date of Exam: 11/09/15 Exam# [id number] Ordering Dr: Gregory Aponte MD STUDY: X-RAY - RIGHT KNEE REASON FOR EXAM: Female, 65 years old. Radio frequency ablation of the right knee joint. TECHNIQUE: 5 cone-down view(s) of the knee were obtained intraoperatively. COMPARISON: None. FINDINGS: A totally replacement is seen. Radiofrequency ablation electrodes are seen overlying the distal femur and proximal tibia. RAD/Knee 1 or 2 Views IMPRESSION: Radiofrequency ablation of the knee joint intraoperatively. Electronically Signed: Jimi Morales MD at 13:21 EDT Tel [phone], Service support [phone], CC: Leatha Morrison; Gregory Aponte Forensic Artist: Kiley Zhang Work Phone: Start: 09-04-2015 End: 09-04-2015 Knee 4 or More Views Comments: See Note; NOTES: [facility] Imaging Services [address] [place] [address] Verdana 4d Knee 4 or More Views MR#: [id number] Acct: [id number] Name: HANNAH LIGHT Rep #: [id number] : 1950 F 65 From: Gregory Elizabeth MD PCP: Leatha Morrison Status: REG CLI Study: Knee 4 or More Views Date of Exam: 09/04/15 Exam# [id number] Ordering Dr: Leatha Morrison STUDY: X-RAY - RIGHT KNEE REASON FOR EXAM: Female, 65 years old. Trauma TECHNIQUE: 4 view(s) of the knee. COMPARISON: None. FINDINGS: Stable appearance to prosthesis without evidence for acute fracture or dislocation.. No definitive radiographic evidence for loosening of prosthesis. . IMPRESSION: Stable appearance to prosthesis without evidence for acute fracture Electronically Signed: Gregory Elizabeth MD at 16:11 EDT , Service support [phone], RAD/Knee 4 or More Views IMPRESSION: Stable appearance to prosthesis without evidence for acute fracture Electronically Signed: Gregory Elizabeth MD at 16:11 EDT , Service support [phone], CC: Leatha Morrison Forensic Artist: Signed Leatha Morrison Work Phone: Start: 05-26-2015 End: 05-26-2015 Operative Report Comments: See Note; NOTES: [facility] Medical Records Department [address] [place] [address] Operative Report MR#: [id number] Acct: [id number] Name: HANNAH LIGHT Rep #: [id number] : 1950 65 From: Gregory Aponte MD PCP: Melissa Arnett MD Status: [facility] DATE OF SERVICE: 05/11/2015 DATE OF SERVICE: May 11, 2015. ATTENDING PHYSICIAN: Gregory Aponte M.D. PROCEDURE: Right-sided radiofrequency ablation of the genicular nerve at the superomedial, superolateral and inferomedial genicular nerve. PREOPERATIVE DIAGNOSIS: Chronic postoperative right knee pain. POSTOPERATIVE DIAGNOSIS: Chronic postoperative right knee pain. ANESTHESIA: MAC. COMPLICATIONS: None. BLOOD LOSS: Minimal. PROCEDURE IN DETAIL: History and physical today was reviewed. Risks and benefits of procedure explained. The patient understood, agreed to procedure and informed consent was obtained. IV inserted per routine protocol. The patient was taken to the operating room, placed in the supine position. The right knee area was prepped and draped in a sterile fashion using iodine x3. Under fluoroscopy guidance, on AP view, the right knee joint was visualized. The skin and subcutaneous tissues were anesthetized with approximately 10 mL of 1% lidocaine using a 25-gauge regular needle at the vicinity of the superomedial, superolateral and inferomedial genicular nerves. Under direct visualization with fluoroscopy using a 20-gauge 10 cm with a 10 mm curved active tip radiofrequency ablation needle, the needle passed through the skin, the tip of the needle was maneuvered starting on the right superior and medial ending on the right inferomedial passing through the right superolateral genicular nerve. The needle passed through the skin, the tip of the needle was maneuvered and directed towards the diaphyseal junction of each corresponding nerve. Once the tip of the needle was at the vicinity of the genicular nerve, the stylet of each needle was then removed. The radiofrequency ablation probe was then inserted impedance was recorded at superomedial 213 ohms, at the superolateral 260 ohms, at inferomedial to 268 ohm. Motor-evoked potential was then initiated to 1.5 volt without any motor response at each corresponding level. The probe was then removed intact and a total of 6 mL of preservative-free 1% lidocaine was injected at each level in divided doses. The radiofrequency ablation probe was then inserted after confirmation of AP and oblique view. Radiofrequency ablation was then initiated to 80 degrees Celsius for 90 seconds at each level. Once concluded, the probe was then removed intact from a total of 3 mL of 0.25% Marcaine with 40 mg of Depo-Medrol was injected in divided doses between these 3 levels. The needles were then removed intact. The patient experienced no signs or symptoms of intravascular injection. The patient experienced no paresthesia. The procedure was completed without any apparent difficulty, any complication. The patient appeared to tolerate well. Motor exam was unchanged since prior to the procedure. ASSESSMENT AND PLAN: This is a 65-year-old female with chronic postoperative right knee pain status post right-sided superomedial, superolateral and inferomedial genicular nerve radiofrequency ablation. The patient will continue current medication. The patient will follow in 2 weeks for reevaluation. Gregory Aponte MD T: NTS JOB: [id number] 05/26/15 1538 <Electronically signed by Gregory Aponte MD> Date Gregory Aponte MD [facility] Signature (If Indicated): Date CC: Melissa Arnett MD; Gregory Aponte Date Dictated: 05/11/15904 Date Transcribed: 05/11/15904 Forensic Artist: Signed Leatha Morrison Start: 05-11-2015 End: 05-14-2015 Knee 1 or 2 Views Comments: See Note; NOTES: [facility] Imaging Services [address] [place] [address] Verdana 4d Knee 1 or 2 Views MR#: [id number] Acct: [id number] Name: HANNAH LIGHT Rep #: [id number] : 1950 F 65 From: Jimi Morales MD PCP: Melissa Arnett MD Status: [facility] Study: Knee 1 or 2 Views Date of Exam: 05/11/15 Exam# [id number] Ordering Dr: Gregory Aponte MD STUDY: FLUOROSCOPIC SERVICE WAS PROVIDED FOR KNEE JOINT INJECTION. REASON FOR EXAM: Female, 65 years old. Knee pain. Prior prosthetic joint. FLUOROSCOPY TIME (if supplied): (15.3 seconds) minutes/seconds TECHNIQUE: Fluoroscopic services provided for a knee injection. COMPARISON: None. FINDINGS: Fluoroscopic services provided for the injection. IMPRESSION: Fluoroscopic services provided for a knee injection. Electronically Signed: Jimi Morales MD at 15:31 EDT Tel [phone], Service support [phone], RAD/Knee 1 or 2 Views IMPRESSION: Fluoroscopic services provided for a knee injection. Electronically Signed: Jimi Morales MD at 15:31 EDT Tel [phone], Service support [phone], CC: Melissa Arnett MD; Gregory Aponte Forensic Artist: Signed Anahy Zhang Work Phone: Start: 05-11-2015 End: 05-13-2015 O.R. Fluoro for C-Arm Comments: See Note; NOTES: [facility] Imaging Services [address] [place] [address] Verdana 4d O.R. Fluoro for C-Arm MR#: [id number] Acct: [id number] Name: HANNAH LIGHT Rep #: [id number] : 1950 F 65 From: Jimi Morales MD PCP: Melissa Arnett MD Status: [facility] Study: O.R. Fluoro for C-Arm Date of Exam: 05/11/15 Exam# [id number] Ordering Dr: Gregory Aponte MD STUDY: FLUOROSCOPIC SERVICE WAS PROVIDED FOR KNEE JOINT INJECTION. REASON FOR EXAM: Female, 65 years old. Knee pain. Prior prosthetic joint. FLUOROSCOPY TIME (if supplied): (15.3 seconds) minutes/seconds TECHNIQUE: Fluoroscopic services provided for a knee injection. COMPARISON: None. FINDINGS: Fluoroscopic services provided for the injection. IMPRESSION: Fluoroscopic services provided for a knee injection. Electronically Signed: Jimi Morales MD at 15:31 EDT Tel [phone], Service support [phone], RAD/O.R. Fluoro for C-Arm IMPRESSION: Fluoroscopic services provided for a knee injection. Electronically Signed: Jimi Morales MD at 15:31 EDT Tel [phone], Service support [phone], CC: Melissa Arnett MD; Gregory Aponte Forensic Artist: Signed Anahy Zhang Work Phone: Start: 01-13-2015 End: 01-13-2015 Ecg routine ecg w/least 12 lds w/i&r [MEASUREMENTS ANALYSIS] Date of Test: 01/13/2015 13:53:24; Heart Rate: 69; ID Interval: 162; QRS: 78; QT Interval: 378; Corrected QT Interval (QTc): 393; P Wave Lincoln: 34; QRS Wave Lincoln: 19; T Wave Lincoln: 39; Blood Pressure: 122/74 [ECG DIAGNOSTIC STATEMENTS] Date of Test: 01/13/2015 13:53:24; Summary: Sinus Rhythm Low voltage in limb leads. ABNORMAL Leatha Morrison Work Phone: Start: 11-10-2014 End: 11-10-2014 Operative Report Comments: See Note; NOTES: [facility] Medical Records Department [address] [place] [address] Operative Report MR#: [id number] Acct: [id number] Name: HANNAH LIGHT Rep #: [id number] : 1950 64 From: Gregory Aponte MD PCP: Melissa Arnett MD Status: [facility] DATE OF SERVICE: 11/04/2014 DATE OF SERVICE: November 04, 2014. ATTENDING PHYSICIAN: Gregory Aponte M.D. PROCEDURE: Right-sided knee superior medial, superior lateral and inferior medial genicular nerves steroid injection under fluoroscopy guidance. PREOPERATIVE DIAGNOSES: Neuralgia, postoperative knee pain. POSTOPERATIVE DIAGNOSES: Neuralgia, postoperative knee pain. ANESTHESIA: MAC. COMPLICATIONS: None. BLOOD LOSS: Minimal. PROCEDURE IN DETAIL: History and physical today was reviewed. Risks and benefits of procedure explained. The patient understood, agreed to the procedure and informed consent was obtained, IV inserted per routine protocol. The patient was taken to the operating room placed in the supine position. The right knee area was prepped and draped in a sterile fashion using iodine x3. Under fluoroscopy guidance, on an AP view, the right knee joint was visualized. The skin and subcutaneous tissues were anesthetized with approximately 5 mL of 1% lidocaine using a 25-gauge regular needle at the vicinity of the superior medial, superior lateral and inferior medial genicular nerves. Under direct visualization with fluoroscopy, using a 22-gauge 3-1/2-inch spinal needle, starting on the superior medial ending on the inferior medial passing through the superior lateral genicular nerves needle passed through the skin. The tip of the needle was maneuvered and directed towards the diaphyseal junction of each corresponding nerve. Once the tip of the needle was at the vicinity of the genicular nerve after negative aspiration for blood, a total of 12 mL of preservative-free 0.25% Marcaine with 80 mg of Depo-Medrol injected in divided doses between these three levels. The needles were then removed intact. The patient experienced no signs or symptoms of intravascular injection. The patient experienced no paresthesia. The procedure was completed without any apparent difficulty or any complication. The patient appeared to tolerate well. ASSESSMENT AND PLAN: This is a 64-year-old female with postoperative knee pain, neuralgia status post right knee genicular nerve steroid injection under fluoroscopy guidance. The patient will continue her current medication. The patient will follow in approximately 2 weeks for possible repeat of the procedure if indicated. Gregory Aponte MD T: NTS JOB: [id number] 11/10/14 1614 <Electronically signed by Gregory Aponte MD> Date Gregory Aponte MD Cosigner Signature (If Indicated): Date CC: Melissa Arnett MD; Gregory Aponte Date Dictated: 11/04/141705 Date Transcribed: 11/04/141705 Forensic Artist: Signed Leatha Tamiko Start: 11-05-2014 End: 11-06-2014 Documentation of current medications Kristyn Leblanc MD Start: 11-05-2014 End: 11-13-2014 Hepatic function 2000 panel - Serum or Plasma Kristyn Leblanc MD Start: 11-05-2014 End: 11-13-2014 Lipid 1996 panel - Serum or Plasma Kristyn Leblanc MD Start: 11-04-2014 End: 11-05-2014 Knee 3 Views Comments: See Note; NOTES: [facility] Imaging Services [address] [place] [address] Radiology Report MR#: [id number] Acct: [id number] Name: HANNAH LIGHT Rep #: [id number] : 1950 F 64 From: Sanjeev Conn DO PCP: Melissa Arnett MD Status: [facility] Study: Knee 3 Views Date of Exam: 11/04/14 Exam# [id number] Ordering Dr: Gregory Aponte MD STUDY: X-RAY - RIGHT KNEE REASON FOR EXAM: Female, 64 years old. Right knee injection. Geniculate nerve injection. Chronic postoperative pain. TECHNIQUE: 3 intraoperative view(s) of the knee. COMPARISON: Left knee, August 12, 2014 FINDINGS: Provided images demonstrate a left total knee prosthesis. Evidence of needle tips near the medial condyle, lateral, and medial tibial plateau. Please refer to the procedural report for further details. IMPRESSION: Right knee injection in the OR. Electronically Signed: Sanjeev Conn DO at 16:47 EDT Tel [phone], Service support [phone], RAD/Knee 3 Views IMPRESSION: Right knee injection in the OR. Electronically Signed: Sanjeev Conn DO at 16:47 EDT Tel [phone], Service support [phone], CC: Melissa Arnett MD; Gregory Aponte Forensic Artist: Signed Anahy Valle Fast Work Phone: Start: 10-23-2014 End: 10-23-2014 Emergency Department Summary Comments: See Note; NOTES: [facility] Medical Records Department [address] [place] [address] Emergency Department Summary MR#: [id number] Acct: [id number] Name: HANNAH LIGHT Rep #: [id number] : 1950 64 From: Chiquita Loaiza MD PCP: Melissa Arnett MD Status: DEP ER DATE OF SERVICE: 10/18/2014 CHIEF COMPLAINT: Foreign body sensation in throat. HISTORY OF PRESENT ILLNESS: A 64-year-old female comes in reporting that she has a sensation that there is something stuck in her esophagus or her throat. This has been ongoing for the better part of a year now. She reports that she had surgeries, which were all orthopedic in nature about a year ago and ever since then she has had this problem. Initially, it was thought that it was likely secondary to irritation from being intubated. However, it has persisted. She has been tested a few times for strep throat and has tested positive and at one time, she was even treated for thrush. Ultimately, the sensation has worsened as opposed to improve and came to a head this morning when she very suddenly felt as though she could not breathe and was choking and gagging and she reports that this was very frightening, it is the worse it has ever been and she felt that she needed to come to the Emergency Room. Incidentally, she does have an appointment in less than [address] Caro, although this would be the first time she will be seeing him. PHYSICAL EXAMINATION: VITAL SIGNS: She is hypertensive. GENERAL: She appears relatively anxious, but she is not in distress. HEART: Rate is regular without murmur. ____She has no stridor, no respiratory distress, nonlabored breathing. NECK: Supple with no adenopathy, no thyromegaly, no asymmetry. Trachea is midline. Tympanic membranes are clear. Oropharynx is clear. LUNGS: Clear to auscultation bilaterally. HEENT: Mucous membranes moist. SKIN: Warm and dry. CLINICAL COURSE AND DECISION MAKING: CT soft tissue neck has been ordered and chemistry is pending. Pending the CT, providing there is no emergent pathology discovered, she will be discharged to follow up with Dr. Caro this week. The case is being turned over to the oncoming physician who will check the CT results and the patient is agreeable with this plan. Chiquita Loaiza MD T: NTS JOB: [id number] 10/23/14 2222 <Electronically signed by Chiquita Loaiza MD> Date Chiquita Loaiza MD Cosigner Signature (If Indicated): Date CC: Melissa Arnett MD Date Dictated: 10/18/1447 Date Transcribed: 10/18/14646 Forensic Artist: Signed Leatha Morrison Start: 10-18-2014 End: 10-18-2014 Emergency Department Summary Comments: See Note; NOTES: [facility] Medical Records Department [address] [place] [address] Emergency Department Summary MR#: [id number] Acct: [id number] Name: HANNAH LIGHT Rep #: [id number] : 1950 64 From: Meagan Norman MD PCP: Melissa Arnett MD Status: [facility] ER DATE OF SERVICE: 10/18/2014 ADDENDUM This patient was checked out to me by Dr. Loaiza to check CT results. CT soft tissue neck with IV contrast was obtained that shows enlargement of the palatine tonsils, which significantly narrowed the airway, mild thyroid goiter and multilevel degenerative disk disease. The patient was reevaluated. She continued to have painful swallowing, but denies any difficulty swallowing or shortness of breath. She is able to lie flat on the bed for several minutes without any difficulty breathing. She is speaking in full sentences. She was given a dose of Decadron with some improvement. She points to her anterior neck complaining of pain. She is currently on thyroid medicine. We checked a TSH, which was high at 7.67. I discussed with Dr. Caro who she has an appointment with on Monday. She is currently on Augmentin for a positive strep culture in the office. He agrees with discharge and followup in the office on Monday. Discussed with Dr. Zhang on-call for Dr. Arnett who recommends increasing her thyroid dose 1 time a week for the next 6 weeks and then rechecking her TSH at that time. The patient is agreeable to this plan. She is advised to follow up with Dr. Caro and Dr. Arnett and advised to return to the ED for any worsening symptoms. CLINICAL IMPRESSION: Odynophagia. DISPOSITION: The patient will be discharged. Meagan Norman MD T: NTS JOB: [id number] 10/18/14 1127 <Electronically signed by Meagan Norman MD> Date Meagan Norman MD Cosigner Signature (If Indicated): Date CC: Melissa Arnett MD Date Dictated: 10/18/14 1016 Date Transcribed: 10/18/14 1016 Forensic Artist: Signed Leatha Tamiko Start: 10-18-2014 End: 10-18-2014 Discharge Instruction Comments: See Note; NOTES: [facility] Medical Records Department [address] [place] [address] Discharge Instruction 10/18/14 1011 MR#: [id number] Acct: [id number] Name: HANNAH LIGHT Rep #: [id number] : 1950 64 From: Meagan Norman MD PCP: Melissa Arnett MD Status: REG ER ED Disposition - Plan for ED Patient: Chief Complaint: Foreign Body Instructions: ED Pharyngitis, Strep (Confirmed) Referrals: Melissa Arnett MD [Primary Care Provider] - Solitario Caro MD [STAFF PHYSICIAN] - Additional Instructions: For the next 6 weeks, take an additional thyroid pill on Sundays, continue regular dose rest of week. Have thyroid function repeated test in 6 weeks. What to do if you have Problems For any increased pain, shortness of breath, bleeding, nausea or vomiting, chest pain, or any unexpected problems, contact your doctor. Call [facility] ([phone]) or report to the closest Emergency Room. Call 911 if necessary. 10/18/14 1014 <Electronically signed by Meagan Norman MD> Date Meagan Norman MD Cosigner Signature (If Indicated): Date CC: Melissa Arnett MD Leatha Morrison Start: 10-18-2014 End: 10-18-2014 Soft Tissue Neck WITH Contrast Comments: See Note; NOTES: [facility] Imaging Services [address] [place] [address] CAT Scan Report MR#: [id number] Acct: [id number] Name: HANNAH LIGHT Rep #: [id number] : 1950 F 64 From: Eugenia Gibbs MD PCP: Melissa Arnett MD Status: REG ER Study: Soft Tissue Neck WITH Contrast Date of Exam: 10/18/14 Exam# [id number] Ordering Dr: Chiquita Loaiza MD STUDY: CT SOFT TISSUE NECK WITH CONTRAST REASON FOR EXAM: Female, 64 years old. Masslike sensation in the region of the thyroid with difficulty breathing. RADIATION DOSAGE (If Supplied By Facility): CTDIvol = ( 28.07 ) mGy, DLP = ( 767.69 ) mGycm TECHNIQUE: The patient was scanned in a multi-detector CT scanner. High resolution transaxial imaging was performed following intravenous administration of 75ML ml of Isovue 300 contrast material. Sagittal and coronal images were reconstructed. COMPARISON: None. FINDINGS: Normal bilateral parotid glands. Normal bilateral clinical education manager spaces. Normal bilateral parapharyngeal spaces. There is a focal atherosclerotic plaque at the left carotid bulb. The visualized internal carotid and common carotid arteries have a generally normal appearance. Normal bilateral sublingual and submandibular glands and spaces. Normal visualized nasopharynx. Normal retropharyngeal space. Normal perivertebral space. There is moderate enlargement of the palatine tonsils probably related to hyperplasia. This narrows the airway significantly at the level of the oropharynx to approximately 5.5 mm in greatest dimension. The visualized tongue, tongue base and oropharynx are normal. The visualized cervical lymph nodes (levels I-) are within normal size limits, and maintain normal morphology. There is no demonstrated solid or cystic mass lesion. There is no abnormal contrast enhancement. Normal epiglottis, bilateral vallecula and hypopharynx. The pre-epiglottic and paraglottic adipose spaces are normal. Normal visualized bilateral piriform sinuses, aryepiglottic folds, vocal cords, and arytenoid-cricoid articulations. Normal subglottic trachea. The thyroid is mildly enlarged suggesting a goiter. There is a heterogeneous enhancement of the thyroid. Normal visualized pulmonary apices. Normal visualized paranasal sinuses. There is straightening of the normal cervical lordosis. There is narrowing of the C4-5, C5-6 and C6-7 disc spaces with small endplate osteophytes consistent sequela degenerative disc disease. There is some ossification of the nuchal ligament posterior to the spinous processes of C7 and T1. IMPRESSION: 1. Enlargement of the palatine tonsils which significantly narrows the airway. 2. Mild thyroid goiter. 3. Multilevel degenerative disc disease and degenerative arthropathy of the cervical spine. Electronically Signed: Eugenia Gibbs MD at 8:26 EDT , Service support [phone], CC: Chiquita Loaiza MD; Melissa Arnett MD Forensic Artist: Signed Leatha Tamiko Start: 08-18-2014 End: 08-18-2014 Operative Report Comments: See Note; NOTES: [facility] Medical Records Department [address] [place] [address] Operative Report MR#: [id number] Acct: [id number] Name: HANNAH LIGHT Rep #: [id number] : 1950 64 From: Gregory Aponte MD PCP: Melissa Arnett MD Status: [facility] DATE OF SERVICE: 08/12/2014 DATE OF SERVICE: August 12, 2014. ATTENDING PHYSICIAN: Gregory Aponte M.D. PROCEDURE: Right knee genicular nerve steroid injection at the superior medial, superior lateral, inferior medial genicular nerves under fluoroscopy guidance. PREOPERATIVE DIAGNOSES: Chronic knee pain, chronic postoperative knee pain, neuralgia and osteoarthritis of the right knee. POSTOPERATIVE DIAGNOSES: Chronic knee pain, chronic postoperative knee pain, neuralgia and osteoarthritis of the right knee. ANESTHESIA: MAC. COMPLICATIONS: None. BLOOD LOSS: Minimal. PROCEDURE IN DETAIL: History and physical today was reviewed. Risks and benefits of procedure explained. The patient understood, agreed to our procedure and informed consent was obtained. IV inserted per routine protocol. The patient was taken to the operating room, placed in the supine position. The right knee area was prepped and draped in a sterile fashion using iodine x3. Under fluoroscopy guidance, on an AP view, the right knee joint was visualized. The skin and subcutaneous tissues were anesthetized with approximately 5 mL of 1% lidocaine using a 25-gauge regular needle at the superior medial, superior lateral and inferior medial area. Under direct visualization with fluoroscopy using a 22-gauge 3-1/2-inch spinal needle, the needle was advanced via the skin. The tip of the needle was maneuvered and directed towards the diaphyseal junction of each corresponding genicular nerve at the superior medial, superior lateral and inferior medial genicular nerves. Once the vicinity of the nerves after negative aspiration for blood, a total of 12 mL of preservative-free 0.25% Marcaine with 80 mg of Depo-Medrol injected in divided doses between these 3 levels. The patient experienced no signs or symptoms of intravascular injection. The patient experienced no paraesthesia. The procedure was completed without any apparent difficulty and any complication. The patient appeared to tolerate well. ASSESSMENT AND PLAN: This is a 64-year-old female with chronic knee pain, chronic postoperative knee pain, neuralgia status post right knee genicular nerve steroid injection under fluoroscopy guidance. The patient will continue her current medication. The patient will follow in approximately 2 weeks for possible repeat of the procedure if indicated. Gregory Aponte MD T: NTS JOB: [id number] 08/18/14 0820 <Electronically signed by Gregory Aponet MD> Date Gregory Aponte MD CC: Melissa Arnett MD; Gregory Aponte Date Dictated: 08/12/14 1438 Date Transcribed: 08/12/141437 Forensic Artist: Signed Leatha Morrsion Start: 08-12-2014 End: 08-12-2014 Knee 1 or 2 Views Comments: See Note; NOTES: [facility] Imaging Services [address] [place] [address] Radiology Report MR#: [id number] Acct: [id number] Name: HANNAH LIGHT Rep #: [id number] : 1950 F 64 From: Wallace Langston MD PCP: Melissa Arnett MD Status: [facility] Study: Knee 1 or 2 Views Date of Exam: 08/12/14 Exam# [id number] Ordering Dr: Gregory Aponte MD STUDY: X-RAY - RIGHT KNEE REASON FOR EXAM: Female, 64 years old. SURGERY TECHNIQUE: 3 view(s) of the knee. COMPARISON: None. FINDINGS: Total right knee arthroplasty. First image demonstrates an intraoperative needle pointing at the medial femoral condyle. Second image demonstrates a needle pointing at the lateral femoral condyle. 3rd image demonstrates a needle pointing at the medial tibial plateau region. The soft tissue structures are unremarkable. IMPRESSION: Successful Total right knee arthroplasty. Electronically Signed: Wallace Langston MD at 20:13 EDT , Service support [phone], RAD/Knee 1 or 2 Views IMPRESSION: Successful Total right knee arthroplasty. Electronically Signed: Wallace Langston MD at 20:13 EDT , Service support [phone], CC: Melissa Arnett MD; Gregory Aponte Forensic Artist: Signed Anahy Valle Feastie Work Phone: Start: 10-04-2013 End: 10-04-2013 PT Discharge Summary Comments: See Note; NOTES: [facility] Physical Therapy [facility] [address] [place], [place] [address] Fax REHABILITATION SERVICES DISCHARGE SUMMARY MR#: [id number] Acct: [id number] Name: HANNAH LIGHT Rep #: [id number] : 1950 63 From: Moreno Escobedo Referring Dr.: Jose Miguel Schmid DO Status: DIS RCR Eval Date: Discharge Date: 09/11/13 DATE OF SERVICE: PHYSICIAN: Dr. Arnett. DIAGNOSIS: Vertigo. DATE OF DISCHARGE: October 03, 2013. Hannah Light was seen in my office for a total of 2 visits. She was seen initially on August 28, 2013, where she had a positive left-sided Hallpike Lyla test and was treated with left-sided Johnny maneuver. She returned 2 days later and said she was much better, but not 100 percent better. She was still found to have a positive left-sided Hallpike [place] test of 40-second duration with a delayed onset nystagmus and upward torsional, therefore that day we treated her with a left-sided posterior Semont technique for cupulolithiasis and appropriate home going instructions. She was walking well at that time in and out, and the plan was to continue to see her on a weekly basis and to monitor the need for further positional interventions or exercises. She canceled her next visit and any rechecks that were scheduled for her and at this point, it has been over a month and I am discontinuing her from my care due to nonattendance. Moreno Escobedo, PT T: NTS JOB: [id number] <Electronically signed by Moreno Escobedo > 10/04/13 0645 CC: Signed Leatha Morrison Start: 09-30-2013 End: 09-30-2013 PT Discharge Summary Comments: See Note; NOTES: [address] [place] [address] Fax REHABILITATION SERVICES DISCHARGE SUMMARY MR#: [id number] Acct: [id number] Name: HANNAH LIGHT Rep #: [id number] : 1950 63 From: Wallace Lewis Referring Dr.: Jose Miguel Schmid DO Status: DIS RCR Eval Date: Discharge Date: 09/19/13 DATE OF SERVICE: REFERRING PHYSICIAN: Dr. Jose Miguel Schmid. Hannah Light was evaluated at [facility] on the date of July 17, 2013 with the chief complaint of right knee pain. Treatment had temporarily stopped with that patient secondary to her having to have arthroscopic surgery. This patient was reassessed status post surgery on the date of August 12, 2013, and treated for a total of 6 physical therapy visits through the date of September 11, 2013. On that date, this patient reported that she felt as though she were ready for discharge. The patient rated her right knee pain at 0/10. With manual muscle testing, this patient's right knee flexion was 4+/5, while extension was 5/5. With range of motion, extension was -4 degrees and flexion was 127 degrees. This patient was independent with a home exercise program and achieved all treatment goals at that time. Therefore, this patient is officially discharged from [facility] with my personal recommendation for her to continue independently with her home exercise program to prevent future episodes of right knee pain. Wallace Lewis, PT T: NTS JOB: [id number] <Electronically signed by Wallace Lewis > 09/30/13 1156 CC: Signed Leatha Morrison Start: 08-29-2013 End: 08-29-2013 Inital Evaluation - PT Comments: See Note; NOTES: [address] [place] [address] Fax REHABILITATION SERVICES INITIAL EVALUATION MR#: [id number] Acct: [id number] Name: HANNAH LIGHT Rep #: [id number] : 1950 63 From: Moreno Escobedo Referring Dr.: Jose Miguel Schmid DO Status: REG RCR Insurance: [facility] [employer] Eval Date: DATE OF SERVICE: 08/28/2013 PHYSICIAN: Dr. Arnett. DIAGNOSIS: Positional vertigo. SUBJECTIVE: Hannah Light is a 63-year-old female who presents today with vertigo. She says she has had it 3-1/2 months. She thinks it may have started, doctors told her with some medication that she was on. She has had a long last year with a number of right hip surgeries due to infection in there and also recent right knee scope, but she says when she looks down and gets up, turns too quick, she spins, is off balance for about 20 seconds. When she gets out of bed, she spins again about 20 seconds. Sometimes this makes her miserable lot of the day, other times it is gone after 20 seconds. Oftentimes, she feels lightheaded for a while afterwards, but it eventually lets up, it has been a daily occurrence for about the last 3-1/2 months, sometimes once a day, sometimes up to 4 times today. 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 She is supposed to go back to work on Monday. She says when her dizziness is bad, she avoids going out on those days, she cannot drive on those days, sweeping and anything where she is moving too much can be miserable, but this is not an everyday occurrence. She has been given meclizine and takes it as needed. She is unsure whether it helps or not. 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 She has high blood pressure. Her goals are to get rid of this dizziness. She is currently in therapy for her orthopedic concerns; however, she is awaiting approval of more visits. OBJECTIVE: The patient ambulates into physical therapy in no acute distress. She has an obvious Trendelenburg gait on the right, but is independent with her gait on a firm flat surface, independent with her transfers to and from sitting, to and from supine. She has fair cervical mobility without evidence of pain. With Hallpike Llya screening, she has what appears to be some very slight positive right Hallpike [place] difficult to tell which way the nystagmus goes, but left Hallpike [place] is obviously positive with an upward torsional nystagmus of approximately 15-second duration. I treat her with the left left- sided Johnny maneuver today and then retesting of the left Hallpike is negative. 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 GOALS: 1. Her dizziness will be abolished. 2. She will go 2 days without noticing any dizziness lying down or bending over. PLAN: At this point, I plan to see this patient for 1-2 times a week for 2-6 visits as needed. I have treated her with the Johnny maneuver and appropriate education on management of her condition. We will continue to monitor, need for further positional interventions and further ocular motor and balance if needed and appropriate home exercise program. She was agreeable to this course of therapy. Moreno Escobedo, PT T: NTS JOB: [id number] <Electronically signed by Moreno Escobedo > 08/29/13 1103 CC: Signed For Medicare only, by signing this I certify the plan of care. __ Physicians Signature Date Leatha Morrison Start: 08-27-2013 End: 08-27-2013 PT Discharge Summary Comments: See Note; NOTES: [facility] Physical [facility] [address] [place], [place] [address] Fax REHABILITATION SERVICES DISCHARGE SUMMARY MR#: [id number] Acct: [id number] Name: HANNAH LIGHT Rep #: [id number] : 1950 63 From: Radha Staton Referring : Jose Miguel Schmid DO Status: REG RCR Eval Date: Discharge Date: DATE OF SERVICE: REFERRING PHYSICIAN: Dr. Alvarez REFERRING DIAGNOSIS: Status post right total hip replacement. Hannah was seen in our clinic for a total of 7 visits for therapeutic exercise. I believe she was going to have knee surgery and come back, therefore, we will be discharging her from our care. Thank you once again for the referral of Hannah to our clinic. Radha Staton, PT T: NTS JOB: [id number] <Electronically signed by Radha Staton > 08/27/13 1735 CC: Signed Leatha Morrison Start: 07-31-2013 End: 07-31-2013 Operative Report Comments: See Note; NOTES: [facility] Medical Records Department [address] [place] [address] Operative Report MR#: [id number] Acct: [id number] Name: HANNAH LIGHT Rep #: [id number] : 1950 63 From: Jose Miguel Schmid DO PCP: Melissa Arnett MD Status: REG SDC DATE OF SERVICE: 07/31/2013 DATE OF SERVICE: July 31, 2013 OPERATION: Diagnostic and operative arthroscopy, right knee, with arthroscopic subtotal synovectomy and lysis of adhesions. PREOPERATIVE DIAGNOSIS: Painful scar tissue status post right total knee replacement arthroplasty. POSTOPERATIVE DIAGNOSIS: Painful scar tissue status post right total knee replacement arthroplasty. SURGEON: Jose Miguel Schmid D.O. COMMERCIAL CORRESPONDENT: ____ PA student. ANESTHESIA: General. ANESTHESIOLOGIST: Jose Joshi M.D. DRAINS: None. SPECIMENS: None. COMPLICATIONS: None. DESCRIPTION OF PROCEDURE: With appropriate informed consent, the patient was taken to the operative suite. After induction of general anesthesia and administration of preoperative antibiotics, the well leg was wrapped and padded. The operative extremity was placed into the arthroscopy leg tong and prepared and draped sterilely. Subsequently, standard arthroscopy portals were preinjected with 0.5% Marcaine with epinephrine and the lateral portal was established. Diagnostic arthroscopy was begun. The femoral, tibial and patellar components were well seated and well aligned. There was significant suprapatellar pouch and peripatellar scar tissue present. Medial compartment was entered and medial portal was established. There was exuberant scar tissue within the femoral notch. There was also noted to be significant scar tissue in a pseudomeniscus type formation on both the medial and lateral compartments. There was tight lateral scar tissue along the lateral femoral condyle adjacent to the patella. Utilizing a combination of a ____ meniscotome shaver and a 90-degree suction- tipped ArthroCare wand, a subtotal synovectomy was performed resecting the scar tissue from the notch from the medial and lateral compartments and from the parapatellar region. Lysis of adhesions was performed within the suprapatellar pouch release of adhesions in this area and tight lateral adhesions were released and removed with a combination of the ArthroCare and a shaver. Subsequently, after verifying that no further scar tissue impingement was present, the arthroscopy instruments and fluid were removed from the knee. The portals were closed with interrupted sutures of 4-0 nylon. Sterile well-padded dressing and Michael wrap were applied. The patient was extubated and transferred to the PACU in stable and satisfactory condition. Jose Miguel Schmid DO T: NTS JOB: [id number] 07/31/13 1448 <Electronically signed by Jose Miguel Schmid DO> Date Jose Miguel Schmid DO CC: Melissa Arnett MD; Jose Miguel Schmid DO Date Dictated: 07/31/131336 Date Transcribed: 07/31/131336 Forensic Artist: Signed Leatha Morrison Start: 07-29-2013 End: 07-29-2013 History & Physical Examination Comments: See Note; NOTES: [facility] Medical Records Department [address] [place] [address] History and Physical 07/24/13 0739 MR#: [id number] Acct: [id number] Name: HANNAH LIGHT Rep #: [id number] : 1950 63 From: Cleveland Palmer PA-C PCP: Melissa Arnett MD Status: PRE RCR Location: PT DATE OF SERVICE: This is PRETTY Hightower dictating a preoperative history and physical for Dr. Jose Miguel Schmid. A 63-year-old female with the date of of 1950. PRIMARY CARE PHYSICIAN: Melissa Arnett MD The patient is scheduled for a right knee arthroscopy. HISTORY OF PRESENT ILLNESS: This is a pleasant 63-year-old female who was scheduled for right knee arthroscopy as a result of scar tissue developed postoperatively of her right total knee, which was performed by Dr. Dain Gibbs in August 2012. The patient has been having increasing pain with the knee postoperatively and describes it as a pinching-type sensation with ambulation. The patient states that she was fine, ____ postoperative the patient started developing discomfort several months after surgery. She states the pain becomes quite severe at times with certain movements and describes it as a 7-8 on a scale of 1-10. The patient states it is made worse with twisting and turning. She has had no feeling of instability. Otherwise, the patient feels she has been in good health. She denies any recent illnesses or infection. She does have chronic vision loss. Denies any recent chest pain. She does report a history of hypertension and has a history of leaking heart valve by her history. The patient denies any associated symptoms with it. The patient denies any respiratory complaints including cough, pneumonia, exertional dyspnea, orthopnea, sleep apnea. Denies any GI complaints including constipation, diarrhea, heartburn, hematochezia or melena. The patient does have occasional leg swelling and does have a difficult time with ambulation due to the above-stated complaint. The patient denies any urinary complaints including incontinence, frequency, burning, or hematuria. She does report a history of shingles and a tattoo, but denies Raynaud's. The patient does have history of depression and stress. Denies anxiety, insomnia, mental illness or suicidal ideations. ____The patient does have a history of bleeding, bruising tendencies in the past transfusions with the last anemia. I otherwise, discussed and reviewed at length in detail 10 review of systems. All pertinent positives and negatives noted in medical record. PAST MEDICAL HISTORY: The patient has a past medical history of arthritis, high blood pressure, thyroid disease, psoriasis and a leaking heart valve. PAST SURGICAL HISTORY: Appendectomy, cholecystectomy, tubal ligation, carpal tunnel, heel spur, left knee arthroscopy in 2009, right knee arthroscopy in 2011, right total knee by Dr. Gibbs in August 2012 and a right total hip in March [address] Schmid. The patient reports no history of anesthesia complications. SOCIAL HISTORY: She does wear glasses. This patient is with 2 children. 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 Denies ever using tobacco products, alcohol, or illicit drugs. ALLERGIES: THE PATIENT STATES SHE IS ALLERGIC TO ALBUTEROL AND LIDODERM. MEDICATIONS: She is on multiple medications. For a complete list of the patient's presently prescribed medications, [id number] medications and supplements, please see the medication reconciliation form. PHYSICAL EXAMINATION: GENERAL: I found a healthy-appearing 63-year-old female. HEENT: Within normal limits. Cranial nerves II through XII are grossly intact. NECK: Supple. No JVD. No carotid bruits. LUNGS: Clear. CARDIAC: Regular rate and rhythm with no appreciable heaves, thrills or murmurs. MUSCULOSKELETAL: The patient had no pain on palpation of the cervical, thoracic or lumbosacral spine. She has good range of motion in bilateral shoulders, elbows , wrists, and hands. Good muscle tone and strength. Neurovascular is otherwise intact. ABDOMEN: Soft, nontender without masses. EXTREMITIES: She has good range of motion of the bilateral hips without pain. She had a well-healed incision on her right hip from previous right total hip. She had good range of motion of the right hip with no appreciable instability. On exam of the right knee, I found the patient had a well-healed incision from previous right total knee. The patient did have complaint of pain along the mediolateral joint lines, describing a pinching-type pain, also had some mild discomfort she has, with palpation along the joint line. The patient ____ patella appeared to be tracking very nicely from the femoral groove. She had no mid flexion instability. Range of motion was 0-115. IMAGING STUDIES: Three views, AP, lateral and sunrise view of the knee shows very nicely seated cemented femoral tibial component, as well as ____ no translucencies or indication of loosening. IMPRESSION: Scar tissue development postop of right total knee. PLAN: Dr. Schmid did discuss his treatment options with the patient, as she has failed further conservative therapies including cortisone injections, anti-inflammatories and therapy, and would like to pursue with surgery for debridement of scar tissue. Dr. Schmid reviewed the potential risks, benefits, and complications of this procedure in detail, including but not limited to , infection, nerve and blood vessel damage, persistent pain, numbness, tingling, paresthesias, blood clots, pulmonary embolism, and the requirement for possible further surgery. The patient expressed full understanding and has no further questions for the doctor. The patient does agree to proceed with the above-stated procedure and has signed the surgery permit form. PRETTY Hightower T: ISHA JOB: [id number] 07/29/13711 <Electronically signed by Cleveland Palmer PA-C> Date: Time: Cleveland Palmer PA-C CC: Melissa Arnett MD; Cleveland OLSEN Date Dictated: 07/24/13738 Date Transcribed: 07/24/13738 Forensic Artist: Signed ____ I have re-examined the patient. There are no clinical changes since date of exam. ____ See Progress Notes for Changes ____ Dictated on Admission Date: Time: Signature: Leatha Morrison Start: 07-18-2013 End: 07-18-2013 Inital Evaluation - PT Comments: See Note; NOTES: [facility] [address] [place], [place] [address] Fax REHABILITATION SERVICES INITIAL EVALUATION MR#: [id number] Acct: [id number] Name: HANNAH LIGHT Rep #: [id number] : 1950 63 From: Wallace Lewis Referring : Jose Miguel Schmid DO Status: REG RCR Insurance: [facility] Eval Date: DATE OF SERVICE: REFERRING PHYSICIAN: Dr. Jose Miguel Schmid. SUBJECTIVE: A 63-year-old female referred to [facility] on the date of July 17, 2013 with chief complaint of right knee pain. This patient reports she had surgery performed on the date of August 20, 2012 in order to having a right total knee replacement. The patient reports that her knee never did loosen up after surgery. The patient reports that she has always experienced a tight sensation and significant pain in her right knee. The patient reports that she is scheduled for arthroscopic surgery on the date of August 30, 2013, in order to attempt removing scar tissue. The patient reports that the pain is always located on the lateral aspect of her right knee. The patient reports that she has a significant increase in swelling as well as pain with increased ambulation and prolonged standing. The patient reports that she is not able to work at this time secondary to her pain. 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 The patient reports that she has sleep difficulty at this time secondary to pain. The patient does note that she has tingling present on the lateral aspect of her right knee ; however, no other right lower extremity tingling or numbness. The patient currently reports that her right knee pain is rated at 2/10 while sitting here in clinic, but notes it elevates to 10/10 at worst, which is when she ambulates for a prolonged period of time. OBJECTIVE: With gait, this patient displays a limp of her right lower extremity. The patient lacks heel strike of the right lower extremity during stance phase secondary to not achieving full extension with her right knee. With palpation, there is minimal swelling present on today's date. There is also mild warmth present. This patient's incision is fully healed. This patient does present with 1+ pitting edema on today's date in the right lower extremity. Girth was measured at the joint line of this patient's knees on today's date. This patient's right knee was 42 cm while the patient's left knee is 40 cm. With passive range of motion, left knee extension is -5 degrees, flexion is 123 degrees. With right knee passive range of motion, extension is -14 degrees and flexion is 96 degrees. With manual muscle testing, right lower extremity, this patient's right knee extension is 4/5, and right knee flexion is 4-/5. This patient is grossly 5/5 throughout the left lower extremity. With neurological testing, bilateral lower extremity sensation is within normal limits to light touch throughout this patient's dermatomal pattern and bilateral Achilles tendon reflexes rated at 2+/3. ASSESSMENT: This patient has right knee pain, decreased range motion in the right knee and weakness in right lower extremity secondary to having a right knee replacement approximately 1 year ago. Rehabilitation potential for this patient is fair to good. PROBLEMS: 1. Right knee pain. 2. Decreased range of motion in the right knee. 3. Weakness, right lower extremity. 4. Difficulty with prolonged ambulation. 5. Intolerance for prolonged standing. 6. Difficulty with sleep. GOALS: For this patient are as follows. 1. Decrease right knee pain by 25% in 1-2 weeks in order to aid with this patient's ability to sleep throughout the night with greater ease. 2. Increase this patient's right knee range of motion, extension by 10 degrees and flexion by 15 degrees in 1-2 weeks in order to aid with this patient's ability to ambulate with more normal gait pattern. 3. This patient will be independent with home exercise program in approximately 1-2 weeks. PLAN: Plan of care for this patient will be as follows: Right knee passive range of motion and mobilizations, right knee active range of motion exercises, bike and home exercise program. We will use cold pack as needed to treat this patient's pain. I plan on treating this patient 2-3 times a week for approximately 1-2 weeks. Wallace Lewis, PT T: NTS JOB: [id number] <Electronically signed by Wallace Lewis > 07/18/13 1023 CC: Signed For Medicare only, by signing this I certify the plan of care. __ Physicians Signature Date Anahy Zhang Work Phone: Start: 06-21-2013 End: 06-21-2013 Inital Evaluation - PT Comments: See Note; NOTES: [facility] [address] [place] [address] Fax REHABILITATION SERVICES INITIAL EVALUATION MR#: [id number] Acct: [id number] Name: HANNAH LIGHT Rep #: [id number] : 1950 63 From: Radha Staton Referring Dr.: Temo Alvarez MD Status: DIS RCR Insurance: [facility] [employer] Eval Date: DATE OF SERVICE: REFERRING PHYSICIAN: Temo Alvarez MD REFERRING DIAGNOSIS: Right total hip revision on June 04, 2013. SUBJECTIVE: The patient is a 63-year-old female who reports to clinic today status post right total hip replacement revision on June 04, 2013. The patient reports that she has been exhausted in the last 2 days, she has gotten home, but she also has been doing a lot more around the house. Her wound is healed, she got home last Monday. She went to crutches Monday and she has been using them in the house. She is full weightbearing. This has been her fourth revision/hip replacement in March 25, 2013, due to infections. She did have her hip replaced at [facility] the last time with Dr. Jordan. She sees the doctor tomorrow. She has 5 steps into her home with bilateral railings and she ascends those steps at home with no problems. When she is in the home ____ floor. She has not tried the shower. She is okay getting in and out of bed. She has no hip pain, but her right knee is still persistently a 5-1/2/10, just even sitting there. She is doing ankle pumps, heel slides. She is not able to do a straight leg raise at this time or hip abduction. She uses her to help her with that and she is doing hamstring curls with the bands. PAST MEDICAL HISTORY: Positive for a leaky heart valve and neuro cardio syncope, hypertension and arthritis. OBJECTIVE: The patient's knee flexion range of motion right 120 degrees, left 130 degrees, knee extension right -4 degrees and full extension left -1 degree from full extension ; hip flexion right 71 degrees, left 104 degrees; hip abduction right 15 degrees, left 34 degrees. The patient's manual muscle testing is as follows: Hip abduction right 2-/5, left 3+/5. Hip extension, the patient is able to do half range of motion bridge , left was not tested. Knee flexion right 4-/5, left 4/5. Knee extension right 3-/5, left 4/5. Dorsiflexion and plantarflexion bilaterally 3+/5. The patient ambulates with decreased weightbearing on the right with bilateral crutches and decreased heel-to-toe gait pattern. ASSESSMENT: The patient presents with the diagnosis of status post total hip replacement on the right with a revision 3 times secondary to infection on June 04, 2013. PROBLEMS: 1. Decreased right hip strength. 2. Decreased gait. 3. Decreased range of motion. 4. Increased pain. GOALS: 1. Independent with home exercise program. 2. Increase right hip strength to 4-/5 3. Ambulate without antalgic gait. 4. Increase right hip active range of motions within functional limits. 5. Decrease pain to 1/10 with gait. PLAN: Plan of care is reviewed by the patient. Received the patient's consent to treat. I plan on seeing the patient 3 times per week for 12-24 visits for right hip strength, gait training, functional activities with a home exercise program and modalities as needed. Radha Staton, PT T: NTS JOB: [id number] <Electronically signed by Radha Staton > 06/21/13 1426 CC: Signed For Medicare only, by signing this I certify the plan of care. __ Physicians Signature Date Leatha Morrison Work Phone: Start: 06-18-2013 End: 06-23-2013 CBC W Auto Differential panel - Blood Silvia Mccarthy MD Start: 05-14-2013 End: 06-01-2013 CBC W Auto Differential panel - Blood Silvia Mccarthy MD Start: 03-08-2013 End: 03-08-2013 Ecg routine ecg w/least 12 lds w/i&r Kristyn Leblanc MD Start: 03-08-2013 End: 03-08-2013 Follow Up Appt 6 months Kristyn Leblanc MD Start: 03-08-2013 End: 03-08-2013 PFM Kristyn Leblanc MD Start: 01-22-2013 End: 01-22-2013 Extremity Lower without Contra Comments: See Note; NOTES: [facility] Imaging Services [address] [place] [address] CAT Scan Report MR#: [id number] Acct: [id number] Name: HANNAH LIGHT Rep #: [id number] : 1950 F 63 From: Venkat Min MD PCP: Melissa Arnett MD Status: REG CLI Study: Extremity Lower without Contra Date of Exam: 01/22/13 Exam# [id number] Ordering Dr: Leatha Morrison STUDY: CT RIGHT KNEE WITHOUT CONTRAST REASON FOR EXAM: Female, 63 years old. Knee replacement surgery August 2012. Pain. RADIATION DOSAGE (If Supplied By Facility): CTDIvol = ( 22.91 ) mGy, DLP = ( 632.49 ) mGycm TECHNIQUE: Thin section images obtained through the right knee with sagittal and coronal reformatting COMPARISON: X-rays of the knee December 25, 2012 FINDINGS: Artifact associated with hardware from knee replacement degrades detail. Total knee replacement is identified. Alignment is near-anatomic. There is no lucency surrounding the components. No fracture is identified. Joint effusion is suggested. IMPRESSION: Total knee replacement. No fracture. Joint effusion. Electronically Signed: Venkat Min M.D. at 18:13 EST , Service support [phone], CC: Leatha Morrison; Melissa Arnett MD Forensic Artist: Signed Leatha Morrison Work Phone: Start: 07-11-2012 End: 07-11-2012 Follow Up Appt 6 months Kristyn Leblanc MD Start: 07-11-2012 End: 07-11-2012 PFM Kristyn Leblanc MD End: 11-17-2008 Appendectomy Appendectomy Bonnie Moise RN Appendectomy Appendectomy Leatha Morrison Appendectomy Leatha Morrison Work Phone: Cholecystectomy Nick Barrow Cholecystectomy Briana Gravi us Cholecystectomy Nick Barrow Cholecystectomy Nick Barrow Cholecystectomy Nick Barrow Cholecystectomy Nick Kumar Cholecystectomy Cholecystectomy Leatha Dawkins a End: 11-17-2008 Cholecystectomy Cholecystectomy Bonnie Moise RN Cholecystectomy Leatha Morrison Work Phone: heel spur surgery Crystal Loc klear heel spur surgery Nick Smi th heel spur surgery Briana Gra vius heel spur surgery Nick Smi th heel spur surgery Nick Smi th heel spur surgery Nick Smi th heel spur surgery Nick Hamlet is Laparoscopic cholecystectomy Crystal Madina left knee arthroscopy Crystal Madina left knee arthroscopy Nick Barrow left knee arthroscopy Briana Desireius left knee arthroscopy Nick Barrow left knee arthroscopy Nick Barrow left knee arthroscopy Nick Barrow left knee arthroscopy Nick Kumar Other bilateral liga tion and division of fallopian tubes Crystal Madina Other bilateral liga tion and division of fallopian tubes Nick Barrow Other bilateral liga tion and division of fallopian tubes Briana Gravius Other bilateral liga tion and division of fallopian tubes Nick Barrow Other bilateral liga tion and division of fallopian tubes Nick Barrow Other bilateral liga tion and division of fallopian tubes Nick Barrow Other bilateral liga tion and division of fallopian tubes Nick Kumar Release of carpal tunnel Harry jennifer Madina Release of carpal tunnel Mor huan Barrow Release of carpal tunnel Tino min Gravius Release of carpal tunnel Mor huan Barrow Release of carpal tunnel Mor huan Barrow Release of carpal tunnel Mor huan Barrow Release of carpal tunnel Mor huan José right knee Crystal Madina Comment on above: Dr. Heard--nerve caud. right knee Nick Barrow Comment on above: Dr. Heard--nerve caud. right knee Briana Fitzgerald Comment on above: Dr. Heard--nerve caud. right knee Nick Barrow Comment on above: Dr. Heard--nerve caud. right knee Nick Barrow Comment on above: Dr. Heard--nerve caud. right knee Nick Barrow Comment on above: Dr. Heard--nerve caud. right knee Nick Kumar Comment on above: Dr. Heard--nerve caud. Screening for osteoporosis Screening for osteoporosis (Renamed from Encounter for screening for osteoporosis) Leatha Morrison Yuki Bartlett LPN Radha Dumont LP N Mayra Escobedo DIONTE Work Phone: Devyn Carty LP N RACHEL ROJAS Plan of Treatment Date Care Activity Detail Author Start: 04-02-2024 Patient discharge [facility] Start: 04-01-2024 Following clinical pathway protocol [facility] Start: 04-01-2024 Assessment of risk of venous thromboembolism [facility] Start: 04-01-2024 Cardiac monitoring [facility] Start: 04-01-2024 Catheterization of vein [facility] Start: 04-01-2024 Consultation [facility] Start: 04-01-2024 Continuous pulse oximetry [facility] Start: 04-01-2024 Elevation of head of bed [facility] Start: 04-01-2024 Exercises [facility] Start: 04-01-2024 Insertion of catheter into peripheral vein [facility] Start: 04-01-2024 Measuring intake and output [facility] Start: 04-01-2024 Notification of physician [facility] Start: 04-01-2024 Oxygen therapy [facility] Start: 04-01-2024 Patient referral to dietitian [facility] Start: 04-01-2024 Providing care according to standard [facility] Start: 04-01-2024 Provision of activity privileges [facility] Start: 04-01-2024 Referral to occupational therapist [facility] Start: 04-01-2024 Referral to service [facility] Start: 04-01-2024 Speech therapy assessment [facility] Start: 04-01-2024 Telemedicine consultation with patient [facility] Start: 04-01-2024 Tobacco use cessation education [facility] Start: 04-01-2024 End: 04-01-2024 [facility] Start: 04-01-2024 Vital signs measurements [facility] Start: 04-01-2024 Admission procedure [facility] Start: 04-01-2024 Patient referral to dietitian [facility] Start: 06-15-2023 Patient discharge [facility] Start: 06-14-2023 Following clinical pathway protocol [facility] Start: 06-14-2023 Oxygen therapy [facility] Start: 06-14-2023 Admission procedure [facility] Start: 06-14-2023 Provision of overbed trapeze [facility] Start: 06-14-2023 Recommendation to continue with treatment [facility] Start: 06-14-2023 Ambulation therapy management [facility] Start: 06-14-2023 Application of device [facility] Start: 06-14-2023 Application of elastic bandage [facility] Start: 06-14-2023 Assessment of risk of venous thromboembolism [facility] Start: 06-14-2023 Catheterization of vein [facility] Start: 06-14-2023 Exercises [facility] Start: 06-14-2023 Following clinical pathway protocol [facility] Start: 06-14-2023 Incentive spirometry [facility] Start: 06-14-2023 Introduction of urinary catheter [facility] Start: 06-14-2023 Measuring intake and output [facility] Start: 06-14-2023 Neurovascular assessment [facility] Start: 06-14-2023 Patient education [facility] Start: 06-14-2023 Procedure discontinued [facility] Start: 06-14-2023 Provision of activity privileges [facility] Start: 06-14-2023 Referral to occupational therapist [facility] Start: 06-14-2023 Referral to service [facility] Start: 06-14-2023 Vital signs measurements [facility] Start: 06-14-2023 Wound care [facility] Start: 06-14-2023 [facility] Start: 06-14-2023 Admission procedure [facility] Start: 06-14-2023 [facility] Start: 12-20-2022 Provider Instructions for Treatment [facility]; [facility] Work Phone: Start: 12-16-2022 Assay of free thyroxine [facility]; [facility] Work Phone: Start: 12-16-2022 Assay of thyroid stimulating hormone tsh [facility]; [facility] Work Phone: Start: 12-14-2022 Urinalysis qual/semiquant except immunoassays [facility]; [facility] Work Phone: Start: 12-14-2022 Potassium serum plasma/whole blood [facility]; [facility] Work Phone: Start: 12-14-2022 Assay of thyroid stimulating hormone tsh [facility]; [facility] Work Phone: Start: 12-14-2022 Gluc bld gluc mntr dev cleared fda spec home use [facility]; [facility] Work Phone: Start: 10-31-2022 Patient Education [facility]; [facility] Work Phone: Start: 10-31-2022 Procedure Education [facility]; [facility] Work Phone: Start: 10-31-2022 Provider Instructions for Treatment [facility]; [facility] Work Phone: Start: 07-01-2022 Blood count complete auto&auto difrntl wbc [facility]; [facility] Work Phone: Start: 07-01-2022 C-reactive protein high sensitivity [facility]; [facility] Work Phone: Start: 07-01-2022 Comprehensive metabolic panel [facility]; [facility] Work Phone: Start: 07-01-2022 Patient Education [facility]; [facility] Work Phone: Start: 07-01-2022 Procedure Education [facility]; [facility] Work Phone: Start: 07-01-2022 Provider Instructions for Treatment [facility]; [facility] Work Phone: Start: 07-01-2022 Sedimentation rate rbc automated [facility]; [facility] Work Phone: Start: 06-15-2022 Provider Instructions for Treatment [facility]; [facility] Work Phone: Start: 06-14-2022 Procedure Education [facility]; [facility] Work Phone: Start: 03-28-2022 Procedure Education [facility]; [facility] Work Phone: Start: 03-28-2022 Provider Instructions for Treatment [facility]; [facility] Work Phone: Start: 12-14-2021 Lipid panel [facility]; [facility] Work Phone: Start: 12-14-2021 Assay of free thyroxine [facility]; [facility] Work Phone: Start: 12-14-2021 25 hydroxy includes fractions if performed [facility] [facility]; [facility] Work Phone: Start: 12-14-2021 Assay of thyroid stimulating hormone tsh [facility]; [facility] Work Phone: Start: 12-14-2021 Procedure Education [facility]; [facility] Work Phone: Start: 12-14-2021 Provider Instructions for Treatment [facility]; [facility] Work Phone: Start: 04-06-2021 Assay of thyroid stimulating hormone tsh [facility]; [facility] Work Phone: Start: 04-06-2021 Comprehensive metabolic panel [facility]; [facility] Work Phone: Start: 04-06-2021 Blood count manual cell count each [facility]; [facility] Work Phone: Start: 01-11-2021 Procedure Education [facility]; [facility] Work Phone: Start: 11-09-2020 25 hydroxy includes fractions if performed [facility]; [facility] Work Phone: Start: 11-09-2020 Comprehensive [facility]; [facility] Work Phone: Start: 11-09-2020 Assay of thyroid stimulating hormone tsh [facility]; [facility] Work Phone: Start: 11-09-2020 Lipid panel [facility]; [facility] Work Phone: Start: 11-09-2020 Procedure Education [facility]; [facility] Work Phone: Start: 11-09-2020 Provider Instructions for Treatment [facility]; [facility] Work Phone: Start: 10-27-2020 Procedure Education [facility]; [facility] Work Phone: Start: 10-20-2020 Procedure Education [facility]; [facility] Work Phone: Start: 10-20-2020 Provider Instructions for Treatment [facility]; [facility] Work Phone: Start: 03-13-2020 Procedure Education [facility]; [facility] Work Phone: Start: 09-25-2019 Comprehensive [facility] panel [facility] Work Phone: Comment on above: Dec 2019 Start: 09-25-2019 Lipid panel [facility] Work Phone: Comment on above: Dec 2019 Start: 09-25-2019 Procedure Education [facility] Work Phone: Start: 09-25-2019 Provider Instructions for Treatment [facility] Work Phone: Start: 08-13-2019 Lipid panel [facility] Work Phone: Start: 08-13-2019 Comprehensive metabolic panel [facility] Work Phone: Start: 08-13-2019 Blood count complete auto&auto difrntl wbc [facility] Work Phone: Start: 08-13-2019 25 hydroxy includes fractions if performed [facility] Work Phone: Start: 08-13-2019 Assay of thyroid stimulating hormone tsh [facility]; [facility] Work Phone: Start: 08-13-2019 TSH Qn TSH (THYROID STIMULATING HORMONE) ([id number]) [facility] Work Phone: Start: 08-13-2019 Procedure Education [facility] Work Phone: Start: 08-13-2019 Provider Instructions for Treatment [facility] Work Phone: Start: 11-12-2018 Lipid panel [facility] Work Phone: Start: 11-05-2018 Procedure Education [facility] Work Phone: Start: 11-05-2018 Provider Instructions for Treatment [facility] Work Phone: Start: 10-25-2018 Patient Education [facility] Work Phone: Start: 10-25-2018 Procedure Education [facility] Work Phone: Start: 10-25-2018 Provider Instructions for Treatment [facility] Work Phone: Start: 10-25-2018 Ova&parasites direct smears concentration & id [facility] Work Phone: Start: 10-25-2018 Blood occult peroxidase actv qual feces 1 deter [facility] Work Phone: Start: 10-25-2018 Leukocyte assmt fecal qual/semiquantitative [facility] Work Phone: Start: 10-25-2018 Iaad ia clostridium difficile toxin [facility] Work Phone: Start: 10-25-2018 Cul bact stool aerobic isol salmonella&shigell [facility] Work Phone: Start: 10-25-2018 Throat culture THROAT CULTURE ([id number]) [facility] Work Phone: Start: 07-18-2018 Cul bact xcpt urine blood/stool aerobic isol Throat Culture ([id number]) [facility] Work Phone: Start: 06-19-2018 Procedure Education [facility] Work Phone: Start: 06-19-2018 Provider Instructions for Treatment [facility] Work Phone: Start: 06-19-2018 Iaadiadoo streptococcus group a [facility]; [facility] Work Phone: Start: 06-19-2018 S. pyogenes Ag IA Ql (Unsp spec) Rapid Strep Test, Office ([id number]) [facility] Work Phone: Start: 11-15-2017 25 hydroxy includes fractions if performed [facility] Work Phone: Start: 11-15-2017 Assay of thyroid stimulating hormone tsh [facility]; [facility] Work Phone: Start: 11-15-2017 Thyrotropin Qn TSH (THYROID STIMULATING HORMONE) ([id number]) [facility] Work Phone: Start: 11-15-2017 Procedure Education [facility] Work Phone: Start: 11-15-2017 Provider Instructions for Treatment [facility] Work Phone: Start: 09-04-2017 End: 09-04-2017 Patient encounter procedure Appointment [facility] Work Phone: Start: 12-19-2016 End: 12-19-2016 Patient encounter procedure Appointment [facility] Work Phone: Start: 12-19-2016 End: 12-19-2016 Follow Up Appt 6 months Follow Up Appt 6 months [facility] Work Phone: Start: 12-19-2016 End: 12-19-2016 Nuclear stress test -Lexiscan Nuclear stress test -Lexiscan [facility] Work Phone: Start: 12-19-2016 End: 12-19-2016 PFM PFM [facility] Work Phone: Start: 11-15-2016 Procedure Education [facility] Work Phone: Start: 11-15-2016 Provider Instructions for Treatment [facility] Work Phone: Start: 11-15-2016 Lipid panel [facility] Work Phone: Comment on above: Jan 2017 Start: 11-15-2016 Comprehensive metabolic panel [facility] Work Phone: Comment on above: Jan 2017 Start: 11-15-2016 Assay of thyroid stimulating hormone tsh [facility]; [facility] Work Phone: Start: 11-15-2016 Thyrotropin Qn TSH (THYROID STIMULATING HORMONE) ([id number]) [facility] Work Phone: Comment on above: Do in Oct 2016 Start: 11-16-2015 Provider Instructions for Treatment [facility] Work Phone: Start: 09-07-2015 C-reactive protein [facility]; [facility] Work Phone: Start: 09-07-2015 CRP mass conc C-REACTIVE PROTEIN ([id number]) [facility] Work Phone: Start: 09-07-2015 Assay of thyroid stimulating hormone tsh [facility]; [facility] Work Phone: Start: 09-07-2015 Thyrotropin Qn TSH (THYROID STIMULATING HORMONE) ([id number]) [facility] Work Phone: Start: 09-04-2015 Blood count complete auto&auto difrntl wbc [facility] Work Phone: Start: 09-04-2015 C-reactive protein [facility]; [facility] Work Phone: Start: 09-04-2015 CRP mass conc C-Reactive Protein ([id number]) [facility] Work Phone: Start: 09-04-2015 Sedimentation rate rbc non-automated [facility] Work Phone: Start: 09-04-2015 Cobalamin (Vitamin B12) mass conc VITAMIN B-12 (CYANOCOBALAMIN) ([id number]) [facility] Work Phone: Start: 09-04-2015 Cyanocobalamin vitamin b-12 [facility]; [facility] Work Phone: Start: 09-04-2015 25 hydroxy includes fractions if performed [facility] Work Phone: Start: 09-04-2015 Assay of iron [facility]; [facility] Work Phone: Start: 09-04-2015 Iron mass conc IRON ([id number]) [facility] Work Phone: Start: 09-04-2015 Assay of thyroid stimulating hormone tsh [facility]; [facility] Work Phone: Start: 09-04-2015 Thyrotropin Qn TSH (THYROID STIMULATING HORMONE) ([id number]) [facility] Work Phone: Start: 09-04-2015 Procedure Education [facility] Work Phone: Start: 02-23-2015 Provider Instructions for Treatment [facility] Work Phone: Start: 02-12-2015 End: 11-13-2014 Hepatic function 2000 panel - Serum or Plasma *Hepatic Function Panel [facility] Work Phone: Start: 02-12-2015 End: 11-13-2014 Lipid 1996 panel - Serum or Plasma *Lipid Profile CC PCP [facility] Work Phone: Start: 01-13-2015 Assay of thyroid stimulating hormone tsh [facility]; [facility] Work Phone: Start: 01-13-2015 Thyrotropin Qn TSH (THYROID STIMULATING HORMONE) ([id number]) [facility] Work Phone: Start: 01-13-2015 Assay of troponin quantitative [facility]; [facility] Work Phone: Start: 01-13-2015 Troponin I.cardiac mass conc Troponin I ([id number]) [facility] Work Phone: Start: 01-13-2015 Creatine kinase mb fraction only [facility] Work Phone: Start: 01-13-2015 Creatine kinase total [facility] Work Phone: Start: 01-13-2015 Assay of iron [facility]; [facility] Work Phone: Start: 01-13-2015 Iron mass conc IRON ([id number]) [facility] Work Phone: Start: 01-13-2015 Blood count complete automated [facility] Work Phone: Start: 01-13-2015 25 hydroxy includes fractions if performed [facility] Work Phone: Start: 11-18-2014 Patient Education [facility] Work Phone: Start: 11-18-2014 Procedure Education [facility] Work Phone: Start: 11-05-2014 End: 11-05-2014 Follow Up Appt 1 year Follow Up Appt 1 year [facility] Work Phone: Start: 11-05-2014 End: 11-13-2014 Hepatic function 2000 panel - Serum or Plasma *Hepatic Function Panel [facility] Work Phone: Start: 11-05-2014 End: 11-13-2014 Lipid 1996 panel - Serum or Plasma *Lipid Profile CC PCP [facility] Work Phone: Start: 11-05-2014 End: 11-05-2014 PFM PFM [facility] Work Phone: Start: 10-14-2014 Procedure Education [facility] Work Phone: Start: 08-19-2014 Comprehensive metabolic panel [facility] Work Phone: Start: 08-19-2014 Blood count complete auto&auto difrntl wbc [facility] Work Phone: Start: 08-19-2014 Antibody kevon-irwin eb virus early antigen ea [facility] Work Phone: Start: 08-19-2014 Cul bact xcpt urine blood/stool aerobic isol [facility] Work Phone: Start: 04-01-2014 25 hydroxy includes fractions if performed [facility] Work Phone: Comment on above: give lab slip to be drawn at hospital Start: 04-01-2014 Provider Instructions for Treatment [facility] Work Phone: Start: 11-12-2013 Provider Instructions for Treatment [facility] Work Phone: Start: 08-27-2013 Assay of thyroid stimulating hormone tsh [facility]; [facility] Work Phone: Start: 08-27-2013 Thyrotropin Qn TSH (THYROID STIMULATING HORMONE) ([id number]) [facility] Work Phone: Comment on above: to be drawn end of sep 2013 Start: 08-27-2013 25 hydroxy includes fractions if performed [facility] Work Phone: Comment on above: to be drawn end of sep 2013 Start: 08-26-2013 Blood count manual cell count each [facility] Work Phone: Start: 06-18-2013 End: 06-23-2013 CBC W Auto Differential panel - Blood *CBC with Differential [facility] Work Phone: Start: 06-13-2013 End: 06-13-2013 CBC W Auto Differential panel - Blood *CBC with Differential [facility] Work Phone: Start: 06-13-2013 End: 06-13-2013 Erythrocyte sedimentation rate *Sedimentation Rate (ESR) [facility] Work Phone: Start: 05-14-2013 End: 06-01-2013 CBC W Auto Differential panel - Blood *CBC with Differential [facility] Work Phone: Start: 03-14-2013 Culture bct isol&prsmptv id isolate ea urine [facility] Work Phone: Comment on above: pls add to urine you already have in the lab Start: 03-11-2013 Assay of thyroid stimulating hormone tsh [facility]; [facility] Work Phone: Start: 03-11-2013 Thyrotropin Qn TSH ([id number]) [facility] Work Phone: Start: 03-11-2013 Blood count complete automated [facility] Work Phone: Start: 03-11-2013 Comprehensive metabolic panel [facility] Work Phone: Start: 03-08-2013 End: 03-08-2013 Ecg routine ecg w/least 12 lds w/i&r EKG (In office) [facility] Work Phone: Start: 03-08-2013 End: 03-08-2013 Follow Up Appt 6 months Follow Up Appt 6 months [facility] Work Phone: Start: 03-08-2013 End: 03-08-2013 PFM PFM [facility] Work Phone: Start: 01-21-2013 Provider Instructions for Treatment [facility] Work Phone: Start: 11-16-2012 Lipid panel [facility] Work Phone: Comment on above: Give pt lab slip to be done after Jan 20, 2013 Start: 11-16-2012 Provider Instructions for Treatment [facility] Work Phone: Start: 09-21-2012 Provider Instructions for Treatment [facility] Work Phone: Start: 09-21-2012 Ova&parasites direct smears concentration & id [facility] Work Phone: Start: 09-21-2012 Blood occult peroxidase actv qual feces 1 deter [facility] Work Phone: Start: 09-21-2012 Leukocyte assmt fecal qual/semiquantitative [facility] Work Phone: Start: 09-21-2012 Culture bacterial any source anaerobic iso&id [facility] Work Phone: Start: 09-21-2012 Cul bact stool aerobic isol salmonella&shigell [facility] Work Phone: Start: 09-21-2012 Iaad ia cryptosporidium [facility] Work Phone: Start: 08-29-2012 Ova&parasites direct smears concentration & id [facility] Work Phone: Start: 08-29-2012 Blood occult peroxidase actv qual feces 1 deter [facility] Work Phone: Start: 08-29-2012 Leukocyte assmt fecal qual/semiquantitative [facility] Work Phone: Start: 08-29-2012 Cul bact stool aerobic isol salmonella&shigell [facility] Work Phone: Start: 08-29-2012 Provider Instructions for Treatment [facility] Work Phone: Start: 08-29-2012 Ova&parasites direct smears concentration & id [facility] Work Phone: Start: 08-29-2012 Blood occult peroxidase actv qual feces 1 deter [facility] Work Phone: Start: 08-29-2012 Leukocyte assmt fecal qual/semiquantitative [facility] Work Phone: Start: 08-29-2012 Culture bacterial any source anaerobic iso&id [facility] Work Phone: Start: 08-29-2012 Cul bact stool aerobic isol salmonella&shigell [facility] Work Phone: Start: 08-29-2012 Culture bacterial any source anaerobic iso&id [facility] Work Phone: Start: 07-11-2012 End: 07-11-2012 Follow Up Appt 6 months Follow Up Appt 6 months [facility] Work Phone: Start: 07-11-2012 End: 07-11-2012 PFM PFM [facility] Work Phone: Start: 07-09-2012 Lipid panel [facility] Work Phone: Start: 07-09-2012 Comprehensive metabolic panel [facility] Work Phone: Start: 07-09-2012 Blood count manual cell count each [facility] Work Phone: Start: 07-09-2012 Assay of thyroid stimulating hormone tsh [facility]; [facility] Work Phone: Start: 07-09-2012 Thyrotropin Qn TSH ([id number]) [facility] Work Phone: Start: 05-31-2012 Patient Education [facility] Work Phone: Start: 05-31-2012 Provider Instructions for Treatment [facility] Work Phone: Start: 05-31-2012 Leukocyte assmt fecal qual/semiquantitative [facility] Work Phone: Start: 05-31-2012 Culture bacterial any source anaerobic iso&id [facility] Work Phone: Start: 05-21-2012 Potassium molar conc POTASSIUM SERUM (72297) [facility] Work Phone: Start: 05-21-2012 Potassium serum plasma/whole blood [facility]; [facility] Work Phone: Start: 05-18-2012 Potassium molar conc POTASSIUM SERUM (72285) [facility] Work Phone: Comment on above: TO BE drawn STAT on Monday05-19-12 Start: 05-18-2012 Potassium serum plasma/whole blood [facility]; [facility] Work Phone: Start: 05-18-2012 Provider Instructions for Treatment [facility] Work Phone: Start: 05-18-2012 Culture bacterial any source anaerobic iso&id [facility] Work Phone: Comment on above: give pt lab slip for hospital Start: 05-18-2012 Potassium molar conc POTASSIUM SERUM (93740) [facility] Work Phone: Comment on above: stat Start: 05-18-2012 Potassium serum plasma/whole blood [facility]; [facility] Work Phone: Start: 05-08-2012 Blood occult peroxidase actv qual feces 1 deter [facility] Work Phone: Start: 05-08-2012 Culture bacterial any source anaerobic iso&id [facility] Work Phone: Start: 05-08-2012 Leukocyte assmt fecal qual/semiquantitative [facility] Work Phone: Start: 05-08-2012 Ova&parasites direct smears concentration & id [facility] Work Phone: Start: 05-08-2012 Cul bact stool aerobic isol salmonella&shigell [facility] Work Phone: Start: 05-08-2012 Provider Instructions for Treatment [facility] Work Phone: Start: 11-01-2011 Assay of thyroid stimulating hormone tsh [facility]; [facility] Work Phone: Start: 11-01-2011 Thyrotropin Qn TSH ([id number]) [facility] Work Phone: Start: 11-01-2011 Comprehensive metabolic panel [facility] Work Phone: Start: 11-01-2011 Lipid panel [facility] Work Phone: Start: 11-01-2011 Urine albumin quantitative [facility] Work Phone: Start: 10-05-2011 25 hydroxy includes fractions if performed [facility] Work Phone: Start: 09-05-2011 Patient Education [facility] Work Phone: Start: 07-28-2011 Assay of thyroxine total [facility] Work Phone: Start: 07-28-2011 Assay of thyroid stimulating hormone tsh [facility]; [facility] Work Phone: Start: 07-28-2011 Thyrotropin Qn TSH ([id number]) [facility] Work Phone: Start: 07-28-2011 Microsomal antibodies each [facility] Work Phone: Start: 07-28-2011 Protein electrophoretic fractj&quantj serum [facility]; [facility] Work Phone: Start: 07-28-2011 Protein mass conc Serum Protein Electrophoresis (SPEP) (50638) [facility] Work Phone: Start: 07-28-2011 Blood count complete automated [facility] Work Phone: Start: 07-28-2011 Sedimentation rate rbc non-automated [facility] Work Phone: Start: 07-28-2011 Antinuclear antibodies pancho [facility]; [facility] Work Phone: Start: 07-28-2011 Nuclear Ab IF titer (S) PANCHO (ANTINUCLEAR ANTIBODY) ([id number]) [facility] Work Phone: Start: 07-20-2011 Provider Instructions for Treatment [facility] Work Phone: Start: 07-15-2011 Potassium molar conc Potassium Serum (43403) [facility] Work Phone: Start: 07-15-2011 Potassium serum plasma/whole blood [facility]; [facility] Work Phone: Start: 07-15-2011 Potassium molar conc Potassium Serum (58276) [facility] Work Phone: Comment on above: PLEASE DO STAT AND CALL RESULTS TO DR. Mayo DUARTE Start: 07-15-2011 Potassium serum plasma/whole blood [facility]; [facility] Work Phone: Start: 06-30-2011 Provider Instructions for Treatment [facility] Work Phone: Start: 06-30-2011 Cul bact xcpt urine blood/stool aerobic isol [facility] Work Phone: Start: 06-27-2011 Culture bacterial blood aerobic w/id isolates [facility] Work Phone: Start: 06-27-2011 Blood count manual cell count each [facility] Work Phone: Start: 06-24-2011 Provider Instructions for Treatment [facility] Work Phone: Start: 06-24-2011 Cul bact xcpt urine blood/stool aerobic isol [facility] Work Phone: Start: 03-29-2011 End: 03-29-2011 PT-Orthotics PT-Orthotics [facility] Work Phone: Start: 02-25-2011 25 hydroxy includes fractions if performed [facility] Work Phone: Start: 02-07-2011 Provider Instructions for Treatment [facility] Work Phone: Start: 01-11-2011 Hemoglobin A1c/Hemoglobin.total mass fraction (Bld) Hemoglobin Glyclated (HGB A1C) (09655) [facility] Work Phone: Start: 01-11-2011 Hemoglobin glycosylated a1c [facility]; [facility] Work Phone: Start: 01-11-2011 Blood count manual cell count each [facility] Work Phone: Start: 01-11-2011 Comprehensive metabolic panel [facility] Work Phone: Start: 01-11-2011 Lipid panel [facility] Work Phone: Start: 01-11-2011 Urine albumin quantitative [facility] Work Phone: Start: 01-11-2011 Assay of thyroid stimulating hormone tsh [facility]; [facility] Work Phone: Start: 01-11-2011 Thyrotropin Qn TSH ([id number]) [facility] Work Phone: Start: 10-07-2010 Assay of thyroid stimulating hormone tsh [facility]; [facility] Work Phone: Start: 10-07-2010 Thyrotropin Qn TSH ([id number]) [facility] Work Phone: Start: 10-07-2010 Provider Instructions for Treatment [facility] Work Phone: Start: 10-07-2010 Assay of thyroid stimulating hormone tsh [facility]; [facility] Work Phone: Start: 10-07-2010 Thyrotropin Qn TSH (THYROID STIMULATING HORMONE) ([id number]) [facility] Work Phone: Start: 06-08-2010 Provider Instructions for Treatment [facility] Work Phone: Start: 01-21-2010 Patient Education [facility] Work Phone: Start: 01-21-2010 Provider Instructions for Treatment [facility] Work Phone: Start: 01-21-2010 Blood count manual cell count each [facility] Work Phone: Start: 01-21-2010 Blood occult peroxidase actv qual feces 1 deter [facility] Work Phone: Start: 01-21-2010 Leukocyte assmt fecal qual/semiquantitative [facility] Work Phone: Start: 01-21-2010 Ova&parasites direct smears concentration & id [facility] Work Phone: Start: 01-21-2010 Cul bact stool aerobic isol salmonella&shigell [facility] Work Phone: Start: 01-21-2010 Culture bacterial any source anaerobic iso&id [facility] Work Phone: Start: 01-04-2010 Lipoprotein blood rekha numbers & subclasses [facility]; [facility] Work Phone: Start: 01-04-2010 Protein mass conc LIPOPROTEIN, BLD, BY NMR (37460) [facility] Work Phone: Comment on above: recheck in 3 months Start: 12-22-2009 Assay of thyroid stimulating hormone tsh [facility]; [facility] Work Phone: Start: 12-22-2009 Thyrotropin Qn TSH (04885) [facility] Work Phone: Start: 12-22-2009 Assay of free thyroxine [facility]; [facility] Work Phone: Start: 12-22-2009 T4 free mass conc T4, FREE (THYROXINE) (89509) [facility] Work Phone: Start: 12-22-2009 Assay of triiodothyronine t3 free [facility]; [facility] Work Phone: Start: 12-22-2009 T3 free mass conc T3, FREE (TRIDOTHYRONINE) (97892) [facility] Work Phone: Start: 12-22-2009 Blood count manual cell count each [facility] Work Phone: Start: 12-22-2009 Comprehensive metabolic panel [facility] Work Phone: Start: 12-22-2009 Lipoprotein blood rekha numbers & subclasses [facility]; [facility] Work Phone: Start: 12-22-2009 Protein mass conc LIPOPROTEIN, BLD, BY NMR ([id number]) [facility] Work Phone: Start: 07-21-2009 Provider Instructions for Treatment [facility] Work Phone: Start: 11-04-2008 Provider Instructions for Treatment [facility] Work Phone: Start: 11-04-2008 Assay of thyroid stimulating hormone tsh [facility]; [facility] Work Phone: Start: 11-04-2008 Thyrotropin Qn TSH (27528) [facility] Work Phone: Start: 11-04-2008 Lipid panel [facility] Work Phone: Start: 11-04-2008 Lipoprotein blood rekha numbers & subclasses [facility]; [facility] Work Phone: Start: 11-04-2008 Protein mass conc LIPOPROTEIN, BLD, BY NMR (39340) [facility] Work Phone: Start: 10-29-2008 Assay of thyroid stimulating hormone tsh [facility]; [facility] Work Phone: Start: 10-29-2008 Thyrotropin Qn TSH (09494) [facility] Work Phone: Start: 10-29-2008 Urnls dip stick/tablet rgnt auto w/o microscopy [facility] Work Phone: Start: 10-29-2008 Urine albumin quantitative [facility] Work Phone: Start: 10-29-2008 Comprehensive metabolic panel [facility] Work Phone: Start: 10-29-2008 Blood count manual cell count each [facility] Work Phone: Start: 10-29-2008 Lipoprotein blood rekha numbers & subclasses [facility]; [facility] Work Phone: Start: 10-29-2008 Protein mass conc LIPOPROTEIN, BLD, BY NMR (87507) [facility] Work Phone: Start: 10-29-2008 Hepatic function panel [facility] Work Phone: Start: 10-29-2008 Lipid panel [facility] Work Phone: Start: 07-10-2008 Patient Education [facility] Work Phone: Start: 07-10-2008 Provider Instructions for Treatment [facility] Work Phone: Start: 07-10-2008 Cul bact xcpt urine blood/stool aerobic isol [facility] Work Phone: Start: 05-01-2007 Provider Instructions for Treatment [facility] Work Phone: Start: 04-18-2007 Provider Instructions for Treatment [facility] Work Phone: Start: 04-18-2007 Antibody kevon-irwin eb virus nuclear ag ebna [facility] Work Phone: Start: 04-18-2007 Antibody kevon-irwin eb virus viral capsid vca [facility] Work Phone: Start: 04-18-2007 Antibody kevon-irwin eb virus early antigen ea [facility] Work Phone: Start: 04-18-2007 Antinuclear antibodies pancho [facility]; [facility] Work Phone: Start: 04-18-2007 Assay of folic acid serum [facility] Work Phone: Start: 04-18-2007 Assay of thyroid stimulating hormone tsh [facility]; [facility] Work Phone: Start: 04-18-2007 C-reactive protein [facility]; [facility] Work Phone: Start: 04-18-2007 Cobalamin (Vitamin B12) mass conc VITAMIN B-12 (CYANOCOBALAMIN) (35363) [facility] Work Phone: Start: 04-18-2007 CRP mass conc C-REACTIVE PROTEIN (50689) [facility] Work Phone: Start: 04-18-2007 Cyanocobalamin vitamin b-12 [facility]; [facility] Work Phone: Start: 04-18-2007 Nuclear Ab IF titer (S) PANCHO (ANTINUCLEAR ANTIBODY) (39992) [facility] Work Phone: Start: 04-18-2007 Rheumatoid factor quantitative [facility] Work Phone: Start: 04-18-2007 Sedimentation rate rbc non-automated [facility] Work Phone: Start: 04-18-2007 Thyrotropin Qn TSH (22978) [facility] Work Phone: Start: 01-23-2007 Basic metabolic panel calcium total [facility] Work Phone: Comment on above: non fasting Start: 01-23-2007 Glucose mass conc Glucose, PP/2 Hour (14977) [facility] Work Phone: Comment on above: 75 gm Start: 01-23-2007 Glucose quantitative blood xcpt reagent strip [facility] Work Phone: Comment on above: 75 gm Start: 01-23-2007 Assay of thyroid stimulating hormone tsh [facility]; [facility] Work Phone: Start: 01-23-2007 Thyrotropin Qn TSH (01136) [facility] Work Phone: Start: 12-21-2006 Patient Education [facility] Work Phone: Start: 12-21-2006 Provider Instructions for Treatment [facility] Work Phone: Start: 12-21-2006 Assay of thyroid stimulating hormone tsh [facility]; [facility] Work Phone: Start: 12-21-2006 Thyrotropin Qn TSH (18190) [facility] Work Phone: Start: 12-21-2006 Creatine kinase total [facility] Work Phone: Comment on above: cardiac enzymes Start: 12-21-2006 Blood count complete automated [facility] Work Phone: Start: 12-21-2006 Lipid panel [facility] Work Phone: Start: 12-21-2006 Comprehensive metabolic panel [facility] Work Phone: Start: 12-21-2006 Blood count manual cell count each [facility] Work Phone: Start: 12-21-2006 Cul bact xcpt urine blood/stool aerobic isol [facility] Work Phone: Start: 12-21-2006 Iaadiadoo streptococcus group a [facility]; [facility] Work Phone: Start: 12-21-2006 S. pyogenes Ag IA Ql (Unsp spec) Rapid Strep Test, Office (96402) [facility] Work Phone: Start: 09-05-2006 Provider Instructions for Treatment [facility] Work Phone: Start: 10-27-2005 Provider Instructions for Treatment [facility] Work Phone: Patient referral [facility] Work Phone: [facility] Work Phone: [facility] Work Phone: [facility] Work Phone: [facility] Work Phone[facility] Work Phone: [facility] Work Phone: [facility] Work Phone[facility] Work Phone: [facility] Work Phone: [facility] Work Phone: [facility] Work Phone: [facility] Work Phone: [facility] Work Phone: [facility] Work Phone: [facility] Work Phone: [facility] Work Phone: [facility] Work Phone[facility] Work Phone: [facility] Work Phone[facility] Work Phone: [facility] Work Phone: [facility] Work Phone: [facility] Work Phone: [facility] Work Phone: [facility] Work Phone: [facility] Work Phone: [facility] Work Phone: [facility] Work Phone: [facility] Work Phone: [facility] Work Phone: [facility] Work Phone: [facility] Work Phone: [facility] Work Phone: [facility] Work Phone: [facility] Work Phone: [facility] Work Phone: [facility] Work Phone: [facility] Work Phone: [facility] Work Phone: [facility] Work Phone[facility] Work Phone: [facility] Work Phone: [facility] Work Phone: [facility] Work Phone: [facility] Work Phone: [facility] Work Phone: [facility]; [facility] Work Phone: [facility]; [facility] Work Phone: [facility]; [facility] Work Phone: [facility]; [facility] Work Phone[facility]; [facility] Work Phone: [facility]; [facility] Work Phone: Immunizations Immunization Date Immunization Notes Care Provider [facility] 11-16-2023 influenza, seasonal, injectable, preservative free Mayra Escobedo NP-C Work Phone: [facility] 12-08-2022 influenza, injectabl e, quadrivalent, preservative free [facility] 10-25-2022 tetanus toxoid, reduced diphtheria toxoid, and acellular pertussis vaccine, adsorbed [facility] 11-19-2021 influenza, injectabl e, quadrivalent, preservative free [facility] 11-19-2021 influenza, seasonal, injectable [facility] 11-25-2020 influenza, injectabl e, quadrivalent, preservative free [facility] 11-25-2020 influenza, seasonal, injectable [facility] 03-25-2020 Covid (Moderna) [facility] 02-26-2020 Covid (Moderna) [facility] 11-19-2019 influenza, injectabl e, quadrivalent, preservative free [facility] 11-19-2019 influenza, seasonal, injectable [facility] 11-15-2018 influenza, injectabl e, quadrivalent, preservative free [facility] 11-15-2018 influenza, seasonal, injectable [facility] 12-04-2017 influenza, injectabl e, quadrivalent, preservative free [facility] 12-04-2017 influenza, seasonal, injectable [facility] 11-16-2016 influenza, injectabl e, quadrivalent, preservative free [facility] 11-16-2016 influenza, seasonal, injectable [facility] 11-19-2015 influenza, injectabl e, quadrivalent, preservative free [facility] 11-19-2015 influenza, seasonal, injectable [facility] 11-19-2014 influenza, injectabl e, quadrivalent, preservative free [facility] 11-19-2014 influenza, seasonal, injectable [facility] 11-06-2013 influenza, injectabl e, quadrivalent, preservative free [facility] 11-06-2013 influenza, seasonal, injectable [facility] 02-28-2013 Influenza virus vaccine [facility] 02-28-2013 influenza, seasonal, injectable, preservative free Leatha Morrison [facility] Work Phone: Payers Date Payer Category Payer Self-pay [id number] 2022 Unknown [id number] 2016 Unknown [id number] 2006 Unknown [id number] 1950 Unknown [id number] 2.16.84 [id number] Unknown Unknown [id number] 2.16.8 [id number] Unknown [id number] 2.16.8 [id number] Unknown [id number] 2.16.8 [id number] Unknown [id number] 2.16.8 [id number] Unknown [id number] 2.16.8 [id number] Unknown [id number] 2.16.8 [id number] Unknown [id number] 2.16.8 [id number] Unknown [id number] 2.16.8 40.1.614650.3.579.2.462 Unknown [id number] 2.16.8 40.1.616065.3.579.2.462 Unknown [id number] 2.16.8 [id number] Unknown [id number] 2.16.8 40.1.932319.3.579.2.462 Unknown [id number] 2.16.8 40.1.094099.3.579.2.462 Unknown [id number] 2.16.8 40.1.209135.3.579.2.462 Unknown [id number] 2.16.8 40.1.458563.3.579.2.462 Unknown [id number] 2.16.8 [id number] Unknown [id number] 2.16.8 [id number] Unknown [id number] 2.16.8 [id number] Unknown [id number] 2.16.8 [id number] Unknown [id number] 2.16.8 [id number] Unknown [id number] 2.16.8 [id number] Social History Date Type Detail Facility Caffeine Use Never smoker [facility] Work Phone: Comment on above: 4 cups coffee/tea qd Light Lives with spouse, m arried Current Work/Study Status: Retired. [facility] Work Phone: Tobacco use: Never smoker. [facility] Work Phone: Retired. [facility]; [facility] Work Phone: Never smoker. [facility]; [facility] Work Phone: Start: 10-10-2020 End: 05-31-2023 Tobacco smoking status HIIS Unknown if ever smoked [facility] Start: 10-10-[address] [facility] Start: 10-10-[address] [facility] Start: 10-10-2020 Non-smoker [facility] Start: 1950 Sex Assigned At Female W [facility] Part-time. [facility] Work Phone: Start: 04-02-2024 Tobacco smoking status NHIS Ex-smoker (finding) [facility] Start: 04-02-2024 Tobacco Use Tobacco Use [facility] Medical Equipment Procedure Code Equipment Code Equipment Origin al Text Equipment Identifier Dates Revision, total arthroplasty, knee, with polyethylene liner replacement ([id number]) Tibial insert [id number] FDA Start: 06-14-2023 Goals Date Patient Goal Desired Activity /State Functional Status Date Assessment Result Facility 04-02-2024 Functional status Patient Activity Chair [facility] Work Phone: 04-02-2024 Functional status Standby Assist [facility] Work Phone: 06-15-2023 Functional status Ambulates [facility] Work Phone: Mental Status Date Assessment Result Facility 04-02-2024 Cognitive function Voice/Name [facility] Work Phone: 06-15-2023 Cognitive function Level Of Cons ciousness Awake;Alert;Appropriate;Follow s Commands [facility] Work Phone: 06-15-2023 Cognitive function Voice/Name [facility] Work Phone: 10-25-2022 Cognitive function Voice/Name [facility] Work Phone: Clinical Notes 12-19-2016 to 04-02-2024 Note Date & Type Note Facility 04-02-2024 Note [facility] Medical Records Department [address] [place] [address] Discharge Summary 04/02/24 1618 MR#: [id number] Acct: [id number] Name: HANNAH LIGHT Rep #: [id number] : 1950 74 From: Moreno Moody DO PCP: REBECCA Wallace Status:ADM PAYAL Location: [place] [address] Providers Date of Admission: 04/01/24 Primary Care Physician: Mayra Escobedo, JEMALC Consultations 04/01/24 18:49 Consult: Tele-Neurology Routine Consulting Provider: [facility] Reason for Consult: Acute Ischemic Stroke/TIA EMERGENT Consult: No MD Notified: Yes Date Notified: 04/01/24 Time Notified: 21:15 Method of Notification: Answering Service Nursing Unit Staff Notify [facility] of Tele-Neurology Consult: Yes Reason For Visit: OCCIPITAL STROKE Diagnosis Discharge Diagnosis (1) Vertigo: Status: Acute Code(s): R42 - Dizziness and giddiness (2) NOAH (acute kidney injury): Status: Acute Code(s): N17.9 - Acute kidney failure, unspecified Plan vertigo/presyncope visual changes. * Noted on CT of the brain, however, MRI brain did not show a stroke. CTA of the head and neck shows no LVO and minimal right carotid plaque, 50 to 60% left carotid plaque and unremarkable vertebrals * Echo shows an EF 60%. * Not felt to be a CVA by neurology. Concerning it could be an atypical migraine and recommend follow up with opthalmology. NOAH * resolved w IVF Migraine * patient states that she has migraines 3 to 7 days. Offered to give treatment to see if we can break the migraine. She would prefer to go home. That she may be having symptoms regards revision due to migraines that she is currently having. Counterintelligence Agent give her a dose of dexamethasone which she was agreeable to but like to go home. Think that is reasonable I do recommend that she follow-up with neurology to see what abortive treatments that she may be eligible for. Syncope * Chronic and sees cardiology. She has a follow-up appointment in the coming months to be evaluated. DVT prophylaxis -Subcu Lovenox 40 daily CODE STATUS -Full code Medications at Discharge Home Medications levomefolate 7.5 mg-algal oil 90.314 mg capsule (Deplin (algal oil)) 15 mg PO DAILY NERVES 07/23/13 amlodipine 10 mg tablet 10 mg PO DAILY BP #30 tabs 03/14/17 ergocalciferol (vitamin D2) 1,250 mcg (50,000 unit) capsule (Vitamin D2) 50,000 unit PO .2X WEEK SUPPLEMENT 05/31/23 ferrous sulfate 325 mg (65 mg iron) tablet 325 mg PO .QOD SUPPLEMENT 05/31/23 levothyroxine 125 mcg capsule 187.5 mcg PO .mondaydaily THYROID 05/31/23 levothyroxine 125 mcg tablet 125 mcg PO MOTUWETHFRSA THYROID 05/31/23 losartan 25 mg tablet 25 mg PO DAILY BP 05/31/23 chlorthalidone 25 mg tablet 25 mg PO QHS cholesterol 03/28/24 lorazepam 0.5 mg tablet 0.5 mg PO BID PRN anxiety 03/28/24 meclizine 25 mg tablet 25 mg PO 4X/DAY PRN dizziness 03/28/24 pantoprazole 40 mg tablet,delayed release 40 mg PO QDAY 03/28/24 venlafaxine 37.5 mg capsule,extended release 24 hr 37.5 mg PO QDAY 03/28/24 acetaminophen 500 mg tablet 1,000 mg PO TID PRN pain 04/01/24 alendronate 70 mg tablet 70 mg PO .dailysundays bone 04/01/24 ascorbic acid (vitamin C) 500 mg capsule,extended release 500 mg PO BID 04/01/24 aspirin 81 mg chewable tablet 81 mg PO DAILY 04/01/24 Hospital Course Operations None Procedures 2-D Echocardiogram Summary of Care Provided Minutes Spent on Discharge: 35 Hospital Course: Patient presents with syncope and left visual field deficit. CAT scan showed a right occipital stroke but MRI did not show that. Patient was seen by neurology who did not feel that she did have a stroke but this may be more related with her having chronic migraines. Patient said that she has chronic migraines 3 out of 7 days/week. I did recommend that she follow-up with neurology and give her a dose of 10 g of IV dexamethasone prior to discharge. Weight / BMI Weight Weight: 80.002 kg Body Mass Index (BMI) 31.2 ABG / Lab / Microbiology Data 04/02/24 03:55 04/02/24 03:55 Laboratory: Laboratory Results - last 24 hr 04/01/24 12:30: Hemoglobin A1c 5.8 H 04/02/24 03:55: WBC 6.1, RBC 4.15 L, Hgb 12.2, Hct 37.2, MCV 89.6, MCH 29.4, MCHC 32.8, RDW Std Deviation 41.7, RDW Coeff of Sharmila 12.7, Plt Count 207, MPV 10.6, Immature Gran % (Auto) 0.300, Neut % (Auto) 50.0, Lymph % (Auto) 37.2, [place] % (Auto) 10.6 H, Eos % (Auto) 1.6, Baso % (Auto) 0.3, Absolute Neuts (auto) 3.1, Absolute Lymphs (auto) 2.27, Nucleated RBC % 0, Sodium 138, Potassium 3.8, Chloride 108 H, Carbon Dioxide 24.0, Anion Gap 6, BUN 14, Creatinine 0.84, Estim Creat Clear Calc 58.85, Est GFR (MDRD) Af Amer 85, Est GFR (MDRD) Non-Af 70, BUN/Creatinine Ratio 16.6, Glucose 104, Calcium 9.1, Phosphorus 4.2, Magnesium 2.2, Total Bilirubin 0.50, AST 13 L, ALT 23, Alkaline Phosphatase 59, Total Protein 6.0 L, Albumin (more content not included)... [facility] 03-14-2024 Evaluation note Diagnosis Onset Date Resolution Left shoulder pain acute 2024 3:11pm Primary osteoarthritis, left shoulder acute March 14 3:11pm NOAH (acute kidney injury) resolved April 01 025 3:23pm Vertigo resolved April 01, 2024 3:23pm Occipital stroke deleted April 01, 2024 3:23pm Dyslipidemia chronic April 26, 2 025 3:24pm Hypertension April 26, 2 025 3:24pm Syncope chronic April 26 3:24pm [facility] Work Phone: 1(288) 324-717001-13-2025 Evaluation note* Diagnosis Onset Date Resolution Status Admit Date Left shoulder pain acute 2024 2:43pm Primary osteoarthritis, left shoulder acute March 04 2:43pm Left shoulder pain acute r y 2024 3:11pm Primary osteoarthritis, left shoulder acute March 14 3:11pm NOAH (acute kidney injury) resolved April 01, 2024 3:23pm Vertigo resolved April 01, 2024 3:23pm Occipital stroke deleted April 01, 2024 3:23pm Dyslipidemia chronic April 26, 2 025 3:24pm Hypertension chronic April 26, 2 025 3:24pm Syncope chronic April 26 3:24pm [facility] Work Phone: 1(462) 482-932604-25-2024 Discharge summary Author Levi Marti [facility] June 15, 2023 9:06am Note Date/Time June 15, 2023 8:5 9am [facility] Medical Records Department [address] [place] [address] Instructions for Home/Discharge Instructions 06/15/23 0858 MR#: [id number] Acct: [id number] Name: HANNAH LIGHT Rep #:[id number] : 1950 73 From: Levi OLSEN PATatumC PCP: Mayra Escobedo NP-C Status:ADM I N Discharge Instructions Diet Discharge Diet: No restrictions Activity Discharge Activity: May Not Drive (No driving for 6 weeks postoperatively. Mustalso be off all narcotics and able to walk 100 feet without the use of cane or walker.) May shower in (days): 1 (Please turn dressing away from water. Okay to get wet as long as dressing is intact to skin.) Ice area for (Minutes): 20 (Every 1-2 hours while awake[address] Please place barrier between the skin and ice pack.) Weight Bearing Status: Weight bearing as tolerated Keep extremity elevated above heart level: Operative Extremity Dressing / Incision Call your doctor if your incision/area has: Continuous Slow Oozing, Sudden Increased Bleeding, Increased Pain/ Swelling, Increased Redness and Foul Smelling Discharge Call your doctor if you observe: Fever of 101 or Higher, Coldness, Increased Pain, Numbness or Tingling, Change in Color, Shortness of breath, Chest pain, Calf discomfort and Uncontrolled pain Remove Dressing in: 4 days (Okay to remove dressing on June 19, 2023) Additional Dressing/Incision Instructions:: Follow [facility] Post-op Instructions. Once postoperative dressing has been removed only use gentle soap and water overthe incision. Do not use any ointments, Neosporin, salves, alcohol pads over the incision for 6 weeks postoperatively. Do not submerge underwater for 6 weeks postoperatively. Continue with DAVID hose/elastic stockings for 2 weeks postoperatively. May remove at nighttime but needs to be placed back on the leg during the day. Do NOT use alcohol with narcotic pain medication. Do NOT make important decisions while taking narcotic medication. If you have problems with taking your medication (rash, itching, nausea, etc.) call the office at once. Follow Up Care Test Results: Test results from this visit will be discussed in further detail at your follow- up appointment, if applicable. Discharge Plan Admission Admit Date/Time: 06/14/23 09:53 Attending Provider: Brennon Ramirez Primary Care Provider: Mayra Escobedo Discharge Orders/Prescriptions Prescriptions: New acetaminophen 500 mg Tablet 1,000 mg PO TID Qty: 0 0RF Rx Instructions: Do not take more than 3000 mg Tylenol in a 24-hour period. aspirin 81 mg Tablet,Chewable 81 mg PO BIDCM 30 Days Qty: 60 0RF Rx Instructions: Take 81 mg aspirin twice daily for 4 weeks postoperatively for DVT prophylaxis. famotidine 20 mg Tablet 20 mg PO DAILY 30 Days Qty: 30 0RF doxycycline monohydrate 100 mg Capsule 100 mg PO BID 13 Days Qty: 26 0RF Rx Instructions: Take for 2 weeks postoperatively Patrick (with collagen) 7-7-1.5 gram Powder In Packet 1 packet PO DAILY Qty: 0 0RF meloxicam 7.5 mg Tablet 7.5 mg PO BID 30 Days Qty: 60 0RF Rx Instructions: Do not take any other nonsteroidal anti-inflammatories while using meloxicam/Mobic. sennosides-docusate sodium [Stool Softener-Stimulant Laxat] 8.6-50 mg Tablet 2 tab PO BID 3 Days Qty: 12 0RF Rx Instructions: Take until first bowel movement, then as needed tramadol 50 mg Tablet 50 - 100 mg PO Q6H PRN PRN (Reason: Pain Score 4-10) 7 Days Qty: 42 0RF Continued pravastatin 20 MG tablet 20 mg PO QHS Qty: 30 0RF Patient Comments: LOWERS CHOLESTEROL Deplin (algal oil) 7.5 MG tablet 15 mg PO DAILY venlafaxine 37.5 mg capsule,extended release 24hr 37.5 mg PO DAILY Patient Comments: TAKE 1 CAPSULE BY MOUTHCONCE DAILY losartan 25 mg tablet 25 mg PO DAILY Patient Comments: TAKE 1 TABLET BY MOUTHCONCE DAILY ergocalciferol (vitamin D2) [Vitamin D2] 1,250 mcg (50,000 unit) capsule 50,000 unit PO .2X WEEK Patient Comments: TAKE 1 CAPSULE BY MOUTH TWICE WEEKLY levothyroxine 125 mcg capsule 187.5 mcg PO DAILY Patient Comments: MONDAY 1 1/2 TABLETS, MOTUWETHFRSA 1 TAB ferrous sulfate 325 MG tablet 325 mg PO .QOD Patient Comments: IRON SUPPLEMENT levothyroxine 125 MCG tablet 125 mcg PO MOTUWETHFRSA Patient Comments: FOR HYPOTHYROIDISM amlodipine 10 MG tablet 10 mg PO DAILY Qty: 30 11RF Patient Comments: LOWERS BLOOD PRESSURE Referrals / Follow Up: Mayra Escobedo NP-C [Primary Care Provider] - Levi Marti PA-C [Med Staff - [facility]] - 06/28/23 3:00 pm Disposition Disposition (needs filled in before D/C Order can be placed): Home, Self Care 06/15/23905<Electronically signed by Levi OLSEN PA-C>Levi OLSEN PA-C CC: REBECCA Escobedo ~ Signed [facility] Work Phone: [phone]) 107-301104-25-2024 Progress note Author [facility] June 15, 2023 8:58am Note Date/Time June 15, 2023 8:5 8am [facility] Medical Records Department [address] [place] [id number] Progress Note - Orthopedic 06/15/23 0854 MR#: [id number] Acct: [id number] Name: HANNAH LIGHT Rep #:[id number] : 1950 73 From: Levi OLSEN PA-C PCP: REBECCA Wallace Status:ADM I N Location: [place] [address] Subjective Subjective The patient was sitting in bed upon examination. Patient denies any chest pain,shortness of breath, dizziness, lightheadedness, nausea or vomiting, or calf pain. Pain is controlled on medications. No adverse overnight events. Christian is doing very well this morning. She has no complaints. Patient is wishing to try to go home today. Objective Data Objective Data Vital Signs: Vital Signs Temp Pulse Resp BP Pulse Ox O2 Del Method O2 Flow Rate 98.7 F 59 L 16 154/75 H 96 Room Air 2 06/15/23 07:55 06/15/23 07:55 06/15/23 07:55 06/15/23 07:55 06/15/23 08:11 06/15/23 08:11 06/14/23 16:06 Oxygen Flow Rate (L/min) 2 Oxygen Delivery Method Room Air Weight: 81.4 kg Body Mass Index (BMI) 30.8 Intake & Output: Intake and Output for Last 24 Hours 06/13/23 06/14/23 06/15/23 23:59 23:59 23:59 Intake Total 3307 / 3707 850 / 850 Balance 3307 / 3707 850 / 850 Lab / Micro Data 06/15/23 06:05 06/15/23 06:05 Labs: Laboratory Results - last 24 hr 06/14/23 10:53: POC Glucose 90 06/15/23 06:05: WBC 15.4 H, RBC 3.96 L, Hgb 11.6 L, Hct 34.7 L, MCV 87.6, MCH 29.3, MCHC 33.4, RDW Std Deviation 39.5, RDW Coeff of Sharmila 12.2, Plt Count 218, MPV 11.2, Sodium 136, Potassium 4.3, Chloride 103, Carbon Dioxide 28.0, Anion Gap 5, BUN 13, Creatinine 0.79, Estim Creat Clear Calc 64.64, Est GFR (MDRD) Af Amer 91, Est GFR (MDRD) Non-Af 75, BUN/Creatinine Ratio 16.4, Glucose 131 H, Calcium 8.7 Micro: Microbiology 06/02/23 07:05 Swab (Method) Nasal Screen MRSA/MSSA - Final Radiography Diagnostic Testing: Radiology Impression Knee X-Ray 06/14/23 15:00 IMPRESSION: Status post total knee replacement. There is good alignment. Soft tissue changes. Electronically Signed: Jimi Morales MD at 15:39 EDT , Physical Exam Narrative Vital signs stable and afebrile. SCDs and DAVID hose are in place bilaterally Patient is able to plantarflex and dorsiflex actively. Sensation is intact to light touch to saphenous, sural, superficial and deep peroneal, and tibial distribution. Dressing is clean dry and intact. Negative Homans bilaterally, negative signs and symptoms of DVT. Const alert, oriented x3 and no apparent distress Assessment & Plan Assessment/Plan (1) Status post revision of total replacement of right knee: PLAN: 1. S/P revision right total knee arthroplasty with popliteal tendon release POD #1 2. Continue Pain Medications: Tylenol, meloxicam, tramadol. Do not take any other nonsteroidal anti-inflammatories while using meloxicam/Mobic. 3. DVT Prophylaxis: Take 81 mg aspirin twice daily for 4 weeks postoperatively for DVT prophylaxis. Patient denies past history of DVT or pulmonary embolism. 4. PT/OT: Weightbearing as tolerated with walker 5. H & H: 11.6/34.7, asymptomatic. Labs have been reviewed and stable. 6. Reactive leukocytosis: 15.4, Afebrile. Patient did receive Decadron intraoperatively. No clinical signs of infection. 7. Currently on doxycycline for 2 weeks postoperatively due to revision total knee arthroplasty and history of staph positive screening. I discussed with thepatient potential side effects of doxycycline including sensitivity to the sunlight and increased risk of skin burn. Recommend patient take appropriate precautions. Also recommend patient to take probiotic while on the antibiotic. Patient voiced understanding agreement. Patient does have history of C. difficile in the past. She was instructed to reach out and contact our office if having any complications. We did discuss this in detail today. 8. Continue postoperative medical management per medicine 9. Encouraged Incentive Spirometry 10. Disposition: Plan will be for discharge home today as long as patient remains medically stable, tolerates therapy, and pain is adequately controlled. She does not have physical therapy established. She will like to be seen at [facility]. I will have case management discussed with patient and schedule appropriate appointment. She has been instructed to continue those exercises through the weekend and plan for outpatient therapy early next week. We discussed postoperative dressing and removal. She would like all her medications E scribed to [facility] pharmacy. She will follow-up per postoperative instructions. She was instructed to contact her office with any complications postoperatively. She voiced understanding andasked all questions. I have reviewed the [place] Automated Rx Reporting System (OARRS) report for this patient for refill pattern and other prescriber involvement as part of the appropriate surveillance for the provision of acute and chronic controlled medications. The report was requested and reviewed on the date of this entry and was considered in the prescribing process. This dictation was created using voice recognition software. Phonetic and/or grammatical errors may exist. 06/15/23 0858 <Electronically signed by Levi OLSEN PA-C> Cosigner Signature (if applicable): CC: ~ Signed [facility] Work Phone: 1(421) 222-372304-24-2024 Procedure [facility] 06-14-2023 History and physical note Author Brennon Ramirez [facility] June 14, 2023 11:32am Note Date/Time June 13, 2023 10: 53pm [facility] Medical Records Department [address] [place] [address] History & Physical Exam 06/13/23 2252 MR#: [id number] Acct: [id number] Name: HANNAH LIGHT Rep #:[id number] : 1950 73 From: Alanna OLSEN PCP: REBECCA Wallace Status:ADM I N Location: [facility] A-2 HPI - General HPI Narrative History and Physical? Patient Name: Hannah AmbroseOB: 1950 From:? ALANNA NIETO PA-C? DATE OF PRE-OPERATIVE EXAM: 06/08/2023 DATE OF SURGERY:? 06/14/2023 SCHEDULED PROCEDURE: RELEASE RIGHT POPLITEAL TENDON, SCAR TISSUE DEBRIDEMENT, POLYETHYLENE EXCHANGE? HISTORY OF PRESENT ILLNESS: Patient is a 73-year-old female with a chief complaint of right knee pain. Patient complains of pain since the knee had been replaced. She has a history ofright total knee surgery done August [address] Gibbs followed by arthroscopy for debridement of scar tissue. The pain is 9 on a scale of 10. The pain is increased with walking any distance, and standing still for long periods of time. The use of stairs does increase her pain. She notes clicking in the right knee. The pain is increased with stairs, kneeling, squatting. The pain is located over the lateral knee at the distal ITB. The pain is located laterally and on the top radiating into the thigh. The patient states that the pain does awaken them at night. Activity modification includes a reduced ability to do herdaily activities. Previous treatments include physical therapy, cortisone injection, pain management and 2 previous knee arthroscopies. She reports her last injection completed in 2019 provided minimal relief.? patient has failed conservative treatment and would like to proceed with polyethylene exchange and popliteal tendon release.? REVIEW OF SYSTEMS: ROS: Const: Denies anorexia, anxiety, change in appetite, fever and weight change,hard of hearing . Eyes: Reports impaired vision. CV: Denies chest pain, heart murmur, irregular heartbeat and peripheral vasculardisease. Resp: Denies asthma, cough, pneumonia, sleep apnea, shortness of breath, tuberculosis and wheezing. GI: Denies constipation, diarrhea, heartburn, nausea, bloody stools and vomiting. : Denies female genital problems. Denies incontinence. Musculo: Reports leg swelling, trouble walking and weakness and limp. Skin: Reports history of shingles and tattoo, but denies Raynaud's. Neuro: Denies ambulatory dysfunction, dizziness, numbness/tingling and tremor. Psych: Reports depression and stress, but denies anxiety, insomnia and mental illness. Jesus/Lymph: Reports bleeding/bruising tendency and past transfusion, but denies anemia. Reviewed, no changes. PAST MEDICAL HISTORY: Advance Care Plan: No Advance Directives Effective Date: 07/19/2018 PMH: Medical Problems: Arthritis, High Blood Pressure, Thyroid Disease, Psoriasis, Leaking Heart Valve Accidents: Fracture - R ANKLE Surgical Hx: Appendectomy, Gallbladder, Tubal Ligation, Carpal Tunnel, Heel Spur LT Knee Arthroscopy - (08/18/2009) [email or web address] Knee Arthroscopy - (12/23/2011) CHRISSY @ [facility] RT TKR - (08/20/2012) CHRISSY @ [facility] RT THR - (03/25/2013) [email or web address] Knee Arthroscopy RT - (07/31/2013) [email or web address] Anesthesia Complications: None Assistive Devices: Glasses Reviewed, no changes. 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 Personal Habits:? Tobacco Use: Patient has never smoked.Cigarette Use: Never.Smokeless Tobacco: Never Used Smokeless Tobacco.E-Cigarette Use: Never used.Alcohol: Denies use.Drug Use: Denies Use.Enjoy Exercising: Exercises 1-3 x/month. Reviewed, no changes. VITALS: Ht: 63 Wt: 180lb Wt k.648 BMI: 31.9 BP: 159/85 Pulse: 84 Resp: 16 T: 97.9 T: 36.6C Pain Level: 8 O2SatR: 99 ALLERGIES: Lidoderm - Pain Patches; Hives & Severe Itching Albuterol - Mouth And Tongue Swells? MEDICATIONS: Mupirocin 2 % use qtip and apply inside each nostril twice a day until the day of surgery, Norvasc 10 mg 1 po qday, Synthroid 150 mcg 1 po qday, Deplin 15 15- 90.314 mg 1po qday, Losartan Potassium 25 mg 1 by mouth every day, Tylenol ExtraStrength 500 mg 2 by mouth every 8 hours PRE-OP EXAM:? General appearance:NORMAL? ? ? Other: Eyes: Conjunctivae and lids: NORMAL? Pupils: ERR Ears, Nose, Mouth, and Throat: NORMAL? Other: Inspection of lips, teeth and gums: NORMAL? ?Other: Neck: Examination of neck: no masses noted. Respiratory: Assessment of respiratory effort: NORMAL? ?Other: ?Auscultation of lungs: clear to auscultation no wheezes, rhonchi or rales. Cardiovascular:? Auscultation of heart: regular rate and rhythm, no murmurs, gallops or rubs. Exam of carotid arteries: NORMAL? ?Other: Gastrointestinal:? Exam of abdomen: soft, nontender, nondistended bowel sounds present. Lymphatic:? Palpation of nodes in neck:? NORMAL? ? ?Other: ? Palpation of nodes in Axillae: NORMAL? ?Other: Neurological: see below Psychiatric:? Orientation to time, place and person: NORMAL? ? ?Other: ?Mood and affect: NORMAL? ?Other: PHYSICAL EXAMINATION: Exam: Const: Appears healthy. No signs of apparent distress present. Alert and oriented x 3. Musculo: Knees: ?Insp/Palp: Right knee: Inspection: TTP over the posterior tibial femoral condyle, mild effusion, scar is well healed, small click with motion Stability: 1 MM MCL laxity, 2 MM LCL laxity. ROM: 0-120 Dynamic range of motion patient has a palpable click in the posterior lateral knee at the area of the popliteus.? In palpating this area patient reports that the pain reproduced with palpation in the clinic is her primary source of pain. ?Instability Tests: Posterior drawer test. Negar test. Integumentary: Skin is warm, dry and intact. Neuro: Sensation to light touch is intact in the lower extremities deep peroneal, lower extremities dorsal cutaneous, lower extremities saphenous, lowerextremities sural and lower extremities tibial nerve distribution. IMAGING STUDIES: Right knee radiographs bilateral standing AP, tunnel, lateral and sunrise views reveal stable well aligned total knee replacement with well fixed implants.? Examination of the implants patient does have somewhat of a size mismatch as shehas good ADP contours on the femoral component however medial lateral contours of the component show that there is likely medial lateral overhang. IMPRESSION: 1. right painful total knee? 2. Arthritis 3. High Blood Pressure 4. Thyroid Disease 5. Psoriasis 6. Leaking Heart Valve PLAN: Patient denies history of DVT or PE, open wounds or sores over the body, no allergies to antibiotics and no current antibiotic use. No current dental issues Aspirin 81 twice a day ?4 weeks for DVT prophylaxis postoperatively doxycycline 100mg BID x 2 weeks following surgery At this time patient has consented to proceed with a RELEASE RIGHT POPLITEAL TENDON, SCAR TISSUE DEBRIDEMENT, POLYETHYLENE EXCHANGE .? Dr. Ramirez? did discuss and review with the patient all treatment options including surgical versus nonsurgical options.? Patient does wish to proceed with the above-stated procedure.? Potential risk, benefits, and complications of the procedure were discussed in detail including but not limited to , infection, nerve and blood vessel damage, persistent pain, numbness, tingling, paresthesias, blood clot, pulmonary embolism, and requirement for possible further surgery.? The patient expressed full understanding and has no further questions for the doctor.? Patient does agree to proceed with the above-stated procedure and has signed the surgery consent form. I have reviewed the [place] Automated Rx Reporting System (OARRS) report for this patient for refill pattern and other prescriber involvement as part of the appropriate surveillance for the provision of acute and chronic controlled medications.? The report was requested and reviewed on the date of this entry and was considered in the prescribing process. Discussed with the patient the risks associated with the COVID-19 virus including the risk of exposure while at the hospital.? The patient was reassured local hospitals have low infection rates and taken all necessary precautions to limit patient exposure to COVID-19.? Limiting the patient's time in the hospitalmay decrease their exposure to COVID-19.? The patient was notified that we will need to comply with any screening or testing the hospital wishes to perform and that surgery may be delayed for any positive test results. [facility] Medical History (Updated 05/31/23 @ 11:23 by Meera Rojas) Anxiety Arthritis Back pain Cardiology follow-up encounter Depression Gastric reflux High cholesterol History of Clostridium difficile infection History of hiatal hernia History of pain when walking History of steroid therapy Hypertension Injury of head and neck Non-smoker Post-menopausal Rheumatoid arthritis Shortness of breath on exertion Thyroid disease Wears glasses Home Medications pravastatin 20 mg tablet 20 mg PO QHS CHOLESTEROL #30 TABLETS 06/13/13 [Rx Last Taken Unknown] levomefolate 7.5 mg-algal oil 90.314 mg capsule (Deplin (algal oil)) 15 mg PO DAILY NERVES 07/23/13 [History Last Taken Unknown] amlodipine 10 mg tablet 10 mg PO DAILY BP #30 tabs 03/14/17 [Rx Last Taken Unknown] ergocalciferol (vitamin D2) 1,250 mcg (50,000 unit) capsule (Vitamin D2) 50,000 unit PO .2X WEEK SUPPLEMENT 05/31/23 [History Last Taken Unknown] ferrous sulfate 325 mg (65 mg iron) tablet 325 mg PO .QOD SUPPLEMENT 05/31/23 [History Last Taken Unknown] levothyroxine 125 mcg capsule 187.5 mcg PO DAILY THYROID 05/31/23 [History Last Taken Unknown] levothyroxine 125 mcg tablet 125 mcg PO MOTUWETHFRSA THYROID 05/31/23 [History Last Taken Unknown] losartan 25 mg tablet 25 mg PO DAILY BP 05/31/23 [History Last Taken Unknown] venlafaxine 37.5 mg capsule,extended release 24 hr 37.5 mg PO DAILY ANXIETY 05/31/23 [History Last Taken Unknown] Allergy/AdvReac Type Severity Reaction Status Date / Time albuterol Allergy Swelling Verified 05/31/23 11:02 lidocaine [From Lidoderm] Allergy Hives Verified 05/31/23 11:02 Family History Other Heart disease Surgical History (Updated 05/31/23 @ 11:23 by Meera Rojas) History of carpal tunnel surgery of right wrist History of hip replacement History of laparoscopic cholecystectomy Hx of appendectomy Hx of arthroscopic knee surgery Hx of surgical procedure Hx of tubal ligation Total knee replacement status Social History (Updated 10/25/22 @ 10:[address] Kit Still MD) household members: spouse Smoking Status: Never smoker Vital Signs Vital Signs Vital Signs: Weight Weight: 83.915 kg Results Lab / Micro Data 06/02/23 07:05 06/02/23 07:05 06/13/23 2253 <Electronically signed by Alanna OLSEN> Cosigner Signature (if applicable): CC: REBECCA Escobedo; Dr. Brennon Ramirez MD; PRETTY Marsh~ Signed ADDENDUM by Dr. Brennon Ramirez MD on 06/14/23 at 1131 Addendum I have examined the patient and the H&P has been reviewed. There are no clinicalchanges since date of exam. 06/14/23 1131<Electronically signed by Brennon Ramirez MD> Cosigner Signature (if applicable): cc: REBECCA Escobedo; Dr. Brennon Ramirez MD; PRETTY Marsh ~* Signed [facility] Work Phone: 1(524) 290-843010-25-2022 Instructions* Name Dates Details Patient Instructions Start:14-Dec-2021 Instruction Type:Provider Instructions for Treatment How to Access Health Informa tion Online using Patient Portal and 3rd [employer] Apps Start:14-Dec-2021 Instruction Type:Patient Education Patient Instructions Indication:Encounter for annual general medical examination with abnormal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 tion online - Detail Indication:Physical exam for work/school/camp (Renamed from Encounter for school health examination) Start:18-Nov-2014 Instruction Type:Patient Education Patient Instructions Indication:Physical exam for work/school/camp (Renamed from Encounter for school health examination) Start:18-Nov-2014 Instruction Type:Provider Instructions for Treatment How to access health informa tion online Indication:Sore throat Start:14-Oct-2014 Instruction Type:Patient Education How to access health informa tion online - Detail Indication:Sore throat Start:14-Oct-2014 Instruction Type:Patient Education Patient Instructions Indication:Sore throat Start:14-Oct-2014 Instruction Type:Provider Instructions for Treatment Patient Instructions Indication:Annual physical exam Start:12-Nov-2013 Instruction Type:Provider Instructions for Treatment How to access health informa tion online - Detail Indication:Annual physical exam Start:12-Nov-2013 Instruction Type:Patient Education How to access health informa tion online Indication:Annual physical exam Start:12-Nov-2013 Instruction Type:Patient Education Patient Instructions Indication:Knee pain Start:21-Jan-2013 Instruction Type:Provider Instructions for Treatment Patient Instructions Indication:Hypercholesterolemia Start:16-Nov-2012 Instruction Type:Provider Instructions for Treatment Patient Instructions Indication:Nausea Start:31-May-2012 Instruction Type:Provider Instructions for Treatment Patient Instructions Indication:Low back pain potentially associated with radiculopathy Start:03-Apr-2012 Instruction Type:Provider Instructions for Treatment [facility] Work Phone: Instructions* Name Dates Details Patient Instructions Indication:Vertigo Start:06-Apr-2021 Instruction Type:Provider Instructions for Treatment How to Access Health Informa tion Online using Patient Portal and 3rd [employer] Apps Indication:Vertigo Start:06-Apr-2021 Instruction Type:Patient Education Patient Instructions Indication:BMI 33.0-33.9,adult Start:11-Jan-2021 Instruction Type:Provider Instructions for Treatment How to Access Health Informa tion Online using Patient Portal and 3rd [employer] Apps Indication:BMI 33.0-33.9,adult Start:11-Jan-2021 Instruction Type:Patient Education Patient Instructions Indication:BMI 33.0-33.9,adult Start:09-Nov-2020 Instruction Type:Provider Instructions for Treatment How to Access Health Informa tion Online using Patient Portal and 3rd [employer] Apps Indication:BMI 33.0-33.9,adult Start:09-Nov-2020 Instruction Type:Patient Education Patient Instructions Indication:BMI 33.0-33.9,adult Start:27-Oct-2020 Instruction Type:Provider Instructions for Treatment How to Access Health Informa tion Online using Patient Portal and 3rd [employer] Apps Indication:BMI 33.0-33.9,adult Start:27-Oct-2020 Instruction Type:Patient Education Patient Instructions Indication:Nonsmoker Start:20-Oct-2020 Instruction Type:Provider Instructions for Treatment How to Access Health Informa tion Online using Patient Portal and 3rd [employer] Apps Indication:Nonsmoker Start:20-Oct-2020 Instruction Type:Patient Education Patient Instructions Indication:Nonsmoker Start:13-Mar-2020 Instruction Type:Provider Instructions for Treatment How to Access Health Informa tion Online using Patient Portal and [employer]rd [employer] Apps Indication:Nonsmoker Start:13-Mar-2020 Instruction Type:Patient Education How to access health informa tion online Indication:Nonsmoker Start:25-Sep-2019 Instruction Type:Patient Education How to access health informa tion online - Detail Indication:Nonsmoker Start:25-Sep-2019 Instruction Type:Patient Education Patient Instructions Indication:BMI 33.0-33.9,adult Start:25-Sep-2019 Instruction Type:Provider Instructions for Treatment How to access health informa tion online Indication:Nonsmoker Start:13-Aug-2019 Instruction Type:Patient Education How to access health informa tion online - Detail Indication:Nonsmoker Start:13-Aug-2019 Instruction Type:Patient Education Patient Instructions Indication:BMI 33.0-33.9,adult Start:13-Aug-2019 Instruction Type:Provider Instructions for Treatment How to access health informa tion online Indication:Nonsmoker Start:05-Nov-2018 Instruction Type:Patient Education How to access health informa tion online - Detail Indication:Nonsmoker Start:05-Nov-2018 Instruction Type:Patient Education Patient Instructions Indication:BMI 33.0-33.9,adult Start:05-Nov-2018 Instruction Type:Provider Instructions for Treatment How to access health informa tion online - Detail Indication:Nonsmoker Start:25-Oct-2018 Instruction Type:Patient Education Patient Instructions Indication:Tonsil stone Start:25-Oct-2018 Instruction Type:Provider Instructions for Treatment How to access health informa tion online Indication:Nonsmoker Start:19-Jun-2018 Instruction Type:Patient Education How to access health informa tion online - Detail Indication:Nonsmoker Start:19-Jun-2018 Instruction Type:Patient Education Patient Instructions Indication:Nonsmoker Start:19-Jun-2018 Instruction Type:Provider Instructions for Treatment How to access health informa tion online Indication:Nonsmoker Start:15-Nov-2017 Instruction Type:Patient Education How to access health informa tion online - Detail Indication:Nonsmoker Start:15-Nov-2017 Instruction Type:Patient Education Patient Instructions Indication:Nonsmoker Start:15-Nov-2017 Instruction Type:Provider Instructions for Treatment How to access health informa tion online Indication:Hypercholesterolemia Start:15-Nov-2016 Instruction Type:Patient Education How to access health informa tion online - Detail Indication:Hypercholesterolemia Start:15-Nov-2016 Instruction Type:Patient Education Patient Instructions Indication:BMI 33.0-33.9,adult Start:15-Nov-2016 Instruction Type:Provider Instructions for Treatment How to access health informa tion online Indication:Knee pain, right Start:04-Sep-2015 Instruction Type:Patient Education How to access health informa tion online - Detail Indication:Knee pain, right Start:04-Sep-2015 Instruction Type:Patient Education Patient Instructions Indication:Knee pain, right Start:04-Sep-2015 Instruction Type:Provider Instructions for Treatment How to access health informa tion online Indication:Physical exam for work/school/camp (Renamed from Encounter for school health examination) Start:18-Nov-2014 Instruction Type:Patient Education How to access health informa tion online - Detail Indication:Physical exam for work/school/camp (Renamed from Encounter for school health examination) Start:18-Nov-2014 Instruction Type:Patient Education Patient Instructions Indication:Physical exam for work/school/camp (Renamed from Encounter for school health examination) Start:18-Nov-2014 Instruction Type:Provider Instructions for Treatment How to access health informa tion online Indication:Sore throat Start:14-Oct-2014 Instruction Type:Patient Education How to access health informa tion online - Detail Indication:Sore throat Start:14-Oct-2014 Instruction Type:Patient Education Patient Instructions Indication:Sore throat Start:14-Oct-2014 Instruction Type:Provider Instructions for Treatment Patient Instructions Indication:Annual physical exam Start:12-Nov-2013 Instruction Type:Provider Instructions for Treatment How to access health informa tion online - Detail Indication:Annual physical exam Start:12-Nov-2013 Instruction Type:Patient Education How to access health informa tion online Indication:Annual physical exam Start:12-Nov-2013 Instruction Type:Patient Education Patient Instructions Indication:Knee pain Start:21-Jan-2013 Instruction Type:Provider Instructions for Treatment Patient Instructions Indication:Hypercholesterolemia Start:16-Nov-2012 Instruction Type:Provider Instructions for Treatment Patient Instructions Indication:Nausea Start:31-May-2012 Instruction Type:Provider Instructions for Treatment Patient Instructions Indication:Low back pain potentially associated with radiculopathy Start:03-Apr-2012 Instruction Type:Provider Instructions for Treatment [facility] Work Phone: Instructions* Name Dates Details Patient Instructions Indication:Encounter for annual general medical examination with abnormal findings in adult Start:14-Dec-2021 Instruction Type:Provider Instructions for Treatment How to Access Health Informa tion Online using Patient Portal and [employer] Apps Indication:Encounter for annual general medical examination with abnormal findings in adult Start:14-Dec-2021 Instruction Type:Patient Education Patient Instructions Indication:Vertigo Start:06-Apr-2021 Instruction Type:Provider Instructions for Treatment How to Access Health Informa tion Online using Patient Portal and [employer] Apps Indication:Vertigo Start:06-Apr-2021 Instruction Type:Patient Education Patient Instructions Indication:BMI 33.0-33.9,adult Start:11-Jan-2021 Instruction Type:Provider Instructions for Treatment How to Access Health Informa tion Online using Patient Portal and [employer] Apps Indication:BMI 33.0-33.9,adult Start:11-Jan-2021 Instruction Type:Patient Education Patient Instructions Indication:BMI 33.0-33.9,adult Start:09-Nov-2020 Instruction Type:Provider Instructions for Treatment How to Access Health Informa tion Online using Patient Portal and [employer] Apps Indication:BMI 33.0-33.9,adult Start:09-Nov-2020 Instruction Type:Patient Education Patient Instructions Indication:BMI 33.0-33.9,adult Start:27-Oct-2020 Instruction Type:Provider Instructions for Treatment How to Access Health Informa tion Online using Patient Portal and [employer] Apps Indication:BMI 33.0-33.9,adult Start:27-Oct-2020 Instruction Type:Patient Education Patient Instructions Indication:Nonsmoker Start:20-Oct-2020 Instruction Type:Provider Instructions for Treatment How to Access Health Informa tion Online using Patient Portal and [employer] Apps Indication:Nonsmoker Start:20-Oct-2020 Instruction Type:Patient Education Patient Instructions Indication:Nonsmoker Start:13-Mar-2020 Instruction Type:Provider Instructions for Treatment How to Access Health Informa tion Online using Patient Portal and [employer] Apps Indication:Nonsmoker Start:13-Mar-2020 Instruction Type:Patient Education How to access health informa tion online Indication:Nonsmoker Start:25-Sep-2019 Instruction Type:Patient Education How to access health informa tion online - Detail Indication:Nonsmoker Start:25-Sep-2019 Instruction Type:Patient Education Patient Instructions Indication:BMI 33.0-33.9,adult Start:25-Sep-2019 Instruction Type:Provider Instructions for Treatment How to access health informa tion online Indication:Nonsmoker Start:13-Aug-2019 Instruction Type:Patient Education How to access health informa tion online - Detail Indication:Nonsmoker Start:13-Aug-2019 Instruction Type:Patient Education Patient Instructions Indication:BMI 33.0-33.9,adult Start:13-Aug-2019 Instruction Type:Provider Instructions for Treatment How to access health informa tion online Indication:Nonsmoker Start:05-Nov-2018 Instruction Type:Patient Education How to access health informa tion online - Detail Indication:Nonsmoker Start:05-Nov-2018 Instruction Type:Patient Education Patient Instructions Indication:BMI 33.0-33.9,adult Start:05-Nov-2018 Instruction Type:Provider Instructions for Treatment How to access health informa tion online - Detail Indication:Nonsmoker Start:25-Oct-2018 Instruction Type:Patient Education Patient Instructions Indication:Tonsil stone Start:25-Oct-2018 Instruction Type:Provider Instructions for Treatment How to access health informa tion online Indication:Nonsmoker Start:19-Jun-2018 Instruction Type:Patient Education How to access health informa tion online - Detail Indication:Nonsmoker Start:19-Jun-2018 Instruction Type:Patient Education Patient Instructions Indication:Nonsmoker Start:19-Jun-2018 Instruction Type:Provider Instructions for Treatment How to access health informa tion online Indication:Nonsmoker Start:15-Nov-2017 Instruction Type:Patient Education How to access health informa tion online - Detail Indication:Nonsmoker Start:15-Nov-2017 Instruction Type:Patient Education Patient Instructions Indication:Nonsmoker Start:15-Nov-2017 Instruction Type:Provider Instructions for Treatment How to access health informa tion online Indication:Hypercholesterolemia Start:15-Nov-2016 Instruction Type:Patient Education How to access health informa tion online - Detail Indication:Hypercholesterolemia Start:15-Nov-2016 Instruction Type:Patient Education Patient Instructions Indication:BMI 33.0-33.9,adult Start:15-Nov-2016 Instruction Type:Provider Instructions for Treatment How to access health informa tion online Indication:Knee pain, right Start:04-Sep-2015 Instruction Type:Patient Education How to access health informa tion online - Detail Indication:Knee pain, right Start:04-Sep-2015 Instruction Type:Patient Education Patient Instructions Indication:Knee pain, right Start:04-Sep-2015 Instruction Type:Provider Instructions for Treatment How to access health informa tion online Indication:Physical exam for work/school/camp (Renamed from Encounter for school health examination) Start:18-Nov-2014 Instruction Type:Patient Education How to access health informa tion online - Detail Indication:Physical exam for work/school/camp (Renamed from Encounter for school health examination) Start:18-Nov-2014 Instruction Type:Patient Education Patient Instructions Indication:Physical exam for work/school/camp (Renamed from Encounter for school health examination) Start:18-Nov-2014 Instruction Type:Provider Instructions for Treatment How to access health informa tion online Indication:Sore throat Start:14-Oct-2014 Instruction Type:Patient Education How to access health informa tion online - Detail Indication:Sore throat Start:14-Oct-2014 Instruction Type:Patient Education Patient Instructions Indication:Sore throat Start:14-Oct-2014 Instruction Type:Provider Instructions for Treatment Patient Instructions Indication:Annual physical exam Start:12-Nov-2013 Instruction Type:Provider Instructions for Treatment How to access health informa tion online - Detail Indication:Annual physical exam Start:12-Nov-2013 Instruction Type:Patient Education How to access health informa tion online Indication:Annual physical exam Start:12-Nov-2013 Instruction Type:Patient Education Patient Instructions Indication:Knee pain Start:21-Jan-2013 Instruction Type:Provider Instructions for Treatment Patient Instructions Indication:Hypercholesterolemia Start:16-Nov-2012 Instruction Type:Provider Instructions for Treatment Patient Instructions Indication:Nausea Start:31-May-2012 Instruction Type:Provider Instructions for Treatment Patient Instructions Indication:Low back pain potentially associated with radiculopathy Start:03-Apr-2012 Instruction Type:Provider Instructions for Treatment [facility]; [facility] Work Phone: Instructions* Name Dates Details Patient Instructions Indication:Nonsmoker Start:14-Dec-2021 Instruction Type:Provider Instructions for Treatment How to Access Health Informa tion Online using Patient Portal and [employer] Apps Indication:Nonsmoker Start:14-Dec-2021 Instruction Type:Patient Education Patient Instructions Indication:Encounter for annual general medical examination with abnormal findings in adult Start:14-Dec-2021 Instruction Type:Provider Instructions for Treatment How to Access Health Informa tion Online using Patient Portal and [employer] Apps Indication:Encounter for annual general medical examination with abnormal findings in adult Start:14-Dec-2021 Instruction Type:Patient Education Patient Instructions Indication:Vertigo Start:06-Apr-2021 Instruction Type:Provider Instructions for Treatment How to Access Health Informa tion Online using Patient Portal and [employer] Apps Indication:Vertigo Start:06-Apr-2021 Instruction Type:Patient Education Patient Instructions Indication:BMI 33.0-33.9,adult Start:11-Jan-2021 Instruction Type:Provider Instructions for Treatment How to Access Health Informa tion Online using Patient Portal and [employer] Apps Indication:BMI 33.0-33.9,adult Start:11-Jan-2021 Instruction Type:Patient Education Patient Instructions Indication:BMI 33.0-33.9,adult Start:09-Nov-2020 Instruction Type:Provider Instructions for Treatment How to Access Health Informa tion Online using Patient Portal and [employer] Apps Indication:BMI 33.0-33.9,adult Start:09-Nov-2020 Instruction Type:Patient Education Patient Instructions Indication:BMI 33.0-33.9,adult Start:27-Oct-2020 Instruction Type:Provider Instructions for Treatment How to Access Health Informa tion Online using Patient Portal and [employer] Apps Indication:BMI 33.0-33.9,adult Start:27-Oct-2020 Instruction Type:Patient Education Patient Instructions Indication:Nonsmoker Start:20-Oct-2020 Instruction Type:Provider Instructions for Treatment How to Access Health Informa tion Online using Patient Portal and [employer] Apps Indication:Nonsmoker Start:20-Oct-2020 Instruction Type:Patient Education Patient Instructions Indication:Nonsmoker Start:13-Mar-2020 Instruction Type:Provider Instructions for Treatment How to Access Health Informa tion Online using Patient Portal and [employer] Apps Indication:Nonsmoker Start:13-Mar-2020 Instruction Type:Patient Education How to access health informa tion online Indication:Nonsmoker Start:25-Sep-2019 Instruction Type:Patient Education How to access health informa tion online - Detail Indication:Nonsmoker Start:25-Sep-2019 Instruction Type:Patient Education Patient Instructions Indication:BMI 33.0-33.9,adult Start:25-Sep-2019 Instruction Type:Provider Instructions for Treatment How to access health informa tion online Indication:Nonsmoker Start:13-Aug-2019 Instruction Type:Patient Education How to access health informa tion online - Detail Indication:Nonsmoker Start:13-Aug-2019 Instruction Type:Patient Education Patient Instructions Indication:BMI 33.0-33.9,adult Start:13-Aug-2019 Instruction Type:Provider Instructions for Treatment How to access health informa tion online Indication:Nonsmoker Start:05-Nov-2018 Instruction Type:Patient Education How to access health informa tion online - Detail Indication:Nonsmoker Start:05-Nov-2018 Instruction Type:Patient Education Patient Instructions Indication:BMI 33.0-33.9,adult Start:05-Nov-2018 Instruction Type:Provider Instructions for Treatment How to access health informa tion online - Detail Indication:Nonsmoker Start:25-Oct-2018 Instruction Type:Patient Education Patient Instructions Indication:Tonsil stone Start:25-Oct-2018 Instruction Type:Provider Instructions for Treatment How to access health informa tion online Indication:Nonsmoker Start:19-Jun-2018 Instruction Type:Patient Education How to access health informa tion online - Detail Indication:Nonsmoker Start:19-Jun-2018 Instruction Type:Patient Education Patient Instructions Indication:Nonsmoker Start:19-Jun-2018 Instruction Type:Provider Instructions for Treatment How to access health informa tion online Indication:Nonsmoker Start:15-Nov-2017 Instruction Type:Patient Education How to access health informa tion online - Detail Indication:Nonsmoker Start:15-Nov-2017 Instruction Type:Patient Education Patient Instructions Indication:Nonsmoker Start:15-Nov-2017 Instruction Type:Provider Instructions for Treatment How to access health informa tion online Indication:Hypercholesterolemia Start:15-Nov-2016 Instruction Type:Patient Education How to access health informa tion online - Detail Indication:Hypercholesterolemia Start:15-Nov-2016 Instruction Type:Patient Education Patient Instructions Indication:BMI 33.0-33.9,adult Start:15-Nov-2016 Instruction Type:Provider Instructions for Treatment How to access health informa tion online Indication:Knee pain, right Start:04-Sep-2015 Instruction Type:Patient Education How to access health informa tion online - Detail Indication:Knee pain, right Start:04-Sep-2015 Instruction Type:Patient Education Patient Instructions Indication:Knee pain, right Start:04-Sep-2015 Instruction Type:Provider Instructions for Treatment How to access health informa tion online Indication:Physical exam for work/school/camp (Renamed from Encounter for school health examination) Start:18-Nov-2014 Instruction Type:Patient Education How to access health informa tion online - Detail Indication:Physical exam for work/school/camp (Renamed from Encounter for school health examination) Start:18-Nov-2014 Instruction Type:Patient Education Patient Instructions Indication:Physical exam for work/school/camp (Renamed from Encounter for school health examination) Start:18-Nov-2014 Instruction Type:Provider Instructions for Treatment How to access health informa tion online Indication:Sore throat Start:14-Oct-2014 Instruction Type:Patient Education How to access health informa tion online - Detail Indication:Sore throat Start:14-Oct-2014 Instruction Type:Patient Education Patient Instructions Indication:Sore throat Start:14-Oct-2014 Instruction Type:Provider Instructions for Treatment Patient Instructions Indication:Annual physical exam Start:12-Nov-2013 Instruction Type:Provider Instructions for Treatment How to access health informa tion online - Detail Indication:Annual physical exam Start:12-Nov-2013 Instruction Type:Patient Education How to access health informa tion online Indication:Annual physical exam Start:12-Nov-2013 Instruction Type:Patient Education Patient Instructions Indication:Knee pain Start:21-Jan-2013 Instruction Type:Provider Instructions for Treatment Patient Instructions Indication:Hypercholesterolemia Start:16-Nov-2012 Instruction Type:Provider Instructions for Treatment Patient Instructions Indication:Nausea Start:31-May-2012 Instruction Type:Provider Instructions for Treatment Patient Instructions Indication:Low back pain potentially associated with radiculopathy Start:03-Apr-2012 Instruction Type:Provider Instructions for Treatment [facility]; [facility] Work Phone: Instructions* Name Dates Details Patient Instructions Indication:Nonsmoker Start:14-Dec-2021 Instruction Type:Provider Instructions for Treatment How to Access Health Informa tion Online using Patient Portal and [employer] Apps Indication:Nonsmoker Start:14-Dec-2021 Instruction Type:Patient Education Patient Instructions Indication:Encounter for annual general medical examination with abnormal findings in adult Start:14-Dec-2021 Instruction Type:Provider Instructions for Treatment How to Access Health Informa tion Online using Patient Portal and [employer] Apps Indication:Encounter for annual general medical examination with abnormal findings in adult Start:14-Dec-2021 Instruction Type:Patient Education Patient Instructions Indication:Vertigo Start:06-Apr-2021 Instruction Type:Provider Instructions for Treatment How to Access Health Informa tion Online using Patient Portal and [employer] Apps Indication:Vertigo Start:06-Apr-2021 Instruction Type:Patient Education Patient Instructions Indication:BMI 33.0-33.9,adult Start:11-Jan-2021 Instruction Type:Provider Instructions for Treatment How to Access Health Informa tion Online using Patient Portal and [employer] Apps Indication:BMI 33.0-33.9,adult Start:11-Jan-2021 Instruction Type:Patient Education Patient Instructions Indication:BMI 33.0-33.9,adult Start:09-Nov-2020 Instruction Type:Provider Instructions for Treatment How to Access Health Informa tion Online using Patient Portal and [employer] Apps Indication:BMI 33.0-33.9,adult Start:09-Nov-2020 Instruction Type:Patient Education Patient Instructions Indication:BMI 33.0-33.9,adult Start:27-Oct-2020 Instruction Type:Provider Instructions for Treatment How to Access Health Informa tion Online using Patient Portal and [employer] Apps Indication:BMI 33.0-33.9,adult Start:27-Oct-2020 Instruction Type:Patient Education Patient Instructions Indication:Nonsmoker Start:20-Oct-2020 Instruction Type:Provider Instructions for Treatment How to Access Health Informa tion Online using Patient Portal and [employer] Apps Indication:Nonsmoker Start:20-Oct-2020 Instruction Type:Patient Education Patient Instructions Indication:Nonsmoker Start:13-Mar-2020 Instruction Type:Provider Instructions for Treatment How to Access Health Informa tion Online using Patient Portal and [employer] Apps Indication:Nonsmoker Start:13-Mar-2020 Instruction Type:Patient Education How to access health informa tion online Indication:Nonsmoker Start:25-Sep-2019 Instruction Type:Patient Education How to access health informa tion online - Detail Indication:Nonsmoker Start:25-Sep-2019 Instruction Type:Patient Education Patient Instructions Indication:BMI 33.0-33.9,adult Start:25-Sep-2019 Instruction Type:Provider Instructions for Treatment How to access health informa tion online Indication:Nonsmoker Start:13-Aug-2019 Instruction Type:Patient Education How to access health informa tion online - Detail Indication:Nonsmoker Start:13-Aug-2019 Instruction Type:Patient Education Patient Instructions Indication:BMI 33.0-33.9,adult Start:13-Aug-2019 Instruction Type:Provider Instructions for Treatment How to access health informa tion online Indication:Nonsmoker Start:05-Nov-2018 Instruction Type:Patient Education How to access health informa tion online - Detail Indication:Nonsmoker Start:05-Nov-2018 Instruction Type:Patient Education Patient Instructions Indication:BMI 33.0-33.9,adult Start:05-Nov-2018 Instruction Type:Provider Instructions for Treatment How to access health informa tion online - Detail Indication:Nonsmoker Start:25-Oct-2018 Instruction Type:Patient Education Patient Instructions Indication:Tonsil stone Start:25-Oct-2018 Instruction Type:Provider Instructions for Treatment How to access health informa tion online Indication:Nonsmoker Start:19-Jun-2018 Instruction Type:Patient Education How to access health informa tion online - Detail Indication:Nonsmoker Start:19-Jun-2018 Instruction Type:Patient Education Patient Instructions Indication:Nonsmoker Start:19-Jun-2018 Instruction Type:Provider Instructions for Treatment How to access health informa tion online Indication:Nonsmoker Start:15-Nov-2017 Instruction Type:Patient Education How to access health informa tion online - Detail Indication:Nonsmoker Start:15-Nov-2017 Instruction Type:Patient Education Patient Instructions Indication:Nonsmoker Start:15-Nov-2017 Instruction Type:Provider Instructions for Treatment How to access health informa tion online Indication:Hypercholesterolemia Start:15-Nov-2016 Instruction Type:Patient Education How to access health informa tion online - Detail Indication:Hypercholesterolemia Start:15-Nov-2016 Instruction Type:Patient Education Patient Instructions Indication:BMI 33.0-33.9,adult Start:15-Nov-2016 Instruction Type:Provider Instructions for Treatment How to access health informa tion online Indication:Knee pain, right Start:04-Sep-2015 Instruction Type:Patient Education How to access health informa tion online - Detail Indication:Knee pain, right Start:04-Sep-2015 Instruction Type:Patient Education Patient Instructions Indication:Knee pain, right Start:04-Sep-2015 Instruction Type:Provider Instructions for Treatment How to access health informa tion online Indication:Physical exam for work/school/camp (Renamed from Encounter for school health examination) Start:18-Nov-2014 Instruction Type:Patient Education How to access health informa tion online - Detail Indication:Physical exam for work/school/camp (Renamed from Encounter for school health examination) Start:18-Nov-2014 Instruction Type:Patient Education Patient Instructions Indication:Physical exam for work/school/camp (Renamed from Encounter for school health examination) Start:18-Nov-2014 Instruction Type:Provider Instructions for Treatment How to access health informa tion online Indication:Sore throat Start:14-Oct-2014 Instruction Type:Patient Education How to access health informa tion online - Detail Indication:Sore throat Start:14-Oct-2014 Instruction Type:Patient Education Patient Instructions Indication:Sore throat Start:14-Oct-2014 Instruction Type:Provider Instructions for Treatment Patient Instructions Indication:Annual physical exam Start:12-Nov-2013 Instruction Type:Provider Instructions for Treatment How to access health informa tion online - Detail Indication:Annual physical exam Start:12-Nov-2013 Instruction Type:Patient Education How to access health informa tion online Indication:Annual physical exam Start:12-Nov-2013 Instruction Type:Patient Education Patient Instructions Indication:Knee pain Start:21-Jan-2013 Instruction Type:Provider Instructions for Treatment Patient Instructions Indication:Hypercholesterolemia Start:16-Nov-2012 Instruction Type:Provider Instructions for Treatment Patient Instructions Indication:Nausea Start:31-May-2012 Instruction Type:Provider Instructions for Treatment Patient Instructions Indication:Low back pain potentially associated with radiculopathy Start:03-Apr-2012 Instruction Type:Provider Instructions for Treatment [facility] Work Phone: Instructions* Name Dates Details Patient Instructions Indication:Nonsmoker Start:14-Dec-2021 Instruction Type:Provider Instructions for Treatment How to Access Health Informa tion Online using Patient Portal and [employer] Apps Indication:Nonsmoker Start:14-Dec-2021 Instruction Type:Patient Education Patient Instructions Indication:Encounter for annual general medical examination with abnormal findings in adult Start:14-Dec-2021 Instruction Type:Provider Instructions for Treatment How to Access Health Informa tion Online using Patient Portal and [employer] Apps Indication:Encounter for annual general medical examination with abnormal findings in adult Start:14-Dec-2021 Instruction Type:Patient Education Patient Instructions Indication:Vertigo Start:06-Apr-2021 Instruction Type:Provider Instructions for Treatment How to Access Health Informa tion Online using Patient Portal and [employer] Apps Indication:Vertigo Start:06-Apr-2021 Instruction Type:Patient Education Patient Instructions Indication:BMI 33.0-33.9,adult Start:11-Jan-2021 Instruction Type:Provider Instructions for Treatment How to Access Health Informa tion Online using Patient Portal and [employer] Apps Indication:BMI 33.0-33.9,adult Start:11-Jan-2021 Instruction Type:Patient Education Patient Instructions Indication:BMI 33.0-33.9,adult Start:09-Nov-2020 Instruction Type:Provider Instructions for Treatment How to Access Health Informa tion Online using Patient Portal and [employer] Apps Indication:BMI 33.0-33.9,adult Start:09-Nov-2020 Instruction Type:Patient Education Patient Instructions Indication:BMI 33.0-33.9,adult Start:27-Oct-2020 Instruction Type:Provider Instructions for Treatment How to Access Health Informa tion Online using Patient Portal and [employer] Apps Indication:BMI 33.0-33.9,adult Start:27-Oct-2020 Instruction Type:Patient Education Patient Instructions Indication:Nonsmoker Start:20-Oct-2020 Instruction Type:Provider Instructions for Treatment How to Access Health Informa tion Online using Patient Portal and [employer] Apps Indication:Nonsmoker Start:20-Oct-2020 Instruction Type:Patient Education Patient Instructions Indication:Nonsmoker Start:13-Mar-2020 Instruction Type:Provider Instructions for Treatment How to Access Health Informa tion Online using Patient Portal and [employer] Apps Indication:Nonsmoker Start:13-Mar-2020 Instruction Type:Patient Education How to access health informa tion online Indication:Nonsmoker Start:25-Sep-2019 Instruction Type:Patient Education How to access health informa tion online - Detail Indication:Nonsmoker Start:25-Sep-2019 Instruction Type:Patient Education Patient Instructions Indication:BMI 33.0-33.9,adult Start:25-Sep-2019 Instruction Type:Provider Instructions for Treatment How to access health informa tion online Indication:Nonsmoker Start:13-Aug-2019 Instruction Type:Patient Education How to access health informa tion online - Detail Indication:Nonsmoker Start:13-Aug-2019 Instruction Type:Patient Education Patient Instructions Indication:BMI 33.0-33.9,adult Start:13-Aug-2019 Instruction Type:Provider Instructions for Treatment How to access health informa tion online Indication:Nonsmoker Start:05-Nov-2018 Instruction Type:Patient Education How to access health informa tion online - Detail Indication:Nonsmoker Start:05-Nov-2018 Instruction Type:Patient Education Patient Instructions Indication:BMI 33.0-33.9,adult Start:05-Nov-2018 Instruction Type:Provider Instructions for Treatment How to access health informa tion online - Detail Indication:Nonsmoker Start:25-Oct-2018 Instruction Type:Patient Education Patient Instructions Indication:Tonsil stone Start:25-Oct-2018 Instruction Type:Provider Instructions for Treatment How to access health informa tion online Indication:Nonsmoker Start:19-Jun-2018 Instruction Type:Patient Education How to access health informa tion online - Detail Indication:Nonsmoker Start:19-Jun-2018 Instruction Type:Patient Education Patient Instructions Indication:Nonsmoker Start:19-Jun-2018 Instruction Type:Provider Instructions for Treatment How to access health informa tion online Indication:Nonsmoker Start:15-Nov-2017 Instruction Type:Patient Education How to access health informa tion online - Detail Indication:Nonsmoker Start:15-Nov-2017 Instruction Type:Patient Education Patient Instructions Indication:Nonsmoker Start:15-Nov-2017 Instruction Type:Provider Instructions for Treatment How to access health informa tion online Indication:Hypercholesterolemia Start:15-Nov-2016 Instruction Type:Patient Education How to access health informa tion online - Detail Indication:Hypercholesterolemia Start:15-Nov-2016 Instruction Type:Patient Education Patient Instructions Indication:BMI 33.0-33.9,adult Start:15-Nov-2016 Instruction Type:Provider Instructions for Treatment How to access health informa tion online Indication:Knee pain, right Start:04-Sep-2015 Instruction Type:Patient Education How to access health informa tion online - Detail Indication:Knee pain, right Start:04-Sep-2015 Instruction Type:Patient Education Patient Instructions Indication:Knee pain, right Start:04-Sep-2015 Instruction Type:Provider Instructions for Treatment How to access health informa tion online Indication:Physical exam for work/school/camp (Renamed from Encounter for school health examination) Start:18-Nov-2014 Instruction Type:Patient Education How to access health informa tion online - Detail Indication:Physical exam for work/school/camp (Renamed from Encounter for school health examination) Start:18-Nov-2014 Instruction Type:Patient Education Patient Instructions Indication:Physical exam for work/school/camp (Renamed from Encounter for school health examination) Start:18-Nov-2014 Instruction Type:Provider Instructions for Treatment How to access health informa tion online Indication:Sore throat Start:14-Oct-2014 Instruction Type:Patient Education How to access health informa tion online - Detail Indication:Sore throat Start:14-Oct-2014 Instruction Type:Patient Education Patient Instructions Indication:Sore throat Start:14-Oct-2014 Instruction Type:Provider Instructions for Treatment Patient Instructions Indication:Annual physical exam Start:12-Nov-2013 Instruction Type:Provider Instructions for Treatment How to access health informa tion online - Detail Indication:Annual physical exam Start:12-Nov-2013 Instruction Type:Patient Education How to access health informa tion online Indication:Annual physical exam Start:12-Nov-2013 Instruction Type:Patient Education Patient Instructions Indication:Knee pain Start:21-Jan-2013 Instruction Type:Provider Instructions for Treatment Patient Instructions Indication:Hypercholesterolemia Start:16-Nov-2012 Instruction Type:Provider Instructions for Treatment Patient Instructions Indication:Nausea Start:31-May-2012 Instruction Type:Provider Instructions for Treatment Patient Instructions Indication:Low back pain potentially associated with radiculopathy Start:03-Apr-2012 Instruction Type:Provider Instructions for Treatment [facility] Work Phone: Instructions* Name Dates Details Patient Instructions Indication:Urticaria, acute Start:28-Mar-2022 Instruction Type:Provider Instructions for Treatment How to Access Health Informa tion Online using Patient Portal and [employer] Apps Indication:Urticaria, acute Start:28-Mar-2022 Instruction Type:Patient Education Patient Instructions Indication:Nonsmoker Start:14-Dec-2021 Instruction Type:Provider Instructions for Treatment How to Access Health Informa tion Online using Patient Portal and [employer] Apps Indication:Nonsmoker Start:14-Dec-2021 Instruction Type:Patient Education Patient Instructions Indication:Encounter for annual general medical examination with abnormal findings in adult Start:14-Dec-2021 Instruction Type:Provider Instructions for Treatment How to Access Health Informa tion Online using Patient Portal and [employer] Apps Indication:Encounter for annual general medical examination with abnormal findings in adult Start:14-Dec-2021 Instruction Type:Patient Education Patient Instructions Indication:Vertigo Start:06-Apr-2021 Instruction Type:Provider Instructions for Treatment How to Access Health Informa tion Online using Patient Portal and [employer] Apps Indication:Vertigo Start:06-Apr-2021 Instruction Type:Patient Education Patient Instructions Indication:BMI 33.0-33.9,adult Start:11-Jan-2021 Instruction Type:Provider Instructions for Treatment How to Access Health Informa tion Online using Patient Portal and [employer] Apps Indication:BMI 33.0-33.9,adult Start:11-Jan-2021 Instruction Type:Patient Education Patient Instructions Indication:BMI 33.0-33.9,adult Start:09-Nov-2020 Instruction Type:Provider Instructions for Treatment How to Access Health Informa tion Online using Patient Portal and [employer] Apps Indication:BMI 33.0-33.9,adult Start:09-Nov-2020 Instruction Type:Patient Education Patient Instructions Indication:BMI 33.0-33.9,adult Start:27-Oct-2020 Instruction Type:Provider Instructions for Treatment How to Access Health Informa tion Online using Patient Portal and [employer] Apps Indication:BMI 33.0-33.9,adult Start:27-Oct-2020 Instruction Type:Patient Education Patient Instructions Indication:Nonsmoker Start:20-Oct-2020 Instruction Type:Provider Instructions for Treatment How to Access Health Informa tion Online using Patient Portal and [employer] Apps Indication:Nonsmoker Start:20-Oct-2020 Instruction Type:Patient Education Patient Instructions Indication:Nonsmoker Start:13-Mar-2020 Instruction Type:Provider Instructions for Treatment How to Access Health Informa tion Online using Patient Portal and [employer] Apps Indication:Nonsmoker Start:13-Mar-2020 Instruction Type:Patient Education How to access health informa tion online Indication:Nonsmoker Start:25-Sep-2019 Instruction Type:Patient Education How to access health informa tion online - Detail Indication:Nonsmoker Start:25-Sep-2019 Instruction Type:Patient Education Patient Instructions Indication:BMI 33.0-33.9,adult Start:25-Sep-2019 Instruction Type:Provider Instructions for Treatment How to access health informa tion online Indication:Nonsmoker Start:13-Aug-2019 Instruction Type:Patient Education How to access health informa tion online - Detail Indication:Nonsmoker Start:13-Aug-2019 Instruction Type:Patient Education Patient Instructions Indication:BMI 33.0-33.9,adult Start:13-Aug-2019 Instruction Type:Provider Instructions for Treatment How to access health informa tion online Indication:Nonsmoker Start:05-Nov-2018 Instruction Type:Patient Education How to access health informa tion online - Detail Indication:Nonsmoker Start:05-Nov-2018 Instruction Type:Patient Education Patient Instructions Indication:BMI 33.0-33.9,adult Start:05-Nov-2018 Instruction Type:Provider Instructions for Treatment How to access health informa tion online - Detail Indication:Nonsmoker Start:25-Oct-2018 Instruction Type:Patient Education Patient Instructions Indication:Tonsil stone Start:25-Oct-2018 Instruction Type:Provider Instructions for Treatment How to access health informa tion online Indication:Nonsmoker Start:19-Jun-2018 Instruction Type:Patient Education How to access health informa tion online - Detail Indication:Nonsmoker Start:19-Jun-2018 Instruction Type:Patient Education Patient Instructions Indication:Nonsmoker Start:19-Jun-2018 Instruction Type:Provider Instructions for Treatment How to access health informa tion online Indication:Nonsmoker Start:15-Nov-2017 Instruction Type:Patient Education How to access health informa tion online - Detail Indication:Nonsmoker Start:15-Nov-2017 Instruction Type:Patient Education Patient Instructions Indication:Nonsmoker Start:15-Nov-2017 Instruction Type:Provider Instructions for Treatment How to access health informa tion online Indication:Hypercholesterolemia Start:15-Nov-2016 Instruction Type:Patient Education How to access health informa tion online - Detail Indication:Hypercholesterolemia Start:15-Nov-2016 Instruction Type:Patient Education Patient Instructions Indication:BMI 33.0-33.9,adult Start:15-Nov-2016 Instruction Type:Provider Instructions for Treatment How to access health informa tion online Indication:Knee pain, right Start:04-Sep-2015 Instruction Type:Patient Education How to access health informa tion online - Detail Indication:Knee pain, right Start:04-Sep-2015 Instruction Type:Patient Education Patient Instructions Indication:Knee pain, right Start:04-Sep-2015 Instruction Type:Provider Instructions for Treatment How to access health informa tion online Indication:Physical exam for work/school/camp (Renamed from Encounter for school health examination) Start:18-Nov-2014 Instruction Type:Patient Education How to access health informa tion online - Detail Indication:Physical exam for work/school/camp (Renamed from Encounter for school health examination) Start:18-Nov-2014 Instruction Type:Patient Education Patient Instructions Indication:Physical exam for work/school/camp (Renamed from Encounter for school health examination) Start:18-Nov-2014 Instruction Type:Provider Instructions for Treatment How to access health informa tion online Indication:Sore throat Start:14-Oct-2014 Instruction Type:Patient Education How to access health informa tion online - Detail Indication:Sore throat Start:14-Oct-2014 Instruction Type:Patient Education Patient Instructions Indication:Sore throat Start:14-Oct-2014 Instruction Type:Provider Instructions for Treatment Patient Instructions Indication:Annual physical exam Start:12-Nov-2013 Instruction Type:Provider Instructions for Treatment How to access health informa tion online - Detail Indication:Annual physical exam Start:12-Nov-2013 Instruction Type:Patient Education How to access health informa tion online Indication:Annual physical exam Start:12-Nov-2013 Instruction Type:Patient Education Patient Instructions Indication:Knee pain Start:21-Jan-2013 Instruction Type:Provider Instructions for Treatment Patient Instructions Indication:Hypercholesterolemia Start:16-Nov-2012 Instruction Type:Provider Instructions for Treatment Patient Instructions Indication:Nausea Start:31-May-2012 Instruction Type:Provider Instructions for Treatment Patient Instructions Indication:Low back pain potentially associated with radiculopathy Start:03-Apr-2012 Instruction Type:Provider Instructions for Treatment [facility] Work Phone: Instructions* Name Dates Details Patient Instructions Indication:Urticaria, acute Start:28-Mar-2022 Instruction Type:Provider Instructions for Treatment How to Access Health Informa tion Online using Patient Portal and [employer] Apps Indication:Urticaria, acute Start:28-Mar-2022 Instruction Type:Patient Education Patient Instructions Indication:Nonsmoker Start:14-Dec-2021 Instruction Type:Provider Instructions for Treatment How to Access Health Informa tion Online using Patient Portal and [employer] Apps Indication:Nonsmoker Start:14-Dec-2021 Instruction Type:Patient Education Patient Instructions Indication:Encounter for annual general medical examination with abnormal findings in adult Start:14-Dec-2021 Instruction Type:Provider Instructions for Treatment How to Access Health Informa tion Online using Patient Portal and [employer] Apps Indication:Encounter for annual general medical examination with abnormal findings in adult Start:14-Dec-2021 Instruction Type:Patient Education Patient Instructions Indication:Vertigo Start:06-Apr-2021 Instruction Type:Provider Instructions for Treatment How to Access Health Informa tion Online using Patient Portal and [employer] Apps Indication:Vertigo Start:06-Apr-2021 Instruction Type:Patient Education Patient Instructions Indication:BMI 33.0-33.9,adult Start:11-Jan-2021 Instruction Type:Provider Instructions for Treatment How to Access Health Informa tion Online using Patient Portal and [employer] Apps Indication:BMI 33.0-33.9,adult Start:11-Jan-2021 Instruction Type:Patient Education Patient Instructions Indication:BMI 33.0-33.9,adult Start:09-Nov-2020 Instruction Type:Provider Instructions for Treatment How to Access Health Informa tion Online using Patient Portal and [employer] Apps Indication:BMI 33.0-33.9,adult Start:09-Nov-2020 Instruction Type:Patient Education Patient Instructions Indication:BMI 33.0-33.9,adult Start:27-Oct-2020 Instruction Type:Provider Instructions for Treatment How to Access Health Informa tion Online using Patient Portal and [employer] Apps Indication:BMI 33.0-33.9,adult Start:27-Oct-2020 Instruction Type:Patient Education Patient Instructions Indication:Nonsmoker Start:20-Oct-2020 Instruction Type:Provider Instructions for Treatment How to Access Health Informa tion Online using Patient Portal and [employer] Apps Indication:Nonsmoker Start:20-Oct-2020 Instruction Type:Patient Education Patient Instructions Indication:Nonsmoker Start:13-Mar-2020 Instruction Type:Provider Instructions for Treatment How to Access Health Informa tion Online using Patient Portal and [employer] Apps Indication:Nonsmoker Start:13-Mar-2020 Instruction Type:Patient Education How to access health informa tion online Indication:Nonsmoker Start:25-Sep-2019 Instruction Type:Patient Education How to access health informa tion online - Detail Indication:Nonsmoker Start:25-Sep-2019 Instruction Type:Patient Education Patient Instructions Indication:BMI 33.0-33.9,adult Start:25-Sep-2019 Instruction Type:Provider Instructions for Treatment How to access health informa tion online Indication:Nonsmoker Start:13-Aug-2019 Instruction Type:Patient Education How to access health informa tion online - Detail Indication:Nonsmoker Start:13-Aug-2019 Instruction Type:Patient Education Patient Instructions Indication:BMI 33.0-33.9,adult Start:13-Aug-2019 Instruction Type:Provider Instructions for Treatment How to access health informa tion online Indication:Nonsmoker Start:05-Nov-2018 Instruction Type:Patient Education How to access health informa tion online - Detail Indication:Nonsmoker Start:05-Nov-2018 Instruction Type:Patient Education Patient Instructions Indication:BMI 33.0-33.9,adult Start:05-Nov-2018 Instruction Type:Provider Instructions for Treatment How to access health informa tion online - Detail Indication:Nonsmoker Start:25-Oct-2018 Instruction Type:Patient Education Patient Instructions Indication:Tonsil stone Start:25-Oct-2018 Instruction Type:Provider Instructions for Treatment How to access health informa tion online Indication:Nonsmoker Start:19-Jun-2018 Instruction Type:Patient Education How to access health informa tion online - Detail Indication:Nonsmoker Start:19-Jun-2018 Instruction Type:Patient Education Patient Instructions Indication:Nonsmoker Start:19-Jun-2018 Instruction Type:Provider Instructions for Treatment How to access health informa tion online Indication:Nonsmoker Start:15-Nov-2017 Instruction Type:Patient Education How to access health informa tion online - Detail Indication:Nonsmoker Start:15-Nov-2017 Instruction Type:Patient Education Patient Instructions Indication:Nonsmoker Start:15-Nov-2017 Instruction Type:Provider Instructions for Treatment How to access health informa tion online Indication:Hypercholesterolemia Start:15-Nov-2016 Instruction Type:Patient Education How to access health informa tion online - Detail Indication:Hypercholesterolemia Start:15-Nov-2016 Instruction Type:Patient Education Patient Instructions Indication:BMI 33.0-33.9,adult Start:15-Nov-2016 Instruction Type:Provider Instructions for Treatment How to access health informa tion online Indication:Knee pain, right Start:04-Sep-2015 Instruction Type:Patient Education How to access health informa tion online - Detail Indication:Knee pain, right Start:04-Sep-2015 Instruction Type:Patient Education Patient Instructions Indication:Knee pain, right Start:04-Sep-2015 Instruction Type:Provider Instructions for Treatment How to access health informa tion online Indication:Physical exam for work/school/camp (Renamed from Encounter for school health examination) Start:18-Nov-2014 Instruction Type:Patient Education How to access health informa tion online - Detail Indication:Physical exam for work/school/camp (Renamed from Encounter for school health examination) Start:18-Nov-2014 Instruction Type:Patient Education Patient Instructions Indication:Physical exam for work/school/camp (Renamed from Encounter for school health examination) Start:18-Nov-2014 Instruction Type:Provider Instructions for Treatment How to access health informa tion online Indication:Sore throat Start:14-Oct-2014 Instruction Type:Patient Education How to access health informa tion online - Detail Indication:Sore throat Start:14-Oct-2014 Instruction Type:Patient Education Patient Instructions Indication:Sore throat Start:14-Oct-2014 Instruction Type:Provider Instructions for Treatment Patient Instructions Indication:Annual physical exam Start:12-Nov-2013 Instruction Type:Provider Instructions for Treatment How to access health informa tion online - Detail Indication:Annual physical exam Start:12-Nov-2013 Instruction Type:Patient Education How to access health informa tion online Indication:Annual physical exam Start:12-Nov-2013 Instruction Type:Patient Education Patient Instructions Indication:Knee pain Start:21-Jan-2013 Instruction Type:Provider Instructions for Treatment Patient Instructions Indication:Hypercholesterolemia Start:16-Nov-2012 Instruction Type:Provider Instructions for Treatment Patient Instructions Indication:Nausea Start:31-May-2012 Instruction Type:Provider Instructions for Treatment Patient Instructions Indication:Low back pain potentially associated with radiculopathy Start:03-Apr-2012 Instruction Type:Provider Instructions for Treatment [facility] Work Phone: Instructions* Name Dates Details Patient Instructions Indication:Urticaria, acute Start:28-Mar-2022 Instruction Type:Provider Instructions for Treatment How to Access Health Informa tion Online using Patient Portal and [employer] Apps Indication:Urticaria, acute Start:28-Mar-2022 Instruction Type:Patient Education Patient Instructions Indication:Nonsmoker Start:14-Dec-2021 Instruction Type:Provider Instructions for Treatment How to Access Health Informa tion Online using Patient Portal and [employer] Apps Indication:Nonsmoker Start:14-Dec-2021 Instruction Type:Patient Education Patient Instructions Indication:Encounter for annual general medical examination with abnormal findings in adult Start:14-Dec-2021 Instruction Type:Provider Instructions for Treatment How to Access Health Informa tion Online using Patient Portal and [employer] Apps Indication:Encounter for annual general medical examination with abnormal findings in adult Start:14-Dec-2021 Instruction Type:Patient Education Patient Instructions Indication:Vertigo Start:06-Apr-2021 Instruction Type:Provider Instructions for Treatment How to Access Health Informa tion Online using Patient Portal and [employer] Apps Indication:Vertigo Start:06-Apr-2021 Instruction Type:Patient Education Patient Instructions Indication:BMI 33.0-33.9,adult Start:11-Jan-2021 Instruction Type:Provider Instructions for Treatment How to Access Health Informa tion Online using Patient Portal and [employer] Apps Indication:BMI 33.0-33.9,adult Start:11-Jan-2021 Instruction Type:Patient Education Patient Instructions Indication:BMI 33.0-33.9,adult Start:09-Nov-2020 Instruction Type:Provider Instructions for Treatment How to Access Health Informa tion Online using Patient Portal and [employer] Apps Indication:BMI 33.0-33.9,adult Start:09-Nov-2020 Instruction Type:Patient Education Patient Instructions Indication:BMI 33.0-33.9,adult Start:27-Oct-2020 Instruction Type:Provider Instructions for Treatment How to Access Health Informa tion Online using Patient Portal and [employer] Apps Indication:BMI 33.0-33.9,adult Start:27-Oct-2020 Instruction Type:Patient Education Patient Instructions Indication:Nonsmoker Start:20-Oct-2020 Instruction Type:Provider Instructions for Treatment How to Access Health Informa tion Online using Patient Portal and [employer] Apps Indication:Nonsmoker Start:20-Oct-2020 Instruction Type:Patient Education Patient Instructions Indication:Nonsmoker Start:13-Mar-2020 Instruction Type:Provider Instructions for Treatment How to Access Health Informa tion Online using Patient Portal and [employer] Apps Indication:Nonsmoker Start:13-Mar-2020 Instruction Type:Patient Education How to access health informa tion online Indication:Nonsmoker Start:25-Sep-2019 Instruction Type:Patient Education How to access health informa tion online - Detail Indication:Nonsmoker Start:25-Sep-2019 Instruction Type:Patient Education Patient Instructions Indication:BMI 33.0-33.9,adult Start:25-Sep-2019 Instruction Type:Provider Instructions for Treatment How to access health informa tion online Indication:Nonsmoker Start:13-Aug-2019 Instruction Type:Patient Education How to access health informa tion online - Detail Indication:Nonsmoker Start:13-Aug-2019 Instruction Type:Patient Education Patient Instructions Indication:BMI 33.0-33.9,adult Start:13-Aug-2019 Instruction Type:Provider Instructions for Treatment How to access health informa tion online Indication:Nonsmoker Start:05-Nov-2018 Instruction Type:Patient Education How to access health informa tion online - Detail Indication:Nonsmoker Start:05-Nov-2018 Instruction Type:Patient Education Patient Instructions Indication:BMI 33.0-33.9,adult Start:05-Nov-2018 Instruction Type:Provider Instructions for Treatment How to access health informa tion online - Detail Indication:Nonsmoker Start:25-Oct-2018 Instruction Type:Patient Education Patient Instructions Indication:Tonsil stone Start:25-Oct-2018 Instruction Type:Provider Instructions for Treatment How to access health informa tion online Indication:Nonsmoker Start:19-Jun-2018 Instruction Type:Patient Education How to access health informa tion online - Detail Indication:Nonsmoker Start:19-Jun-2018 Instruction Type:Patient Education Patient Instructions Indication:Nonsmoker Start:19-Jun-2018 Instruction Type:Provider Instructions for Treatment How to access health informa tion online Indication:Nonsmoker Start:15-Nov-2017 Instruction Type:Patient Education How to access health informa tion online - Detail Indication:Nonsmoker Start:15-Nov-2017 Instruction Type:Patient Education Patient Instructions Indication:Nonsmoker Start:15-Nov-2017 Instruction Type:Provider Instructions for Treatment How to access health informa tion online Indication:Hypercholesterolemia Start:15-Nov-2016 Instruction Type:Patient Education How to access health informa tion online - Detail Indication:Hypercholesterolemia Start:15-Nov-2016 Instruction Type:Patient Education Patient Instructions Indication:BMI 33.0-33.9,adult Start:15-Nov-2016 Instruction Type:Provider Instructions for Treatment How to access health informa tion online Indication:Knee pain, right Start:04-Sep-2015 Instruction Type:Patient Education How to access health informa tion online - Detail Indication:Knee pain, right Start:04-Sep-2015 Instruction Type:Patient Education Patient Instructions Indication:Knee pain, right Start:04-Sep-2015 Instruction Type:Provider Instructions for Treatment How to access health informa tion online Indication:Physical exam for work/school/camp (Renamed from Encounter for school health examination) Start:18-Nov-2014 Instruction Type:Patient Education How to access health informa tion online - Detail Indication:Physical exam for work/school/camp (Renamed from Encounter for school health examination) Start:18-Nov-2014 Instruction Type:Patient Education Patient Instructions Indication:Physical exam for work/school/camp (Renamed from Encounter for school health examination) Start:18-Nov-2014 Instruction Type:Provider Instructions for Treatment How to access health informa tion online Indication:Sore throat Start:14-Oct-2014 Instruction Type:Patient Education How to access health informa tion online - Detail Indication:Sore throat Start:14-Oct-2014 Instruction Type:Patient Education Patient Instructions Indication:Sore throat Start:14-Oct-2014 Instruction Type:Provider Instructions for Treatment Patient Instructions Indication:Annual physical exam Start:12-Nov-2013 Instruction Type:Provider Instructions for Treatment How to access health informa tion online - Detail Indication:Annual physical exam Start:12-Nov-2013 Instruction Type:Patient Education How to access health informa tion online Indication:Annual physical exam Start:12-Nov-2013 Instruction Type:Patient Education Patient Instructions Indication:Knee pain Start:21-Jan-2013 Instruction Type:Provider Instructions for Treatment Patient Instructions Indication:Hypercholesterolemia Start:16-Nov-2012 Instruction Type:Provider Instructions for Treatment Patient Instructions Indication:Nausea Start:31-May-2012 Instruction Type:Provider Instructions for Treatment Patient Instructions Indication:Low back pain potentially associated with radiculopathy Start:03-Apr-2012 Instruction Type:Provider Instructions for Treatment [facility]; [facility] Work Phone: Instructions* Name Dates Details Patient Instructions Indication:Cough Start:14-Jun-2022 Instruction Type:Provider Instructions for Treatment How to Access Health Informa tion Online using Patient Portal and [employer] Apps Indication:Cough Start:14-Jun-2022 Instruction Type:Patient Education Patient Instructions Indication:Urticaria, acute Start:28-Mar-2022 Instruction Type:Provider Instructions for Treatment How to Access Health Informa tion Online using Patient Portal and [employer] Apps Indication:Urticaria, acute Start:28-Mar-2022 Instruction Type:Patient Education Patient Instructions Indication:Nonsmoker Start:14-Dec-2021 Instruction Type:Provider Instructions for Treatment How to Access Health Informa tion Online using Patient Portal and [employer] Apps Indication:Nonsmoker Start:14-Dec-2021 Instruction Type:Patient Education Patient Instructions Indication:Encounter for annual general medical examination with abnormal findings in adult Start:14-Dec-2021 Instruction Type:Provider Instructions for Treatment How to Access Health Informa tion Online using Patient Portal and [employer] Apps Indication:Encounter for annual general medical examination with abnormal findings in adult Start:14-Dec-2021 Instruction Type:Patient Education Patient Instructions Indication:Vertigo Start:06-Apr-2021 Instruction Type:Provider Instructions for Treatment How to Access Health Informa tion Online using Patient Portal and [employer] Apps Indication:Vertigo Start:06-Apr-2021 Instruction Type:Patient Education Patient Instructions Indication:BMI 33.0-33.9,adult Start:11-Jan-2021 Instruction Type:Provider Instructions for Treatment How to Access Health Informa tion Online using Patient Portal and [employer] Apps Indication:BMI 33.0-33.9,adult Start:11-Jan-2021 Instruction Type:Patient Education Patient Instructions Indication:BMI 33.0-33.9,adult Start:09-Nov-2020 Instruction Type:Provider Instructions for Treatment How to Access Health Informa tion Online using Patient Portal and [employer] Apps Indication:BMI 33.0-33.9,adult Start:09-Nov-2020 Instruction Type:Patient Education Patient Instructions Indication:BMI 33.0-33.9,adult Start:27-Oct-2020 Instruction Type:Provider Instructions for Treatment How to Access Health Informa tion Online using Patient Portal and [employer] Apps Indication:BMI 33.0-33.9,adult Start:27-Oct-2020 Instruction Type:Patient Education Patient Instructions Indication:Nonsmoker Start:20-Oct-2020 Instruction Type:Provider Instructions for Treatment How to Access Health Informa tion Online using Patient Portal and [employer] Apps Indication:Nonsmoker Start:20-Oct-2020 Instruction Type:Patient Education Patient Instructions Indication:Nonsmoker Start:13-Mar-2020 Instruction Type:Provider Instructions for Treatment How to Access Health Informa tion Online using Patient Portal and [employer] Apps Indication:Nonsmoker Start:13-Mar-2020 Instruction Type:Patient Education How to access health informa tion online Indication:Nonsmoker Start:25-Sep-2019 Instruction Type:Patient Education How to access health informa tion online - Detail Indication:Nonsmoker Start:25-Sep-2019 Instruction Type:Patient Education Patient Instructions Indication:BMI 33.0-33.9,adult Start:25-Sep-2019 Instruction Type:Provider Instructions for Treatment How to access health informa tion online Indication:Nonsmoker Start:13-Aug-2019 Instruction Type:Patient Education How to access health informa tion online - Detail Indication:Nonsmoker Start:13-Aug-2019 Instruction Type:Patient Education Patient Instructions Indication:BMI 33.0-33.9,adult Start:13-Aug-2019 Instruction Type:Provider Instructions for Treatment How to access health informa tion online Indication:Nonsmoker Start:05-Nov-2018 Instruction Type:Patient Education How to access health informa tion online - Detail Indication:Nonsmoker Start:05-Nov-2018 Instruction Type:Patient Education Patient Instructions Indication:BMI 33.0-33.9,adult Start:05-Nov-2018 Instruction Type:Provider Instructions for Treatment How to access health informa tion online - Detail Indication:Nonsmoker Start:25-Oct-2018 Instruction Type:Patient Education Patient Instructions Indication:Tonsil stone Start:25-Oct-2018 Instruction Type:Provider Instructions for Treatment How to access health informa tion online Indication:Nonsmoker Start:19-Jun-2018 Instruction Type:Patient Education How to access health informa tion online - Detail Indication:Nonsmoker Start:19-Jun-2018 Instruction Type:Patient Education Patient Instructions Indication:Nonsmoker Start:19-Jun-2018 Instruction Type:Provider Instructions for Treatment How to access health informa tion online Indication:Nonsmoker Start:15-Nov-2017 Instruction Type:Patient Education How to access health informa tion online - Detail Indication:Nonsmoker Start:15-Nov-2017 Instruction Type:Patient Education Patient Instructions Indication:Nonsmoker Start:15-Nov-2017 Instruction Type:Provider Instructions for Treatment How to access health informa tion online Indication:Hypercholesterolemia Start:15-Nov-2016 Instruction Type:Patient Education How to access health informa tion online - Detail Indication:Hypercholesterolemia Start:15-Nov-2016 Instruction Type:Patient Education Patient Instructions Indication:BMI 33.0-33.9,adult Start:15-Nov-2016 Instruction Type:Provider Instructions for Treatment How to access health informa tion online Indication:Knee pain, right Start:04-Sep-2015 Instruction Type:Patient Education How to access health informa tion online - Detail Indication:Knee pain, right Start:04-Sep-2015 Instruction Type:Patient Education Patient Instructions Indication:Knee pain, right Start:04-Sep-2015 Instruction Type:Provider Instructions for Treatment How to access health informa tion online Indication:Physical exam for work/school/camp (Renamed from Encounter for school health examination) Start:18-Nov-2014 Instruction Type:Patient Education How to access health informa tion online - Detail Indication:Physical exam for work/school/camp (Renamed from Encounter for school health examination) Start:18-Nov-2014 Instruction Type:Patient Education Patient Instructions Indication:Physical exam for work/school/camp (Renamed from Encounter for school health examination) Start:18-Nov-2014 Instruction Type:Provider Instructions for Treatment How to access health informa tion online Indication:Sore throat Start:14-Oct-2014 Instruction Type:Patient Education How to access health informa tion online - Detail Indication:Sore throat Start:14-Oct-2014 Instruction Type:Patient Education Patient Instructions Indication:Sore throat Start:14-Oct-2014 Instruction Type:Provider Instructions for Treatment Patient Instructions Indication:Annual physical exam Start:12-Nov-2013 Instruction Type:Provider Instructions for Treatment How to access health informa tion online - Detail Indication:Annual physical exam Start:12-Nov-2013 Instruction Type:Patient Education How to access health informa tion online Indication:Annual physical exam Start:12-Nov-2013 Instruction Type:Patient Education Patient Instructions Indication:Knee pain Start:21-Jan-2013 Instruction Type:Provider Instructions for Treatment Patient Instructions Indication:Hypercholesterolemia Start:16-Nov-2012 Instruction Type:Provider Instructions for Treatment Patient Instructions Indication:Nausea Start:31-May-2012 Instruction Type:Provider Instructions for Treatment Patient Instructions Indication:Low back pain potentially associated with radiculopathy Start:03-Apr-2012 Instruction Type:Provider Instructions for Treatment [facility]; [facility] Work Phone: Instructions* Name Dates Details Patient Instructions Indication:Cough Start:14-Jun-2022 Instruction Type:Provider Instructions for Treatment How to Access Health Informa tion Online using Patient Portal and [employer] Apps Indication:Cough Start:14-Jun-2022 Instruction Type:Patient Education Patient Instructions Indication:Urticaria, acute Start:28-Mar-2022 Instruction Type:Provider Instructions for Treatment How to Access Health Informa tion Online using Patient Portal and [employer] Indication:Urticaria, acute Start:28-Mar-2022 Instruction Type:Patient Education Patient Instructions Indication:Nonsmoker Start:14-Dec-2021 Instruction Type:Provider Instructions for Treatment How to Access Health Informa tion Online using Patient Portal and [employer] Indication:Nonsmoker Start:14-Dec-2021 Instruction Type:Patient Education Patient Instructions Indication:Encounter for annual general medical examination with abnormal findings in adult Start:14-Dec-2021 Instruction Type:Provider Instructions for Treatment How to Access Health Informa tion Online using Patient Portal and [employer] Apps Indication:Encounter for annual general medical examination with abnormal findings in adult Start:14-Dec-2021 Instruction Type:Patient Education Patient Instructions Indication:Vertigo Start:06-Apr-2021 Instruction Type:Provider Instructions for Treatment How to Access Health Informa tion Online using Patient Portal and [employer] Indication:Vertigo Start:06-Apr-2021 Instruction Type:Patient Education Patient Instructions Indication:BMI 33.0-33.9,adult Start:11-Jan-2021 Instruction Type:Provider Instructions for Treatment How to Access Health Informa tion Online using Patient Portal and [employer] Indication:BMI 33.0-33.9,adult Start:11-Jan-2021 Instruction Type:Patient Education Patient Instructions Indication:BMI 33.0-33.9,adult Start:09-Nov-2020 Instruction Type:Provider Instructions for Treatment How to Access Health Informa tion Online using Patient Portal and [employer] Indication:BMI 33.0-33.9,adult Start:09-Nov-2020 Instruction Type:Patient Education Patient Instructions Indication:BMI 33.0-33.9,adult Start:27-Oct-2020 Instruction Type:Provider Instructions for Treatment How to Access Health Informa tion Online using Patient Portal and [employer] Indication:BMI 33.0-33.9,adult Start:27-Oct-2020 Instruction Type:Patient Education Patient Instructions Indication:Nonsmoker Start:20-Oct-2020 Instruction Type:Provider Instructions for Treatment How to Access Health Informa tion Online using Patient Portal and [employer] Indication:Nonsmoker Start:20-Oct-2020 Instruction Type:Patient Education Patient Instructions Indication:Nonsmoker Start:13-Mar-2020 Instruction Type:Provider Instructions for Treatment How to Access Health Informa tion Online using Patient Portal and [employer] Indication:Nonsmoker Start:13-Mar-2020 Instruction Type:Patient Education How to access health informa tion online Indication:Nonsmoker Start:25-Sep-2019 Instruction Type:Patient Education How to access health informa tion online - Detail Indication:Nonsmoker Start:25-Sep-2019 Instruction Type:Patient Education Patient Instructions Indication:BMI 33.0-33.9,adult Start:25-Sep-2019 Instruction Type:Provider Instructions for Treatment How to access health informa tion online Indication:Nonsmoker Start:13-Aug-2019 Instruction Type:Patient Education How to access health informa tion online - Detail Indication:Nonsmoker Start:13-Aug-2019 Instruction Type:Patient Education Patient Instructions Indication:BMI 33.0-33.9,adult Start:13-Aug-2019 Instruction Type:Provider Instructions for Treatment How to access health informa tion online Indication:Nonsmoker Start:05-Nov-2018 Instruction Type:Patient Education How to access health informa tion online - Detail Indication:Nonsmoker Start:05-Nov-2018 Instruction Type:Patient Education Patient Instructions Indication:BMI 33.0-33.9,adult Start:05-Nov-2018 Instruction Type:Provider Instructions for Treatment How to access health informa tion online - Detail Indication:Nonsmoker Start:25-Oct-2018 Instruction Type:Patient Education Patient Instructions Indication:Tonsil stone Start:25-Oct-2018 Instruction Type:Provider Instructions for Treatment How to access health informa tion online Indication:Nonsmoker Start:19-Jun-2018 Instruction Type:Patient Education How to access health informa tion online - Detail Indication:Nonsmoker Start:19-Jun-2018 Instruction Type:Patient Education Patient Instructions Indication:Nonsmoker Start:19-Jun-2018 Instruction Type:Provider Instructions for Treatment How to access health informa tion online Indication:Nonsmoker Start:15-Nov-2017 Instruction Type:Patient Education How to access health informa tion online - Detail Indication:Nonsmoker Start:15-Nov-2017 Instruction Type:Patient Education Patient Instructions Indication:Nonsmoker Start:15-Nov-2017 Instruction Type:Provider Instructions for Treatment How to access health informa tion online Indication:Hypercholesterolemia Start:15-Nov-2016 Instruction Type:Patient Education How to access health informa tion online - Detail Indication:Hypercholesterolemia Start:15-Nov-2016 Instruction Type:Patient Education Patient Instructions Indication:BMI 33.0-33.9,adult Start:15-Nov-2016 Instruction Type:Provider Instructions for Treatment How to access health informa tion online Indication:Knee pain, right Start:04-Sep-2015 Instruction Type:Patient Education How to access health informa tion online - Detail Indication:Knee pain, right Start:04-Sep-2015 Instruction Type:Patient Education Patient Instructions Indication:Knee pain, right Start:04-Sep-2015 Instruction Type:Provider Instructions for Treatment How to access health informa tion online Indication:Physical exam for work/school/camp (Renamed from Encounter for school health examination) Start:18-Nov-2014 Instruction Type:Patient Education How to access health informa tion online - Detail Indication:Physical exam for work/school/camp (Renamed from Encounter for school health examination) Start:18-Nov-2014 Instruction Type:Patient Education Patient Instructions Indication:Physical exam for work/school/camp (Renamed from Encounter for school health examination) Start:18-Nov-2014 Instruction Type:Provider Instructions for Treatment How to access health informa tion online Indication:Sore throat Start:14-Oct-2014 Instruction Type:Patient Education How to access health informa tion online - Detail Indication:Sore throat Start:14-Oct-2014 Instruction Type:Patient Education Patient Instructions Indication:Sore throat Start:14-Oct-2014 Instruction Type:Provider Instructions for Treatment Patient Instructions Indication:Annual physical exam Start:12-Nov-2013 Instruction Type:Provider Instructions for Treatment How to access health informa tion online - Detail Indication:Annual physical exam Start:12-Nov-2013 Instruction Type:Patient Education How to access health informa tion online Indication:Annual physical exam Start:12-Nov-2013 Instruction Type:Patient Education Patient Instructions Indication:Knee pain Start:21-Jan-2013 Instruction Type:Provider Instructions for Treatment Patient Instructions Indication:Hypercholesterolemia Start:16-Nov-2012 Instruction Type:Provider Instructions for Treatment Patient Instructions Indication:Nausea Start:31-May-2012 Instruction Type:Provider Instructions for Treatment Patient Instructions Indication:Low back pain potentially associated with radiculopathy Start:03-Apr-2012 Instruction Type:Provider Instructions for Treatment [facility]; [facility] Work Phone: Instructions* Name Dates Details Patient Instructions Indication:Nonsmoker Start:01-Jul-2022 Instruction Type:Provider Instructions for Treatment How to Access Health Informa tion Online using Patient Portal and [employer] Indication:Nonsmoker Start:01-Jul-2022 Instruction Type:Patient Education Patient Instructions Indication:Cough Start:14-Jun-2022 Instruction Type:Provider Instructions for Treatment How to Access Health Informa tion Online using Patient Portal and [employer] Indication:Cough Start:14-Jun-2022 Instruction Type:Patient Education Patient Instructions Indication:Urticaria, acute Start:28-Mar-2022 Instruction Type:Provider Instructions for Treatment How to Access Health Informa tion Online using Patient Portal and [employer] Indication:Urticaria, acute Start:28-Mar-2022 Instruction Type:Patient Education Patient Instructions Indication:Nonsmoker Start:14-Dec-2021 Instruction Type:Provider Instructions for Treatment How to Access Health Informa tion Online using Patient Portal and [employer] Indication:Nonsmoker Start:14-Dec-2021 Instruction Type:Patient Education Patient Instructions Indication:Encounter for annual general medical examination with abnormal findings in adult Start:14-Dec-2021 Instruction Type:Provider Instructions for Treatment How to Access Health Informa tion Online using Patient Portal and [employer] Apps Indication:Encounter for annual general medical examination with abnormal findings in adult Start:14-Dec-2021 Instruction Type:Patient Education Patient Instructions Indication:Vertigo Start:06-Apr-2021 Instruction Type:Provider Instructions for Treatment How to Access Health Informa tion Online using Patient Portal and [employer] Apps Indication:Vertigo Start:06-Apr-2021 Instruction Type:Patient Education Patient Instructions Indication:BMI 33.0-33.9,adult Start:11-Jan-2021 Instruction Type:Provider Instructions for Treatment How to Access Health Informa tion Online using Patient Portal and [employer] Apps Indication:BMI 33.0-33.9,adult Start:11-Jan-2021 Instruction Type:Patient Education Patient Instructions Indication:BMI 33.0-33.9,adult Start:09-Nov-2020 Instruction Type:Provider Instructions for Treatment How to Access Health Informa tion Online using Patient Portal and [employer] Apps Indication:BMI 33.0-33.9,adult Start:09-Nov-2020 Instruction Type:Patient Education Patient Instructions Indication:BMI 33.0-33.9,adult Start:27-Oct-2020 Instruction Type:Provider Instructions for Treatment How to Access Health Informa tion Online using Patient Portal and [employer] Apps Indication:BMI 33.0-33.9,adult Start:27-Oct-2020 Instruction Type:Patient Education Patient Instructions Indication:Nonsmoker Start:20-Oct-2020 Instruction Type:Provider Instructions for Treatment How to Access Health Informa tion Online using Patient Portal and [employer] Apps Indication:Nonsmoker Start:20-Oct-2020 Instruction Type:Patient Education Patient Instructions Indication:Nonsmoker Start:13-Mar-2020 Instruction Type:Provider Instructions for Treatment How to Access Health Informa tion Online using Patient Portal and [employer] Apps Indication:Nonsmoker Start:13-Mar-2020 Instruction Type:Patient Education How to access health informa tion online Indication:Nonsmoker Start:25-Sep-2019 Instruction Type:Patient Education How to access health informa tion online - Detail Indication:Nonsmoker Start:25-Sep-2019 Instruction Type:Patient Education Patient Instructions Indication:BMI 33.0-33.9,adult Start:25-Sep-2019 Instruction Type:Provider Instructions for Treatment How to access health informa tion online Indication:Nonsmoker Start:13-Aug-2019 Instruction Type:Patient Education How to access health informa tion online - Detail Indication:Nonsmoker Start:13-Aug-2019 Instruction Type:Patient Education Patient Instructions Indication:BMI 33.0-33.9,adult Start:13-Aug-2019 Instruction Type:Provider Instructions for Treatment How to access health informa tion online Indication:Nonsmoker Start:05-Nov-2018 Instruction Type:Patient Education How to access health informa tion online - Detail Indication:Nonsmoker Start:05-Nov-2018 Instruction Type:Patient Education Patient Instructions Indication:BMI 33.0-33.9,adult Start:05-Nov-2018 Instruction Type:Provider Instructions for Treatment How to access health informa tion online - Detail Indication:Nonsmoker Start:25-Oct-2018 Instruction Type:Patient Education Patient Instructions Indication:Tonsil stone Start:25-Oct-2018 Instruction Type:Provider Instructions for Treatment How to access health informa tion online Indication:Nonsmoker Start:19-Jun-2018 Instruction Type:Patient Education How to access health informa tion online - Detail Indication:Nonsmoker Start:19-Jun-2018 Instruction Type:Patient Education Patient Instructions Indication:Nonsmoker Start:19-Jun-2018 Instruction Type:Provider Instructions for Treatment How to access health informa tion online Indication:Nonsmoker Start:15-Nov-2017 Instruction Type:Patient Education How to access health informa tion online - Detail Indication:Nonsmoker Start:15-Nov-2017 Instruction Type:Patient Education Patient Instructions Indication:Nonsmoker Start:15-Nov-2017 Instruction Type:Provider Instructions for Treatment How to access health informa tion online Indication:Hypercholesterolemia Start:15-Nov-2016 Instruction Type:Patient Education How to access health informa tion online - Detail Indication:Hypercholesterolemia Start:15-Nov-2016 Instruction Type:Patient Education Patient Instructions Indication:BMI 33.0-33.9,adult Start:15-Nov-2016 Instruction Type:Provider Instructions for Treatment How to access health informa tion online Indication:Knee pain, right Start:04-Sep-2015 Instruction Type:Patient Education How to access health informa tion online - Detail Indication:Knee pain, right Start:04-Sep-2015 Instruction Type:Patient Education Patient Instructions Indication:Knee pain, right Start:04-Sep-2015 Instruction Type:Provider Instructions for Treatment How to access health informa tion online Indication:Physical exam for work/school/camp (Renamed from Encounter for school health examination) Start:18-Nov-2014 Instruction Type:Patient Education How to access health informa tion online - Detail Indication:Physical exam for work/school/camp (Renamed from Encounter for school health examination) Start:18-Nov-2014 Instruction Type:Patient Education Patient Instructions Indication:Physical exam for work/school/camp (Renamed from Encounter for school health examination) Start:18-Nov-2014 Instruction Type:Provider Instructions for Treatment How to access health informa tion online Indication:Sore throat Start:14-Oct-2014 Instruction Type:Patient Education How to access health informa tion online - Detail Indication:Sore throat Start:14-Oct-2014 Instruction Type:Patient Education Patient Instructions Indication:Sore throat Start:14-Oct-2014 Instruction Type:Provider Instructions for Treatment Patient Instructions Indication:Annual physical exam Start:12-Nov-2013 Instruction Type:Provider Instructions for Treatment How to access health informa tion online - Detail Indication:Annual physical exam Start:12-Nov-2013 Instruction Type:Patient Education How to access health informa tion online Indication:Annual physical exam Start:12-Nov-2013 Instruction Type:Patient Education Patient Instructions Indication:Knee pain Start:21-Jan-2013 Instruction Type:Provider Instructions for Treatment Patient Instructions Indication:Hypercholesterolemia Start:16-Nov-2012 Instruction Type:Provider Instructions for Treatment Patient Instructions Indication:Nausea Start:31-May-2012 Instruction Type:Provider Instructions for Treatment Patient Instructions Indication:Low back pain potentially associated with radiculopathy Start:03-Apr-2012 Instruction Type:Provider Instructions for Treatment [facility]; [facility] Work Phone: Instructions* Name Dates Details Patient Instructions Indication:Nonsmoker Start:01-Jul-2022 Instruction Type:Provider Instructions for Treatment How to Access Health Informa tion Online using Patient Portal and [employer] Apps Indication:Nonsmoker Start:01-Jul-2022 Instruction Type:Patient Education Patient Instructions Indication:Cough Start:14-Jun-2022 Instruction Type:Provider Instructions for Treatment How to Access Health Informa tion Online using Patient Portal and [employer] Apps Indication:Cough Start:14-Jun-2022 Instruction Type:Patient Education Patient Instructions Indication:Urticaria, acute Start:28-Mar-2022 Instruction Type:Provider Instructions for Treatment How to Access Health Informa tion Online using Patient Portal and [employer] Apps Indication:Urticaria, acute Start:28-Mar-2022 Instruction Type:Patient Education Patient Instructions Indication:Nonsmoker Start:14-Dec-2021 Instruction Type:Provider Instructions for Treatment How to Access Health Informa tion Online using Patient Portal and [employer] Apps Indication:Nonsmoker Start:14-Dec-2021 Instruction Type:Patient Education Patient Instructions Indication:Encounter for annual general medical examination with abnormal findings in adult Start:14-Dec-2021 Instruction Type:Provider Instructions for Treatment How to Access Health Informa tion Online using Patient Portal and [employer] Apps Indication:Encounter for annual general medical examination with abnormal findings in adult Start:14-Dec-2021 Instruction Type:Patient Education Patient Instructions Indication:Vertigo Start:06-Apr-2021 Instruction Type:Provider Instructions for Treatment How to Access Health Informa tion Online using Patient Portal and [employer] Apps Indication:Vertigo Start:06-Apr-2021 Instruction Type:Patient Education Patient Instructions Indication:BMI 33.0-33.9,adult Start:11-Jan-2021 Instruction Type:Provider Instructions for Treatment How to Access Health Informa tion Online using Patient Portal and [employer] Apps Indication:BMI 33.0-33.9,adult Start:11-Jan-2021 Instruction Type:Patient Education Patient Instructions Indication:BMI 33.0-33.9,adult Start:09-Nov-2020 Instruction Type:Provider Instructions for Treatment How to Access Health Informa tion Online using Patient Portal and [employer] Apps Indication:BMI 33.0-33.9,adult Start:09-Nov-2020 Instruction Type:Patient Education Patient Instructions Indication:BMI 33.0-33.9,adult Start:27-Oct-2020 Instruction Type:Provider Instructions for Treatment How to Access Health Informa tion Online using Patient Portal and [employer] Apps Indication:BMI 33.0-33.9,adult Start:27-Oct-2020 Instruction Type:Patient Education Patient Instructions Indication:Nonsmoker Start:20-Oct-2020 Instruction Type:Provider Instructions for Treatment How to Access Health Informa tion Online using Patient Portal and [employer] Apps Indication:Nonsmoker Start:20-Oct-2020 Instruction Type:Patient Education Patient Instructions Indication:Nonsmoker Start:13-Mar-2020 Instruction Type:Provider Instructions for Treatment How to Access Health Informa tion Online using Patient Portal and [employer] Apps Indication:Nonsmoker Start:13-Mar-2020 Instruction Type:Patient Education How to access health informa tion online Indication:Nonsmoker Start:25-Sep-2019 Instruction Type:Patient Education How to access health informa tion online - Detail Indication:Nonsmoker Start:25-Sep-2019 Instruction Type:Patient Education Patient Instructions Indication:BMI 33.0-33.9,adult Start:25-Sep-2019 Instruction Type:Provider Instructions for Treatment How to access health informa tion online Indication:Nonsmoker Start:13-Aug-2019 Instruction Type:Patient Education How to access health informa tion online - Detail Indication:Nonsmoker Start:13-Aug-2019 Instruction Type:Patient Education Patient Instructions Indication:BMI 33.0-33.9,adult Start:13-Aug-2019 Instruction Type:Provider Instructions for Treatment How to access health informa tion online Indication:Nonsmoker Start:05-Nov-2018 Instruction Type:Patient Education How to access health informa tion online - Detail Indication:Nonsmoker Start:05-Nov-2018 Instruction Type:Patient Education Patient Instructions Indication:BMI 33.0-33.9,adult Start:05-Nov-2018 Instruction Type:Provider Instructions for Treatment How to access health informa tion online - Detail Indication:Nonsmoker Start:25-Oct-2018 Instruction Type:Patient Education Patient Instructions Indication:Tonsil stone Start:25-Oct-2018 Instruction Type:Provider Instructions for Treatment How to access health informa tion online Indication:Nonsmoker Start:19-Jun-2018 Instruction Type:Patient Education How to access health informa tion online - Detail Indication:Nonsmoker Start:19-Jun-2018 Instruction Type:Patient Education Patient Instructions Indication:Nonsmoker Start:19-Jun-2018 Instruction Type:Provider Instructions for Treatment How to access health informa tion online Indication:Nonsmoker Start:15-Nov-2017 Instruction Type:Patient Education How to access health informa tion online - Detail Indication:Nonsmoker Start:15-Nov-2017 Instruction Type:Patient Education Patient Instructions Indication:Nonsmoker Start:15-Nov-2017 Instruction Type:Provider Instructions for Treatment How to access health informa tion online Indication:Hypercholesterolemia Start:15-Nov-2016 Instruction Type:Patient Education How to access health informa tion online - Detail Indication:Hypercholesterolemia Start:15-Nov-2016 Instruction Type:Patient Education Patient Instructions Indication:BMI 33.0-33.9,adult Start:15-Nov-2016 Instruction Type:Provider Instructions for Treatment How to access health informa tion online Indication:Knee pain, right Start:04-Sep-2015 Instruction Type:Patient Education How to access health informa tion online - Detail Indication:Knee pain, right Start:04-Sep-2015 Instruction Type:Patient Education Patient Instructions Indication:Knee pain, right Start:04-Sep-2015 Instruction Type:Provider Instructions for Treatment How to access health informa tion online Indication:Physical exam for work/school/camp (Renamed from Encounter for school health examination) Start:18-Nov-2014 Instruction Type:Patient Education How to access health informa tion online - Detail Indication:Physical exam for work/school/camp (Renamed from Encounter for school health examination) Start:18-Nov-2014 Instruction Type:Patient Education Patient Instructions Indication:Physical exam for work/school/camp (Renamed from Encounter for school health examination) Start:18-Nov-2014 Instruction Type:Provider Instructions for Treatment How to access health informa tion online Indication:Sore throat Start:14-Oct-2014 Instruction Type:Patient Education How to access health informa tion online - Detail Indication:Sore throat Start:14-Oct-2014 Instruction Type:Patient Education Patient Instructions Indication:Sore throat Start:14-Oct-2014 Instruction Type:Provider Instructions for Treatment Patient Instructions Indication:Annual physical exam Start:12-Nov-2013 Instruction Type:Provider Instructions for Treatment How to access health informa tion online - Detail Indication:Annual physical exam Start:12-Nov-2013 Instruction Type:Patient Education How to access health informa tion online Indication:Annual physical exam Start:12-Nov-2013 Instruction Type:Patient Education Patient Instructions Indication:Knee pain Start:21-Jan-2013 Instruction Type:Provider Instructions for Treatment Patient Instructions Indication:Hypercholesterolemia Start:16-Nov-2012 Instruction Type:Provider Instructions for Treatment Patient Instructions Indication:Nausea Start:31-May-2012 Instruction Type:Provider Instructions for Treatment Patient Instructions Indication:Low back pain potentially associated with radiculopathy Start:03-Apr-2012 Instruction Type:Provider Instructions for Treatment [facility]; [facility] Work Phone: Instructions* Name Dates Details Patient Instructions Indication:BMI 33.0-33.9,adult Start:31-Oct-2022 Instruction Type:Provider Instructions for Treatment How to Access Health Informa tion Online using Patient Portal and [employer] Apps Indication:BMI 33.0-33.9,adult Start:31-Oct-2022 Instruction Type:Patient Education Patient Instructions Indication:Nonsmoker Start:01-Jul-2022 Instruction Type:Provider Instructions for Treatment How to Access Health Informa tion Online using Patient Portal and [employer] Apps Indication:Nonsmoker Start:01-Jul-2022 Instruction Type:Patient Education Patient Instructions Indication:Cough Start:14-Jun-2022 Instruction Type:Provider Instructions for Treatment How to Access Health Informa tion Online using Patient Portal and [employer] Apps Indication:Cough Start:14-Jun-2022 Instruction Type:Patient Education Patient Instructions Indication:Urticaria, acute Start:28-Mar-2022 Instruction Type:Provider Instructions for Treatment How to Access Health Informa tion Online using Patient Portal and [employer] Apps Indication:Urticaria, acute Start:28-Mar-2022 Instruction Type:Patient Education Patient Instructions Indication:Nonsmoker Start:14-Dec-2021 Instruction Type:Provider Instructions for Treatment How to Access Health Informa tion Online using Patient Portal and [employer] Apps Indication:Nonsmoker Start:14-Dec-2021 Instruction Type:Patient Education Patient Instructions Indication:Encounter for annual general medical examination with abnormal findings in adult Start:14-Dec-2021 Instruction Type:Provider Instructions for Treatment How to Access Health Informa tion Online using Patient Portal and [employer] Apps Indication:Encounter for annual general medical examination with abnormal findings in adult Start:14-Dec-2021 Instruction Type:Patient Education Patient Instructions Indication:Vertigo Start:06-Apr-2021 Instruction Type:Provider Instructions for Treatment How to Access Health Informa tion Online using Patient Portal and [employer] Apps Indication:Vertigo Start:06-Apr-2021 Instruction Type:Patient Education Patient Instructions Indication:BMI 33.0-33.9,adult Start:11-Jan-2021 Instruction Type:Provider Instructions for Treatment How to Access Health Informa tion Online using Patient Portal and [employer] Apps Indication:BMI 33.0-33.9,adult Start:11-Jan-2021 Instruction Type:Patient Education Patient Instructions Indication:BMI 33.0-33.9,adult Start:09-Nov-2020 Instruction Type:Provider Instructions for Treatment How to Access Health Informa tion Online using Patient Portal and [employer] Apps Indication:BMI 33.0-33.9,adult Start:09-Nov-2020 Instruction Type:Patient Education Patient Instructions Indication:BMI 33.0-33.9,adult Start:27-Oct-2020 Instruction Type:Provider Instructions for Treatment How to Access Health Informa tion Online using Patient Portal and [employer] Apps Indication:BMI 33.0-33.9,adult Start:27-Oct-2020 Instruction Type:Patient Education Patient Instructions Indication:Nonsmoker Start:20-Oct-2020 Instruction Type:Provider Instructions for Treatment How to Access Health Informa tion Online using Patient Portal and [employer] Apps Indication:Nonsmoker Start:20-Oct-2020 Instruction Type:Patient Education Patient Instructions Indication:Nonsmoker Start:13-Mar-2020 Instruction Type:Provider Instructions for Treatment How to Access Health Informa tion Online using Patient Portal and [employer] Apps Indication:Nonsmoker Start:13-Mar-2020 Instruction Type:Patient Education How to access health informa tion online Indication:Nonsmoker Start:25-Sep-2019 Instruction Type:Patient Education How to access health informa tion online - Detail Indication:Nonsmoker Start:25-Sep-2019 Instruction Type:Patient Education Patient Instructions Indication:BMI 33.0-33.9,adult Start:25-Sep-2019 Instruction Type:Provider Instructions for Treatment How to access health informa tion online Indication:Nonsmoker Start:13-Aug-2019 Instruction Type:Patient Education How to access health informa tion online - Detail Indication:Nonsmoker Start:13-Aug-2019 Instruction Type:Patient Education Patient Instructions Indication:BMI 33.0-33.9,adult Start:13-Aug-2019 Instruction Type:Provider Instructions for Treatment How to access health informa tion online Indication:Nonsmoker Start:05-Nov-2018 Instruction Type:Patient Education How to access health informa tion online - Detail Indication:Nonsmoker Start:05-Nov-2018 Instruction Type:Patient Education Patient Instructions Indication:BMI 33.0-33.9,adult Start:05-Nov-2018 Instruction Type:Provider Instructions for Treatment How to access health informa tion online - Detail Indication:Nonsmoker Start:25-Oct-2018 Instruction Type:Patient Education Patient Instructions Indication:Tonsil stone Start:25-Oct-2018 Instruction Type:Provider Instructions for Treatment How to access health informa tion online Indication:Nonsmoker Start:19-Jun-2018 Instruction Type:Patient Education How to access health informa tion online - Detail Indication:Nonsmoker Start:19-Jun-2018 Instruction Type:Patient Education Patient Instructions Indication:Nonsmoker Start:19-Jun-2018 Instruction Type:Provider Instructions for Treatment How to access health informa tion online Indication:Nonsmoker Start:15-Nov-2017 Instruction Type:Patient Education How to access health informa tion online - Detail Indication:Nonsmoker Start:15-Nov-2017 Instruction Type:Patient Education Patient Instructions Indication:Nonsmoker Start:15-Nov-2017 Instruction Type:Provider Instructions for Treatment How to access health informa tion online Indication:Hypercholesterolemia Start:15-Nov-2016 Instruction Type:Patient Education How to access health informa tion online - Detail Indication:Hypercholesterolemia Start:15-Nov-2016 Instruction Type:Patient Education Patient Instructions Indication:BMI 33.0-33.9,adult Start:15-Nov-2016 Instruction Type:Provider Instructions for Treatment How to access health informa tion online Indication:Knee pain, right Start:04-Sep-2015 Instruction Type:Patient Education How to access health informa tion online - Detail Indication:Knee pain, right Start:04-Sep-2015 Instruction Type:Patient Education Patient Instructions Indication:Knee pain, right Start:04-Sep-2015 Instruction Type:Provider Instructions for Treatment How to access health informa tion online Indication:Physical exam for work/school/camp (Renamed from Encounter for school health examination) Start:18-Nov-2014 Instruction Type:Patient Education How to access health informa tion online - Detail Indication:Physical exam for work/school/camp (Renamed from Encounter for school health examination) Start:18-Nov-2014 Instruction Type:Patient Education Patient Instructions Indication:Physical exam for work/school/camp (Renamed from Encounter for school health examination) Start:18-Nov-2014 Instruction Type:Provider Instructions for Treatment How to access health informa tion online Indication:Sore throat Start:14-Oct-2014 Instruction Type:Patient Education How to access health informa tion online - Detail Indication:Sore throat Start:14-Oct-2014 Instruction Type:Patient Education Patient Instructions Indication:Sore throat Start:14-Oct-2014 Instruction Type:Provider Instructions for Treatment Patient Instructions Indication:Annual physical exam Start:12-Nov-2013 Instruction Type:Provider Instructions for Treatment How to access health informa tion online - Detail Indication:Annual physical exam Start:12-Nov-2013 Instruction Type:Patient Education How to access health informa tion online Indication:Annual physical exam Start:12-Nov-2013 Instruction Type:Patient Education Patient Instructions Indication:Knee pain Start:21-Jan-2013 Instruction Type:Provider Instructions for Treatment Patient Instructions Indication:Hypercholesterolemia Start:16-Nov-2012 Instruction Type:Provider Instructions for Treatment Patient Instructions Indication:Nausea Start:31-May-2012 Instruction Type:Provider Instructions for Treatment Patient Instructions Indication:Low back pain potentially associated with radiculopathy Start:03-Apr-2012 Instruction Type:Provider Instructions for Treatment [facility]; [facility] Work Phone: Instructions* Name Dates Details Patient Instructions Indication:BMI 33.0-33.9,adult Start:31-Oct-2022 Instruction Type:Provider Instructions for Treatment How to Access Health Informa tion Online using Patient Portal and [employer] Indication:BMI 33.0-33.9,adult Start:31-Oct-2022 Instruction Type:Patient Education Patient Instructions Indication:Nonsmoker Start:01-Jul-2022 Instruction Type:Provider Instructions for Treatment How to Access Health Informa tion Online using Patient Portal and [employer] Apps Indication:Nonsmoker Start:01-Jul-2022 Instruction Type:Patient Education Patient Instructions Indication:Cough Start:14-Jun-2022 Instruction Type:Provider Instructions for Treatment How to Access Health Informa tion Online using Patient Portal and [employer] Apps Indication:Cough Start:14-Jun-2022 Instruction Type:Patient Education Patient Instructions Indication:Urticaria, acute Start:28-Mar-2022 Instruction Type:Provider Instructions for Treatment How to Access Health Informa tion Online using Patient Portal and [employer] Apps Indication:Urticaria, acute Start:28-Mar-2022 Instruction Type:Patient Education Patient Instructions Indication:Nonsmoker Start:14-Dec-2021 Instruction Type:Provider Instructions for Treatment How to Access Health Informa tion Online using Patient Portal and [employer] Apps Indication:Nonsmoker Start:14-Dec-2021 Instruction Type:Patient Education Patient Instructions Indication:Encounter for annual general medical examination with abnormal findings in adult Start:14-Dec-2021 Instruction Type:Provider Instructions for Treatment How to Access Health Informa tion Online using Patient Portal and [employer] Apps Indication:Encounter for annual general medical examination with abnormal findings in adult Start:14-Dec-2021 Instruction Type:Patient Education Patient Instructions Indication:Vertigo Start:06-Apr-2021 Instruction Type:Provider Instructions for Treatment How to Access Health Informa tion Online using Patient Portal and [employer] Apps Indication:Vertigo Start:06-Apr-2021 Instruction Type:Patient Education Patient Instructions Indication:BMI 33.0-33.9,adult Start:11-Jan-2021 Instruction Type:Provider Instructions for Treatment How to Access Health Informa tion Online using Patient Portal and [employer] Apps Indication:BMI 33.0-33.9,adult Start:11-Jan-2021 Instruction Type:Patient Education Patient Instructions Indication:BMI 33.0-33.9,adult Start:09-Nov-2020 Instruction Type:Provider Instructions for Treatment How to Access Health Informa tion Online using Patient Portal and [employer] Apps Indication:BMI 33.0-33.9,adult Start:09-Nov-2020 Instruction Type:Patient Education Patient Instructions Indication:BMI 33.0-33.9,adult Start:27-Oct-2020 Instruction Type:Provider Instructions for Treatment How to Access Health Informa tion Online using Patient Portal and [employer] Apps Indication:BMI 33.0-33.9,adult Start:27-Oct-2020 Instruction Type:Patient Education Patient Instructions Indication:Nonsmoker Start:20-Oct-2020 Instruction Type:Provider Instructions for Treatment How to Access Health Informa tion Online using Patient Portal and [employer] Apps Indication:Nonsmoker Start:20-Oct-2020 Instruction Type:Patient Education Patient Instructions Indication:Nonsmoker Start:13-Mar-2020 Instruction Type:Provider Instructions for Treatment How to Access Health Informa tion Online using Patient Portal and [employer] Apps Indication:Nonsmoker Start:13-Mar-2020 Instruction Type:Patient Education How to access health informa tion online Indication:Nonsmoker Start:25-Sep-2019 Instruction Type:Patient Education How to access health informa tion online - Detail Indication:Nonsmoker Start:25-Sep-2019 Instruction Type:Patient Education Patient Instructions Indication:BMI 33.0-33.9,adult Start:25-Sep-2019 Instruction Type:Provider Instructions for Treatment How to access health informa tion online Indication:Nonsmoker Start:13-Aug-2019 Instruction Type:Patient Education How to access health informa tion online - Detail Indication:Nonsmoker Start:13-Aug-2019 Instruction Type:Patient Education Patient Instructions Indication:BMI 33.0-33.9,adult Start:13-Aug-2019 Instruction Type:Provider Instructions for Treatment How to access health informa tion online Indication:Nonsmoker Start:05-Nov-2018 Instruction Type:Patient Education How to access health informa tion online - Detail Indication:Nonsmoker Start:05-Nov-2018 Instruction Type:Patient Education Patient Instructions Indication:BMI 33.0-33.9,adult Start:05-Nov-2018 Instruction Type:Provider Instructions for Treatment How to access health informa tion online - Detail Indication:Nonsmoker Start:25-Oct-2018 Instruction Type:Patient Education Patient Instructions Indication:Tonsil stone Start:25-Oct-2018 Instruction Type:Provider Instructions for Treatment How to access health informa tion online Indication:Nonsmoker Start:19-Jun-2018 Instruction Type:Patient Education How to access health informa tion online - Detail Indication:Nonsmoker Start:19-Jun-2018 Instruction Type:Patient Education Patient Instructions Indication:Nonsmoker Start:19-Jun-2018 Instruction Type:Provider Instructions for Treatment How to access health informa tion online Indication:Nonsmoker Start:15-Nov-2017 Instruction Type:Patient Education How to access health informa tion online - Detail Indication:Nonsmoker Start:15-Nov-2017 Instruction Type:Patient Education Patient Instructions Indication:Nonsmoker Start:15-Nov-2017 Instruction Type:Provider Instructions for Treatment How to access health informa tion online Indication:Hypercholesterolemia Start:15-Nov-2016 Instruction Type:Patient Education How to access health informa tion online - Detail Indication:Hypercholesterolemia Start:15-Nov-2016 Instruction Type:Patient Education Patient Instructions Indication:BMI 33.0-33.9,adult Start:15-Nov-2016 Instruction Type:Provider Instructions for Treatment How to access health informa tion online Indication:Knee pain, right Start:04-Sep-2015 Instruction Type:Patient Education How to access health informa tion online - Detail Indication:Knee pain, right Start:04-Sep-2015 Instruction Type:Patient Education Patient Instructions Indication:Knee pain, right Start:04-Sep-2015 Instruction Type:Provider Instructions for Treatment How to access health informa tion online Indication:Physical exam for work/school/camp (Renamed from Encounter for school health examination) Start:18-Nov-2014 Instruction Type:Patient Education How to access health informa tion online - Detail Indication:Physical exam for work/school/camp (Renamed from Encounter for school health examination) Start:18-Nov-2014 Instruction Type:Patient Education Patient Instructions Indication:Physical exam for work/school/camp (Renamed from Encounter for school health examination) Start:18-Nov-2014 Instruction Type:Provider Instructions for Treatment How to access health informa tion online Indication:Sore throat Start:14-Oct-2014 Instruction Type:Patient Education How to access health informa tion online - Detail Indication:Sore throat Start:14-Oct-2014 Instruction Type:Patient Education Patient Instructions Indication:Sore throat Start:14-Oct-2014 Instruction Type:Provider Instructions for Treatment Patient Instructions Indication:Annual physical exam Start:12-Nov-2013 Instruction Type:Provider Instructions for Treatment How to access health informa tion online - Detail Indication:Annual physical exam Start:12-Nov-2013 Instruction Type:Patient Education How to access health informa tion online Indication:Annual physical exam Start:12-Nov-2013 Instruction Type:Patient Education Patient Instructions Indication:Knee pain Start:21-Jan-2013 Instruction Type:Provider Instructions for Treatment Patient Instructions Indication:Hypercholesterolemia Start:16-Nov-2012 Instruction Type:Provider Instructions for Treatment Patient Instructions Indication:Nausea Start:31-May-2012 Instruction Type:Provider Instructions for Treatment Patient Instructions Indication:Low back pain potentially associated with radiculopathy Start:03-Apr-2012 Instruction Type:Provider Instructions for Treatment [facility]; [facility] Work Phone: Instructions* Name Dates Details Patient Instructions Indication:BMI 33.0-33.9,adult Start:31-Oct-2022 Instruction Type:Provider Instructions for Treatment How to Access Health Informa tion Online using Patient Portal and [employer] Apps Indication:BMI 33.0-33.9,adult Start:31-Oct-2022 Instruction Type:Patient Education Patient Instructions Indication:Nonsmoker Start:01-Jul-2022 Instruction Type:Provider Instructions for Treatment How to Access Health Informa tion Online using Patient Portal and [employer] Apps Indication:Nonsmoker Start:01-Jul-2022 Instruction Type:Patient Education Patient Instructions Indication:Cough Start:14-Jun-2022 Instruction Type:Provider Instructions for Treatment How to Access Health Informa tion Online using Patient Portal and [employer] Apps Indication:Cough Start:14-Jun-2022 Instruction Type:Patient Education Patient Instructions Indication:Urticaria, acute Start:28-Mar-2022 Instruction Type:Provider Instructions for Treatment How to Access Health Informa tion Online using Patient Portal and [employer] Apps Indication:Urticaria, acute Start:28-Mar-2022 Instruction Type:Patient Education Patient Instructions Indication:Nonsmoker Start:14-Dec-2021 Instruction Type:Provider Instructions for Treatment How to Access Health Informa tion Online using Patient Portal and [employer] Apps Indication:Nonsmoker Start:14-Dec-2021 Instruction Type:Patient Education Patient Instructions Indication:Encounter for annual general medical examination with abnormal findings in adult Start:14-Dec-2021 Instruction Type:Provider Instructions for Treatment How to Access Health Informa tion Online using Patient Portal and [employer] Apps Indication:Encounter for annual general medical examination with abnormal findings in adult Start:14-Dec-2021 Instruction Type:Patient Education Patient Instructions Indication:Vertigo Start:06-Apr-2021 Instruction Type:Provider Instructions for Treatment How to Access Health Informa tion Online using Patient Portal and [employer] Apps Indication:Vertigo Start:06-Apr-2021 Instruction Type:Patient Education Patient Instructions Indication:BMI 33.0-33.9,adult Start:11-Jan-2021 Instruction Type:Provider Instructions for Treatment How to Access Health Informa tion Online using Patient Portal and [employer] Apps Indication:BMI 33.0-33.9,adult Start:11-Jan-2021 Instruction Type:Patient Education Patient Instructions Indication:BMI 33.0-33.9,adult Start:09-Nov-2020 Instruction Type:Provider Instructions for Treatment How to Access Health Informa tion Online using Patient Portal and [employer] Apps Indication:BMI 33.0-33.9,adult Start:09-Nov-2020 Instruction Type:Patient Education Patient Instructions Indication:BMI 33.0-33.9,adult Start:27-Oct-2020 Instruction Type:Provider Instructions for Treatment How to Access Health Informa tion Online using Patient Portal and [employer] Apps Indication:BMI 33.0-33.9,adult Start:27-Oct-2020 Instruction Type:Patient Education Patient Instructions Indication:Nonsmoker Start:20-Oct-2020 Instruction Type:Provider Instructions for Treatment How to Access Health Informa tion Online using Patient Portal and [employer] Apps Indication:Nonsmoker Start:20-Oct-2020 Instruction Type:Patient Education Patient Instructions Indication:Nonsmoker Start:13-Mar-2020 Instruction Type:Provider Instructions for Treatment How to Access Health Informa tion Online using Patient Portal and [employer] Apps Indication:Nonsmoker Start:13-Mar-2020 Instruction Type:Patient Education How to access health informa tion online Indication:Nonsmoker Start:25-Sep-2019 Instruction Type:Patient Education How to access health informa tion online - Detail Indication:Nonsmoker Start:25-Sep-2019 Instruction Type:Patient Education Patient Instructions Indication:BMI 33.0-33.9,adult Start:25-Sep-2019 Instruction Type:Provider Instructions for Treatment How to access health informa tion online Indication:Nonsmoker Start:13-Aug-2019 Instruction Type:Patient Education How to access health informa tion online - Detail Indication:Nonsmoker Start:13-Aug-2019 Instruction Type:Patient Education Patient Instructions Indication:BMI 33.0-33.9,adult Start:13-Aug-2019 Instruction Type:Provider Instructions for Treatment How to access health informa tion online Indication:Nonsmoker Start:05-Nov-2018 Instruction Type:Patient Education How to access health informa tion online - Detail Indication:Nonsmoker Start:05-Nov-2018 Instruction Type:Patient Education Patient Instructions Indication:BMI 33.0-33.9,adult Start:05-Nov-2018 Instruction Type:Provider Instructions for Treatment How to access health informa tion online - Detail Indication:Nonsmoker Start:25-Oct-2018 Instruction Type:Patient Education Patient Instructions Indication:Tonsil stone Start:25-Oct-2018 Instruction Type:Provider Instructions for Treatment How to access health informa tion online Indication:Nonsmoker Start:19-Jun-2018 Instruction Type:Patient Education How to access health informa tion online - Detail Indication:Nonsmoker Start:19-Jun-2018 Instruction Type:Patient Education Patient Instructions Indication:Nonsmoker Start:19-Jun-2018 Instruction Type:Provider Instructions for Treatment How to access health informa tion online Indication:Nonsmoker Start:15-Nov-2017 Instruction Type:Patient Education How to access health informa tion online - Detail Indication:Nonsmoker Start:15-Nov-2017 Instruction Type:Patient Education Patient Instructions Indication:Nonsmoker Start:15-Nov-2017 Instruction Type:Provider Instructions for Treatment How to access health informa tion online Indication:Hypercholesterolemia Start:15-Nov-2016 Instruction Type:Patient Education How to access health informa tion online - Detail Indication:Hypercholesterolemia Start:15-Nov-2016 Instruction Type:Patient Education Patient Instructions Indication:BMI 33.0-33.9,adult Start:15-Nov-2016 Instruction Type:Provider Instructions for Treatment How to access health informa tion online Indication:Knee pain, right Start:04-Sep-2015 Instruction Type:Patient Education How to access health informa tion online - Detail Indication:Knee pain, right Start:04-Sep-2015 Instruction Type:Patient Education Patient Instructions Indication:Knee pain, right Start:04-Sep-2015 Instruction Type:Provider Instructions for Treatment How to access health informa tion online Indication:Physical exam for work/school/camp (Renamed from Encounter for school health examination) Start:18-Nov-2014 Instruction Type:Patient Education How to access health informa tion online - Detail Indication:Physical exam for work/school/camp (Renamed from Encounter for school health examination) Start:18-Nov-2014 Instruction Type:Patient Education Patient Instructions Indication:Physical exam for work/school/camp (Renamed from Encounter for school health examination) Start:18-Nov-2014 Instruction Type:Provider Instructions for Treatment How to access health informa tion online Indication:Sore throat Start:14-Oct-2014 Instruction Type:Patient Education How to access health informa tion online - Detail Indication:Sore throat Start:14-Oct-2014 Instruction Type:Patient Education Patient Instructions Indication:Sore throat Start:14-Oct-2014 Instruction Type:Provider Instructions for Treatment Patient Instructions Indication:Annual physical exam Start:12-Nov-2013 Instruction Type:Provider Instructions for Treatment How to access health informa tion online - Detail Indication:Annual physical exam Start:12-Nov-2013 Instruction Type:Patient Education How to access health informa tion online Indication:Annual physical exam Start:12-Nov-2013 Instruction Type:Patient Education Patient Instructions Indication:Knee pain Start:21-Jan-2013 Instruction Type:Provider Instructions for Treatment Patient Instructions Indication:Hypercholesterolemia Start:16-Nov-2012 Instruction Type:Provider Instructions for Treatment Patient Instructions Indication:Nausea Start:31-May-2012 Instruction Type:Provider Instructions for Treatment Patient Instructions Indication:Low back pain potentially associated with radiculopathy Start:03-Apr-2012 Instruction Type:Provider Instructions for Treatment [facility]; [facility] Work Phone: Instructions* Name Dates Details Patient Instructions Indication:BMI 33.0-33.9,adult Start:31-Oct-2022 Instruction Type:Provider Instructions for Treatment How to Access Health Informa tion Online using Patient Portal and [employer] Apps Indication:BMI 33.0-33.9,adult Start:31-Oct-2022 Instruction Type:Patient Education Patient Instructions Indication:Nonsmoker Start:01-Jul-2022 Instruction Type:Provider Instructions for Treatment How to Access Health Informa tion Online using Patient Portal and [employer] Apps Indication:Nonsmoker Start:01-Jul-2022 Instruction Type:Patient Education Patient Instructions Indication:Cough Start:14-Jun-2022 Instruction Type:Provider Instructions for Treatment How to Access Health Informa tion Online using Patient Portal and [employer] Apps Indication:Cough Start:14-Jun-2022 Instruction Type:Patient Education Patient Instructions Indication:Urticaria, acute Start:28-Mar-2022 Instruction Type:Provider Instructions for Treatment How to Access Health Informa tion Online using Patient Portal and [employer] Apps Indication:Urticaria, acute Start:28-Mar-2022 Instruction Type:Patient Education Patient Instructions Indication:Nonsmoker Start:14-Dec-2021 Instruction Type:Provider Instructions for Treatment How to Access Health Informa tion Online using Patient Portal and [employer] Apps Indication:Nonsmoker Start:14-Dec-2021 Instruction Type:Patient Education Patient Instructions Indication:Encounter for annual general medical examination with abnormal findings in adult Start:14-Dec-2021 Instruction Type:Provider Instructions for Treatment How to Access Health Informa tion Online using Patient Portal and [employer] Apps Indication:Encounter for annual general medical examination with abnormal findings in adult Start:14-Dec-2021 Instruction Type:Patient Education Patient Instructions Indication:Vertigo Start:06-Apr-2021 Instruction Type:Provider Instructions for Treatment How to Access Health Informa tion Online using Patient Portal and [employer] Apps Indication:Vertigo Start:06-Apr-2021 Instruction Type:Patient Education Patient Instructions Indication:BMI 33.0-33.9,adult Start:11-Jan-2021 Instruction Type:Provider Instructions for Treatment How to Access Health Informa tion Online using Patient Portal and [employer] Apps Indication:BMI 33.0-33.9,adult Start:11-Jan-2021 Instruction Type:Patient Education Patient Instructions Indication:BMI 33.0-33.9,adult Start:09-Nov-2020 Instruction Type:Provider Instructions for Treatment How to Access Health Informa tion Online using Patient Portal and [employer] Apps Indication:BMI 33.0-33.9,adult Start:09-Nov-2020 Instruction Type:Patient Education Patient Instructions Indication:BMI 33.0-33.9,adult Start:27-Oct-2020 Instruction Type:Provider Instructions for Treatment How to Access Health Informa tion Online using Patient Portal and [employer] Apps Indication:BMI 33.0-33.9,adult Start:27-Oct-2020 Instruction Type:Patient Education Patient Instructions Indication:Nonsmoker Start:20-Oct-2020 Instruction Type:Provider Instructions for Treatment How to Access Health Informa tion Online using Patient Portal and [employer] Apps Indication:Nonsmoker Start:20-Oct-2020 Instruction Type:Patient Education Patient Instructions Indication:Nonsmoker Start:13-Mar-2020 Instruction Type:Provider Instructions for Treatment How to Access Health Informa tion Online using Patient Portal and [employer] Apps Indication:Nonsmoker Start:13-Mar-2020 Instruction Type:Patient Education How to access health informa tion online Indication:Nonsmoker Start:25-Sep-2019 Instruction Type:Patient Education How to access health informa tion online - Detail Indication:Nonsmoker Start:25-Sep-2019 Instruction Type:Patient Education Patient Instructions Indication:BMI 33.0-33.9,adult Start:25-Sep-2019 Instruction Type:Provider Instructions for Treatment How to access health informa tion online Indication:Nonsmoker Start:13-Aug-2019 Instruction Type:Patient Education How to access health informa tion online - Detail Indication:Nonsmoker Start:13-Aug-2019 Instruction Type:Patient Education Patient Instructions Indication:BMI 33.0-33.9,adult Start:13-Aug-2019 Instruction Type:Provider Instructions for Treatment How to access health informa tion online Indication:Nonsmoker Start:05-Nov-2018 Instruction Type:Patient Education How to access health informa tion online - Detail Indication:Nonsmoker Start:05-Nov-2018 Instruction Type:Patient Education Patient Instructions Indication:BMI 33.0-33.9,adult Start:05-Nov-2018 Instruction Type:Provider Instructions for Treatment How to access health informa tion online - Detail Indication:Nonsmoker Start:25-Oct-2018 Instruction Type:Patient Education Patient Instructions Indication:Tonsil stone Start:25-Oct-2018 Instruction Type:Provider Instructions for Treatment How to access health informa tion online Indication:Nonsmoker Start:19-Jun-2018 Instruction Type:Patient Education How to access health informa tion online - Detail Indication:Nonsmoker Start:19-Jun-2018 Instruction Type:Patient Education Patient Instructions Indication:Nonsmoker Start:19-Jun-2018 Instruction Type:Provider Instructions for Treatment How to access health informa tion online Indication:Nonsmoker Start:15-Nov-2017 Instruction Type:Patient Education How to access health informa tion online - Detail Indication:Nonsmoker Start:15-Nov-2017 Instruction Type:Patient Education Patient Instructions Indication:Nonsmoker Start:15-Nov-2017 Instruction Type:Provider Instructions for Treatment How to access health informa tion online Indication:Hypercholesterolemia Start:15-Nov-2016 Instruction Type:Patient Education How to access health informa tion online - Detail Indication:Hypercholesterolemia Start:15-Nov-2016 Instruction Type:Patient Education Patient Instructions Indication:BMI 33.0-33.9,adult Start:15-Nov-2016 Instruction Type:Provider Instructions for Treatment How to access health informa tion online Indication:Knee pain, right Start:04-Sep-2015 Instruction Type:Patient Education How to access health informa tion online - Detail Indication:Knee pain, right Start:04-Sep-2015 Instruction Type:Patient Education Patient Instructions Indication:Knee pain, right Start:04-Sep-2015 Instruction Type:Provider Instructions for Treatment How to access health informa tion online Indication:Physical exam for work/school/camp (Renamed from Encounter for school health examination) Start:18-Nov-2014 Instruction Type:Patient Education How to access health informa tion online - Detail Indication:Physical exam for work/school/camp (Renamed from Encounter for school health examination) Start:18-Nov-2014 Instruction Type:Patient Education Patient Instructions Indication:Physical exam for work/school/camp (Renamed from Encounter for school health examination) Start:18-Nov-2014 Instruction Type:Provider Instructions for Treatment How to access health informa tion online Indication:Sore throat Start:14-Oct-2014 Instruction Type:Patient Education How to access health informa tion online - Detail Indication:Sore throat Start:14-Oct-2014 Instruction Type:Patient Education Patient Instructions Indication:Sore throat Start:14-Oct-2014 Instruction Type:Provider Instructions for Treatment Patient Instructions Indication:Annual physical exam Start:12-Nov-2013 Instruction Type:Provider Instructions for Treatment How to access health informa tion online - Detail Indication:Annual physical exam Start:12-Nov-2013 Instruction Type:Patient Education How to access health informa tion online Indication:Annual physical exam Start:12-Nov-2013 Instruction Type:Patient Education Patient Instructions Indication:Knee pain Start:21-Jan-2013 Instruction Type:Provider Instructions for Treatment Patient Instructions Indication:Hypercholesterolemia Start:16-Nov-2012 Instruction Type:Provider Instructions for Treatment Patient Instructions Indication:Nausea Start:31-May-2012 Instruction Type:Provider Instructions for Treatment Patient Instructions Indication:Low back pain potentially associated with radiculopathy Start:03-Apr-2012 Instruction Type:Provider Instructions for Treatment [facility]; [facility] Work Phone: Instructions* Name Dates Details Patient Instructions Indication:BMI 33.0-33.9,adult Start:31-Oct-2022 Instruction Type:Provider Instructions for Treatment How to Access Health Informa tion Online using Patient Portal and [employer] Indication:BMI 33.0-33.9,adult Start:31-Oct-2022 Instruction Type:Patient Education Patient Instructions Indication:Nonsmoker Start:01-Jul-2022 Instruction Type:Provider Instructions for Treatment How to Access Health Informa tion Online using Patient Portal and [employer] Apps Indication:Nonsmoker Start:01-Jul-2022 Instruction Type:Patient Education Patient Instructions Indication:Cough Start:14-Jun-2022 Instruction Type:Provider Instructions for Treatment How to Access Health Informa tion Online using Patient Portal and [employer] Apps Indication:Cough Start:14-Jun-2022 Instruction Type:Patient Education Patient Instructions Indication:Urticaria, acute Start:28-Mar-2022 Instruction Type:Provider Instructions for Treatment How to Access Health Informa tion Online using Patient Portal and [employer] Apps Indication:Urticaria, acute Start:28-Mar-2022 Instruction Type:Patient Education Patient Instructions Indication:Nonsmoker Start:14-Dec-2021 Instruction Type:Provider Instructions for Treatment How to Access Health Informa tion Online using Patient Portal and [employer] Apps Indication:Nonsmoker Start:14-Dec-2021 Instruction Type:Patient Education Patient Instructions Indication:Encounter for annual general medical examination with abnormal findings in adult Start:14-Dec-2021 Instruction Type:Provider Instructions for Treatment How to Access Health Informa tion Online using Patient Portal and [employer] Apps Indication:Encounter for annual general medical examination with abnormal findings in adult Start:14-Dec-2021 Instruction Type:Patient Education Patient Instructions Indication:Vertigo Start:06-Apr-2021 Instruction Type:Provider Instructions for Treatment How to Access Health Informa tion Online using Patient Portal and [employer]rd [employer] Apps Indication:Vertigo Start:06-Apr-2021 Instruction Type:Patient Education Patient Instructions Indication:BMI 33.0-33.9,adult Start:11-Jan-2021 Instruction Type:Provider Instructions for Treatment How to Access Health Informa tion Online using Patient Portal and [employer]rd [employer] Apps Indication:BMI 33.0-33.9,adult Start:11-Jan-2021 Instruction Type:Patient Education Patient Instructions Indication:BMI 33.0-33.9,adult Start:09-Nov-2020 Instruction Type:Provider Instructions for Treatment How to Access Health Informa tion Online using Patient Portal and [employer] Apps Indication:BMI 33.0-33.9,adult Start:09-Nov-2020 Instruction Type:Patient Education Patient Instructions Indication:BMI 33.0-33.9,adult Start:27-Oct-2020 Instruction Type:Provider Instructions for Treatment How to Access Health Informa tion Online using Patient Portal and [employer] Apps Indication:BMI 33.0-33.9,adult Start:27-Oct-2020 Instruction Type:Patient Education Patient Instructions Indication:Nonsmoker Start:20-Oct-2020 Instruction Type:Provider Instructions for Treatment How to Access Health Informa tion Online using Patient Portal and [employer] Apps Indication:Nonsmoker Start:20-Oct-2020 Instruction Type:Patient Education Patient Instructions Indication:Nonsmoker Start:13-Mar-2020 Instruction Type:Provider Instructions for Treatment How to Access Health Informa tion Online using Patient Portal and [employer]rd [employer] Apps Indication:Nonsmoker Start:13-Mar-2020 Instruction Type:Patient Education How to access health informa tion online Indication:Nonsmoker Start:25-Sep-2019 Instruction Type:Patient Education How to access health informa tion online - Detail Indication:Nonsmoker Start:25-Sep-2019 Instruction Type:Patient Education Patient Instructions Indication:BMI 33.0-33.9,adult Start:25-Sep-2019 Instruction Type:Provider Instructions for Treatment How to access health informa tion online Indication:Nonsmoker Start:13-Aug-2019 Instruction Type:Patient Education How to access health informa tion online - Detail Indication:Nonsmoker Start:13-Aug-2019 Instruction Type:Patient Education Patient Instructions Indication:BMI 33.0-33.9,adult Start:13-Aug-2019 Instruction Type:Provider Instructions for Treatment How to access health informa tion online Indication:Nonsmoker Start:05-Nov-2018 Instruction Type:Patient Education How to access health informa tion online - Detail Indication:Nonsmoker Start:05-Nov-2018 Instruction Type:Patient Education Patient Instructions Indication:BMI 33.0-33.9,adult Start:05-Nov-2018 Instruction Type:Provider Instructions for Treatment How to access health informa tion online - Detail Indication:Nonsmoker Start:25-Oct-2018 Instruction Type:Patient Education Patient Instructions Indication:Tonsil stone Start:25-Oct-2018 Instruction Type:Provider Instructions for Treatment How to access health informa tion online Indication:Nonsmoker Start:19-Jun-2018 Instruction Type:Patient Education How to access health informa tion online - Detail Indication:Nonsmoker Start:19-Jun-2018 Instruction Type:Patient Education Patient Instructions Indication:Nonsmoker Start:19-Jun-2018 Instruction Type:Provider Instructions for Treatment How to access health informa tion online Indication:Nonsmoker Start:15-Nov-2017 Instruction Type:Patient Education How to access health informa tion online - Detail Indication:Nonsmoker Start:15-Nov-2017 Instruction Type:Patient Education Patient Instructions Indication:Nonsmoker Start:15-Nov-2017 Instruction Type:Provider Instructions for Treatment How to access health informa tion online Indication:Hypercholesterolemia Start:15-Nov-2016 Instruction Type:Patient Education How to access health informa tion online - Detail Indication:Hypercholesterolemia Start:15-Nov-2016 Instruction Type:Patient Education Patient Instructions Indication:BMI 33.0-33.9,adult Start:15-Nov-2016 Instruction Type:Provider Instructions for Treatment How to access health informa tion online Indication:Knee pain, right Start:04-Sep-2015 Instruction Type:Patient Education How to access health informa tion online - Detail Indication:Knee pain, right Start:04-Sep-2015 Instruction Type:Patient Education Patient Instructions Indication:Knee pain, right Start:04-Sep-2015 Instruction Type:Provider Instructions for Treatment How to access health informa tion online Indication:Physical exam for work/school/camp (Renamed from Encounter for school health examination) Start:18-Nov-2014 Instruction Type:Patient Education How to access health informa tion online - Detail Indication:Physical exam for work/school/camp (Renamed from Encounter for school health examination) Start:18-Nov-2014 Instruction Type:Patient Education Patient Instructions Indication:Physical exam for work/school/camp (Renamed from Encounter for school health examination) Start:18-Nov-2014 Instruction Type:Provider Instructions for Treatment How to access health informa tion online Indication:Sore throat Start:14-Oct-2014 Instruction Type:Patient Education How to access health informa tion online - Detail Indication:Sore throat Start:14-Oct-2014 Instruction Type:Patient Education Patient Instructions Indication:Sore throat Start:14-Oct-2014 Instruction Type:Provider Instructions for Treatment Patient Instructions Indication:Annual physical exam Start:12-Nov-2013 Instruction Type:Provider Instructions for Treatment How to access health informa tion online - Detail Indication:Annual physical exam Start:12-Nov-2013 Instruction Type:Patient Education How to access health informa tion online Indication:Annual physical exam Start:12-Nov-2013 Instruction Type:Patient Education Patient Instructions Indication:Knee pain Start:21-Jan-2013 Instruction Type:Provider Instructions for Treatment Patient Instructions Indication:Hypercholesterolemia Start:16-Nov-2012 Instruction Type:Provider Instructions for Treatment Patient Instructions Indication:Nausea Start:31-May-2012 Instruction Type:Provider Instructions for Treatment Patient Instructions Indication:Low back pain potentially associated with radiculopathy Start:03-Apr-2012 Instruction Type:Provider Instructions for Treatment [facility] Work Phone: Instructions* Name Dates Details Patient Instructions Indication:BMI 33.0-33.9,adult Start:31-Oct-2022 Instruction Type:Provider Instructions for Treatment How to Access Health Informa tion Online using Patient Portal and [employer]rd [employer] Apps Indication:BMI 33.0-33.9,adult Start:31-Oct-2022 Instruction Type:Patient Education Patient Instructions Indication:Nonsmoker Start:01-Jul-2022 Instruction Type:Provider Instructions for Treatment How to Access Health Informa tion Online using Patient Portal and [employer] Apps Indication:Nonsmoker Start:01-Jul-2022 Instruction Type:Patient Education Patient Instructions Indication:Cough Start:14-Jun-2022 Instruction Type:Provider Instructions for Treatment How to Access Health Informa tion Online using Patient Portal and [employer] Apps Indication:Cough Start:14-Jun-2022 Instruction Type:Patient Education Patient Instructions Indication:Urticaria, acute Start:28-Mar-2022 Instruction Type:Provider Instructions for Treatment How to Access Health Informa tion Online using Patient Portal and [employer] Apps Indication:Urticaria, acute Start:28-Mar-2022 Instruction Type:Patient Education Patient Instructions Indication:Nonsmoker Start:14-Dec-2021 Instruction Type:Provider Instructions for Treatment How to Access Health Informa tion Online using Patient Portal and [employer]rd [employer] Apps Indication:Nonsmoker Start:14-Dec-2021 Instruction Type:Patient Education Patient Instructions Indication:Encounter for annual general medical examination with abnormal findings in adult Start:14-Dec-2021 Instruction Type:Provider Instructions for Treatment How to Access Health Informa tion Online using Patient Portal and [employer]rd [employer] Apps Indication:Encounter for annual general medical examination with abnormal findings in adult Start:14-Dec-2021 Instruction Type:Patient Education Patient Instructions Indication:Vertigo Start:06-Apr-2021 Instruction Type:Provider Instructions for Treatment How to Access Health Informa tion Online using Patient Portal and [employer] Apps Indication:Vertigo Start:06-Apr-2021 Instruction Type:Patient Education Patient Instructions Indication:BMI 33.0-33.9,adult Start:11-Jan-2021 Instruction Type:Provider Instructions for Treatment How to Access Health Informa tion Online using Patient Portal and [employer]rd [employer] Apps Indication:BMI 33.0-33.9,adult Start:11-Jan-2021 Instruction Type:Patient Education Patient Instructions Indication:BMI 33.0-33.9,adult Start:09-Nov-2020 Instruction Type:Provider Instructions for Treatment How to Access Health Informa tion Online using Patient Portal and [employer] Apps Indication:BMI 33.0-33.9,adult Start:09-Nov-2020 Instruction Type:Patient Education Patient Instructions Indication:BMI 33.0-33.9,adult Start:27-Oct-2020 Instruction Type:Provider Instructions for Treatment How to Access Health Informa tion Online using Patient Portal and [employer] Apps Indication:BMI 33.0-33.9,adult Start:27-Oct-2020 Instruction Type:Patient Education Patient Instructions Indication:Nonsmoker Start:20-Oct-2020 Instruction Type:Provider Instructions for Treatment How to Access Health Informa tion Online using Patient Portal and [employer] Apps Indication:Nonsmoker Start:20-Oct-2020 Instruction Type:Patient Education Patient Instructions Indication:Nonsmoker Start:13-Mar-2020 Instruction Type:Provider Instructions for Treatment How to Access Health Informa tion Online using Patient Portal and [employer]rd [employer] Apps Indication:Nonsmoker Start:13-Mar-2020 Instruction Type:Patient Education How to access health informa tion online Indication:Nonsmoker Start:25-Sep-2019 Instruction Type:Patient Education How to access health informa tion online - Detail Indication:Nonsmoker Start:25-Sep-2019 Instruction Type:Patient Education Patient Instructions Indication:BMI 33.0-33.9,adult Start:25-Sep-2019 Instruction Type:Provider Instructions for Treatment How to access health informa tion online Indication:Nonsmoker Start:13-Aug-2019 Instruction Type:Patient Education How to access health informa tion online - Detail Indication:Nonsmoker Start:13-Aug-2019 Instruction Type:Patient Education Patient Instructions Indication:BMI 33.0-33.9,adult Start:13-Aug-2019 Instruction Type:Provider Instructions for Treatment How to access health informa tion online Indication:Nonsmoker Start:05-Nov-2018 Instruction Type:Patient Education How to access health informa tion online - Detail Indication:Nonsmoker Start:05-Nov-2018 Instruction Type:Patient Education Patient Instructions Indication:BMI 33.0-33.9,adult Start:05-Nov-2018 Instruction Type:Provider Instructions for Treatment How to access health informa tion online - Detail Indication:Nonsmoker Start:25-Oct-2018 Instruction Type:Patient Education Patient Instructions Indication:Tonsil stone Start:25-Oct-2018 Instruction Type:Provider Instructions for Treatment How to access health informa tion online Indication:Nonsmoker Start:19-Jun-2018 Instruction Type:Patient Education How to access health informa tion online - Detail Indication:Nonsmoker Start:19-Jun-2018 Instruction Type:Patient Education Patient Instructions Indication:Nonsmoker Start:19-Jun-2018 Instruction Type:Provider Instructions for Treatment How to access health informa tion online Indication:Nonsmoker Start:15-Nov-2017 Instruction Type:Patient Education How to access health informa tion online - Detail Indication:Nonsmoker Start:15-Nov-2017 Instruction Type:Patient Education Patient Instructions Indication:Nonsmoker Start:15-Nov-2017 Instruction Type:Provider Instructions for Treatment How to access health informa tion online Indication:Hypercholesterolemia Start:15-Nov-2016 Instruction Type:Patient Education How to access health informa tion online - Detail Indication:Hypercholesterolemia Start:15-Nov-2016 Instruction Type:Patient Education Patient Instructions Indication:BMI 33.0-33.9,adult Start:15-Nov-2016 Instruction Type:Provider Instructions for Treatment How to access health informa tion online Indication:Knee pain, right Start:04-Sep-2015 Instruction Type:Patient Education How to access health informa tion online - Detail Indication:Knee pain, right Start:04-Sep-2015 Instruction Type:Patient Education Patient Instructions Indication:Knee pain, right Start:04-Sep-2015 Instruction Type:Provider Instructions for Treatment How to access health informa tion online Indication:Physical exam for work/school/camp (Renamed from Encounter for school health examination) Start:18-Nov-2014 Instruction Type:Patient Education How to access health informa tion online - Detail Indication:Physical exam for work/school/camp (Renamed from Encounter for school health examination) Start:18-Nov-2014 Instruction Type:Patient Education Patient Instructions Indication:Physical exam for work/school/camp (Renamed from Encounter for school health examination) Start:18-Nov-2014 Instruction Type:Provider Instructions for Treatment How to access health informa tion online Indication:Sore throat Start:14-Oct-2014 Instruction Type:Patient Education How to access health informa tion online - Detail Indication:Sore throat Start:14-Oct-2014 Instruction Type:Patient Education Patient Instructions Indication:Sore throat Start:14-Oct-2014 Instruction Type:Provider Instructions for Treatment Patient Instructions Indication:Annual physical exam Start:12-Nov-2013 Instruction Type:Provider Instructions for Treatment How to access health informa tion online - Detail Indication:Annual physical exam Start:12-Nov-2013 Instruction Type:Patient Education How to access health informa tion online Indication:Annual physical exam Start:12-Nov-2013 Instruction Type:Patient Education Patient Instructions Indication:Knee pain Start:21-Jan-2013 Instruction Type:Provider Instructions for Treatment Patient Instructions Indication:Hypercholesterolemia Start:16-Nov-2012 Instruction Type:Provider Instructions for Treatment Patient Instructions Indication:Nausea Start:31-May-2012 Instruction Type:Provider Instructions for Treatment Patient Instructions Indication:Low back pain potentially associated with radiculopathy Start:03-Apr-2012 Instruction Type:Provider Instructions for Treatment [facility] Work Phone: reason for referral (narrative)No reason for referral information available[facility] Work [facility]: Family History No Family History Records FoundUnknown Family Member Name Dates Details Brother 1 Comments:PR/CAD Status:Active Brother 2 Comments:Kidney failure, PR Status:Active Family Members In General Comments:alcoholism, drug de pendency/abuse, Anxiety/Depression, Stroke, Suicide/Traumatic Status:Active Father Comments:PR, brain aneurysm Status:Active Mother Comments:Hypertension, Thyro id Disease Status:Active Sister 1 Comments:half sister: PR/CVA Status:Active Unknown Family Member Name Dates Details Brother 1 Comments:PR/CAD Status:Active Brother 2 Comments:Kidney failure, PR Status:Active Family Members In General Comments:alcoholism, drug de pendency/abuse, Anxiety/Depression, Stroke, Suicide/Traumatic Status:Active Father Comments:PR, brain aneurysm Status:Active Mother Comments:Hypertension, Thyro id Disease Status:Active Sister 1 Comments:half sister: PR/CVA Status:Active Unknown Family Member Name Dates Details Brother 1 Comments:PR/CAD Status:Active Brother 2 Comments:Kidney failure, PR Status:Active Family Members In General Comments:alcoholism, drug de pendency/abuse, Anxiety/Depression, Stroke, Suicide/Traumatic Status:Active Father Comments:PR, brain aneurysm Status:Active Mother Comments:Hypertension, Thyro id Disease Status:Active Sister 1 Comments:half sister: PR/CVA Status:Active Unknown Family Member Name Dates Details Brother 1 Comments:PR/CAD Status:Active Brother 2 Comments:Kidney failure, PR Status:Active Family Members In General Comments:alcoholism, drug de pendency/abuse, Anxiety/Depression, Stroke, Suicide/Traumatic Status:Active Father Comments:PR, brain aneurysm Status:Active Mother Comments:Hypertension, Thyro id Disease Status:Active Sister 1 Comments:half sister: PR/CVA Status:Active Unknown Family Member Name Dates Details Brother 1 Comments:PR/CAD Status:Active Brother 2 Comments:Kidney failure, PR Status:Active Family Members In General Comments:alcoholism, drug de pendency/abuse, Anxiety/Depression, Stroke, Suicide/Traumatic Status:Active Father Comments:PR, brain aneurysm Status:Active Mother Comments:Hypertension, Thyro id Disease Status:Active Sister 1 Comments:half sister: PR/CVA Status:Active Unknown Family Member Name Dates Details Brother 1 Comments:PR/CAD Status:Active Brother 2 Comments:Kidney failure, PR Status:Active Family Members In General Comments:alcoholism, drug de pendency/abuse, Anxiety/Depression, Stroke, Suicide/Traumatic Status:Active Father Comments:PR, brain aneurysm Status:Active Mother Comments:Hypertension, Thyro id Disease Status:Active Sister 1 Comments:half sister: PR/CVA Status:Active Unknown Family Member Name Dates Details Brother 1 Comments:PR/CAD Status:Active Brother 2 Comments:Kidney failure, PR Status:Active Family Members In General Comments:alcoholism, drug de pendency/abuse, Anxiety/Depression, Stroke, Suicide/Traumatic Status:Active Father Comments:PR, brain aneurysm Status:Active Mother Comments:Hypertension, Thyro id Disease Status:Active Sister 1 Comments:half sister: PR/CVA Status:Active Unknown Family Member Name Dates Details Brother 1 Comments:PR/CAD Status:Active Brother 2 Comments:Kidney failure, PR Status:Active Family Members In General Comments:alcoholism, drug de pendency/abuse, Anxiety/Depression, Stroke, Suicide/Traumatic Status:Active Father Comments:PR, brain aneurysm Status:Active Mother Comments:Hypertension, Thyro id Disease Status:Active Sister 1 Comments:half sister: PR/CVA Status:Active Unknown Family Member Name Dates Details Brother 1 Comments:PR/CAD Status:Active Brother 2 Comments:Kidney failure, PR Status:Active Family Members In General Comments:alcoholism, drug de pendency/abuse, Anxiety/Depression, Stroke, Suicide/Traumatic Status:Active Father Comments:PR, brain aneurysm Status:Active Mother Comments:Hypertension, Thyro id Disease Status:Active Sister 1 Comments:half sister: PR/CVA Status:Active Unknown Family Member Name Dates Details Brother 1 Comments:PR/CAD Status:Active Brother 2 Comments:Kidney failure, PR Status:Active Family Members In General Comments:alcoholism, drug de pendency/abuse, Anxiety/Depression, Stroke, Suicide/Traumatic Status:Active Father Comments:PR, brain aneurysm Status:Active Mother Comments:Hypertension, Thyro id Disease Status:Active Sister 1 Comments:half sister: PR/CVA Status:Active Unknown Family Member Name Dates Details Brother 1 Comments:PR/CAD Status:Active Brother 2 Comments:Kidney failure, PR Status:Active Family Members In General Comments:alcoholism, drug de pendency/abuse, Anxiety/Depression, Stroke, Suicide/Traumatic Status:Active Father Comments:PR, brain aneurysm Status:Active Mother Comments:Hypertension, Thyro id Disease Status:Active Sister 1 Comments:half sister: PR/CVA Status:Active Unknown Family Member Name Dates Details Brother 1 Comments:PR/CAD Status:Active Brother 2 Comments:Kidney failure, PR Status:Active Family Members In General Comments:alcoholism, drug de pendency/abuse, Anxiety/Depression, Stroke, Suicide/Traumatic Status:Active Father Comments:PR, brain aneurysm Status:Active Mother Comments:Hypertension, Thyro id Disease Status:Active Sister 1 Comments:half sister: PR/CVA Status:Active Unknown Family Member Name Dates Details Brother 1 Comments:PR/CAD Status:Active Brother 2 Comments:Kidney failure, PR Status:Active Family Members In General Comments:alcoholism, drug de pendency/abuse, Anxiety/Depression, Stroke, Suicide/Traumatic Status:Active Father Comments:PR, brain aneurysm Status:Active Mother Comments:Hypertension, Thyro id Disease Status:Active Sister 1 Comments:half sister: PR/CVA Status:Active Unknown Family Member Name Dates Details Brother 1 Comments:PR/CAD Status:Active Brother 2 Comments:Kidney failure, PR Status:Active Family Members In General Comments:alcoholism, drug de pendency/abuse, Anxiety/Depression, Stroke, Suicide/Traumatic Status:Active Father Comments:PR, brain aneurysm Status:Active Mother Comments:Hypertension, Thyro id Disease Status:Active Sister 1 Comments:half sister: PR/CVA Status:Active Unknown Family Member Name Dates Details Brother 1 Comments:PR/CAD Status:Active Brother 2 Comments:Kidney failure, PR Status:Active Family Members In General Comments:alcoholism, drug de pendency/abuse, Anxiety/Depression, Stroke, Suicide/Traumatic Status:Active Father Comments:PR, brain aneurysm Status:Active Mother Comments:Hypertension, Thyro id Disease Status:Active Sister 1 Comments:half sister: PR/CVA Status:Active Relationship Condition Age at Onset Recorded Date/T kei Not Specified Cardiac disease Unknown Unknown Family Member Name Dates Details Brother 1 Comments:PR/CAD Status:Active Brother 2 Comments:Kidney failure, PR Status:Active Family Members In General Comments:alcoholism, drug de pendency/abuse, Anxiety/Depression, Stroke, Suicide/Traumatic Status:Active Father Comments:PR, brain aneurysm Status:Active Mother Comments:Hypertension, Thyro id Disease Status:Active Sister 1 Comments:half sister: PR/CVA Status:Active Unknown Family Member Name Dates Details Brother 1 Comments:PR/CAD Status:Active Brother 2 Comments:Kidney failure, PR Status:Active Family Members In General Comments:alcoholism, drug de pendency/abuse, Anxiety/Depression, Stroke, Suicide/Traumatic Status:Active Father Comments:PR, brain aneurysm Status:Active Mother Comments:Hypertension, Thyro id Disease Status:Active Sister 1 Comments:half sister: PR/CVA Status:Active Unknown Family Member Name Dates Details Brother 1 Comments:PR/CAD Status:Active Brother 2 Comments:Kidney failure, PR Status:Active Family Members In General Comments:alcoholism, drug de pendency/abuse, Anxiety/Depression, Stroke, Suicide/Traumatic Status:Active Father Comments:PR, brain aneurysm Status:Active Mother Comments:Hypertension, Thyro id Disease Status:Active Sister 1 Comments:half sister: PR/CVA Status:Active Unknown Family Member Name Dates Details Brother 1 Comments:PR/CAD Status:Active Brother 2 Comments:Kidney failure, PR Status:Active Family Members In General Comments:alcoholism, drug de pendency/abuse, Anxiety/Depression, Stroke, Suicide/Traumatic Status:Active Father Comments:PR, brain aneurysm Status:Active Mother Comments:Hypertension, Thyro id Disease Status:Active Sister 1 Comments:half sister: PR/CVA Status:Active Unknown Family Member Name Dates Details Brother 1 Comments:PR/CAD Status:Active Brother 2 Comments:Kidney failure, PR Status:Active Family Members In General Comments:alcoholism, drug de pendency/abuse, Anxiety/Depression, Stroke, Suicide/Traumatic Status:Active Father Comments:PR, brain aneurysm Status:Active Mother Comments:Hypertension, Thyro id Disease Status:Active Sister 1 Comments:half sister: PR/CVA Status:Active Unknown Family Member Name Dates Details Brother 1 Comments:PR/CAD Status:Active Brother 2 Comments:Kidney failure, PR Status:Active Family Members In General Comments:alcoholism, drug de pendency/abuse, Anxiety/Depression, Stroke, Suicide/Traumatic Status:Active Father Comments:PR, brain aneurysm Status:Active Mother Comments:Hypertension, Thyro id Disease Status:Active Sister 1 Comments:half sister: PR/CVA Status:Active Unknown Family Member Name Dates Details Brother 1 Comments:PR/CAD Status:Active Brother 2 Comments:Kidney failure, PR Status:Active Family Members In General Comments:alcoholism, drug de pendency/abuse, Anxiety/Depression, Stroke, Suicide/Traumatic Status:Active Father Comments:PR, brain aneurysm Status:Active Mother Comments:Hypertension, Thyro id Disease Status:Active Sister 1 Comments:half sister: PR/CVA Status:Active Unknown Family Member Name Dates Details Brother 1 Comments:PR/CAD Status:Active Brother 2 Comments:Kidney failure, PR Status:Active Family Members In General Comments:alcoholism, drug de pendency/abuse, Anxiety/Depression, Stroke, Suicide/Traumatic Status:Active Father Comments:PR, brain aneurysm Status:Active Mother Comments:Hypertension, Thyro id Disease Status:Active Sister 1 Comments:half sister: PR/CVA Status:Active Unknown Family Member Name Dates Details Brother 1 Comments:PR/CAD Status:Active Brother 2 Comments:Kidney failure, PR Status:Active Family Members In General Comments:alcoholism, drug de pendency/abuse, Anxiety/Depression, Stroke, Suicide/Traumatic Status:Active Father Comments:PR, brain aneurysm Status:Active Mother Comments:Hypertension, Thyro id Disease Status:Active Sister 1 Comments:half sister: PR/CVA Status:Active Unknown Family Member Name Dates Details Brother 1 Comments:PR/CAD Status:Active Brother 2 Comments:Kidney failure, PR Status:Active Family Members In General Comments:alcoholism, drug de pendency/abuse, Anxiety/Depression, Stroke, Suicide/Traumatic Status:Active Father Comments:PR, brain aneurysm Status:Active Mother Comments:Hypertension, Thyro id Disease Status:Active Sister 1 Comments:half sister: PR/CVA Status:Active Unknown Family Member Name Dates Details Brother 1 Comments:PR/CAD Status:Active Brother 2 Comments:Kidney failure, PR Status:Active Family Members In General Comments:alcoholism, drug de pendency/abuse, Anxiety/Depression, Stroke, Suicide/Traumatic Status:Active Father Comments:PR, brain aneurysm Status:Active Mother Comments:Hypertension, Thyro id Disease Status:Active Sister 1 Comments:half sister: PR/CVA Status:Active Unknown Family Member Name Dates Details Brother 1 Comments:PR/CAD Status:Active Brother 2 Comments:Kidney failure, PR Status:Active Family Members In General Comments:alcoholism, drug de pendency/abuse, Anxiety/Depression, Stroke, Suicide/Traumatic Status:Active Father Comments:PR, brain aneurysm Status:Active Mother Comments:Hypertension, Thyro id Disease Status:Active Sister 1 Comments:half sister: PR/CVA Status:Active Unknown Family Member Name Dates Details Brother 1 Comments:PR/CAD Status:Active Brother 2 Comments:Kidney failure, PR Status:Active Family Members In General Comments:alcoholism, drug de pendency/abuse, Anxiety/Depression, Stroke, Suicide/Traumatic Status:Active Father Comments:PR, brain aneurysm Status:Active Mother Comments:Hypertension, Thyro id Disease Status:Active Sister 1 Comments:half sister: PR/CVA Status:Active Unknown Family Member Name Dates Details Brother 1 Comments:PR/CAD Status:Active Brother 2 Comments:Kidney failure, PR Status:Active Family Members In General Comments:alcoholism, drug de pendency/abuse, Anxiety/Depression, Stroke, Suicide/Traumatic Status:Active Father Comments:PR, brain aneurysm Status:Active Mother Comments:Hypertension, Thyro id Disease Status:Active Sister 1 Comments:half sister: PR/CVA Status:Active Unknown Family Member Name Dates Details Brother 1 Comments:PR/CAD Status:Active Brother 2 Comments:Kidney failure, PR Status:Active Family Members In General Comments:alcoholism, drug de pendency/abuse, Anxiety/Depression, Stroke, Suicide/Traumatic Status:Active Father Comments:PR, brain aneurysm Status:Active Mother Comments:Hypertension, Thyro id Disease Status:Active Sister 1 Comments:half sister: PR/CVA Status:Active Unknown Family Member Name Dates Details Brother 1 Comments:PR/CAD Status:Active Brother 2 Comments:Kidney failure, PR Status:Active Family Members In General Comments:alcoholism, drug de pendency/abuse, Anxiety/Depression, Stroke, Suicide/Traumatic Status:Active Father Comments:PR, brain aneurysm Status:Active Mother Comments:Hypertension, Thyro id Disease Status:Active Sister 1 Comments:half sister: PR/CVA Status:Active Unknown Family Member Name Dates Details Brother 1 Comments:PR/CAD Status:Active Brother 2 Comments:Kidney failure, PR Status:Active Family Members In General Comments:alcoholism, drug de pendency/abuse, Anxiety/Depression, Stroke, Suicide/Traumatic Status:Active Father Comments:PR, brain aneurysm Status:Active Mother Comments:Hypertension, Thyro id Disease Status:Active Sister 1 Comments:half sister: PR/CVA Status:Active Relationship Condition Age at Onset Recorded Date/T kei Not Specified Cardiac disease Unknown brother Kidney disorder Unknown Myocardial infarction Unknown brother Coronary artery disease Unknown mother Hypertension Unknown Disorder of thyroid Unknown father Cerebral aneurysm Unknown Instructions Name Dates Details Nonsmoker : How to access he alth information online Indication:Nonsmoker Nonsmoker : How to access he alth information online - Detail Indication:Nonsmoker Nonsmoker : Patient Instruct ions Indication:Nonsmoker Hypercholesterolemia : How t o access health information online Indication:Hypercholesterolemia Hypercholesterolemia : How t o access health information online - Detail Indication:Hypercholesterolemia BMI 33.0-33.9,adult : Patien t Instructions Indication:BMI 33.0-33.9,adult Knee pain, right : How to ac cess health information online Indication:Knee pain, right Knee pain, right : How to ac cess health information online - Detail Indication:Knee pain, right Knee pain, right : Patient I nstructions Indication:Knee pain, right Physical exam for work/schoo l/camp (Renamed from Encounter for school health examination) : How to access health information online Indication:Physical exam for work/school/camp (Renamed from Encounter for school health examination) Physical exam for work/schoo l/camp (Renamed from Encounter for school health examination) : How to access health information online - Detail Indication:Physical exam for work/school/camp (Renamed from Encounter for school health examination) Physical exam for work/schoo l/camp (Renamed from Encounter for school health examination) : Patient Instructions Indication:Physical exam for work/school/camp (Renamed from Encounter for school health examination) Sore throat : How to access health information online Indication:Sore throat Sore throat : How to access health information online - Detail Indication:Sore throat Sore throat : Patient Instru ctions Indication:Sore throat Annual physical exam : Patie nt Instructions Indication:Annual physical exam Annual physical exam : How t o access health information online - Detail Indication:Annual physical exam Annual physical exam : How t o access health information online Indication:Annual physical exam Knee pain : Patient Instruct ions Indication:Knee pain Hypercholesterolemia : Patie nt Instructions Indication:Hypercholesterolemia Nausea : Patient Instruction s Indication:Nausea Low back pain potentially as sociated with radiculopathy : Patient Instructions Indication:Low back pain potentially associated with radiculopathy Name Dates Details How to access health informa tion online Indication:Nonsmoker Start:19-Jun-2018 Instruction Type:Patient Education How to access health informa tion online - Detail Indication:Nonsmoker Start:19-Jun-2018 Instruction Type:Patient Education Patient Instructions Indication:Nonsmoker Start:19-Jun-2018 Instruction Type:Provider Instructions for Treatment How to access health informa tion online Indication:Nonsmoker Start:15-Nov-2017 Instruction Type:Patient Education How to access health informa tion online - Detail Indication:Nonsmoker Start:15-Nov-2017 Instruction Type:Patient Education Patient Instructions Indication:Nonsmoker Start:15-Nov-2017 Instruction Type:Provider Instructions for Treatment How to access health informa tion online Indication:Hypercholesterolemia Start:15-Nov-2016 Instruction Type:Patient Education How to access health informa tion online - Detail Indication:Hypercholesterolemia Start:15-Nov-2016 Instruction Type:Patient Education Patient Instructions Indication:BMI 33.0-33.9,adult Start:15-Nov-2016 Instruction Type:Provider Instructions for Treatment How to access health informa tion online Indication:Knee pain, right Start:04-Sep-2015 Instruction Type:Patient Education How to access health informa tion online - Detail Indication:Knee pain, right Start:04-Sep-2015 Instruction Type:Patient Education Patient Instructions Indication:Knee pain, right Start:04-Sep-2015 Instruction Type:Provider Instructions for Treatment How to access health informa tion online Indication:Physical exam for work/school/camp (Renamed from Encounter for school health examination) Start:18-Nov-2014 Instruction Type:Patient Education How to access health informa tion online - Detail Indication:Physical exam for work/school/camp (Renamed from Encounter for school health examination) Start:18-Nov-2014 Instruction Type:Patient Education Patient Instructions Indication:Physical exam for work/school/camp (Renamed from Encounter for school health examination) Start:18-Nov-2014 Instruction Type:Provider Instructions for Treatment How to access health informa tion online Indication:Sore throat Start:14-Oct-2014 Instruction Type:Patient Education How to access health informa tion online - Detail Indication:Sore throat Start:14-Oct-2014 Instruction Type:Patient Education Patient Instructions Indication:Sore throat Start:14-Oct-2014 Instruction Type:Provider Instructions for Treatment Patient Instructions Indication:Annual physical exam Start:12-Nov-2013 Instruction Type:Provider Instructions for Treatment How to access health informa tion online - Detail Indication:Annual physical exam Start:12-Nov-2013 Instruction Type:Patient Education How to access health informa tion online Indication:Annual physical exam Start:12-Nov-2013 Instruction Type:Patient Education Patient Instructions Indication:Knee pain Start:21-Jan-2013 Instruction Type:Provider Instructions for Treatment Patient Instructions Indication:Hypercholesterolemia Start:16-Nov-2012 Instruction Type:Provider Instructions for Treatment Patient Instructions Indication:Nausea Start:31-May-2012 Instruction Type:Provider Instructions for Treatment Patient Instructions Indication:Low back pain potentially associated with radiculopathy Start:03-Apr-2012 Instruction Type:Provider Instructions for Treatment Name Dates Details How to access health informa tion online - Detail Indication:Nonsmoker Start:25-Oct-2018 Instruction Type:Patient Education Patient Instructions Indication:Tonsil stone Start:25-Oct-2018 Instruction Type:Provider Instructions for Treatment How to access health informa tion online Indication:Nonsmoker Start:19-Jun-2018 Instruction Type:Patient Education How to access health informa tion online - Detail Indication:Nonsmoker Start:19-Jun-2018 Instruction Type:Patient Education Patient Instructions Indication:Nonsmoker Start:19-Jun-2018 Instruction Type:Provider Instructions for Treatment How to access health informa tion online Indication:Nonsmoker Start:15-Nov-2017 Instruction Type:Patient Education How to access health informa tion online - Detail Indication:Nonsmoker Start:15-Nov-2017 Instruction Type:Patient Education Patient Instructions Indication:Nonsmoker Start:15-Nov-2017 Instruction Type:Provider Instructions for Treatment How to access health informa tion online Indication:Hypercholesterolemia Start:15-Nov-2016 Instruction Type:Patient Education How to access health informa tion online - Detail Indication:Hypercholesterolemia Start:15-Nov-2016 Instruction Type:Patient Education Patient Instructions Indication:BMI 33.0-33.9,adult Start:15-Nov-2016 Instruction Type:Provider Instructions for Treatment How to access health informa tion online Indication:Knee pain, right Start:04-Sep-2015 Instruction Type:Patient Education How to access health informa tion online - Detail Indication:Knee pain, right Start:04-Sep-2015 Instruction Type:Patient Education Patient Instructions Indication:Knee pain, right Start:04-Sep-2015 Instruction Type:Provider Instructions for Treatment How to access health informa tion online Indication:Physical exam for work/school/camp (Renamed from Encounter for school health examination) Start:18-Nov-2014 Instruction Type:Patient Education How to access health informa tion online - Detail Indication:Physical exam for work/school/camp (Renamed from Encounter for school health examination) Start:18-Nov-2014 Instruction Type:Patient Education Patient Instructions Indication:Physical exam for work/school/camp (Renamed from Encounter for school health examination) Start:18-Nov-2014 Instruction Type:Provider Instructions for Treatment How to access health informa tion online Indication:Sore throat Start:14-Oct-2014 Instruction Type:Patient Education How to access health informa tion online - Detail Indication:Sore throat Start:14-Oct-2014 Instruction Type:Patient Education Patient Instructions Indication:Sore throat Start:14-Oct-2014 Instruction Type:Provider Instructions for Treatment Patient Instructions Indication:Annual physical exam Start:12-Nov-2013 Instruction Type:Provider Instructions for Treatment How to access health informa tion online - Detail Indication:Annual physical exam Start:12-Nov-2013 Instruction Type:Patient Education How to access health informa tion online Indication:Annual physical exam Start:12-Nov-2013 Instruction Type:Patient Education Patient Instructions Indication:Knee pain Start:21-Jan-2013 Instruction Type:Provider Instructions for Treatment Patient Instructions Indication:Hypercholesterolemia Start:16-Nov-2012 Instruction Type:Provider Instructions for Treatment Patient Instructions Indication:Nausea Start:31-May-2012 Instruction Type:Provider Instructions for Treatment Patient Instructions Indication:Low back pain potentially associated with radiculopathy Start:03-Apr-2012 Instruction Type:Provider Instructions for Treatment Name Dates Details How to access health informa tion online - Detail Indication:Nonsmoker Start:25-Oct-2018 Instruction Type:Patient Education Patient Instructions Indication:Tonsil stone Start:25-Oct-2018 Instruction Type:Provider Instructions for Treatment How to access health informa tion online Indication:Nonsmoker Start:19-Jun-2018 Instruction Type:Patient Education How to access health informa tion online - Detail Indication:Nonsmoker Start:19-Jun-2018 Instruction Type:Patient Education Patient Instructions Indication:Nonsmoker Start:19-Jun-2018 Instruction Type:Provider Instructions for Treatment How to access health informa tion online Indication:Nonsmoker Start:15-Nov-2017 Instruction Type:Patient Education How to access health informa tion online - Detail Indication:Nonsmoker Start:15-Nov-2017 Instruction Type:Patient Education Patient Instructions Indication:Nonsmoker Start:15-Nov-2017 Instruction Type:Provider Instructions for Treatment How to access health informa tion online Indication:Hypercholesterolemia Start:15-Nov-2016 Instruction Type:Patient Education How to access health informa tion online - Detail Indication:Hypercholesterolemia Start:15-Nov-2016 Instruction Type:Patient Education Patient Instructions Indication:BMI 33.0-33.9,adult Start:15-Nov-2016 Instruction Type:Provider Instructions for Treatment How to access health informa tion online Indication:Knee pain, right Start:04-Sep-2015 Instruction Type:Patient Education How to access health informa tion online - Detail Indication:Knee pain, right Start:04-Sep-2015 Instruction Type:Patient Education Patient Instructions Indication:Knee pain, right Start:04-Sep-2015 Instruction Type:Provider Instructions for Treatment How to access health informa tion online Indication:Physical exam for work/school/camp (Renamed from Encounter for school health examination) Start:18-Nov-2014 Instruction Type:Patient Education How to access health informa tion online - Detail Indication:Physical exam for work/school/camp (Renamed from Encounter for school health examination) Start:18-Nov-2014 Instruction Type:Patient Education Patient Instructions Indication:Physical exam for work/school/camp (Renamed from Encounter for school health examination) Start:18-Nov-2014 Instruction Type:Provider Instructions for Treatment How to access health informa tion online Indication:Sore throat Start:14-Oct-2014 Instruction Type:Patient Education How to access health informa tion online - Detail Indication:Sore throat Start:14-Oct-2014 Instruction Type:Patient Education Patient Instructions Indication:Sore throat Start:14-Oct-2014 Instruction Type:Provider Instructions for Treatment Patient Instructions Indication:Annual physical exam Start:12-Nov-2013 Instruction Type:Provider Instructions for Treatment How to access health informa tion online - Detail Indication:Annual physical exam Start:12-Nov-2013 Instruction Type:Patient Education How to access health informa tion online Indication:Annual physical exam Start:12-Nov-2013 Instruction Type:Patient Education Patient Instructions Indication:Knee pain Start:21-Jan-2013 Instruction Type:Provider Instructions for Treatment Patient Instructions Indication:Hypercholesterolemia Start:16-Nov-2012 Instruction Type:Provider Instructions for Treatment Patient Instructions Indication:Nausea Start:31-May-2012 Instruction Type:Provider Instructions for Treatment Patient Instructions Indication:Low back pain potentially associated with radiculopathy Start:03-Apr-2012 Instruction Type:Provider Instructions for Treatment Name Dates Details How to access health informa tion online Indication:Nonsmoker Start:05-Nov-2018 Instruction Type:Patient Education How to access health informa tion online - Detail Indication:Nonsmoker Start:05-Nov-2018 Instruction Type:Patient Education Patient Instructions Indication:Nonsmoker Start:05-Nov-2018 Instruction Type:Provider Instructions for Treatment How to access health informa tion online - Detail Indication:Nonsmoker Start:25-Oct-2018 Instruction Type:Patient Education Patient Instructions Indication:Tonsil stone Start:25-Oct-2018 Instruction Type:Provider Instructions for Treatment How to access health informa tion online Indication:Nonsmoker Start:19-Jun-2018 Instruction Type:Patient Education How to access health informa tion online - Detail Indication:Nonsmoker Start:19-Jun-2018 Instruction Type:Patient Education Patient Instructions Indication:Nonsmoker Start:19-Jun-2018 Instruction Type:Provider Instructions for Treatment How to access health informa tion online Indication:Nonsmoker Start:15-Nov-2017 Instruction Type:Patient Education How to access health informa tion online - Detail Indication:Nonsmoker Start:15-Nov-2017 Instruction Type:Patient Education Patient Instructions Indication:Nonsmoker Start:15-Nov-2017 Instruction Type:Provider Instructions for Treatment How to access health informa tion online Indication:Hypercholesterolemia Start:15-Nov-2016 Instruction Type:Patient Education How to access health informa tion online - Detail Indication:Hypercholesterolemia Start:15-Nov-2016 Instruction Type:Patient Education Patient Instructions Indication:BMI 33.0-33.9,adult Start:15-Nov-2016 Instruction Type:Provider Instructions for Treatment How to access health informa tion online Indication:Knee pain, right Start:04-Sep-2015 Instruction Type:Patient Education How to access health informa tion online - Detail Indication:Knee pain, right Start:04-Sep-2015 Instruction Type:Patient Education Patient Instructions Indication:Knee pain, right Start:04-Sep-2015 Instruction Type:Provider Instructions for Treatment How to access health informa tion online Indication:Physical exam for work/school/camp (Renamed from Encounter for school health examination) Start:18-Nov-2014 Instruction Type:Patient Education How to access health informa tion online - Detail Indication:Physical exam for work/school/camp (Renamed from Encounter for school health examination) Start:18-Nov-2014 Instruction Type:Patient Education Patient Instructions Indication:Physical exam for work/school/camp (Renamed from Encounter for school health examination) Start:18-Nov-2014 Instruction Type:Provider Instructions for Treatment How to access health informa tion online Indication:Sore throat Start:14-Oct-2014 Instruction Type:Patient Education How to access health informa tion online - Detail Indication:Sore throat Start:14-Oct-2014 Instruction Type:Patient Education Patient Instructions Indication:Sore throat Start:14-Oct-2014 Instruction Type:Provider Instructions for Treatment Patient Instructions Indication:Annual physical exam Start:12-Nov-2013 Instruction Type:Provider Instructions for Treatment How to access health informa tion online - Detail Indication:Annual physical exam Start:12-Nov-2013 Instruction Type:Patient Education How to access health informa tion online Indication:Annual physical exam Start:12-Nov-2013 Instruction Type:Patient Education Patient Instructions Indication:Knee pain Start:21-Jan-2013 Instruction Type:Provider Instructions for Treatment Patient Instructions Indication:Hypercholesterolemia Start:16-Nov-2012 Instruction Type:Provider Instructions for Treatment Patient Instructions Indication:Nausea Start:31-May-2012 Instruction Type:Provider Instructions for Treatment Patient Instructions Indication:Low back pain potentially associated with radiculopathy Start:03-Apr-2012 Instruction Type:Provider Instructions for Treatment Name Dates Details How to access health informa tion online Indication:Nonsmoker Start:05-Nov-2018 Instruction Type:Patient Education How to access health informa tion online - Detail Indication:Nonsmoker Start:05-Nov-2018 Instruction Type:Patient Education Patient Instructions Indication:BMI 33.0-33.9,adult Start:05-Nov-2018 Instruction Type:Provider Instructions for Treatment How to access health informa tion online - Detail Indication:Nonsmoker Start:25-Oct-2018 Instruction Type:Patient Education Patient Instructions Indication:Tonsil stone Start:25-Oct-2018 Instruction Type:Provider Instructions for Treatment How to access health informa tion online Indication:Nonsmoker Start:19-Jun-2018 Instruction Type:Patient Education How to access health informa tion online - Detail Indication:Nonsmoker Start:19-Jun-2018 Instruction Type:Patient Education Patient Instructions Indication:Nonsmoker Start:19-Jun-2018 Instruction Type:Provider Instructions for Treatment How to access health informa tion online Indication:Nonsmoker Start:15-Nov-2017 Instruction Type:Patient Education How to access health informa tion online - Detail Indication:Nonsmoker Start:15-Nov-2017 Instruction Type:Patient Education Patient Instructions Indication:Nonsmoker Start:15-Nov-2017 Instruction Type:Provider Instructions for Treatment How to access health informa tion online Indication:Hypercholesterolemia Start:15-Nov-2016 Instruction Type:Patient Education How to access health informa tion online - Detail Indication:Hypercholesterolemia Start:15-Nov-2016 Instruction Type:Patient Education Patient Instructions Indication:BMI 33.0-33.9,adult Start:15-Nov-2016 Instruction Type:Provider Instructions for Treatment How to access health informa tion online Indication:Knee pain, right Start:04-Sep-2015 Instruction Type:Patient Education How to access health informa tion online - Detail Indication:Knee pain, right Start:04-Sep-2015 Instruction Type:Patient Education Patient Instructions Indication:Knee pain, right Start:04-Sep-2015 Instruction Type:Provider Instructions for Treatment How to access health informa tion online Indication:Physical exam for work/school/camp (Renamed from Encounter for school health examination) Start:18-Nov-2014 Instruction Type:Patient Education How to access health informa tion online - Detail Indication:Physical exam for work/school/camp (Renamed from Encounter for school health examination) Start:18-Nov-2014 Instruction Type:Patient Education Patient Instructions Indication:Physical exam for work/school/camp (Renamed from Encounter for school health examination) Start:18-Nov-2014 Instruction Type:Provider Instructions for Treatment How to access health informa tion online Indication:Sore throat Start:14-Oct-2014 Instruction Type:Patient Education How to access health informa tion online - Detail Indication:Sore throat Start:14-Oct-2014 Instruction Type:Patient Education Patient Instructions Indication:Sore throat Start:14-Oct-2014 Instruction Type:Provider Instructions for Treatment Patient Instructions Indication:Annual physical exam Start:12-Nov-2013 Instruction Type:Provider Instructions for Treatment How to access health informa tion online - Detail Indication:Annual physical exam Start:12-Nov-2013 Instruction Type:Patient Education How to access health informa tion online Indication:Annual physical exam Start:12-Nov-2013 Instruction Type:Patient Education Patient Instructions Indication:Knee pain Start:21-Jan-2013 Instruction Type:Provider Instructions for Treatment Patient Instructions Indication:Hypercholesterolemia Start:16-Nov-2012 Instruction Type:Provider Instructions for Treatment Patient Instructions Indication:Nausea Start:31-May-2012 Instruction Type:Provider Instructions for Treatment Patient Instructions Indication:Low back pain potentially associated with radiculopathy Start:03-Apr-2012 Instruction Type:Provider Instructions for Treatment Name Dates Details How to access health informa tion online Indication:Nonsmoker Start:05-Nov-2018 Instruction Type:Patient Education How to access health informa tion online - Detail Indication:Nonsmoker Start:05-Nov-2018 Instruction Type:Patient Education Patient Instructions Indication:BMI 33.0-33.9,adult Start:05-Nov-2018 Instruction Type:Provider Instructions for Treatment How to access health informa tion online - Detail Indication:Nonsmoker Start:25-Oct-2018 Instruction Type:Patient Education Patient Instructions Indication:Tonsil stone Start:25-Oct-2018 Instruction Type:Provider Instructions for Treatment How to access health informa tion online Indication:Nonsmoker Start:19-Jun-2018 Instruction Type:Patient Education How to access health informa tion online - Detail Indication:Nonsmoker Start:19-Jun-2018 Instruction Type:Patient Education Patient Instructions Indication:Nonsmoker Start:19-Jun-2018 Instruction Type:Provider Instructions for Treatment How to access health informa tion online Indication:Nonsmoker Start:15-Nov-2017 Instruction Type:Patient Education How to access health informa tion online - Detail Indication:Nonsmoker Start:15-Nov-2017 Instruction Type:Patient Education Patient Instructions Indication:Nonsmoker Start:15-Nov-2017 Instruction Type:Provider Instructions for Treatment How to access health informa tion online Indication:Hypercholesterolemia Start:15-Nov-2016 Instruction Type:Patient Education How to access health informa tion online - Detail Indication:Hypercholesterolemia Start:15-Nov-2016 Instruction Type:Patient Education Patient Instructions Indication:BMI 33.0-33.9,adult Start:15-Nov-2016 Instruction Type:Provider Instructions for Treatment How to access health informa tion online Indication:Knee pain, right Start:04-Sep-2015 Instruction Type:Patient Education How to access health informa tion online - Detail Indication:Knee pain, right Start:04-Sep-2015 Instruction Type:Patient Education Patient Instructions Indication:Knee pain, right Start:04-Sep-2015 Instruction Type:Provider Instructions for Treatment How to access health informa tion online Indication:Physical exam for work/school/camp (Renamed from Encounter for school health examination) Start:18-Nov-2014 Instruction Type:Patient Education How to access health informa tion online - Detail Indication:Physical exam for work/school/camp (Renamed from Encounter for school health examination) Start:18-Nov-2014 Instruction Type:Patient Education Patient Instructions Indication:Physical exam for work/school/camp (Renamed from Encounter for school health examination) Start:18-Nov-2014 Instruction Type:Provider Instructions for Treatment How to access health informa tion online Indication:Sore throat Start:14-Oct-2014 Instruction Type:Patient Education How to access health informa tion online - Detail Indication:Sore throat Start:14-Oct-2014 Instruction Type:Patient Education Patient Instructions Indication:Sore throat Start:14-Oct-2014 Instruction Type:Provider Instructions for Treatment Patient Instructions Indication:Annual physical exam Start:12-Nov-2013 Instruction Type:Provider Instructions for Treatment How to access health informa tion online - Detail Indication:Annual physical exam Start:12-Nov-2013 Instruction Type:Patient Education How to access health informa tion online Indication:Annual physical exam Start:12-Nov-2013 Instruction Type:Patient Education Patient Instructions Indication:Knee pain Start:21-Jan-2013 Instruction Type:Provider Instructions for Treatment Patient Instructions Indication:Hypercholesterolemia Start:16-Nov-2012 Instruction Type:Provider Instructions for Treatment Patient Instructions Indication:Nausea Start:31-May-2012 Instruction Type:Provider Instructions for Treatment Patient Instructions Indication:Low back pain potentially associated with radiculopathy Start:03-Apr-2012 Instruction Type:Provider Instructions for Treatment Name Dates Details How to access health informa tion online Indication:Nonsmoker Start:13-Aug-2019 Instruction Type:Patient Education How to access health informa tion online - Detail Indication:Nonsmoker Start:13-Aug-2019 Instruction Type:Patient Education Patient Instructions Indication:BMI 33.0-33.9,adult Start:13-Aug-2019 Instruction Type:Provider Instructions for Treatment How to access health informa tion online Indication:Nonsmoker Start:05-Nov-2018 Instruction Type:Patient Education How to access health informa tion online - Detail Indication:Nonsmoker Start:05-Nov-2018 Instruction Type:Patient Education Patient Instructions Indication:BMI 33.0-33.9,adult Start:05-Nov-2018 Instruction Type:Provider Instructions for Treatment How to access health informa tion online - Detail Indication:Nonsmoker Start:25-Oct-2018 Instruction Type:Patient Education Patient Instructions Indication:Tonsil stone Start:25-Oct-2018 Instruction Type:Provider Instructions for Treatment How to access health informa tion online Indication:Nonsmoker Start:19-Jun-2018 Instruction Type:Patient Education How to access health informa tion online - Detail Indication:Nonsmoker Start:19-Jun-2018 Instruction Type:Patient Education Patient Instructions Indication:Nonsmoker Start:19-Jun-2018 Instruction Type:Provider Instructions for Treatment How to access health informa tion online Indication:Nonsmoker Start:15-Nov-2017 Instruction Type:Patient Education How to access health informa tion online - Detail Indication:Nonsmoker Start:15-Nov-2017 Instruction Type:Patient Education Patient Instructions Indication:Nonsmoker Start:15-Nov-2017 Instruction Type:Provider Instructions for Treatment How to access health informa tion online Indication:Hypercholesterolemia Start:15-Nov-2016 Instruction Type:Patient Education How to access health informa tion online - Detail Indication:Hypercholesterolemia Start:15-Nov-2016 Instruction Type:Patient Education Patient Instructions Indication:BMI 33.0-33.9,adult Start:15-Nov-2016 Instruction Type:Provider Instructions for Treatment How to access health informa tion online Indication:Knee pain, right Start:04-Sep-2015 Instruction Type:Patient Education How to access health informa tion online - Detail Indication:Knee pain, right Start:04-Sep-2015 Instruction Type:Patient Education Patient Instructions Indication:Knee pain, right Start:04-Sep-2015 Instruction Type:Provider Instructions for Treatment How to access health informa tion online Indication:Physical exam for work/school/camp (Renamed from Encounter for school health examination) Start:18-Nov-2014 Instruction Type:Patient Education How to access health informa tion online - Detail Indication:Physical exam for work/school/camp (Renamed from Encounter for school health examination) Start:18-Nov-2014 Instruction Type:Patient Education Patient Instructions Indication:Physical exam for work/school/camp (Renamed from Encounter for school health examination) Start:18-Nov-2014 Instruction Type:Provider Instructions for Treatment How to access health informa tion online Indication:Sore throat Start:14-Oct-2014 Instruction Type:Patient Education How to access health informa tion online - Detail Indication:Sore throat Start:14-Oct-2014 Instruction Type:Patient Education Patient Instructions Indication:Sore throat Start:14-Oct-2014 Instruction Type:Provider Instructions for Treatment Patient Instructions Indication:Annual physical exam Start:12-Nov-2013 Instruction Type:Provider Instructions for Treatment How to access health informa tion online - Detail Indication:Annual physical exam Start:12-Nov-2013 Instruction Type:Patient Education How to access health informa tion online Indication:Annual physical exam Start:12-Nov-2013 Instruction Type:Patient Education Patient Instructions Indication:Knee pain Start:21-Jan-2013 Instruction Type:Provider Instructions for Treatment Patient Instructions Indication:Hypercholesterolemia Start:16-Nov-2012 Instruction Type:Provider Instructions for Treatment Patient Instructions Indication:Nausea Start:31-May-2012 Instruction Type:Provider Instructions for Treatment Patient Instructions Indication:Low back pain potentially associated with radiculopathy Start:03-Apr-2012 Instruction Type:Provider Instructions for Treatment Name Dates Details How to access health informa tion online Indication:Nonsmoker Start:25-Sep-2019 Instruction Type:Patient Education How to access health informa tion online - Detail Indication:Nonsmoker Start:25-Sep-2019 Instruction Type:Patient Education Patient Instructions Indication:BMI 33.0-33.9,adult Start:25-Sep-2019 Instruction Type:Provider Instructions for Treatment How to access health informa tion online Indication:Nonsmoker Start:13-Aug-2019 Instruction Type:Patient Education How to access health informa tion online - Detail Indication:Nonsmoker Start:13-Aug-2019 Instruction Type:Patient Education Patient Instructions Indication:BMI 33.0-33.9,adult Start:13-Aug-2019 Instruction Type:Provider Instructions for Treatment How to access health informa tion online Indication:Nonsmoker Start:05-Nov-2018 Instruction Type:Patient Education How to access health informa tion online - Detail Indication:Nonsmoker Start:05-Nov-2018 Instruction Type:Patient Education Patient Instructions Indication:BMI 33.0-33.9,adult Start:05-Nov-2018 Instruction Type:Provider Instructions for Treatment How to access health informa tion online - Detail Indication:Nonsmoker Start:25-Oct-2018 Instruction Type:Patient Education Patient Instructions Indication:Tonsil stone Start:25-Oct-2018 Instruction Type:Provider Instructions for Treatment How to access health informa tion online Indication:Nonsmoker Start:19-Jun-2018 Instruction Type:Patient Education How to access health informa tion online - Detail Indication:Nonsmoker Start:19-Jun-2018 Instruction Type:Patient Education Patient Instructions Indication:Nonsmoker Start:19-Jun-2018 Instruction Type:Provider Instructions for Treatment How to access health informa tion online Indication:Nonsmoker Start:15-Nov-2017 Instruction Type:Patient Education How to access health informa tion online - Detail Indication:Nonsmoker Start:15-Nov-2017 Instruction Type:Patient Education Patient Instructions Indication:Nonsmoker Start:15-Nov-2017 Instruction Type:Provider Instructions for Treatment How to access health informa tion online Indication:Hypercholesterolemia Start:15-Nov-2016 Instruction Type:Patient Education How to access health informa tion online - Detail Indication:Hypercholesterolemia Start:15-Nov-2016 Instruction Type:Patient Education Patient Instructions Indication:BMI 33.0-33.9,adult Start:15-Nov-2016 Instruction Type:Provider Instructions for Treatment How to access health informa tion online Indication:Knee pain, right Start:04-Sep-2015 Instruction Type:Patient Education How to access health informa tion online - Detail Indication:Knee pain, right Start:04-Sep-2015 Instruction Type:Patient Education Patient Instructions Indication:Knee pain, right Start:04-Sep-2015 Instruction Type:Provider Instructions for Treatment How to access health informa tion online Indication:Physical exam for work/school/camp (Renamed from Encounter for school health examination) Start:18-Nov-2014 Instruction Type:Patient Education How to access health informa tion online - Detail Indication:Physical exam for work/school/camp (Renamed from Encounter for school health examination) Start:18-Nov-2014 Instruction Type:Patient Education Patient Instructions Indication:Physical exam for work/school/camp (Renamed from Encounter for school health examination) Start:18-Nov-2014 Instruction Type:Provider Instructions for Treatment How to access health informa tion online Indication:Sore throat Start:14-Oct-2014 Instruction Type:Patient Education How to access health informa tion online - Detail Indication:Sore throat Start:14-Oct-2014 Instruction Type:Patient Education Patient Instructions Indication:Sore throat Start:14-Oct-2014 Instruction Type:Provider Instructions for Treatment Patient Instructions Indication:Annual physical exam Start:12-Nov-2013 Instruction Type:Provider Instructions for Treatment How to access health informa tion online - Detail Indication:Annual physical exam Start:12-Nov-2013 Instruction Type:Patient Education How to access health informa tion online Indication:Annual physical exam Start:12-Nov-2013 Instruction Type:Patient Education Patient Instructions Indication:Knee pain Start:21-Jan-2013 Instruction Type:Provider Instructions for Treatment Patient Instructions Indication:Hypercholesterolemia Start:16-Nov-2012 Instruction Type:Provider Instructions for Treatment Patient Instructions Indication:Nausea Start:31-May-2012 Instruction Type:Provider Instructions for Treatment Patient Instructions Indication:Low back pain potentially associated with radiculopathy Start:03-Apr-2012 Instruction Type:Provider Instructions for Treatment Name Dates Details How to access health informa tion online Indication:Nonsmoker Start:19-Jun-2018 Instruction Type:Patient Education How to access health informa tion online - Detail Indication:Nonsmoker Start:19-Jun-2018 Instruction Type:Patient Education Patient Instructions Indication:Nonsmoker Start:19-Jun-2018 Instruction Type:Provider Instructions for Treatment How to access health informa tion online Indication:Nonsmoker Start:15-Nov-2017 Instruction Type:Patient Education How to access health informa tion online - Detail Indication:Nonsmoker Start:15-Nov-2017 Instruction Type:Patient Education Patient Instructions Indication:Nonsmoker Start:15-Nov-2017 Instruction Type:Provider Instructions for Treatment How to access health informa tion online Indication:Hypercholesterolemia Start:15-Nov-2016 Instruction Type:Patient Education How to access health informa tion online - Detail Indication:Hypercholesterolemia Start:15-Nov-2016 Instruction Type:Patient Education Patient Instructions Indication:BMI 33.0-33.9,adult Start:15-Nov-2016 Instruction Type:Provider Instructions for Treatment How to access health informa tion online Indication:Knee pain, right Start:04-Sep-2015 Instruction Type:Patient Education How to access health informa tion online - Detail Indication:Knee pain, right Start:04-Sep-2015 Instruction Type:Patient Education Patient Instructions Indication:Knee pain, right Start:04-Sep-2015 Instruction Type:Provider Instructions for Treatment How to access health informa tion online Indication:Physical exam for work/school/camp (Renamed from Encounter for school health examination) Start:18-Nov-2014 Instruction Type:Patient Education How to access health informa tion online - Detail Indication:Physical exam for work/school/camp (Renamed from Encounter for school health examination) Start:18-Nov-2014 Instruction Type:Patient Education Patient Instructions Indication:Physical exam for work/school/camp (Renamed from Encounter for school health examination) Start:18-Nov-2014 Instruction Type:Provider Instructions for Treatment How to access health informa tion online Indication:Sore throat Start:14-Oct-2014 Instruction Type:Patient Education How to access health informa tion online - Detail Indication:Sore throat Start:14-Oct-2014 Instruction Type:Patient Education Patient Instructions Indication:Sore throat Start:14-Oct-2014 Instruction Type:Provider Instructions for Treatment Patient Instructions Indication:Annual physical exam Start:12-Nov-2013 Instruction Type:Provider Instructions for Treatment How to access health informa tion online - Detail Indication:Annual physical exam Start:12-Nov-2013 Instruction Type:Patient Education How to access health informa tion online Indication:Annual physical exam Start:12-Nov-2013 Instruction Type:Patient Education Patient Instructions Indication:Knee pain Start:21-Jan-2013 Instruction Type:Provider Instructions for Treatment Patient Instructions Indication:Hypercholesterolemia Start:16-Nov-2012 Instruction Type:Provider Instructions for Treatment Patient Instructions Indication:Nausea Start:31-May-2012 Instruction Type:Provider Instructions for Treatment Patient Instructions Indication:Low back pain potentially associated with radiculopathy Start:03-Apr-2012 Instruction Type:Provider Instructions for Treatment Name Dates Details Patient Instructions Indication:Nonsmoker Start:13-Mar-2020 Instruction Type:Provider Instructions for Treatment How to Access Health Informa tion Online using Patient Portal and [employer] Apps Indication:Nonsmoker Start:13-Mar-2020 Instruction Type:Patient Education How to access health informa tion online Indication:Nonsmoker Start:25-Sep-2019 Instruction Type:Patient Education How to access health informa tion online - Detail Indication:Nonsmoker Start:25-Sep-2019 Instruction Type:Patient Education Patient Instructions Indication:BMI 33.0-33.9,adult Start:25-Sep-2019 Instruction Type:Provider Instructions for Treatment How to access health informa tion online Indication:Nonsmoker Start:13-Aug-2019 Instruction Type:Patient Education How to access health informa tion online - Detail Indication:Nonsmoker Start:13-Aug-2019 Instruction Type:Patient Education Patient Instructions Indication:BMI 33.0-33.9,adult Start:13-Aug-2019 Instruction Type:Provider Instructions for Treatment How to access health informa tion online Indication:Nonsmoker Start:05-Nov-2018 Instruction Type:Patient Education How to access health informa tion online - Detail Indication:Nonsmoker Start:05-Nov-2018 Instruction Type:Patient Education Patient Instructions Indication:BMI 33.0-33.9,adult Start:05-Nov-2018 Instruction Type:Provider Instructions for Treatment How to access health informa tion online - Detail Indication:Nonsmoker Start:25-Oct-2018 Instruction Type:Patient Education Patient Instructions Indication:Tonsil stone Start:25-Oct-2018 Instruction Type:Provider Instructions for Treatment How to access health informa tion online Indication:Nonsmoker Start:19-Jun-2018 Instruction Type:Patient Education How to access health informa tion online - Detail Indication:Nonsmoker Start:19-Jun-2018 Instruction Type:Patient Education Patient Instructions Indication:Nonsmoker Start:19-Jun-2018 Instruction Type:Provider Instructions for Treatment How to access health informa tion online Indication:Nonsmoker Start:15-Nov-2017 Instruction Type:Patient Education How to access health informa tion online - Detail Indication:Nonsmoker Start:15-Nov-2017 Instruction Type:Patient Education Patient Instructions Indication:Nonsmoker Start:15-Nov-2017 Instruction Type:Provider Instructions for Treatment How to access health informa tion online Indication:Hypercholesterolemia Start:15-Nov-2016 Instruction Type:Patient Education How to access health informa tion online - Detail Indication:Hypercholesterolemia Start:15-Nov-2016 Instruction Type:Patient Education Patient Instructions Indication:BMI 33.0-33.9,adult Start:15-Nov-2016 Instruction Type:Provider Instructions for Treatment How to access health informa tion online Indication:Knee pain, right Start:04-Sep-2015 Instruction Type:Patient Education How to access health informa tion online - Detail Indication:Knee pain, right Start:04-Sep-2015 Instruction Type:Patient Education Patient Instructions Indication:Knee pain, right Start:04-Sep-2015 Instruction Type:Provider Instructions for Treatment How to access health informa tion online Indication:Physical exam for work/school/camp (Renamed from Encounter for school health examination) Start:18-Nov-2014 Instruction Type:Patient Education How to access health informa tion online - Detail Indication:Physical exam for work/school/camp (Renamed from Encounter for school health examination) Start:18-Nov-2014 Instruction Type:Patient Education Patient Instructions Indication:Physical exam for work/school/camp (Renamed from Encounter for school health examination) Start:18-Nov-2014 Instruction Type:Provider Instructions for Treatment How to access health informa tion online Indication:Sore throat Start:14-Oct-2014 Instruction Type:Patient Education How to access health informa tion online - Detail Indication:Sore throat Start:14-Oct-2014 Instruction Type:Patient Education Patient Instructions Indication:Sore throat Start:14-Oct-2014 Instruction Type:Provider Instructions for Treatment Patient Instructions Indication:Annual physical exam Start:12-Nov-2013 Instruction Type:Provider Instructions for Treatment How to access health informa tion online - Detail Indication:Annual physical exam Start:12-Nov-2013 Instruction Type:Patient Education How to access health informa tion online Indication:Annual physical exam Start:12-Nov-2013 Instruction Type:Patient Education Patient Instructions Indication:Knee pain Start:21-Jan-2013 Instruction Type:Provider Instructions for Treatment Patient Instructions Indication:Hypercholesterolemia Start:16-Nov-2012 Instruction Type:Provider Instructions for Treatment Patient Instructions Indication:Nausea Start:31-May-2012 Instruction Type:Provider Instructions for Treatment Patient Instructions Indication:Low back pain potentially associated with radiculopathy Start:03-Apr-2012 Instruction Type:Provider Instructions for Treatment Name Dates Details How to access health informa tion online Indication:Nonsmoker Start:19-Jun-2018 Instruction Type:Patient Education How to access health informa tion online - Detail Indication:Nonsmoker Start:19-Jun-2018 Instruction Type:Patient Education Patient Instructions Indication:Nonsmoker Start:19-Jun-2018 Instruction Type:Provider Instructions for Treatment How to access health informa tion online Indication:Nonsmoker Start:15-Nov-2017 Instruction Type:Patient Education How to access health informa tion online - Detail Indication:Nonsmoker Start:15-Nov-2017 Instruction Type:Patient Education Patient Instructions Indication:Nonsmoker Start:15-Nov-2017 Instruction Type:Provider Instructions for Treatment How to access health informa tion online Indication:Hypercholesterolemia Start:15-Nov-2016 Instruction Type:Patient Education How to access health informa tion online - Detail Indication:Hypercholesterolemia Start:15-Nov-2016 Instruction Type:Patient Education Patient Instructions Indication:BMI 33.0-33.9,adult Start:15-Nov-2016 Instruction Type:Provider Instructions for Treatment How to access health informa tion online Indication:Knee pain, right Start:04-Sep-2015 Instruction Type:Patient Education How to access health informa tion online - Detail Indication:Knee pain, right Start:04-Sep-2015 Instruction Type:Patient Education Patient Instructions Indication:Knee pain, right Start:04-Sep-2015 Instruction Type:Provider Instructions for Treatment How to access health informa tion online Indication:Physical exam for work/school/camp (Renamed from Encounter for school health examination) Start:18-Nov-2014 Instruction Type:Patient Education How to access health informa tion online - Detail Indication:Physical exam for work/school/camp (Renamed from Encounter for school health examination) Start:18-Nov-2014 Instruction Type:Patient Education Patient Instructions Indication:Physical exam for work/school/camp (Renamed from Encounter for school health examination) Start:18-Nov-2014 Instruction Type:Provider Instructions for Treatment How to access health informa tion online Indication:Sore throat Start:14-Oct-2014 Instruction Type:Patient Education How to access health informa tion online - Detail Indication:Sore throat Start:14-Oct-2014 Instruction Type:Patient Education Patient Instructions Indication:Sore throat Start:14-Oct-2014 Instruction Type:Provider Instructions for Treatment Patient Instructions Indication:Annual physical exam Start:12-Nov-2013 Instruction Type:Provider Instructions for Treatment How to access health informa tion online - Detail Indication:Annual physical exam Start:12-Nov-2013 Instruction Type:Patient Education How to access health informa tion online Indication:Annual physical exam Start:12-Nov-2013 Instruction Type:Patient Education Patient Instructions Indication:Knee pain Start:21-Jan-2013 Instruction Type:Provider Instructions for Treatment Patient Instructions Indication:Hypercholesterolemia Start:16-Nov-2012 Instruction Type:Provider Instructions for Treatment Patient Instructions Indication:Nausea Start:31-May-2012 Instruction Type:Provider Instructions for Treatment Patient Instructions Indication:Low back pain potentially associated with radiculopathy Start:03-Apr-2012 Instruction Type:Provider Instructions for Treatment Chief Complaint and Reason for Visit Chief Complaint VERTIGO/ RX HERE Chief Complaint VERTIGO/ RX HERE left knee Chief Complaint GASTRO REFLUX DISEAS E Chief Complaint GASTRO REFLUX DISEAS E BURN Chief Complaint GASTRO REFLUX DISEAS E BURN [employer]OY[employer]S SCREENING 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 Other abnormal and inconclusive findings on diagno Chief Complaint URINE SAMPLE ONLY Chief Complaint URINE SAMPLE ONLY TSA Reason for Visit Status post revision of total replacement of right knee Chief Complaint Admit Date LEFT SHOULDER March 04, 2024 2 :43pm LEFT SHOULDER PAIN March 11, 2024 1 1:57am LEFT SHOULDER March 14, 2024 3 :11pm OCCIPITAL STROKE April 01, 2024 3:23pm OCCIPITAL STROKE April 02, 2024 10:07am Dizziness/Giddiness/Lightheaded (Self) [facility] 2024 3:24pm Reason for Visit Admit Date Left shoulder pain March 04, 2024 2 :43pm Primary osteoarthritis, left shoulder [facility] 2024 2:43pm Left shoulder pain March 14, 2024 3 :11pm Primary osteoarthritis, left shoulder [facility] 2024 3:11pm NOAH (acute kidney injury) April 01, 2024 3:23pm Vertigo April 01, 2024 3:23pm Occipital stroke April 01, 2024 3:23pm Dyslipidemia April 26, 2024 3:24 pm Hypertension April 26, 2024 3:24 pm Syncope April 26, 2024 3:24 pm Chief Complaint Admit Date LEFT SHOULDER PAIN March 11, 2024 1 1:57am LEFT SHOULDER March 14, 2024 3 :11pm OCCIPITAL STROKE April 01, 2024 3:23pm OCCIPITAL STROKE April 02, 2024 10:07am Dizziness/Giddiness/Lightheaded (Self) [facility] 2024 3:24pm Reason for Visit Admit Date Left shoulder pain March 14, 2024 3 :11pm Primary osteoarthritis, left shoulder [facility] 2024 3:11pm NOAH (acute kidney injury) April 01, 2024 3:23pm Vertigo April 01, 2024 3:23pm Occipital stroke April 01, 2024 3:23pm Dyslipidemia April 26, 2024 3:24 pm Hypertension April 26, 2024 3:24 pm Syncope April 26, 2024 3:24 pm Advance Directives No Advanced Directives Records Found Advance Directive Response Recorded Date/ Time Advance Directives No October 1:51pm Living Will Yes November 04, 2018 9:31am Power of Floor Representative Yes October 9:31am Advance Directive Response Recorded Date/ Time Advance Directives No October 1:51pm Living Will Yes July 22, 2021 8 :48am Power of Floor Representative Yes July 22, 2021 8:48am Advance Directive Response Recorded Date/ Time Advance Directives No October 1:51pm Living Will No October 25 10:06am Power of Floor Representative No October 25, 2022 10:06am Advance Directive Response Recorded Date/ Time Advance Directives No October 12:51pm Living Will No October 25 9:06am Power of Floor Representative No October 25, 2022 9:06am Advance Directive Response Recorded Date/ Time Advance Directives No October 1:51pm Living Will Yes May 31, 2023 11:23am Power of Floor Representative Yes May 30 11:23am Advance Directive Response Recorded Date/ Time Advance Directives No October 1:51pm Living Will Yes June 14, 2023 4:06pm Power of Floor Representative Yes June 13 4:06pm Name of Medical Power of Floor Representative JEF ILGHT June 14, 2023 4:06pm Advance Directive Response Recorded Date/ Time Living Will Yes April 01, 2 025 8:27pm Do you have a Healthcare Power of Floor Representative? Yes April 01, 2024 8:27pm Name of Medical Power of Floor Representative Benny Light April 01, 2024 8:27pm Advance Directives No October 1:51pm Summary Purpose Additional Source Comments Goals (unrecognized section and content) Goals may be documented in a n alternate sectionGoals may be documented in an alternate sectionGoals may be documented in an alternate sectionGoals may be documented in an alternate sectionGoals may be documented in an alternate sectionGoals may be documented in an alternate sectionGoals may be documented in an alternate sectionGoals may be documented in an alternate section INFORMATION SOURCE (unrecogn ized section and content) DATE CREATED AUTHOR 07/03/2022 Comprehensive In [facility] DATE CREATED AUTHOR AUTHOR'S JV ATION [facility] (unrecognized sec tion and content) Team Status: Active Member Role Status Dates Leatha Morrison NP, ELECTRICAL PROSPECTOR-C Family Provider Active Mayra Escobedo ELECTRICAL PROSPECTOR-C Primary Care Provider Active Team Status: Inactive Member Role Status Dates Mayra Escobedo NP-C Primary Care Provi parker, Attending Provider, Referring Provider Active Team Status: Inactive Member Role Status Dates Mayra Escobedo NP-C Primary Care Provider Active Dr. Eduin Caro MD Attending Provider, Referring P rovider Active Team Status: Inactive Member Role Status Dates Mayra Escobedo NP-C Primary Care Provider Active Dr. Kit Still MD Emergency Provider Active Team Status: Inactive Member Role Status Dates Mayra Escobedo ELECTRICAL PROSPECTOR-C Primary Care Provider Active Dr. Kit Still MD Attending Provider, Emergency Provi parker Active Team Status: Active Member Role Status Dates Mayra Escobedo NP-C Primary Care Provider Active Health Risk Assessment Attending Provider, Referring P rovider Active Team Status: Active Member Role Status Dates Mayra Escobedo NP-Nena Primary Care Provi parker, Attending Provider, Referring Provider Active Team Status: Inactive Member Role Status Dates Mayra Escobedo NP-C Primary Care Provider Active Dr. Brennon Ramirez MD Admit Provider, A ttending Provider, Referring Provider Active Team Status: Active Member Role Status Dates Mayra Escobedo NP-C Primary Care Provider Active Team Status: Inactive Member Role Status Dates Mayra Escobedo NP-C Primary Care Provider Active Start: March 04, 2024 End: March 04, 2024 Mayra Escobedo NP-Nena Referring Provider Active Start: March 04, 2024 End: March 04, 2024 Chapo Yates MD Attending Provider Active St art: March 04, 2024 End: March 04, 2024 Team Status: Inactive Member Role Status Dates Mayra Escobedo NP-C Primary Care Provider Active Start: March 11, 2024 End: March 11, 2024 Chapo Yates MD Attending Provider Active St art: March 11, 2024 End: March 11, 2024 Chapo Yates MD Referring Provider Active St art: March 11, 2024 End: March 11, 2024 Team Status: Inactive Member Role Status Dates REBECCA Wallace Primary Care Provider Active Start: March 14, 2024 End: March 14, 2024 REBECCA Wallace Referring Provider Active Start: March 14, 2024 End: March 14, 2024 Chapo Yates MD Attending Provider Active St art: March 14, 2024 End: March 14, 2024 Team Status: Inactive Member Role Status Dates REBECCA Wallace Primary Care Provider Active Start: April 01, 2024 End: April 02, 2024 Dr. Meagan Norman MD Emergency Provider Active Start: April 01, 2024 End: April 02, 2024 Dr. Chelsea Kaufman DO Admit Provider Active Start : April 01, 2024 End: April 02, 2024 Dr. Chelsea Kaufman DO Other Provider Active Start : April 01, 2024 End: April 02, 2024 Dash Bragg MD Other Provider Active Start: 2024 End: April 02, 2024 Dr. Ce Hanson MD Other Provider Active Start: April 01, 2024 End: April 02, 2024 Sejal Andrade MD Other Provider Active Start : April 01, 2024 End: April 02, 2024 Dr. Leticia Mejia DO Other Provider Active St art: April 01, 2024 End: April 02, 2024 Dr. Maria R Patrick MD Other Provider Active Start: April 01, 2024 End: April 02, 2024 Dr. Jabari Pearce MD Other Provider Active Sta rt: April 01, 2024 End: April 02, 2024 Dr. Luli Barger MD Other Provider Active Start : April 01, 2024 End: April 02, 2024 Dr. Jayro Mcgill MD Other Provider Active Start: April 01, 2024 End: April 02, 2024 Dr. Rory Fierro MD Other Provider Active Start : April 01, 2024 End: April 02, 2024 Dr. Charles Mims MD Other Provider Active Sta rt: April 01, 2024 End: April 02, 2024 Natalie Becker MD Other Provider Active Start : April 01, 2024 End: April 02, 2024 Dr. Layo Partida MD Other Provider Active St art: April 01, 2024 End: April 02, 2024 Dr. Giovana Contreras MD Other Provider Active Start : April 01, 2024 End: April 02, 2024 Dr. Karina Gimenez MD Other Provider Active Sta rt: April 01, 2024 End: April 02, 2024 Dr. Johnna Siegel MD Other Provider Active Start: April 01, 2024 End: April 02, 2024 Dr. Tariq Patel MD Other Provider Active St art: April 01, 2024 End: April 02, 2024 Dr. Bhavya Tanner MD Other Provider Active Star t: April 01, 2024 End: April 02, 2024 Dr. Ji Reeves MD Other Provider Active St art: April 01, 2024 End: April 02, 2024 Dr. Mayra Kaufman MD Other Provider Active Start: April 01, 2024 End: April 02, 2024 Tristan Espinoza MD Other Provider Active Start: April 01, 2024 End: April 02, 2024 Dr. Moreno Moody DO Attending Provider Active Start: April 01, 2024 End: April 02, 2024 Team Status: Active Member Role Status Dates REBECCA Wallace Primary Care Provider Active Start: April 02, 2024 Dr. Artis Lopez MD Attending Provider Activ e Start: April 02, 2024 Team Status: Active Member Role Status Dates REBECCA Wallace Primary Care Provider Active Start: April 02, 2024 Dr. Meagan Norman MD Emergency Provider Active Start: April 02, 2024 Dr. Chelsea Kaufman DO Admit Provider Active Start : April 02, 2024 Dr. Chelsea Kaufman DO Other Provider Active Start : April 02, 2024 Dash Bragg MD Other Provider Active Start: Anu nolan 2024 Dr. Ce Hanson MD Other Provider Active Start: April 02, 2024 Sejal Andrade MD Other Provider Active Start : April 02, 2024 Dr. Leticia Mejia DO Other Provider Active St art: April 02, 2024 Dr. Maria R Patrick MD Other Provider Active Start: April 02, 2024 Dr. Jabari Pearce MD Other Provider Active Sta rt: April 02, 2024 Dr. Luli Barger MD Other Provider Active Start : April 02, 2024 Dr. Jayro Mcgill MD Other Provider Active Start: April 02, 2024 Dr. Rory Fierro MD Other Provider Active Start : April 02, 2024 Dr. Charles Mims MD Other Provider Active Sta rt: April 02, 2024 Natalie Becker MD Other Provider Active Start : April 02, 2024 Dr. Layo Partida MD Other Provider Active St art: April 02, 2024 Dr. Giovana Contreras MD Other Provider Active Start : April 02, 2024 Dr. Karina Gimenez MD Other Provider Active Sta rt: April 02, 2024 Dr. Johnna Siegel MD Other Provider Active Start: April 02, 2024 Dr. Tariq Patel MD Other Provider Active St art: April 02, 2024 Dr. Bhavya Tanner MD Other Provider Active Star t: April 02, 2024 Dr. Ji Reeves MD Other Provider Active St art: April 02, 2024 Dr. Mayra Kaufman MD Other Provider Active Start: April 02, 2024 Tristan Espinoza MD Other Provider Active Start: April 02, 2024 Dr. Moreno Moody DO Attending Provider Active Start: April 02, 2024 Dr. Moreno Moody DO Other Provider Active Star t: April 02, 2024 Team Status: Inactive Member Role Status Dates REBECCA Wallace Primary Care Provider Active Start: April 26, 2024 End: April 26, 2024 REBECCA Wallace Referring Provider Active Start: April 26, 2024 End: April 26, 2024 Dr. Jose Miguel Eng MD Attending Provider Active Start: April 26, 2024 End: April 26, 2024 Team Status: Inactive Member Role Status Dates REBECCA Wallace Primary Care Provider Active Start: June 11, 2024 End: June 11, 2024 REBECCA Wallace Attending Provider Active Start: June 11, 2024 End: June 11, 2024 REBECCA Wallace Referring Provider Active Start: June 11, 2024 End: June 11, 2024 Team Status: Inactive Member Role Status Dates REBECCA Wallace Primary Care Provider Active Start: July 02, 2024 End: July 02, 2024 REBECCA Wallace Attending Provider Active Start: July 02, 2024 End: July 02, 2024 REBECCA Wallace Referring Provider Active Start: July 02, 2024 End: July 02, 2024 FOR RECORDS PERTAINING TO PATIENTS WHO ARE OR HAVE BEEN ENROLLED IN A CHEMICAL DEPENDENCY/SUBSTANCEABUSE PROGRAM, SOME INFORMATION MAY BE OMITTED. This clinical summary was aggregated from multiple sources. Caution should be exercised in using it in the provision of clinical care. This summary normalizes information from multiple sources, and as a consequence, information in this document may materially change the coding, format and clinical context of patient data. In addition, data may be omitted in some cases. CLINICAL DECISIONS SHOULD BE BASED ON THE PRIMARY CLINICAL RECORDS. [facility] [employer], [facility]. provides no warranty or guarantee of the accuracy or completeness of information in this document.
[2024-08-20 07:19] LABS: Hematocrit 40.7 % (37-47); Hemoglobin 13.3 g/dL (12.0-15.0); Immature Granulocytes Count 0.040 X10^3/uL (0.0-0.0); Mean Corp Hgb Conc 32.7 g/dL (32-36); Mean Corpuscular Volume 91.1 fL (81-99); Mean Platelet Vol. 11.1 fl (6.2-12.0); NRBC Flagged by Analyzer 0 % (0-5); Platelet Count 222 K/mm3 (150-450); RBC Distribution Width CV 12.4 % (11.6-14.6); RBC Distribution Width SD 41.6 fl (35.1-43.9); Red Blood Count 4.47 M/mm3 (4.2-5.4); White Blood Count 5.9 K/mm3 (4.4-11.0)
[2024-08-20 07:29] LABS: Creatinine, Urine (random) 71.00 mg/dL (28.00-217.00); Microalbumin,Random Urine < 12.0 mg/L (NO RANGE EST.)
[2024-08-20 07:45] LABS: AST(SGOT) 17 U/L (<=31); Alanine Aminotransfer ALT/SGPT 15 U/L (<=34); Albumin, Serum 4.2 g/dL (3.4-4.8); Alkaline Phosphatase 80 U/L (35-104); Anion Gap 9 (5-15); BUN 19 mg/dL (4-19); BUN/Creat Ratio 19.1 RATIO (10-20); Calcium,Total 9.3 mg/dL (7.6-11.0); Carbon Dioxide 24.3 mmol/L (21.0-32.0); Chloride 103 mmol/L (98-108); Cholesterol 247 mg/dL (<=200); Globulin 2.5 g/dL (2.2-4.2); Glucose 100 mg/dL (70-99); Low Density Lipoprotein Calc. 166 mg/dL; Potassium 5.2 mmol/L (3.3-5.1); Triglycerides 72 mg/dL; Very Low Density Lipoprotein 14 mg/dL (5-40); cholesterol:hdl ratio screen 3.70
== END | disposition home or self-care (01) ==
PROVIDERS: PCP Nurse Practitioner Family; Referring Provider Nurse Practitioner Family; Visit Provider Nurse Practitioner Family
DX: R73.03 Prediabetes (principal); I10 Essential (primary) hypertension; E78.00 Pure hypercholesterolemia, unspecified; E03.9 Hypothyroidism, unspecified; E55.9 Vitamin D deficiency, unspecified
CPT/HCPCS: 36415; 80053; 80061; 82043; 82570; 83036; 84443; 85025

== ENCOUNTER → 2024-11-04 | Outpatient (CLI) | payer OTHER, SELFPAY ==
--- OUTSIDE RECORDS SUMMARY | 2024-11-04 06:08 | XMS RPT_ITS | CCD ---
Author Organization [facility] Care Team Providers Care Associate Sales Name Role Phone Leatha Morrison E Unavailable Gordo Solitario Unavailable Nidia Mark Unavailable Kristyn Leblanc F Unavailable Brendan Maloneyril Unavailable Unavailable Lexx Persaud Unavailable Jose Miguel Bahena Unavailable Jose Miguel Trevizo Unavailable Melissa Arnett Unavailable Signs, Silvia J Unavailable Isis Phoenix Unavailable Unavailable Crystal Painter Unavailable Unavailable Mer Solorio Unavailable Unavailable Slarb, Radha Unavailable Unavailable Unavailable Unavailable Leatha Morrison Unavailable GordoSolitario Unavailable Nidia Mark Unavailable Kristyn Leblanc F Unavailable Haider Emmett Unavailable Unavailable Lexx Persaud Unavailable Jose Miguel Bahena Unavailable Jose Miguel Trevizo Unavailable Esequiel Arnetta M Unavailable Signs, Silvia J Unavailable Brennon Ramierz Unavailable Guillermo Phoenixllian Unavailable Unavailable Nick Barrow Unavailable Unavailable Madina, Crystal Unavailable Unavailable Slarb, Radha Unavailable Unavailable Unavailable Unavailable Nidia Mark Unavailable Gravius, Briana Unavailable Unavailable Bonnie Liu Unavailable Unavailable Nick Barrow Unavailable Unavailable Tony Johnsona Unavailable Unavailable Gravius, Briana Unavailable Unavailable Unavailable Unavailable Mer Solorio Unavailable Unavailable Nick Kumar Unavailable Unavailable Ciesa SUPERVISOR DOG LICENSE OFFICER, Edilia Unavailable Solitario Caro MD Unavailable Nidia Mark Unavailable Benji SCHULZ, Kristyn Huber Unavailable Emmett Maloney Unavailable Unavailable Lexx Persaud Unavailable Jose Miguel Bahena Unavailable Jose Miguel Trevizo Unavailable Hope SCHULZ, Melissa Tadeo Unavailable Shari SCHULZ, Silvia Almonte Unavailable Brennon Ramirez Unavailable Dr. Michael Mandujano Unavailable Misael SCHULZ, Andrew Valle Unavailable Isis Phoenix Unavailable Unavailable Amado COMMERCIAL PLUMBER, Yuki Unavailable Unavailable José COMMERCIAL PLUMBER, Nick Unavailable Unavailable Slarb COMMERCIAL PLUMBER, Radha Unavailable Unavailable Gravius KEY RINGER, Briana Unavailable Unavailable Unavailable Unavailable Dhruv COMMERCIAL PLUMBER, RACHEL Unavailable Unavailable Hope SCHULZ, Melissa Tadeo Unavailable Tori Anthony Unavailable Unavailable Tori Anthony Unavailable Unavailable Ciesa, Leatha Unavailable Mayra Escobedo CNP Unavailable Gregg RAPP, Mayra Unavailable Ciesa, Leatha Unavailable Mayra Escobedo CNP Attending Unavailable Mayra Escobedo CNP Referring Unavailable Mayra Escobedo CNP Consulting Unavailable Friend, Dr. Hercules Unavailable [place] COMMERCIAL PLUMBER, Devyn Unavailable Unavailable Vicente, Gera Unavailable Unavailable Grgeg HA-CMayra Primary Care Provider Gregg MANAGER FURNITURE-CMayra Referring Provider Chapo Yates MD Attending Provider Chapo Yates MD Referring Provider Emerson SCHULZ, Dr. Rhodes Emergency Provider Mandeep SANCHEZ, Dr. Tran Admit Provider Mandeep SANCHEZ, Dr. Tran Other Provider Dash Bragg MD Other Provider Unavailable Valentin SCHULZ, Dr. Encinas Other Provider [phone] Lupe SCHULZ, Sejal Other Provider Unavailable Dr. Leticia Mejia DO Other Provider Darnell SCHULZ, Dr. Heck Other Provider [phone] Portia SCHULZ, Dr. Barboza Other Provider Charbel SCHULZ, Dr. Rockwell Other Provider Artem SCHULZ, Dr. Dial Other Provider [phone] Vadim SCHULZ, Dr. Valadez Other Provider Prasanna SCHULZ, Dr. Soto Other Provider Eugenio SCHULZ, Natalie Other Provider Helga SCHULZ, Dr. Castañeda Other Provider Ben SCHULZ, Dr. Akhtar Other Provider Pernell SCHULZ, Dr. Collins Other Provider Christal SCHULZ, Dr. Johnna Patten Other Provider Jorge SCHULZ, Dr. Potter Other Provider [phone] Ciro SCHULZ, Dr. Latif Other Provider Leandro SCHULZ, Dr. Workman Other Provider Mandeep SCHULZ, Dr. Nunez Other Provider Unavailable Olga SCHULZ, Tristan Other Provider Unavailable Dr. Moreno Moody DO Attending Provider Jessica SCHULZ, Dr. Wisdom Attending Provider Dr. Moreno Moody DO Other Provider Dr. Jose Miguel Eng MD Attending Provider Rgegg MANAGER FURNITURE-C, Mayra Attending Provider Gregg MANAGER FURNITURE-C, Mayra Primary Care Provider Chapo Yates MD Attending Provider Gregg MANAGER FURNITURE-C, Mayra Referring Provider Gregg MANAGER FURNITURE-C, Mayra Primary Care Provider Gregg MANAGER FURNITURE-C, Mayra Referring Provider Gregg MANAGER FURNITURE-C, Mayra Primary Care Provider Gregg MANAGER FURNITURE-C, Mayra Attending Provider Gregg MANAGER FURNITURE-C, Mayra Referring Provider Delaney Mosquera Attending Provider Gregg, Mayra Primary Care Unavailable Assessment, Health Risk Attending Unavaila ble Assessment, Health Risk Referring Unavaila ble Chelsea Kaufman Admitting Unavailable Gregg, Mayra Primary Care Unavailable Chelsea Kaufman Attending Unavailable Dash Bragg Consulting Unavailable Adeli, Amir Consulting Unavailable Hindususan, Sejal Consulting Unavailable Roberto Leticia Consulting Unavailable Zha, Maria R Consulting Unavailable Portia, Jabari Consulting Unavailable Charbel, Luli Consulting Unavailable Jayro Mcgill Consulting Unavailable Rory Fierro Consulting Unavailable Charles Mims Consulting Unavailable Natalie Becker Consulting Unavailable Layo Partida Consulting Unavailable Giovana Contreras Consulting Unavailable Karina Gimenez Consulting Unavailable Johnna Siegel Consulting UnavailTariq Rothman Consulting Unavailable Bhavya Tanner Consulting Unavailable Ji Reeves Consulting Unavailable Mayra Kaufman Consulting Unavailable Tristan Espinoza Consulting Unavailable Chelsea Kaufman Consulting Unavailable Moreno Moody Attending Unavailable Moreno Moody Consulting Unavailable Brennon Ramirez Referring Unavailable Brennon Ramirez Attending Unavailable Gregg, Mayra Primary Care Unavailable Gregg, Mayra Referring Unavailable Gregg Mayra Attending Unavailable Gregg, Mayra Primary Care Unavailable Gregg Mayra Referring Unavailable Gregg Mayra Attending Unavailable Gregg, Mayra Primary Care Unavailable Gregg, Mayra Referring Unavailable Gregg, Mayra Attending Unavailable Gregg, Mayra Primary Care Unavailable Alanna Nieto Referring Unavailable Alanna Nieto Attending Unavailable Gregg, Mayra Primary Care Unavailable Gregg, Mayra Primary Care Unavailable Gregg, Mayra Referring Unavailable Delaney Mosquera Attending Unavail able Gregg, Mayra Primary Care Unavailable Gregg, Mayra Referring Unavailable Jose Miguel Eng Attending Unavailable Gregg, Mayra Referring Unavailable Gregg, Mayra Primary Care Unavailable Chapo Yates Attending Unavailable Gregg, Mayra Referring Unavailable Gregg, Mayra Primary Care Unavailable Chapo Yates Attending Unavailable Gregg, Mayra Primary Care Unavailable Artis Lopez Attending Unavailjoy e Gregg, Mayra Referring Unavailable Gregg, Mayra Primary Care Unavailable Chapo Yates Attending Unavailable Gregg, Mayra Referring Unavailable Gregg, Mayra Attending Unavailable Gregg, Mayra Primary Care Unavailable Gregg, Mayra Primary Care Unavailable Chapo Yates Attending Unavailable Idaliaison, Chapo Referring Unavailable Gregg, Mayra Primary Care Unavailable Gregg, Mayra Attending Unavailable Gregg, Mayra Referring Unavailable Gregg, Mayra Primary Care Unavailable Gregg, Mayra Attending Unavailable Gregg, Mayra Referring Unavailable Chelsea Kaufman Admitting Unavailable Gregg, Mayra Primary Care Unavailable Moreno Moody Attending Unavailable Dash Bragg Consulting Unavailable Adeli, Amir Consulting Unavailable Hinduja, Sejal Consulting Unavailable Roberto Leticia Consulting Unavailable Darnell, Maria R Consulting Unavailable Jabari Pearce Consulting Unavailable Luli Barger Consulting Unavailable Jayro Mcgill Consulting Unavailable Rory Fierro Consulting Unavailable Charles Mims Consulting Unavailable Natalie Becker Consulting Unavailable Layo Partida Consulting Unavailable Giovana Contreras Consulting Unavailable Karina Gimenez Consulting Unavailable Johnna Siegelzat Consulting UnavailTariq Rothman Consulting Unavailable Tanner, Rami Consulting Unavailable Ji Reeves Consulting Unavailable Mayra Kaufman Consulting Unavailable Tristan Espinoza Consulting Unavailable Chelsea Kaufman Consulting Unavailable Gregg, Mayra Primary Care Unavailable Gregory Aponte Referring Unavailable Gregory Aponte Attending Unavailable Gregg, Mayra Primary Care Unavailable Gregg, Mayra Attending Unavailable Gregg, Mayra Referring Unavailable Allergies Allergy [...] PATCHES; Translations: [LIDODERM PATCHES] allergy to substance [facility] Work Phone: (20 sources) Ibuprofen; Translations: [Ibuprofen *ANALGESICS - ANTI-INFLAMMATORY* ] Drug Allergy [facility]; [facility] Work [...] Internal Medicine; [facility] Work Phone: (16 sources) Albuterol; Translations: [albuterol] Drug Allergy 10-11-19 21 Swelling [facility] Work Phone: (13 sources) Lidocaine Drug Allergy 10-11-19 21 [facility] (1 source) Allergy to substance (finding) Comprehensive [...] [facility] Work Phone: (1 source) Losartan Drug Allergy 10-30-19 Nausea [facility] Comment on above: but could tolerate b enicar (1 source) Lidocaine Drug Allergy 10-30-19 [facility] Repository (1 source) Losartan Drug Allergy 10-30-19 [facility] Repository Medications Current Medications Medication Drug Class(es) Dates Sig (Normalized) Sig (Original) alendronic acid 70 mg oral tablet (8 sources) Bisphosphonate Start: 04-01-2024 End: 04-26-2024 take 1 tablet by mouth every week Alendronate 70 mg tablet Active 70 mg PO EVERY WEEK April 26, 2024 4:30pm bone amLODIPine 10 mg oral tablet (20 sources) Dihydropyridine Calcium Channel Marina Start: 10-29-2024 take 1 tablet by mouth once daily Amlodipine 10 mg tablet Active 10 mg PO daily October 29, 2024 12:00am Start: 07-23-2008 End: 04-26-2024 take 1 tablet by mouth once daily Amlodipine 10 MG tablet Discontinued 10 mg PO DAILY 19 01March 14, 2017 5:33pm April 26, 2024 4:33pm BP aspirin 81 mg chewable tablet (20 sources) [...] TABS One tablet by mouth daily ASPIRIN [id number] Kristyn Leblanc MD take 1 tablet by reji th twice daily ASPIRIN EC 325 MG TBEC One tablet by mouth twice daily ASPIRIN [id number] Vicky Arevalo COMMERCIAL PLUMBER carvedilol 25 mg oral tablet (6 sources) alpha-Adrenergic Marina, beta-Adrenergic Marina Start: 10-29-2024 take 1 tablet by mouth twice daily at mealtime Carvedilol 25 mg tablet Active 25 mg PO TWICE A DAY 180 October 29, 2024 3:24pm must administer with a meal/food Start: 04-26-2024 End: 10-29-2024 take 1 tablet by mouth twice daily at mealtime Carvedilol (Coreg) 12.5 mg tablet Discontinued 12.5 mg PO TWICE A DAY 60 October 29, 2024 3:11pm October 29, 2024 3:25pm must administer with a meal/food ergocalciferol 1.25 mg oral capsule (20 sources) Provitamin D2 Compound Start: 05-31-2023 Ergocalciferol (Jackie min D2) (Vitamin D2) 1,250 mcg (50,000 unit) capsule Active 42870 U PO .2X WEEK May 31, 2023 12:00am SUPPLEMENT Start: 12-14-2021 Start: 11-18-2020 Start: 09-23-2019 take 1 capsule by mo [facility] two times weekly Ergocalciferol 1.25 MG (15586 UT) Oral Capsule 1 Capsule twice weekly for 30 days Quantity: 8 {Capsule} Refills: 3 Ordered: 23-Sep-2019 Leatha Morrison CNP, CNP, Mary E Start : 23-Sep-2019 Active Start: 11-15-2017 take 1 capsule by mo ut two times weekly Ergocalciferol 30684 UNIT Oral Capsule 1 Capsule twice weekly for 30 days Quantity: 8 {Capsule} Refills: 3 Ordered: 15-Nov-2017 Leatha Morrison CNP, CNP, Mary E Start : 15-Nov-2017 Active End: 11-26-2012 take 1 capsule by mouth two times weekly ERGOCALCIFEROL 29746 UNIT CAPS 1 po twice weekly ERGOCALCIFEROL [id number] Vicky Arevalo COMMERCIAL PLUMBER ferrous sulfate 325 mg oral tablet (20 sources) Start: 05-31-2023 take 1 tablet by mouth every other day Ferrous Sulfate 325 MG tablet Active 325 mg PO .QOD May 31, 2023 12:00am SUPPLEMENT Start: 11-05-2014 take 1 tablet by reji once daily FERROUS SULFATE 325 (65 Fe) MG TABS One tablet by mouth daily FERROUS SULFATE [id number] Kristyn Leblanc MD Start: 05-09-2013 End: 05-31-2023 take 1 tablet by mouth twice daily at mealtime Ferrous Sulfate 325 MG tablet Discontinued 325 mg PO TWICE DAILY WITH MEALS 60 0 June 13, 2013 12:00am May 31, 2023 [...] DAILY July 23, 2013 12:00am levothyroxine sodium 0.175 mg oral tablet (20 sources) l-Thyroxine Start: 10-29-2024 take 1 tablet by mouth once daily Levothyroxine 175 mcg tablet Active 175 ug PO daily October 29, 2024 12:00am Start: 05-31-2023 End: 04-26-2024 Levothyroxine 125 mcg capsul e Discontinued 187.5 ug PO .ayMay 31, 2023 12:00am April 26, 2024 4:34pm THYROID Start: 05-31-2023 take 187.5 ug by reji [...] Quantity: 36 {Tablet} Refills: 6 Ordered: 23-Sep-2019 Leatha Morrison CNP, CNP, Mary E Start : 23-Sep-2019 Active Dispense as Written Comments: GISSELLE Start: 11-15-2017 take 1 tablet by reji th once daily, then take 2 tablets by mouth Synthroid 150 MCG Oral Tablet 1 Tablet qd except 2 on Monday for 0 days Quantity: 36 {Tablet} Refills: 6 Ordered: 15-Nov-2017 Leatha Morrison CNP, CNP, Mary E Start : 15-Nov-2017 Active Dispense as Written Comments: GISSELLE Start: 03-12-2013 End: 04-26-2024 Levothyroxine 125 MCG tablet Discontinued [facility] May 31, 2023 12:00am April 26, 2024 4:34pm THYROID Start: 09-28-2010 take 1 tablet by reji th once daily LEVOTHROID 125 MCG TABS One tablet by mouth daily LEVOTHYROXINE SODIUM [id number] Cassi Haas Start: 11-18-2009 End: 12-18-2009 take 1 tablet by mouth once daily SYNTHROID 150 MCG TABS 1 tab by mouth daily LEVOTHYROXINE SODIUM [id number] Martita OLSEN Start: 12-24-2008 End: 11-18-2009 SYNTHROID 125 MCG TABS daily LEVOTHYROXINE SODIUM [id number] Mami Worthington LPN Start: 08-06-2008 End: 11-17-2008 Start: 11-27-2006 End: 12-26-2006 Start: 11-14-2005 End: 11-14-2005 Comment on above: GISSELLE med increased now using 200 only LORazepam 0.5 mg oral tablet (4 sources) Benzodiazepine Start: 5 take 1 tablet by mouth twice daily as needed for anxiety Lorazepam 0.5 mg tablet Active 0.5 mg PO TWICE A DAY as needed for anxiety March 28, 2024 1:00am meclizine hydrochloride 25 mg oral tablet (20 sources) Antiemetic Start: take 1 tablet by mouth four times daily as needed for dizziness Meclizine 25 mg tablet Active 25 mg PO 4 TIMES DAILY as needed for dizziness March 28, 2024 1:00am Start: 08-26-2013 End: 11-12-2013 End: 11-05-2014 take 4 tablets by mouth once daily as needed MECLIZINE HCL 25 MG TABS po 4 x q day prn MECLIZINE HCL [id number] Vicky Arevalo LPN pantoprazole 40 mg delayed release oral tablet (15 sources) Proton Pump Inhibitor Start: 03-28-2024 take 1 tablet by mouth once daily Pantoprazole 40 mg tablet,delayed release (DR/EC) Active 40 mg PO daily March 28, 2024 1:00am Start: 10-31-2022 Completed/Discontinued Medications Medication Drug Class(es) Dates Sig (Normalized) Sig (Original) acetaminophen 500 mg oral tablet (9 sources) Start: 06-15-2023 End: 10-29-2024 Acetaminophen 500 mg Tablet Discontinued 1000 mg PO THREE TIMES A DAY as needed for pain April 01, 2024 1:00am October 29, 2024 3:06pm Do not take more than 3000 mg Tylenol in a 24-hour period. Start: 06-15-2023 take 3000 mg by mout h three times daily Acetaminophen Active 1000 MG PO THREE TIMES A DAY 0 June 15, 2023 12:00am Do not take more than 3000 mg Tylenol in a 24-hour period. acetaminophen 325 mg / HYDRO codone bitartrate 5 mg oral tablet (20 sources) [...] 21-Jan-2013 Discontinued Comments: This order discontinued per [facility]. take 1 tablet by reji th every six hours as needed NORCO, 5-325MG (Oral Tablet) 1 q 6 hours prn (5-325 MG) Inactive take 1-2 tablets by mouth every six hours as needed VICODIN TABS 1-2 tabs po q 6 hrs prn HYDROCODONE-ACETAMINOPHEN TABS [id number] Vicky Arevalo COMMERCIAL PLUMBER End: 11-26-2012 take 1-2 tablets by mouth every six hours as needed VICODIN TABS 1-2 tabs po q 6 hrs prn HYDROCODONE-ACETAMINOPHEN TABS [id number] Silvia Mccarthy MD Comment on above: This order discontin ued per [facility]. acetaminophen 325 mg / oxyCODONE hydrochloride 5 mg oral tablet (20 sources) Opioid Agonist Start: 11-04-2018 End: 11-10-2018 Oxycodone-Acetaminophen 1 TABLET tablet Discontinued 1 {tbl} PO EVERY 6 HOURS NEEDED as needed for Pain 12 3 0 November 04, 2018 November 06, 2018 12:00am November 10, 2018 12:10am Sciatica Sciatica, unspecified side Start: 11-04-2018 End: 11-10-2018 take 1 tablet by mouth every six hours as needed Oxycodone-Acetaminophen Discontinued 1 TABLET PO EVERY 6 HOURS NEEDED 12 November 04, 2018 November 10, 2018 12:10am Start: 04-27-2013 End: 11-05-2014 Oxycodone-Acetaminophen 1 TA BLET tablet Discontinued 1 - 2 {tbl} PO EVERY 4 HOURS NEEDED as needed for PAIN 60 1 May 09, 2013 12:00am June 13, 2013 [...] Start: 12-10-2007 take 1 tablet by reji th four times daily as needed DARVOCET-N 100, 100-650MG (Oral Tablet) 1 (one) Tablet QID/PRN for 0 days Quantity: 30 {Tablet} Refills: 0 Ordered: 14-Jul-2009 RACHEL Bartlett Start : 10-Dec-2007 Inactive acetaminophen 650 mg / propoxyphene napsylate 100 mg oral tablet (20 sources) Opioid Agonist Start: 12-10-2007 acyclovir 800 mg oral tablet (20 sources) Herpesvirus Nucleoside Analog DNA Polymerase Inhibitor, Herpes Simplex Virus Nucleoside Analog DNA Polymerase Inhibitor, Herpes Zoster Virus Nucleoside Analog DNA Polymerase Inhibitor 0.8 ml adalimumab 50 mg/ml prefilled syringe (13 sources) Tumor Necrosis Factor Marina Start: 11-04-2018 End: 05-31-2023 Adalimumab 40 MG/0.8 ML syringe kit Discontinued 40 mg SQ Q14D November 04, 2018 12:00am May 31, 2023 11:03am [id number] 200 actuat albuterol 0.09 mg/actuat metered dose inhaler (20 sources) beta2-Adrenergic Agonist Start: 06-08-2010 End: 10-07-2010 Start: 06-08-2010 End: 10-07-2010 take 2 puff(s) by inhalation twice daily PROVENTIL HFA, 108 (90 Base)MCG/ACT (Inhalation Aerosol Solution) 2 (two) Puff(s) bid for 0 days Quantity: 1 {Aerosol_Soln} Refills: 0 Ordered: 07-Oct-2010 Julianne Donnelly LPN Start : 08-Jun-2010 End : 07-Oct-2010 Inactive amoxicillin 875 mg / clavulanate 125 mg oral tablet (20 sources) Penicillin-class Antibacterial Start: 06-22-2022 End: 06-29-2022 take 1 tablet by mouth every twelve hours Start: 06-19-2018 End: 07-03-2018 Start: 06-19-2018 End: 07-03-2018 take 1 tablet by mouth twice daily Augmentin 875-125 MG Oral Tablet 1 Tablet bid for 14 days Quantity: 28 {Tablet} Refills: 0 Ordered: 19-Jun-2018 Tamiko RAPP, Edilia Tamiko RAPP, Leatha Crum Start : 19-Jun-2018 End : 03-Jul-2018 Inactive Start: 02-26-2015 End: 03-08-2015 take 1 tablet by mouth twice daily AUGMENTIN, 875-125MG (Oral Tablet) 1 Tablet bid for 10 days Quantity: 20 {Tablet} Refills: 0 Ordered: 26-Feb-2015 Melissa Arnett MD Start : 26-Feb-2015 End : 08-Mar-2015 Inactive Haiqn-Irgd-Clxnn-Collag-Mv-M in (Patrick (With Collagen)) 7-7-1.5 gram Powder In Packet (5 sources) Start: 06-15-2023 End: 02-26-2024 Dlyfw-Ooig-Sclqq-Collag-Mv-M in (Patrick (With Collagen)) 7-7-1.5 gram Powder In Packet Discontinued 1 NMA PO DAILY 0 0 June 15, 2023 12:00am February 26, 2024 12:42pm Start: 06-15-2023 End: 02-26-2024 Fgriv-Ulxg-Luubn-Collag-Mv-M in (Patrick (With Collagen)) 7-7-1.5 gram Powder In Packet Discontinued 1 NMA PO DAILY 0 June 15, 2023 12:00am February 26, 2024 12:42pm Start: 06-15-2023 Wtnls-Wbvk-Egs pv-Ypqewl-Hr-Min (Patrick (With Collagen)) 7-7-1.5 gram Powder In Packet Active 1 PACKET PO DAILY 0 June 15, 2023 12:00am ascorbic acid 500 mg extended release oral capsule (4 sources) Vitamin C Start: 04-01-2024 End: 04-26-2024 [...] mg capsule Discontinued 10 mg PO DAILY 30 0 October 10, 2020 12:00am May 31, 2023 11:04am chlorthalidone 25 mg oral tablet (4 sources) Thiazide-like Diuretic Start: 03-28-2024 End: 04-26-2024 take 1 tablet by mouth at bedtime Chlorthalidone 25 mg tablet Discontinued 25 mg PO AT BEDTIME March 28, 2024 1:00am April 26, 2024 4:49pm cholesterol chondroitin sulfate-vit C-Mn (20 sources) Start: 11-04-2008 End: 06-08-2010 CHONDROITIN SULFATE-VIT C-MN, 400-60-2.5MG (Oral Capsule) (13 sources) Start: 11-04-2008 End: 06-08-2010 take 1 capsule by mouth once daily CHONDROITIN SULFATE-VIT C-MN, 400-60-2.5MG (Oral Capsule) 1 (one) Capsule daily for 0 days Refills: 0 Ordered: 04-Nov-2008 Julianne Donnelly LPN Start : 04-Nov-2008 End : 08-Jun-2010 Discontinued [...] Quantity: 1 {Tube} Refills: 4 Ordered: 06-Apr-2020 Tamiko RAPP, Leatha Morrison CNP, Edilia Start : 06-Apr-2020 Active Comments: Large tube Start: 11-15-2017 Clobetasol Pro pionate 0.05 % External Ointment 1 Ointment bid for 60 days Quantity: 1 {Tube} Refills: 4 Ordered: 15-Nov-2017 Leatha Morrison CNP, CNP, Edilia Start : 15-Nov-2017 Active Comments: Large tube Comment on above: Large tube clonazePAM 0.5 mg oral tablet (20 sources) Benzodiazepine Start: 09-28-2010 End: 03-29-2011 CLONAZEPAM 0.5 MG TABS as needed CLONAZEPAM [id number] Cassi Haas End: 12-21-2006 clotrimazole 10 mg [...] by mouth three times daily CYCLOBENZAPRINE HCL [id number] Brain Jean MD DAPTOmycin 500 mg injection (20 sources) Lipopeptide Antibacterial Start: 04-27-2013 End: 05-09-2013 take 1 dose intravenously every twenty-four hours Daptomycin 500 MG/10 ML Vial Discontinued 500 mg IV Q24H April 27, 2013 1:00am May 09, 2013 11:25am Start: 04-15-2013 End: 04-15-2013 Daptomycin 500 MG/10 ML Vial Discontinued 500 mg IV DAILY 39 0 April 15, 2013 1:00am April 15, 2013 1:28pm daily thru picc line with routine picc line care thru May 22, 2013. weekly CBC, CPK, SED RATE, Cr and CRP and fax to Dr Mccarthy at [phone] Deplin (20 sources) Start: 12-26-2011 End: 11-15-2012 Start: [...] Quantity: 90 {Capsule} Refills: 3 Ordered: 23-Sep-2019 Glendaelvialeonard RAPP Leatha Crum Glendaabram DIONTE Leatha Crum Start : 23-Sep-2019 Active Start: 09-23-2019 take 1 capsule by mo uth once daily Deplin 15 15-90.314 MG Oral Capsule 1 Capsule qd for 0 days Quantity: 90 {Capsule} Refills: 3 Ordered: 23-Sep-2019 Tamiko DIONTE Leatha Morrison DIONTE Leatha Crum Start : 23-Sep-2019 Active Comments: Mail order. Start: 11-15-2017 take 1 capsule by mo uth once daily Deplin 15 15-90.314 MG Oral Capsule 1 Capsule qd for 0 days Quantity: 90 {Capsule} Refills: 3 Ordered: 15-Nov-2017 Tamiko DIONTE Leatha Morrison DIONTELeatha Start : 15-Nov-2017 Active Comments: Mail order. Start: 11-15-2017 take 1 capsule by mo uth once daily Deplin 15 15-90.314 MG Oral Capsule 1 Capsule qd for 0 days Quantity: 90 {Capsule} Refills: 3 Ordered: 15-Nov-2017 Tamiko DIONTE Leatha Morrison DIONTELeatha Start : 15-Nov-2017 Active Start: 11-15-2016 End: [...] 15-Nov-2012 Discontinued Comments: This order discontinued per [facility]. Comment on above: This order discontin ued per [facility]. desloratadine 5 mg oral tabl et (20 [...] 05-13-2013 docusate sodium 50 mg / sennosides, retirement 8.6 mg oral tablet (9 sources) Start: 06-15-2023 End: 03-04-2024 Sennosides-Docusate Sodium [...] Discontinued 100 mg PO TWICE A DAY 13 June 15, 2023 12:00am February 26, 2024 12:44pm Take for 2 weeks postoperatively Start: 07-08-2013 End: 07-08-2014 take 1 capsule by mouth twice daily DOXYCYCLINE HYCLATE 100 MG CAPS one po twice daily DOXYCYCLINE HYCLATE [id number] Silvia Mccarthy MD End: 04-01-2014 Comment on [...] Quantity: 30 {Tablet} Refills: 1 Ordered: 13-Mar-2020 Leatha Morrison CNP, CNP, Mary E Start : 13-Mar-2020 Active esomeprazole 40 mg [...] One tablet by mouth twice daily. ETODOLAC [id number] Brain Jean MD famotidine 20 mg oral tablet (20 sources) Histamine-2 Receptor Antagonist Start: 06-15-2023 End: 03-04-2024 take 1 tablet by mouth once daily Famotidine 20 mg Tablet Discontinued 20 mg PO DAILY 30 30 0 June 15, 2023 12:00am March 04, 2024 3:51pm Start: 11-09-2020 End: 12-14-2021 Start: 10-10-2020 End: 05-31-2023 take 1 tablet by mouth twice daily Famotidine (Pepcid) 20 mg tablet Discontinued 20 mg PO TWICE A DAY 28 0 October 10, 2020 12:00am May 31, 2023 [...] MCG/HR PT72 1 q 72 hrs FENTANYL [id number] Vicky Arevalo LPN Comment on above: five [...] One tablet by mouth daily [facility] [id number] Leatha Montes De Oca RN Start: 07-23-2008 BENICAR HCT TA BS 40/12 daily [facility] TABS [id number] Mami Worthington LPN HYDROcodone bitartrate 7.5 mg / ibuprofen 200 mg oral tablet (2 sources) Opioid Agonist, Nonsteroidal Anti-inflammatory Drug Start: 12-19-2016 HYDROCODONE-IBUPROFEN 7.5-200 MG TABS As needed for knee pain HYDROCODONE-IBUPROFEN [id number] Jeffrey Leal MANAGER [employer]URNITURE hydrocortisone 0.025 mg/mg topical ointment (20 sources) Corticosteroid Start: 02-25-2011 End: 06-21-2011 Start: 02-25-2011 End: 06-21-2011 HYDROCORTISONE, 2.5% (Safety Aide al Ointment) 1 Ointment bid for 0 days Quantity: 1 {Ointment} Refills: 1 Ordered: 21-Jun-2011 Julianne Donnelly LPN Start : 25-Feb-2011 End : 21-Jun-2011 Inactive hydrOXYzine hydrochloride 25 mg oral tablet (19 sources) Antihistamine Start: 03-16-2022 End: 03-28-2022 C-[id number]-NIXCZ CAPS (8 sources) End: 06-14-2013 take 1 tablet by mouth once daily DEPLIN 15 CAPS One tablet by mouth daily C-WMUFZGEPBJPT-ERF AE CAPS [id number] Vicky Arevalo LPN take 1 tablet by reji th once daily DEPLIN 15 CAPS One tablet by mouth daily M-HMABTUGZEVLU-UWWTA CAPS [id number] Vicky Arevalo LPN End: 11-26-2012 take 1 tablet by mouth once daily DEPLIN 15 CAPS One tablet by mouth daily C-JHELDNOVCUFS-CJUKN CAPS [id number] Silvia Mccarthy MD lactobacillus rhamnosus gg 8 [id number] unt oral capsule (20 sources) Start: 05-11-2012 End: 05-25-2012 Start: 05-11-2012 End: 05-25-2012 take 1 capsule by mouth twice daily Kasia CALLAWAY CELL (Oral Capsule) 1 Capsule bid for [...] Oil (Deplin (Algal Oil)) 7.5 MG tablet (5 sources) Start: 07-23-2013 End: 04-26-2024 Levomefolate-Algal Oil (Deplin (Algal Oil)) 7.5 MG tablet Discontinued 15 mg PO DAILY July 23, 2013 12:00am April 26, 2024 4:34pm NERVES Start: 07-23-2013 End: 04-26-2024 Levomefolate-Algal Oil (Depl in (Algal Oil)) 7.5 MG tablet Discontinued 15 mg PO DAILY July 23, 2013 12:00am April 26, 2024 4:34pm Start: 07-23-2013 Levomefolate-A lgal Oil (Deplin (Algal Oil)) 7.5 MG tablet Active 15 MG PO DAILY July 23, 2013 12:00am linezolid 600 mg oral tablet (20 sources) Oxazolidinone Antibacterial Start: 05-13-2013 End: 08-26-2013 Start: 05-07-2013 End: 05-09-2013 take 1 tablet by mouth every twelve hours Linezolid 600 MG tablet Discontinued 600 mg PO Q12H 42 0 May 07, 2013 12:00am May 09, 2013 [...] Quantity: 30 {Tablet} Refills: 3 Ordered: 23-Sep-2019 Tamiko RAPP, Leatha Morrison CNP, Leatha Crum Start : 23-Sep-2019 Active Start: 11-15-2017 take 1 tablet by reji th once daily Lisinopril 5 MG Oral Tablet 1 (one) Tablet daily for 30 days Quantity: 30 {Tablet} Refills: 3 Ordered: 15-Nov-2017 Tamiko RAPP Leatha Morrison SUPERVISOR [employer]G LICENSE OFFICER, Leatha Crum Start : 15-Nov-2017 Active Start: 12-19-2016 take 1 tablet by reji th once daily LISINOPRIL 5 MG TABS One tablet by mouth daily LISINOPRIL [id number] Jeffrey Leal MANAGER [employer] loratadine 10 mg oral tablet (20 sources) [...] Start : 21-Jun-2011 End : 26-Jun-2011 Inactive losartan potassium 25 mg oral tablet (16 sources) Angiotensin 2 Receptor Marina Start: 04-26-2024 End: 10-29-2024 Losartan 25 mg tablet Discontinued 25 mg PO DAILY April 26, 2024 4:34pm October 29, 2024 3:06pm BP take 2 tablets in the morning and 1 at night Start: 05-31-2023 End: 04-26-2024 take 1 tablet by mouth once daily Losartan 25 mg tablet Discontinued 25 mg PO DAILY May 31, 2023 12:00am April 26, 2024 4:35pm BP Start: 12-14-2022 meloxicam 7.5 mg oral tablet (20 sources) Nonsteroidal Anti-inflammatory Drug Start: 06-15-2023 End: 02-26-2024 take 1 tablet by mouth twice daily Meloxicam 7.5 mg Tablet Discontinued 7.5 mg PO TWICE A DAY 60 30 0 June 15, 2023 12:00am February 26, [...] th once daily TOPROL XL 100 MG [id number] One tablet by mouth daily METOPROLOL SUCCINATE [id number] Martita OLSEN metroNIDAZOLE 500 mg oral ta blet (20 sources) Nitroimidazole Antimicrobial Start: 10-25-2018 End: 11-05-2018 Start: 05-31-2012 End: 06-14-2012 take 1 tablet by mouth three times daily FLAGYL, 500MG (Oral Tablet) 1 Tablet tid for 14 days Quantity: 42 {Tablet} Refills: 0 Ordered: 31-May-2012 Bharat SANCHEZ Aye Start : 31-May-2012 End : 14-Jun-2012 Inactive [...] One tablet by mouth daily [facility] [id number] Brani Jean MD omega 4-ang-lzz-fish oil (20 sources) Start: 9 End: 4 omega-3 acid ethyl esters (retirement) 1000 mg oral capsule (9 sources) Start: [...] tablet by mouth daily OMEGA-3 FATTY ACIDS [id number] Vicky Arevalo LPN End: 06-14-2013 take 1 tablet by mouth once daily FISH OIL 1000 MG CAPS One tablet by mouth daily OMEGA-3 FATTY ACIDS [id number] Vicky Arevalo LPN [place]ancock-3 Fatty Acids-Fish Oil (Fish Oil) 1 EACH capsule (13 sources) Start: 03-12-2013 End: 05-09-2013 [place]ancock-3 Fatty Acids-Fish Oil (Fish Oil) 1 EACH capsule Discontinued 1 EACH PO DAILY March 12, 2013 3:27pm May 09, 2013 11:25am Start: 03-12-2013 End: 05-09-2013 [place]-3 Fatty Acids-Fish Oil (Fish Oil) 1 EACH capsule Discontinued 1 NMA PO DAILY March 12, 2013 1:00am May 09, 2013 11:25am Start: 03-12-2013 End: 05-09-2013 [place]-3 Fatty Acids-Fish Oil (Fish Oil) 1 EACH capsule Discontinued 1 EACH PO DAILY March 12, 2013 12:00am May 09, 2013 10:25am Start: 03-12-2013 End: 05-09-2013 [place]-3 Fatty Acids-Fish Oil (Fish Oil) 1 EACH [...] tablet Discontinued 20 mg PO AT BEDTIME 30 0 June 13, 2013 12:00am March 04, 2024 3:51pm CHOLESTEROL Comment on above: not effective predniSONE 10 [...] Quantity: 30 {Tablet} Refills: 0 Ordered: 10-Dec-2007 Dhruv BALLESTEROS RACHLE Start : 10-Dec-2007 End : 24-Apr-2008 Inactive End: 11-26-2012 PROMETHAZINE HCL 25 MG SUPP 1 po q 8 hrs prn PROMETHAZINE HCL [id number] Vicky Arevalo LPN raNITIdine 150 mg oral tablet (4 sources) Histamine-2 Receptor Antagonist Start: 11-05-2014 take 1 tablet by mouth once daily ZANTAC 150 MG TABS One tablet by mouth daily RANITIDINE HCL [id number] Kristyn Leblanc MD rosuvastatin calcium 5 mg [...] tablet by mouth twice daily SERTRALINE HCL [id number] Brain Jean MD Comment on above: new [...] TOPORAL 100 MG (2 sources) Start: 07-24-19 TOPORAL 100 MG twice daily TOPORAL 100 MG Mami Worthington LPN traMADol hydrochloride 50 mg oral tablet (5 sources) Opioid Agonist Start: 06-15-19 End: 03-04-19 take 50-100 mg by mouth every six hours as needed for pain Tramadol 50 mg Tablet Discontinued 50 - 100 mg PO EVERY 6 HOURS NEEDED as needed for Pain Score 4-10 42 7 0 June 15, 2023 12:00am March 04, 2024 3:51pm Status post revision of total replacement of right knee Presence of right artificial knee joint vancomycin 125 mg oral capsule (20 sources) Glycopeptide Antibacterial Start: 11-27-19 13 End: 11-06-19 15 take 1 tablet by mouth once daily VANCOMYCIN HCL 125 MG CAPS One tablet by mouth daily VANCOMYCIN HCL [id number] Silvia Mccarthy MD Start: 09-21-2012 End: 11-16-2012 Start: 09-21-2012 End: 11-16-2012 Comment on above: Dr. Mccarthy 24 hr venlafaxine 37.5 mg extended release oral capsule (20 sources) Serotonin and Norepinephrine Reuptake Inhibitor Start: 03-28-19 End: 04-27-19 25 take 1 capsule by [...] ago now reoccured again after using old [place] no know cuase. will check rheum labs send to [facility] consider Dr. gaviria in [place]. zyretic 10 mg bid steriods.pepcid 10 mg [...] Impaired fasting glucose; Translations: [Impaired fasting glycaemia] Onset: 5 11-15-2017 Episodic Disorders of lipid metabolism (20 [...] 05-13-2013 Episodic Gout and other crystal arthropathies (12 sources) Chondrocalcinosis of knee joint; Translations: [Other [...] with reflux t reament--stress negative, heart cath 4-13 clear. Nutritional deficiencies (20 sources) Vitamin D [...] top keep wick in see monday Osteoarthritis (11 sources) Osteoarthritis of knee; Translations: [Osteoarthritis of knee, unspecified] Onset: 5 12-26-2012 Chronic Other circulatory disease (20 sources) Elevated blood-pressure reading without diagnosis of hypertension; Translations: [Elevated blood pressure (not hypertension)] Resolved: 0 01-06-2015 Episodic Other circulatory disease (20 sources) Elevated blood pressure; Translations: [Elevated blood pressure reading] Resolved: 2 08-13-2019 Episodic Other connective tissue disease (5 sources) History of revision of right total [...] has ongoing [facility] in [facility] Dr. Gibbs, [...] pain specialist, on gabapentin and hydrocodone from [facility] [address] Gibbs Other non-traumatic joint disorders [...] off. talk about try off once through [facility]. Spondylosis; intervertebral disc disorders; other back [...] bu Dr. gibbs her knee recommend pain Sprains and strains (14 sources) Lumbosacral strain; Translations: [Sprain of unspecified parts of lumbar spine and pelvis] Onset: 2 03-29-2011 Episodic Syncope (20 sources) Syncope Resolved: 9 02-03-2012 Thyroid disorders (20 sources) Hypothyroidism; Translations: [Hypothyroidism] Onset: 9 Resolved: 2 11-15-2017 Chronic Comment on above: good 1-14 Unclassified (20 sources) Influenza-like symptoms; Translations: [Edema] [...] Date Episodic/Chronic Acute and unspecified renal failure (7 sources) Acute renal failure syndrome; Translations: [Acute [...] (2 sources) Long-term drug therapy; Translations: [Other halfway (current) drug therapy] Onset: 11-13-2014 11-13-2014 Episodic [...] 09-28-2010 09-28-2010 Episodic Other non-traumatic joint disorders (8 sources) Pain in left shoulder; Translations: [Left shoulder pain] Onset: 03-28-2024 03-04-2024 Episodic Other non-traumatic joint disorders (11 sources) Pain in right knee; Translations: [Knee pain, right] 10-25-2018 Comment on above: chronic rt knee pain since replacement in 2012 now fell, sees pain specialist, on gabapentin and hydrocodone from [facility] [address] Gibbs Other nutritional; [...] of right hip] Onset: 03-29-2011 03-29-2011 Episodic Syncope (20 sources) Syncope and collapse; Translations: [Syncope, cardiogenic] Onset: 09-28-2010 Resolved: 11-15-2016 11-15-2016 Episodic Comment on above: stable Unclassified (20 sources) DEFICIENCY, VITAMIN D NOS [...] Test Name Value Interpretation Reference Range Facility Cardiology Visit Reporton Cardiology Visit Report [facility] [address] [place], [place] [address] OFFICE VISIT Date of Service: 10/29/24 MR#: [id number] Acct: [id number] Name: HANNAH LIGHT Rep #: [id number] : 1950 Provider: PRETTY Del Angel Age/Sex: 74/F [place] [facility] [place]: Signed HPI HPI History of Present Illness Details: Hannah Light is a 74-year-old female that presents here today for a cardiovascular follow-up. She was diagnosed with vasovagal syncope, hypertension and hyperlipidemia. Echocardiogram done in March 2024 demonstrated an ejection fraction of 60%. Pt notes that she continues to have positional dizziness. This is not any better than before. She has not had any further syncope. She does not have any chest pain. She does get SOB with activity but does not feel that this is worse. BP at home are the same. She did not tolerate losartan. In the past she notes that she was tolerated Benicar. Intake Vital Signs 04/26/24 15:28 10/29/24 15:01 Height 5 ft 3 in 5 ft 3 in Weight: 174 lb 176 lb BMI 30.8 31.1 BP 145/83 H 181/83 H Blood Pressure Location Lt brachial Lt brachial Position Sitting Sitting Respiration 18 16 Pulse 87 85 Pulse Source Monitor Monitor Pulse Oximetry (%) 96 Oxygen Delivery Method room air Intake Visit Reasons: 6 M FU Lacing Presser Required: No Accompanied by: Self Is patient in pain?: No Allergies albuterol Allergy (Verified 10/29/24 15:05) Swelling lidocaine (From Lidoderm) Allergy (Verified 10/29/24 15:05) Hives losartan Adverse Reaction (Intermediate, Verified 10/29/24 15:24) Nausea Medications ???Medication ???Instructions ???Recorded ???Confirmed ???Type ergocalciferol (vitamin D2) 1,250 50,000 unit PO .2X WEEK SUPPLEMEN T 05/31/23 10/29/24 History mcg (50,000 unit) capsule (Vitamin D2) ferrous sulfate 325 mg (65 mg 325 mg PO .QOD SUPPLEMENT 05/31/23 10/29/24 History iron) tablet lorazepam 0.5 mg tablet 0.5 mg PO BID PRN anxiety 03/28/24 10/29/24 History meclizine 25 mg tablet 25 mg PO 4X/DAY PRN dizziness /08/1410/29/24 History pantoprazole 40 mg tablet,delayed 40 mg PO QDAY 03/28/24 10/29/24 H istory release aspirin 81 mg chewable tablet 81 mg PO DAILY 04/01/24 10/29/24 H istory alendronate 70 mg tablet 70 mg PO QWEEK bone 04/26/2410/29 History amlodipine 10 mg tablet 10 mg PO QDAY 10/29/24 10/29/24 Hi story carvedilol 25 mg tablet 25 mg PO BID #180 tabs 10/29/24 Rx levothyroxine 175 mcg tablet 175 mcg PO QDAY 10/29/24 10/29/24 History Have you fallen in the past year?: No PFSH Medical History Anxiety Arthritis Back pain Cardiology follow-up encounter Depression Gastric reflux GERD (gastroesophageal reflux disease) High cholesterol History of Clostridium difficile infection History of hiatal hernia History of pain when walking History of steroid therapy Hypertension Injury of head and neck Left shoulder pain Migraine Neurocardiogenic syncope Non-smoker Post-menopausal Primary osteoarthritis, left shoulder Rheumatoid arthritis Shortness of breath on exertion Thyroid disease Wears glasses Surgical History History of carpal tunnel surgery of right wrist History of hip replacement History of laparoscopic cholecystectomy Hx of appendectomy Hx of arthroscopic knee surgery Hx of surgical procedure Hx of tubal ligation Total knee replacement status Family History Brother Kidney disease Myocardial infarction Brother CAD (coronary artery disease) Myocardial infarction Mother Hypertension Thyroid disorder Father Brain aneurysm Myocardial infarction Other Heart disease Social History household members: spouse Smoking Status: Former smoker alcohol intake: never substance use type: does not use ROS Const Const: Positive for fatigue; Negative for weakness, headache(s), daytime sleepiness or difficulty sleeping ENT ENT: Positive for dizziness (mostly with position changes) and balance problems; Negative for headache(s) or Nosebleed/epistaxis Cardio Chest Pain: No Palpitations: Yes (once in awhile) Edema: None Resp Respiratory: Positive for SOB with activity; Negative for SOB at rest, SOB orthopnea SOB lying down or Cough GI GI: Negative nausea, vomiting or heartburn Musc Musc: Positive for balance problems Neuro Neuro: Positive for dizziness (mostly with position changes), lightheadedness and near syncope; Negative for headache(s) or weakness Endo Endo: Positive for fatigue Cardiology Exam Con (more content not included)... Normal [facility] Absolute lymphocyte countOrd ered By: Mayra Gregg on 08-20-2024 Lymphocytes Auto (Unsp spec) [#/Vol] 1.93 10*3/uL 0.83-4.51 [facility] Absolute neutrophil countOrd ered By: Mayra Escobedo on 08-20-2024 Neutrophils (Bld) [#/Vol] 3.1 10*3/uL 2.0-7.7 [facility] Anion gap in Serum or Plasma Ordered By: Mayra Escobedo on 08-20-2024 Anion gap [Moles/Vol] 9 mmol/L 5- [facility] Automated lymphocyte count a s percentage of total leukocytesOrdered By: Mayra Escobedo on 08-20-2024 Lymphocytes/100 WBC Auto (Unsp spec) 32.9 % - [facility] BUN/creatinine ratioOrdered By: Mayra Escobedo on 08-20-2024 Urea nitrogen/Creatinine [Mass ratio] 19.1 mg/mg 10- [facility] Basophil percentageOrdered B y: Mayra Escobedo on 08-20-2024 Basophils/100 WBC (Bld) 0.5 % 0- [facility] Bilirubin, totalOrdered By: Mayra Escobedo on 08-20-2024 Bilirubin [Mass/Vol] 0.29 mg/dL 0.00-1.30 [facility] CBC W/Diff, Automatedon Absolute Lymph 1.93 X10 3/uL Normal 0.83-4.51 [facility] Comment on above: Performed By: #### L 400.0100, L100.0200, L500.2900 #### [facility] [address] [place], [address] Absolute Neut 3.1 X10 3/uL Normal 2.0-7.7 [facility] Comment on above: Performed By: #### L 400.0100, L100.0200, L500.2900 #### [facility] [address] [place], [address] Basophils/100 WBC (Bld) 0.5 % Normal 0-1 [facility] Comment on above: Performed By: #### L 400.0100, L100.0200, L500.2900 #### [facility] [address] [place], [address] Eosinophils/100 WBC (Bld) 2.2 % Normal 0-5 [facility] Comment on above: Performed By: #### L 400.0100, L100.0200, L500.2900 #### [facility] [address] [place], [address] Erythrocyte distribution width (RBC) [Ratio] 12.4 % Normal 11.6-14.6 [facility] Comment on above: Performed By: #### L 400.0100, L100.0200, L500.2900 #### [facility] [address] [place], [address] Hematocrit (Bld) [Volume fraction] 40.7 % Normal 37-47 [facility] Comment on above: Performed By: #### L 400.0100, L100.0200, L500.2900 #### [facility] [address] [place], [address] Hemoglobin (Bld) [Mass/Vol] 13.3 g/dL Normal 12.0-15.0 [facility] Comment on above: Performed By: #### L 400.0100, L100.0200, L500.2900 #### [facility] [address] [place], [address] IG% 0.700 Normal 0.0-0.9 [facility] Comment on above: Result Comment: IG% - Immature Granulocytes (promyelocytes, myelocytes and metamyelocytes) > 1% indicates that a LEFT SHIFT is Present. Performed By: #### L 400.0100, L100.0200, L500.2900 #### [facility] [address] [place], [address] Lymphocytes/100 WBC (Bld) 32.9 % Normal 19-41 [facility] Comment on above: Performed By: #### L 400.0100, L100.0200, L500.2900 #### [facility] [address] [place], [address] MCH (RBC) [Entitic mass] 29.8 pg Normal 27.0-32.0 [facility] Comment on above: Performed By: #### L 400.0100, L100.0200, L500.2900 #### [facility] [address] [place], [address] MCHC (RBC) [Mass/Vol] 32.7 g/dL Normal 32-36 [facility] Comment on above: Performed By: #### L 400.0100, L100.0200, L500.2900 #### [facility] [address] [place], [address] MCV (RBC) [Entitic vol] 91.1 fL Normal 81-99 [facility] Comment on above: Performed By: #### L 400.0100, L100.0200, L500.2900 #### [facility] [address] [place], [address] Monocytes/100 WBC (Bld) 11.3 % High 0-10 [facility] Comment on above: Performed By: #### L 400.0100, L100.0200, L500.2900 #### [facility] [address] [place], [address] Neutrophils/100 WBC (Bld) 52.4 % Normal 47-70 [facility] Comment on above: Performed By: #### L 400.0100, L100.0200, L500.2900 #### [facility] [address] [place], [address] Nucleated RBC (Bld) [#/Vol] 0 10*3/uL Normal 0-5 [facility] Comment on above: Performed By: #### L 400.0100, L100.0200, L500.2900 #### [facility] [address] [place], [address] Platelet mean volume (Bld) [Entitic vol] 11.1 fL Normal 6.2-12.0 [facility] Comment on above: Performed By: #### L 400.0100, L100.0200, L500.2900 #### [facility] [address] [place], [address] Platelets (Bld) [#/Vol] 222 10*3/uL Normal 150-450 [facility] Comment on above: Performed By: #### L 400.0100, L100.0200, L500.2900 #### [facility] [address] [place], [address] RBC (Bld) [#/Vol] 4.47 10*6/uL Normal 4.2-5.4 [facility] Comment on above: Performed By: #### L 400.0100, L100.0200, L500.2900 #### [facility] [address] [place], [address] RDW SD 41.6 fl Normal 35.1-43.9 [facility] Comment on above: Performed By: #### L 400.0100, L100.0200, L500.2900 #### [facility] [address] [place], [address] WBC (Bld) [#/Vol] 5.9 10*3/uL Normal 4.4-11.[address] [facility] Comment on above: Performed By: #### L 400.0100, L100.0200, L500.2900 #### [facility] [address] [place], [address] Calculated very low density lipoprotein (VLDL) cholesterol measurementOrdered By: Mayra Escobedo on 08-20-2024 Calculated very low density lipoprotein (VLDL) cholesterol measurement 14 mg/dL 5-40 [facility] Carbon dioxide, total [Moles /volume] in Central venous bloodOrdered By: Mayra Escobedo on 08-20-2024 CO2 [Moles/Vol] 24.3 mmol/L 21.0-32.0 [facility] Chloride assayOrdered By: Leonor Escobedo on 08-20-2024 Chloride [Moles/Vol] 103 mmol/L 98-108 [facility] Comprehensive Metabolic Prof ilon 08-20-2024 Albumin [Mass/Vol] 4.2 g/dL Normal 3.4-4.[address] [facility] Comment on above: Performed By: #### L 400.0100, L100.0200, L500.2900 #### [facility] [address] [place], [address] Albumin/Globulin [Mass ratio] 1.7 {ratio} Normal 0.9-2.4 [facility] Comment on above: Performed By: #### L 400.0100, L100.0200, L500.2900 #### [facility] [address] [place], [address] ALK PHOS 80 U/L Normal 35-104 [facility] Comment on above: Performed By: #### L 400.0100, L100.0200, L500.2900 #### [facility] [address] [place], [address] ALT [Catalytic activity/Vol] 15 U/L Normal <=34 [facility] Comment on above: Performed By: #### L 400.0100, L100.0200, L500.2900 #### [facility] [address] [place], [address] AST [Catalytic activity/Vol] 17 U/L Normal <=31 [facility] Comment on above: Performed By: #### L 400.0100, L100.0200, L500.2900 #### [facility] [address] [place], [address] Bilirubin [Mass/Vol] 0.29 mg/dL Normal 0.00-1.30 [facility] Comment on above: Performed By: #### L 400.0100, L100.0200, L500.2900 #### [facility] [address] [place], [address] BUN/CRE 19.1 RATIO Normal 10-20 [facility] Comment on above: Performed By: #### L 400.0100, L100.0200, L500.2900 #### [facility] [address] [place], [address] Calcium [Mass/Vol] 9.3 mg/dL Normal 7.6-11.[address] [facility] Comment on above: Performed By: #### L 400.0100, L100.0200, L500.2900 #### [facility] [address] [place], [address] Chloride [Moles/Vol] 103 mmol/L Normal 98-108 [facility] Comment on above: Performed By: #### L 400.0100, L100.0200, L500.2900 #### [facility] [address] [place], [address] CO2 [Moles/Vol] 24.3 mmol/L Normal 21.0-32.0 [facility] Comment on above: Performed By: #### L 400.0100, L100.0200, L500.2900 #### [facility] [address] [place], [address] Creatinine [Mass/Vol] 0.98 mg/dL Normal 0.70-1.20 [facility] Comment on above: Performed By: #### L 400.0100, L100.0200, L500.2900 #### [facility] [address] [place], [address] GAP 9 Normal 5-15 [facility] Comment on above: Performed By: #### L 400.0100, L100.0200, L500.2900 #### [facility] [address] [place], [address] GFR/1.73 sq M.predicted among non-blacks MDRD (S/P/Bld) [Vol rate/Area] 60 mL/min/{1.73_m2} Normal >60 [facility] Comment on above: Result Comment: mL/m in/1.73m2 CKD-EPI Creatinine Equation (2020) Performed By: #### L 400.0100, L100.0200, L500.2900 #### [facility] [address] [place], [address] Globulin (S) [Mass/Vol] 2.5 g/dL Normal 2.2-4.2 [facility] Comment on above: Performed By: #### L 400.0100, L100.0200, L500.2900 #### [facility] [address] [place], [address] Glucose [Mass/Vol] 100 mg/dL High 70-[address] [facility] Comment on above: Performed By: #### L 400.0100, L100.0200, L500.2900 #### [facility] [address] [place], [address] Potassium [Moles/Vol] 5.2 mmol/L High 3.3-5.1 [facility] Comment on above: Performed By: #### L 400.0100, L100.0200, L500.2900 #### [facility] [address] [place], [address] Sodium [Moles/Vol] 136 mmol/L Normal 133-[address] [facility] Comment on above: Performed By: #### L 400.0100, L100.0200, L500.2900 #### [facility] [address] [place], [address] T PROT 6.7 g/dL Normal 5.9-8.4 [facility] Comment on above: Performed By: #### L 400.0100, L100.0200, L500.2900 #### [facility] [address] [place], [address] Urea nitrogen [Mass/Vol] 19 mg/dL Normal 4-19 [facility] Comment on above: Performed By: #### L 400.0100, L100.0200, L500.2900 #### [facility] [address] [place], [address] Eosinophil percentageOrdered By: Mayra Escobedo on 08-20-2024 Eosinophils/100 WBC (Bld) 2.2 % 0-5 [facility] Erythrocyte distribution wid th ratioOrdered By: Mayra Escobedo on 08-20-2024 Erythrocyte distribution width (RBC) [Ratio] 12.4 % 11.6-14.6 [facility] Erythrocyte distribution wid th standard deviationOrdered By: Mayra Escobedo on 08-20-2024 Erythrocyte distribution width (RBC) [Ratio] 41.6 fl 35.1-43.9 [facility] Glomerular filtration rate ( GFR) estimation/1.73 sq m using serum, plasma, or whole bOrdered By: Mayra Escobedo on 08-20-2024 GFR/1.73 sq M.predicted among non-blacks MDRD (S/P/Bld) [Vol rate/Area] 60 mL/min/{1.73_m2} >60 [facility] Comment on above: mL/min/1.73m2 CKD-EP I Creatinine Equation (2020) Hematocrit Auto (Bld) [Volum e fraction]Ordered By: Mayra Escobedo on 08-20-2024 Hematocrit (Bld) [Volume fraction] 40.7 % 37-47 [facility] Hemoglobin A1con 08-20-2024 HbA1c (Bld) [Mass fraction] 5.6 % Normal <=5.6 [facility] Comment on above: Result Comment: Norm al < 5.7 % Prediabetic 5.7 - 6.4 % Diabetic >or= 6.5 % Please note range changes. Performed By: #### L 400.0100, L100.0200, L500.2900 #### [facility] [address] [place], [place], [id number] Hemoglobin A1c percentageOrd ered By: Mayra Escobedo on 08-20-2024 HbA1c (Bld) [Mass fraction] 5.6 % <5.7 [facility] Comment on above: Normal < 5.7 % Predi abetic 5.7 - 6.4 % Diabetic >or= 6.5 % Please note range changes. Hemoglobin measurementOrdere d By: Mayra Escobedo on 08-20-2024 Hemoglobin (Bld) [Mass/Vol] 13.3 g/dL 12.0-15.0 [facility] Immature granulocytes/100 WB C Auto (Bld)Ordered By: Mayra Escobedo on 08-20-2024 Immature granulocytes/100 WBC (Bld) 0.700 % 0.0-0.9 [facility] Comment on above: IG% - Immature Granu locytes (promyelocytes, myelocytes and metamyelocytes) > 1% indicates that a LEFT SHIFT is Present. LDL calc ser/plasOrdered By: Mayra Escobedo on 08-20-2024 Cholesterol in LDL [Mass/Vol] 166 mg/dL [facility] Comment on above: Pvnvmvuhae=475-044 m g/dL & Higher Iqgt=502 mg/dL or greater Laboratory - Chemistry and C hemistry - challengeOrdered By: Mayra Escobedo on 08-20-2024 AST [Catalytic activity/Vol] 17 U/L <32 [facility] Lipid Profileon 08-20-2024 CHOL:HDL 3.70 Normal [facility] Comment on above: Performed By: #### L 400.0100, L100.0200, L500.2900 #### [facility] [address] [place], [place], [id number] Cholesterol [Mass/Vol] 247 mg/dL High <=200 [facility] Comment on above: Result Comment: Chol esterol level, Desirable <200 mg/dL Borderline high cholesterol 200-239 mg/dL High cholesterol >=240 mg/dL Recommendations of the NCEP Adult Treatment Panel for the following risk-cutoff thresholds for the [place] Stateless population. Performed By: #### L 400.0100, L100.0200, L500.2900 #### [facility] [address] [place], [address] Cholesterol in HDL [Mass/Vol] 67 mg/dL Normal [facility] Comment on above: Result Comment: Yara onal Cholesterol Education Program (NCEP) guidelines: <40 mg/dL: Low HDL-cholesterol (major risk factor for CHD) >= 60 mg/dL: High HDL-cholesterol (negative risk factor for CHD) HDL-cholesterol is affected by a number of factors, e.g. smoking, exercise, hormones, sex and age. Performed By: #### L 400.0100, L100.0200, L500.2900 #### [facility] [address] [place], [address] Cholesterol in LDL [Mass/Vol] 166 mg/dL Normal [facility] Comment on above: Result Comment: Bord qccikf=022-768 mg/dL Higher Pzlm=985 mg/dL or greater Performed By: #### L 400.0100, L100.0200, L500.2900 #### [facility] [address] [place], [address] Cholesterol in VLDL [Mass/Vol] 14 mg/dL Normal 5-40 [facility] Comment on above: Performed By: #### L 400.0100, L100.0200, L500.2900 #### [facility] [address] [place], [address] Triglyceride [Mass/Vol] 72 mg/dL Normal [facility] Comment on above: Result Comment: The drugs N-Acetylcysteine and Metamizole may falsely depress this assay. Normal range: <150 mg/dL Borderline High: 150-199 mg/dL High: 200-499 mg/dL Very High: >500 mg/dL Performed By: #### L 400.0100, L100.0200, L500.2900 #### [facility] [address] [place], [place], [id number] MCV (mean corpuscular volume ) determinationOrdered By: Mayra Escobedo on 08-20-2024 MCV (RBC) [Entitic vol] 91.1 fL 81-99 [facility] Mean corpuscular hemoglobin (MCH) determinationOrdered By: Mayra Escobedo on 08-20-2024 MCH (RBC) [Entitic mass] 29.8 pg 27.0-32.0 [facility] Mean corpuscular hemoglobin concentration (MCHC) determinationOrdered By: Mayra Escobedo on 08-20-2024 MCHC (RBC) [Mass/Vol] 32.7 g/dL 32-36 [facility] Mean platelet volume determi nationOrdered By: Mayra Escobedo on 08-20-2024 Platelet mean volume (Bld) [Entitic vol] 11.1 fL 6.2-12.0 [facility] Microalb:Creat Ratio,Random URon 08-20-2024 Creatinine [Mass/Vol] 71.00 mg/dL Normal 28.00- 217. 00 [facility] Comment on above: Performed By: #### L 400.0100, L100.0200, L500.2900 #### [facility] [address] [place], [place], [id number] MALB:CREAT UNABLE TO CALCULATE Normal [facility] Comment on above: Performed By: #### L 400.0100, L100.0200, L500.2900 #### [facility] [address] [place], [place], [id number] MICROALBUMIN,UR < 12.0 Normal NO RANGE EST. [facility] Comment on above: Performed By: #### L 400.0100, L100.0200, L500.2900 #### [facility] [address] [place], [address] Microalbumin/creat ratio urO rdered By: Mayra Escobedo on 08-20-2024 Urine microalbumin/creatinin e ratio measurement UNABLE TO CALCULATE mg/g CRE [facility] Monocyte percentageOrdered B y: Mayra Escobedo on 08-20-2024 Monocytes/100 WBC (Bld) 11.3 % High 0-10 [facility] Neutrophil percentageOrdered By: Mayra Escobedo on 08-20-2024 Neutrophils/100 WBC (Bld) 52.4 % 47-70 [facility] Nucleated red blood cell per centageOrdered By: Mayra Escobedo on 08-20-2024 Nucleated RBC/100 WBC (Bld) [Ratio] 0 % 0-5 [facility] Platelet countOrdered By: Leonor Escobedo on 08-20-2024 Platelets (Bld) [#/Vol] 222 10*3/uL 150-450 [facility] Potassium measurement (mass/ volume)Ordered By: Mayra Escobedo on 08-20-2024 Potassium (Unsp spec) [Mass/Vol] 5.2 mmol/L High 3.3-5.1 [facility] RBC Auto (Bld) [#/Vol]Ordere d By: Mayra Escobedo on 08-20-2024 RBC (Bld) [#/Vol] 4.47 10*6/uL 4.2-5.4 [facility] Random urine creatinine josh urement (mass/volume)Ordered By: Mayra Escobedo on 08-20-2024 Creatinine Unsp time (U) [Mass/Vol] 71.00 mg/dL 28.00-217. 00 [facility] Screening total cholesterol/ high density lipoprotein (HDL) cholesterol ratioOrdered By: Mayra Escobedo on 08-20-2024 Cholesterol.total/Chol esterol in HDL [Mass ratio] 3.70 {ratio} [facility] Serum creatinine measurement (mass/volume)Ordered By: Mayra Escobedo on 08-20-2024 Creatinine [Mass/Vol] 0.98 mg/dL 0.70-1.20 [facility] Serum globulin measurementOr dered By: Mayra Escobedo on 08-20-2024 Globulin (S) [Mass/Vol] 2.5 g/dL 2.2-4.2 [facility] Serum glucose measurement (m ass/volume)Ordered By: Mayra Escobedo on 08-20-2024 Glucose [Mass/Vol] 100 mg/dL High 70-[address] [facility] Serum or plasma alanine larson otransferase (ALT) measurementOrdered By: Mayra Escobedo on 08-20-2024 ALT [Catalytic activity/Vol] 15 U/L <35 [facility] Serum or plasma albumin josh urement (mass/volume)Ordered By: Mayra Escobedo on 08-20-2024 Albumin [Mass/Vol] 4.2 g/dL 3.4-4.[address] [facility] Serum or plasma albumin/glob ulin mass ratioOrdered By: Mayra Escobedo on 08-20-2024 Albumin/Globulin [Mass ratio] 1.7 {ratio} 0.9-2.4 [facility] Serum or plasma alkaline sumeet sphatase measurementOrdered By: Mayra Escobedo on 08-20-2024 ALP [Catalytic activity/Vol] 80 U/L 35-104 [facility] Serum or plasma calcium josh urement (mass/volume)Ordered By: Mayra Escobedo on 08-20-2024 Calcium [Mass/Vol] 9.3 mg/dL 7.6-11.[address] [facility] Serum or plasma cholesterol in HDL measurement (mass/volume)Ordered By: Mayra Escobedo on 08-20-2024 Cholesterol in HDL [Mass/Vol] 67 mg/dL >40 [facility] Comment on above: National Cholesterol Education Program (NCEP) guidelines:<40 mg/dL: Low HDL-cholesterol (major risk factor for CHD)>= 60 mg/dL: High HDL-cholesterol (negative risk factor for CHD)HDL-cholesterol is affected by a number of factors, e.g. smoking, exercise, hormones, sex and age. Serum or plasma cholesterol measurement (mass/volume)Ordered By: Mayra Escobedo on 08-20-2024 Cholesterol [Mass/Vol] 247 mg/dL High <201 [facility] Comment on above: Cholesterol level, D esirable <200 mg/dLBorderline high cholesterol 200-239 mg/dLHigh cholesterol >=240 mg/dLRecommendations of the NCEP Adult Treatment Panel for the following risk-cutoff thresholds for the [place] Stateless population. Serum or plasma urea nitroge n measurement (mass/volume)Ordered By: Mayra Escobedo on 08-20-2024 Urea nitrogen [Mass/Vol] 19 mg/dL 4-19 [facility] Sodium levelOrdered By: Elmira Escobedo on 08-20-2024 Sodium [Moles/Vol] 136 mmol/L 133-[address] [facility] TSH DL <= 0.005 mIU/L QnOrde red By: Mayra Escobedo on 08-20-2024 TSH Qn 11.100 uIU/mL High 0.300-4.20 0 [facility] Thyroid Stim Hormone (TSH)on 08-20-2024 TSH 11.100 uIU/mL High 0.300-4.20 0 [facility] Comment on above: Performed By: #### L 400.0100, L100.0200, L500.2900 #### [facility] [address] [place], [place] [address] [place], [place], [address] Total proteinOrdered By: Adrián Escobedo on 08-20-2024 Protein [Mass/Vol] 6.7 g/dL 5.9-8.[address] [facility] Triglycerides measurementOrd ered By: Mayra Escobedo on 08-20-2024 Triglyceride [Mass/Vol] 72 mg/dL <199 [facility] Comment on above: The drugs N-Acetylcy steine and Metamizole may falsely depress this assay. Normal range: <150 mg/dLBorderline High: 150-199 mg/dLHigh: 200-499 mg/dLVery High: >500 mg/dL Urine albumin measurement wi detection limit of 20 mg/L or less (mass/volume)Ordered By: Mayra Escobedo on 08-20-2024 Albumin DL <= 20 mg/L (U) [Mass/Vol] < 12.0 mg/L NO RANGE EST. [facility] White blood cell (WBC) count Ordered By: Mayra Escobedo on 08-20-2024 WBC (Bld) [#/Vol] 5.9 10*3/uL 4.4-11.[address] [facility] Vitamin D,25 Hydroxyon 05-13 -2025 Vitamin D 25-OH 26.3 ng/mL Low 30-100 [facility] Comment on above: Result Comment: Jackie min D Status Deficiency: <20 ng/mL (50nmol/L) Insufficiency: 20-30 ng/mL (50-75 nmol/L) Sufficiency: 30-100 ng/mL (75-250 nmol/L) Toxicity: >100 ng/mL (>250 nmol/L) Performed By: #### L 400.0100, L100.0200, L500.2900 #### [facility] [address] [place], [address] PT D/C Summary (1)on 025 PT D/C Summary (1) [facility] Physical Therapy [facility] [address] [place] [address] / REHABILITATION SERVICES DISCHARGE SUMMARY MR#: [id number] Acct: [id number] Name: HANNAH LIGHT Rep #: [id number] : 1950 74 From: Rory Forrest PT, Cert. MD Peterson, OCS Referring Dr.: REBECCA Escobedo Status: REG RCR Insurance: [employer]/[facility] SELF PAY INSURANCE Discharge Summary D/C [...] please feel free to call me at [phone]. Thank you for the referral of this patient. 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, [address] Cardiology Visit Reporton Cardiology Visit Report [facility] [address] [place] [address] OFFICE VISIT Date of Service: 04/26/24 MR#: [id number] Acct: [id number] Name: LIGHTHANNAH Rep #: [id number] : 1950 Provider: Dr. 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 Patient been previously evaluated and treated by Dr. Kristny Leblanc for neurocardiogenic syncope. She reports that [...] air Intake Visit Reasons: Dizziness/Giddiness/Ligh theaded (Self) Lacing Presser Required: No Accompanied by: Self Is patient [...] tablet 25 mg PO 4X/DAY PRN dizziness 02/0 08/1404/26/24 History pantoprazole 40 mg tablet,delayed 40 [...] you fallen in the past year?: No [facility] Medical History (Updated 04/26/24 @ 16:[address] Jose Miguel Eng MD) Migraine Neurocardiogenic syncope GERD (gastroesophageal reflux disease) Primary osteoarthritis, left shoulder Left shoulder pain Wears glasses Post-menopausal History of Clostridium difficile infection Depression Anxiety History of steroid therapy Thyroid disease Rheumatoid arthritis Arthritis High cholesterol Back (more content not included)... Normal [facility] Absolute lymphocyte countOrd ered By: Chelsea Kaufman on 04-02-2024 Lymphocytes Auto (Unsp spec) [#/Vol] 2.27 10*3/uL 0.83-4.51 [facility] Absolute neutrophil countOrd ered By: Chelsea Kaufman on 04-02-2024 Neutrophils (Bld) [#/Vol] 3.1 10*3/uL 2.0-7.7 [facility] Albumin to globulin ratioOrd ered By: Chelsea Kaufman on 04-02-2024 Albumin/Globulin [Mass ratio] 1.2 {ratio} 0.9-2.4 [facility] Automated lymphocyte count a s percentage of total leukocytesOrdered By: Chelsea Kaufman on 04-02-2024 Lymphocytes/100 WBC Auto (Unsp spec) 37.2 % 19-41 [facility] Basophil percentageOrdered B y: Chelsea Kaufman on 04-02-2024 Basophils/100 WBC (Bld) 0.3 % 0-1 [facility] Bilirubin, totalOrdered By: Chelsea Kaufman on 04-02-2024 Bilirubin [Mass/Vol] 0.50 mg/dL 0.20-1.00 [facility] Comment on above: For patients on eltr ombopag therapy, use of Dimension [place] TBIL is not recommended. Blood urea nitrogen (BUN)/cr eatinine ratioOrdered By: Chelsea Kaufman on 04-02-2024 Urea nitrogen/Creatinine [Mass ratio] 16.6 mg/mg 10-20 [facility] CBC W/Diff, Automatedon 03-23 Absolute Lymph 2.27 X10 3/uL Normal 0.83-4.51 [facility] Comment on above: Performed By: #### L 400.0100, L100.0200, L500.2900 #### [facility] [address] [place], [address] Absolute Neut 3.1 X10 3/uL Normal 2.0-7.7 [facility] Comment on above: Performed By: #### L 400.0100, L100.0200, L500.2900 #### [facility] [address] [place], [address] Basophils/100 WBC (Bld) 0.3 % Normal 0-1 [facility] Comment on above: Performed By: #### L 400.0100, L100.0200, L500.2900 #### [facility] [address] [place], [address] Eosinophils/100 WBC (Bld) 1.6 % Normal 0-5 [facility] Comment on above: Performed By: #### L 400.0100, L100.0200, L500.2900 #### [facility] [address] [place], [address] Erythrocyte distribution width (RBC) [Ratio] 12.7 % Normal 11.6-14.6 [facility] Comment on above: Performed By: #### L 400.0100, L100.0200, L500.2900 #### [facility] [address] [place], [address] Hematocrit (Bld) [Volume fraction] 37.2 % Normal 37-47 [facility] Comment on above: Performed By: #### L 400.0100, L100.0200, L500.2900 #### [facility] [address] [place], [address] Hemoglobin (Bld) [Mass/Vol] 12.2 g/dL Normal 12.0-15.0 [facility] Comment on above: Performed By: #### L 400.0100, L100.0200, L500.2900 #### [facility] [address] [place], [address] IG% 0.300 Normal 0.0-0.9 [facility] Comment on above: Result Comment: IG% - Immature Granulocytes (promyelocytes, myelocytes and metamyelocytes) > 1% indicates that a LEFT SHIFT is Present. Performed By: #### L 400.0100, L100.0200, L500.2900 #### [facility] [address] [place], [address] Lymphocytes/100 WBC (Bld) 37.2 % Normal 19-41 [facility] Comment on above: Performed By: #### L 400.0100, L100.0200, L500.2900 #### [facility] [address] [place], [address] MCH (RBC) [Entitic mass] 29.4 pg Normal 27.0-32.0 [facility] Comment on above: Performed By: #### L 400.0100, L100.0200, L500.2900 #### [facility] [address] [place], [address] MCHC (RBC) [Mass/Vol] 32.8 g/dL Normal 32-36 [facility] Comment on above: Performed By: #### L 400.0100, L100.0200, L500.2900 #### [facility] [address] [place], [address] MCV (RBC) [Entitic vol] 89.6 fL Normal 81-99 [facility] Comment on above: Performed By: #### L 400.0100, L100.0200, L500.2900 #### [facility] [address] [place], [address] Monocytes/100 WBC (Bld) 10.6 % High 0-10 [facility] Comment on above: Performed By: #### L 400.0100, L100.0200, L500.2900 #### [facility] [address] [place], [address] Neutrophils/100 WBC (Bld) 50.0 % Normal 47-70 [facility] Comment on above: Performed By: #### L 400.0100, L100.0200, L500.2900 #### [facility] [address] [place], [address] Nucleated RBC (Bld) [#/Vol] 0 10*3/uL Normal 0-5 [facility] Comment on above: Performed By: #### L 400.0100, L100.0200, L500.2900 #### [facility] [address] [place], [address] Platelet mean volume (Bld) [Entitic vol] 10.6 fL Normal 6.2-12.0 [facility] Comment on above: Performed By: #### L 400.0100, L100.0200, L500.2900 #### [facility] [address] [place], [address] Platelets (Bld) [#/Vol] 207 10*3/uL Normal 150-450 [facility] Comment on above: Performed By: #### L 400.0100, L100.0200, L500.2900 #### [facility] [address] [place], [address] RBC (Bld) [#/Vol] 4.15 10*6/uL Low 4.2-5.4 [facility] Comment on above: Performed By: #### L 400.0100, L100.0200, L500.2900 #### [facility] [address] [place], [address] RDW SD 41.7 fl Normal 35.1-43.9 [facility] Comment on above: Performed By: #### L 400.0100, L100.0200, L500.2900 #### [facility] [address] [place], [address] WBC (Bld) [#/Vol] 6.1 10*3/uL Normal 4.4-11.[address] [facility] Comment on above: Performed By: #### L 400.0100, L100.0200, L500.2900 #### [facility] [address] [place], [address] Carbon dioxide measurementOr dered By: Chelsea Kaufman on 04-02-2024 CO2 [Moles/Vol] 24.0 mmol/L 21.0-32.0 [facility] Chloride measurementOrdered By: Chelsea Kaufman on 04-02-2024 Chloride [Moles/Vol] 108 mmol/L High 98-107 [facility] Comprehensive Metabolic Prof ilon 04-02-2024 Albumin [Mass/Vol] 3.3 g/dL Normal 3.2-5.[address] [facility] Comment on above: Order Comment: Comme nts: NPO at [place] prior to lipid panel Performed By: #### L 400.0100, L100.0200, L500.2900 #### [facility] [address] [place], [address] Albumin/Globulin [Mass ratio] 1.2 {ratio} Normal 0.9-2.4 [facility] Comment on above: Order Comment: Comme nts: NPO at [place] prior to lipid panel Performed By: #### L 400.0100, L100.0200, L500.2900 #### [facility] [address] [place], [address] ALK P 59 U/L Normal 45-117 [facility] Comment on above: Order Comment: Comme nts: NPO at [place] prior to lipid panel Performed By: #### L 400.0100, L100.0200, L500.2900 #### [facility] [address] [place], [address] ALT [Catalytic activity/Vol] 23 U/L Normal 13-56 [facility] Comment on above: Order Comment: Comme nts: NPO at [place] prior to lipid panel Performed By: #### L 400.0100, L100.0200, L500.2900 #### [facility] [address] [place], [address] AST [Catalytic activity/Vol] 13 U/L Low 15-37 [facility] Comment on above: Order Comment: Comme nts: NPO at [place] prior to lipid panel Performed By: #### L 400.0100, L100.0200, L500.2900 #### [facility] [address] [place], [address] Bilirubin [Mass/Vol] 0.50 mg/dL Normal 0.20-1.00 [facility] Comment on above: Order Comment: Comme nts: NPO at MN prior to lipid panel Result Comment: For patients on eltrombopag therapy, use of Dimension [place] TBIL is not recommended. Performed By: #### L 400.0100, L100.0200, L500.2900 #### [facility] [address] [place], [address] BUN/CRE 16.6 RATIO Normal 10-20 [facility] Comment on above: Order Comment: Comme nts: NPO at MN prior to lipid panel Performed By: #### L 400.0100, L100.0200, L500.2900 #### [facility] [address] [place], [address] CA,Total 9.1 mg/dL Normal 8.5-10.1 [facility] Comment on above: Order Comment: Comme nts: NPO at [place] prior to lipid panel Performed By: #### L 400.0100, L100.0200, L500.2900 #### [facility] [address] [place], [address] Chloride [Moles/Vol] 108 mmol/L High 98-107 [facility] Comment on above: Order Comment: Comme nts: NPO at [place] prior to lipid panel Performed By: #### L 400.0100, L100.0200, L500.2900 #### [facility] [address] [place], [address] CO2 [Moles/Vol] 24.0 mmol/L Normal 21.0-32.0 [facility] Comment on above: Order Comment: Comme nts: NPO at [place] prior to lipid panel Performed By: #### L 400.0100, L100.0200, L500.2900 #### [facility] [address] [place], [address] Creatinine [Mass/Vol] 0.84 mg/dL Normal 0.55-1.02 [facility] Comment on above: Order Comment: Comme nts: NPO at [place] prior to lipid panel Result Comment: The validity of the calculated GFR GFRAA in patients over 70 years has not been determined. Clinical correlation is essential. Performed By: #### L 400.0100, L100.0200, L500.2900 #### [facility] [address] [place], [address] ECRCL 58.85 ml/min Normal [facility] Comment on above: Order Comment: Comme nts: NPO at [place] prior to lipid panel Performed By: #### L 400.0100, L100.0200, L500.2900 #### [facility] [address] [place], [address] EST GFR - AA 85 mL/min Normal >60 [facility] Comment on above: Order Comment: Comme nts: NPO at [place] prior to lipid panel Result Comment: Afri can Stateless GFR Calc Performed By: #### L 400.0100, L100.0200, L500.2900 #### [facility] [address] [place], [address] GAP 6 Normal 5-15 [facility] Comment on above: Order Comment: Comme nts: NPO at [place] prior to lipid panel Performed By: #### L 400.0100, L100.0200, L500.2900 #### [facility] [address] [place], [address] GFR/1.73 sq M.predicted among non-blacks MDRD (S/P/Bld) [Vol rate/Area] 70 mL/min/{1.73_m2} Normal >60 [facility] Comment on above: Order Comment: Comme nts: NPO at [place] prior to lipid panel Result Comment: Non- GFR Calc Performed By: #### L 400.0100, L100.0200, L500.2900 #### [facility] [address] [place], [address] Globulin (S) [Mass/Vol] 2.7 g/dL Normal 2.2-4.2 [facility] Comment on above: Order Comment: Comme nts: NPO at [place] prior to lipid panel Performed By: #### L 400.0100, L100.0200, L500.2900 #### [facility] [address] [place], [address] Glucose [Mass/Vol] 104 mg/dL Normal 74-[address] [facility] Comment on above: Order Comment: Comme nts: NPO at [place] prior to lipid panel Result Comment: Fast ing Glucose result from 100 to 125 mg/dL suggests IMPAIRED HOMEOSTASIS per A.D.A. criteria. Performed By: #### L 400.0100, L100.0200, L500.2900 #### [facility] [address] [place], [address] Potassium [Moles/Vol] 3.8 mmol/L Normal 3.5-5.1 [facility] Comment on above: Order Comment: Comme nts: NPO at [place] prior to lipid panel Performed By: #### L 400.0100, L100.0200, L500.2900 #### [facility] [address] [place], [address] Sodium [Moles/Vol] 138 mmol/L Normal 136-[address] [facility] Comment on above: Order Comment: Comme nts: NPO at [place] prior to lipid panel Performed By: #### L 400.0100, L100.0200, L500.2900 #### [facility] [address] [place], [address] T PROT 6.0 g/dL Low 6.4-8.2 [facility] Comment on above: Order Comment: Comme nts: NPO at [place] prior to lipid panel Performed By: #### L 400.0100, L100.0200, L500.2900 #### [facility] [address] [place], [address] Urea nitrogen [Mass/Vol] 14 mg/dL Normal 7-18 [facility] Comment on above: Order Comment: Comme nts: NPO at [place] prior to lipid panel Performed By: #### L 400.0100, L100.0200, L500.2900 #### [facility] [address] [place], [address] Eosinophil percentageOrdered By: Chelsea Kaufman on 04-02-2024 Eosinophils/100 WBC (Bld) 1.6 % 0-5 [facility] Erythrocyte distribution wid th ratioOrdered By: Chelsea Kaufman on 04-02-2024 Erythrocyte distribution width (RBC) [Ratio] 12.7 % 11.6-14.6 [facility] Erythrocyte distribution wid th standard deviationOrdered By: Chelsea Kaufman on 04-02-2024 Erythrocyte distribution width (RBC) [Ratio] 41.7 fl 35.1-43.9 [facility] Glomerular filtration rate ( GFR) estimationOrdered By: Chelsea Kaufman on 04-02-2024 GFR/1.73 sq M.predicted among non-blacks MDRD (S/P/Bld) [Vol rate/Area] 70 mL/min/{1.73_m2} >60 [facility] Comment on above: Non- GFR Calc Glucose measurementOrdered B y: Chelsea Kaufman on 04-02-2024 Glucose [Mass/Vol] 104 mg/dL 74-[address] [facility] Comment on above: Fasting Glucose resu lt from 100 to 125 mg/dL suggests IMPAIRED HOMEOSTASIS per A.D.A. criteria. Hematocrit Auto (Bld) [Volum e fraction]Ordered By: Chelsea Kaufman on 04-02-2024 Hematocrit (Bld) [Volume fraction] 37.2 % 37-47 [facility] Hemoglobin measurementOrdere d By: Chelsea Kaufman on 04-02-2024 Hemoglobin (Bld) [Mass/Vol] 12.2 g/dL 12.0-15.0 [facility] High density lipoprotein (HD L) measurementOrdered By: Chelsea Kaufman on 04-02-2024 Cholesterol in HDL [Mass/Vol] 64 mg/dL >40 [facility] Comment on above: The drugs N-Acetylcy steine and Metamizole may falsely depress this assay. Reference Range HDL <40 mg/dL Low HDL Cholesterol HDL >or= 60 mg/dL High HDL Cholesterol Immature granulocytes/100 WB C Auto (Bld)Ordered By: Chelsea Kaufman on 04-02-2024 Immature granulocytes/100 WBC (Bld) 0.300 % 0.0-0.9 [facility] Comment on above: IG% - Immature Granu locytes (promyelocytes, myelocytes and metamyelocytes) > 1% indicates that a LEFT SHIFT is Present. Laboratory - Chemistry and C hemistry - challengeOrdered By: Chelsea Kaufman on 04-02-2024 AST [Catalytic activity/Vol] 13 U/L Low 15-37 [facility] Lipid Profileon 04-02-2024 Cholesterol [Mass/Vol] 214 mg/dL High 200 [facility] Comment on above: Order Comment: Urine , Random Result Comment: <200 mg/dL Desirable 200-240 mg/dL Borderline >240 mg/dL High Risk Performed By: #### L 400.0100, L100.0200, L500.2900 #### [facility] [address] [place], [address] Cholesterol in HDL [Mass/Vol] 64 mg/dL Normal [facility] Comment on above: Order Comment: Urine , Random Result Comment: The drugs N-Acetylcysteine and Metamizole may falsely depress this assay. Reference Range HDL <40 mg/dL Low HDL Cholesterol HDL >or= 60 mg/dL High HDL Cholesterol Performed By: #### L 400.0100, L100.0200, L500.2900 #### [facility] [address] [place], [address] Cholesterol in LDL [Mass/Vol] 134 mg/dL High 0-130 [facility] Comment on above: Order Comment: Urine , Random Performed By: #### L 400.0100, L100.0200, L500.2900 #### [facility] [address] [place], [address] Cholesterol in VLDL [Mass/Vol] 16 mg/dL Normal 5-40 [facility] Comment on above: Order Comment: Urine , Random Performed By: #### L 400.0100, L100.0200, L500.2900 #### [facility] [address] [place], [address] Triglyceride [Mass/Vol] 82 mg/dL Normal [facility] Comment on above: Order Comment: Urine , Random Result Comment: The drugs N-Acetylcysteine and Metamizole may falsely depress this assay. Serum Triglycerides Reference Interval Normal <150 mg/dL Borderline high 150 - 199 mg/dL High 200 - 499 mg/dL Very High > or = 500 mg/dL Performed By: #### L 400.0100, L100.0200, L500.2900 #### [facility] [address] [place], [address] Low density lipoprotein (LDL ) cholesterol measurementOrdered By: Chelsea Kaufman on 04-02-2024 Cholesterol in LDL [Mass/Vol] 134 mg/dL High 0-130 [facility] MCV (mean corpuscular volume ) determinationOrdered By: Chelsea Kaufman on 04-02-2024 MCV (RBC) [Entitic vol] 89.6 fL 81-99 [facility] MR/CON.PCM.NEon 04-02-2024 MR/CON.PCM.NE [facility] Medical Records Department [address] [place] [address] Consultation - Neurology 04/02/24 1416 MR#: [id number] Acct: [id number] Name: HANNAH LIGHT Rep #: [id number] : 1950 74 From: Charles Mims MD PCP: Mayra Escobedo, MANAGER [employer]-C Status:ADM [place] Location: [place] [address] Assessment and Plan: Stroke Assessment/Plan HANNAH LIGHT, [...] questions or concerns. Stroke to sign off. [facility] Medical History Neurocardiogenic syncope GERD (gastroesophageal reflux [...] 02/25/24 Hi (more content not included)... Normal [facility] Magnesiumon 04-02-2024 Magnesium [Mass/Vol] 2.2 mg/dL Normal 1.6-2.6 [facility] Comment on above: Order Comment: Urine , Random Performed By: #### L 400.0100, L100.0200, L500.2900 #### [facility] [address] [place] [address]. [place], [address] Magnesium measurementOrdered By: Chelsea Kaufman on 04-02-2024 Magnesium [Mass/Vol] 2.2 mg/dL 1.6-2.6 [facility] Mean corpuscular hemoglobin (MCH) determinationOrdered By: Chelsea Kaufman on 04-02-2024 MCH (RBC) [Entitic mass] 29.4 pg 27.0-32.0 [facility] Mean corpuscular hemoglobin concentration (MCHC) determinationOrdered By: Chelsea Kaufman on 04-02-2024 MCHC (RBC) [Mass/Vol] 32.8 g/dL 32-36 [facility] Mean platelet volume determi nationOrdered By: Chelsea Kaufman on 04-02-2024 Platelet mean volume (Bld) [Entitic vol] 10.6 fL 6.2-12.0 [facility] Monocyte percentageOrdered B y: Chelsea Kaufman on 04-02-2024 Monocytes/100 WBC (Bld) 10.6 % High 0-10 [facility] Neutrophil percentageOrdered By: Chelsea Kaufman on 04-02-2024 Neutrophils/100 WBC (Bld) 50.0 % 47-70 [facility] Nucleated red blood cell per centageOrdered By: Chelsea Kaufman on 04-02-2024 Nucleated RBC/100 WBC (Bld) [Ratio] 0 % 0-5 [facility] Phosphoruson 04-02-2024 Phosphate [Mass/Vol] 4.2 mg/dL Normal 2.5-4.9 [facility] Comment on above: Order Comment: Urine , Random Performed By: #### L 400.0100, L100.0200, L500.2900 #### [facility] [address] [place], [address] Platelet countOrdered By: Simone Kaufman on 04-02-2024 Platelets (Bld) [#/Vol] 207 10*3/uL 150-450 [facility] Potassium measurementOrdered By: Chelsea Kaufman on 04-02-2024 Potassium [Moles/Vol] 3.8 mmol/L 3.5-5.1 [facility] RBC Auto (Bld) [#/Vol]Ordere d By: Chelsea Kaufman on 04-02-2024 RBC (Bld) [#/Vol] 4.15 10*6/uL Low 4.2-5.4 [facility] Serum anion gap measurementO rdered By: Chelsea Kaufman on 04-02-2024 Anion gap [Moles/Vol] 6 mmol/L 5-15 [facility] Serum globulin measurementOr dered By: Chelsea Kaufman on 04-02-2024 Globulin (S) [Mass/Vol] 2.7 g/dL 2.2-4.2 [facility] Serum or plasma alanine larson otransferase (ALT) measurementOrdered By: Chelsea Kaufman on 04-02-2024 ALT [Catalytic activity/Vol] 23 U/L 13-56 [facility] Serum or plasma albumin josh urement (mass/volume)Ordered By: Chelsea Kaufman on 04-02-2024 Albumin [Mass/Vol] 3.3 g/dL 3.2-5.[address] [facility] Serum or plasma alkaline sumeet sphatase measurementOrdered By: Chelsea Kaufman on 04-02-2024 ALP [Catalytic activity/Vol] 59 U/L 45-117 [facility] Serum or plasma calcium josh urement (mass/volume)Ordered By: Chelsea Kaufman on 04-02-2024 Calcium [Mass/Vol] 9.1 mg/dL 8.5-10.[address] [facility] Serum or plasma cholesterol measurement (mass/volume)Ordered By: Chelsea Kaufman on 04-02-2024 Cholesterol [Mass/Vol] 214 mg/dL High <200 [facility] Comment on above: <200 mg/dL Desirable 200-240 mg/dL Borderline >240 mg/dL High Risk Serum or plasma creatinine m easurement (mass/volume)Ordered By: Chelsea Kaufman on 04-02-2024 Creatinine [Mass/Vol] 0.84 mg/dL 0.55-1.02 [facility] Comment on above: The validity of the calculated GFR & GFRAA in patients over 70 years has not been determined. Clinical correlation is essential. Serum or plasma thyroid stim ulating hormone (TSH) measurement (units/volume)Ordered By: Chelsea Kaufman on 04-02-2024 TSH Qn 6.830 uIU/mL High 0.358-3.74 0 [facility] Serum or plasma urea nitroge n measurement (mass/volume)Ordered By: Chelsea Kaufman on 04-02-2024 Urea nitrogen [Mass/Vol] 14 mg/dL 7-18 [facility] Sodium levelOrdered By: Lexie Kaufman on 04-02-2024 Sodium [Moles/Vol] 138 mmol/L 136-[address] [facility] Thyroid Stim Hormone (TSH)on 04-02-2024 TSH 6.830 uIU/mL High 0.358-3.74 0 [facility] Comment on above: Order Comment: Urine , Random Performed By: #### L 400.0100, L100.0200, L500.2900 #### [facility] [address] [place], [place], [address] Total proteinOrdered By: Nasrin Kaufman on 04-02-2024 Protein [Mass/Vol] 6.0 g/dL Low 6.4-8.[address] [facility] Triglycerides measurementOrd ered By: Chelsea Kaufman on 04-02-2024 Triglyceride [Mass/Vol] 82 mg/dL <199 [facility] Comment on above: The drugs N-Acetylcy steine and Metamizole may falsely depress this assay.Serum Triglycerides Reference Interval Normal <150 mg/dL Borderline high 150 - 199 mg/dL High 200 - 499 mg/dL Very High > or = 500 mg/dL Very low density lipoprotein (VLDL) cholesterol measurementOrdered By: Chelsea Kaufman on 04-02-2024 Very low density lipoprotein (VLDL) cholesterol measurement 16 mg/dL 5-40 [facility] White blood cell (WBC) count Ordered By: Chelsea Kaufman on 04-02-2024 WBC (Bld) [#/Vol] 6.1 10*3/uL 4.4-11.[address] [facility] 12 Lead EKGon 04-01-2024 12 Lead EKG [facility] [address] [place] [address] 12 Lead EKG 04/01/24 1226 MR#: [id number] Acct: [id number] Name: HANNAH LIGHT Rep #: [id number] : 1950 74 From: Jose Miguel Eng MD Attending Dr: Dr. Moreno Moody, DO Status: ADM [place] Ordering Dr: Meagan Norman MD Date: 04/01/24 Location: [facility] Sex: F C Admitted: 04/01/24 Test Reason : SYNCOPE Blood Pressure : */* mmHG Vent. Rate : 79 BPM Atrial Rate : 79 BPM P-R Int : 150 ms QRS Dur : 66 ms QT Int : 360 ms P-R-T Axes : 50 35 42 degrees QTcB Int : 412 ms Normal sinus rhythm Normal ECG Confirmed by Jose Miguel Eng ([id number]), deputy editor in chief BOYD TA ([id number]) on 04/02/2024 10:02:37 AM Referred By: BB/ Confirmed By: Jose Miguel Eng 04/02/24 1002 Date Jose Miguel Eng MD CC: MANAGER [employer]-Nena Escobedo; Dr. Megaan Norman MD; Dr. Moreno Moody DO Signed Normal [facility] Activated partial thrombopla stin time (aPTT) in platelet poor plasma by coagulation aOrdered By: Meagan Norman on 04-01-2024 aPTT Coag (PPP) [Time] 24.5 s 24.1-36.2 [facility] Basic Metabolic Profile (BMP )on 04-01-2024 BUN/CRE 15.3 RATIO Normal 10-20 [facility] Comment on above: Order Comment: 'TROP ' Serial specimen #1, #2 or #3: 1 Performed By: #### L 400.0100, L100.0200, L500.2900 #### [facility] [address] [place], [address] CA,Total 9.5 mg/dL Normal 8.5-10.1 [facility] Comment on above: Order Comment: 'TROP ' Serial specimen #1, #2 or #3: 1 Performed By: #### L 400.0100, L100.0200, L500.2900 #### [facility] [address] [place], [address] Chloride [Moles/Vol] 102 mmol/L Normal 98-107 [facility] Comment on above: Order Comment: 'TROP ' Serial specimen #1, #2 or #3: 1 Performed By: #### L 400.0100, L100.0200, L500.2900 #### [facility] [address] [place], [address] CO2 [Moles/Vol] 27.0 mmol/L Normal 21.0-32.0 [facility] Comment on above: Order Comment: 'TROP ' Serial specimen #1, #2 or #3: 1 Performed By: #### L 400.0100, L100.0200, L500.2900 #### [facility] [address] [place], [address] Creatinine [Mass/Vol] 1.31 mg/dL High 0.55-1.02 [facility] Comment on above: Order Comment: 'TROP ' Serial specimen #1, #2 or #3: 1 Result Comment: The validity of the calculated GFR GFRAA in patients over 70 years has not been determined. Clinical correlation is essential. Performed By: #### L 400.0100, L100.0200, L500.2900 #### [facility] [address] [place], [address] ECRCL 38.35 ml/min Normal [facility] Comment on above: Order Comment: 'TROP ' Serial specimen #1, #2 or #3: 1 Performed By: #### L 400.0100, L100.0200, L500.2900 #### [facility] [address] [place], [address] EST GFR - AA 51 mL/min Low >60 [facility] Comment on above: Order Comment: 'TROP ' Serial specimen #1, #2 or #3: 1 Result Comment: Afri can Stateless GFR Calc Performed By: #### L 400.0100, L100.0200, L500.2900 #### [facility] [address] [place], [address] GAP 9 Normal 5-15 [facility] Comment on above: Order Comment: 'TROP ' Serial specimen #1, #2 or #3: 1 Performed By: #### L 400.0100, L100.0200, L500.2900 #### [facility] [address] [place], [address] GFR/1.73 sq M.predicted among non-blacks MDRD (S/P/Bld) [Vol rate/Area] 42 mL/min/{1.73_m2} Low >60 [facility] Comment on above: Order Comment: 'TROP ' Serial specimen #1, #2 or #3: 1 Result Comment: Non- GFR Calc Performed By: #### L 400.0100, L100.0200, L500.2900 #### [facility] [address] [place], [address] Glucose [Mass/Vol] 107 mg/dL High 74-[address] [facility] Comment on above: Order Comment: 'TROP ' Serial specimen #1, #2 or #3: 1 Result Comment: Fast ing Glucose result from 100 to 125 mg/dL suggests IMPAIRED HOMEOSTASIS per A.D.A. criteria. Performed By: #### L 400.0100, L100.0200, L500.2900 #### [facility] [address] [place], [address] Potassium [Moles/Vol] 3.8 mmol/L Normal 3.5-5.1 [facility] Comment on above: Order Comment: 'TROP ' Serial specimen #1, #2 or #3: 1 Performed By: #### L 400.0100, L100.0200, L500.2900 #### [facility] [address] [place], [address] Sodium [Moles/Vol] 138 mmol/L Normal 136-[address] [facility] Comment on above: Order Comment: 'TROP ' Serial specimen #1, #2 or #3: 1 Performed By: #### L 400.0100, L100.0200, L500.2900 #### [facility] [address] [place], [address] Urea nitrogen [Mass/Vol] 20 mg/dL High 7-18 [facility] Comment on above: Order Comment: 'TROP ' Serial specimen #1, #2 or #3: 1 Performed By: #### L 400.0100, L100.0200, L500.2900 #### [facility] [address] [place], [address] BUN Normal 7-18 [facility] Comment on above: Result Comment: Canc elled via OM: Duplicate Order Performed By: #### L 400.0100, L100.0200, L500.2900 #### [facility] [address] [place], [address] BUN/CRE Normal 10-20 [facility] Comment on above: Result Comment: Canc elled via OM: Duplicate Order Performed By: #### L 400.0100, L100.0200, L500.2900 #### [facility] [address] [place], [address] CA,Total Normal 8.5-10.1 [facility] Comment on above: Result Comment: Canc elled via OM: Duplicate Order Performed By: #### L 400.0100, L100.0200, L500.2900 #### [facility] [address] [place], [address] CL Normal 98-107 [facility] Comment on above: Result Comment: Canc elled via OM: Duplicate Order Performed By: #### L 400.0100, L100.0200, L500.2900 #### [facility] [address] [place], [address] CO2 Normal 21.0-32.0 [facility] Comment on above: Result Comment: Canc elled via OM: Duplicate Order Performed By: #### L 400.0100, L100.0200, L500.2900 #### [facility] [address] [place], [address] CREAT,SERUM Normal 0.55-1.02 [facility] Comment on above: Result Comment: Canc elled via OM: Duplicate Order Performed By: #### L 400.0100, L100.0200, L500.2900 #### [facility] [address] [place], [address] EST GFR Normal >60 [facility] Comment on above: Result Comment: Canc elled via OM: Duplicate Order Performed By: #### L 400.0100, L100.0200, L500.2900 #### [facility] [address] [place], [address] EST GFR - AA Normal >60 [facility] Comment on above: Result Comment: Canc elled via OM: Duplicate Order Performed By: #### L 400.0100, L100.0200, L500.2900 #### [facility] [address] [place], [address] GAP Normal 5-15 [facility] Comment on above: Result Comment: Canc elled via OM: Duplicate Order Performed By: #### L 400.0100, L100.0200, L500.2900 #### [facility] [address] [place], [address] GLU Normal 74-106 [facility] Comment on above: Result Comment: Canc elled via OM: Duplicate Order Performed By: #### L 400.0100, L100.0200, L500.2900 #### [facility] [address] [place], [address] Potassium Normal 3.5-5.1 [facility] Comment on above: Result Comment: Canc elled via OM: Duplicate Order Performed By: #### L 400.0100, L100.0200, L500.2900 #### [facility] [address] [place], [address] Basic Metabolic Profile (BMP) Normal 136-145 [facility] Comment on above: Result Comment: Canc elled via OM: Duplicate Order Performed By: #### L 400.0100, L100.0200, L500.2900 #### [facility] [address] [place], [address] Bedside Glucoseon 04-01-2024 FINGERSTICK GLU 104 mg/dL Normal 74-106 [facility] Comment on above: Result Comment: JELENA WOODRUFF OF PATIENT CARE PER NURSING PROTOCOL Performed By: #### L 501.080 #### [facility] [address] [place], [address] Brain without Contraston Brain without Contrast [facility] Imaging Services [address] [place] [address] Brain without Contrast MR#: [id number] Acct: [id number] Name: HANNAH LIGHT Rep #: [id number] : 1950 F 74 From: Veto Titus PCP: Mayra Escobedo NP-C Status: ADM [place] Study: Brain without Contrast Date of Exam: 04/01/24 Exam# [id number] Ordering Dr: Chelsea Kaufman DO PROCEDURE: BRAIN [...] vessel ischemic changes. Reading Location: [place] CC: MANAGER FURNITURE-C Mayra Escobedo; Dr. Chlesea Kaufman DO Staple Laster: Signed Normal [facility] CBC W/Diff, Automatedon 03-23 Absolute Neut Normal 2.0-7.7 [facility] Comment on above: Result Comment: DUPL ICATE Performed By: #### L 400.0100, L100.0200, L500.2900 #### [facility] [address] [place], [address] HCT Normal 37-47 [facility] Comment on above: Result Comment: DUPL ICATE Performed By: #### L 400.0100, L100.0200, L500.2900 #### [facility] [address] [place], [address] HGB Normal 12.0-15.0 [facility] Comment on above: Result Comment: DUPL ICATE Performed By: #### L 400.0100, L100.0200, L500.2900 #### [facility] [address] [place], [address] MCH Normal 27.0-32.0 [facility] Comment on above: Result Comment: DUPL ICATE Performed By: #### L 400.0100, L100.0200, L500.2900 #### [facility] [address] [place], [address] MCHC Normal 32-36 [facility] Comment on above: Result Comment: DUPL ICATE Performed By: #### L 400.0100, L100.0200, L500.2900 #### [facility] [address] [place], [address] MCV Normal 81-99 [facility] Comment on above: Result Comment: DUPL ICATE Performed By: #### L 400.0100, L100.0200, L500.2900 #### [facility] [address] [place], [address] NEUT% Normal 47-70 [facility] Comment on above: Result Comment: DUPL ICATE Performed By: #### L 400.0100, L100.0200, L500.2900 #### [facility] [address] [place], [address] PLT Normal 150-450 [facility] Comment on above: Result Comment: DUPL ICATE Performed By: #### L 400.0100, L100.0200, L500.2900 #### [facility] [address] [place], [address] RBC Normal 4.2-5.4 [facility] Comment on above: Result Comment: DUPL ICATE Performed By: #### L 400.0100, L100.0200, L500.2900 #### [facility] [address] [place], [address] RDW CV Normal 11.6-14.6 [facility] Comment on above: Result Comment: DUPL ICATE Performed By: #### L 400.0100, L100.0200, L500.2900 #### [facility] [address] [place], [address] RDW SD Normal 35.1-43.9 [facility] Comment on above: Result Comment: DUPL ICATE Performed By: #### L 400.0100, L100.0200, L500.2900 #### [facility] [address] [place], [address] WBC Normal 4.4-11.0 [facility] Comment on above: Result Comment: DUPL ICATE Performed By: #### L 400.0100, L100.0200, L500.2900 #### [facility] [address] [place], [address] Absolute Lymph 2.09 X10 3/uL Normal 0.83-4.51 [facility] Comment on above: Performed By: #### L 400.0100, L100.0200, L500.2900 #### [facility] [address] [place], [address] Absolute Neut 4.3 X10 3/uL Normal 2.0-7.7 [facility] Comment on above: Performed By: #### L 400.0100, L100.0200, L500.2900 #### [facility] [address] [place], [address] Basophils/100 WBC (Bld) 0.3 % Normal 0-1 [facility] Comment on above: Performed By: #### L 400.0100, L100.0200, L500.2900 #### [facility] [address] [place], [address] Eosinophils/100 WBC (Bld) 0.8 % Normal 0-5 [facility] Comment on above: Performed By: #### L 400.0100, L100.0200, L500.2900 #### [facility] [address] [place], [address] Erythrocyte distribution width (RBC) [Ratio] 12.6 % Normal 11.6-14.6 [facility] Comment on above: Performed By: #### L 400.0100, L100.0200, L500.2900 #### [facility] [address] [place], [address] Hematocrit (Bld) [Volume fraction] 40.3 % Normal 37-47 [facility] Comment on above: Performed By: #### L 400.0100, L100.0200, L500.2900 #### [facility] [address] [place], [address] Hemoglobin (Bld) [Mass/Vol] 13.6 g/dL Normal 12.0-15.0 [facility] Comment on above: Performed By: #### L 400.0100, L100.0200, L500.2900 #### [facility] [address] [place], [address] IG% 0.600 Normal 0.0-0.9 [facility] Comment on above: Result Comment: IG% - Immature Granulocytes (promyelocytes, myelocytes and metamyelocytes) > 1% indicates that a LEFT SHIFT is Present. Performed By: #### L 400.0100, L100.0200, L500.2900 #### [facility] [address] [place], [address] Lymphocytes/100 WBC (Bld) 29.5 % Normal 19-41 [facility] Comment on above: Performed By: #### L 400.0100, L100.0200, L500.2900 #### [facility] [address] [place], [address] MCH (RBC) [Entitic mass] 29.9 pg Normal 27.0-32.0 [facility] Comment on above: Performed By: #### L 400.0100, L100.0200, L500.2900 #### [facility] [address] [place], [address] MCHC (RBC) [Mass/Vol] 33.7 g/dL Normal 32-36 [facility] Comment on above: Performed By: #### L 400.0100, L100.0200, L500.2900 #### [facility] [address] [place], [address] MCV (RBC) [Entitic vol] 88.6 fL Normal 81-99 [facility] Comment on above: Performed By: #### L 400.0100, L100.0200, L500.2900 #### [facility] [address] [place], [address] Monocytes/100 WBC (Bld) 8.5 % Normal 0-10 [facility] Comment on above: Performed By: #### L 400.0100, L100.0200, L500.2900 #### [facility] [address] [place], [address] Neutrophils/100 WBC (Bld) 60.3 % Normal 47-70 [facility] Comment on above: Performed By: #### L 400.0100, L100.0200, L500.2900 #### [facility] [address] [place], [address] Nucleated RBC (Bld) [#/Vol] 0 10*3/uL Normal 0-5 [facility] Comment on above: Performed By: #### L 400.0100, L100.0200, L500.2900 #### [facility] [address] [place], [address] Platelet mean volume (Bld) [Entitic vol] 10.4 fL Normal 6.2-12.0 [facility] Comment on above: Performed By: #### L 400.0100, L100.0200, L500.2900 #### [facility] [address] [place], [address] Platelets (Bld) [#/Vol] 254 10*3/uL Normal 150-450 [facility] Comment on above: Performed By: #### L 400.0100, L100.0200, L500.2900 #### [facility] [address] [place], [address] RBC (Bld) [#/Vol] 4.55 10*6/uL Normal 4.2-5.4 [facility] Comment on above: Performed By: #### L 400.0100, L100.0200, L500.2900 #### [facility] [address] [place], [address] RDW SD 41.3 fl Normal 35.1-43.9 [facility] Comment on above: Performed By: #### L 400.0100, L100.0200, L500.2900 #### [facility] [address] [place], [address] WBC (Bld) [#/Vol] 7.1 10*3/uL Normal 4.4-11.[address] [facility] Comment on above: Performed By: #### L 400.0100, L100.0200, L500.2900 #### [facility] [address] [place], [address] Absolute Neut Normal 2.0-7.7 [facility] Comment on above: Result Comment: Canc elled via OM: Duplicate Order Performed By: #### L 400.0100, L100.0200, L500.2900 #### [facility] [address] [place], [address] HCT Normal 37-47 [facility] Comment on above: Result Comment: Canc elled via OM: Duplicate Order Performed By: #### L 400.0100, L100.0200, L500.2900 #### [facility] [address] [place], [address] HGB Normal 12.0-15.0 [facility] Comment on above: Result Comment: Canc elled via OM: Duplicate Order Performed By: #### L 400.0100, L100.0200, L500.2900 #### [facility] [address] [place], [address] MCH Normal 27.0-32.0 [facility] Comment on above: Result Comment: Canc elled via OM: Duplicate Order Performed By: #### L 400.0100, L100.0200, L500.2900 #### [facility] [address] [place], [address] MCHC Normal 32-36 [facility] Comment on above: Result Comment: Canc elled via OM: Duplicate Order Performed By: #### L 400.0100, L100.0200, L500.2900 #### [facility] [address] [place], [address] MCV Normal 81-99 [facility] Comment on above: Result Comment: Canc elled via OM: Duplicate Order Performed By: #### L 400.0100, L100.0200, L500.2900 #### [facility] [address] [place], [address] NEUT% Normal 47-70 [facility] Comment on above: Result Comment: Canc elled via OM: Duplicate Order Performed By: #### L 400.0100, L100.0200, L500.2900 #### [facility] [address] [place], [address] PLT Normal 150-450 [facility] Comment on above: Result Comment: Canc elled via OM: Duplicate Order Performed By: #### L 400.0100, L100.0200, L500.2900 #### [facility] [address] [place], [address] RBC Normal 4.2-5.4 [facility] Comment on above: Result Comment: Canc elled via OM: Duplicate Order Performed By: #### L 400.0100, L100.0200, L500.2900 #### [facility] [address] [place], [address] RDW CV Normal 11.6-14.6 [facility] Comment on above: Result Comment: Canc elled via OM: Duplicate Order Performed By: #### L 400.0100, L100.0200, L500.2900 #### [facility] [address] [place], [address] RDW SD Normal 35.1-43.9 [facility] Comment on above: Result Comment: Canc elled via OM: Duplicate Order Performed By: #### L 400.0100, L100.0200, L500.2900 #### [facility] [address] [place], [address] WBC Normal 4.4-11.0 [facility] Comment on above: Result Comment: Canc elled via OM: Duplicate Order Performed By: #### L 400.0100, L100.0200, L500.2900 #### [facility] [address] [place], [address] Chest 1 View (Portable)on Chest 1 View (Portable) [facility] Imaging Services [address] [place], [place] [address] Chest 1 View (Portable) MR#: [id number] Acct: [id number] Name: HANNAH LIGHT Rep #: [id number] : 1950 F 74 From: Cricket Khanna PCP: Mayra Escobedo, MANAGER FURNITURE-C Status: PRE ER Study: Chest 1 View (Portable) Date of Exam: 04/01/24 Exam# [id number] Ordering Dr: Meagan Norman MD PROCEDURE: CHEST [...] acute cardiopulmonary disease. Negative examination. Reading Location: [id number] CC: MANAGER FURNITURE-C Mayra Escobedo; Dr. Meagan Norman MD Staple Laster: Signed Normal [facility] Echo Completeon 04-01-2024 Echo Complete [facility] [address] [place] [address] Echo Complete 04/02/24 0905 MR#: [id number] Acct: [id number] Name: HANNAH LIGHT Rep #: [id number] : 1950 74 From: Artis Lopez MD Attending Dr: Dr. Moreno Moody DO Status: ADM [place] Ordering Dr: Chelsea Kaufman DO Date: 04/01/24 Location: PCU Sex: F C Admitted: 04/01/24 Reason For [...] Physician: Mayra Escobedo Performed By: Ivy Leal, ANTOLIN, RVT 04/02/24 1446 Date Artis Lopez MD CC: MANAGER FURNITURE-C Mayra Escobedo; Dr. Moreno Moody DO; Dr. Chelsea Kaufman DO Date Dictated: 04/02/24904 Date Transcribed: 04/02/24 144 Staple Laster: Signed Normal [facility] Emergency Department Summary on 04-01-2024 Emergency Department Summary [facility] Medical Records Department [address] [place] [address] Emergency Department Summary 04/01/24 MR#: [id number] Acct: [id number] Name: HANNAH LIGHT Rep #: [id number] : 1950 74 From: Meagan Norman MD PCP: REBECCA Wallace Status:[facility] ER Location: ED HPI History of Present [...] to obtaining)] (more content not included)... Normal [facility] Glucose measurement at bedsi deOrdered By: ED PROVIDER on 04-01-2024 Glucose [Mass/Vol] 104 mg/dL 74-[address] [facility] Comment on above: MANAGEMENT OF PATIEN T CARE PER NURSING PROTOCOL H AND P Exam - Hospitaliston 04-01-2024 H&P Exam - Hospitalist [facility] Medical Records Department [address] [place] [address] H P Exam - Hospitalist 04/01/24 1518 MR#: [id number] Acct: [id number] Name: HANNAH LIGHT Rep #: [id number] : 1950 74 From: Chelsea Kaufman DO PCP: REBECCA Wallace Status:ADM [place] Location: [place] [address] HPI - General General Date of Admission: 04/01/24 Date of Service: 04/01/24 Chief Complaint: Ataxia/Vertigo HPI Narrative HANNAH LIGHT, is a 74 F who presented to the emergency department at [facility] on 03/29/2024 with a chief complaint of [...] 0 at the time of their evaluation. [facility] Medical History Neurocardiogenic syncope GERD (gastroesophageal reflux [...] 187.5 mcg PO .ily THYROID 05/31/23 02/25/24 History levothyroxine 125 mcg [...] History Brother (more content not included)... Normal [facility] Hemoglobin A1con 04-01-2024 HbA1c (Bld) [Mass fraction] 5.8 % High 3.8-5.6 [facility] Comment on above: Result Comment: Norm al < 5.7 % Prediabetic 5.7 - 6.4 % Diabetic >or= 6.5 % Please note range changes. Performed By: #### L 501.3159 #### [facility] [address] [place], [address] Hemoglobin A1c percentageOrd ered By: Chelsea Kaufman on 04-01-2024 HbA1c (Bld) [Mass fraction] 5.8 % High 3.8-5.6 [facility] Comment on above: Normal < 5.7 % Predi abetic 5.7 - 6.4 % Diabetic >or= 6.5 % Please note range changes. International normalized rat io (INR) calculationOrdered By: Meagan Norman on 04-01-2024 INR Coag (Bld) [Relative time] 0.9 {INR} [facility] L501.4020on 04-01-2024 TROPONIN-I HS 11 pg/mL Normal 3.0-54.0 [facility] Comment on above: Order Comment: 'TROP ' Serial specimen #1, #2 or #3: 1 Result Comment: Amilcar pagan Note: New Test Units and Gender Specific Reference Ranges. For more information see Policy Stat Procedure [place] High Sensitivity Troponin (TNIH) and attachments. Performed By: #### L 400.0100, L100.0200, L500.2900 #### [facility] [address] [place], [address] Partial Thromboplast Timeon 04-01-2024 aPTT Coag (Bld) [Time] 24.5 s Normal 24.1-36.2 [facility] Comment on above: Performed By: #### L 400.0100, L100.0200, L500.2900 #### [facility] [address] [place], [address] Prothrombin Time w/INRon INR Normal [facility] Comment on above: Result Comment: DUPL ICATE Performed By: #### L 400.0100, L100.0200, L500.2900 #### [facility] [address] [place], [address] PROTIME Normal 11.7-14.9 [facility] Comment on above: Result Comment: DUPL ICATE Performed By: #### L 400.0100, L100.0200, L500.2900 #### [facility] [address] [place], [address] INR Coag (PPP) [Relative time] 0.9 {INR} Normal [facility] Comment on above: Performed By: #### L 400.0100, L100.0200, L500.2900 #### [facility] [address] [place], [address] PT Coag (PPP) [Time] 12.7 s Normal 11.7-14.9 [facility] Comment on above: Performed By: #### L 400.0100, L100.0200, L500.2900 #### [facility] [address] [place], [address] Prothrombin timeOrdered By: Meagan Norman on 04-01-2024 PT Coag (PPP) [Time] 12.7 s 11.7-14.9 [facility] STROKE Brain/Head without Co nton 04-01-2024 STROKE Brain/Head without Cont [facility] Services [address] [place], [place] [address] STROKE Brain/Head without Cont MR#: [id number] Acct: [id number] Name: HANNAH LIGHT Rep #: [id number] : 1950 F 74 From: Jimi sterling MD PCP: REBECCA Wallace Status: REG ER Study: STROKE Brain/Head without Cont Date of Exam: 0 04/01/24 Exam# [id number] Ordering Dr: Meagan Norman MD PROCEDURE: STROKE [...] use of iterative reconstruction technique). Reading Location: [place] [address] CC: MANAGER FURNITURESneha Escobedo; Dr. Meagan Norman MD Staple Laster: Signed Normal [facility] STROKE CTA Head AND Neck W/C onon 04-01-2024 STROKE CTA Head AND Neck W/Con [facility] Services [address] [place] [address] STROKE CTA Head AND Neck W/Con MR#: [id number] Acct: [id number] Name: HANNAH LIGHT Rep #: [id number] : 1950 F 74 From: Jimi sterling MD PCP: Mayra Escobedo, MANAGER FURNITURE-C Status: REG ER Study: STROKE CTA Head AND Neck W/Con Date of Exam: 0 04/01/24 Exam# [id number] Ordering Dr: Meagan Norman MD PROCEDURE: STROKE [...] use of iterative reconstruction technique). Reading Location: [place] [address] CC: REBECCA Escobedo; Dr. Meagan Norman MD Staple Laster: Signed Normal [facility] Troponin IOrdered By: Meagan Norman on 04-01-2024 Troponin I 11 pg/mL 3.0-54.0 [facility] Comment on above: Please Note: [place] t Units and Gender Specific Reference Ranges. For more information see Policy Stat Procedure [place] High Sensitivity Troponin (TNIH) and attachments. Orthopedic Visit Reporton Orthopedic Visit Report [facility] [address] [place] [address] OFFICE VISIT Date of Service: 03/14/24 MR#: [id number] Acct: [id number] Name: HANNAH LIGHT Rep #: [id number] : 1950 Provider: Dr. Chapo buico MD Age/Sex: 74/F Location: [facility] Status: Signed Intake Vital Signs 02/26/24 11:48 [...] and snap up her bra. Supplemental Info [facility] [address] [place] [address] Upper Ext Joint Only(Routine) MR#: [id number] Acct: [id number] Name: HANNAH LIGHT Rep #: [id number] : 1950 F 74 From: Piter Kafuman MD PCP: REBECCA Wallace Status: [facility] CLI Study: Upper Ext Joint Only(Routine) Date of Exam: 03/11/24 Exam# [id number] Ordering Dr: Chapo Yates MD [id number] STUDY: MRI LEFT SHOULDER REASON FOR EXAM: [...] mild h (more content not included)... Normal [facility] Upper Ext Joint Only(Routine )on 03-11-2024 Upper Ext Joint Only(Routine) [facility] Services [address] [place], [place] [address] Upper Ext Joint Only(Routine) MR#: [id number] Acct: [id number] Name: HANNAH LIGHT Rep #: [id number] : 1950 F 74 From: Piter Kaufman MD PCP: Mayra Escobedo NP-Nena Status: REG CLI Study: Upper Ext Joint Only(Routine) Date of Exam: 0 03/11/24 Exam# [id number] Ordering Dr: Chapo Yates MD [id number] STUDY: MRI LEFT SHOULDER REASON FOR EXAM: [...] 11:19 EST Reading Location ID and State: [facility] / [place] , Service support , CC: REBECCA Escobedo; Dr. Chapo Yates MD Staple Laster: Signed Normal [facility] Orthopedic Visit Reporton Orthopedic Visit Report [facility] [address] [place] [address] [address] [place], [place] [address] OFFICE VISIT Date of Service: 03/04/24 MR#: [id number] Acct: [id number] Name: HANNAH LIGHT Rep #: [id number] : 1950 Provider: Dr. Chapo bucio MD Age/Sex: 74/F Location: [facility].[place] Status: Signed with Addenda ADDENDUM by Danielle [...] Performing Provider: Chapo Yates MD Performing Location: [place] [facility] Administered by: Chapo Yates MD on 03/04/24 15:33 Dose Route Admin Location Dispensed Lot Number Expiration Date NDC Man ufacturer 80 mg intra-articular left shoulder 2 mL [id number] 06/20/25 6798-6130-99 [facility] Date cc: * Signed Intake Vital [...] and the decisions made by me, Dr. Chaop Yates MD 03/04/24 1123. Part of today???s visit was documented by [ ], acting as scribe. HANNAH LIGHT is a 74 year old F here today for left shoulder pain. RHD. Has done 6 weeks of formal PT. lateral side shoulder pain and going down the arm, worse with lifting, 6-7. worse at night. works in [employer]. Supplemental Info [facility] Services [address] [place] [address] Shoulder min 2 Views MR#: [id number] Acct: [id number] Name: HANNAH LIGHT Rep #: [id number] : 1950 F 74 From: Gregory [place] MD PCP: Mayra Escobedo MANAGER FURNITURE-C Status: REG CLI Study: Shoulder min 2 Views Date of Exam: 01/17/24 Exam# [id number] Ordering Dr: Mayra Escobedo MANAGER FURNITURE-C [id number] INDICATION: XR SHOULDER LEFT COMPLETE ([id number]) : Pa (more content not included)... Normal [facility] Fluoro Guided Needle Placeme nton 02-26-2024 Fluoro Guided Needle Placement [facility] Services [address] [place] [address] Fluoro Guided Needle Placement MR#: [id number] Acct: [id number] Name: HANNAH LIGHT Rep #: [id number] : 1950 F 74 From: Jimi sterling MD PCP: Mayra Escobedo, MANAGER FURNITURE-C Status: [facility] Study: Fluoro Guided Needle Placement Date of Exam: 0 02/26/24 Exam# [id number] Ordering Dr: Gregory Apotne MD [id number] STUDY: KNEE INJECTION. RIGHT REASON FOR EXAM: Female, 74 years old. INJECTION, KNEE, RIGHT FLUOROSCOPY TIME (if supplied): ( 6 seconds ) minutes/seconds. 1.11 mGy. 3 images were submitted. TECHNIQUE: Fluoroscopic services provided for right knee injection. RAD/Fluoro Guided Needle Placement IMPRESSION: Fluoroscopic services provided for right knee injection. Electronically Signed: Jimi Morales MD at 12:20 EST Reading Location ID and State: [facility] / [place] , Service support , CC: REBECCA Escobedo; Dr. Gregory Aponte MD Staple Laster: Signed Normal [facility] Operative Reporton 5 Operative Report [facility] Medical Records Department [address] [place] [address] Operative Report 02/26/24 1213 MR#: [id number] Acct: [id number] Name: HANNAH LIGHT Rep #: [id number] : 1950 74 From: Gregory Aponte MD PCP: REBECCA Wallace Status:[facility] Location: [place] [address] Operative Report (Standard) Operative Information Date of Procedure: 02/26/24 Pre-Operative Diagnosis: 1 Post-Operative Diagnosis: 1 Surgery/Procedure Performed: 1 soda jerker: No Type of Anesthesia: Local RN Documented [...] None VTE Pharm Prophylaxis ordered?: No 02/26/24 5997 Cosigner Signature (if applicable): CC: REBECCA Escobedo; Dr. Gregory Aponte MD Signed Normal [facility] Urine Cultureon 02-12-2024 URC Below infection leve l. Mixed Gram Positive Organisms [place] Count 1000-10,000 MIXC Mixed contaminants. Submit a new specimen if indicated. Normal [facility] Comment on above: Performed By: #### M 100.2200, L506.1000, L400.0001, L501.9520 #### [facility] Laboratory [address] [place], [address] Vitamin D,25 Hydroxyon 02-11 Vitamin D 25-OH 33.2 ng/mL Normal [facility] Comment on above: Result Comment: Jackie min D 25(OH) Status Range Deficiency <20 ng/mL (50nmol/L) Insufficiency 20 - 30 ng/mL (50 - 75 nmol/L) Sufficiency 30 - 100 ng/mL (75 - 250 nmol/L) Toxicity >100 ng/mL (>250 nmol/L) Performed By: #### M 100.2200, L506.1000, L400.0001, L501.9520 #### [facility] [address] [place], [address] Thyroid Stim Hormone (TSH)on 02-10-2024 TSH 7.880 uIU/mL High 0.358-3.74 0 [facility] Comment on above: Performed By: #### M 100.2200, L506.1000, L400.0001, L501.9520 #### [facility] [address] [place], [address] Urinalysis, Completeon 02-09 BACTERIA 1+ /hpf Normal None Seen [facility] Comment on above: Order Comment: Urine , Random Performed By: #### M 100.2200, L506.1000, L400.0001, L501.9520 #### [facility] [address] [place], [address] CA OX CRYSTAL 2+ /hpf Normal [facility] Comment on above: Order Comment: Urine , Random Performed By: #### M 100.2200, L506.1000, L400.0001, L501.9520 #### [facility] [address] [place], [address] EPI,SQUAMOUS 10-25 SEEN Normal 5-10 [facility] Comment on above: Order Comment: Urine , Random Performed By: #### M 100.2200, L506.1000, L400.0001, L501.9520 #### [facility] [address] [place], [address] EPI,TRANSITION 0-5 SEEN Normal 0-5 [facility] Comment on above: Order Comment: Urine , Random Performed By: #### M 100.2200, L506.1000, L400.0001, L501.9520 #### [facility] [address] [place], [address] WBC 0-5 SEEN Normal 0-5 [facility] Comment on above: Order Comment: Urine , Random Performed By: #### M 100.2200, L506.1000, L400.0001, L501.9520 #### [facility] [address] [place], [address] Mucus Ql (Urine sed) 0 SEEN Normal [facility] Comment on above: Order Comment: Urine , Random Performed By: #### M 100.2200, L506.1000, L400.0001, L501.9520 #### [facility] [address] [place], [address] RBC 0 SEEN Normal 0-5 [facility] Comment on above: Order Comment: Urine , Random Performed By: #### M 100.2200, L506.1000, L400.0001, L501.9520 #### [facility] [address] [place], [address] Dexa Bone Density Studyon Dexa Bone Density Study [facility] Imaging Services [address] [place] [address] Dexa Bone Density Study MR#: [id number] Acct: [id number] Name: HANNAH LIGHT Rep #: [id number] : 1950 F 74 From: Jimi sterling MD PCP: REBECCA Wallace Status: [facility] Study: Dexa Bone Density Study Date of Exam: 02/08/24 Exam# [id number] Ordering Dr: Mayra Escobedo [id number] STUDY: DUAL ENERGY X-RAY ABSORPTIOMETRY / DXA [...] at 11:56 EST , CC: REBECCA Escobedo Staple Laster: Signed Normal [facility] Inital Evaluation (1) - PTyessica 01-26-2024 Inital Evaluation (1) - PT [facility] Physical Therapy [facility] [address] [place] [address] / REHABILITATION SERVICES INITIAL EVALUATION MR#: [id number] Acct: [id number] Name: HANNAH LIGHT Rep #: [id number] : 1950 74 From: Nik Schmid PT. MD [place], [facility] Referring Dr.: REBECCA Wallace Status: REG RCR [facility] SELF PAY INSURANCE Patient's Visit Information [...] Patient goals to decrease pain. 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 Normal [facility] Shoulder min 2 Viewson 01-16 Shoulder min 2 Views [facility] Imaging Services [address] [place], [place] [id number] Shoulder min 2 Views MR#: [id number] Acct: [id number] Name: HANNAH LIGHT Rep #: [id number] : 1950 F 74 From: Gregory Vela MD PCP: REBECCA Wallace Status: REG CLI Study: Shoulder min 2 Views Date of Exam: 01/17/24 Exam# [id number] Ordering Dr: Mayra Escobedo MANAGER FURNITURE-C [id number] INDICATION: XR SHOULDER LEFT COMPLETE (33269) : Pain x3 months; ? rotator cuf -- Left shoulder pain EXAMINATION/TECHNIQUE: X-RAY - LEFT XR Shoulder Min 2 Views COMPARISON: None. FINDINGS: SOFT TISSUES: Unremarkable. BONES/JOINTS: No fracture or dislocation. Mild degenerative changes of the glenohumeral joint. No erosive changes. RAD/Shoulder min 2 Views IMPRESSION: Mild degenerative changes with no acute abnormality. Electronically Signed: Gregory Vela DO at 0:36 EST , CC: MANAGER FURNITURESneha Escobedo Staple Laster: Signed Normal [facility] Lower Ext Joint Only (Routin e)on 12-25-2023 Lower Ext Joint Only (Routine) [facility] Imaging Services [address] [place] [address] Lower Ext Joint Only (Routine) MR#: [id number] Acct: [id number] Name: HANNAH LIGHT Rep #: [id number] : 1950 F 73 From: Rodolfo Carpenter MD PCP: JEMAL WallaceC Status: REG CLI Study: Lower Ext Joint Only (Routine) Date of Exam: 02/23/23 Exam# [id number] Ordering Dr: Brennon Ramirez MD [id number] EXAM: MR RIGHT LOWER EXTREMITY WITHOUT INTRAVENOUS [...] Signed: Rodolfo Carpenter MD at 3:03 EST Reading Location ID and State: [facility] / [place] Tel , Service support , CC: REBECCA Escobedo; Dr. Brennon Ramirez MD Staple Laster: Signed Normal [facility] PT D/C Summary (1)on 024 PT D/C Summary (1) [facility] Physical Therapy [address] [place] [address] / REHABILITATION SERVICES DISCHARGE SUMMARY MR#: [id number] Acct: [id number] Name: HANNAH LIGHT Rep #: [id number] : 1950 73 From: Aníbal Garcia PT, FADY, SCS, C SCS Referring Dr.: ALEE Marti Status: REG R CR Insurance: [employer]/[facility] SELF PAY INSURANCE 11/27/23 1434 CC: REBECCA Marti Signed Normal [facility] CBC, Employeeon 11-20-2023 Absolute Lymph 1.92 X10 3/uL Normal 0.83-4.51 [facility] Comment on above: Performed By: #### L 400.0100, L100.0200, L500.2900 #### [facility] Laboratory [address] [place], [address] Absolute Neut 2.5 X10 3/uL Normal 2.0-7.7 [facility] Comment on above: Performed By: #### L 400.0100, L100.0200, L500.2900 #### [facility] [address] [place], [address] Basophils/100 WBC (Bld) 0.4 % Normal 0-1 [facility] Comment on above: Performed By: #### L 400.0100, L100.0200, L500.2900 #### [facility] Laboratory [address] [place], [address] Eosinophils/100 WBC (Bld) 3.5 % Normal 0-5 [facility] Comment on above: Performed By: #### L 400.0100, L100.0200, L500.2900 #### [facility] Laboratory [address] [place], [address] Erythrocyte distribution width (RBC) [Ratio] 13.2 % Normal 11.6-14.6 [facility] Comment on above: Performed By: #### L 400.0100, L100.0200, L500.2900 #### [facility] Laboratory [address] [place], [address] Hematocrit (Bld) [Volume fraction] 40.1 % Normal 37-47 [facility] Comment on above: Performed By: #### L 400.0100, L100.0200, L500.2900 #### [facility] Laboratory [address] [place], [address] Hemoglobin (Bld) [Mass/Vol] 12.9 g/dL Normal 12.0-15.0 [facility] Comment on above: Performed By: #### L 400.0100, L100.0200, L500.2900 #### [facility] [address] [place], [address] Lymphocytes/100 WBC (Bld) 35.5 % Normal 19-41 [facility] Comment on above: Performed By: #### L 400.0100, L100.0200, L500.2900 #### [facility] Laboratory [address] [place], [address] MCH (RBC) [Entitic mass] 29.4 pg Normal 27.0-32.0 [facility] Comment on above: Performed By: #### L 400.0100, L100.0200, L500.2900 #### [facility] [address] [place], [address] MCHC (RBC) [Mass/Vol] 32.2 g/dL Normal 32-36 [facility] Comment on above: Performed By: #### L 400.0100, L100.0200, L500.2900 #### [facility] [address] [place], [address] MCV (RBC) [Entitic vol] 91.3 fL Normal 81-99 [facility] Comment on above: Performed By: #### L 400.0100, L100.0200, L500.2900 #### [facility] [address] [place], [address] Monocytes/100 WBC (Bld) 13.7 % High 0-10 [facility] Comment on above: Performed By: #### L 400.0100, L100.0200, L500.2900 #### [facility] [address] [place], [address] Neutrophils/100 WBC (Bld) 46.2 % Low 47-70 [facility] Comment on above: Performed By: #### L 400.0100, L100.0200, L500.2900 #### [facility] [address] [place], [address] NRBC # 0.00 10 3/uL Normal 0-5 [facility] Comment on above: Performed By: #### L 400.0100, L100.0200, L500.2900 #### [facility] [address] [place], [address] Nucleated RBC (Bld) [#/Vol] 0 10*3/uL Normal 0-5 [facility] Comment on above: Performed By: #### L 400.0100, L100.0200, L500.2900 #### [facility] [address] [place], [address] Platelet mean volume (Bld) [Entitic vol] 10.9 fL Normal 6.2-12.0 [facility] Comment on above: Performed By: #### L 400.0100, L100.0200, L500.2900 #### [facility] [address] [place], [address] Platelets (Bld) [#/Vol] 206 10*3/uL Normal 150-450 [facility] Comment on above: Performed By: #### L 400.0100, L100.0200, L500.2900 #### [facility] [address] [place], [address] RBC (Bld) [#/Vol] 4.39 10*6/uL Normal 4.2-5.4 [facility] Comment on above: Performed By: #### L 400.0100, L100.0200, L500.2900 #### [facility] [address] [place], [address] RDW SD 44.8 fl High 35.1-43.9 [facility] Comment on above: Performed By: #### L 400.0100, L100.0200, L500.2900 #### [facility] [address] [place], [address] WBC (Bld) [#/Vol] 5.4 10*3/uL Normal 4.4-11.[address] [facility] Comment on above: Performed By: #### L 400.0100, L100.0200, L500.2900 #### [facility] [address] [place], [address] CRPon 11-20-2023 C-REACTIVE PROT < 2.90 Normal 0.0-3.0 [facility] Comment on above: Order Comment: CBCD- IS DUPLICATE WITH EMP LABS PANEL Result Comment: C-Re active Protein (CRP) provides useful information for the diagnosis, therapy and monitoring of inflammatory processes and associated diseases. For the evaluation of Relative Risk for Cardiovascular Disease, a High Sensitivity CRP (HSCRP) should be ordered. Performed By: #### L 400.0100, L100.0200, L500.2900 #### [facility] [address] [place], [address] Employee Profileon Albumin [Mass/Vol] 3.6 g/dL Normal 3.2-5.[address] [facility] Comment on above: Performed By: #### L 400.0100, L100.0200, L500.2900 #### [facility] [address] [place], [address] Albumin/Globulin [Mass ratio] 1.2 {ratio} Normal 0.9-2.4 [facility] Comment on above: Performed By: #### L 400.0100, L100.0200, L500.2900 #### [facility] [address] [place], [address] ALK P 76 U/L Normal 45-117 [facility] Comment on above: Performed By: #### L 400.0100, L100.0200, L500.2900 #### [facility] [address] [place], [address] ALT [Catalytic activity/Vol] 22 U/L Normal 13-56 [facility] Comment on above: Performed By: #### L 400.0100, L100.0200, L500.2900 #### [facility] [address] [place], [address] AST [Catalytic activity/Vol] 14 U/L Low 15-37 [facility] Comment on above: Performed By: #### L 400.0100, L100.0200, L500.2900 #### [facility] [address] [place], [address] Bilirubin [Mass/Vol] 0.70 mg/dL Normal 0.20-1.00 [facility] Comment on above: Result Comment: For patients on eltrombopag therapy, use of Dimension [place] TBIL is not recommended. Performed By: #### L 400.0100, L100.0200, L500.2900 #### [facility] [address] [place], [address] Bilirubin.direct [Mass/Vol] 0.15 mg/dL Normal 0.00-0.30 [facility] Comment on above: Performed By: #### L 400.0100, L100.0200, L500.2900 #### [facility] [address] [place], [address] BUN/CRE 19.2 RATIO Normal 10-20 [facility] Comment on above: Performed By: #### L 400.0100, L100.0200, L500.2900 #### [facility] [address] [place], [address] CA,Total 8.9 mg/dL Normal 8.5-10.1 [facility] Comment on above: Performed By: #### L 400.0100, L100.0200, L500.2900 #### [facility] [address] [place], [address] Chloride [Moles/Vol] 105 mmol/L Normal 98-107 [facility] Comment on above: Performed By: #### L 400.0100, L100.0200, L500.2900 #### [facility] [address] [place], [address] CHOL:HDL 3.40 Normal [facility] Comment on above: Performed By: #### L 400.0100, L100.0200, L500.2900 #### [facility] [address] [place], [address] Cholesterol [Mass/Vol] 221 mg/dL High 200 [facility] Comment on above: Result Comment: <200 mg/dL Desirable 200-240 mg/dL Borderline >240 mg/dL High Risk Performed By: #### L 400.0100, L100.0200, L500.2900 #### [facility] [address] [place], [address] Cholesterol in HDL [Mass/Vol] 65 mg/dL Normal [facility] Comment on above: Result Comment: The drugs N-Acetylcysteine and Metamizole may falsely depress this assay. Reference Range HDL <40 mg/dL Low HDL Cholesterol HDL >or= 60 mg/dL High HDL Cholesterol Performed By: #### L 400.0100, L100.0200, L500.2900 #### [facility] [address] [place], [address] Cholesterol in LDL [Mass/Vol] 134 mg/dL High 0-130 [facility] Comment on above: Performed By: #### L 400.0100, L100.0200, L500.2900 #### [facility] [address] [place], [address] Cholesterol in VLDL [Mass/Vol] 22 mg/dL Normal 5-40 [facility] Comment on above: Performed By: #### L 400.0100, L100.0200, L500.2900 #### [facility] [address] [place], [address] CO2 [Moles/Vol] 29.0 mmol/L Normal 21.0-32.0 [facility] Comment on above: Performed By: #### L 400.0100, L100.0200, L500.2900 #### [facility] [address] [place], [address] Creatinine [Mass/Vol] 0.89 mg/dL Normal 0.55-1.02 [facility] Comment on above: Result Comment: The validity of the calculated GFR GFRAA in patients over 70 years has not been determined. Clinical correlation is essential. Performed By: #### L 400.0100, L100.0200, L500.2900 #### [facility] [address] [place], [address] EST GFR - AA 80 mL/min Normal >60 [facility] Comment on above: Result Comment: Afri can Stateless GFR Calc Performed By: #### L 400.0100, L100.0200, L500.2900 #### [facility] [address] [place], [address] GAP 7 Normal 5-15 [facility] Comment on above: Performed By: #### L 400.0100, L100.0200, L500.2900 #### [facility] [address] [place], [address] GFR/1.73 sq M.predicted among non-blacks MDRD (S/P/Bld) [Vol rate/Area] 66 mL/min/{1.73_m2} Normal >60 [facility] Comment on above: Result Comment: Non- GFR Calc Performed By: #### L 400.0100, L100.0200, L500.2900 #### [facility] [address] [place], [address] Globulin (S) [Mass/Vol] 3.0 g/dL Normal 2.2-4.2 [facility] Comment on above: Performed By: #### L 400.0100, L100.0200, L500.2900 #### [facility] [address] [place], [address] Glucose [Mass/Vol] 101 mg/dL Normal 74-[address] [facility] Comment on above: Result Comment: Fast ing Glucose result from 100 to 125 mg/dL suggests IMPAIRED HOMEOSTASIS per A.D.A. criteria. Performed By: #### L 400.0100, L100.0200, L500.2900 #### [facility] [address] [place], [address] LDH 204 U/L Normal 84-246 [facility] Comment on above: Performed By: #### L 400.0100, L100.0200, L500.2900 #### [facility] [address] [place], [address] Phosphate [Mass/Vol] 3.3 mg/dL Normal 2.5-4.9 [facility] Comment on above: Performed By: #### L 400.0100, L100.0200, L500.2900 #### [facility] [address] [place], [address] Potassium [Moles/Vol] 4.5 mmol/L Normal 3.5-5.1 [facility] Comment on above: Performed By: #### L 400.0100, L100.0200, L500.2900 #### [facility] [address] [place], [address] Sodium [Moles/Vol] 141 mmol/L Normal 136-[address] [facility] Comment on above: Performed By: #### L 400.0100, L100.0200, L500.2900 #### [facility] [address] [place], [address] T PROT 6.6 g/dL Normal 6.4-8.2 [facility] Comment on above: Performed By: #### L 400.0100, L100.0200, L500.2900 #### [facility] [address] [place], [address] Triglyceride [Mass/Vol] 111 mg/dL Normal [facility] Comment on above: Result Comment: The drugs N-Acetylcysteine and Metamizole may falsely depress this assay. Serum Triglycerides Reference Interval Normal <150 mg/dL Borderline high 150 - 199 mg/dL High 200 - 499 mg/dL Very High > or = 500 mg/dL Performed By: #### L 400.0100, L100.0200, L500.2900 #### [facility] [address] [place], [address] Urea nitrogen [Mass/Vol] 17 mg/dL Normal 7-18 [facility] Comment on above: Performed By: #### L 400.0100, L100.0200, L500.2900 #### [facility] [address] [place], [address] URIC 5.3 mg/dL Normal 2.6-6.0 [facility] Comment on above: Result Comment: The drugs N-Acetylcysteine and Metamizole may falsely depress this assay. Performed By: #### L 400.0100, L100.0200, L500.2900 #### [facility] [address] [place], [address] Erythrocyte Sed Rateon 11-19 -2023 SED RATE 5 mm/hr Normal 0-30 [facility] Comment on above: Order Comment: CBCD- IS DUPLICATE WITH EMP LABS PANEL Performed By: #### L 400.0100, L100.0200, L500.2900 #### [facility] [address] [place], [address] Urinalysis, Employeeon 11-19 BILIRUBIN URINE Negative Normal Negative [facility] Comment on above: Order Comment: Urine , Random Performed By: #### L 400.0100, L100.0200, L500.2900 #### [facility] [address] [place], [address] Clarity (U) Clear Normal Clear [facility] Comment on above: Order Comment: Urine , Random Performed By: #### L 400.0100, L100.0200, L500.2900 #### [facility] [address] [place], [address] Color (U) Yellow Normal Yellow [facility] Comment on above: Order Comment: Urine , Random Performed By: #### L 400.0100, L100.0200, L500.2900 #### [facility] [address] [place], [address] GLUCOSE, UR Normal Normal Normal [facility] Comment on above: Order Comment: Urine , Random Performed By: #### L 400.0100, L100.0200, L500.2900 #### [facility] [address] [place], [address] KETONE UR Negative Normal Negative [facility] Comment on above: Order Comment: Urine , Random Performed By: #### L 400.0100, L100.0200, L500.2900 #### [facility] [address] [place], [address] LEUK ESTERASE 25 /ul Abnormal Negative [facility] Comment on above: Order Comment: Urine , Random Performed By: #### L 400.0100, L100.0200, L500.2900 #### [facility] [address] [place], [address] Nitrite Ql (U) Negative Normal Negative [facility] Comment on above: Order Comment: Urine , Random Performed By: #### L 400.0100, L100.0200, L500.2900 #### [facility] [address] [place], [address] OCCULT BLOOD-UR Negative Normal Negative [facility] Comment on above: Order Comment: Urine , Random Performed By: #### L 400.0100, L100.0200, L500.2900 #### [facility] [address] [place], [address] pH UR 7.0 Normal 5.0 - 8.0 [facility] Comment on above: Order Comment: Urine , Random Performed By: #### L 400.0100, L100.0200, L500.2900 #### [facility] [address] [place], [address] PROT DIPSTX Negative Normal Negative [facility] Comment on above: Order Comment: Urine , Random Performed By: #### L 400.0100, L100.0200, L500.2900 #### [facility] [address] [place], [address] SP.GR. DIPSTX 1.005 Normal 1.002-1.03 0 [facility] Comment on above: Order Comment: Urine , Random Performed By: #### L 400.0100, L100.0200, L500.2900 #### [facility] [address] [place], [address] UROBILI Normal Normal Normal [facility] Comment on above: Order Comment: Urine , Random Performed By: #### L 400.0100, L100.0200, L500.2900 #### [facility] [address] [place], [address] Basophil percentageOrdered B y: Brennon Ramirez on 06-15-2023 Chloride [Moles/Vol] 103 mmol/L 98-107 [facility] Glucose [Mass/Vol] 131 mg/dL 74-106 [facility] Comment on above: Fasting Glucose resu lt greater than or equal to 126 mg/dL suggests DIABETES MELLITUS per A.D.A. criteria. Hemoglobin (Bld) [Mass/Vol] 11.6 g/dL 12.0-15.0 [facility] Potassium [Moles/Vol] 4.3 mmol/L 3.5-5.1 [facility] Sodium [Moles/Vol] 136 mmol/L 136-[address] [facility] WBC (Bld) [#/Vol] 15.4 10*3/uL 4.4-11.0 [facility] Determination of erythrocyte mean corpuscular volume (MCV)Ordered By: Brennon Ramirez on 06-15-2023 MCV (RBC) [Entitic vol] 87.6 fL 81-99 [facility] Erythrocyte distribution wid th ratioOrdered By: Brennon Ramirez on 06-15-2023 Erythrocyte distribution width (RBC) [Ratio] 12.2 % 11.6-14.6 [facility] Erythrocyte distribution wid th standard deviationOrdered By: Brennon Ramirez on 06-15-2023 Erythrocyte distribution width (RBC) [Entitic vol] 39.5 fL 35.1-43.9 [facility] Hematocrit Auto (Bld) [Volum e fraction]Ordered By: Brennon Ramirez on 06-15-2023 Hematocrit (Bld) [Volume fraction] 34.7 % 37-47 [facility] - Chemistry and C hemistry - challengeOrdered By: Brennon Ramirez on 06-15-2023 CO2 [Moles/Vol] 28.0 mmol/L 21.0-32.0 [facility] Urea nitrogen/Creatinine [Mass ratio] 16.4 mg/mg 10-20 [facility] - Hematology and Cell countsOrdered By: Brennon Ramirez on 06-15-2023 MCH (RBC) [Entitic mass] 29.3 pg 27.0-32.0 [facility] MCHC (RBC) [Mass/Vol] 33.4 g/dL 32-36 [facility] Platelet mean volume (Bld) [Entitic vol] 11.2 fL 6.2-12.0 [facility] Platelets (Bld) [#/Vol] 218 10*3/uL 150-450 [facility] No Panel InformationOrdered By: Brennon Ramirez on 06-15-2023 Estimated Creatinine Clearance Calc 64.64 ml/min [facility] Estimated GFR (MDRD) Amer 91 mL/min >60 [facility] Comment on above: GFR Calc Estimated GFR (MDRD) Non-Af Amer 75 mL/min >60 [facility] Comment on above: Non- GFR Calc RBC Auto (Bld) [#/Vol]Ordere d By: Brennon Ramirez on 06-15-2023 RBC (Bld) [#/Vol] 3.96 10*6/uL 4.2-5.4 [facility] Serum or plasma calcium josh urement (mass/volume)Ordered By: Brennon Ramirez on 06-15-2023 Calcium [Mass/Vol] 8.7 mg/dL 8.5-10.[address] [facility] Serum or plasma creatinine m easurement (mass/volume)Ordered By: Brennon Ramirez on 06-15-2023 Creatinine [Mass/Vol] 0.79 mg/dL 0.55-1.02 [facility] Comment on above: The validity of the calculated GFR & GFRAA in patients over 70 years has not been determined. Clinical correlation is essential. Serum or plasma urea nitroge n measurement (mass/volume)Ordered By: Brennon Ramirez on 06-15-2023 Urea nitrogen [Mass/Vol] 13 mg/dL 7-18 [facility] Thin prep Papanicolaou smear with manual screeningOrdered By: Brennon Ramirez on 06-15-2023 Thin prep Papanicolaou smear with manual screening 5 5-15 [facility] Thin prep Papanicolaou smear with manual screeningOrdered By: Brennon Ramirez on 06-14-2023 Thin prep Papanicolaou smear with manual screening 90 mg/dL 74-106 [facility] Comment on above: MANAGEMENT OF PATIEN T CARE PER NURSING PROTOCOL Basophil percentageOrdered B y: Mayra Escobedo on 06-03-2023 Basophil percentage 25-50 SEEN /hpf 0-5 [facility] Bilirubin Test strip Ql (U)O rdered By: Mayra Escobedo on 06-03-2023 Bilirubin Ql (U) Negative Negative [facility] Ketones Test strip Ql (U)Ord ered By: Mayra Escobedo on 06-03-2023 Ketones Ql (U) Negative Negative [facility] Mucus LM Ql (Urine sed)Order ed By: Mayra Escobedo on 06-03-2023 Mucus Ql (Urine sed) 0 SEEN /hpf [facility] Nitrite Test strip Ql (U)Ord ered By: Mayra Escobedo on 06-03-2023 Nitrite Ql (U) Negative Negative [facility] No Panel InformationOrdered By: Mayra Escobedo on 06-03-2023 Urine RBC 0-5 SEEN /hpf 0-5 [facility] Protein Test strip Ql (U)Ord ered By: Mayra Escobedo on 06-03-2023 Protein Ql (U) 30 mg/dl Negative [facility] Squamous epithelial cells de tection in urine sediment by light microscopyOrdered By: Mayra Escobedo on 06-03-2023 Epithelial cells.squamous LM Ql (Urine sed) 10-25 SEEN /hpf 5-10 [facility] Urine blood detectionOrdered By: Mayra Escobedo on 06-03-2023 RBC Ql (U) 10 /ul Negative [facility] Urine clarityOrdered By: Adrián Escobedo on 06-03-2023 Clarity (U) Clear Clear [facility] Urine color determinationOrd ered By: Mayra Escobedo on 06-03-2023 Color (U) Yellow Yellow [facility] Urine glucose detectionOrder ed By: Mayra Escobedo on 06-03-2023 Glucose Ql (U) Normal mg/dl Normal [facility] Urine leukocyte esterase det ection by dipstickOrdered By: Mayra Escobedo on 06-03-2023 Leukocyte esterase Test strip Ql (U) 500 /ul Negative [facility] Urine pHOrdered By: Mayra Escobedo on 06-03-2023 pH (U) 6.0 [pH] 5.0 - 8.0 [facility] Urine sediment bacteria coun t by microscopy (number/high power field)Ordered By: Mayra Escobedo on 06-03-2023 Bacteria LM.HPF (Urine sed) [#/Area] 1 /[HPF] None Seen [facility] Urine specific gravity measu rementOrdered By: Mayra Escobedo on 06-03-2023 Specific gravity (U) [Rel density] 1.015 1.002-1.03 0 [facility] Urine urobilinogen measureme ntOrdered By: Mayra Escobedo on 06-03-2023 Urobilinogen Ql (U) Normal mg/dl Normal [facility] Absolute lymphocyte countOrd ered By: Brennon Schneidermer on 06-02-2023 Lymphocytes Auto (Unsp spec) [#/Vol] 1.67 10*3/uL 0.83-4.51 [facility] Automated lymphocyte count a s percentage of total leukocytesOrdered By: Brennonvalerie Ramirez on 06-02-2023 Lymphocytes/100 WBC Auto (Unsp spec) 36.5 % 19-41 [facility] Basophil percentageOrdered B y: Mayra Escobedo on 06-02-2023 Bilirubin [Mass/Vol] 0.40 mg/dL 0.20-1.00 [facility] Comment on above: For patients on eltr ombopag therapy, use of Dimension [place] TBIL is not recommended. Chloride [Moles/Vol] 107 mmol/L 98-107 [facility] Cholesterol [Mass/Vol] 227 mg/dL <200 [facility] Comment on above: <200 mg/dL Desirable 200-240 mg/dL Borderline >240 mg/dL High Risk Glucose [Mass/Vol] 112 mg/dL 74-[address] [facility] Comment on above: Fasting Glucose resu lt from 100 to 125 mg/dL suggests IMPAIRED HOMEOSTASIS per A.D.A. criteria. Potassium [Moles/Vol] 4.2 mmol/L 3.5-5.1 [facility] Protein [Mass/Vol] 7.1 g/dL 6.4-8.[address] [facility] Sodium [Moles/Vol] 138 mmol/L 136-[address] [facility] Triglyceride [Mass/Vol] 109 mg/dL <199 [facility] Comment on above: The drugs N-Acetylcy steine and Metamizole may falsely depress this assay.Serum Triglycerides Reference Interval Normal <150 mg/dL Borderline high 150 - 199 mg/dL High 200 - 499 mg/dL Very High > or = 500 mg/dL Basophil percentageOrdered B y: Brennon Ramirez on 06-02-2023 Basophils/100 WBC (Bld) 0.7 % 0-1 [facility] Eosinophils/100 WBC (Bld) 0.7 % 0-5 [facility] Monocytes/100 WBC (Bld) 11.6 % 0-10 [facility] Neutrophils (Bld) [#/Vol] 2.3 10*3/uL 2.0-7.7 [facility] Neutrophils/100 WBC (Bld) 50.3 % 47-70 [facility] Immature granulocytes/100 WB C Auto (Bld)Ordered By: Brennon Ramirez on 06-02-2023 Immature granulocytes/100 WBC (Bld) 0.200 % 0.0-0.9 [facility] Comment on above: IG% - Immature Granu locytes (promyelocytes, myelocytes and metamyelocytes) > 1% indicates that a LEFT SHIFT is Present. Laboratory - Chemistry and C hemistry - challengeOrdered By: Mayra Escobedo on 06-02-2023 Albumin/Globulin [Mass ratio] 1.2 {ratio} 0.9-2.4 [facility] ALP [Catalytic activity/Vol] 67 U/L 45-117 [facility] ALT [Catalytic activity/Vol] 24 U/L 13-56 [facility] Cholesterol in HDL [Mass/Vol] 59 mg/dL >40 [facility] Comment on above: The drugs N-Acetylcy steine and Metamizole may falsely depress this assay. Reference Range HDL <40 mg/dL Low HDL Cholesterol HDL >or= 60 mg/dL High HDL Cholesterol Cholesterol in LDL [Mass/Vol] 146 mg/dL 0-130 [facility] CO2 [Moles/Vol] 27.0 mmol/L 21.0-32.0 [facility] Globulin (S) [Mass/Vol] 3.3 g/dL 2.2-4.2 [facility] Urea nitrogen/Creatinine [Mass ratio] 17.7 mg/mg 10-20 [facility] - Chemistry and C hemistry - challengeOrdered By: Moreno Mujica on 06-02-2023 Magnesium [Mass/Vol] 2.3 mg/dL 1.6-2.6 [facility] - Hematology and Cell countsOrdered By: Brennon Ramirez on 06-02-2023 Nucleated RBC/100 WBC (Bld) [Ratio] 0 % 0-5 [facility] No Panel InformationOrdered By: Mayra Escobedo on 06-02-2023 Estimated GFR (MDRD) Amer 73 mL/min >60 [facility] Comment on above: GFR Calc Estimated GFR (MDRD) Non-Af Amer 61 mL/min >60 [facility] Comment on above: Non- GFR Calc Vitamin D 25-Hydroxy 69.0 ng/mL [facility] Comment on above: Vitamin D 25(OH) Sta tus Range Deficiency <20 ng/mL (50nmol/L) Insufficiency 20 - 30 ng/mL (50 - 75 nmol/L) Sufficiency 30 - 100 ng/mL (75 - 250 nmol/L) Toxicity >100 ng/mL (>250 nmol/L) VLDL Cholesterol 22 mg/dL 5-40 [facility] No Panel InformationOrdered By: Brennon Ramirez on 06-02-2023 Nasal Screen MRSA/MSSA [facility] Serum or plasma calcium josh urement (mass/volume)Ordered By: Mayra Escobedo on 06-02-2023 Calcium [Mass/Vol] 9.2 mg/dL 8.5-10.[address] [facility] Serum or plasma creatinine m easurement (mass/volume)Ordered By: Mayra Escobedo on 06-02-2023 Creatinine [Mass/Vol] 0.96 mg/dL 0.55-1.02 [facility] Comment on above: The validity of the calculated GFR & GFRAA in patients over 70 years has not been determined. Clinical correlation is essential. Serum or plasma thyroid stim ulating hormone (TSH) measurement (units/volume)Ordered By: Brennon Ramirez on 06-02-2023 TSH Qn 0.37 uIU/mL 0.358-3.74 [facility] Serum or plasma urea nitroge n measurement (mass/volume)Ordered By: Mayra Escobedo on 06-02-2023 Urea nitrogen [Mass/Vol] 17 mg/dL 7-18 [facility] Thin prep Papanicolaou smear with manual screeningOrdered By: Mayra Escobedo on 06-02-2023 Thin prep Papanicolaou smear with manual screening 3.8 g/dL 3.2-5.0 [facility] Thin prep Papanicolaou smear with manual screening 17 U/L 15-37 [facility] Thin prep Papanicolaou smear with manual screening 4 5-15 [facility] Thin prep Papanicolaou smear with manual screeningOrdered By: Brennon Ramirez on 06-02-2023 Thin prep Papanicolaou smear with manual screening 3.9 g/dL 3.2-5.0 [facility] HgA1C , Office ([phone])Ordere d By: Yuki Fischer on 12-14-2022 HbA1c (Bld) [Mass fraction] 5.5 % Normal 4.6 - 7.1 [facility]; [facility] Work Phone: POTASSIUM SERUM ([phone])Order ed By: Compound Worker on 12-14-2022 Potassium [Moles/Vol] 5.0 mmol/L Normal 3.5-5.2 [facility]; [facility] Work Phone: TSH (THYROID STIMULATING HOR COLIN) ([phone])Ordered By: Compound Worker on 12-14-2022 TSH Qn 14.100 {uIU/mL} Abnormal 0.450-4.50 0 [facility]; [facility] Work Phone: Absolute lymphocyte countOrd ered By: HEALTH ASSESSMENT on 12-09-2022 Lymphocytes Auto (Unsp spec) [#/Vol] 2.01 10*3/uL 0.83-4.51 [facility] Absolute reticulocyte countO rdered By: HEALTH ASSESSMENT on 12-09-2022 Reticulocytes (Bld) [#/Vol] 0.00 10*3/uL 0-5 [facility] Basophil percentageOrdered B y: HEALTH ASSESSMENT on 12-09-2022 Basophil percentage 3.8 mg/dL 2.5-4.9 [facility] Bilirubin [Mass/Vol] 0.40 mg/dL 0.20-1.00 [facility] Comment on above: For patients on eltr ombopag therapy, use of Dimension [place] TBIL is not recommended. Chloride [Moles/Vol] 107 mmol/L 98-107 [facility] Cholesterol [Mass/Vol] 242 mg/dL <200 [facility] Comment on above: <200 mg/dL Desirable 200-240 mg/dL Borderline >240 mg/dL High Risk Glucose [Mass/Vol] 105 mg/dL 74-[address] [facility] Comment on above: Fasting Glucose resu lt from 100 to 125 mg/dL suggests IMPAIRED HOMEOSTASIS per A.D.A. criteria. LDH [Catalytic activity/Vol] 212 U/L 84-246 [facility] Neutrophils (Bld) [#/Vol] 4.1 10*3/uL 2.0-7.7 [facility] Potassium [Moles/Vol] 5.2 mmol/L 3.5-5.1 [facility] Protein [Mass/Vol] 7.1 g/dL 6.4-8.[address] [facility] Sodium [Moles/Vol] 139 mmol/L 136-[address] [facility] Triglyceride [Mass/Vol] 100 mg/dL <199 [facility] Comment on above: The drugs N-Acetylcy steine and Metamizole may falsely depress this assay.Serum Triglycerides Reference Interval Normal <150 mg/dL Borderline high 150 - 199 mg/dL High 200 - 499 mg/dL Very High > or = 500 mg/dL WBC (Bld) [#/Vol] 6.9 10*3/uL 4.4-11.[address] [facility] Blood erythrocytes count (nu mber/volume)Ordered By: HEALTH ASSESSMENT on 12-09-2022 RBC (Bld) [#/Vol] 4.66 10*6/uL 4.2-5.4 [facility] Blood hemoglobin measurement (mass/volume)Ordered By: HEALTH ASSESSMENT on 12-09-2022 Hemoglobin (Bld) [Mass/Vol] 13.6 g/dL 12.0-15.0 [facility] Blood platelet mean volumeOr dered By: HEALTH ASSESSMENT on 12-09-2022 Platelet mean volume (Bld) [Entitic vol] 10.9 fL 6.2-12.0 [facility] Determination of erythrocyte mean corpuscular volume (MCV)Ordered By: HEALTH ASSESSMENT on 12-09-2022 MCV (RBC) [Entitic vol] 91.4 fL 81-99 [facility] Direct bilirubinOrdered By: HEALTH ASSESSMENT on 12-09-2022 Bilirubin.direct [Mass/Vol] 0.12 mg/dL 0.00-0.30 [facility] Hematocrit Auto (Bld) [Volum e fraction]Ordered By: HEALTH ASSESSMENT on 12-09-2022 Hematocrit (Bld) [Volume fraction] 42.6 % 37-47 [facility] - Chemistry and C hemistry - challengeOrdered By: HEALTH ASSESSMENT on 12-09-2022 ALP [Catalytic activity/Vol] 82 U/L 45-117 [facility] ALT [Catalytic activity/Vol] 25 U/L 13-56 [facility] Cholesterol.total/Chol esterol in HDL [Mass ratio] 4.00 {ratio} [facility] CO2 [Moles/Vol] 28.0 mmol/L 21.0-32.0 [facility] Globulin (S) [Mass/Vol] 3.3 g/dL 2.2-4.2 [facility] Urea nitrogen/Creatinine [Mass ratio] 19.4 mg/mg 12-09 [facility] - Hematology and Cell countsOrdered By: HEALTH ASSESSMENT on 12-09-2022 Erythrocyte distribution width (RBC) [Entitic vol] 42.8 fL 35.1-43.9 [facility] Erythrocyte distribution width (RBC) [Ratio] 12.8 % 11.6-14.6 [facility] MCH (RBC) [Entitic mass] 29.2 pg 27.0-32.0 [facility] Nucleated RBC/100 WBC (Bld) [Ratio] 0 % 0-5 [facility] MCHC Auto (RBC) [Mass/Vol]Or dered By: HEALTH ASSESSMENT on 12-09-2022 MCHC (RBC) [Mass/Vol] 31.9 g/dL 32-36 [facility] No Panel InformationOrdered By: HEALTH ASSESSMENT on 12-09-2022 Estimated GFR (MDRD) Amer 76 mL/min >60 [facility] Comment on above: GFR Calc Estimated GFR (MDRD) Non-Af Amer 63 mL/min >60 [facility] Comment on above: Non- GFR Calc Platelets bldOrdered By: PORTER LTH ASSESSMENT on 12-09-2022 Platelets (Bld) [#/Vol] 227 10*3/uL 150-450 [facility] Segmented neutrophils/100 WB C Auto (Bld)Ordered By: HEALTH ASSESSMENT on 12-09-2022 Segmented neutrophils/100 WBC (Bld) 59.8 % 47-70 [facility] Serum or plasma albumin josh urement (mass/volume)Ordered By: HEALTH ASSESSMENT on 12-09-2022 Albumin [Mass/Vol] 3.8 g/dL 3.2-5.[address] [facility] Serum or plasma albumin/glob ulin mass ratioOrdered By: HEALTH ASSESSMENT on 12-09-2022 Albumin/Globulin [Mass ratio] 1.2 {ratio} 0.9-2.4 [facility] Serum or plasma calcium josh urement (mass/volume)Ordered By: HEALTH ASSESSMENT on 12-09-2022 Calcium [Mass/Vol] 9.3 mg/dL 8.5-10.[address] [facility] Serum or plasma cholesterol in HDL measurement (mass/volume)Ordered By: HEALTH ASSESSMENT on 12-09-2022 Cholesterol in HDL [Mass/Vol] 60 mg/dL >40 [facility] Comment on above: The drugs N-Acetylcy steine and Metamizole may falsely depress this assay. Reference Range HDL <40 mg/dL Low HDL Cholesterol HDL >or= 60 mg/dL High HDL Cholesterol Serum or plasma cholesterol in VLDL measurement (mass/volume)Ordered By: HEALTH ASSESSMENT on 12-09-2022 Cholesterol in VLDL [Mass/Vol] 20 mg/dL 5-40 [facility] Serum or plasma creatinine m easurement (mass/volume)Ordered By: HEALTH ASSESSMENT on 12-09-2022 Creatinine [Mass/Vol] 0.93 mg/dL 0.55-1.02 [facility] Comment on above: The validity of the calculated GFR & GFRAA in patients over 70 years has not been determined. Clinical correlation is essential. Serum or plasma low density lipoprotein (LDL) cholesterol measurement (mass/volume)Ordered By: HEALTH ASSESSMENT on 12-09-2022 Cholesterol in LDL [Mass/Vol] 162 mg/dL 0-130 [facility] Serum or plasma urea nitroge n measurement (mass/volume)Ordered By: HEALTH ASSESSMENT on 12-09-2022 Urea nitrogen [Mass/Vol] 18 mg/dL 7-18 [facility] Serum or plasma uric acid me asurement (mass/volume)Ordered By: HEALTH ASSESSMENT on 12-09-2022 Urate [Mass/Vol] 5.3 mg/dL 2.6-6.0 [facility] Comment on above: The drugs N-Acetylcy steine and Metamizole may falsely depress this assay. Thin prep Papanicolaou smear with manual screeningOrdered By: HEALTH ASSESSMENT on 12-09-2022 Thin prep Papanicolaou smear with manual screening 18 U/L 15-37 [facility] Thin prep Papanicolaou smear with manual screening 4 5-15 [facility] Absolute lymphocyte countOrd ered By: Mayra Escobedo on 07-01-2022 Lymphocytes Auto (Unsp spec) [#/Vol] 2.21 10*3/uL 0.83-4.51 [facility] Basophil percentageOrdered B y: Mayra Escobedo on 07-01-2022 Basophils/100 WBC (Bld) 0.1 % 0-1 [facility] Bilirubin [Mass/Vol] 0.40 mg/dL 0.20-1.00 [facility] Comment on above: For patients on eltr ombopag therapy, use of Dimension [place] TBIL is not recommended. Chloride [Moles/Vol] 103 mmol/L 98-107 [facility] Eosinophils/100 WBC (Bld) 0.1 % 0-5 [facility] Glucose [Mass/Vol] 112 mg/dL 74-[address] [facility] Comment on above: Fasting Glucose resu lt from 100 to 125 mg/dL suggests IMPAIRED HOMEOSTASIS per A.D.A. criteria. Neutrophils (Bld) [#/Vol] 4.9 10*3/uL 2.0-7.7 [facility] Neutrophils/100 WBC (Bld) 62.8 % 47-70 [facility] Potassium [Moles/Vol] 4.5 mmol/L 3.5-5.1 [facility] Protein [Mass/Vol] 7.2 g/dL 6.4-8.[address] [facility] Sodium [Moles/Vol] 137 mmol/L 136-[address] [facility] WBC (Bld) [#/Vol] 7.8 10*3/uL 4.4-11.[address] [facility] Blood erythrocytes count (nu mber/volume)Ordered By: Mayra Escobedo on 07-01-2022 RBC (Bld) [#/Vol] 4.39 10*6/uL 4.2-5.4 [facility] Blood hemoglobin measurement (mass/volume)Ordered By: Mayra Escobedo on 07-01-2022 Hemoglobin (Bld) [Mass/Vol] 12.9 g/dL 12.0-15.0 [facility] Blood lymphocytes/100 leukoc ytesOrdered By: Mayra Escobedo on 07-01-2022 Lymphocytes/100 WBC (Bld) 28.2 % 19-41 [facility] Blood monocytes/100 leukocyt esOrdered By: Mayra Escobedo on 07-01-2022 Monocytes/100 WBC (Bld) 8.4 % 0-10 [facility] Blood platelet mean volumeOr dered By: Mayra Escobedo on 07-01-2022 Platelet mean volume (Bld) [Entitic vol] 11.0 fL 6.2-12.0 [facility] Determination of erythrocyte mean corpuscular volume (MCV)Ordered By: Mayra Escobedo on 07-01-2022 MCV (RBC) [Entitic vol] 90.7 fL 81-99 [facility] Erythrocyte sedimentation ra teOrdered By: Mayra Escobedo on 07-01-2022 ESR (Bld) [Velocity] 8 mm/h 0-30 [facility] Hematocrit Auto (Bld) [Volum e fraction]Ordered By: Mayra Escobedo on 07-01-2022 Hematocrit (Bld) [Volume fraction] 39.8 % 37-47 [facility] - Chemistry and C hemistry - challengeOrdered By: Mayra Escobedo on 07-01-2022 ALP [Catalytic activity/Vol] 77 U/L 45-117 [facility] ALT [Catalytic activity/Vol] 34 U/L 13-56 [facility] CO2 [Moles/Vol] 28.0 mmol/L 21.0-32.0 [facility] Globulin (S) [Mass/Vol] 3.2 g/dL 2.2-4.2 [facility] Urea nitrogen/Creatinine [Mass ratio] 17.5 mg/mg 10-20 [facility] - Hematology and Cell countsOrdered By: Mayra Escobedo on 07-01-2022 Erythrocyte distribution width (RBC) [Entitic vol] 43.4 fL 35.1-43.9 [facility] Erythrocyte distribution width (RBC) [Ratio] 13.1 % 11.6-14.6 [facility] Immature granulocytes/100 WBC (Bld) 0.400 % 0.0-0.9 [facility] Comment on above: IG% - Immature Granu locytes (promyelocytes, myelocytes and metamyelocytes) > 1% indicates that a LEFT SHIFT is Present. MCH (RBC) [Entitic mass] 29.4 pg 27.0-32.0 [facility] Nucleated RBC/100 WBC (Bld) [Ratio] 0 % 0-5 [facility] MCHC Auto (RBC) [Mass/Vol]Or dered By: Mayra Escobedo on 07-01-2022 MCHC (RBC) [Mass/Vol] 32.4 g/dL 32-36 [facility] No Panel InformationOrdered By: Mayra Escobedo on 07-01-2022 C-Reactive Protein High Sensitivity 3.08 mg/L <3.00 [facility] Comment on above: Low Relative Risk of CVD <1.0 mg/L Average Relative Risk of CVD 1.0 - 3.0 mg/L High Relative Risk of CVD >3.0 mg/L Estimated GFR (MDRD) Amer 72 mL/min >60 [facility] Comment on above: GFR Calc Estimated GFR (MDRD) Non-Af Amer 60 mL/min >60 [facility] Comment on above: Non- GFR Calc Platelets bldOrdered By: Adrián Escobedo on 07-01-2022 Platelets (Bld) [#/Vol] 239 10*3/uL 150-450 [facility] Serum or plasma albumin josh urement (mass/volume)Ordered By: Mayra Escobedo on 07-01-2022 Albumin [Mass/Vol] 4.0 g/dL 3.2-5.[address] [facility] Serum or plasma albumin/glob ulin mass ratioOrdered By: Mayra Escobedo on 07-01-2022 Albumin/Globulin [Mass ratio] 1.2 {ratio} 0.9-2.4 [facility] Serum or plasma calcium josh urement (mass/volume)Ordered By: Mayra Escobedo on 07-01-2022 Calcium [Mass/Vol] 9.4 mg/dL 8.5-10.[address] [facility] Serum or plasma creatinine m easurement (mass/volume)Ordered By: Mayra Escobedo on 07-01-2022 Creatinine [Mass/Vol] 0.97 mg/dL 0.55-1.02 [facility] Comment on above: The validity of the calculated GFR & GFRAA in patients over 70 years has not been determined. Clinical correlation is essential. Serum or plasma urea nitroge n measurement (mass/volume)Ordered By: Mayra Escobedo on 07-01-2022 Urea nitrogen [Mass/Vol] 17 mg/dL 7-18 [facility] Thin prep Papanicolaou smear with manual screeningOrdered By: Mayra Escobedo on 07-01-2022 Thin prep Papanicolaou smear with manual screening 17 U/L 15- [facility] Thin prep Papanicolaou smear with manual screening 6 5-15 [facility] Rapid Strep Test, Office ([id number])Ordered By: Briana Fitzgerald on 10-25-2018 S. pyogenes Ag EIA Ql (Throat) Negative Normal [facility]; [facility] Work Phone: S. pyogenes Ag IA Ql (Unsp spec) Negative Normal [facility] Work Phone: THROAT CULTURE ([id number])Ordere d By: Compound Worker on 10-25-2018 Bacteria identified Respiratory culture Nom (Unsp spec) Final report Normal [facility] Work Phone: Comment on above: PATIENT NOT FASTINGP ERFORMED BY: [employer] ([place] [place] [id number] Information: [id number] SRC:TH Bacteria identified Respiratory culture Nom (Unsp spec) RRF Normal [facility] Work Phone: Comment on above: Routine respiratory ventura PATIENT NOT FASTINGP ERFORMED BY: [employer] ([place] [place] [id number] Information: [id number] SRC:TH Throat Culture ([id number])Ordere d By: Compound Worker on 07-18-2018 Bacteria identified Respiratory culture Nom (Unsp spec) RRF Normal [facility] Work Phone: Comment on above: Routine respiratory ventura PERFORMED BY: [facility] [employer] [id number] Information: SRC:TH Bacteria identified Respiratory culture Nom (Unsp spec) Final report Normal [facility] Work Phone: Comment on above: PERFORMED BY: [id number] [facility] [id number] Information: SRC:TH THROAT CULTURE ([id number])Ordere d By: Compound Worker on 06-19-2018 Bacteria identified Respiratory culture Nom [...] A). (CLSI) PATIENT NOT FASTINGP ERFORMED BY: Mosa Records6370 [facility]romboGenicsNov[facility] [id number] Information: SRC:TH Bacteria identified Respiratory culture Nom (Unsp spec) Final report Abnormal [facility] Work Phone: Comment on above: PATIENT NOT FASTINGP ERFORMED BY: [employer]6370 [employer] [facility] [id number] Information: SRC:TH CBC, EmployeeOrdered By: Timi tem [employer] Signal Operator on 11-09-2017 Absolute Lymph 1.87 {X10_3/ul} Normal [...] mass conc (RBC) 32.8 {g/gl} Normal 32-36 [facility] Work Phone: MCV Auto Entitic volume (RBC) 90.2 fL Normal 81-99 [facility] Work Phone: Monocytes/100 WBC Auto (Bld) 10.0 % Normal 0-10 [facility] Work Phone: Neutrophils/100 WBC Auto (Bld) 53.3 % Normal 47-70 [facility] Work Phone: Platelet mean volume Auto Entitic volume (Bld) 11.3 fL Normal 6.2-12.0 [facility] Work Phone: Platelets Auto #/vol (Bld) 230 10*3/uL Normal 150-450 [facility] Work Phone: RBC Auto #/vol (Bld) 4.47 {M/mm3} Normal 4.2-5.4 [facility] Work Phone: RDW SD 41.0 fL Normal 35.1-43.9 [facility] Work Phone: WBC Auto #/vol (Bld) 5.6 10*3/uL Normal 4.4-11.0 [facility] prehensive Internal Medicine Work Phone: Employee ProfileOrdered By: Compound Worker on 11-09-2017 A/G 1.2 {RATIO} Normal 0.9-2.4 [facility] Work Phone: Albumin mass conc 4.0 g/dL Normal 3.2-5.0 Compreh ensive [facility] Medicine Work Phone: ALP enzyme act/vol 93 U/L Normal 45-117 Compre [facility] Internal Medicine Work Phone: ALT enzyme act/vol 32 U/L Normal 13-56 [facility] Work Phone: AST enzyme act/vol 20 U/L Normal 15-37 [facility] Work Phone: Bilirubin mass conc 0.40 mg/dL Normal 0.20-1.00 [facility] Work Phone: Bilirubin.direct mass conc 0.11 mg/dL Normal 0.00-0.30 [facility] Work Phone: BUN/CRE 17.9 {RATIO} Normal 10-20 Comprehens[facility] e [facility] Work Phone: Calcium mass conc 9.1 mg/dL Normal 8.5-10.1 Compreh ensive [facility] Work Phone: Chloride molar conc 105 mmol/L Normal 98-107 Compr ensive [facility] Work Phone: CHOL:HDL 3.00 1 Normal [facility] Work Phone: Cholesterol in HDL mass conc 62 mg/dL Normal [facility] Work Phone: Comment on above: The drugs N-Acetylcy steine and Metamizole may falselydepress this assay. Reference Range HDL <40 mg/dL Low HDL Cholesterol HDL >or= 60 mg/dL High HDL Cholesterol Cholesterol in LDL mass conc 106 mg/dL Normal 0-130 [facility] Work Phone: Cholesterol in VLDL mass conc 21 mg/dL Normal 5-40 [facility] Work Phone: Cholesterol mass conc 189 mg/dL Normal Com prehensive [facility] Medicine Work Phone: Comment on above: <200 mg/dL Desirable 200-240 mg/dL Borderline >240 mg/dL High Risk CO2 molar conc 28.0 mmol/L Normal 21.0-32.[address] [facility] Work Phone: Creatinine mass conc [...] above: Please note revised GLUCOSE reference range /02/2018. LDH 209 U/L Normal 84-246 [facility] Work Phone: Phosphate mass conc 4.1 mg/dL Normal 2.5-4.9 Compr [facility] Internal Medicine Work Phone: Potassium molar conc 5.3 mmol/L Abnormal 3.5-5.1 Comp rehensive Internal Medicine Work Phone: Protein mass conc 7.4 g/dL Normal 6.4-8.2 Compreh ensive [facility] Work Phone: Sodium molar conc 138 mmol/L Normal 136-145 Compreh ensive [facility] Work Phone: Triglyceride mass conc 103 mg/dL Normal [facility] Work Phone: Comment on above: The drugs N-Acetylcy steine and Metamizole may falselydepress this assay.Serum Triglycerides Reference Interval Normal <150 mg/dL Borderline high 150 - 199 mg/dL High 200 - 499 mg/dL Very High > or = 500 mg/dL Urea nitrogen mass conc 17 mg/dL Normal 7-18 [facility] Work Phone: URIC 4.6 mg/dL Normal 2.6-6.0 [facility] Work Phone: Comment on above: The drugs N-Acetylcy steine and Metamizole may falselydepress this assay. Nicotine Urine Drug ScreenOr dered By: Compound Worker on 11-09-2017 COT DRG SCREEN Negative Normal [facility] Work Phone: Comment on above: Cotinine is the firs t-stage metabolite of Nicotine. TO BE CONFIRMED Normal [facility] Internal Medicine Work Phone: Comment on above: [...] positive results are used. Urinalysis, EmployeeOrdered By: Compound Worker on 11-09-2017 CLARITY Clear Normal [facility] Internal [facility] Work Phone: COLOR Yellow Normal [facility] Work Phone: GLUCOSE, UR Normal Normal [facility] Work Phone: LEUK ESTERASE 500 /ul Abnormal [facility] Work Phone: OCCULT BLOOD-UR Negative Normal [facility] Internal Medicine Work Phone: pH UR 6.0 1 Normal 5.0 - 8.0 [facility] Internal [facility] Work Phone: SP.GR. DIPSTX 1.015 1 Normal 1.002-1.03 0 [facility] Internal [facility] Work Phone: CBC, EmployeeOrdered By: Timi tem [employer] Signal Operator on 11-10-2016 Absolute Lymph 1.74 {X10_3/ul} Normal 0.83-4.51 [facility] Work Phone: Absolute Neut 3.1 {X10_3/uL} Normal 2.0-7.7 Compreh ensive [facility] Medicine Work Phone: Basophils/100 WBC Auto (Bld) 0.6 % Normal 0-1 [facility] Work Phone: Eosinophils/100 WBC Auto (Bld) 0.0 % Normal 0-5 [facility] Work Phone: Erythrocyte distribution width Auto Ratio (RBC) 13.1 % Normal 11.6-14.6 [facility] Work Phone: Hematocrit Auto Volume Fraction (Bld) 40.2 % Normal 37-47 [facility] Work Phone: Hemoglobin mass conc (Bld) 12.8 g/dL Normal 12.0-15.0 [facility] Work Phone: Lymphocytes/100 WBC Auto (Bld) 32.2 % Normal 19-41 [facility] Work Phone: MCH Auto Entitic mass (RBC) 28.6 pg Normal 27.0-32.0 [facility] Work Phone: MCHC Auto mass conc (RBC) 31.8 {g/gl} Abnormal 32-36 [facility] Work Phone: MCV Auto Entitic volume (RBC) 89.7 fL Normal 81-99 [facility] Work Phone: Monocytes/100 WBC Auto (Bld) 9.3 % Normal 0-10 [facility] Work Phone: Neutrophils/100 WBC Auto (Bld) 57.7 % Normal 47-70 [facility] Work Phone: Platelet mean volume Auto Entitic volume (Bld) 10.8 fL Normal 6.2-12.0 [facility] Work Phone: Platelets Auto #/vol (Bld) 231 10*3/uL Normal 150-450 [facility] Work Phone: RBC Auto #/vol (Bld) 4.48 {M/mm3} Normal 4.2-5.4 [facility] Work Phone: RDW SD 43.1 fL Normal 35.1-43.9 [facility] Work Phone: WBC Auto #/vol (Bld) 5.4 10*3/uL Normal 4.4-11.0 [facility] Work Phone: Employee ProfileOrdered By: Compound Worker on 11-10-2016 A/G 1.2 {RATIO} Normal 0.9-2.4 [facility] Work Phone: Albumin mass conc 4.0 g/dL Normal 3.4-5.0 [facility] ensive Internal Medicine Work Phone: ALP enzyme act/vol 90 U/L Normal 45-117 [facility] Work Phone: ALT enzyme act/vol 24 U/L Normal 12-[address] [facility] Internal [facility] Work Phone: AST enzyme act/vol 14 U/L Abnormal 15-37 [facility] Work Phone: Bilirubin mass conc 0.50 mg/dL Normal 0.20-1.00 Compr [facility] Internal Medicine Work Phone: Bilirubin.direct mass conc 0.06 mg/dL Normal 0.00-0.30 [facility] Work Phone: BUN/CRE 17.3 {RATIO} Normal 10-20 Comprehensiv e Internal Medicine Work Phone: Calcium mass conc 8.8 mg/dL Normal 8.5-10.1 Compreh ensive Internal Medicine Work Phone: Chloride molar conc 104 mmol/L Normal 98-107 Compr ensive [facility] Work Phone: CHOL:HDL 4.20 1 Normal [facility] Work Phone: Cholesterol in HDL mass conc 67 mg/dL Normal [facility] Work Phone: Comment [...] Work Phone: URIC 5.1 mg/dL Normal 2.6-6.0 [facility] Work Phone: Comment on above: The drugs N-Acetylcy steine and Metamizole may falselydepress this assay. Nicotine Urine Drug ScreenOr dered By: Compound Worker on 11-10-2016 COT DRG SCREEN Negative Normal [facility] Work Phone: Comment on above: Cotinine is the firs t-stage metabolite of Nicotine. TO BE CONFIRMED Normal [facility] Work Phone: Comment [...] positive results are used. Urinalysis, EmployeeOrdered By: Compound Worker on 11-10-2016 BILIRUBIN URINE Negative Normal Comprehen [facility] Internal Medicine Work Phone: CLARITY Clear Normal [facility] Work Phone: COLOR Yellow Normal [facility] Work Phone: GLUCOSE, UR Normal Normal [facility] Work Phone: LEUK ESTERASE 100 /ul Abnormal Comprehensi Internal Medicine Work Phone: pH UR 6.0 1 Normal 5.0 - 8.0 [facility] Work Phone: SP.GR. DIPSTX 1.010 1 Normal 1.002-1.03 0 [facility] Work Phone: CBC, EmployeeOrdered By: Timi tem [employer] Signal Operator on 11-05-2015 Absolute Lymph 1.70 {X10_3/ul} Normal 0.83-4.51 Compr ehensive Internal Medicine Work Phone: Absolute Neut 3.6 {X10_3/uL} Normal 2.0-7.7 Compreh ensive [facility] Work Phone: Basophils/100 WBC Auto (Bld) 0.3 % Normal 0-1 [facility] Work Phone: Eosinophils/100 WBC Auto (Bld) 0.5 % Normal 0-5 [facility] Work Phone: Erythrocyte distribution width Auto Ratio (RBC) 13.1 % Normal 11.6-14.6 [facility] Work Phone: Hematocrit Auto Volume Fraction (Bld) 41.3 % Normal 37-47 [facility] Work Phone: Hemoglobin mass conc (Bld) 13.5 g/dL Normal 12.0-15.0 [facility] Work [...] WBC Auto (Bld) 61.8 % Normal 47-70 [facility] Work Phone: Platelet mean volume Auto Entitic volume (Bld) 11.0 fL Normal 6.2-12.0 [facility] Work Phone: Platelets Auto #/vol (Bld) 228 10*3/uL Normal 150-450 [facility] Work Phone: RBC Auto #/vol (Bld) 4.63 {M/mm3} Normal 4.2-5.4 Co mprehensive [facility] Work Phone: RDW SD 42.6 fL Normal 35.1-43.9 [facility] Work Phone: WBC Auto #/vol (Bld) 5.8 10*3/uL Normal 4.4-11.0 [facility] Internal [facility] Work Phone: Employee ProfileOrdered By: Compound Worker on 11-05-2015 A/G 1.1 {RATIO} Normal 0.9-2.4 [facility] Work Phone: Albumin mass conc 3.8 g/dL Normal 3.4-5.0 [facility] Work Phone: ALP enzyme act/vol 96 U/L Normal 50-136 [facility] Work Phone: ALT enzyme act/vol 23 U/L Normal 12-[address] [facility] Internal [facility] Work Phone: AST enzyme act/vol 14 U/L Abnormal 15-[address] [facility] Internal [facility] Work Phone: Bilirubin mass conc 0.30 mg/dL Normal 0.20-1.00 [facility] Internal Medicine Work Phone: Bilirubin.direct mass conc 0.08 mg/dL Normal 0.00-0.30 [facility] Work Phone: BUN/CRE 17.2 {RATIO} Normal 10-20 Comprehensiv e [facility] Medicine Work Phone: Calcium mass conc 8.4 mg/dL Abnormal 8.5-10.1 Compreh ensive Internal Medicine Work Phone: Chloride molar conc 109 mmol/L Abnormal 98-107 Compr ensive [facility] Medicine Work Phone: CHOL:HDL 4.60 1 Normal [facility] Work Phone: Cholesterol in HDL mass conc 60 mg/dL Normal [facility] Work Phone: Comment on above: The drugs N-Acetylcy steine and Metamizole may falsely deressthis assay. Reference Range HDL <40 mg/dL Low HDL Cholesterol HDL >or= 60 mg/dL High HDL Cholesterol Cholesterol in LDL mass conc 195 mg/dL Abnormal 0-130 [facility] Work Phone: Cholesterol in VLDL mass conc 24 mg/dL Normal 5-40 [facility] Work Phone: Cholesterol mass conc 279 mg/dL Abnormal Com prehensive [facility] Work Phone: Comment on above: <200 mg/dL Desirable 200-240 mg/dL Borderline >240 mg/dL High Risk CO2 molar conc 29.0 mmol/L Normal 21.0-32.0 Comprehen sive [facility] Medicine Work Phone: Creatinine mass conc 0.93 mg/dL Normal 0.55-1.20 Comp rehensive Internal Medicine [...] assay. Nicotine Urine Drug ScreenOr dered By: Compound Worker on 11-05-2015 COT DRG SCREEN Negative Normal [facility] Work Phone: Comment on above: Cotinine is the firs t-stage metabolite of Nicotine. TO BE CONFIRMED Normal [facility] Work Phone: Comment on above: [...] positive results are used. Urinalysis, EmployeeOrdered By: Compound Worker on 11-05-2015 CLARITY Sl. Cloudy Normal [facility] Work Phone: COLOR Yellow Normal [facility] Work Phone: GLUCOSE, UR Normal Normal [facility] Work Phone: LEUK ESTERASE 500 /ul Abnormal Comprehensi ve Internal Medicine Work Phone: NITRITE UR Negative Normal [facility] Work Phone: OCCULT BLOOD-UR 10 /ul Abnormal Comprehen sive Internal Medicine Work Phone: pH UR 6.0 1 Normal 5.0 - 8.0 [facility] Work Phone: PROT DIPSTX 15 mg/dL Abnormal [facility] Work Phone: SP.GR. 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 Left ventricular Ejection fraction 70 % Invalid Interpretation Code [facility] Work Phone: CBC W/Diff, AutomatedOrdered By: Compound Worker on 09-04-2015 Absolute Lymph 2.19 {X10_3/ul} Normal 0.83-4.51 Compr ehensive Internal Medicine Work Phone: Absolute Neut 3.9 {X10_3/uL} Normal 2.0-7.7 Compreh ensive [facility] Medicine Work Phone: Basophils/100 WBC Auto (Bld) 0.3 % Normal 0-1 [facility] Work Phone: Eosinophils/100 WBC Auto (Bld) 2.1 % Normal 0-5 [facility] Work Phone: Erythrocyte distribution width Auto Ratio (RBC) 13.0 % Normal 11.6-14.6 [facility] Work Phone: Hematocrit Auto Volume Fraction (Bld) 38.0 % Normal 37-47 [facility] Work Phone: Hemoglobin (Bld) [Mass/Vol] 12.5 g/dL Normal 12.0-15.0 [facility] Work Phone: IM GRAN % 0.300 % Normal 0.0-0.9 [facility] Work Phone: Comment on above: IG% - Immature Granu locytes (promyelocytes, myelocytes andmetamyelocytes) > 1% indicates that a LEFT SHIFT is Present. Lymphocytes/100 WBC Auto (Bld) 30.8 % Normal 19-41 [facility] Work Phone: MCH Auto Entitic mass (RBC) 29.0 pg Normal 27.0-32.0 [facility] Work Phone: MCHC Auto mass conc (RBC) 32.9 {g/gl} Normal 32-36 [facility] Work Phone: MCV Auto Entitic volume (RBC) 88.2 fL Normal 81-99 [facility] Work Phone: Monocytes/100 WBC Auto (Bld) 11.7 % Abnormal 0-10 [facility] Work Phone: Neutrophils/100 WBC Auto (Bld) 54.8 % Normal 47-70 [facility] Work Phone: Platelet mean volume Auto Entitic volume (Bld) 11.1 fL Normal 6.2-12.0 [facility] Work Phone: Platelets Auto #/vol (Bld) 210 10*3/uL Normal 150-450 [facility] Work Phone: RBC Auto #/vol (Bld) 4.31 {M/mm3} Normal 4.2-5.4 Co mprehensive [facility] Work Phone: RDW SD 40.9 fL Normal 35.1-43.9 [facility] Work Phone: WBC Auto #/vol (Bld) 7.1 10*3/uL Normal 4.4-11.0 [facility] prehensive Internal Medicine Work Phone: CRPOrdered By: System Manage r on 09-04-2015 CRP mass conc 5.55 mg/L Abnormal 0.0-3.0 Comprehensi [facility] Medicine Work Phone: Comment on above: C-Reactive Protein ( CRP) provides useful information for thediagnosis, therapy and monitoring of inflammatory processesand associated diseases. For the evaluation of Relative Riskfor Cardiovascular Disease, a High Sensitivity CRP (HSCRP)should be ordered. 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 Hematocrit (Bld) [Volume fraction] 38.0 % Invalid Interpretation Code [facility] Work Phone: Platelets (Bld) [#/Vol] 210 10*3/uL Invalid Interpretation Code [facility] Work Phone: TSH Qn 6.56 m[IU]/L Invalid Interpretation Code [facility] Work Phone: WBC (Bld) [#/Vol] 7.1 10*3/uL Invalid Interpretation Code [facility] Work Phone: Erythrocyte Sed RateOrdered By: Compound Worker on 09-04-2015 SED RATE 17 mm/h Normal 0-30 [facility] Work Phone: IronOrdered By: System Manag er on 09-04-2015 Iron mass conc 79 ug/dL Normal 50-170 Comprehens [facility] Work Phone: Thyroid Stim Hormone (TSH)Or dered By: Compound Worker on 09-04-2015 Thyrotropin Qn 6.56 {uIU/mL} Abnormal 0.358-3.74 Compreh ensive [facility] Medicine Work Phone: Vitamin [id number] By: Suresh m [employer] Signal Operator on 09-04-2015 Cobalamin (Vitamin B12) mass conc 774 pg/mL Normal 211-911 [facility] Work Phone: Vitamin D,25 HydroxyOrdered By: Compound Worker on 09-04-2015 Vitamin D 25-OH 42.4 ng/mL Normal Comprehen sive Internal Medicine Work Phone: Comment on above: Vitamin D 25(OH) Sta tus Range Deficiency <20 ng/mL (50nmol/L) Insuffciency 20 - 30 ng/mL (50 - 75 nmol/L) Sufficiency 30 - 100 ng/mL (75 - 250 nmol/L) Toxicity >100 ng/mL (>250 nmol/L) Rapid Flu (78778 x 2)Ordered By: Violetta Virgen on 02-23-2015 FLUAV Ag IA Ql (Throat) Negative Normal [facility] Work Phone: FLUAV Ag IA Ql (Throat) Negative Normal [facility]; [facility] Work Phone: Rapid Strep Test, Office ([phone])Ordered By: Violetta Virgen on 02-23-2015 S. pyogenes Ag EIA Ql (Throat) Negative Normal [facility]; [facility] Work Phone: S. pyogenes Ag IA Ql (Unsp spec) Negative Normal [facility] Work Phone: CBC W/Diff, AutomatedOrdered By: Compound Worker on 01-13-2015 Absolute Lymph 2.31 {X10_3/ul} Normal 0.83-4.51 Compr ehensive [facility] Medicine Work Phone: Absolute Neut 5.4 {X10_3/uL} Normal 2.0-7.7 Compreh ensive [facility] Work Phone: Basophils/100 WBC Auto (Bld) 0.3 % Normal 0-1 [facility] Work Phone: Eosinophils/100 WBC Auto (Bld) 1.6 % Normal 0-5 [facility] Work Phone: Erythrocyte distribution width Auto Ratio (RBC) 13.1 % Normal 11.6-14.6 [facility] Work Phone: Hematocrit Auto Volume Fraction (Bld) 39.8 % Normal 37-47 [facility] Work Phone: Hemoglobin mass conc (Bld) 12.9 g/dL Normal 12.0-15.0 [facility] Work Phone: IM GRAN % 0.200 % Normal 0.0-0.9 [facility] Work Phone: Comment on above: IG% - Immature Granu locytes (promyelocytes, myelocytes andmetamyelocytes) > 1% indicates that a LEFT SHIFT is Present. Lymphocytes/100 WBC Auto (Bld) 26.6 % Normal 19-41 [facility] Work Phone: MCH Auto Entitic mass (RBC) 29.5 pg Normal 27.0-32.0 [facility] Work Phone: MCHC Auto mass conc (RBC) 32.4 {g/gl} Normal 32-36 [facility] Work Phone: MCV Auto Entitic volume (RBC) 91.1 fL Normal 81-99 [facility] Work Phone: Monocytes/100 WBC Auto (Bld) 9.4 % Normal 0-10 [facility] Work Phone: Neutrophils/100 WBC Auto (Bld) 61.9 % Normal 47-70 [facility] Medicine Work Phone: Platelet mean volume Auto Entitic volume (Bld) 11.2 fL Normal 6.2-12.0 [facility] Work Phone: Platelets Auto #/vol (Bld) 246 10*3/uL Normal 150-450 [facility] Work Phone: RBC Auto #/vol (Bld) 4.37 {M/mm3} Normal 4.2-5.4 [facility] Work Phone: RDW SD 43.5 fL Normal 35.1-43.9 [facility] Work Phone: WBC Auto #/vol (Bld) 8.7 10*3/uL Normal 4.4-11.0 [facility] Work Phone: CK-MB Quantitative and Index Ordered By: Compound Worker on 01-13-2015 CKRI 0.8 % Normal 0.0-1.4 [facility] Work Phone: Comment on above: RELATIVE INDEX >1.5% IS PRESUMPTIVELY POSITIVE CPK TOTAL 73 U/L Normal 26-192 [facility] Work Phone: CPKMB 0.6 ng/mL Normal 0.0-5.0 [facility] Internal Medicine Work Phone: Comment on above: CK-MB and RI Interpr etation MB Relative Index Non-AMI 5 5 > 4 IronOrdered By: System Manag er on 01-13-2015 Iron mass conc 53 ug/dL Normal 50-170 Comprehens [facility] Work Phone: Thyroid Stim Hormone (TSH)Or dered By: Compound Worker on 01-13-2015 Thyrotropin Qn 10.90 {uIU/mL} Abnormal 0.358-3.74 [facility] Work Phone: Troponin-IOrdered By: Compound Worker on 01-13-2015 Troponin I.cardiac mass conc ng/mL Normal [facility] Work Phone: Comment on above: TROPONIN-I EXPECTED VALUES <0.05 NEGATIVE 0.06 - 0.59 AT RISK OF ME > OR = 0.60 SUGGEST ME Vitamin D,25 HydroxyOrdered By: Compound Worker on 01-13-2015 Vitamin D 25-OH 24.7 ng/mL Normal Comprehen [facility] Internal Medicine Work Phone: Comment on above: Vitamin D 25(OH) Sta tus Range Deficiency <20 ng/mL (50nmol/L) Insuffciency 20 - 30 ng/mL (50 - 75 nmol/L) Sufficiency 30 - 100 ng/mL (75 - 250 nmol/L) Toxicity >100 ng/mL (>250 nmol/L) CBC, EmployeeOrdered By: Sys tem Railroad Signal Operator on 11-12-2014 Absolute Lymph 2.11 {X10_3/ul} Normal 0.83-4.51 [facility] Work Phone: Absolute Neut 5.6 {X10_3/uL} Normal 2.0-7.7 Compre[facility] Work Phone: Basophils/100 WBC Auto (Bld) 0.3 % Normal 0-1 [facility] Work Phone: Eosinophils/100 WBC Auto (Bld) 0.6 % Normal 0-5 [facility] Work Phone: Erythrocyte distribution width Auto Ratio (RBC) 13.2 % Normal 11.6-14.6 [facility] Work Phone: Hematocrit Auto Volume Fraction (Bld) 40.9 % Normal 37-47 [facility] Work Phone: Hemoglobin mass conc (Bld) 13.1 g/dL Normal 12.0-15.0 [facility] Work Phone: Lymphocytes/100 WBC Auto (Bld) 24.6 % Normal 19-41 [facility] Work Phone: MCH Auto Entitic mass (RBC) 28.7 pg Normal 27.0-32.0 [facility] Work Phone: MCHC Auto mass conc (RBC) 32.0 {g/gl} Normal 32-36 [facility] Work Phone: MCV Auto Entitic volume (RBC) 89.7 fL Normal 81-99 [facility] Work Phone: Monocytes/100 WBC Auto (Bld) 8.7 % Normal 0-10 [facility] Internal Medicine Work Phone: Neutrophils/100 WBC Auto (Bld) 65.3 % Normal 47-70 [facility] Work Phone: Platelet mean volume Auto Entitic volume (Bld) 11.0 fL Normal 6.2-12.0 [facility] Work Phone: Platelets Auto #/vol (Bld) 279 10*3/uL Normal 150-450 [facility] Internal Medicine Work Phone: RBC Auto #/vol (Bld) 4.56 {M/mm3} Normal 4.2-5.4 Co mprehensive [facility] Work Phone: RDW SD 42.8 fL Normal 35.1-43.9 [facility] Work Phone: WBC Auto #/vol (Bld) 8.6 10*3/uL Normal 4.4-11.0 [facility] prehensive Internal Medicine Work Phone: Employee ProfileOrdered By: Compound Worker on 11-12-2014 A/G 1.2 {RATIO} Normal 0.9-2.4 [facility] Work Phone: Albumin [Mass/Vol] 4.1 g/dL Normal 3.4-5.0 [facility] Work Phone: ALP enzyme act/vol 104 U/L Normal 50-136 Compre hensive Internal Medicine Work Phone: AST [Catalytic activity/Vol] 15 U/L Normal 15-37 [facility] Work Phone: BUN/CRE 25.6 {RATIO} Abnormal 10-20 Comprehensiv e Internal Medicine Work Phone: Calcium mass conc 8.9 mg/dL Normal 8.5-10.1 Compreh ensive Internal Medicine Work Phone: Chloride molar conc 100 mmol/L Normal 98-107 Compr ehensive Internal Medicine Work Phone: Cholesterol in HDL [Mass/Vol] 72 mg/dL Normal [facility] Work Phone: Comment on above: Reference Range [...] Work Phone: Triglyceride [Mass/Vol] 58 mg/dL Normal [facility] Work Phone: Comment on above: [...] in LDL [Mass/Vol] 140 mg/dL High 0-130 [facility] Work Phone: Lipoprotein.pre-beta [Mass/Vol] 12 mg/dL Invalid Interpretation Code 5-40 [facility] Work Phone: Lab Report: Liver Profileon 11-12-2014 ALP (Bld) [Catalytic activity/Vol] 104 U/L Invalid Interpretation Code 50-136 [facility] Work Phone: Globulin (S) [Mass/Vol] 3.5 g/dL Invalid Interpretation Code 2.3-3.5 [facility] Work Phone: Lipid ProfileOrdered By: Sys tem Railroad Signal Operator on 11-12-2014 Cholesterol [Mass/Vol] 224 mg/dL Abnormal [facility] Work Phone: Comment on above: <200 mg/dL Desirable 200-240 mg/dL Borderline >240 mg/dL High Risk Cholesterol in LDL mass conc 140 mg/dL Abnormal 0-130 [facility] Work Phone: Cholesterol in VLDL mass conc 12 mg/dL Normal 5-40 [facility] Work Phone: Liver ProfileOrdered By: Sys tem Railroad Signal Operator on 11-12-2014 ALT [Catalytic activity/Vol] 22 U/L Normal 12-78 [facility] Work Phone: Bilirubin [Mass/Vol] 0.40 mg/dL Normal 0.20-1.[address] [facility] Work Phone: Bilirubin.direct [Mass/Vol] 0.12 mg/dL Normal 0.00-0.30 [facility] Work Phone: Globulin Calculated mass conc (S) 3.5 g/dL Normal 2.3-3.5 [facility] Work Phone: Protein [Mass/Vol] 7.6 g/dL Normal 6.4-8.2 [facility] Work Phone: Urinalysis, EmployeeOrdered By: Compound Worker on 11-12-2014 CLARITY Sl. Cloudy Normal [facility] Work Phone: COLOR Yellow Normal [facility] Work Phone: GLUCOSE, UR Normal Normal [facility] Work Phone: LEUK ESTERASE Negative Normal Comprehensi Internal Medicine Work Phone: pH UR 6.0 1 Normal 5.0 - 8.0 [facility] Internal Medicine Work Phone: SP.GR. DIPSTX 1.020 1 Normal 1.002-1.03 0 [facility] Internal Medicine Work Phone: Office Visiton 11-05-2014 cardiac risk group B Invalid Interpretation Code [facility] Work Phone: General cardiovascular disease 10Y risk [#] [place]ost[place] 11 % Invalid Interpretation Code [facility] Work Phone: Tobacco use status [facility] Never smoker Invalid Interpretation Code [facility] Work Phone: Basic Metabolic Profile (BMP )Ordered By: Compound Worker on 10-18-2014 Basic metabolic 2000 panel 27.0 [...] above: Please note revised CREATININE reference range deyilrovy41/22/2015. Basic metabolic 2000 panel 9.3 mg/dL Normal 8.5-10.1 [facility] Work Phone: Basic metabolic 2000 panel 53.93 ml/min Normal [facility] Work Phone: Basic metabolic 2000 panel 137 mmol/L Normal 136-145 [facility] Work Phone: Thyroid Stim Hormone (TSH)Or dered By: Compound Worker on 10-18-2014 Thyrotropin Qn 7.67 {uIU/mL} Abnormal 0.358-3.74 Compreh ensive [facility] Work Phone: LIONEL CULTURE-OTHER ([id number])Ord ered By: Compound Worker on 10-14-2014 Bacteria identified Respiratory culture Nom (Unsp spec) Final report Abnormal [facility] Work Phone: Comment on above: PATIENT NOT FASTINGP ERFORMED BY: LabCoSaint [facility] HospitalPnixfa8[address] [facility] [id number] Information: SRC:THRT [id number] Bacteria identified Respiratory culture Nom (Unsp spec) [...] (CLSI 2010) PATIENT NOT FASTINGP ERFORMED BY: PEGGY [facility] Nynlts9840 [facility] AngelLifecare Hospitals [facility] [place] [id number] Information: SRC:MONTY [id number] Rapid Strep Test, Office ([phone])Ordered By: Violetta Virgen on 10-14-2014 S. pyogenes Ag EIA Ql (Throat) Negative Normal [facility]; [facility] Work Phone: S. pyogenes Ag IA Ql (Unsp spec) Negative Normal [facility] Work Phone: CBC With Differential/Platel etOrdered By: Compound Worker on 08-19-2014 Basophils Auto #/vol (Bld) 0.0 [...] Phone: Comp. Metabolic Panel (14)Or dered By: Compound Worker on 08-19-2014 Albumin mass conc 4.6 g/dL Normal 3.6-4.8 Compreh ensive [facility] Work Phone: Albumin/Globulin mass ratio 2.0 {ratio} Normal 1.1-2.5 [facility] Work Phone: ALP enzyme act/vol 110 [iU]/L Normal 39-117 Compre [facility] Internal Medicine Work Phone: ALT enzyme act/vol 15 [iU]/L Normal 0-32 Compre [facility] Internal Medicine Work Phone: AST enzyme act/vol 11 [iU]/L Normal 0-40 Compre [facility] Internal Medicine Work Phone: Bilirubin mass conc 0.3 mg/dL Normal 0.0-1.2 Compr [facility] Internal Medicine Work Phone: Calcium mass conc 9.8 mg/dL Normal 8.7-10.3 Compreh ensive [facility] Medicine Work Phone: Chloride molar conc 96 mmol/L Abnormal 97-108 Compr [facility] Internal Medicine Work Phone: CO2 molar conc 22 mmol/L Normal 18-29 Comprehens [facility] Work Phone: Creatinine mass conc 0.90 mg/dL Normal 0.57-1.00 [facility] Work Phone: GFR/1.73 sq M [...] molar conc 4.6 mmol/L Normal 3.5-5.2 [facility] Work Phone: Protein mass conc 6.9 g/dL Normal 6.0-8.5 Compreh ensive [facility] Work Phone: Sodium molar conc 136 mmol/L Normal 134-144 Compreh ensive [facility] Work Phone: Urea nitrogen mass conc 22 mg/dL Normal 8-27 [facility] Work Phone: Urea nitrogen/Creatinine mass ratio 24 mg/mg Normal 11-26 [facility] Work Phone: EBV Acute Infection Antibodi esOrdered By: Compound Worker on 08-19-2014 EBV capsid IgG IA Qn [...] Work Phone: Comment on above: EBV Interpretation Nena morse . Interpretation EBV-IgM EA(D)-IgG VCA-IgG EBNA-IgG . EBV Seronegative - - - - Early Phase + - - - Acute Primary + +or- + - Infection Convalescence/Past - +or- + + Infection Reactivated +or- + + + Infection + Antibody Present - Antibody Absent Rapid Strep Test, Office ([phone])Ordered By: Radha Dumont on 08-19-2014 S. pyogenes Ag EIA Ql (Throat) Negative Normal [facility]; [facility] Work Phone: S. pyogenes Ag IA Ql (Unsp spec) Negative Normal [facility] Work Phone: Upper Respiratory CultureOrd ered By: Compound Worker on 08-19-2014 Bacteria identified Respiratory culture Nom [...] Entitic mass (RBC) 30.4 pg Normal 27.0-32.0 [facility] Work Phone: MCHC Auto mass conc (RBC) 34.4 {g/gl} Normal 32-36 [facility] Work Phone: MCV Auto Entitic volume (RBC) 88.3 fL Normal 81-99 [facility] Work Phone: Platelet mean volume Auto Entitic volume (Bld) 10.5 fL Normal 6.2-12.0 [facility] Work Phone: Platelets Auto #/vol (Bld) 271 10*3/uL Normal 150-450 [facility] Work Phone: RBC Auto #/vol (Bld) 4.28 {M/mm3} Normal 4.2-5.4 Co [facility] Work Phone: WBC Auto #/vol (Bld) 10.1 10*3/uL Normal 4.4-11.0 Co mprensive Internal Medicine Work Phone: CBCEM 42.2 fL [...] Medicine Work Phone: 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 CO2 (BldV) [Partial pressure] 28.0 mmol/L Invalid Interpretation Code [facility] Work Phone: MCH (RBC) [Entitic mass] 30.4 pg Invalid Interpretation Code [facility] Work Phone: MCV (RBC) [Entitic vol] 88.3 fL Invalid Interpretation Code [facility] Work Phone: RBC (Bld) [#/Vol] 4.28 10*6/uL Invalid Interpretation Code [facility] Work Phone: Urea nitrogen/Creatinine [Mass ratio] 25.5 mg/mg Invalid Interpretation Code [facility] Work Phone: EMPOrdered By: System [...] Phone: Chloride [Moles/Vol] 102 mmol/L Normal 98-[address] [facility] Work Phone: Cholesterol in [...] molar conc 28.0 mmol/L Normal 21.0-32.[address] [facility] Work Phone: Creatinine [Mass/Vol] 1.1 [...] Medicine Work Phone: Blood Glucose , Office ([phone])Ordered By: RACHEL Bartlett on 08-26-2013 Glucose Glucometer molar conc (BldC) 126 1 Normal [facility] Work Phone: CALCIFIDIOL ([phone]) VIT D 25 Ordered By: Compound Worker on 08-26-2013 25-Hydroxyvitamin D2+25-Hydroxyvitamin D3 mass conc 16.3 ng/mL Abnormal 30.0-100.0 [facility] Work Phone: Comment on above: Vitamin D deficiency has been defined by the [place] ofMedicine and an Endocrine Society practice guideline as alevel of serum 25-OH vitamin D less than 20 ng/mL (1,2).The Endocrine Society went on to further define vitamin Dinsufficiency as a level between 21 and 29 ng/mL (2).1. IOM ([place] of Medicine). 2010. Dietary reference intakes for calcium and D. [place]: The National Academies Press.2. Jonna MF, Yomi NC, Dionte DUNHAM, et al. Evaluation, treatment, and prevention of vitamin D deficiency: an Endocrine Society clinical practice guideline. JCEM. 2010; 96(7):1911-30. PATIENT WAS FASTINGP ERFORMED BY: [facility] Kzxgrp2012 [facility] [id number] HgA1C , Office ([id number])Ordere d By: Isis Phoenix on 08-26-2013 Hemoglobin A1c/Hemoglobin.total mass fraction (Bld) 5.5 % Normal 4.6 - 7.1 Comprehensiv e [facility] Work Phone: LIPID PANEL ([id number])Ordered B y: Compound Worker on 08-26-2013 Cholesterol in HDL mass conc 72 mg/dL Normal [facility] Work Phone: Comment on above: According to ATP-III Guidelines, HDL-C >59 mg/dL is considered anegative risk factor for CHD. PATIENT WAS FASTINGP ERFORMED BY: PEGGY Alonfrank Zmklub49[address] [facility] [id number] Cholesterol in LDL mass conc 174 mg/dL Abnormal 0-99 [facility] Work Phone: Comment on above: PATIENT WAS FASTINGP ERFORMED BY: PEGGY RadhikaBladimir LuisBatsby[address] [facility] [id number] Cholesterol in LDL/Cholesterol in HDL mass ratio 2.4 {ratio_units} Normal 0.0-3.2 [facility] Work Phone: Comment on above: PATIENT WAS FASTINGP ERFORMED BY: PEGGY RadhikaBladimir LuisFxzrdc0[address] [facility] [id number] Cholesterol in VLDL mass conc 23 mg/dL Normal 5-40 [facility] Work Phone: Comment on above: PATIENT WAS FASTINGP ERFORMED BY: PEGGY Luislin[address] [facility] [id number] Cholesterol mass conc 269 mg/dL Abnormal 100-199 [facility] Work Phone: Comment on above: PATIENT WAS FASTINGP ERFORMED BY: PEGGY RadhikaBladimir Fgwjgj4[address] [facility] [id number] Triglyceride mass conc 114 mg/dL Normal 0-149 [facility] Work Phone: Comment on above: PATIENT WAS FASTINGP ERFORMED BY: PEGGY Luislin[address] [facility] [id number] METABOLIC PANEL, COMPREHENSI VE ([id number])Ordered By: Compound Worker on 08-26-2013 Albumin mass conc 4.5 g/dL Normal 3.6-4.8 Compreh ensive Internal Medicine Work Phone: Comment on above: PATIENT WAS FASTINGP ERFORMED BY: PEGGY RadhikaBladimir LuisIongfg27[address] [facility] [id number] Information: [id number] Albumin/Globulin mass ratio 2.0 {ratio} Normal 1.1-2.5 [facility] Work Phone: Comment on above: PATIENT WAS FASTINGP ERFORMED BY: PEGGY [facility] Mszbwd0188 [facility] [id number] Information: [id number] ALP [Catalytic activity/Vol] 107 U/L Normal 39-117 [facility] Internal [facility]; [facility] Medicine Work Phone: ALP enzyme act/vol 107 [iU]/L Normal 39-[address] [facility] Internal Medicine Work Phone: Comment on above: PATIENT WAS FASTINGP ERFORMED BY: PEGGY LabCoSaint James HospitalPuyzkr0030 [facility] [id number] Information: [id number] ALT [Catalytic activity/Vol] 36 U/L Abnormal 0-32 [facility]; [facility] Internal Medicine Work Phone: ALT enzyme act/vol 36 [iU]/L Abnormal 0-[address] [facility] Internal Medicine Work Phone: Comment on above: PATIENT WAS FASTINGP ERFORMED BY: PEGGY LabCoSaint James HospitalFjqopp6795 [facility] [id number] Information: [id number] AST [Catalytic activity/Vol] 38 U/L Normal 0-40 [facility]; [facility] Medicine Work Phone: AST enzyme act/vol 38 [iU]/L Normal 0-[address] [facility] Internal Medicine Work Phone: Comment on above: PATIENT WAS FASTINGP ERFORMED BY: LabCoSaint James HospitalCglfcz8448 [facility] [id number] Information: [id number] Bilirubin mass conc 0.3 mg/dL Normal 0.0-1.2 Compr [facility] Internal Medicine Work Phone: Comment on above: PATIENT WAS FASTINGP ERFORMED BY: [facility] Iyueaj09[address] [facility] [id number] Information: [id number] Calcium mass conc 10.2 mg/dL Normal 8.6-10.2 Compreh ensive [facility] Medicine Work Phone: Comment on above: PATIENT WAS FASTINGP ERFORMED BY: PEGGY [facility] Lfqkcm7633 Spencer RoadLifecare Hospitals [facility] [place] [id number] Information: [id number] Chloride molar conc 99 mmol/L Normal 97-108 Compr ehensive Internal Medicine Work Phone: Comment on above: PATIENT WAS FASTINGP ERFORMED BY: CB [facility] Gnuaxq5972 [facility] [id number] Information: [id number] CO2 molar conc 24 mmol/L Normal 18-29 Comprehens [facility] Work Phone: Comment on above: PATIENT WAS FASTINGP ERFORMED BY: CB [facility] Bfaewr7565 [facility] [id number] Information: [id number] Creatinine mass conc 0.96 mg/dL Normal 0.57-1.00 Comp rehensive Internal Medicine Work Phone: Comment on above: PATIENT WAS FASTINGP ERFORMED BY: PEGGY [facility] Jbwffo34[address] [facility] [id number] Information: [id number] GFR/1.73 sq M predicted among blacks CKD-EPI vol rate/area (S/P/Bld) 73 mL/min/1.73 Normal [facility] Work Phone: Comment on above: PATIENT WAS FASTINGP ERFORMED BY: CB [facility] Zpqucf4[address] [facility] [id number] Information: [id number] GFR/1.73 sq M predicted among non-blacks CKD-EPI vol rate/area (S/P/Bld) 63 mL/min/1.73 Normal Comprehensiv e Internal Medicine Work Phone: Comment on above: PATIENT WAS FASTINGP ERFORMED BY: CB [facility] Nzdkiy8880 [facility] [place] [id number] Information: [id number] Globulin Calculated mass conc (S) 2.2 g/dL Normal 1.5-4.5 [facility] Work Phone: Globulin mass conc (S) 2.2 g/dL Normal 1.5-4.5 [facility] Work Phone: Comment on above: PATIENT WAS FASTINGP ERFORMED BY: [facility] Kxqwel5776 [facility] [id number] Information: [id number] Glucose mass conc 95 mg/dL Normal 65-99 Compreh ensive Internal Medicine Work Phone: Comment on above: PATIENT WAS FASTINGP ERFORMED BY: LabHenry [facility] [facility] [id number] Information: [id number] Potassium molar conc 5.2 mmol/L Normal 3.5-5.2 Comp [facility] Work Phone: Comment on above: PATIENT WAS FASTINGP ERFORMED BY: LabDavid Ville [id number] [facility] [id number] Information: [id number] Protein mass conc 6.7 g/dL Normal 6.0-8.5 Compreh ensive Internal Medicine Work Phone: Comment on above: PATIENT WAS FASTINGP ERFORMED BY: [facility] Vscbeg0150 [facility] [id number] Information: [id number] Sodium molar conc 138 mmol/L Normal 134-144 Compreh ensive Internal Medicine Work Phone: Comment on above: PATIENT WAS FASTINGP ERFORMED BY: [facility] Hmfvez7337 [facility] [id number] Information: [id number] Urea nitrogen mass conc 15 mg/dL Normal 8-27 [facility] Work Phone: Comment on above: PATIENT WAS FASTINGP ERFORMED BY: [facility] Fbqvtq25[address] [facility] [id number] Information: [id number] Urea nitrogen/Creatinine mass ratio 16 mg/mg Normal 11-26 [facility] Work Phone: Comment on above: PATIENT WAS FASTINGP ERFORMED BY: [facility] Woenlt3464 [facility] [id number] Information: [id number] TSH ([id number])Ordered By: Suresh Cr on 08-26-2013 Thyrotropin Qn 16.410 {uIU/mL} Abnormal 0.450-4.50 0 [facility] Work Phone: Comment on above: PATIENT WAS FASTINGP ERFORMED BY: [facility] Owtjcs78[address] [facility] [id number] Urinalysis, Office ([id number])Or dered By: Isis Phoenix on 08-26-2013 Bilirubin [...] Tobacco smoking status Never Invalid Interpretation Code [facility] Work Phone: CBCDOrdered By: System [...] Entitic volume (Bld) 9.3 fL Normal 6.2-12.0 [facility] Work Phone: Platelets Auto #/vol (Bld) 209 10*3/uL Normal 150-450 [facility] Work Phone: RBC Auto #/vol (Bld) 3.78 {M/mm3} Abnormal 4.2-5.4 Co mprehensive [facility] Work Phone: WBC Auto #/vol (Bld) 6.0 10*3/uL Normal 4.4-11.0 Com prehensive Internal Medicine Work Phone: CBCD 0.200 % Normal 0.0-0.9 [facility] Work Phone: Comment on [...] Work Phone: CBCD 50.5 % Normal 47-70 [facility] Work Phone: CBCD 3.0 {X10_3/uL} Normal 2.0-7.7 Comprehens [facility] Work Phone: CBCD 47.7 fL Abnormal 35.1-43.9 [facility] Work Phone: Lab Report: CBCDon 4 Absolute Neutrophil count 3.0 X10 3/UL Normal 2.0-7.7 [facility] Work Phone: Basophils/100 WBC (Bld) 0.3 % Normal 0-1 [facility] Work Phone: Eosinophils/100 WBC (Bld) 5.9 % High 0-5 [facility] Work Phone: Erythrocyte distribution width (RBC) [Ratio] 0.54717 % Normal 0.0-0.9 [facility] Work Phone: Lymphocytes/100 WBC (Bld) 28.7 % Normal 19-41 [facility] Work Phone: mean corpuscular hemoglobin concentration, RBC 34.1 G/GL Normal 32-36 [facility] Work Phone: Monocytes/100 WBC (Bld) 14.4 % High 0-10 [facility] Work Phone: Neutrophils/100 WBC (Bld) 50.5 % Normal 47-70 [facility] Work Phone: Platelet mean volume (Bld) [Entitic vol] 9.3 fL Normal 6.2-12.0 [facility] Work Phone: Lab Report: [...] Auto #/vol (Bld) 8.0 10*3/uL Normal 4.4-11.0 [facility] prehensive Internal Medicine Work Phone: CBCD 40.2 fL Normal 35.1-43.9 [facility] Work Phone: CBCD 56.4 % Normal 47-70 [facility] Work Phone: CBCD 10.2 % Abnormal 0-10 [facility] Work Phone: CBCD 32.9 % Normal 19-41 [facility] Work Phone: CBCD 0.1 % Normal 0-1 [facility] Work Phone: CBCD 0.300 % Normal 0.0-0.9 [facility] Work Phone: Comment on above: IG% - Immature Granu locytes (promyelocytes, myelocytes andmetamyelocytes) > 1% indicates that a LEFT SHIFT is Present. CBCD 4.5 {X10_3/uL} Normal 2.0-7.7 Comprehens [facility] Work Phone: CMPOrdered By: System Manage r on 03-12-2013 Albumin mass conc 4.2 g/dL Normal 3.4-5.0 Compreh ensive Internal Medicine Work Phone: Albumin/Globulin mass ratio 1.3 {RATIO} Normal 0.9-2.4 [facility] Work Phone: ALP enzyme act/vol 91 U/L Normal 50-136 Compre [facility] Internal Medicine Work Phone: ALT enzyme act/vol 21 U/L Normal 12-78 [facility] Internal Medicine Work Phone: AST enzyme act/vol 12 U/L Abnormal 15-37 Compre [facility] Internal Medicine Work Phone: Bilirubin mass conc 0.30 mg/dL Normal 0.00-1.00 Compr ensive Internal Medicine Work Phone: Calcium mass conc 9.6 mg/dL Normal 8.5-10.1 [facility] Work Phone: Chloride molar conc 102 mmol/L Normal 98-107 Compr [facility] Internal Medicine Work Phone: CO2 molar conc 29.0 mmol/L Normal 21.0-32.[address] [facility] Work Phone: Creatinine mass conc 0.9 mg/dL Normal 0.6-1.0 [facility] Internal Medicine Work Phone: GFR/1.73 sq M predicted among non-blacks MDRD vol rate/area (S/P/Bld) 67 mL/min/{1.73_m2} Normal Comprehe ive Internal Medicine Work Phone: Globulin Calculated mass conc (S) 3.3 g/dL Normal 2.7-4.2 [facility] Internal Medicine Work Phone: Glucose mass conc 97 mg/dL Normal 70-110 [facility] Work Phone: Potassium molar conc 5.0 mmol/L Normal 3.5-5.1 [facility] Work Phone: Protein mass conc 7.5 g/dL Normal 6.4-8.2 Compreh ensive Internal Medicine Work Phone: Sodium molar conc 136 mmol/L Normal 136-145 [facility] Work Phone: Urea nitrogen mass [...] ensive Internal Medicine Work Phone: UAOrdered By: Compound Worker on 03-12-2013 UA Negative Normal [facility] [...] Rhythm WITHIN NORMAL LIMITS Invalid Interpretation Code [facility] Work Phone: Heart rate 65 /min Invalid Interpretation Code [facility] Work Phone: P wave axis, electrocardiogram 35 deg Invalid Interpretation Code [facility] Work Phone: [place] interval, electrocardiogram 158 ms Invalid Interpretation Code [facility] Work Phone: QRS axis, electrocardiogram 26 deg Invalid Interpretation Code [facility] Work Phone: QRS duration, electrocardiogram 80 ms Invalid Interpretation Code [facility] Work Phone: QT interval, electrocardiogram new path ms Invalid Interpretation Code [facility] Work Phone: QT interval/QT interval (corrected for heart rate), electrocardiogram 416 ms Invalid Interpretation Code [facility] Work Phone: T wave axis, electrocardiogram 36 deg Invalid Interpretation Code [facility] Work Phone: Lab Report: LYMEWBon 013 Borellia Burgdorferi, IgM, QL, western blot Negative Normal . [facility] Work Phone: Lab Report: CRPon 01-02-2013 CRP [Mass/Vol] 4.20 mg/L High 0.0-3.0 [facility] Work Phone: MISCOrdered By: System Manag er on 09-22-2012 [facility] [place] Normal [facility] Work Phone: Comment on above: Giardia/Cryptosporid ium EIAGiardia lamblia Ag, EIA NegativeCryptosporidium EIA Negative __TESTING PERFORMED AT [facility]. ORIGINAL REPORT ONFILE IN LAB CONTAINS ADDITIONAL [...] Crytosporidium parvum,Cyclospora, or Microsporidia. [facility] ORIGINAL REPORT ONFILE IN LAB CONTAINS ADDITIONAL TEST SITE INFORMATION. OVA/ PARASITES EXAM NO OVA, CYSTS, OR PARASITES FOUND. WBCSTOrdered By: Cammie jeffries on 09-22-2012 WBC Auto #/vol (Bld) See Note Abnormal Comp rehensive Internal Medicine Work Phone: Comment on above: FECAL WBC LACTOFERRI N Positive: Fecal WBC Lactoferrin present CDIFOrdered By: Cammie Huerta er on 05-31-2012 CDIF See Note Normal [...] cases. C. DIFF ANTIGENS POSITIVE KOrdered By: Compound Worker on 05-19-2012 Potassium molar conc 5.0 mmol/L Normal 3.5-5.1 Comp rehensive Internal Medicine Work Phone: KOrdered By: Compound Worker on 05-18-2012 Potassium molar conc 5.8 mmol/L Abnormal 3.5-5.1 Comp rehensive Internal Medicine Work Phone: Comment on above: RESULTS CALLED TO HECTOR BELTRAN RN 05/18/12 1348 LAYO STATONREPORT READ BACK BY TIEN. CUSTOrdered By: System Manag er on 05-11-2012 CUST See Note Normal [facility] Work Phone: Comment on above: SHIGA TOXIN 1 AND SH IGA TOXIN 2 NOT DETECTED OCCULT BLOOD POSITIV E RESULTS CALLED TO Nena JULES 05/11/12 1429 SHANON TATE.REPORT READ BACK BY CLAUDIA . A positive [...] Fecal WBC Lactoferrin present HgA1C , Office ([id number])Ordere d By: Isis Phoenix on 11-01-2011 Hemoglobin A1c/Hemoglobin.total mass fraction (Bld) 5.8 % Normal 4.6 - 7.1 Comprehensiv e Internal Medicine Work Phone: CALCIFEDIOL ([id number])Ordered B y: Compound Worker on 10-04-2011 25-Hydroxyvitamin D2+25-Hydroxyvitamin D3 mass conc 22.8 ng/mL Abnormal 30.0-100.0 [facility] Work Phone: Comment on above: Vitamin D deficiency has been defined by the [place] ofMedicine and an Endocrine Society practice guideline as alevel of serum 25-OH vitamin D less than 20 ng/mL (1,2).The Endocrine Society went on to further define vitamin Dinsufficiency as a level between 21 and 29 ng/mL (2).1. IOM ([place] of Medicine). 2010. Dietary reference intakes for calcium and D. [place]: The National Academies Press.2. Jonna MF, Yomi NC, Dionte DUNHAM, et al. Evaluation, treatment, and prevention of vitamin D deficiency: an Endocrine Society clinical practice guideline. JCEM. 2010; 96(7):1911-30. PATIENT NOT FASTINGP ERFORMED BY: [employer] Bydbwb[address] [facility] [id number] Information: [id number] KOrdered By: Compound Worker on 07-15-2011 Potassium molar conc 5.1 mmol/L Normal 3.5-5.1 Comp rehensive Internal Medicine Work Phone: CBC WITH MANUAL DIFF ([id number]) Ordered By: Compound Worker on 07-14-2011 Basophils #/vol (Bld) 0.0 {x10E3/uL} Normal 0.0-0.2 [facility] Work Phone: Comment on above: PATIENT WAS FASTINGP ERFORMED BY: [employer] [facility] [id number] Information: [id number] Basophils (Bld) [#/Vol] 0.0 10*3/uL Normal 0.0-0.2 [facility]; [facility] Work Phone: Basophils Auto #/vol (Bld) 0.0 {x10E3/uL} Normal 0.0-0.2 [facility] Work Phone: Basophils/100 WBC (Bld) 0 % Normal 0-3 [facility] Work Phone: Comment on above: PATIENT WAS FASTINGP ERFORMED BY: [employer] Gxunoy[address] [facility] [id number] Information: [id number] Basophils/100 WBC Auto (Bld) 0 % Normal 0-3 [facility] Work Phone: Eosinophils #/vol (Bld) 0.0 {x10E3/uL} Normal 0.0-0.4 [facility] Work Phone: Comment on above: PATIENT WAS FASTINGP ERFORMED BY: PEGGY [facility] [facility] [id number] Information: [id number] Eosinophils (Bld) [#/Vol] 0.0 10*3/uL Normal 0.0-0.4 [facility]; [facility] Work Phone: Eosinophils Auto #/vol (Bld) 0.0 {x10E3/uL} Normal 0.0-0.4 [facility] Work Phone: Eosinophils/100 WBC (Bld) 0 % Normal 0-7 [facility] Work Phone: Comment on above: PATIENT WAS FASTINGP ERFORMED BY: PEGGY [facility] Gnqovy[address] [facility] [id number] Information: [id number] Eosinophils/100 WBC Auto (Bld) 0 % Normal 0-7 [facility] Work Phone: Erythrocyte distribution width Auto Ratio (RBC) 13.6 % Normal 11.7-15.0 [facility] Work Phone: Erythrocyte distribution width Ratio (RBC) 13.6 % Normal 11.7-15.0 [facility] Work Phone: Comment on above: PATIENT WAS FASTINGP ERFORMED BY: PEGGY [facility] Xurzuq[address] [facility] [id number] Information: [id number] Hematocrit Auto Volume Fraction (Bld) 36.3 % Normal 34.0-44.0 [facility] Work Phone: Hematocrit Volume Fraction (Bld) 36.3 % Normal 34.0-44.0 [facility] Work Phone: Comment on above: PATIENT WAS FASTINGP ERFORMED BY: PEGGY [place] [id number] [facility] [id number] Information: [id number] Hemoglobin mass conc (Bld) 11.9 g/dL Normal 11.5-15.0 [facility] Work Phone: Comment on above: PATIENT WAS FASTINGP ERFORMED BY: [facility] [facility] [id number] Information: [id number] Immature granulocytes #/vol (Bld) 0.0 {x10E3/uL} Normal 0.0-0.1 [facility] Work Phone: Comment on above: PATIENT WAS FASTINGP ERFORMED BY: [place] [id number] [facility] [id number] Information: [id number] Immature granulocytes (Bld) [#/Vol] 0.0 10*3/uL Normal 0.0-0.1 [facility]; [facility] Work Phone: Immature granulocytes/100 WBC (Bld) 0 % Normal 0-2 [facility] Work Phone: Comment on above: PATIENT WAS FASTINGP ERFORMED BY: [address] [id number] Information: [id number] Lymphocytes #/vol (Bld) 1.7 {x10E3/uL} Normal 0.7-4.5 [facility] Work Phone: Comment on above: PATIENT WAS FASTINGP ERFORMED BY: [place] [id number] [facility] [id number] Information: [id number] Lymphocytes (Bld) [#/Vol] 1.7 10*3/uL Normal 0.7-4.5 [facility]; [facility] Work Phone: Lymphocytes Auto #/vol (Bld) 1.7 {x10E3/uL} Normal 0.7-4.5 [facility] Work Phone: Lymphocytes/100 WBC (Bld) 34 % Normal 14-46 [facility] Work Phone: Comment on above: PATIENT WAS FASTINGP ERFORMED BY: [place] [id number] [facility] [id number] Information: [id number] Lymphocytes/100 WBC Auto (Bld) 34 % Normal 14-46 [facility] Work Phone: MCH Auto Entitic mass (RBC) 29.0 pg Normal 27.0-34.0 [facility] Work Phone: MCH Entitic mass (RBC) 29.0 pg Normal 27.0-34.0 [facility] Internal Medicine Work Phone: Comment on above: PATIENT WAS FASTINGP ERFORMED BY: PEGGY [employer]adimir Nielsen[address] [facility] [id number] Information: [id number] MCHC Auto mass conc (RBC) 32.8 g/dL Normal 32.0-36.0 [facility] Work Phone: MCHC mass conc (RBC) 32.8 g/dL Normal 32.0-36.0 [facility] Internal Medicine Work Phone: Comment on above: PATIENT WAS FASTINGP ERFORMED BY: PEGGY Nielsen[address] [facility] [id number] Information: [id number] MCV Auto Entitic volume (RBC) 89 fL Normal 80-98 [facility] Work Phone: MCV Entitic volume (RBC) 89 fL Normal 80-98 [facility] Internal Medicine Work Phone: Comment on above: PATIENT WAS FASTINGP ERFORMED BY: PEGGY [employer]imir Zfxzhy[address] [facility] [id number] Information: [id number] Monocytes #/vol (Bld) 0.5 {x10E3/uL} Normal 0.1-1.0 [facility] Internal Medicine Work Phone: Comment on above: PATIENT WAS FASTINGP ERFORMED BY: PEGGY [employer] Networkfrank Mfcwef[address] [facility] [id number] Information: [id number] Monocytes (Bld) [#/Vol] 0.5 10*3/uL Normal 0.1-1.0 [facility]; [facility] Work Phone: Monocytes Auto #/vol (Bld) 0.5 {x10E3/uL} Normal 0.1-1.0 [facility] Work Phone: Monocytes/100 WBC (Bld) 10 % Normal 4-13 [facility] Work Phone: Comment on above: PATIENT WAS FASTINGP ERFORMED BY: PEGGY [place] [id number] [facility] [id number] Information: [id number] Monocytes/100 WBC Auto (Bld) 10 % Normal 4-13 [facility] Work Phone: Neutrophils #/vol (Bld) 2.8 {x10E3/uL} Normal 1.8-7.8 [facility] Work Phone: Comment on above: PATIENT WAS FASTINGP ERFORMED BY: PEGGY [facility] Yorkfrank LuisCaigqi[address] [facility] [id number] Information: [id number] Neutrophils (Bld) [#/Vol] 2.8 10*3/uL Normal 1.8-7.8 [facility]; [facility] Work Phone: Neutrophils Auto #/vol (Bld) 2.8 {x10E3/uL} Normal 1.8-7.8 [facility] Work Phone: Neutrophils/100 WBC (Bld) 56 % Normal 40-74 [facility] Work Phone: Comment on above: PATIENT WAS FASTINGP ERFORMED BY: PEGGY [facility] Tjlvhu[address] [facility] [id number] Information: [id number] Neutrophils/100 WBC Auto (Bld) 56 % Normal 40-74 [facility] Work Phone: Platelets #/vol (Bld) 302 {x10E3/uL} Normal 140-415 [facility] Work Phone: Comment on above: PATIENT WAS FASTINGP ERFORMED BY: PEGGY [facility] [facility] [id number] Information: [id number] Platelets (Bld) [#/Vol] 302 10*3/uL Normal 140-415 [facility] Internal Medicine; [facility] Work Phone: Platelets Auto #/vol (Bld) 302 {x10E3/uL} Normal 140-415 [facility] Work Phone: RBC #/vol (Bld) 4.10 {x10E6/uL} Normal 3.80-5.10 Comp [facility] Work Phone: Comment on above: PATIENT WAS FASTINGP ERFORMED BY: [employer] NetworkSaint James HospitalGnyjzs[address] [facility] [id number] Information: [id number] RBC (Bld) [#/Vol] 4.10 10*6/uL Normal 3.80-5.10 Compr [facility] Internal Medicine; [facility] Work Phone: RBC Auto #/vol (Bld) 4.10 {x10E6/uL} Normal 3.80-5.10 [facility] Work Phone: WBC #/vol (Bld) 5.0 {x10E3/uL} Normal 4.0-10.5 [facility] Internal Medicine Work Phone: Comment on above: PATIENT WAS FASTINGP ERFORMED BY: [employer] NetworkSaint James HospitalQgaukp[address] [facility] [id number] Information: [id number] WBC (Bld) [#/Vol] 5.0 10*3/uL Normal 4.0-10.5 [facility]; [facility] Work Phone: WBC Auto #/vol (Bld) 5.0 {x10E3/uL} Normal 4.0-10.5 [facility] Internal Medicine Work Phone: LIPID PANEL ([id number])Ordered B y: Compound Worker on 07-14-2011 Cholesterol in HDL mass conc 62 mg/dL Normal [facility] Work Phone: Comment on above: According to ATP-III Guidelines, HDL-C >59 mg/dL is considered anegative risk factor for CHD. PATIENT WAS FASTINGP ERFORMED BY: PEGGY [facility] Qlhpjw1651 [address] RoadDublin [place] [id number] Cholesterol in LDL mass conc 162 mg/dL Abnormal 0-99 [facility] Work Phone: Comment on above: PATIENT WAS FASTINGP ERFORMED BY: PEGGY LabCofrank Qvztll7486 [address] RoadDublin [place] [id number] Cholesterol in LDL/Cholesterol in HDL mass ratio 2.6 {ratio_units} Normal 0.0-3.2 [facility] Work Phone: Comment on above: PATIENT WAS FASTINGP ERFORMED BY: PEGGY [facility] Lxmasj6456 [address] RoadDuin [place] [id number] Cholesterol in VLDL mass conc 24 mg/dL Normal 5-40 [facility] Work Phone: Comment on above: PATIENT WAS FASTINGP ERFORMED BY: PEGGY LabCofrank LuisYkwkgj0890 Spencer RoadDuAffinity Health Partners [id number] Cholesterol mass conc 248 mg/dL Abnormal 100-199 [facility]hch[facility] Internal Medicine Work Phone: Comment on above: PATIENT WAS FASTINGP ERFORMED BY: PEGGY [facility] Ymkjaz8351 [address] RoadDuin [place] [id number] Triglyceride mass conc 121 mg/dL Normal 0-149 Co [facility] Internal Medicine Work Phone: Comment on above: PATIENT WAS FASTINGP ERFORMED BY: PEGGY LabCofrank Jnuwoo[address] [facility]in [place] [id number] METABOLIC PANEL, COMPREHENSI VE ([id number])Ordered By: Compound Worker on 07-14-2011 Albumin mass conc 4.1 g/dL Normal 3.6-4.8 Compreh ensive Internal Medicine Work Phone: Comment on above: PATIENT WAS FASTINGP ERFORMED BY: PEGGY [facility] Nllxxn8446 [address] RoadDublin [place] [id number] Albumin/Globulin mass ratio 1.9 {ratio} Normal 1.1-2.5 [facility] Work Phone: Comment on above: PATIENT WAS FASTINGP ERFORMED BY: PEGGY [facility] Zytzmx8[address] RoadDublin [place] [id number] ALP [Catalytic activity/Vol] 86 U/L Normal 25-165 [facility]; [facility] Internal Medicine Work Phone: ALP enzyme act/vol 86 [iU]/L Normal 25-[address] [facility] Internal Medicine Work Phone: Comment on above: PATIENT WAS FASTINGP ERFORMED BY: PEGGY Nielsen[address] [facility] [id number] ALT [Catalytic activity/Vol] 18 U/L Normal 0-40 [facility]; [facility] Internal Medicine Work Phone: ALT enzyme act/vol 18 [iU]/L Normal 0-[address] [facility] Internal Medicine Work Phone: Comment on above: PATIENT WAS FASTINGP ERFORMED BY: PEGGY Luislin[address] [facility] [id number] AST [Catalytic activity/Vol] 16 U/L Normal 0-40 [facility] Internal Medicine; [facility] Internal Medicine Work Phone: AST enzyme act/vol 16 [iU]/L Normal 0-[address] [facility] Internal Medicine Work Phone: Comment on above: PATIENT WAS FASTINGP ERFORMED BY: PEGGY Nielsen[address] [facility] [id number] Bilirubin mass conc 0.1 mg/dL Normal 0.0-1.2 [facility] Internal Medicine Work Phone: Comment on above: PATIENT WAS FASTINGP ERFORMED BY: PEGGY Luislin[address] [facility] [id number] Calcium mass conc 9.7 mg/dL Normal 8.6-10.2 [facility] Internal Medicine Work Phone: Comment on above: PATIENT WAS FASTINGP ERFORMED BY: PEGGY Luislin[address] [facility] [id number] Chloride molar conc 102 mmol/L Normal 97-108 [facility] Internal Medicine Work Phone: Comment on above: PATIENT WAS FASTINGP ERFORMED BY: PEGGY Luislin[address] [facility] [id number] CO2 molar conc 26 mmol/L Normal 20-32 Comprehens [facility] Work Phone: Comment on above: PATIENT WAS FASTINGP ERFORMED BY: PEGGY LabBladimir LuisRyineq67[address] [facility] [id number] Creatinine mass conc 0.82 mg/dL Normal 0.57-1.00 Comp rehensive Internal Medicine Work Phone: Comment on above: PATIENT WAS FASTINGP ERFORMED BY: PEGGY LabCofrank LuisNkatec[address] [facility] [id number] GFR/1.73 sq M predicted among blacks CKD-EPI vol rate/area (S/P/Bld) 89 mL/min/1.73 Normal [facility] Work Phone: Comment on above: PATIENT WAS FASTINGP ERFORMED BY: PEGGY Luislin[address] [facility] [id number] GFR/1.73 sq M predicted among non-blacks CKD-EPI vol rate/area (S/P/Bld) 77 mL/min/1.73 Normal Comprehensiv e Internal Medicine Work Phone: Comment on above: PATIENT WAS FASTINGP ERFORMED BY: PEGGY Luislin[address] [facility] [id number] Globulin Calculated mass conc (S) 2.2 g/dL Normal 1.5-4.5 [facility] Work Phone: Globulin mass conc (S) 2.2 g/dL Normal 1.5-4.5 [facility] Work Phone: Comment on above: PATIENT WAS FASTINGP ERFORMED BY: PEGGY [facility] Oqzrtn[address] [facility] [id number] Glucose mass conc 105 mg/dL Abnormal 65-99 Compreh ensive Internal Medicine Work Phone: Comment on above: PATIENT WAS FASTINGP ERFORMED BY: PEGGY LabCofrank LuisZnjqqg35[address] [facility] [id number] Potassium molar conc 5.8 mmol/L Abnormal 3.5-5.2 Comp rehensive Internal Medicine Work Phone: Comment on above: Client Requested [place] g PATIENT WAS FASTINGP ERFORMED BY: PEGGY Alonfrank LuisEfdrjz[address] [employer] Mobile AppNovant Health [facility] [id number] Protein mass conc 6.3 g/dL Normal 6.0-8.5 Compreh ensive Internal Medicine Work Phone: Comment on above: PATIENT WAS FASTINGP ERFORMED BY: PEGGY LabRavinfrank LuisHonmdu029[address] [employer] AppNovant Health [facility] [id number] Sodium molar conc 138 mmol/L Normal 134-144 Compreh ensive Internal Medicine Work Phone: Comment on above: PATIENT WAS FASTINGP ERFORMED BY: PEGGY LabBladimir LuisWgninh47[address] [facility] [id number] Urea nitrogen mass conc 17 mg/dL Normal 8-27 [facility] Work Phone: Comment on above: PATIENT WAS FASTINGP ERFORMED BY: PEGGY [facility]arridoCameron [facility] Center Dzfoiv[address] [employer] AppNovant Health [facility] [id number] Urea nitrogen/Creatinine mass ratio 21 mg/mg Normal 11-26 [facility] Work Phone: Comment on above: PATIENT WAS FASTINGP ERFORMED BY: PEGGY Luislin[address] [facility] [id number] MICROALBUMINOrdered By: Syst em Railroad Signal Operator on 07-14-2011 Albumin DL <= 20 mg/L mass conc (U) 1.6 ug/mL Normal 0.0-17.0 [facility] Work Phone: Comment on above: PATIENT WAS FASTINGP ERFORMED BY: PEGGY [facility] Uuawbm[address] [employer] AppNovant Health [facility] [id number] Albumin/Creatinine mass ratio (U) 3.6 {mg/g_creat} Normal 0.0-30.0 [facility] Work Phone: Comment on above: PATIENT WAS FASTINGP ERFORMED BY: PEGGY LabCamer[facility] Acmuky[address] [facility] [id number] Creatinine mass conc (U) 44.2 mg/dL Normal 15.0-278.0 [facility] Work Phone: Comment on above: PATIENT WAS FASTINGP ERFORMED BY: LabCo Qcxplq[address] [facility] [id number] TSH ([id number])Ordered By: Suresh tadeo Railroad Signal Operator on 07-14-2011 Thyrotropin Qn 1.600 {uIU/mL} Normal 0.450-4.50 0 [facility] Work Phone: Comment on above: PATIENT WAS FASTINGP ERFORMED BY: PEGGY [facility] Vnipky[address] [facility] [id number] Anaerobic and Aerobic Cultur eOrdered By: Compound Worker on 06-30-2011 Bacteria identified Aer cx Nom [...] S PELVIS WITH IV CONTRASTOrder ed By: Compound Worker on 06-27-2011 PELVIS WITH IV CONTRAST See [...] EDTElectronically Signed GP/GP Professional Interpretation Provided By: [facility], , To consult with a radiologist regarding this report, please call our [id number] line @ Dictated on 06/27/11 1138 by Andrew SCHULZ,Joselynranscribed on 06/27/11 1300 by ITS IMPORTSign by [...] Work Phone: CHEST, PA AND LATERALOrdered By: Compound Worker on 02-26-2011 CHEST, PA AND LATERAL See [...] radiologist regarding this report, please call our [id number] line @ Dictated on 02/26/11 1004 by Sami Forde MDTranscribed on 02/28/11 0155 by ITS IMPORTSign by Sami Forde MD on 02/28/11 015 Sign by: Sami Forde MD VIT D,25 [id number] By: Sy stem Railroad Signal Operator on 02-26-2011 VIT D,25 58231 13.2 ng/mL Abnormal 30.0-100.0 Comprehens [facility] Internal Medicine Work Phone: Comment on above: Vitamin D deficiency has been defined by the [place] ofMedicine and an Endocrine Society practice guideline as alevel of serum 25-OH vitamin D less than 20 ng/mL (1,2).The Endocrine Society went on to further define vitamin Dinsufficiency as a level between 21 and 29 ng/mL (2).1. IOM ([place] of Medicine). 2011. Dietary reference intakes for calcium and D. [place]: The National Academies Press.2. Jonna MF, Yomi NC, Jason-Ayden DUNHAM, et al. Evaluation, treatment, and prevention of vitamin D deficiency: an Endocrine Society clinical practice guideline. JCEM. 2010; 96(7):1911-30.Performed at: [address] [id number] Director: Em Christy MD, Phone: [phone] [facility] CULTURE-OTHER ([id number])Ord ered By: Compound Worker on 02-25-2011 Bacteria identified Respiratory culture Nom (Unsp spec) BETAGF Normal [facility] Work Phone: Comment on above: Beta hemolytic Strep tococcus, group FModerate growth PATIENT NOT FASTINGP ERFORMED BY: CB [facility] Ymgdza2[address] RoadDublin [place] [id number] Information: SRC:THRT [id number] Bacteria identified Respiratory culture Nom (Unsp spec) Final report Normal [facility] Work Phone: Comment on above: PATIENT NOT FASTINGP ERFORMED BY: CB [facility] Jpoasu7[address] RoadDublin [place] [id number] Information: SRC:THRT [id number] Rapid Strep Test, Office (01 009)Ordered By: Mer Solorio on 02-25-2011 S. pyogenes Ag EIA Ql (Throat) Negative Normal [facility]; [facility] Work Phone: S. pyogenes Ag IA Ql (Unsp spec) Negative Normal [facility] Work Phone: Blood Glucose , Office ([phone])Ordered By: Deacon Luna on 01-11-2011 Glucose Glucometer molar conc (BldC) 84 1 Normal [facility] Work Phone: TSHOrdered By: System Manage r on 01-08-2011 Thyrotropin Qn 0.18 {uIU/mL} Abnormal 0.358-3.74 Compreh ensive [facility] Medicine Work Phone: TSHOrdered By: System Manage r on 10-07-2010 Thyrotropin Qn 14.90 {uIU/mL} Abnormal 0.358-3.74 Compre hensive Internal Medicine Work Phone: OCCULT BLD,iFOBOrdered By: S ystem Railroad Signal Operator on 01-23-2010 OCCULT BLD,iFOB See Note Normal [...] parvum, Cyclospora, or Microsporidia. TESTING PERFORMED AT [facility]. ORIGINAL REPORT ON FILE IN LAB CONTAINS ADDITIONAL TEST SITE INFORMATION. OVA/ PARASITES EXAM NO OVA, CYSTS, OR PARASITES FOUND. CBCD,SMEAR DIFFOrdered By: Luis Fernando maguiretem Railroad Signal Operator on 01-22-2010 Eosinophils/100 WBC Auto (Bld) 1 % Normal 0-5 [facility] Work Phone: Erythrocyte distribution width Auto Ratio (RBC) 13.4 % Normal 11.6-14.6 [facility] Work Phone: Hematocrit Auto Volume Fraction (Bld) 39.2 % Normal 37-47 [facility] Work Phone: Hemoglobin mass conc (Bld) 13.3 g/dL Normal 12.0-16.0 [facility] Work Phone: Lymphocytes/100 WBC Auto (Bld) 26 % Normal 19-41 [facility] Work Phone: MCH Auto Entitic mass (RBC) 30.3 pg Normal 27.0-32.0 [facility] Work Phone: MCHC Auto mass conc (RBC) 33.8 g/dL Normal 32-36 [facility] Work Phone: MCV Auto Entitic volume (RBC) 89.4 fL Normal 81-99 [facility] Work Phone: Monocytes/100 WBC Auto (Bld) 10 % Normal 0-10 [facility] Work Phone: Neutrophils Auto #/vol (Bld) 4.0 3/uL Normal 2.0-7.7 [facility] Work Phone: Platelets Auto #/vol (Bld) 231 10*3/uL Normal 150-450 [facility] Internal Medicine Work Phone: RBC Auto #/vol (Bld) 4.38 {M/mm3} Normal 4.2-5.4 Co m[facility] Work Phone: WBC Auto #/vol (Bld) 7.0 10*3/uL Normal 4.4-11.0 [facility] prehensive Internal Medicine Work Phone: CBCD,SMEAR DIFF 63 % Normal 47-70 Comprehen [facility] Internal Medicine Work Phone: CBCD,SMEAR DIFF SeeNote Normal [facility] Work Phone: Comment on above: Result: ADEQUATE Result: NORM C+C CBCD,SMEAR DIFF RARE Normal [facility] Work Phone: CBCD,SMEAR DIFF 100 1 Normal [facility] Internal Medicine Work Phone: LIONEL CULTURE-OTHER ([id number])Ord ered By: Compound Worker on 01-21-2010 Bacteria identified Respiratory culture Nom (Unsp spec) Final report Normal [facility] Work Phone: Comment on above: PATIENT NOT FASTINGP ERFORMED BY: PEGGY LabCoSaint James HospitalGpskyc[address] [facility] [id number] Information: SRC:THRT [id number] Bacteria identified Respiratory culture Nom (Unsp spec) [...] Disease, July,.) PATIENT NOT FASTINGP ERFORMED BY: PEGGY LabCoSaint James HospitalOdbwpn[address] [facility] [id number] Information: SRC:THRT [id number] Rapid Strep Test, Office (89 [id number])Ordered By: Claudia Jules on 01-21-2010 S. pyogenes Ag EIA Ql (Throat) Negative Normal [facility]; [facility] Work Phone: S. pyogenes Ag IA Ql (Unsp spec) Negative Normal [facility] Work Phone: CBCD,SMEAR DIFFOrdered By: Luis Fernando ystem Railroad Signal Operator on 12-29-2009 Band form neutrophils/100 WBC Manual [...] WBC Auto (Bld) 34 % Normal 19-41 [facility] Work Phone: MCH Auto Entitic mass (RBC) 30.8 pg Normal 27.0-32.0 [facility] Work Phone: MCHC Auto mass conc (RBC) 34.2 g/dL Normal 32-36 [facility] Work Phone: MCV Auto Entitic volume (RBC) 90.0 fL Normal 81-99 [facility] Work Phone: Monocytes/100 WBC Auto (Bld) 7 % Normal 0-10 [facility] Work Phone: Neutrophils Auto #/vol (Bld) 3.4 3/uL Normal 2.0-7.7 [facility] Work Phone: Platelets Auto #/vol (Bld) 235 10*3/uL Normal 150-450 [facility] Internal Medicine Work Phone: RBC Auto #/vol (Bld) 4.37 {M/mm3} Normal 4.2-5.4 Co [facility] Internal Medicine Work Phone: WBC Auto #/vol (Bld) 6.0 10*3/uL Normal 4.4-11.0 [facility] Work Phone: CBCD,SMEAR DIFF 54 % Normal 47-70 Comprehen [facility] Internal Medicine Work Phone: CBCD,SMEAR DIFF 100 1 Normal Comprehen [facility] Internal Medicine Work Phone: COMP METABOLICOrdered By: Ed stem Railroad Signal Operator on 12-29-2009 Albumin mass conc 3.8 g/dL Normal 3.4-5.0 Compreh [facility] Internal Medicine Work Phone: Albumin/Globulin mass ratio 1.2 {RATIO} Normal 0.9-2.4 [facility] Internal Medicine Work Phone: ALP enzyme act/vol 79 U/L Normal 50-[address] [facility] Internal Medicine Work Phone: ALT enzyme act/vol 28 U/L Normal 12-[address] [facility] Internal Medicine Work Phone: Anion gap 3 molar conc 6 mmol/L Normal 5-15 Co [facility] Internal Medicine Work Phone: AST enzyme act/vol 10 U/L Abnormal 15-[address] [facility] Internal Medicine Work Phone: Bilirubin mass conc 0.40 mg/dL Normal 0.00-1.00 [facility] Internal Medicine Work Phone: Calcium mass conc 9.2 mg/dL Normal 8.5-10.1 [facility] Internal Medicine Work Phone: Chloride molar conc 103 mmol/L Normal 98-107 [facility] Internal Medicine Work Phone: CO2 molar conc 30.0 mmol/L Normal 21.0-32.0 [facility] Internal Medicine Work Phone: Creatinine mass conc [...] 10-20 [facility] Work Phone: FREE [id number] By: Cammie nunez on 12-29-2009 T3 free mass conc 2.7 pg/mL Normal 2.18-3.98 Compreh ensive Internal Medicine Work Phone: KNEE,4 OR MORE VIEWSOrdered By: Compound Worker on 12-29-2009 KNEE,4 OR MORE VIEWS See Note Normal Comp rehensive Internal Medicine Work Phone: Comment on above: Exam Number: [id number] LINICAL:The patient is a 59 year [...] NORM C+C NMR LIPOPROFILEOrdered By: Luis Fernando whalen Railroad Signal Operator on 12-29-2009 Cholesterol mass conc 232 mg/dL Abnormal Com prehensive Internal Medicine Work Phone: Triglyceride mass conc 85 mg/dL Normal Co mprehensive [facility] Work Phone: NMR LIPOPROFILE . Normal [facility] Work Phone: NMR LIPOPROFILE 21.3 nm Normal [facility] Internal Medicine Work Phone: Comment on above: [...] 19.0 NMR LIPOPROFILE 58 1 Abnormal Comprehen [facility] Internal Medicine Work Phone: Comment on [...] 27 45 63 >63Performed at: S[address] - [address] [place], [place] [id number] Director: Doyle Bianchi PhD, Phone: [phone] NMR LIPOPROFILE 57 mg/dL Normal Comprehen [facility] Internal Medicine Work Phone: NMR LIPOPROFILE 37.7 umol/L Normal Comprehe nsive Internal Medicine Work Phone: NMR LIPOPROFILE 1996 nmol/L Abnormal Comprehe nsive Internal Medicine Work Phone: Comment on above: Low < 1000 Moderate 1000 - 1299 Borderline-High 1300 - 1599 High 1600 - 2000 Very High > 2000 NMR LIPOPROFILE 869 nmol/L Abnormal [facility] Work Phone: NMR LIPOPROFILE 158 mg/dL Abnormal Comprehen [facility] Internal Medicine Work Phone: Comment on above: LDL-C is inaccurate if patient is nonfasting. . Optimal < 100 Above optimal 100 - 129 Borderline 130 - 159 High 160 - 189 Very high > 189 . T4 FREE DIRECTOrdered By: Sy stem Railroad Signal Operator on 12-29-2009 T4 free mass conc 1.14 ng/dL Normal 0.76-1.46 Compreh ensive Internal Medicine Work Phone: TSHOrdered By: System Manage r on 12-29-2009 Thyrotropin Qn 6.27 {uIU/mL} Abnormal 0.358-3.74 Compreh ensive Internal Medicine Work Phone: LOWER EXT.JOINT ONLY (ROUTIN E)Ordered By: Compound Worker on 07-14-2009 LOWER EXT.JOINT ONLY (ROUTINE) See Note Normal [facility] Work Phone: Comment on above: Exam Number: [id number] CLINICAL:59-year-old female with an 8 day [...] WALSH M.D. CBCD,SMEAR DIFFOrdered By: Luis Fernando [facility] Railroad Signal Operator on 10-31-2008 Eosinophils/100 WBC Auto (Bld) 5 % Normal 0-5 [facility] Work Phone: Erythrocyte distribution width Auto Ratio (RBC) 13.5 % Normal 11.6-14.6 [facility] Internal Medicine Work Phone: Hematocrit Auto Volume Fraction (Bld) 40.1 % Normal 37-47 [facility] Internal Medicine Work Phone: Hemoglobin mass conc (Bld) 13.6 g/dL Normal 12.0-16.0 [facility] Internal Medicine Work Phone: Lymphocytes/100 WBC Auto (Bld) 39 % Normal 19-41 [facility] Internal Medicine Work Phone: MCH Auto Entitic mass (RBC) 29.5 pg Normal 27.0-32.0 [facility] Internal Medicine Work Phone: MCHC Auto mass conc (RBC) 33.9 g/dL Normal 32-36 [facility] Internal Medicine Work Phone: MCV Auto Entitic volume (RBC) 86.9 fL Normal 81-99 [facility] Internal Medicine Work Phone: Monocytes/100 WBC Auto (Bld) 6 % Normal 0-10 [facility] Internal Medicine Work Phone: Platelets Auto #/vol (Bld) 234 10*3/uL Normal 150-450 [facility] Internal Medicine Work Phone: RBC Auto #/vol (Bld) 4.61 {M/mm3} Normal 4.2-5.4 [facility] Work Phone: WBC Auto #/vol (Bld) 4.5 10*3/uL Normal 4.4-11.0 [facility] prehensive Internal Medicine Work Phone: CBCD,SMEAR DIFF SeeNote Normal Comprehen [facility] Internal Medicine Work Phone: Comment on above: Result: ADEQUATE Result: NORM C+C Result: NEGATIVE CBCD,SMEAR DIFF 100 1 Normal [facility] Internal Medicine Work Phone: CBCD,SMEAR DIFF 50 % Normal 47-70 [facility] Internal Medicine Work Phone: COMP METABOLICOrdered By: Ed stem Railroad Signal Operator on 10-31-2008 Albumin mass conc 3.9 g/dL Normal 3.4-5.0 [facility] Internal Medicine Work Phone: Albumin/Globulin mass ratio 1.1 {RATIO} Normal 0.9-2.4 [facility] Internal Medicine Work Phone: ALP enzyme act/vol 86 U/L Normal 50-[address] [facility] Internal Medicine Work Phone: ALT enzyme act/vol 27 U/L Abnormal 30-[address] [facility] Internal Medicine Work Phone: Anion gap 3 molar conc 9 mmol/L Normal 5-15 Co [facility] Internal Medicine Work Phone: AST enzyme act/vol 13 U/L Abnormal 15-[address] [facility] Internal Medicine Work Phone: Bilirubin mass conc 0.40 mg/dL Normal 0.00-1.00 [facility] Internal Medicine Work Phone: Calcium mass conc 8.9 mg/dL Normal 8.5-10.1 Compreh [facility] Internal Medicine Work Phone: Chloride molar conc 100 mmol/L Normal 98-107 [facility] Internal Medicine Work Phone: CO2 molar conc 28.0 mmol/L Normal 21.0-32.0 [facility] Work Phone: Creatinine mass conc 1.0 mg/dL Normal 0.6-1.0 [facility] Internal Medicine Work Phone: GFR/1.73 sq M predicted among blacks MDRD vol rate/area (S/P/Bld) 74 mL/min/{1.73_m2} Normal Comprehens e Internal Medicine Work Phone: GFR/1.73 sq [...] Internal Medicine Work Phone: ROUTINE UAOrdered By: Compound Worker on 10-31-2008 ROUTINE UA CLOUDY Normal Comprehensive [...] Thyrotropin Qn 35.40 {uIU/mL} Abnormal 0.358-3.74 [facility]pre [facility] Work Phone: ANKLE,MIN 3 VIEWSOrdered By: Compound Worker on 10-29-2008 ANKLE,MIN 3 VIEWS See Note Normal Compreh ensive Internal Medicine Work Phone: Comment on above: Exam Number: [id number] RIGHT ANKLE 3 VIEWS HISTORYPain. There is minimal arthritic change in the ankle joint. The anklemortis appears symmetric. No acute traumatic or bony destructivechanges seen. IMPRESSIONMinimal arthritis. Reported By: VAMSI SANDERS M.D. Rapid Strep Test, Office (02 [id number])Ordered By: RACHEL Bartlett on 07-10-2008 S. pyogenes Ag EIA Ql (Throat) Negative Normal [facility]; [facility] Work Phone: S. pyogenes Ag IA Ql (Unsp spec) Negative Normal [facility] Work Phone: SPINE, CERVICAL (ROUTINE)Ord ered By: Compound Worker on 04-29-2008 SPINE, CERVICAL (ROUTINE) See Note Normal [facility] Work Phone: Comment on above: Exam Number: [id number] MRI CERVICAL SPINE CLINICAL STATEMENTNeck pain, [...] right. Reported By: JEFFREY VELEZ M.D. PANCHO-D [id number] By: Syst em Railroad Signal Operator on 04-18-2007 Nuclear Ab Ql (S) 31 AU/mL Normal 0-99 [facility] Work Phone: Comment on above: Negative <100 Equivo william 100 - 120 Positive >120 C-REACTIVE PROTOrdered By: S ystem Railroad Signal Operator on 04-18-2007 CRP mass conc 5.02 mg/L Normal 0.0-6.0 [facility] Work Phone: Comment on above: Test performed using the Dimension C-Reactive ProteinExtended Range assay method. This assay meets the AHA/CDC 2003 recommendations fordetermining patients at high risk for cardiovasculardisease. Reference: High risk CRP >3.0 mg/L EB-NAg [id number] By: S ystem Railroad Signal Operator on 04-18-2007 EB-NAg [id number] 377 AU/mL Abnormal 0-99 [facility] Internal Medicine Work Phone: Comment on above: Negative <100 Equivo william 100 - 120 Positive >120 EBV [id number] By: S ystem Railroad Signal Operator on 04-18-2007 EBV [id number] 45 AU/mL Normal 0-99 [facility] Internal Medicine Work Phone: Comment on above: Negative <100 Equivo william 100 - 120 Positive >120 EBV [id number]/[id number] 33 AU/mL Normal 0-99 [facility] Work Phone: Comment on above: Negative <100 Equivo william 100 - 120 Positive >120 ESROrdered By: System Manage r on 04-18-2007 ESR Velocity (Bld) 12 mm/h Normal 0-30 Compre [facility] Internal Medicine Work Phone: FOLATES,SERUMOrdered By: Sys tem Railroad Signal Operator on 04-18-2007 Folate mass conc 9.70 ng/mL Normal Comprehe nsive Internal Medicine Work Phone: RA LATEX [id number] By: ZanAquas tem Railroad Signal Operator on 04-18-2007 RA LATEX 6502 6.3 {IU/mL} Normal 0.0-13.9 Comprehens [facility] Internal Medicine Work Phone: Comment on above: Performed At: [facility] or[address] [id number] TSHOrdered By: System Manage r on 04-18-2007 Thyrotropin Qn 0.74 {uIU/mL} Normal 0.34-4.82 Compreh ensive Internal Medicine Work Phone: VITAMIN [id number] By: Suresh m Railroad Signal Operator on 04-18-2007 Cobalamin (Vitamin B12) mass conc 298 pg/mL Normal 211-911 [facility] Work Phone: CBC, EMPLOYEEOrdered By: ZanAquas tem Railroad Signal Operator on 04-03-2007 Erythrocyte distribution width Auto Ratio [...] Entitic volume (Bld) 8.9 fL Normal 6.5-12.0 [facility] Work Phone: Platelets Auto #/vol (Bld) 254 10*3/uL Normal 150-450 [facility] Work Phone: RBC Auto #/vol (Bld) 4.27 {M/mm3} Normal 4.2-5.4 [facility] Work Phone: WBC Auto #/vol (Bld) 6.4 10*3/uL Normal 4.4-11.0 Com prehensive Internal Medicine Work Phone: EMP PROFOrdered By: Cammie garcia on 04-03-2007 Albumin mass conc 3.8 g/dL Normal 3.4-5.0 Compreh ensive Internal Medicine Work Phone: Albumin/Globulin mass ratio 1.2 {RATIO} Normal 0.9-2.4 [facility] Work Phone: ALP enzyme act/vol 80 U/L Normal 50-136 [facility] Work Phone: AST enzyme act/vol 11 U/L Abnormal 15-37 [facility] Work Phone: Bilirubin mass conc 0.21 mg/dL Normal 0.00-1.00 Compr ensive Internal Medicine Work Phone: Calcium mass conc [...] Internal Medicine Work Phone: EMP URINALYSISOrdered By: ZanAqua stem Railroad Signal Operator on 04-03-2007 Protein mass conc SeeNote Normal [...] Phone: MYOCARD PERF SPECT REST/STRE SSOrdered By: Compound Worker on 01-16-2007 MYOCARD PERF SPECT REST/STRESS See Note Normal [facility] Work Phone: Comment on above: Exam Number: [id number] MYOCARDIAL PERFUSION SCAN TECHNIQUEThe patient was [...] Reported By: KRISTYN LEBLANC M.D. C-Reactive Protein ([id number])Or dered By: Melissa Arnett on 12-21-2006 CRP mass conc 3.7 mg/L Normal 0.0-4.9 Comprehensi ve Internal Medicine Work Phone: Comment on above: PATIENT NOT FASTINGP ERFORMED BY: CB [facility] [id number]Dublin [place] [id number] CBC With Differential/Platel etOrdered By: Compound Worker on 12-21-2006 Basophils Auto #/vol (Bld) 0.1 {x10E3/uL} Normal 0.0-0.2 [facility] Work Phone: Basophils/100 WBC Auto (Bld) 1 % Normal 0-3 [facility] Work Phone: Eosinophils Auto #/vol (Bld) 0.1 {x10E3/uL} Normal 0.0-0.4 [facility] Work Phone: Eosinophils/100 WBC Auto (Bld) 2 % Normal 0-7 [facility] Work Phone: Erythrocyte distribution width Auto Ratio (RBC) 13.8 % Normal 11.7-15.0 [facility] Work Phone: Hematocrit Auto Volume Fraction (Bld) 39.6 % Normal 34.0-44.0 [facility] Work Phone: Hemoglobin mass conc (Bld) 13.4 g/dL Normal 11.5-15.0 [facility] Work Phone: Lymphocytes Auto #/vol (Bld) 1.9 {x10E3/uL} Normal 0.7-4.5 [facility] Work [...] Auto #/vol (Bld) 5.4 {x10E3/uL} Normal 4.0-10.5 [facility] Internal Medicine Work Phone: Comp. Metabolic Panel (14)Or dered By: Compound Worker on 12-21-2006 Albumin mass conc 4.3 g/dL Normal 3.5-5.5 Compreh [facility] Internal Medicine Work Phone: Albumin/Globulin mass ratio 1.8 {ratio} Normal 1.1-2.5 [facility] Internal Medicine Work Phone: ALP enzyme act/vol 85 [iU]/L Normal 25-[address] [facility] Internal Medicine Work Phone: ALT enzyme act/vol 23 [iU]/L Normal 0-[address] [facility] Internal Medicine Work Phone: AST enzyme act/vol 20 [iU]/L Normal 0-[address] [facility] Internal Medicine Work Phone: Bilirubin mass conc 0.4 mg/dL Normal 0.1-1.2 Compr [facility] Internal Medicine Work Phone: Calcium mass conc 9.3 mg/dL Normal 8.5-10.6 Compreh ensive Internal Medicine Work Phone: Chloride molar conc 99 mmol/L Normal 96-109 Compr [facility] Internal Medicine Work Phone: CO2 molar conc 25 mmol/L Normal 20-32 Comprehens [facility] Internal Medicine Work Phone: Creatinine mass conc 1.0 mg/dL Normal 0.5-1.5 Comp [facility] Internal Medicine Work Phone: Globulin Calculated mass [...] Medicine Work Phone: Creatine Kinase,Total,SerumO rdered By: Compound Worker on 12-21-2006 CK enzyme act/vol 41 U/L Normal 24-173 Compreh ensive Internal Medicine Work Phone: LIPID PANEL ([id number])Ordered B y: Melissa Hope on 12-21-2006 Cholesterol in HDL mass conc 53 mg/dL Normal 40-59 [facility] Work Phone: Comment on above: PATIENT NOT FASTINGP ERFORMED BY: PEGGY [employer]rik70 [facility] [id number] Cholesterol in LDL mass conc 170 mg/dL Abnormal 0-99 [facility] Work Phone: Comment on above: PATIENT NOT FASTINGP ERFORMED BY: Peerius [id number] [employer] CompanyCasey County Hospital [id number] Cholesterol in LDL/Cholesterol in HDL mass ratio SPRCS Normal [facility] Work Phone: Comment on above: If initial LDL-frederick sterol result is >100 mg/dL, assess forrisk factors. PATIENT NOT FASTINGP ERFORMED BY: [employer]70 [facility] [id number] Cholesterol in LDL/Cholesterol in HDL mass ratio 3.2 {ratio_units} Normal 0.0-3.2 [facility] Work Phone: Comment on above: PATIENT NOT FASTINGP ERFORMED BY: PEGGY [employer] [place] [employer] AppNovant Health [facility] [id number] Cholesterol in VLDL mass conc 21 mg/dL Normal 5-40 [facility] Work Phone: Comment on above: PATIENT NOT FASTINGP ERFORMED BY: PEGGY [employer] Geekka[address] AbGenomicsAffinity Health Partners [id number] Cholesterol mass conc 244 mg/dL Abnormal 100-199 Com prehensive Internal Medicine Work Phone: Comment on above: PATIENT NOT FASTINGP ERFORMED BY: PEGGY [employer] Networkrp Ttbkbv[address] [place] Mobile AppNovant Health [facility] [id number] Triglyceride mass conc 105 mg/dL Normal 0-149 Co mprehensive [facility] Medicine Work Phone: Comment on above: PATIENT NOT FASTINGP ERFORMED BY: PEGGY [employer] Securitylin[address] [place] Mobile AppNovant Health [facility] [id number] TSHOrdered By: System Manage r on 12-21-2006 Thyrotropin Qn 0.077 {uIU/mL} Abnormal 0.350-5.50 0 [facility] Work Phone: Upper Respiratory CultureOrd ered By: Compound Worker on 12-21-2006 Bacteria identified Respiratory culture Nom (Unsp spec) RRF Normal [facility] Work Phone: Comment on above: Routine respiratory ventura Bacteria identified Respiratory culture Nom (Unsp spec) Final report Normal [facility] Work Phone: SPINE, LUMBAR (ROUTINE)Order ed By: Compound Worker on 09-15-2006 SPINE, LUMBAR (ROUTINE) See Note Normal [facility] Work Phone: Comment on above: Exam Number: [id number] MRI LUMBAR SPINE CLINICAL STATEMENTLow back [...] Reported By: JEFFREY VELEZ M.D. BMPOrdered By: [employer] r on 04-28-2006 Anion gap 3 molar conc 10 mmol/L Normal 5-15 Co mprehensive Internal Medicine Work Phone: Calcium mass conc 9.4 mg/dL Normal 8.5-10.1 Compreh ensive Internal Medicine Work Phone: Chloride molar conc 98 mmol/L Normal 98-107 Compr ehensive Internal Medicine Work Phone: CO2 molar conc 28.9 mmol/L Normal 22.0-29.[address] [facility] Work Phone: Creatinine mass conc [...] Internal Medicine Work Phone: CBCOrdered By: System Auth0 r on 04-19-2006 Erythrocyte distribution width Auto [...] Auto #/vol (Bld) 6.8 10*3/uL Normal 4.4-11.0 Com prehensive Internal Medicine Work Phone: GLUOrdered By: System Manage r on 02-02-2006 Glucose mass conc 102 mg/dL Normal 70-110 Compreh ensive Internal Medicine Work Phone: GLUPOrdered By: System Manag er on 02-02-2006 GLUP 53 mg/dL Abnormal [facility] Work Phone: [id number] By: System Manag er on 02-02-2006 T3UP 1.9 1 Normal 1.4-4.5 [facility] Work Phone: T3UP 30 % Normal 30-39 [facility] Work Phone: T4 THYROXINOrdered By: Suresh tadeo [employer] Signal Operator on 02-02-2006 T4 THYROXIN 6.4 ug/dL Normal 4.8-13.9 [facility] Work Phone: TSHOrdered By: System Manage r on 02-02-2006 Thyrotropin Qn 20.71 {uIU/mL} Abnormal 0.34-4.[address] [facility] Work Phone: Vital Signs Date Time Vital Sign Value Performing Clinician Facility 10-29-2024 15:01-0400 Body height 160.02 cm Mayra Escobedo NP-C Work Phone: [facility] 10-29-2024 15:01-0400 Body mass index (BMI) [Ratio] 31.1 kg/m2 Mayra Gregg MANAGER FURNITURE-C Work Phone: [facility] 10-29-2024 15:01-0400 Body weight 79.83 kg Mayra Gregg MANAGER FURNITURE-C Work Phone: [facility] 10-29-2024 15:01-0400 Diastolic blood pressure 83 mm[Hg] Mayra Gregg MANAGER FURNITURE-C Work Phone: [facility] 10-29-2024 15:01-0400 Heart rate 85 /min Mayra Gregg MANAGER FURNITURE-C Work Phone: [facility] 10-29-2024 15:01-0400 Respiratory rate 16 /min Mayra Gregg MANAGER FURNITURE-C Work Phone: [facility] 10-29-2024 15:01-0400 Systolic blood pressure 181 mm[Hg] Mayra Gregg MANAGER FURNITURE-C Work Phone: [facility] 04-26-2024 15:28-0500 Body height 160.02 cm Mayra Gregg MANAGER FURNITURE-C Work Phone: [facility] 04-26-2024 15:28-0500 Body mass index (BMI) [Ratio] 30.8 kg/m2 Mayra Gregg MANAGER FURNITURE-C Work Phone: [facility] 04-26-2024 15:28-0500 Body weight 78.92 kg Mayra Gregg MANAGER FURNITURE-C Work Phone: [facility] 04-26-2024 15:28-0500 Diastolic blood pressure 83 mm[Hg] Mayra Gregg MANAGER FURNITURE-C Work Phone: [facility] 04-26-2024 15:28-0500 Heart rate 87 /min Mayra Gregg MANAGER FURNITURE-C Work Phone: [facility] 04-26-2024 15:28-0500 Respiratory rate 18 /min Mayra Gregg MANAGER FURNITURE-C Work Phone: [facility] 04-26-2024 15:28-0500 SaO2% (BldA) [Mass fraction] 96 % Mayra Gregg MANAGER FURNITURE-C Work Phone: [facility] 04-26-2024 15:28-0500 Systolic blood pressure 145 mm[Hg] Mayra Gregg MANAGER FURNITURE-C Work Phone: [facility] 04-02-2024 12:00-0500 Body temperature 97.7 [degF] Mayra Coxam MANAGER FURNITURE-C Work Phone: [facility] 04-02-2024 12:00-0500 Diastolic blood pressure 81 mm[Hg] Mayra Coxam MANAGER FURNITURE-C Work Phone: [facility] 04-02-2024 12:00-0500 Heart rate 71 /min Mayra Coxam MANAGER FURNITURE-C Work Phone: [facility] 04-02-2024 12:00-0500 Respiratory rate 14 /min Mayra Coxam MANAGER FURNITURE-C Work Phone: [facility] 04-02-2024 12:00-0500 SaO2% (BldA) [Mass fraction] 96 % Mayra Gregg MANAGER FURNITURE-C Work Phone: [facility] 04-02-2024 12:00-0500 Systolic blood pressure 178 mm[Hg] Mayra Gregg MANAGER FURNITURE-C Work Phone: [facility] 04-02-2024 11:20-0500 Body mass index (BMI) [Ratio] 31.2 kg/m2 Mayra Gregg MANAGER FURNITURE-C Work Phone: [facility] 04-02-2024 10:18-0500 Body weight 80 kg Mayra Coxam MANAGER FURNITURE-C Work Phone: [facility] 06-15-2023 15:07-0400 Body temperature 98.5 [degF] [facility] 06-15-2023 15:07-0400 Diastolic blood pressure 76 mm[Hg] [facility] 06-15-2023 15:07-0400 Heart rate 73 /min [facility] 06-15-2023 15:07-0400 Respiratory rate 18 /min [facility] 06-15-2023 15:07-0400 SaO2% (BldA) [Mass fraction] 98 % [facility] 06-15-2023 15:07-0400 Systolic blood pressure 140 mm[Hg] [facility] 06-14-2023 16:06-0400 Body height 162.56 cm [facility] 06-14-2023 16:06-0400 Body mass index (BMI) [Ratio] 30.8 kg/m2 [facility] 06-14-2023 16:06-0400 Body weight 81.4 kg [facility] 06-14-2023 16:06-0400 Inhaled oxygen flow rate 2 L/min [facility] 12-14-2022 14:34-0400 Body height 162.56 cm Yuki Fischer LPN [facility]; [facility] Work Phone: [...] 14:34-0400 Systolic blood pressure 148 mm[Hg] Yuki Fischer LPN [facility]; [...] SaO2% (BldA) [Mass fraction] 98 % RACHEL Dhruv COMMERCIAL PLUMBER [facility]; [facility] Work Phone: 10-31-2022 09:24-0400 Systolic blood pressure 120 mm[Hg] RACHEL Dhruv [facility]; [facility] Work Phone: 10-25-2022 11:15-0400 Respiratory rate 16 /min [facility] 10-25-2022 09:41-0400 Body height 160.02 cm [facility] 10-25-2022 09:41-0400 Body mass index (BMI) [Ratio] 32.9 kg/m2 [facility] 10-25-2022 09:41-0400 Body temperature 97.3 [degF] [facility] 10-25-2022 09:41-0400 Body weight 84.36 kg [facility] 10-25-2022 09:41-0400 Diastolic blood pressure 95 mm[Hg] [facility] 10-25-2022 09:41-0400 Heart rate 80 /min [facility] 10-25-2022 09:41-0400 SaO2% (BldA) [Mass fraction] 98 % [facility] 10-25-2022 09:41-0400 Systolic blood pressure 187 mm[Hg] [facility] 07-01-2022 14:08-0400 Body height 162.56 cm [facility]; [facility] Work Phone: 07-01-2022 14:08-0400 Body mass index (BMI) [Ratio] 32.7 kg/m2 [facility]; [facility] Work Phone: 07-01-2022 14:08-0400 Body surface area Derived from formula 1.92 m2 [facility]; [facility] Work Phone: 07-01-2022 14:08-0400 Body temperature 98 [degF] [facility]; [facility] Work Phone: 07-01-2022 14:08-0400 Body weight 86.41 kg [facility]; [facility] Work Phone: 07-01-2022 14:08-0400 Diastolic blood pressure 80 mm[Hg] [facility]; [facility] Work Phone: 07-01-2022 14:08-0400 Heart rate 78 /min [facility]; [facility] Work Phone: 07-01-2022 14:08-0400 Respiratory rate 16 /min [facility]; [facility] Work Phone: 07-01-2022 14:08-0400 SaO2% (BldA) [Mass fraction] 97 % [facility]; [facility] Work Phone: 07-01-2022 14:08-0400 Systolic blood pressure 124 mm[Hg] [facility]; [facility] Work Phone: 06-14-2022 10:55-0400 Body height 162.56 cm Radha Slarb [facility]; [facility] Work Phone: 06-14-2022 10:55-0400 Body mass index (BMI) [Ratio] 32.96 kg/m2 Radha Slarb [employer]CIAL [employer] [facility]; [facility] Work Phone: 06-14-2022 10:55-0400 Body surface area Derived from formula 1.92 m2 Radha Slarb [employer]CIAL [employer] [facility]; [facility] Work Phone: 06-14-2022 10:55-0400 Body weight 87.09 kg Radha Slarb COMMERCIAL [employer]UM[employer] [facility]; [facility] Work Phone: 03-28-2022 14:14-0500 Body height 162.56 cm Radha Slarb [employer]CIAL [employer] [facility]; [facility] Work Phone: 03-28-2022 14:14-0500 Body mass index (BMI) [Ratio] 32.96 kg/m2 Radha Slarb [employer]CIAL [employer] [facility]; [facility] Work Phone: 03-28-2022 14:14-0500 Body surface area Derived from formula 1.92 m2 Radha Slarb [employer]CIAL [employer] [facility]; [facility] Work Phone: 03-28-2022 14:14-0500 Body temperature 97.3 [degF] Radha Slarb COMMERCIAL [employer] [facility]; [facility] Work Phone: 03-28-2022 14:14-0500 Body weight 87.09 kg Radha Slarb [employer]CIAL [employer] [facility]; [facility] Work Phone: 03-28-2022 14:14-0500 Diastolic blood pressure 96 mm[Hg] Radha Slarb [employer]CIAL [employer] [facility]; [facility] Work Phone: 03-28-2022 14:14-0500 Heart rate 81 /min Radha Slarb [employer]CIAL [employer] [facility]; [facility] Work Phone: 03-28-2022 14:14-0500 Respiratory rate 17 /min Radha Slarb [employer]CIAL [employer] [facility]; [facility] Work Phone: 03-28-2022 14:14-0500 SaO2% (BldA) [Mass fraction] 97 % Radha Slarb [employer]CIAL [employer] [facility]; [facility] Work Phone: 03-28-2022 14:14-0500 Systolic blood pressure 172 mm[Hg] Radha Slarb [employer]CIAL [employer] [facility]; [facility] Work Phone: 12-14-2021 14:24-0400 Body height 162.56 cm Radha Slarb [employer]CIAL [employer] [facility]; [facility] Work Phone: 12-14-2021 14:24-0400 Body mass index (BMI) [Ratio] 32.78 kg/m2 Radha Slarb [employer]CIAL [employer] [facility]; [facility] Work Phone: 12-14-2021 14:24-0400 Body surface area Derived from formula 1.92 m2 Radha Slarb [employer]CIAL [employer] [facility]; [facility] Work Phone: 12-14-2021 14:24-0400 Body temperature 97.8 [degF] Radha Slarb COMM[employer]CIAL [employer] [facility]; [facility] Work Phone: 12-14-2021 14:24-0400 Body weight 86.64 kg Radha Slarb [employer]CIAL [employer] [facility]; [facility] Work Phone: 12-14-2021 14:24-0400 Diastolic blood pressure 100 mm[Hg] Radha Slarb [employer]CIAL [employer] [facility]; [facility] Work Phone: 12-14-2021 14:24-0400 Heart rate 81 /min Radha Slarb [employer]CIAL [employer] [facility]; [facility] Work Phone: 12-14-2021 14:24-0400 Respiratory rate 16 /min Radha Slarb [employer]CIAL [employer] [facility]; [facility] Work Phone: 12-14-2021 14:24-0400 SaO2% (BldA) [Mass fraction] 98 % Radha Slarb [employer]CIAL [employer] [facility]; [facility] Work Phone: 12-14-2021 14:24-0400 Systolic blood pressure 172 mm[Hg] Radha Slarb COMMERCIAL [employer] [facility]; [facility] Work Phone: 07-22-2021 08:23-0400 Body height 160.02 cm [facility] Work Phone: 07-22-2021 08:23-0400 Body mass index (BMI) [Ratio] 32.5 kg/m2 [facility] Work Phone: 07-22-2021 08:23-0400 Body temperature 97.4 [degF] [facility] Work Phone: 07-22-2021 08:23-0400 Body weight 83.46 kg [facility] Work Phone: 07-22-2021 08:23-0400 Diastolic blood pressure 99 mm[Hg] [facility] Work Phone: 07-22-2021 08:23-0400 Heart rate 90 /min [facility] Work Phone: 07-22-2021 08:23-0400 Respiratory rate 14 /min [facility] Work Phone: 07-22-2021 08:23-0400 SaO2% (BldA) [Mass fraction] 100 % [facility] Work Phone: 07-22-2021 08:23-0400 Systolic blood pressure 194 mm[Hg] [facility] Work Phone: 04-06-2021 15:01-0500 Diastolic blood pressure [...] area Derived from formula 1.92 m2 RACHEL Dhruv BALLESTEROS [facility]; [facility] Work Phone: 04-06-2021 15:00-0500 Body temperature 97.9 [degF] RACHEL Bartlett FAVIAN [facility]; [facility] Work Phone: 04-06-2021 15:00-0500 Body weight 87.09 kg RACHEL Bartlett LPN [facility]; [facility] Work Phone: 04-06-2021 15:00-0500 Diastolic blood pressure 110 mm[Hg] RACHELBERNADETTE Bartlett LPN [facility]; [facility] Work Phone: 04-06-2021 15:00-0500 Heart rate 80 /min RACHEL Bartlett LPN [facility]; [facility] Work Phone: 04-06-2021 15:00-0500 Respiratory rate 18 /min RACHEL Bartlett LPN [facility]; [facility] Work Phone: 04-06-2021 15:00-0500 SaO2% (BldA) [Mass fraction] 98 % RACHEL Dhruv BALLESTEROS [facility]; [facility] Work Phone: 04-06-2021 15:00-0500 Systolic blood pressure 160 mm[Hg] RACHEL Dhruv BALLESTEROS [facility]; [facility] [...] 14:37-0500 Systolic blood pressure 168 mm[Hg] Yuki Amado FAVIAN [facility]; [facility] Work Phone: 11-09-2020 13:43-0400 Body height 162.56 cm Yuki Fischer LPN [...] 13:43-0400 Body temperature 97.9 [degF] Yuki Amado LPN [facility]; [facility] Work Phone: 11-09-2020 13:43-0400 Body weight 87.15 kg Yuki Fischer LPN [facility]; [facility] Work Phone: 11-09-2020 13:43-0400 Diastolic blood pressure 90 mm[Hg] Yuki Fischer LPN [facility]; [facility] Work Phone: 11-09-2020 13:43-0400 Heart rate 87 /min Yuki Fischer LPN [facility]; [facility] Work Phone: 11-09-2020 13:43-0400 Respiratory rate 16 /min Yuki Fischer LPN [facility]; [facility] Work Phone: 11-09-2020 13:43-0400 SaO2% (BldA) [Mass fraction] 97 % Yuki Fischer LPN [facility]; [facility] Work Phone: 11-09-2020 13:43-0400 Systolic blood pressure 140 mm[Hg] Yuki Amado [employer]CIAL [employer] [facility]; [facility] Work Phone: 10-27-2020 15:20-0400 Body height 162.56 cm Yuki Amado [employer]CIAL [employer] [facility]; [facility] Work Phone: 10-27-2020 15:20-0400 Body mass index (BMI) [Ratio] 33.16 kg/m2 Yuki Amado [employer]CIAL [employer] [facility]; [facility] Work Phone: 10-27-2020 15:20-0400 Body surface area Derived from formula 1.93 m2 Yuki Amado [employer]CIAL [employer] [facility]; [facility] Work Phone: 10-27-2020 15:20-0400 Body weight 87.64 kg Yuki Amado [employer]CIAL [employer] [facility]; [facility] Work Phone: 10-27-2020 15:20-0400 Diastolic blood pressure 81 mm[Hg] Yuki Amado COMMERCIAL [employer] [facility]; [facility] Work Phone: 10-27-2020 15:20-0400 Systolic blood pressure 173 mm[Hg] Yuki Amado [employer]CIAL [employer] [facility]; [facility] Work Phone: 10-20-2020 09:14-0400 Body height 162.56 cm Radha Slarb [employer]CIAL [employer] [facility]; [facility] Work Phone: 10-20-2020 09:14-0400 Body mass index (BMI) [Ratio] 33.16 kg/m2 Radha Slarb [employer]CIAL [employer] [facility]; [facility] Work Phone: 10-20-2020 09:14-0400 Body surface area Derived from formula 1.93 m2 Radha Slarb [employer]CIAL [employer] [facility]; [facility] Work Phone: 10-20-2020 09:14-0400 Body temperature 97.1 [degF] Radha Slarb [employer]CIAL [employer] [facility]; [facility] Work Phone: 10-20-2020 09:14-0400 Body weight 87.64 kg Radha Slarb [employer]CIAL [employer] [facility]; [facility] Work Phone: 10-20-2020 09:14-0400 Diastolic blood pressure 98 mm[Hg] Radha Slarb [employer]CIAL [employer] [facility]; [facility] Work Phone: 10-20-2020 09:14-0400 Heart rate 92 /min Radha Slarb [employer]CIAL [employer] [facility]; [facility] Work Phone: 10-20-2020 09:14-0400 Respiratory rate 16 /min Radha Slarb [employer]CIAL [employer] [facility]; [facility] Work Phone: 10-20-2020 09:14-0400 SaO2% (BldA) [Mass fraction] 99 % Radha Slarb [employer]CIAL [employer] [facility]; [facility] Work Phone: 10-20-2020 09:14-0400 Systolic blood pressure 172 mm[Hg] Radha Slarb [employer]CIAL [employer] [facility]; [facility] Work Phone: 03-13-2020 11:14-0500 BMI (Body Mass Index) 33.16 kg/m2 Nick Kumar LPN [facility]; [facility] Work Phone: 03-13-2020 11:14-0500 Body weight 87.64 kg Nick Kumar LPN [facility]; [facility] Work Phone: 03-13-2020 11:14-0500 BSA (Body Surface Area) 1.93 m2 Nick Kumar LPN [facility]; [facility] Work Phone: 03-13-2020 11:14-0500 Height 162.56 cm Nick Kumar LPN [facility]; [facility] Work Phone: 09-25-2019 14:03-0400 BMI (Body Mass Index) 33.16 kg/m2 Leatha Morrison CNP Work Phone: [facility] Work Phone: 09-25-2019 14:03-0400 Body Temperature 97.2 [degF] Leatha Morrison CNP Work Phone: [facility] Work Phone: 09-25-2019 14:03-0400 Body weight 87.64 kg Leatha Morrison SUPERVISOR [employer]G LICENSE OFFICER Work Phone: [facility] Work Phone: 09-25-2019 14:03-0400 BP Diastolic 86 mm[Hg] Leatha Morriosn SUPERVISOR DOG LICENSE OFFICER Work Phone: [facility] Work Phone: Comment on above: Patient Position: Supine; Cuff Location: Right Arm; Cuff Size: Standard 09-25-2019 14:03-0400 BP Systolic 150 mm[Hg] Leatha Morrison SUPERVISOR DOG LICENSE OFFICER Work Phone: [facility] Work Phone: Comment on above: Patient Position: Supine; Cuff Location: Right Arm; Cuff Size: Standard 09-25-2019 14:03-0400 BSA (Body Surface Area) 1.93 m2 Leatha Morrison CNP Work Phone: [facility] Work Phone: 09-25-2019 14:03-0400 Height 162.56 cm Leatha Morrison SUPERVISOR DOG LICENSE OFFICER Work Phone: [facility] Work Phone: 09-25-2019 14:03-0400 Pulse Oximetry 95 % Leatha Morrison [facility] Work Phone: Comment on above: Room air 09-25-2019 14:03-0400 SaO2% (BldA) [Mass fraction] 95 % Leatha Morrison SUPERVISOR DOG LICENSE OFFICER Work Phone: [facility]; [facility] Work Phone: 08-13-2019 14:53-0400 BMI (Body Mass Index) 33.64 kg/m2 Nick Kumar LPN [facility] Work Phone: 08-13-2019 14:53-0400 Body Temperature 97.7 [degF] Nick Kumar LPN [facility] Work Phone: Comment on above: Method: Temporal 08-13-2019 14:53-0400 Body weight 88.91 kg Nick Kumar LPN [facility] Work Phone: 08-13-2019 14:53-0400 BP Diastolic 100 mm[Hg] Nick Kumar LPN [facility] Work Phone: Comment on above: Patient Position: Sitting; Cuff Location : Left Arm; Cuff Size: Standard 08-13-2019 14:53-0400 BP Systolic 170 mm[Hg] Nick Kumar LPN [facility] Work Phone: Comment on above: Patient Position: Sitting; Cuff Location : Left Arm; Cuff Size: Standard 08-13-2019 14:53-0400 BSA (Body Surface Area) 1.94 m2 Nick Kumar LPN [facility] Work Phone: 08-13-2019 14:53-0400 Height 162.56 cm Nick Kumar LPN [facility] Work Phone: 08-13-2019 14:53-0400 Pulse (Heart Rate) 97 /min Nick Kumar LPN [facility] Work Phone: Comment on above: Pattern: Regular 08-13-2019 14:53-0400 Pulse Oximetry 95 % Leatha Morrison [facility] Work Phone: Comment on above: Room air 08-13-2019 14:53-0400 Respiratory Rate 16 /min Nikc Kumar LPN [facility] Work Phone: Comment on above: Pattern: Unlabored 08-13-2019 14:53-0400 SaO2% (BldA) [Mass fraction] 95 % Nick Kumar LPN [facility]; [facility] Work Phone: 11-05-2018 08:32-0400 BMI (Body Mass Index) 33.64 kg/m2 Leatha Morrison [facility] Work Phone: 11-05-2018 08:32-0400 BMI (Body Mass Index) 33.47 kg/m2 Nick Kumar LPN [facility] Work Phone: 11-05-2018 08:32-0400 Body Temperature 98.7 [degF] Nick Kumar LPN [facility] Work Phone: Comment on above: Method: Temporal 11-05-2018 08:32-0400 Body weight 88.91 kg Leatha Dawkinsleonard [facility] Work Phone: 11-05-2018 08:32-0400 Body weight 88.46 kg Nick Kumar LPN [facility] Work Phone: 11-05-2018 08:32-0400 BP Diastolic 82 mm[Hg] Nick Kumar LPN [facility] Work Phone: Comment on above: Patient Position: Sitting; Cuff Location : Left Arm; Cuff Size: Standard 11-05-2018 08:32-0400 BP Systolic 124 mm[Hg] Nick Kumar LPN [facility] Work Phone: Comment on above: Patient Position: Sitting; Cuff Location : Left Arm; Cuff Size: Standard 11-05-2018 08:32-0400 BSA (Body Surface Area) 1.94 m2 iNck Kumar LPN [facility] Work Phone: 11-05-2018 08:32-0400 Height 162.56 cm Nick Kumar LPN [facility] Work Phone: 11-05-2018 08:32-0400 Pulse (Heart Rate) 84 /min Nick Kumar LPN [facility] Work Phone: Comment on above: Pattern: Regular 11-05-2018 08:32-0400 Pulse Oximetry 96 % Leatha Morrison [facility] Work Phone: Comment on above: Room air 11-05-2018 08:32-0400 Respiratory Rate 16 /min Nikc Kmuar LPN [facility] Work Phone: Comment on above: Pattern: Unlabored 11-05-2018 08:32-0400 SaO2% (BldA) [Mass fraction] 96 % Nick Kumar LPN [facility]; [facility] Work Phone: 10-25-2018 10:31-0400 BMI (Body Mass Index) 33.64 kg/m2 Briana Gravius [facility] Work Phone: 10-25-2018 10:31-0400 Body Temperature 97.7 [degF] Briana Fitzgerald [facility] Work Phone: Comment on above: Method: Temporal 10-25-2018 10:31-0400 Body weight 88.91 kg Briana Fitzgerald [facility] Work Phone: 10-25-2018 10:31-0400 BP Diastolic 92 mm[Hg] Briana Fitzgerald [facility] Work Phone: Comment on above: Patient Position: Sitting; Cuff Location : Left Arm; Cuff Size: Standard 10-25-2018 10:31-0400 BP Systolic 146 mm[Hg] Briana Fitzgerald [facility] Work Phone: Comment on above: Patient Position: Sitting; Cuff Location : Left Arm; Cuff Size: Standard 10-25-2018 10:31-0400 BSA (Body Surface Area) 1.94 m2 Briana Fitzgerald [facility] Work Phone: 10-25-2018 10:31-0400 Height 162.56 cm Briana Fitzgerald [facility] Work Phone: 10-25-2018 10:31-0400 Pulse (Heart Rate) 64 /min Briana Fitzgerald [facility] Work Phone: Comment on above: Pattern: Regular 10-25-2018 10:31-0400 Pulse Oximetry 100 % Leatha Morrison [facility] Work Phone: Comment on above: Room air 10-25-2018 10:31-0400 Respiratory Rate 18 /min Briana Fitzgerald [facility] Work Phone: Comment on above: Pattern: Unlabored 10-25-2018 10:31-0400 SaO2% (BldA) [Mass fraction] 100 % Briana Fitzgerald [facility]; [facility] Work Phone: 06-19-2018 08:42-0400 BMI (Body Mass Index) 33.64 kg/m2 Nick harrell Internal Medicine Work Phone: 06-19-2018 08:42-0400 Body Temperature 97.1 [degF] Nick Kumar FAVIAN [facility] Internal Medicine Work Phone: Comment on above: Method: Temporal 06-19-2018 08:42-0400 Body weight 88.91 kg Nick Kumar FAVIAN [facility] Internal Medicine Work Phone: 06-19-2018 08:42-0400 BP Diastolic 74 mm[Hg] Nick José BALLESTEROS [facility] Internal Medicine Work Phone: Comment on above: Patient Position: Sitting; Cuff Location : Left Arm; Cuff Size: Standard 06-19-2018 08:42-0400 BP Systolic 140 mm[Hg] Nick Kumar FAVIAN [facility] Internal Medicine Work Phone: Comment on above: Patient Position: Sitting; Cuff Location : Left Arm; Cuff Size: Standard 06-19-2018 08:42-0400 BSA (Body Surface Area) 1.94 m2 Nick José BALLESTEROS [facility] Internal Medicine Work Phone: 06-19-2018 08:42-0400 Height 162.56 cm Nick Kumar LPN [facility] Internal Medicine Work Phone: 06-19-2018 08:42-0400 Pulse (Heart Rate) 79 /min Nick José BALLESTEROS [facility] Medicine Work Phone: Comment on above: Pattern: Regular 06-19-2018 08:42-0400 Pulse Oximetry 97 % Leatha Dawkinsleonard [facility] Internal Medicine Work Phone: Comment on above: Room air 06-19-2018 08:42-0400 Respiratory Rate 16 /min Nick José BALLESTEROS [facility] Work Phone: Comment on above: Pattern: Unlabored 06-19-2018 08:42-0400 SaO2% (BldA) [Mass fraction] 97 % Nick Kumar LPN [facility]; [facility] Work Phone: 06-19-2018 08:42-0400 Weight 88.91 kg Leatha Morrison [facility] Internal Medicine Work Phone: 11-15-2017 14:03-0400 BMI (Body Mass Index) 33.64 kg/m2 Crystal Painter [facility] Internal Medicine Work Phone: 11-15-2017 14:03-0400 Body Temperature 97.6 [degF] Crystal Painter [facility] Internal Medicine Work Phone: Comment on above: Method: Temporal 11-15-2017 14:03-0400 Body weight 88.91 kg Crystal Painter [facility] Internal Medicine Work Phone: 11-15-2017 14:03-0400 BP Diastolic 92 mm[Hg] Crystal Painter [facility] Internal Medicine Work Phone: Comment on above: Patient Position: Sitting; Cuff Location : Left Arm; Cuff Size: Standard 11-15-2017 14:03-0400 BP Systolic 130 mm[Hg] Crystal Painter [facility] Internal Medicine Work Phone: Comment on above: Patient Position: Sitting; Cuff Location : Left Arm; Cuff Size: Standard 11-15-2017 14:03-0400 BSA (Body Surface Area) 1.94 m2 Crystal Painter [facility] Internal Medicine Work Phone: 11-15-2017 14:03-0400 Height 162.56 cm Crystal Painter [facility] Internal Medicine Work Phone: 11-15-2017 14:03-0400 Pulse (Heart Rate) 74 /min Crystal Painter [facility] Internal Medicine Work Phone: Comment on above: Pattern: Regular 11-15-2017 14:03-0400 Pulse Oximetry 95 % Leatha Morrison [facility] Internal Medicine Work Phone: Comment on above: Room air 11-15-2017 14:03-0400 Respiratory Rate 17 /min Crystal Painter [facility] Internal Medicine Work Phone: Comment on above: Pattern: Unlabored 11-15-2017 14:03-0400 SaO2% (BldA) [Mass fraction] 95 % Crystal Painter [facility]; [facility] Work Phone: 11-15-2017 14:03-0400 Weight 88.91 kg Leatha Morrison [facility] Internal Medicine Work Phone: 12-19-2016 13:21-0400 Body height 165.1 cm [facility] Work Phone: [...] (Body Mass Index) 33.3 kg/m2 Radha Slarb [employer] [facility] Internal Medicine Work Phone: 11-15-2016 13:18-0400 Body Temperature 97.1 [degF] Radha Slarb [employer] [facility] Internal Medicine Work Phone: 11-15-2016 13:18-0400 Body weight 88 kg Radha Slarb [employer] [facility] Internal Medicine Work Phone: 11-15-2016 13:18-0400 BP Diastolic 88 mm[Hg] Radha Slarb [employer] [facility] Internal Medicine Work Phone: Comment on above: Patient Position: Sitting; Cuff Location : Left Arm; Cuff Size: Standard 11-15-2016 13:18-0400 BP Systolic 138 mm[Hg] Radha Slarb [employer] [facility] Internal Medicine Work Phone: Comment on above: Patient Position: Sitting; Cuff Location : Left Arm; Cuff Size: Standard 11-15-2016 13:18-0400 BSA (Body Surface Area) 1.93 m2 Radha Slarb [employer] [facility] Internal Medicine Work Phone: 11-15-2016 13:18-0400 Height 162.56 cm Radha Slarb [employer] [facility] Work Phone: 11-15-2016 13:18-0400 Pulse (Heart Rate) 75 /min Radha Dumont [employer] [facility] Work Phone: Comment on above: Pattern: Regular 11-15-2016 13:18-0400 Pulse Oximetry 97 % Leatha Morrison [facility] Internal Medicine Work Phone: Comment on above: Room air 11-15-2016 13:18-0400 Respiratory Rate 16 /min Radha Dumont [employer] [facility] Work Phone: Comment on above: Pattern: Unlabored 11-15-2016 13:18-0400 SaO2% (BldA) [Mass fraction] 97 % Radha Slarb [employer] [facility]; [facility] Work Phone: 11-15-2016 13:18-0400 Weight 88 kg Leatha Morrison [facility] Work Phone: 11-16-2015 08:53-0400 BMI (Body Mass Index) 33.13 kg/m2 Radha Harrisrb [employer] [facility] Internal Medicine Work Phone: 11-16-2015 08:53-0400 Body Temperature 97 [degF] Radha Stevenrb [employer] [facility] Work Phone: 11-16-2015 08:53-0400 Body weight 87.54 kg Radha Slarb [employer] [facility] Work Phone: 11-16-2015 08:53-0400 BP Diastolic 84 mm[Hg] Radha Slarb [employer] [facility] Work Phone: Comment on above: Patient Position: Sitting; Cuff Location : Left Arm; Cuff Size: Standard 11-16-2015 08:53-0400 BP Systolic 134 mm[Hg] Radha Slarb [employer] [facility] Work Phone: Comment on above: Patient Position: Sitting; Cuff Location : Left Arm; Cuff Size: Standard 11-16-2015 08:53-0400 BSA (Body Surface Area) 1.93 m2 Radha Slarb [employer] [facility] Work Phone: 11-16-2015 08:53-0400 Height 162.56 cm Radha Tim BALLESTEROS [facility] Work Phone: 11-16-2015 08:53-0400 Pulse (Heart Rate) 75 /min Radha Dumont LPN [facility] Work Phone: Comment on above: Pattern: Regular 11-16-2015 08:53-0400 Pulse Oximetry 95 % Leatha Morrison [facility] Internal Medicine Work Phone: Comment on above: Room air 11-16-2015 08:53-0400 Respiratory Rate 17 /min Radha Dumont LPN [facility] Work Phone: Comment on above: Pattern: Unlabored 11-16-2015 08:53-0400 SaO2% (BldA) [Mass fraction] 95 % Radha Dumont LPN [facility]; [facility] Work Phone: 11-16-2015 08:53-0400 Weight 87.54 kg Leatha Morrison [facility] Internal Medicine Work Phone: 09-04-2015 13:53-0400 BMI (Body Mass Index) 34.35 kg/m2 Mer Solorio RN [facility] Internal [facility] Work Phone: 09-04-2015 13:53-0400 Body [...] 13:53-0400 Pulse Oximetry 98 % Leatha Morrison [facility] Internal Medicine Work Phone: Comment on above: Room air 09-04-2015 13:53-0400 Respiratory Rate 16 /min Mer Solorio RN [facility] Work Phone: Comment on above: Pattern: Unlabored 09-04-2015 13:53-0400 SaO2% (BldA) [Mass fraction] 98 % Mer Solorio RN [facility]; [facility] Work Phone: 09-04-2015 13:53-0400 Weight 90.78 kg Leatha Morrison [facility] Internal Medicine Work Phone: 02-23-2015 08:34-0500 BMI (Body Mass Index) 33.84 kg/m2 Radha Tim BALLESTEROS [facility] Internal Medicine Work Phone: 02-23-2015 08:34-0500 Body Temperature 97.1 [degF] Radha Harrisrb [employer] [facility] Internal Medicine Work Phone: 02-23-2015 08:34-0500 Body weight 89.42 kg Radha Tim BALLESTEROS [facility] Internal Medicine Work Phone: 02-23-2015 08:34-0500 BP Diastolic 86 mm[Hg] Radha Slarb [employer] [facility] Internal Medicine Work Phone: Comment on above: Patient Position: Sitting; Cuff Location : Left Arm; Cuff Size: Standard 02-23-2015 08:34-0500 BP Systolic 138 mm[Hg] Radha Stevenrb [employer] [facility] Internal Medicine Work Phone: Comment on above: Patient Position: Sitting; Cuff Location : Left Arm; Cuff Size: Standard 02-23-2015 08:34-0500 BSA (Body Surface Area) 1.94 m2 Radha Slarb [employer] [facility] Work Phone: 02-23-2015 08:34-0500 Height 162.56 cm Radha Dumont [employer] [facility] Work Phone: 02-23-2015 08:34-0500 Pulse (Heart Rate) 104 /min Radha Dumont LPN [facility] Work Phone: Comment on above: Pattern: Regular 02-23-2015 08:34-0500 Pulse Oximetry 97 % Leatha Morrison [facility] Internal Medicine Work Phone: Comment on above: Room air 02-23-2015 08:34-0500 Respiratory Rate 18 /min Radha Dumont [employer] [facility] Work Phone: Comment on above: Pattern: Unlabored 02-23-2015 08:34-0500 SaO2% (BldA) [Mass fraction] 97 % Radha Harrisrb [employer] [facility]; [facility] Work Phone: 02-23-2015 08:34-0500 Weight 89.42 kg Leatha Morrison [facility] Internal Medicine Work Phone: 01-13-2015 13:52-0500 BMI (Body Mass Index) 34.07 kg/m2 Radha Harrisrb [employer] [facility] Medicine Work Phone: 01-13-2015 13:52-0500 Body Temperature 97.8 [degF] Radha Harrisrb [employer] [facility] Work Phone: 01-13-2015 13:52-0500 Body weight 90.04 kg Radha Harrisrb [employer] [facility] Work Phone: 01-13-2015 13:52-0500 BP Diastolic 94 mm[Hg] Radha Slarb [employer] [facility] Work Phone: Comment on above: Patient Position: Sitting; Cuff Location : Left Arm; Cuff Size: Standard 01-13-2015 13:52-0500 BP Systolic 152 mm[Hg] Radha Stevenrb [employer] [facility] Work Phone: Comment on above: Patient Position: Sitting; Cuff Location : Left Arm; Cuff Size: Standard 01-13-2015 13:52-0500 BSA (Body Surface Area) 1.95 m2 Radha Dumont LPN [facility] Work Phone: 01-13-2015 13:52-0500 Height 162.56 cm Radha Dumont LPN [facility] Work Phone: 01-13-2015 13:52-0500 Pulse (Heart Rate) 81 /min Radha Dumont LPN [facility] Work Phone: Comment on above: Pattern: Regular 01-13-2015 13:52-0500 Pulse Oximetry 97 % Leatha Morrison [facility] Internal Medicine Work Phone: Comment on above: Room air 01-13-2015 13:52-0500 Respiratory Rate 18 /min Radha Dumont LPN [facility] Work Phone: Comment on above: Pattern: Unlabored 01-13-2015 13:52-0500 SaO2% (BldA) [Mass fraction] 97 % Radha Dumont LPN [facility]; [facility] Work Phone: 01-13-2015 13:52-0500 Weight 90.04 kg Leatha Morrison [facility] Internal Medicine Work Phone: 11-18-2014 14:45-0400 BMI (Body Mass Index) 34.07 kg/m2 Isisqian [place] [facility] o[facility]e Internal Medicine Work Phone: 11-18-2014 14:45-0400 Body Temperature 98.1 [degF] Isis [facility] Internal Medicine Work Phone: Comment on above: Method: Oral 11-18-2014 14:45-0400 Body weight 90.04 kg Isis [facility] Internal Medicine Work Phone: 11-18-2014 14:45-0400 BP Diastolic 74 mm[Hg] [facility]: Comment on above: Patient Position: Sitting; Cuff Location : Left Arm; Cuff Size: Standard 11-18-2014 14:45-0400 BP Systolic 122 mm[Hg] [facility] Work [facility]: Comment on above: Patient Position: Sitting; Cuff Location : Left Arm; Cuff Size: Standard 11-18-2014 14:45-0400 BSA (Body Surface Area) 1.95 m2 Isis [place] [facility] Internal Medicine Work Phone: 11-18-2014 14:45-0400 Height 162.56 cm Isis [place] [facility] Internal Medicine Work Phone: 11-18-2014 14:45-0400 Pulse (Heart Rate) 59 /min Isis [place] [facility] Internal Medicine Work Phone: Comment on above: Pattern: Regular 11-18-2014 14:45-0400 Pulse Oximetry 94 % Leatha Morrison [facility] Internal Medicine Work Phone: Comment on above: Room air 11-18-2014 14:45-0400 Respiratory Rate 18 /min Isis [place] [facility] Internal Medicine Work Phone: Comment on above: Pattern: Unlabored 11-18-2014 14:45-0400 SaO2% (BldA) [Mass fraction] 94 % Isis [place] [facility]; [facility] Work Phone: 11-18-2014 14:45-0400 Weight 90.04 kg Leatha Morrison [facility] Medicine Work Phone: 11-05-2014 14:59-0400 Body surface area Derived from formula 1.98 m2 [facility] Work Phone: 11-05-2014 14:59-0400 Respiratory rate 14 /min [facility] Work Phone: 10-14-2014 11:48-0400 BMI (Body Mass Index) 34.01 kg/m2 [facility] Internal Medicine Work Phone: 10-14-2014 11:48-0400 Body Temperature 97.7 [degF] Violetta Virgen [facility] Work Phone: Comment on above: Method: Oral 10-14-2014 11:48-0400 Body weight 89.87 kg [facility] Internal Medicine Work Phone: 10-14-2014 11:48-0400 BP Diastolic 92 mm[Hg] [facility] Internal Medicine Work Phone: Comment on above: Patient Position: Sitting; Cuff Location : Left Arm; Cuff Size: Standard 10-14-2014 11:48-0400 BP Systolic 162 mm[Hg] Violet[facility] Internal Medicine Work Phone: Comment on above: Patient Position: Sitting; Cuff Location : Left Arm; Cuff Size: Standard 10-14-2014 11:48-0400 BSA (Body Surface Area) 1.95 m2 [facility] Internal Medicine Work Phone: 10-14-2014 11:48-0400 Height 162.56 cm [facility] Internal Medicine Work Phone: 10-14-2014 11:48-0400 Pulse (Heart Rate) 82 /min [facility] Internal Medicine Work Phone: Comment on above: Pattern: Regular 10-14-2014 11:48-0400 Pulse Oximetry 96 % Leatha Morrison [facility] Internal Medicine Work Phone: Comment on above: Room air 10-14-2014 11:48-0400 Respiratory Rate 16 /min [facility] Internal Medicine Work Phone: Comment on above: Pattern: Unlabored 10-14-2014 11:48-0400 SaO2% (BldA) [Mass fraction] 96 % [facility]; [facility] Work Phone: 10-14-2014 11:48-0400 Weight 89.87 kg Leatha Morrison [facility] Internal Medicine Work Phone: 08-19-2014 09:44-0400 BMI (Body Mass Index) 34.01 kg/m2 Isis romeo Internal Medicine Work Phone: 08-19-2014 09:44-0400 Body Temperature 97.7 [degF] Isis [place] [facility] Work Phone: Comment on above: Method: Tympanic 08-19-2014 09:44-0400 Body weight 89.87 kg Isis [place] [facility] Work Phone: 08-19-2014 09:44-0400 BP Diastolic 84 mm[Hg] Iiss [place] [facility] Internal Medicine Work Phone: Comment on above: Patient Position: Sitting; Cuff Location : Left Arm; Cuff Size: Standard 08-19-2014 09:44-0400 BP Systolic 146 mm[Hg] Isis [place] [facility] Work Phone: Comment on above: Patient Position: Sitting; Cuff Location : Left Arm; Cuff Size: Standard 08-19-2014 09:44-0400 BSA (Body Surface Area) 1.95 m2 Isis [place] [facility] Work Phone: 08-19-2014 09:44-0400 Height 162.56 cm Isis [place] [facility] Work Phone: 08-19-2014 09:44-0400 Pulse (Heart Rate) 84 /min Isis [place] [facility] Work Phone: Comment on above: Pattern: Regular 08-19-2014 09:44-0400 Pulse Oximetry 98 % Leatha Morrison [facility] Work Phone: Comment on above: Room air 08-19-2014 09:44-0400 Respiratory Rate 18 /min Isis [place] [facility] Work Phone: Comment on above: Pattern: Unlabored 08-19-2014 09:44-0400 SaO2% (BldA) [Mass fraction] 98 % Isis [place] [facility]; [facility] Work Phone: 08-19-2014 09:44-0400 Weight 89.87 kg Leatha Morrison [facility] Work Phone: 04-01-2014 14:06-0500 BMI (Body Mass Index) 31.85 kg/m2 Julianne Donnelly LPN [facility] Work Phone: 04-01-2014 14:06-0500 Body Temperature 98.2 [degF] Julianne Donnelly LPN [facility] Work Phone: Comment on above: Method: Oral 04-01-2014 14:06-0500 Body weight 84.17 kg Julianne Donnelly LPN [facility] [...] Phone: 04-01-2014 14:06-0500 Height 162.56 cm Julianne Donnelly LPN [facility] Work Phone: 04-01-2014 14:06-0500 Pulse (Heart Rate) 88 /min Julianne Donnelly LPN [facility] Work Phone: Comment on above: Pattern: Regular 04-01-2014 14:06-0500 Pulse Oximetry 98 % Leatha Morrison [facility] Work Phone: Comment on above: Room air 04-01-2014 14:06-0500 SaO2% (BldA) [Mass fraction] 98 % Julianne Donnelly LPN [facility]; [facility] Work Phone: 04-01-2014 14:06-0500 Weight 84.17 kg Leatha Morrison [facility] Work Phone: 11-12-2013 09:16-0400 [...] 11-12-2013 09:16-0400 Pulse Oximetry 98 % Leatha Tamiko [facility] Work Phone: Comment on above: Room air 11-12-2013 09:16-0400 Respiratory Rate 20 /min Bonnie Moise RN [facility] Work Phone: Comment on above: Pattern: Unlabored 11-12-2013 09:16-0400 SaO2% (BldA) [Mass fraction] 98 % Bonnie Moise RN [facility]; [facility] Work Phone: 11-12-2013 09:16-0400 Weight 84.17 kg Leatha Doshiabram [facility] Work Phone: 08-26-2013 08:49-0400 [...] 08-26-2013 08:49-0400 Weight 81.19 kg Leatha Morrison [facility] Internal Medicine Work Phone: Comment on above: alot stress with going back to work. 07-08-2013 14:59-0400 Body temperature 97.8 [degF] Tori [facility] Work Phone: 05-13-2013 14:34-0400 BMI (Body Mass Index) 30.55 kg/m2 RACHEL Bartlett [facility] Internal Medicine Work Phone: 05-13-2013 14:34-0400 Body Temperature 98.4 [degF] RACHEL Bartlett [facility] Internal Medicine Work Phone: Comment on above: Method: Oral 05-13-2013 14:34-0400 Body weight 80.74 kg RACHEL Bartlett [facility] Internal Medicine Work Phone: 05-13-2013 14:34-0400 BP Diastolic 78 mm[Hg] RACHEL Bartlett [facility] Internal Medicine Work Phone: Comment on above: Patient Position: Sitting; Cuff Location : Left Arm; Cuff Size: Standard 05-13-2013 14:34-0400 BP Systolic 124 mm[Hg] RACHEL Bartlett [facility] Internal Medicine Work Phone: Comment on above: Patient Position: Sitting; Cuff Location : Left Arm; Cuff Size: Standard 05-13-2013 14:34-0400 BSA (Body Surface Area) 1.86 m2 RACHEL Bartlett [employer] [facility] Internal Medicine Work Phone: 05-13-2013 14:34-0400 Height 162.56 cm RACHEL Dhruv [facility] Internal Medicine Work Phone: 05-13-2013 14:34-0400 Pulse (Heart Rate) 74 /min RACHEL Bartlett [facility] Internal Medicine Work Phone: Comment on above: Pattern: Regular 05-13-2013 14:34-0400 Respiratory Rate 20 /min RACHEL Bartlett LPN [facility] Work Phone: Comment on above: Pattern: Unlabored 05-13-2013 14:34-0400 Weight 80.74 kg Leatha Morrison [facility] Internal Medicine Work Phone: 03-11-2013 14:29-0500 BMI (Body Mass Index) 30.55 kg/m2 RACHEL Bartlett LPN [facility] Internal Medicine Work Phone: 03-11-2013 14:29-0500 Body Temperature 97.9 [degF] RACHEL Bartlett LPN [facility] Work Phone: Comment on above: Method: Oral 03-11-2013 14:29-0500 Body weight 80.74 kg RACHEL Bartlett LPN [facility] Internal Medicine Work Phone: 03-11-2013 14:29-0500 BP Diastolic 80 mm[Hg] RACHEL Bartlett LPN [facility] Internal Medicine Work Phone: Comment on above: Patient Position: Sitting; Cuff Location : Left Arm; Cuff Size: Standard 03-11-2013 14:29-0500 BP Systolic 122 mm[Hg] RACHEL Bartlett LPN [facility] Internal Medicine Work Phone: Comment on above: Patient Position: Sitting; Cuff Location : Left Arm; Cuff Size: Standard 03-11-2013 14:29-0500 BSA (Body Surface Area) 1.86 m2 RACHEL Bartlett LPN [facility] Internal Medicine Work Phone: 03-11-2013 14:29-0500 Height 162.56 cm RACHEL Bartlett LPN [facility] Internal Medicine Work Phone: 03-11-2013 14:29-0500 Pulse (Heart Rate) 70 /min RACHEL Bartlett LPN [facility] Internal Medicine Work Phone: Comment on above: Pattern: Regular 03-11-2013 14:29-0500 Respiratory Rate 18 /min RACHEL Bartlett LPN [facility] Internal Medicine Work Phone: Comment on above: Pattern: Unlabored 03-11-2013 14:29-0500 Weight 80.74 kg Leatha Morrison [facility] Internal Medicine Work Phone: 01-21-2013 14:50-0500 BMI (Body Mass Index) 31.28 kg/m2 [facility] Internal Medicine Work Phone: 01-21-2013 14:50-0500 Body weight 82.67 kg [facility] Internal Medicine Work Phone: 01-21-2013 14:50-0500 BP Diastolic 84 mm[Hg] Violet[facility] Internal Medicine Work Phone: Comment on above: Patient Position: Sitting; Cuff Location : Left Arm; Cuff Size: Standard 01-21-2013 14:50-0500 BP Systolic 150 mm[Hg] [facility] Internal Medicine Work Phone: Comment on above: Patient Position: Sitting; Cuff Location : Left Arm; Cuff Size: Standard 01-21-2013 14:50-0500 BSA (Body Surface Area) 1.88 m2 [facility] Internal Medicine Work Phone: 01-21-2013 14:50-0500 Height 162.56 cm [facility] Internal Medicine Work Phone: 01-21-2013 14:50-0500 Pulse (Heart Rate) 82 /min [facility] Internal Medicine Work Phone: Comment on above: Pattern: Regular 01-21-2013 14:50-0500 Respiratory Rate 16 /min [facility] Internal Medicine Work Phone: Comment on above: Pattern: Unlabored 01-21-2013 14:50-0500 Weight 82.67 kg Leatha Morrison [facility] Internal Medicine Work Phone: 11-16-2012 14:21-0400 BMI (Body Mass Index) 31.28 kg/m2 [facility] Work Phone: 11-16-2012 14:21-0400 Body Temperature 97.8 [degF] Julianne Donnelly [facility] Internal Medicine Work Phone: Comment on above: Method: Oral 11-16-2012 14:21-0400 Body weight 82.67 kg Julianne Donnelly LPN [facility] Internal Medicine Work Phone: 11-16-2012 14:21-0400 BP Diastolic 80 mm[Hg] Julianne Donnelly LPN [facility] Internal Medicine Work Phone: Comment on above: Patient Position: Sitting; Cuff Location : Left Arm; Cuff Size: Standard 11-16-2012 14:21-0400 BP Systolic 122 mm[Hg] Julianne Donnelly LPN [facility] Work Phone: Comment on above: Patient Position: Sitting; Cuff Location : Left Arm; Cuff Size: Standard 11-16-2012 14:-0400 BSA (Body Surface Area) 1.88 m2 Julianne Donnelly LPN [facility] Work Phone: 11-16-2012 14:0400 Height 162.56 cm Julianne Donnelly LPN [facility] Work Phone: 11-16-2012 14:21-0400 Pulse (Heart Rate) 72 /min Julianne Donnelly LPN [facility] Work Phone: Comment on above: Pattern: Regular 11-16-2012 14:21-0400 Pulse Oximetry 98 % Leatha Morrison [facility] Work Phone: Comment on above: Room air 11-16-2012 14:21-0400 Respiratory Rate 16 /min Julianne Donnelly LPN [facility] Work Phone: 11-16-2012 14:21-0400 SaO2% (BldA) [Mass fraction] 98 % Julianne Donnelly LPN [facility]; [facility] Work Phone: 11-16-2012 14:21-0400 Weight 82.67 kg Leatha Morrison [facility] Work Phone: 09-21-2012 13:45-0400 BMI (Body Mass Index) 30.97 kg/m2 Julianne Donnelly LPN [facility] Work Phone: 09-21-2012 13:45-0400 Body Temperature 98 [degF] Julianne Donnelly LPN [facility] Work Phone: Comment on above: Method: Oral 09-21-2012 13:45-0400 Body weight 81.85 kg Julianne Donnelly LPN [facility] Work Phone: 09-21-2012 13:45-0400 BP Diastolic 102 mm[Hg] Julianne Donnelly LPN [facility] Work Phone: Comment on above: Patient Position: Sitting; Cuff Location : Left Arm; Cuff Size: Standard 09-21-2012 13:45-0400 BP Systolic 162 mm[Hg] Julianne Donnelly LPN [facility] Work Phone: Comment on above: Patient Position: Sitting; Cuff Location : Left Arm; Cuff Size: Standard 09-21-2012 13:45-0400 BSA (Body Surface Area) 1.87 m2 Julianne Donnelly LPN [facility] Work Phone: 09-21-2012 13:45-0400 Height 162.56 cm Julianne Donnelly LPN [facility] Work Phone: 09-21-2012 13:45-0400 Pulse (Heart Rate) 94 /min Julianne Donnelly LPN [facility] Work Phone: Comment on above: Pattern: Regular 09-21-2012 13:45-0400 Pulse Oximetry 97 % Leatha Morrison [facility] Work Phone: Comment on above: Room air 09-21-2012 13:45-0400 Respiratory Rate 15 /min Julianne Donnelly LPN [facility] Work Phone: 09-21-2012 13:45-0400 SaO2% (BldA) [Mass fraction] 97 % Julianne Donnelly LPN [facility]; [facility] Work Phone: 09-21-2012 13:45-0400 Weight 81.85 kg Leatha Morrison [facility] Work Phone: 07-09-2012 15:47-0400 BMI (Body Mass Index) 33.4 kg/m2 Mer Solorio RN [facility] Work Phone: 07-09-2012 15:47-0400 Body Temperature 98 [degF] Mer Solorio RN [facility] Work Phone: Comment on above: Method: Temporal 07-09-2012 15:47-0400 Body weight 88.27 kg Mer Solorio RN [facility] Work Phone: 07-09-2012 15:47-0400 BP Diastolic 76 mm[Hg] Mer Soloiro RN [facility] Work Phone: Comment [...] 07-09-2012 15:47-0400 Pulse Oximetry 97 % Leatha Morrison [facility] Work Phone: Comment on above: Room air 07-09-2012 15:47-0400 Respiratory Rate 16 /min Mer Solorio RN [facility] Work Phone: Comment on above: Pattern: Unlabored 07-09-2012 15:47-0400 SaO2% (BldA) [Mass fraction] 97 % Mer Solorio RN [facility]; [facility] Work Phone: 07-09-2012 15:47-0400 Weight 88.27 kg Leatha Morrison [facility] Work Phone: 05-31-2012 08:51-0400 [...] 05-18-2012 08:42-0400 Weight 88.27 kg Leatha Morrison [facility] Work Phone: 05-08-2012 14:22-0400 BMI (Body Mass Index) 33.4 kg/m2 Julianne Donnelly LPN [facility] Work Phone: 05-08-2012 14:22-0400 Body Temperature 98.1 [degF] Julianne Donnelly LPN [facility] [...] BP Systolic 140 mm[Hg] Julianne Donnelly LPN [facility] Work Phone: Comment on above: Patient Position: Sitting; Cuff Location : Left Arm; Cuff Size: Standard 05-08-2012 14:22-0400 BSA (Body Surface Area) 1.93 m2 Julianne Donnelly FAVIAN [facility] Work Phone: 05-08-2012 14:22-0400 Height 162.56 cm Julianne Donnelly FAVIAN [facility] Work Phone: 05-08-2012 14:22-0400 Pulse (Heart Rate) 84 /min Julianne Donnelly LPN [facility] Work Phone: Comment on above: Pattern: Regular 05-08-2012 14:22-0400 Pulse Oximetry 98 % Leatha Morrison [facility] Work Phone: Comment on above: Room air 05-08-2012 14:22-0400 Respiratory Rate 17 /min Julianne Donnelly FAVIAN [facility] Work Phone: 05-08-2012 14:22-0400 SaO2% (BldA) [Mass fraction] 98 % Julianne Donnelly LPN [facility]; [facility] Work Phone: 05-08-2012 14:22-0400 Weight 88.27 kg Leatha Morrison [facility] Work Phone: 04-03-2012 15:57-0500 BMI (Body Mass Index) 33.4 kg/m2 Mer Solorio RN [facility] Work Phone: 04-03-2012 15:57-0500 Body Temperature 98.2 [degF] Mer Solorio RN [facility] Work Phone: Comment on above: Method: Oral 04-03-2012 15:57-0500 Body weight 88.27 kg Mer Solorio RN [facility] Work Phone: 04-03-2012 15:57-0500 BP Diastolic 78 mm[Hg] Mer Solorio RN [facility] Work Phone: Comment on above: Patient Position: Sitting; Cuff Location : Left Arm; Cuff Size: Standard 04-03-2012 15:57-0500 BP Systolic 156 mm[Hg] Mer Solorio RN [facility] [...] 04-03-2012 15:57-0500 Weight 88.27 kg Leatha Morrison [facility] Work Phone: 11-01-2011 15:42-0400 BMI (Body Mass Index) 33.4 kg/m2 Mer Solorio RN [facility] Work Phone: 11-01-2011 15:42-0400 Body Temperature 98.4 [degF] Mer Solorio RN [facility] Work Phone: Comment on above: Method: Oral 11-01-2011 15:42-0400 Body weight 88.27 kg Mer Solorio RN [facility] Work Phone: 11-01-2011 15:42-0400 BP Diastolic 72 mm[Hg] Mer Solorio RN [facility] Work Phone: Comment on above: Patient Position: Sitting; Cuff Location : Left Arm; Cuff Size: Standard 11-01-2011 15:42-0400 BP Systolic 124 mm[Hg] Mer Solorio RN [facility] Work Phone: Comment on above: Patient Position: Sitting; Cuff Location : Left Arm; Cuff Size: Standard 11-01-2011 15:42-0400 BSA (Body Surface Area) 1.93 m2 Mer Solorio RN [facility] Work Phone: 11-01-2011 15:42-0400 Height [...] BMI (Body Mass Index) 33.81 kg/m2 Julianne Andrzej BALLESTEROS [facility] Work Phone: 10-04-2011 11:13-0400 [...] Surface Area) 1.94 m2 Julianne Donnelly LPN [facility] Work Phone: 10-04-2011 11:13-0400 Height 162.56 cm Julianne Donnelly LPN [facility] Work Phone: 10-04-2011 11:13-0400 [...] BMI (Body Mass Index) 33.81 kg/m2 Claudia Waldropti [employer] [facility] Work Phone: 09-07-2011 14:54-0400 Body weight 89.36 kg Claudia Jules [employer] [facility] Work Phone: 09-07-2011 14:54-0400 BSA (Body Surface Area) 1.94 m2 Claudia Waldropti [employer] [facility] Work Phone: 09-07-2011 14:54-0400 Height 162.56 cm Claudia Waldropti [employer] [facility] Work Phone: 09-07-2011 14:54-0400 Pulse (Heart Rate) 78 /min Claudia Martinzti [employer] [facility] Work Phone: Comment on above: Pattern: Regular 09-07-2011 14:54-0400 Respiratory Rate 18 /min Claudia Martinzti [employer] [facility] Work Phone: Comment on above: Pattern: Unlabored 09-07-2011 14:54-0400 Weight 89.36 kg Leatha Morrison [facility] Work Phone: 09-05-2011 14:23-0400 BMI (Body Mass Index) 33.81 kg/m2 Julianne Donnelly LPN [facility] Work Phone: 09-05-2011 14:23-0400 Body Temperature 97.8 [degF] Julianne Donnelly LPN [facility] Work Phone: Comment on above: Method: Oral 09-05-2011 14:23-0400 Body weight 89.36 kg Julianne Donnelly LPN [facility] Work Phone: 09-05-2011 14:23-0400 BP Diastolic 74 mm[Hg] Julianne Donnelly LPN [facility] Work Phone: Comment on above: Patient Position: Sitting; Cuff Location : Left Arm; Cuff Size: Standard 09-05-2011 14:23-0400 BP Systolic 132 mm[Hg] Julianne Donnelly LPN [facility] Work Phone: Comment on above: Patient Position: Sitting; Cuff Location : Left Arm; Cuff Size: Standard 09-05-2011 14:23-0400 BSA (Body Surface Area) 1.94 m2 Julianne Donnelly LPN [facility] Work Phone: 09-05-2011 14:230400 Height 162.56 cm Julianne Donnelly LPN [facility] Work Phone: 09-05-2011 14:23-0400 Pulse (Heart Rate) 102 /min Julianne Donnelly LPN [facility] Work Phone: Comment on above: Pattern: Regular 09-05-2011 14:23-0400 Pulse Oximetry 97 % Leatha Morrison [facility] Work Phone: Comment on above: Room air 09-05-2011 14:23-0400 Respiratory Rate 18 /min Julianne Donnelly LPN [facility] Work Phone: 09-05-2011 14:23-0400 SaO2% (BldA) [Mass fraction] 97 % Julianne Donnelly LPN [facility]; [facility] Work Phone: 09-05-2011 14:23-0400 Weight 89.36 kg Leatha Morrison [facility] Work Phone: 07-28-2011 08:24-0400 BMI (Body Mass Index) 33.81 kg/m2 Jodi Bourne RN [facility] Work Phone: 07-28-2011 08:24-0400 Body Temperature 97.9 [degF] Jodi Bourne RN [facility] Work Phone: Comment on above: Method: Oral 07-28-2011 08:24-0400 Body weight 89.36 kg Jodi Bourne RN [facility] Work Phone: 07-28-2011 08:24-0400 BP Diastolic 82 mm[Hg] Jodi Bourne RN [facility] Work Phone: Comment on above: Patient Position: Sitting; Cuff Location : Left Arm; Cuff Size: Large 07-28-2011 08:24-0400 BP Systolic 142 mm[Hg] Jodi Bourne RN [facility] Work Phone: Comment [...] 07-28-2011 08:24-0400 Weight 89.36 kg Leatha Morrison [facility] Work Phone: 07-20-2011 11:25-0400 BMI [...] 11:25-0400 BP Systolic 138 mm[Hg] Julianne Donnelly LPN [facility] Work Phone: Comment on above: Patient Position: Sitting; Cuff Location : Left Arm; Cuff Size: Standard 07-20-2011 11:25-0400 BSA (Body Surface Area) 1.95 m2 Julianne Donnelly LPN [facility] Work Phone: 07-20-2011 11:25-0400 Height 162.56 cm Julianne Donnelly LPN [facility] Work Phone: 07-20-2011 11:25-0400 Pulse (Heart Rate) 92 /min Julianne Donnelly LPN [facility] Work Phone: Comment on above: Pattern: Regular 07-20-2011 11:25-0400 Pulse Oximetry 96 % Leatha Morrison [facility] Work Phone: Comment on above: Room air 07-20-2011 11:25-0400 Respiratory Rate 18 /min Julianne Donnelly LPN [facility] Work Phone: 07-20-2011 11:25-0400 SaO2% (BldA) [Mass fraction] 96 % Julianne Donnelly LPN [facility]; [facility] Work Phone: 07-20-2011 11:25-0400 Weight 89.81 kg Leatha Morrison [facility] Work Phone: 07-14-2011 07:43-0400 BMI (Body Mass Index) 33.99 kg/m2 RACHEL Bartlett LPN [facility] Work Phone: 07-14-2011 07:43-0400 Body Temperature 98.4 [degF] RACHEL Bartlett LPN [facility] Work Phone: Comment on above: Method: Oral 07-14-2011 07:43-0400 Body weight 89.81 kg RACHEL Bartlett LPN [facility] Work Phone: 07-14-2011 07:43-0400 BP Diastolic 80 mm[Hg] RACHEL Bartlett LPN [facility] Work Phone: Comment on above: Patient Position: Sitting; Cuff Location : Left Arm; Cuff Size: Standard 07-14-2011 07:43-0400 BP Systolic 126 mm[Hg] RACHEL Bartlett LPN [facility] Work Phone: Comment on above: Patient Position: Sitting; Cuff Location : Left Arm; Cuff Size: Standard 07-14-2011 07:43-0400 BSA (Body Surface Area) 1.95 m2 RACHEL Bartlett LPN [facility] Work Phone: 07-14-2011 07:43-0400 Height 162.56 cm RACHEL Bartlett LPN [facility] Work Phone: 07-14-2011 07:43-0400 Pulse (Heart Rate) 76 /min RACHEL Bartlett LPN [facility] Work Phone: Comment on above: Pattern: Regular 07-14-2011 07:43-0400 Respiratory Rate 18 /min RACHEL Bartlett LPN [facility] Work Phone: Comment on above: Pattern: Unlabored 07-14-2011 07:43-0400 Weight 89.81 kg Leatha Morrison [facility] Work Phone: 07-04-2011 12:56-0400 BMI (Body Mass Index) 33.99 kg/m2 RACHEL Bartlett LPN [facility] Work Phone: 07-04-2011 12:56-0400 Body Temperature 97.6 [degF] RACHEL Bartlett LPN [facility] Work Phone: Comment on above: Method: Oral 07-04-2011 12:56-0400 Body weight 89.81 kg RACHEL Bartlett LPN [facility] Work Phone: 07-04-2011 12:56-0400 BP Diastolic 84 mm[Hg] RACHEL Bartlett LPN [facility] Work Phone: Comment on above: Patient Position: Sitting; Cuff Location : Left Arm; Cuff Size: Standard 07-04-2011 12:56-0400 BP Systolic 132 mm[Hg] RACHEL Bartlett LPN [facility] Work Phone: Comment on above: Patient Position: Sitting; Cuff Location : Left Arm; Cuff Size: Standard 07-04-2011 12:56-0400 BSA (Body Surface Area) 1.95 m2 RACHEL Bartlett LPN [facility] Work Phone: 07-04-2011 12:56-0400 Height 162.56 cm RACHEL Bartlett LPN [facility] Work Phone: 07-04-2011 12:56-0400 Pulse (Heart Rate) 74 /min RACHEL Bartlett LPN [facility] Work Phone: Comment on above: Pattern: Regular 07-04-2011 12:56-0400 Respiratory Rate 18 /min RACHEL Bartlett LPN [facility] Work Phone: Comment on above: Pattern: Unlabored 07-04-2011 12:56-0400 Weight 89.81 kg Leatha Morrison [facility] Work Phone: 07-01-2011 07:53-0400 BMI (Body Mass Index) 33.99 kg/m2 RACHEL Bartlett LPN [facility] Work Phone: 07-01-2011 07:53-0400 Body Temperature 98 [degF] RACHEL Bartlett LPN [facility] Work Phone: Comment on above: Method: Oral 07-01-2011 07:53-0400 Body weight 89.81 kg RACHEL Bartlett LPN [facility] Work Phone: 07-01-2011 07:53-0400 BP Diastolic 84 mm[Hg] RACHEL Bartlett LPN [facility] Work Phone: Comment on above: Patient Position: Sitting; Cuff Location : Left Arm; Cuff Size: Standard 07-01-2011 07:53-0400 BP Systolic 128 mm[Hg] RACHEL Bartlett LPN [facility] Work Phone: Comment on above: Patient Position: Sitting; Cuff Location : Left Arm; Cuff Size: Standard 07-01-2011 07:53-0400 BSA (Body Surface Area) 1.95 m2 RACHEL Bartlett LPN [facility] Work Phone: 07-01-2011 07:53-0400 Height 162.56 cm RACHEL Bartlett LPN [facility] Work Phone: 07-01-2011 07:53-0400 Pulse (Heart Rate) 74 /min RACHEL Bartlett LPN [facility] Work Phone: Comment on above: Pattern: Regular 07-01-2011 07:53-0400 Respiratory Rate 18 /min RACHEL Bartlett LPN [facility] Work Phone: Comment on above: Pattern: Unlabored 07-01-2011 07:53-0400 Weight 89.81 kg Leatha Morrison [facility] Work Phone: 06-30-2011 08:14-0400 BMI (Body Mass Index) 33.99 kg/m2 RACHEL Bartlett LPN [facility] Work Phone: 06-30-2011 08:14-0400 Body Temperature 98 [degF] RACHEL Bartlett [facility] Work Phone: Comment on above: Method: Oral 06-30-2011 08:14-0400 Body weight 89.81 kg RACHEL Bartlett [employer] [facility] Work Phone: 06-30-2011 08:14-0400 BP Diastolic 80 mm[Hg] RACHEL Bartlett [employer] [facility] Work Phone: Comment on above: Patient Position: Sitting; Cuff Location : Left Arm; Cuff Size: Standard 06-30-2011 08:14-0400 BP Systolic 140 mm[Hg] RACHEL Bartlett [employer] [facility] Work Phone: Comment on above: Patient Position: Sitting; Cuff Location : Left Arm; Cuff Size: Standard 06-30-2011 08:14-0400 BSA (Body Surface Area) 1.95 m2 RACHEL Bartlett LPN [facility] Work Phone: 06-30-2011 08:14-0400 Height 162.56 cm RACHEL Bartlett LPN [facility] Work Phone: 06-30-2011 08:14-0400 Pulse (Heart Rate) 70 /min RACHEL Bartlett LPN [facility] Work Phone: Comment on above: Pattern: Regular 06-30-2011 08:14-0400 Respiratory Rate 18 /min RACHEL Bartlett LPN [facility] Work Phone: Comment on above: Pattern: Unlabored 06-30-2011 08:14-0400 Weight 89.81 kg Leatha Morrison [facility] Work Phone: 06-29-2011 08:39-0400 BMI (Body Mass Index) 33.99 kg/m2 Julianne Donnelly [employer] [facility] Work Phone: 06-29-2011 08:39-0400 Body Temperature 98.2 [degF] Julianne Donnelly [employer] [facility] Work Phone: Comment on above: Method: Oral 06-29-2011 08:39-0400 Body weight 89.81 kg Julianne Donnelly [employer] [facility] Work Phone: 06-29-2011 08:39-0400 BP Diastolic 86 mm[Hg] Julianne Donnelly [employer] [facility] Work Phone: Comment on above: Patient Position: Sitting; Cuff Location : Left Arm; Cuff Size: Standard 06-29-2011 08:39-0400 BP Systolic 130 mm[Hg] Julianne Donnelly [employer] [facility] Work Phone: Comment on above: Patient Position: Sitting; Cuff Location : Left Arm; Cuff Size: Standard 06-29-2011 08:39-0400 BSA (Body Surface Area) 1.95 m2 Julianne Donnelly [employer] [facility] Work Phone: 06-29-2011 08:39-0400 Height 162.56 cm Julianne Donnelly LPN [facility] Work Phone: 06-29-2011 08:39-0400 Pulse (Heart Rate) 86 /min Julianne Donnelly LPN [facility] Work Phone: Comment on above: Pattern: Regular 06-29-2011 08:39-0400 Pulse Oximetry 96 % Leatha Morrison [facility] Work Phone: Comment on above: Room air 06-29-2011 08:39-0400 Respiratory Rate 17 /min Julianne Donnelly LPN [facility] Work Phone: 06-29-2011 08:39-0400 SaO2% (BldA) [Mass fraction] 96 % Julianne Donnelly LPN [facility]; [facility] Work Phone: 06-29-2011 08:39-0400 Weight 89.81 kg Leatha Morrison [facility] Work Phone: 06-28-2011 08:25-0400 BMI (Body Mass Index) 33.99 kg/m2 RACHEL Bartlett FAVIAN [facility] Work Phone: 06-28-2011 08:25-0400 Body Temperature 97.3 [degF] RACHEL Bartlett FAVIAN [facility] Work Phone: Comment on above: Method: Oral 06-28-2011 08:25-0400 Body weight 89.81 kg RACHEL Bartlett FAVIAN [facility] Work Phone: 06-28-2011 08:25-0400 BP Diastolic 84 mm[Hg] RACHEL Bartlett FAVIAN [facility] Work Phone: Comment on above: Patient Position: Sitting; Cuff Location : Left Arm; Cuff Size: Standard 06-28-2011 08:25-0400 BP Systolic 128 mm[Hg] RACHEL Bartlett FAVIAN [facility] Work Phone: Comment on above: Patient Position: Sitting; Cuff Location : Left Arm; Cuff Size: Standard 06-28-2011 08:25-0400 BSA (Body Surface Area) 1.95 m2 RACHEL Bartlett FAVIAN [facility] Work Phone: 06-28-2011 08:25-0400 Height 162.56 cm RACHEL Bartlett LPN [facility] Work Phone: 06-28-2011 08:25-0400 Pulse (Heart Rate) 76 /min RACHEL Bartlett LPN [facility] Work Phone: Comment on above: Pattern: Regular 06-28-2011 08:25-0400 Respiratory Rate 18 /min RACHEL Bartlett LPN [facility] Work Phone: Comment on above: Pattern: Unlabored 06-28-2011 08:25-0400 Weight 89.81 kg Leatha Morrison [facility] Work Phone: 06-27-2011 09:46-0400 BMI (Body Mass Index) 33.99 kg/m2 RACHEL Bartlett LPN [facility] Work Phone: 06-27-2011 09:46-0400 Body Temperature 98.1 [degF] RACHEL Bartlett LPN [facility] Work Phone: Comment on above: Method: Oral 06-27-2011 09:46-0400 Body weight 89.81 kg RACHEL Bartlett LPN [facility] Work Phone: 06-27-2011 09:46-0400 BP Diastolic 86 mm[Hg] RACHEL Bartlett LPN [facility] Work Phone: Comment on above: Patient Position: Sitting; Cuff Location : Left Arm; Cuff Size: Standard 06-27-2011 09:46-0400 BP Systolic 130 mm[Hg] RACHEL Bartlett LPN [facility] Work Phone: Comment on above: Patient Position: Sitting; Cuff Location : Left Arm; Cuff Size: Standard 06-27-2011 09:46-0400 BSA (Body Surface Area) 1.95 m2 RACHEL Bartlett LPN [facility] Work Phone: 06-27-2011 09:46-0400 Height 162.56 cm RACHEL Bartlett LPN [facility] Work Phone: 06-27-2011 09:46-0400 Pulse (Heart Rate) 80 /min RACHEL Bartlett LPN [facility] Work Phone: Comment on above: Pattern: Regular 06-27-2011 09:46-0400 Respiratory Rate 18 /min RACHEL Bartlett LPN [facility] Work Phone: Comment on above: Pattern: Unlabored 06-27-2011 09:46-0400 Weight 89.81 kg Leatha Morrison [facility] Work Phone: 06-24-2011 11:27-0400 BMI (Body Mass Index) 33.99 kg/m2 Julianne Donnelly LPN [facility] Work Phone: 06-24-2011 11:27-0400 Body Temperature 98.1 [degF] Julianne Donnelly LPN [facility] Work Phone: Comment on above: Method: Oral 06-24-2011 11:27-0400 Body weight 89.81 kg Julianne Donnelly LPN [facility] Work Phone: 06-24-2011 11:27-0400 BP Diastolic 86 mm[Hg] Julianne Donnelly LPN [facility] Work Phone: Comment on above: Patient Position: Sitting; Cuff Location : Left Arm; Cuff Size: Standard 06-24-2011 11:27-0400 BP Systolic 128 mm[Hg] Julianne Donnelly LPN [facility] Work Phone: Comment on above: Patient Position: Sitting; Cuff Location : Left Arm; Cuff Size: Standard 06-24-2011 11:27-0400 BSA (Body Surface Area) 1.95 m2 Julianne Donnelly LPN [facility] Work Phone: 06-24-2011 11:27-0400 Height 162.56 cm Julianne Donnelly LPN [facility] Work Phone: 06-24-2011 11:27-0400 Pulse (Heart Rate) 94 /min Julianne Donnelly LPN [facility] Work Phone: Comment on above: Pattern: Regular 06-24-2011 11:27-0400 Pulse Oximetry 97 % Leatha Morrison [facility] Work Phone: Comment on above: Room air 06-24-2011 11:27-0400 Respiratory Rate 17 /min Julianne Donnelly LPN [facility] Work Phone: 06-24-2011 11:27-0400 SaO2% (BldA) [Mass fraction] 97 % Julianne Donnelly LPN [facility]; [facility] Work Phone: 06-24-2011 11:27-0400 Weight 89.81 kg Leatha Morrison [facility] Work Phone: 06-21-2011 09:25-0400 BMI (Body Mass Index) 33.99 kg/m2 Julianne Donnelly LPN [facility] Work Phone: 06-21-2011 09:25-0400 Body Temperature 98.6 [degF] Julianne Donnelly LPN [facility] Work Phone: Comment on above: Method: Oral 06-21-2011 09:250400 Body weight 89.81 kg Julianne Donnelly LPN [facility] Work Phone: 06-21-2011 09:25-0400 BP Diastolic 78 mm[Hg] Julianne Donnelly LPN [facility] Work Phone: Comment on above: Patient Position: Sitting; Cuff Location : Left Arm; Cuff Size: Standard 06-21-2011 09:25-0400 BP Systolic 128 mm[Hg] Julianne Donnelly LPN [facility] Work Phone: Comment on above: Patient Position: Sitting; Cuff Location : Left Arm; Cuff Size: Standard 06-21-2011 09:25-0400 BSA (Body Surface Area) 1.95 m2 Julianne Donnelly LPN [facility] Work Phone: 06-21-2011 09:25-0400 Height 162.56 cm Julianne Donnelly LPN [facility] Work Phone: 06-21-2011 09:25-0400 Pulse (Heart Rate) 92 /min Julianne Donnelly LPN [facility] Work Phone: Comment on above: Pattern: Regular 06-21-2011 09:25-0400 Pulse Oximetry 96 % Leatha Morrison [facility] Work Phone: Comment on above: Room air 06-21-2011 09:25-0400 Respiratory Rate 18 /min Julianne Donnelly LPN [facility] Work Phone: 06-21-2011 09:25-0400 SaO2% (BldA) [Mass fraction] 96 % Julianne Donnelly LPN [facility]; [facility] Work Phone: 06-21-2011 09:25-0400 Weight 89.81 kg Leatha Morrison [facility] Work Phone: 06-14-2011 08:44-0400 BMI (Body Mass Index) 33.99 kg/m2 Mer Solorio RN [facility] Work Phone: 06-14-2011 08:44-0400 Body [...] 08:44-0400 Pulse (Heart Rate) 68 /min Mer L Long RN [facility] Work Phone: Comment on above: Pattern: Regular 06-14-2011 08:44-0400 Respiratory Rate 18 /min Mer Solorio RN [facility] Work Phone: Comment on above: Pattern: Unlabored 06-14-2011 08:44-0400 Weight 89.81 kg Leatha Morrison [facility] Work Phone: 02-25-2011 14:19-0500 BMI (Body Mass Index) 33.99 kg/m2 Julianne Donnelly FAVIAN [facility] Work Phone: 02-25-2011 14:19-0500 Body Temperature 98.2 [degF] Julianne Donnelly [employer] [facility] Work Phone: Comment on above: Method: Oral 02-25-2011 14:19-0500 Body weight 89.81 kg Julianne Donnelly [employer] [facility] Work Phone: 02-25-2011 14:19-0500 BP Diastolic 80 mm[Hg] Julianne Donnelly [employer] [facility] Work Phone: Comment on above: Patient Position: Sitting; Cuff Location : Left Arm; Cuff Size: Standard 02-25-2011 14:19-0500 BP Systolic 138 mm[Hg] Julianne Donnelly LPN [facility] Work Phone: Comment on above: Patient Position: Sitting; Cuff Location : Left Arm; Cuff Size: Standard 02-25-2011 14:19-0500 BSA (Body Surface Area) 1.95 m2 Julianne Donnelly FAVIAN [facility] Work Phone: 02-25-2011 14:19-0500 Height 162.56 cm Julianne Donnelly [employer] [facility] Work Phone: 02-25-2011 14:19-0500 Pulse (Heart Rate) 84 /min Julianne Donnelly LPN [facility] Work Phone: Comment on above: Pattern: Regular 02-25-2011 14:19-0500 Respiratory Rate 17 /min Julianne Donnelly [employer] [facility] Work Phone: Comment on above: Pattern: Unlabored 02-25-2011 14:19-0500 Weight 89.81 kg Leatha Morrison [facility] Work Phone: 02-07-2011 08:27-0500 BMI (Body Mass Index) 33.99 kg/m2 Julianne Donnelly [facility] Work Phone: Comment on above: hasn't taken meds yet today 02-07-2011 08:27-0500 Body Temperature 97.7 [degF] Julianne Donnelly [employer] [facility] Work Phone: Comment on above: Method: Oral hasn't taken meds ye t today 02-07-2011 08:27-0500 Body weight 89.81 kg Julianne Donnelly [employer] [facility] Work Phone: Comment on above: hasn't taken meds yet today 02-07-2011 08:27-0500 BP Diastolic 90 mm[Hg] Julianne Donnelly [employer] [facility] Work Phone: Comment on above: Patient Position: Sitting; Cuff Location : Left Arm; Cuff Size: Standard hasn't taken meds ye t today 02-07-2011 08:27-0500 BP Systolic 144 mm[Hg] Julianne Donnelly LPN [facility] Work Phone: Comment on above: Patient Position: Sitting; Cuff Location : Left Arm; Cuff Size: Standard hasn't taken meds ye t today 02-07-2011 08:27-0500 BSA (Body Surface Area) 1.95 m2 Julianne Donnelly [employer] [facility] Work Phone: Comment on above: hasn't taken meds yet today 02-07-2011 08:27-0500 Height 162.56 cm Julianne Donnelly [employer] [facility] Work Phone: Comment on above: hasn't taken meds yet today 02-07-2011 08:27-0500 Pulse (Heart Rate) 82 /min Julianne Donnelly [employer] [facility] Work Phone: Comment on above: Pattern: Regular hasn't taken meds ye t today 02-07-2011 08:27-0500 Pulse Oximetry 97 % Leatha Morrison [facility] Work Phone: Comment on above: Room air hasn't taken meds ye t today 02-07-2011 08:27-0500 Respiratory Rate 16 /min Julianne Andrzej BALLESTEROS [facility] Work Phone: Comment on above: Pattern: Unlabored hasn't taken meds ye t today 02-07-2011 08:27-0500 SaO2% (BldA) [Mass fraction] 97 % Julianne Andrzej FAVIAN [facility]; [facility] Work Phone: 02-07-2011 08:27-0500 Weight 89.81 kg Leatha Morrison [facility] Work Phone: Comment on above: hasn't taken meds yet today 01-11-2011 08:55-0500 BMI (Body Mass Index) 33.99 kg/m2 RACHEL Bartlett LPN [facility] Work Phone: 01-11-2011 08:55-0500 Body Temperature 97.9 [degF] RACHEL Bartlett [employer] [facility] Work Phone: Comment on above: Method: Oral 01-11-2011 08:55-0500 Body weight 89.81 kg RACHEL Bartlett LPN [facility] Work Phone: 01-11-2011 08:55-0500 BP Diastolic 80 mm[Hg] RACHEL Bartlett LPN [facility] Work Phone: Comment on above: Patient Position: Sitting; Cuff Location : Left Arm; Cuff Size: Standard 01-11-2011 08:55-0500 BP Systolic 120 mm[Hg] RACHEL Bartlett LPN [facility] Work Phone: Comment on above: Patient Position: Sitting; Cuff Location : Left Arm; Cuff Size: Standard 01-11-2011 08:55-0500 BSA (Body Surface Area) 1.95 m2 RACHEL Bartlett LPN [facility] Work Phone: 01-11-2011 08:55-0500 Height 162.56 cm RACHEL Bartlett LPN [facility] Work Phone: 01-11-2011 08:55-0500 Pulse (Heart Rate) 76 /min RACHEL Bartlett LPN [facility] Work Phone: Comment on above: Pattern: Regular 01-11-2011 08:55-0500 Respiratory Rate 18 /min RACHEL Bartlett LPN [facility] Work Phone: Comment on above: Pattern: Unlabored 01-11-2011 08:55-0500 Weight 89.81 kg Leatha Morrison [facility] Work Phone: 10-07-2010 08:36-0400 BMI (Body Mass Index) 34.52 kg/m2 Julianne Donnelly LPN [facility] Work Phone: 10-07-2010 08:36-0400 Body Temperature 97.8 [degF] Julianne Donnelly LPN [facility] Work Phone: Comment on above: Method: Oral 10-07-2010 08:36-0400 Body weight 91.23 kg Julianne Donnelly LPN [facility] Work Phone: 10-07-2010 08:36-0400 BP Diastolic 86 mm[Hg] Julianne Donnelly LPN [facility] Work Phone: Comment on above: Patient Position: Sitting; Cuff Location : Left Arm; Cuff Size: Standard 10-07-2010 08:36-0400 BP Systolic 138 mm[Hg] Julianne Donnelly LPN [facility] Work Phone: Comment on above: Patient Position: Sitting; Cuff Location : Left Arm; Cuff Size: Standard 10-07-2010 08:36-0400 BSA (Body Surface Area) 1.96 m2 Julianne Donnelly LPN [facility] Work Phone: 10-07-2010 08:36-0400 Height 162.56 cm Julianne Donnelly LPN [facility] Work Phone: 10-07-2010 08:36-0400 Pulse (Heart Rate) 72 /min Julianne Donnelly LPN [facility] Work Phone: Comment on above: Pattern: Regular 10-07-2010 08:36-0400 Respiratory Rate 16 /min Julianne Donnelly LPN [facility] Work Phone: Comment on above: Pattern: Unlabored 10-07-2010 08:36-0400 Weight 91.23 kg Leatha Morrison [facility] Work Phone: 06-08-2010 09:08-0400 Body [...] 09:08-0400 Pulse Oximetry 98 % Leatha Morrison [facility] Work Phone: Comment on above: Room air 06-08-2010 09:08-0400 Respiratory Rate 17 /min Julianne Donnelly LPN [facility] Work Phone: Comment on above: Pattern: Unlabored 06-08-2010 09:08-0400 SaO2% (BldA) [Mass fraction] 98 % Julianne Donnelly [employer] [facility]; [facility] Work Phone: 06-08-2010 09:08-0400 Weight 92.08 kg Leatha Morrison [facility] Work Phone: 01-21-2010 09:09-0500 Body [...] 01-21-2010 09:09-0500 Weight 92.08 kg Leatha Morrison [facility] Work Phone: 12-31-2009 07:50-0500 Body [...] 12-31-2009 07:50-0500 Weight 92.08 kg Leatha Morrison [facility] Work Phone: 07-21-2009 10:51-0400 BP Diastolic 84 mm[Hg] RACHEL Bartlett LPN [facility] Work Phone: Comment on above: Patient Position: Sitting; Cuff Location : Left Arm; Cuff Size: Large 07-21-2009 10:51-0400 BP Systolic 134 mm[Hg] RACHEL Bartlett LPN [facility] Work Phone: Comment on above: Patient Position: Sitting; Cuff Location : Left Arm; Cuff Size: Large 07-21-2009 10:51-0400 Pulse (Heart Rate) 78 /min RACHEL Bartlett LPN [facility] Work Phone: Comment on above: Pattern: Regular 07-21-2009 10:51-0400 Respiratory Rate 18 /min RACHEL Bartlett LPN [facility] Work Phone: Comment on above: Pattern: Unlabored 07-14-2009 10:04-0400 BP Diastolic 84 mm[Hg] RACHEL Bartlett LPN [facility] Work Phone: Comment on above: Patient Position: Sitting; Cuff Location : Left Arm; Cuff Size: Large 07-14-2009 10:04-0400 BP Systolic 140 mm[Hg] RACHEL Bartlett LPN [facility] Work Phone: Comment on above: Patient Position: Sitting; Cuff Location : Left Arm; Cuff Size: Large 07-14-2009 10:04-0400 Pulse (Heart Rate) 74 /min RACHEL Bartlett LPN [facility] Work Phone: Comment on above: Pattern: Regular 07-14-2009 10:04-0400 Respiratory Rate 18 /min RACHEL Bartlett FAVIAN [facility] Work Phone: Comment on above: Pattern: Unlabored 11-04-2008 08:55-0400 BMI (Body Mass Index) 35.2 kg/m2 Deedee Samuel [facility] Work Phone: 11-04-2008 08:55-0400 Body weight 93.02 kg Deedee Samuel [facility] Work Phone: 11-04-2008 08:55-0400 BP [...] (Body Surface Area) 1.98 m2 Deedee Samuel [facility] Work Phone: 11-04-2008 08:55-0400 Head Circumference 0 cm Leatha [facility] Work Phone: 11-04-2008 08:55-0400 Head Occipital-frontal circumference 0 cm Deedee Samuel [facility]; [facility] Work Phone: [...] 11-04-2008 08:55-0400 Weight 93.02 kg Leatha Morrison [facility] Work Phone: 10-29-2008 08:05-0400 Body Temperature 98.3 [degF] Jodi Mast RN [facility] Work Phone: Comment [...] 10-29-2008 08:05-0400 [facility] 0 [facility] Work Phone: 10-29-2008 08:05-0400 [...] 10-29-2008 08:05-0400 Weight 0 kg Leatha Morrison [facility] Work Phone: 07-10-2008 07:38-0400 Body [...] 07:38-0400 Head Circumference 0 cm Leatha Morrison [facility] Work Phone: 07-10-2008 07:38-0400 Head Occipital-frontal circumference 0 cm RACHEL Bartlett LPN [facility]; [facility] Work Phone: 07-10-2008 07:38-0400 Height 0 cm RACHEL Bartlett [employer] [facility] Work Phone: 07-10-2008 07:38-0400 Pulse (Heart Rate) 70 /min RACHEL Bartlett [employer] [facility] Work Phone: Comment on above: Pattern: Regular 07-10-2008 07:38-0400 Respiratory Rate 16 /min RACHEL Bartlett LPN [facility] Work Phone: Comment on above: Pattern: Unlabored 07-10-2008 07:38-0400 Weight 0 kg Leatha Morrison [facility] Work Phone: 05-12-2008 11:08-0400 Body [...] 05-12-2008 11:08-0400 BP Systolic 122 mm[Hg] Bonnie Moise RN [facility] [...] 05-12-2008 11:08-0400 Weight 90.98 kg Leatha Morrison [facility] Work Phone: 04-24-2008 10:43-0500 Body weight 0 kg RACHEL Bartlett LPN [facility] Work Phone: 04-24-2008 10:43-0500 BP Diastolic 84 mm[Hg] RACHEL Bartlett LPN [facility] Work Phone: Comment on above: Patient Position: Sitting; Cuff Location : Left Arm; Cuff Size: Large 04-24-2008 10:43-0500 BP Systolic 126 mm[Hg] RACHEL Bartlett LPN [facility] Work Phone: Comment on above: Patient Position: Sitting; Cuff Location : Left Arm; Cuff Size: Large 04-24-2008 10:43-0500 Head Circumference 0 cm Leatha Morrison [facility] Work Phone: 04-24-2008 10:43-0500 Head Occipital-frontal circumference 0 cm RACHEL Bartlett LPN [facility]; [facility] Work Phone: 04-24-2008 10:43-0500 Height 0 cm RACHEL Bartlett LPN [facility] Work Phone: 04-24-2008 10:43-0500 Pulse (Heart Rate) 76 /min RACHEL Bartlett LPN [facility] Work Phone: Comment on above: Pattern: Regular 04-24-2008 10:43-0500 Respiratory Rate 16 /min RACHEL Bartlett LPN [facility] Work Phone: Comment on above: Pattern: Unlabored 04-24-2008 10:43-0500 Weight 0 kg Leatha Morrison [facility] Work Phone: 12-10-2007 11:13-0400 Body Temperature 98.3 [degF] Lizzy [facility] Work Phone: Comment on above: Method: Oral 12-10-2007 11:13-0400 Body weight 90.98 kg Lizzy [facility] Work Phone: 12-10-2007 11:13-0400 BP Diastolic 92 mm[Hg] Lizzy [facility] Work Phone: Comment on above: Patient Position: Sitting; Cuff Location : Left Arm; Cuff Size: Standard 12-10-2007 11:13-0400 BP Systolic 136 mm[Hg] Lizzy [facility] Work Phone: Comment on above: Patient Position: Sitting; Cuff Location : Left Arm; Cuff Size: Standard 12-10-2007 11:13-0400 Head Circumference 0 cm Leatha Morrison [facility] Work Phone: 12-10-2007 11:13-0400 Head Occipital-frontal circumference 0 cm Lizzy [facility]; [facility] Work Phone: 12-10-2007 11:13-0400 Height 0 cm Lizzy [facility] Work Phone: 12-10-2007 11:13-0400 Pulse (Heart Rate) 82 /min Lizzy [facility] Work Phone: Comment on above: Pattern: Regular 12-10-2007 11:13-0400 Respiratory Rate 18 /min Lizzy [facility] Work Phone: Comment on above: Pattern: Unlabored 12-10-2007 11:13-0400 Weight 90.98 kg Leatha Morrison [facility] Work Phone: 08-08-2007 07:02-0400 Body weight 94.09 kg Deedee [facility] Work Phone: 08-08-2007 07:02-0400 BP Diastolic 78 mm[Hg] [facility] Work Phone: Comment on above: Patient Position: Sitting; Cuff Location : Left Arm; Cuff Size: Standard 08-08-2007 07:02-0400 BP Systolic 114 mm[Hg] [facility] Work Phone: Comment on above: Patient Position: Sitting; Cuff Location : Left Arm; Cuff Size: Standard 08-08-2007 07:02-0400 Head Circumference 0 [facility] Work Phone: 08-08-2007 07:02-0400 Head Occipital-frontal circumference 0 cm Deedee [facility] Work Phone: 08-08-2007 07:02-0400 Height 0 cm Deedee [facility] Work Phone: 08-08-2007 07:02-0400 Pulse (Heart Rate) 80 /min [facility] Work Phone: Comment on above: Pattern: Regular 08-08-2007 07:02-0400 Respiratory Rate 16 /min Deedee [facility] Work Phone: Comment on above: Pattern: Unlabored 08-08-2007 07:02-0400 Weight 94.09 kg Leatha Morrison [facility] Work Phone: 05-01-2007 08:18-0400 Body Temperature 98.2 [degF] RACHEL Bartlett [facility] Work Phone: Comment on above: Method: Oral 05-01-2007 08:18-0400 Body weight 0 kg RACHELBERNADETTE Bartlett LPN [facility] Work Phone: 05-01-2007 08:18-0400 BP Diastolic 78 mm[Hg] RACHEL Bartlett [employer] [facility] Work Phone: Comment on above: Patient Position: Sitting; Cuff Location : Left Arm; Cuff Size: Standard 05-01-2007 08:18-0400 BP Systolic 122 mm[Hg] RACHEL Dhruv BALLESTEROS [facility] Work Phone: Comment on above: Patient Position: Sitting; Cuff Location : Left Arm; Cuff Size: Standard 05-01-2007 08:18-0400 Head Circumference 0 cm [facility] Work Phone: 05-01-2007 08:18-0400 Head Occipital-frontal circumference 0 cm RACHEL Bartlett LPN [facility]; [facility] Work Phone: 05-01-2007 08:18-0400 Height 0 cm RACHEL Bartlett LPN [facility] Work Phone: 05-01-2007 08:18-0400 Pulse (Heart Rate) 72 /min RACHEL Bartlett LPN [facility] Work Phone: Comment on above: Pattern: Regular 05-01-2007 08:18-0400 Respiratory Rate 18 /min RACHEL Bartlett LPN [facility] Work Phone: Comment on above: Pattern: Unlabored 05-01-2007 08:18-0400 Weight 0 kg [facility] Work Phone: 04-18-2007 08:13-0500 [...] Large 04-18-2007 08:13-0500 Head Circumference 0 cm [facility] Work Phone: 04-18-2007 08:13-0500 Head [...] 04-18-2007 08:13-0500 Weight 94.09 kg Leatha Morrison [facility] Work Phone: 01-23-2007 08:18-0500 Body Temperature 98.6 [degF] RACHEL Bartlett LPN [facility] Work Phone: Comment on above: Method: Oral 01-23-2007 08:18-0500 Body weight 0 kg RACHEL Bartlett LPN [facility] Work Phone: 01-23-2007 08:18-0500 BP Diastolic 80 mm[Hg] RACHEL Bartlett LPN [facility] Work Phone: Comment on above: Patient Position: Sitting; Cuff Location : Left Arm; Cuff Size: Standard 01-23-2007 08:18-0500 BP Systolic 124 mm[Hg] RACHEL Bartlett LPN [facility] Work Phone: Comment on above: Patient Position: Sitting; Cuff Location : Left Arm; Cuff Size: Standard 01-23-2007 08:18-0500 Head Circumference 0 cm Leatha Morrison [facility] Work Phone: 01-23-2007 08:18-0500 Head Occipital-frontal circumference 0 cm RACHEL Bartlett LPN [facility]; [facility] Work Phone: 01-23-2007 08:18-0500 Height 0 cm RACHEL Bartlett LPN [facility] Work Phone: 01-23-2007 08:18-0500 Pulse (Heart Rate) 72 /min RACHEL Bartlett LPN [facility] Work Phone: Comment on above: Pattern: Regular 01-23-2007 08:18-0500 Respiratory Rate 18 /min RACHEL Bartlett LPN [facility] Work Phone: Comment on above: Pattern: Unlabored 01-23-2007 08:18-0500 Weight 0 kg Leatha Morrison [facility] Work Phone: 12-21-2006 09:15-0400 Body [...] 09:15-0400 Head Circumference 0 cm Leatha Morrison [facility] Work Phone: 12-21-2006 09:15-0400 Head Occipital-frontal circumference 0 cm RACHEL Bartlett LPN [facility]; [facility] Work Phone: 12-21-2006 09:15-0400 Height 0 cm RACHEL Bartlett LPN [facility] Work Phone: 12-21-2006 09:15-0400 Pulse (Heart Rate) 74 /min RACHEL Bartlett LPN [facility] Work Phone: Comment on above: Pattern: Regular 12-21-2006 09:15-0400 Pulse Oximetry 97 % Leatha Morrison [facility] Work Phone: Comment on above: Room air 12-21-2006 09:15-0400 Respiratory Rate 20 /min RACHEL Bartlett LPN [facility] Work Phone: Comment on above: Pattern: Unlabored 12-21-2006 09:15-0400 SaO2% (BldA) [Mass fraction] 97 % RACHEL Bartlett LPN [facility]; [facility] Work Phone: 12-21-2006 09:15-0400 Weight 0 kg Leatha Morrison [facility] Work Phone: 09-05-2006 11:40-0400 Body [...] 11:40-0400 Head Circumference 0 cm Leatha Morrison [facility] Work Phone: 09-05-2006 11:40-0400 Head [...] 09-05-2006 11:40-0400 Weight 0 kg Leatha Morrison [facility] Work Phone: 10-27-2005 11:01-0400 Body weight 0 kg Leatha Morrison [facility] Work Phone: 10-27-2005 11:01-0400 BP Diastolic 82 mm[Hg] Leatha Morrison [facility] Work Phone: Comment on above: Patient Position: Sitting; Cuff Location : Left Arm; Cuff Size: Standard 10-27-2005 11:01-0400 BP Systolic 148 mm[Hg] Le[facility] Work Phone: Comment on above: Patient Position: Sitting; Cuff Location : Left Arm; Cuff Size: Standard 10-27-2005 11:01-0400 Head Circumference 0 cm Leatha Morrison [facility] Work Phone: 10-27-2005 11:01-0400 Head Occipital-frontal circumference 0 cm Leatha Morrison SUPERVISOR DOG LICENSE OFFICER Work Phone: [facility]; [facility] Work Phone: 10-27-2005 11:01-0400 Height 0 cm Leatha Morrison [facility] Work Phone: 10-27-2005 11:01-0400 Pulse (Heart Rate) 54 /min Leatha Morrison [facility] Work Phone: Comment on above: Pattern: Regular 10-27-2005 11:01-0400 Weight 0 kg Leatha Morrison [facility] Work Phone: Encounters Encounter Date Encounter Type Care Provider Facility Start: 11-04-2024 ambulatory Mayra Escobedo Facility :[facility] Start: 10-29-2024 End: 10-29-2024 Patient encounter procedure Delaney OLSEN -[facility] Work Phone: Start: 10-29-2024 End: 10-29-2024 ambulatory Mayra Escobedo NP-C Work Phone: -[facility] Start: 08-20-2024 End: 08-20-2024 ambulatory Mayra Escobedo NP-C Work Phone: -Laboratory Start: 08-20-2024 End: 08-20-2024 Patient encounter procedure Mayra Gregg MANAGER FURNITURE-C -Laboratory Work Phone: Start: 08-20-2024 End: 08-20-2024 ambulatory Mayra Escobedo Facility:[facility] Start: 07-02-2024 End: 07-02-2024 ambulatory Mayra Escobedo MANAGER FURNITURE-C Work Phone: [facility] Work Phone: Start: 07-02-2024 End: 07-02-2024 Patient encounter procedure Mayra Escobedo MANAGER FURNITURE-C -Laboratory Work Phone: Start: 07-02-2024 End: 07-02-2024 ambulatory Mayra Escobedo Facility:[facility] Start: 06-11-2024 End: 06-11-2024 Patient encounter procedure Mayra Escobedo MANAGER FURNITURE-C -Laboratory Work Phone: Start: 06-11-2024 End: 06-11-2024 ambulatory Mayra Gregg Facility:[facility] Start: 04-26-2024 End: 04-26-[address] Jose Miguel Eng MD -[facility] Work Phone: Start: 04-26-2024 End: 04-26-2024 ambulatory Mayra Escobedo Facility:[facility] Start: 04-02-2024 Non-patient / Non-visit Dr. Moreno gaviria [facility] Work Phone: Start: 04-02-2024 ambulatory Mayra Escobedo Facility :[facility] Start: 04-02-2024 Non-patient / Non-visit Dr. Emily Lopez MD -[facility] Start: 04-01-2024 End: 04-02-2024 ambulatory Chelsea Kaufman Facility:[facility] Start: 04-01-2024 End: 04-02-2024 Evaluation and management of inpatient Dr. Moreno Moody DO -[facility] Work Phone: Start: 03-14-2024 End: 03-14-[address] Chapo Yates MD -[facility] Work Phone: Start: 03-14-2024 End: 03-14-2024 ambulatory Mayra Gregg Facility:[facility] Start: 03-11-2024 End: 03-11-[address] Chapo Yates MD -[facility] Work Phone: Start: 03-11-2024 End: 03-11-2024 ambulatory Mayra Escobedo Facility:[facility] Start: 03-04-2024 End: 03-04-[address] Chapo Yates MD -[facility] Work Phone: Start: 03-04-2024 End: 03-04-2024 ambulatory Mayra Gregg Facility:[facility] Start: 02-26-2024 End: 02-26-2024 ambulatory Mayra Gregg Facility:[facility] Start: 02-15-2024 End: 02-15-2024 ambulatory Mayra Gregg Facility:[facility] Start: 02-10-2024 End: 02-10-2024 ambulatory Mayra Gregg Facility:[facility] Start: 02-08-2024 End: 02-08-2024 ambulatory Mayra Gregg Facility:[facility] Start: 01-17-2024 End: 01-17-2024 ambulatory Mayra Gregg Facility:[facility] Start: 12-25-2023 End: 12-25-2023 ambulatory Brennon Ramirez Facility:[facility] Start: 11-20-2023 ambulatory Mayra Gregg Facility :[facility] Start: 11-20-2023 End: 11-20-2023 ambulatory Alanna Nieto Facility:[facility] Start: 06-14-2023 End: 06-15-2023 Evaluation and management of inpatient [facility]-Medical Surgical 3 Work Phone: Start: 06-03-2023 End: 06-03-2023 ambulatory [facility] Work Phone: Start: 06-03-2023 End: 06-03-2023 Patient encounter procedure [facility]-Laboratory Work Phone: Start: 06-02-2023 End: 06-02-2023 ambulatory [facility] Work Phone: Start: 06-02-2023 End: 06-02-2023 Patient encounter procedure [facility]-Laboratory Work Phone: Start: 01-06-2023 End: 01-06-2023 ambulatory [facility] Work Phone: Start: 01-06-2023 End: 01-06-2023 Patient encounter procedure [facility]-Outpatient Pavilion Ultrasound Work Phone: Start: 12-27-2022 End: 12-27-2022 ambulatory [facility] Work Phone: Start: 12-27-2022 End: 12-27-2022 Patient encounter procedure [facility]-Outpatient Breast Imaging Work Phone: Start: 12-16-2022 End: [...] [facility] Start: 12-09-2022 Registered Referred [facility] Start: 10-31-2022 Mayra Escobedo CNP Work Phone: [facility] Start: 10-31-2022 End: 11-01-2022 Office outpatient visit 15 minutes Mayra Escobedo CNP Work Phone: [facility] Start: 10-25-2022 End: 10-25-2022 Emergency department patient visit [facility]-Emergency Department Work Phone: Start: 09-05-2022 End: 09-05-2022 ambulatory [facility] Work Phone: Start: 09-05-2022 End: 09-05-2022 Patient encounter procedure [facility]-Radiology, [facility] Work Phone: Start: 07-01-2022 ambulatory Mayra Escobedo CNP [facility] Start: 07-01-2022 End: 07-01-2022 Patient encounter procedure [facility]-Laboratory, [place] Work Phone: Start: 07-01-2022 End: 07-01-2022 Office [...] Phone: [facility] Start: 03-28-2022 Mayra Escobedo CNP Work Phone: [facility] Start: 03-16-2022 End: 03-16-2022 Mayra Escobedo CNP Work Phone: [facility] Start: 01-19-2022 [...] 07-22-2021 End: 07-22-2021 Emergency department patient visit [facility]-Emergency Department Start: 04-12-2021 End: 04-12-2021 Discharged Recurring [facility]-Physical Therapy Start: 04-06-2021 End: 04-06-2021 Office outpatient visit 40 minutes Leatha Morrison SUPERVISOR DOG LICENSE OFFICER Work Phone: [facility] Start: 01-11-2021 End: 01-11-2021 Office outpatient visit 10 minutes Leatha Morrison SUPERVISOR DOG LICENSE OFFICER Work Phone: [facility] Start: 11-09-2020 End: 11-09-2020 Patient encounter procedure Leatha Morrison Work Phone: [facility] Start: 11-09-2020 End: 11-09-2020 Periodic preventive med est patient 65yrs& older Leatha Morrison SUPERVISOR DOG LICENSE OFFICER Work Phone: [facility] Start: 10-27-2020 End: 10-27-2020 Leatha Morrison SUPERVISOR DOG LICENSE OFFICER Work Phone: [facility] Start: 10-27-2020 End: 10-27-2020 Office outpatient visit 10 minutes Leatha Morrison SUPERVISOR DOG LICENSE OFFICER Work Phone: [facility] Start: 10-20-2020 End: 10-20-2020 Office outpatient visit 15 minutes Leatha Morrison SUPERVISOR DOG LICENSE OFFICER Work Phone: [facility] Start: 03-13-2020 End: 03-13-2020 Office outpatient visit 10 minutes Leatha Morrison [facility] Start: 09-25-2019 End: 09-25-2019 Patient encounter status Leatha Morrison Work Phone: [facility] Start: 09-25-2019 End: 09-25-2019 Periodic preventive med est patient 65yrs& older Leatha Glendaelvialeonard [facility] Start: 08-14-2019 End: 08-14-2019 Annotation/Addendum Leatha Morrison [facility] Start: 08-14-2019 End: 08-14-2019 Leatha Dawkinsleonard RAPP Work Phone: [facility] Start: 08-13-2019 End: 08-13-2019 Annotation/Addendum Leatha Morrison [facility] Start: 08-13-2019 End: 08-13-2019 Leatha Morrison SUPERVISOR DOG LICENSE OFFICER Work Phone: [facility] Start: 08-13-2019 End: 08-13-2019 Office outpatient visit 25 minutes Leatha Morrison [facility] Start: 07-26-2019 End: 07-26-2019 Annotation/Addendum Leatha Morrison [facility] Start: 07-26-2019 End: 07-26-2019 Leatha Morrison SUPERVISOR DOG LICENSE OFFICER Work Phone: [facility] Start: 04-01-2019 End: 04-01-2019 Phone Encounter Leatha Morrison [facility] Start: 04-01-2019 End: 04-01-2019 Leatha Morrison SUPERVISOR DOG LICENSE OFFICER Work Phone: [facility] Start: 04-01-2019 End: 04-01-2019 Annotation/Addendum Leatha Morrison [facility] Start: 04-01-2019 End: 04-01-2019 Leatha Morrison SUPERVISOR DOG LICENSE OFFICER Work Phone: [facility] Start: 11-12-2018 End: 11-12-2018 Lab Order Leatha Morrison [facility] Start: 11-12-2018 End: 11-12-2018 Leatha Morrison SUPERVISOR DOG LICENSE OFFICER Work Phone: [facility] Start: 11-05-2018 End: 11-05-2018 Office outpatient visit 25 minutes Leatha Morrison [facility] Start: 11-05-2018 Review Leatha Tamiko [facility] Start: 10-29-2018 End: 10-29-2018 Annotation/Addendum Leatha Morrison [facility] Start: 10-29-2018 End: 10-29-2018 Leatha Morrison SUPERVISOR DOG LICENSE OFFICER Work Phone: [facility] Start: 10-25-2018 End: 10-25-2018 Office outpatient visit 15 minutes Leatha Morrison [facility] Start: 07-20-2018 End: 07-20-2018 Patient encounter procedure Leatha Morrison [facility] Start: 07-20-2018 End: 07-20-2018 Leatha Morrison SUPERVISOR DOG LICENSE OFFICER Work Phone: [facility] Start: 07-18-2018 End: 07-18-2018 Phone Encounter Leatha Morrison [facility] Start: 07-18-2018 End: 07-18-2018 Leatha Morrison SUPERVISOR DOG LICENSE OFFICER Work Phone: [facility] Start: 06-19-2018 End: 06-19-2018 Office outpatient visit 15 minutes Leatha Morrison [facility] Start: 11-28-2017 End: 11-28-2017 Phone Encounter Leatha Morrison [facility] Start: 11-28-2017 End: 11-28-2017 Leatha Morrison SUPERVISOR DOG LICENSE OFFICER Work Phone: [facility] Start: 11-15-2017 End: 11-15-2017 Patient encounter status Leatha Morrison Work Phone: [facility] Start: 11-15-2017 End: 11-15-2017 Periodic preventive med est patient 65yrs& older Leatha Morrison [facility] Start: 12-08-2016 End: 12-12-2016 Annotation/Addendum Leatha Morrison [facility] Start: 12-08-2016 End: 12-12-2016 Leatha Morrison SUPERVISOR DOG LICENSE OFFICER Work Phone: [facility] Start: 11-15-2016 End: 11-15-2016 Patient encounter status Leatha Morrison SUPERVISOR DOG LICENSE OFFICER Work Phone: [facility]; [facility] Work Phone: Start: 11-15-2016 End: 11-15-2016 Periodic preventive med est patient 65yrs& older Leatha Morrison [facility] Start: 11-16-2015 End: 11-16-2015 Annotation/Addendum Leatha Morrison [facility] Start: 11-16-2015 End: 11-16-2015 Leatha Morrison SUPERVISOR DOG LICENSE OFFICER Work Phone: [facility] Start: 11-16-2015 End: 11-16-2015 Periodic preventive med est patient 65yrs& older Leatha Morrison [facility] Start: 09-07-2015 End: 09-07-2015 Lab Order Leatha Morrison [facility] Start: 09-07-2015 End: 09-07-2015 Leatha Morrison SUPERVISOR DOG LICENSE OFFICER Work Phone: [facility] Start: 09-04-2015 End: 09-04-2015 Office outpatient visit 25 minutes Leatha Dawkinsleonard [facility] Start: 02-26-2015 End: 02-26-2015 Refill Request Leatha Glendaelvialeonard [facility] Start: 02-26-2015 End: 02-26-2015 Leatha Morrison SUPERVISOR DOG LICENSE OFFICER Work Phone: [facility] Start: 02-23-2015 End: 02-23-2015 Office outpatient visit 15 minutes Leatha Glendaelvialeonard [facility] Start: 01-13-2015 End: 01-13-2015 Office outpatient visit 25 minutes Leatha Glendaelvialeonard [facility] Start: 11-18-2014 End: 11-18-2014 Office outpatient new 10 minutes Leatha Glendaelvialeonard [facility] Start: 10-14-2014 End: 10-14-2014 Office outpatient visit 25 minutes Leatha Glendaelvialeonard [facility] Start: 08-19-2014 End: 08-19-2014 Office outpatient visit 15 minutes Leatha Glendaelvialeonard [facility] Start: 04-01-2014 End: 04-01-2014 Office outpatient visit 15 minutes Leatha Glendaelvialeonard [facility] Start: 11-12-2013 End: 11-12-2013 Patient encounter procedure Leatha Morrison Work Phone: [facility] Start: 11-12-2013 End: 11-12-2013 Periodic preventive med est patient 40-64yrs Leatha Dawkinsleonard [facility] Start: 08-27-2013 End: 08-27-2013 Patient encounter Leatha Morrison [facility] Start: 08-27-2013 End: 08-27-2013 Leatha Morrison SUPERVISOR DOG LICENSE OFFICER Work Phone: [facility] Start: 08-26-2013 End: 08-29-2013 Patient encounter Leatha Morrison [facility] Start: 08-26-2013 End: 08-29-2013 Leatha Morrison SUPERVISOR DOG LICENSE OFFICER Work Phone: [facility] Start: 05-13-2013 End: 05-13-2013 Patient encounter Leatha Morrison [facility] Start: 05-13-2013 End: 05-13-2013 Leatha Morrison SUPERVISOR DOG LICENSE OFFICER Work Phone: [facility] Start: 03-29-2013 End: 03-29-2013 Phone Encounter Leatha Morrison [facility] Start: 03-29-2013 End: 03-29-2013 Leatha Morrison CNP Work Phone: [facility] Start: 03-14-2013 End: 03-14-2013 Lab Order Leatha Morrison [facility] Start: 03-14-2013 End: 03-14-2013 Leatha Morrison SUPERVISOR DOG LICENSE OFFICER Work Phone: [facility] Start: 03-11-2013 End: 03-11-2013 Patient encounter Leatha Morrison [facility] Start: 03-11-2013 End: 03-11-2013 Preprocedural examination done Leatha Morrison Work Phone: [facility] Start: 03-11-2013 End: 03-11-2013 Leatha Morrison CNP Work Phone: [facility] Start: 03-08-2013 Preoperative cardiovascular examination [facility] Work Phone: Start: 01-21-2013 End: 01-21-2013 Office outpatient visit 25 minutes Leatha Morrison [facility] Start: 11-16-2012 End: 11-16-2012 Office outpatient visit 15 minutes Leatha Morrison [facility] Start: 11-15-2012 End: 11-15-2012 Phone Encounter Leatha Morrison [facility] Start: 11-15-2012 End: 11-15-2012 Leatha Morrison SUPERVISOR DOG LICENSE OFFICER Work Phone: [facility] Start: 09-21-2012 End: 09-21-2012 Office outpatient visit 15 minutes Leatha Morrison [facility] Start: 08-29-2012 End: 08-29-2012 Annotation/Addendum Leatha Morrison [facility] Start: 08-29-2012 End: 08-29-2012 Leatha Morrison SUPERVISOR DOG LICENSE OFFICER Work Phone: [facility] Start: 08-29-2012 End: 08-29-2012 Refill Request Leatha Morrison [facility] Start: 08-29-2012 End: 08-29-2012 Leatha Morrison SUPERVISOR DOG LICENSE OFFICER Work Phone: [facility] Start: 08-29-2012 End: 08-29-2012 Annotation/Addendum Leatha Morrison [facility] Start: 08-29-2012 End: 08-29-2012 Leatha Morrison SUPERVISOR DOG LICENSE OFFICER Work Phone: [facility] Start: 08-29-2012 End: 08-29-2012 Phone Encounter Leatha Morrison [facility] Start: 08-29-2012 End: 08-29-2012 Leatha Morrison SUPERVISOR DOG LICENSE OFFICER Work Phone: [facility] Start: 07-09-2012 End: 07-09-2012 Patient encounter Leatha Morrison [facility] Start: 07-09-2012 End: 07-09-2012 Preprocedural examination done Leatha Morrison Work Phone: [facility] Start: 07-09-2012 End: 07-09-2012 Leatha Morrison SUPERVISOR DOG LICENSE OFFICER Work Phone: [facility] Start: 06-01-2012 End: 06-01-2012 Annotation/Addendum Leatha Morrison [facility] Start: 06-01-2012 End: 06-01-2012 Leatha Morrison SUPERVISOR DOG LICENSE OFFICER Work Phone: [facility] Start: 05-31-2012 End: 05-31-2012 Patient encounter Leatha Morrison [facility] Start: 05-31-2012 End: 05-31-2012 Leatha Morrison SUPERVISOR DOG LICENSE OFFICER Work Phone: [facility] Start: 05-21-2012 End: 05-21-2012 Phone Encounter Leatha Morrison [facility] Start: 05-21-2012 End: 05-21-2012 Leatha Morrison SUPERVISOR DOG LICENSE OFFICER Work Phone: [facility] Start: 05-18-2012 End: 05-18-2012 Prescription Refill Leatha Morrison [facility] Start: 05-18-2012 End: 05-18-2012 Leatha Morrison SUPERVISOR DOG LICENSE OFFICER Work Phone: [facility] Start: 05-18-2012 End: 05-18-2012 Office outpatient visit 15 minutes Leatha Morrison [facility] Start: 05-11-2012 End: 05-11-2012 Annotation/Addendum Leatha Morrison [facility] Start: 05-11-2012 End: 05-11-2012 Leatha Morrison SUPERVISOR DOG LICENSE OFFICER Work Phone: [facility] Start: 05-08-2012 End: 05-08-2012 Office outpatient visit 15 minutes Leatha Morrison [facility] Start: 04-03-2012 End: 04-03-2012 Patient encounter Leatha Morrison [facility] Start: 04-03-2012 End: 04-03-2012 Leatha Morrison SUPERVISOR DOG LICENSE OFFICER Work Phone: [facility] Start: 03-16-2012 End: 03-16-2012 Phone Encounter Leatha Morrison [facility] Start: 03-16-2012 End: 03-16-2012 Leatha Morrison SUPERVISOR DOG LICENSE OFFICER Work Phone: [facility] Start: 11-02-2011 End: 11-02-2011 Annotation/Addendum Leatha Morrison [facility] Start: 11-02-2011 End: 11-02-2011 Leatha Morrison SUPERVISOR DOG LICENSE OFFICER Work Phone: [facility] Start: 11-01-2011 End: 11-01-2011 Patient encounter Leatha Morrison [facility] Start: 11-01-2011 End: 11-01-2011 Leatha Morrison SUPERVISOR DOG LICENSE OFFICER Work Phone: [facility] Start: 10-05-2011 End: 10-05-2011 Phone Encounter Leatha Morrison [facility] Start: 10-05-2011 End: 10-05-2011 Leatha Morrison SUPERVISOR DOG LICENSE OFFICER Work Phone: [facility] Start: 10-05-2011 End: 10-05-2011 Patient encounter Leatha Morrison [facility] Start: 10-05-2011 End: 10-05-2011 Leatha Morrison CNP Work Phone: [facility] Start: 10-04-2011 End: 10-04-2011 Office outpatient visit 15 minutes Leatha Morrison [facility] Start: 09-07-2011 End: 09-07-2011 Nursing evaluation of patient and report Leatha Morrison [facility] Start: 09-07-2011 End: 09-07-2011 Leatha Morrison SUPERVISOR DOG LICENSE OFFICER Work Phone: [facility] Start: 09-07-2011 End: 09-07-2011 Phone Encounter Leatha Morrison [facility] Start: 09-07-2011 End: 09-07-2011 Leatha Morrison SUPERVISOR DOG LICENSE OFFICER Work Phone: [facility] Start: 09-05-2011 End: 09-05-2011 Office outpatient visit 15 minutes Leatha Morrison [facility] Start: 07-28-2011 End: 07-28-2011 Patient encounter Leatha Morrison [facility] Start: 07-28-2011 End: 07-28-2011 Leatha Morrison SUPERVISOR DOG LICENSE OFFICER Work Phone: [facility] Start: 07-20-2011 End: 07-20-2011 Office outpatient visit 10 minutes Leatha Morrison [facility] Start: 07-15-2011 End: 07-15-2011 Lab Order Leatha Morrison [facility] Start: 07-15-2011 End: 07-15-2011 Leatha Morrison SUPERVISOR DOG LICENSE OFFICER Work Phone: [facility] Start: 07-15-2011 End: 07-15-2011 Phone Encounter Leatha Morrison [facility] Start: 07-15-2011 End: 07-15-2011 Leatha Morrison SUPERVISOR DOG LICENSE OFFICER Work Phone: [facility] Start: 07-14-2011 End: 07-14-2011 Patient encounter Leatha Morrison [facility] Start: 07-14-2011 End: 07-14-2011 Leatha Morrison SUPERVISOR DOG LICENSE OFFICER Work Phone: [facility] Start: 07-04-2011 End: 07-04-2011 Patient encounter Leatha Morrison [facility] Start: 07-04-2011 End: 07-04-2011 Leatha Morrison SUPERVISOR DOG LICENSE OFFICER Work Phone: [facility] Start: 07-01-2011 End: 07-01-2011 Patient encounter Leatha Morrison [facility] Start: 07-01-2011 End: 07-01-2011 Leatha Morrison SUPERVISOR DOG LICENSE OFFICER Work Phone: [facility] Start: 06-30-2011 End: 06-30-2011 Patient encounter Leatha Morrison [facility] Start: 06-30-2011 End: 06-30-2011 Leatha Morrison SUPERVISOR DOG LICENSE OFFICER Work Phone: [facility] Start: 06-29-2011 End: 06-29-2011 Patient encounter Leatha Morrison [facility] Start: 06-29-2011 End: 06-29-2011 Leatha Morrison SUPERVISOR DOG LICENSE OFFICER Work Phone: [facility] Start: 06-28-2011 End: 06-28-2011 Patient encounter Leatha Morrison [facility] Start: 06-28-2011 End: 06-28-2011 Leatha Morrison SUPERVISOR DOG LICENSE OFFICER Work Phone: [facility] Start: 06-27-2011 End: 06-27-2011 Patient encounter Leatha Morrison [facility] Start: 06-27-2011 End: 06-27-2011 Leatha Morrison SUPERVISOR DOG LICENSE OFFICER Work Phone: [facility] Start: 06-24-2011 End: 06-24-2011 Erroneous Entry Leatha Morrison [facility] Start: 06-24-2011 End: 06-24-2011 Leatha Morrison SUPERVISOR DOG LICENSE OFFICER Work Phone: [facility] Start: 06-24-2011 End: 06-24-2011 Office outpatient visit 25 minutes Leatha Morrison [facility] Start: 06-21-2011 End: 06-21-2011 Office outpatient visit 25 minutes Leatha Morrison [facility] Start: 06-14-2011 End: 06-14-2011 Office outpatient visit 15 minutes Leatha Morrison [facility] Start: 03-02-2011 End: 03-02-2011 Annotation/Addendum Leatha Morrison [facility] Start: 03-02-2011 End: 03-02-2011 Leatha Morrison SUPERVISOR DOG LICENSE OFFICER Work Phone: [facility] Start: 02-25-2011 End: 02-25-2011 Office outpatient visit 15 minutes Leatha Morrison [facility] Start: 02-07-2011 End: 02-07-2011 Office outpatient visit 25 minutes Leatha Morrison [facility] Start: 01-11-2011 End: 01-11-2011 Patient encounter Leatha Morrison [facility] Start: 01-11-2011 End: 01-11-2011 Leatha Morrison SUPERVISOR DOG LICENSE OFFICER Work Phone: [facility] Start: 10-07-2010 End: 10-07-2010 Phone Encounter Leatha Morrison [facility] Start: 10-07-2010 End: 10-07-2010 Leatha Morrison SUPERVISOR DOG LICENSE OFFICER Work Phone: [facility] Start: 10-07-2010 End: 10-07-2010 Office outpatient visit 25 minutes Leatha Morrison [facility] Start: 06-15-2010 End: 06-15-2010 Annotation/Addendum Leatha Morrison [facility] Start: 06-15-2010 End: 06-15-2010 Leatha Morrison SUPERVISOR DOG LICENSE OFFICER Work Phone: [facility] Start: 06-08-2010 End: 06-08-2010 Office outpatient visit 25 minutes Leatha Morrison [facility] Start: 01-25-2010 End: 01-25-2010 Annotation/Addendum Leatha Morrison [facility] Start: 01-25-2010 End: 01-25-2010 Leatha Morrison SUPERVISOR DOG LICENSE OFFICER Work Phone: [facility] Start: 01-21-2010 End: 01-21-2010 Office outpatient visit 25 minutes Leatha Morrison [facility] Start: 01-04-2010 End: 01-04-2010 Phone Encounter Leatha Morrison [facility] Start: 01-04-2010 End: 01-04-2010 Leatha Morrison SUPERVISOR DOG LICENSE OFFICER Work Phone: [facility] Start: 12-31-2009 End: 12-31-2009 Patient encounter Leatha Morrison [facility] Start: 12-31-2009 End: 12-31-2009 Leatha Morrison SUPERVISOR DOG LICENSE OFFICER Work Phone: [facility] Start: 12-28-2009 End: 12-28-2009 Annotation/Addendum Leatha Morrison [facility] Start: 12-28-2009 End: 12-28-2009 Leatha Morrison SUPERVISOR DOG LICENSE OFFICER Work Phone: [facility] Start: 12-22-2009 End: 12-22-2009 Phone Encounter Leatha Morrison [facility] Start: 12-22-2009 End: 12-22-2009 Leatha Morrison SUPERVISOR DOG LICENSE OFFICER Work Phone: [facility] Start: 07-21-2009 End: 07-21-2009 Patient encounter Leatha Morrison [facility] Start: 07-21-2009 End: 07-21-2009 Leatha Morrison SUPERVISOR DOG LICENSE OFFICER Work Phone: [facility] Start: 07-14-2009 End: 07-14-2009 Patient encounter Leatha Morrison [facility] Start: 07-14-2009 End: 07-14-2009 Leatha Morrison CNP Work Phone: [facility] Start: 04-28-2009 End: 04-28-2009 Historical Summary Leatha Morrison [facility] Start: 04-28-2009 End: 04-28-2009 Leatha Morrison SUPERVISOR DOG LICENSE OFFICER Work Phone: [facility] Start: 11-25-2008 End: 11-25-2008 Phone Encounter Leatha Morrison [facility] Start: 11-25-2008 End: 11-25-2008 Leatha Morrison SUPERVISOR DOG LICENSE OFFICER Work Phone: [facility] Start: 11-24-2008 End: 11-24-2008 Phone Encounter Leatha Morrison [facility] Start: 11-24-2008 End: 11-24-2008 Leatha Morrison SUPERVISOR DOG LICENSE OFFICER Work Phone: [facility] Start: 11-17-2008 End: 11-17-2008 Phone Encounter Leatha Morrison [facility] Start: 11-17-2008 End: 11-17-2008 Leatha Morrison SUPERVISOR DOG LICENSE OFFICER Work Phone: [facility] Start: 11-04-2008 End: 11-04-2008 Office outpatient visit 25 minutes Leatha Morrison [facility] Start: 10-29-2008 End: 10-29-2008 Patient encounter Leatha Morrison [facility] Start: 10-29-2008 End: 10-29-2008 Leatha Morrison SUPERVISOR DOG LICENSE OFFICER Work Phone: [facility] Start: 07-10-2008 End: 07-10-2008 Patient encounter Leatha Morrison [facility] Start: 07-10-2008 End: 07-10-2008 Leatha Morrison SUPERVISOR DOG LICENSE OFFICER Work Phone: [facility] Start: 05-12-2008 End: 05-12-2008 Patient encounter Leatha Morrison [facility] Start: 05-12-2008 End: 05-12-2008 Leatha Morrison CNP Work Phone: [facility] Start: 04-24-2008 End: 04-24-2008 Patient encounter Leatha Morrison [facility] Start: 04-24-2008 End: 04-24-2008 Leatha Morrison SUPERVISOR DOG LICENSE OFFICER Work Phone: [facility] Start: 04-01-2008 End: 04-01-2008 Phone Encounter Leatha Morrison [facility] Start: 04-01-2008 End: 04-01-2008 Leatha Morrison SUPERVISOR DOG LICENSE OFFICER Work Phone: [facility] Start: 12-10-2007 End: 12-10-2007 Office outpatient visit 15 minutes Leatha Morrison [facility] Start: 08-08-2007 End: 08-08-2007 Office outpatient visit 15 minutes Leatha Morrison [facility] Start: 05-01-2007 End: 05-01-2007 Office outpatient visit 15 minutes Leatha Morrison [facility] Start: 04-18-2007 End: 04-18-2007 Patient encounter Leatha Morrison [facility] Start: 04-18-2007 End: 04-18-2007 Leatha Morrison SUPERVISOR DOG LICENSE OFFICER Work Phone: [facility] Start: 01-31-2007 End: 01-31-2007 Patient encounter Leatha Morrison [facility] Start: 01-31-2007 End: 01-31-2007 Leatha Morrison SUPERVISOR DOG LICENSE OFFICER Work Phone: [facility] Start: 01-23-2007 End: 01-23-2007 Office outpatient visit 25 minutes Leatha Morrison [facility] Start: 12-21-2006 End: 12-21-2006 Patient encounter Leatha Morrison [facility] Start: 12-21-2006 End: 12-21-2006 Leatha Morrison SUPERVISOR DOG LICENSE OFFICER Work Phone: [facility] Start: 09-05-2006 End: 09-05-2006 Patient encounter Leatha Morrison [facility] Start: 09-05-2006 End: 09-05-2006 Leatha Morrison SUPERVISOR DOG LICENSE OFFICER Work Phone: [facility] Start: 02-02-2006 End: 02-02-2006 Historical Summary Leatha Morrison [facility] Start: 02-02-2006 End: 02-02-2006 Leatha Morrison SUPERVISOR DOG LICENSE OFFICER Work Phone: [facility] Start: 11-23-2005 End: 11-23-2005 Historical Summary Leatha Morrison [facility] Start: 11-23-2005 End: 11-23-2005 Leatha Morrison SUPERVISOR DOG LICENSE OFFICER Work Phone: [facility] Start: 11-15-2005 End: 11-15-2005 Historical Summary Leatha Morrison [facility] Start: 11-15-2005 End: 11-15-2005 Leatha Morrison SUPERVISOR DOG LICENSE OFFICER Work Phone: [facility] Start: 11-14-2005 End: 11-14-2005 Historical Summary Leatha Morrison [facility] Start: 11-14-2005 End: 11-14-2005 Leatha Morrison SUPERVISOR DOG LICENSE OFFICER Work Phone: [facility] Start: 11-01-2005 End: 11-01-2005 Historical Summary Leatha Morrison [facility] Start: 11-01-2005 End: 11-01-2005 Leatha Morrison SUPERVISOR DOG LICENSE OFFICER Work Phone: [facility] Start: 10-26-2005 End: 10-27-2005 Office outpatient visit 25 minutes Leatha Morrison [facility] Start: 10-05-2005 End: 10-05-2005 Historical Summary Leatha Morrison [facility] Start: 10-05-2005 End: 10-05-2005 Leatha Morrison SUPERVISOR DOG LICENSE OFFICER Work Phone: [facility] Encounter for [...] End: 06-14-2022 Patient encounter procedure Mayra Escobedo SUPERVISOR DOG LICENSE OFFICER Work Phone: [facility]; [facility] [...] Work Phone: End: 05-13-2013 Preprocedural examination done Compound Worker [facility]; [facility] Work Phone: Procedures Date Procedure Procedure Detail Performing Clinician Start: 07-02-2024 Vitamin D, 25-hydroxy measurement Mayra Escobedo MANAGER FURNITURE-C Work Phone: Comment on above: Vitamin D StatusDeficiency: <20 ng/mL (5 0nmol/L)Insufficiency: 20-30 ng/mL (50-75 nmol/L)Sufficiency: 30-100 ng/mL (75-250 nmol/L)Toxicity: >100 ng/mL (>250 nmol/L) Start: 04-02-2024 Assay of phosphorus inorganic Mayra Escobedo MANAGER FURNITURE-C Work Phone: Start: 04-02-2024 Estimated creatinine clearance Mayra Escobedo MANAGER FURNITURE-C Work Phone: Start: 04-02-2024 Measurement of renal function Mayra Escobedo MANAGER FURNITURE-C Work Phone: Comment on above: GFR Calc Start: 04-01-2024 MRI of brain without contrast Mayra Gregg MANAGER FURNITURE-C Work Phone: Start: 04-01-2024 CT angiography of head and neck Mayra Gregg MANAGER FURNITURE-C Work Phone: Start: 04-01-2024 CT of head without contrast Mayra Gregg MANAGER FURNITURE-C Work Phone: Start: 04-01-2024 Plain chest X-ray Mayra Gregg MANAGER FURNITURE-C Work Phone: Start: 03-11-2024 MRI of joint of lower extremity Mayra Gregg MANAGER FURNITURE-C Work Phone: Start: 06-14-2023 Radiologic examination of knee Start: 06-14-2023 Revision of knee arthroplasty Start: 06-02-2023 Nasal Screen MRSA/MSSA Start: 01-06-2023 Ultrasonography of breast Start: 12-27-2022 Screening mammography Start: 10-25-2022 End: 10-25-2022 Procedure Note: See Note; NOTES: [facility] Medical Records Department [address] [place] [address] Emergency Department Summary 10/25/22 MR#: [id number] Acct: [id number] Name: HANNAH LIGHT Rep #: [id number] : 1950 72 From: Kit Still MD [...] Recent Illness/Hospitalization: No PFSH PFSH Medical History Hypertension Home Medications ferrous sulfate [...] problems, contact your Primary Care Provider. Call [facility] ([phone]) or report to the closest Emergency Room. Call 911 if necessary. 10/25/22 1033 <Electronically signed by Kit Still MD> Cosigner Signature (if applicable): CC: REBECCA Escobedo Signed Mayra Escobedo SUPERVISOR DOG LICENSE OFFICER Work Phone: Start: 09-05-2022 Radiography of esophagus Start: 09-05-2022 End: 09-05-2022 Procedure Note: See Note; NOTES: [facility] Imaging Services [address] [place] [address] Esophagus Dual Contrast MR#: [id number] Acct: [id number] Name: HANNAH LIGHT Rep #: [id number] : 1950 F 72 From: Darin Khanna PCP: REBECCA Wallace Status: REG CLI Study: Esophagus Dual Contrast Date of Exam: 09/05/22 Exam# [id number] Ordering Dr: Eduin Caro MD CLINICAL HISTORY: [...] 12:47 EDT Reading Location ID and State: [id number] / Unknown , Service support , CC: REBECCA Escobedo; Dr. Eduin Caro MD Staple Laster: Signed Mayra Escobedo SUPERVISOR DOG LICENSE OFFICER Work Phone: Start: 07-22-2021 Radiologic examination of knee Start: 04-12-2021 End: 04-12-2021 Procedure Note: See Note; NOTES: [facility] Physical Therapy [facility] [place] [address] / REHABILITATION SERVICES INITIAL EVALUATION MR#: [id number] Acct: [id number] Name: HANNAH LIGHT Rep #: [id number] : 1950 71 From: Moreno Escobedo DPT, [place], CSCS Referring Dr.: Dr. Melissa Arnett MD Status: REG RCR Insurance: [facility] [employer] SELF PAY INSURANCE Patient's Visit Information [...] looking at computer and got very dizzy. Belden it in both eyes at the time [...] to be FAXED BACK to us at [phone] for Medicare purposes. For Medicare only, by signing this I certify the plan of care. Please let me know if there are questions or concerns regarding this plan of care. Physician Signature: Date: <Electronically signed by Moreno Escobedo DPT, OCS, CSCS> 04/12/21 5492 CC: REBECCA Morrison; Dr. Melissa Arnett MD EBG Signed Leatha Morrison Work Phone: Start: 10-10-2020 End: 10-10-2020 Comments: See Note; NOTES: [facility] [address] [place] [address] [address] [place] [address] OFFICE VISIT Date of Service: 10/10/20 MR#: [id number] Acct: [id number] Name: HANNAH LIGHT Rep #: [id number] : 1950 Provider: REBECCA ordaz Age/Sex: 70/F Location: [facility] Status: Signed Intake Vital Signs 10/10/20 09:08 [...] (Updated 10/10/20 @ 09:51 by Julienne Lares MANAGER FURNITURE, MANAGER FURNITURE-C) Hypertension Family History (Updated 10/10/20 @ 09:25 [...] cooperative, healthy appearing and no acute distress [facility] Head: normal to inspection Ears: hearing grossly [...] Status: Acute Plan - Julienne Lares NP, MANAGER FURNITURE-C: 1. Hives, allergic dermatitis-suspected secondary to recent [...] 0955 <Electronically signed by Julienne Lares NP MANAGER FURNITURE-C> Date Julienne Arnaud HA MANAGER FURNITURE-C Jenniferigner Signature: Date (if applicable) CC: Leatha Morrison [facility] Work Phone: Start: 04-01-2019 End: 04-02-2019 Hand Min 3 Views Comments: See Note; NOTES: [facility] Imaging Services [address] [place] [address] Hand Min 3 Views MR#: [id number] Acct: [id number] Name: HANNAH LIGHT Rep #: [id number] : 1950 F 69 From: Brennon Robles MD PCP: REBECCA Carty Status: REG CLI Study: Hand Min 3 Views Date of Exam: 04/01/19 Exam# [id number] Ordering Dr: Leatha Morrison STUDY: X-RAY - [...] , Service support , CC: REBECCA Morrison Staple Laster: Signed Leatha Morrison Work Phone: Start: 11-04-2018 End: 11-04-2018 Emergency Department Summary Comments: See Note; NOTES: [facility] Medical Records Department [address] [place] [address] Emergency Department Summary 11/04/18 0949 MR#: [id number] Acct: [id number] Name: HANNAH LIGHT Rep #: [id number] : 1950 68 From: William OLSEN PCP: [...] Reason: Pain Prescription Printed Referrals: Leatha Morrison, MANAGER FURNITURE-C [Primary Care Provider] - What to do if you have Problems For any increased pain, shortness of breath, bleeding, nausea or vomiting, chest pain, or any unexpected problems, contact your Primary Care Provider. Call [facility] ([phone]) or report to the closest Emergency Room. Call 911 if necessary. 11/04/18 1022 <Electronically signed by William OLSEN> Date William OLSEN 11/04/18 1519<Electronically signed by Naty Nur MD> Cosigner Signature (If Indicated): Date Naty Nur MD CC: MANAGER FURNITURESneha Morrison Start: 12-10-2017 End: 12-10-2017 Emergency Department Summary Comments: See Note; NOTES: [facility] Medical Records Department [address] [place] [address] Emergency Department Summary 12/10/17 1516 MR#: [id number] Acct: [id number] Name: HANNAH LIGHT Rep #: [id number] : 1950 67 From: Faustino Perkins MD [...] pain, acute. This note was generated with Sport[employer] dictation software. It may contain incorrect words, spelling, and punctuation that were not noted in review of the chart prior to signing ED Disposition - Plan for ED Patient: Disposition: Home or Assisted Living Chief Complaint: Lower Extremity Injury Instructions: ED Sprain Foot Referrals: Leatha Morrison NP-C [Primary Care Provider] - Gregory Rogers DPM [STAFF PHYSICIAN] - 1 Week if not improving What to do if you have Problems For any increased pain, shortness of breath, bleeding, nausea or vomiting, chest pain, or any unexpected problems, contact your Primary Care Provider. Call [facility] ([phone]) or report to the closest Emergency Room. Call 911 if necessary. 12/10/17 1641 <Electronically signed by Faustino Perkins MD> Date Faustino Perkins MD Cosigner Signature (If Indicated): Date CC: Leatha Morrison NP Leatha Morrison Start: 12-10-2017 End: 12-10-2017 Foot min 3 Views Comments: See Note; NOTES: [facility] Imaging Services [address] [place] [address] Foot min 3 Views MR#: [id number] Acct: [id number] Name: HANNAH LIGHT Leonard Rep #: [id number] : 1950 F 67 From: Cain Johnson DO PCP: Leatha Morrison NP Status: REG ER Study: Foot min 3 Views Date of Exam: 12/10/17 Exam# [id number] Ordering Dr: Faustino Perkins MD STUDY: X-RAY [...] , Service support , CC: Leatha Morrison NP; Faustino Perkins MD Staple Laster: Signed Leatha Dawkinsleonard Start: 2017 End: 2017 Stress Report Comments: See Note; NOTES: [facility] Cardiovascular Services [address] [place] [address] MR#: [id number] Acct: [id number] Name: HANNAH LIGHT Rep #: [id number] : 1950 67 From: Kristyn Leblanc MD [...] of 78%. This note was generated with FIZZAation software. It may contain incorrect words, spelling, and punctuation that were not noted in checking the note before signing. 01/03/17 1644 <Electronically signed by Kristyn Leblanc MD> Date Kristyn Leblanc MD CC: Leatha Morrison; MANAGER FURNITURE Jeffrey Leal; Kristyn Leblanc MD Date Dictated: 01/03/171638 Date Transcribed: 01/03/171638 Staple Laster: PM Signed Leatha Morrison Start: 12-19-2016 End: 12-19-2016 Dietary management education, guidance, and counseling Tori Anthony Start: 12-19-2016 End: 12-19-2016 Documentation of current medications Tori Anthony Start: 12-19-2016 End: 12-19-2016 Follow Up Appt 6 months Jeffrey Leal MANAGER FURNITURE Work Phone: Start: 12-19-2016 End: 12-19-2016 PFM Jeffrey Leal MANAGER FURNITURE Work Phone: Start: 04-01-2016 End: 04-04-2016 SCREENING MAMM (CAD), BILAT Comments: See Note; NOTES: [facility] Imaging Services [address] [place] [address] Verdana 4d SCREENING MAMM (CAD), BILAT MR#: [id number] Acct: [id number] Name: HANNAH LIGHT Rep #: [id number] : 1950 F 66 From: Jimi Morales MD PCP: Leatha Morrison Status: REG CLI Study: SCREENING MAMM (CAD), BILAT Date of Exam: 04/01/16 Exam# [id number] Ordering Dr: Leatha Morrison MAMMOGRAPHY - BILATERAL [...] delay biopsy of a clinically suspicious abnormality. [id number] Electronically Signed: Jimi Morales MD at 8:01 EST Tel [phone], Service support [phone], CC: Leatha Morrison Staple Laster: Signed Leatha Morrison Work Phone: Start: 11-23-2015 End: 11-23-2015 Operative Report Comments: See Note; NOTES: [facility] Medical Records Department [address] [place] [address] Operative Report MR#: [id number] Acct: [id number] Name: HANNAH LIGHT Rep #: [id number] : 1950 65 From: Gregory Aponte MD PCP: Leatha Morrison Status: [facility] DATE OF SERVICE: 11/09/2015 DATE OF [...] re-evaluation. Gregory Aponte MD T: NTS JOB: [id number] 11/23/15 1356 <Electronically signed by Gregory Aponte MD> Date Gregory Aponte MD Cosigner Signature (If Indicated): Date CC: Leatha Morrison; Gregory Aponte Date Dictated: 11/09/151336 Date Transcribed: 11/09/151336 Staple Laster: Signed Leatha Morrison Start: 11-06-2015 End: 11-09-2015 Knee 1 or 2 Views Comments: See Note; NOTES: [facility] Imaging Services [address] [place] [address] Verdana 4d Knee 1 or 2 Views MR#: [id number] Acct: [id number] Name: HANNAH LIGHT Rep #: [id number] : 1950 F 65 From: Jimi Morales MD PCP: Leatha Morrison Status: [facility] Study: Knee 1 or 2 Views Date of Exam: 11/09/15 Exam# [id number] Ordering Dr: Gregory Aponte MD STUDY: X-RAY [...] Jimi Morales MD at 13:21 EDT Tel [phone], Service support [phone], CC: Leatha Morrison; Gregory Aponte Staple Laster: Signed Anahy Leonard Vicente Work Phone: Start: 09-04-2015 End: 09-04-2015 Knee 4 or More Views Comments: See Note; NOTES: [facility] Imaging Services [address] [place] [address] Verdana 4d Knee 4 or More Views MR#: [id number] Acct: [id number] Name: HANNAH LIGHT Rep #: [id number] : 1950 F 65 From: Gregory Elizabeth MD PCP: Leatha Morrison Status: REG CLI Study: Knee 4 or More Views Date of Exam: 09/04/15 Exam# [id number] Ordering Dr: Leatha Morrison STUDY: X-RAY - [...] MD at 16:11 EDT , Service support [phone], RAD/Knee 4 or More Views IMPRESSION: Stable appearance to prosthesis without evidence for acute fracture Electronically Signed: Gregory Elizabeth MD at 16:11 EDT , Service support [phone], CC: Leatha Morrison Staple Laster: Signed Leatha Morrison Work Phone: Start: 05-26-2015 End: 05-26-2015 Operative Report Comments: See Note; NOTES: [facility] Medical Records Department [address] [place] [address] Operative Report MR#: [id number] Acct: [id number] Name: HANNAH LIGHT Rep #: [id number] : 1950 65 From: Gregory Aponte MD PCP: Melissa Arnett MD Status: [facility] DATE OF SERVICE: 05/11/2015 DATE OF [...] reevaluation. Gregory Aponte MD T: NTS JOB: [id number] 05/26/15 1538 <Electronically signed by Gregory Aponet MD> Date Gregory Aponte MD Cosigner Signature (If Indicated): Date CC: Melissa Arnett MD; Gregory Aponte Date Dictated: 05/11/15904 Date Transcribed: 05/11/15904 Staple Laster: Signed Leatha Tamiko Start: 05-11-2015 End: 05-14-2015 Knee 1 or 2 Views Comments: See Note; NOTES: [facility] Imaging Services [address] [place] [address] Verdana 4d Knee 1 or 2 Views MR#: [id number] Acct: [id number] Name: KULDEEPHANNAH Rep #: [id number] : 1950 F 65 From: Jimi Morales MD PCP: Melissa Arnett MD Status: [facility] Study: Knee 1 or 2 Views Date of Exam: 05/11/15 Exam# [id number] Ordering Dr: Gregory Aponte MD STUDY: FLUOROSCOPIC [...] Jimi Morales MD at 15:31 EDT Tel [phone], Service support [phone], RAD/Knee 1 or 2 Views IMPRESSION: Fluoroscopic services provided for a knee injection. Electronically Signed: Jimi Morales MD at 15:31 EDT Tel [phone], Service support [phone], CC: Melissa Arnett MD; Gregory Aponte Staple Laster: Kiley Zhang Work Phone: Start: 05-11-2015 End: 05-13-2015 O.R. Fluoro for C-Arm Comments: See Note; NOTES: [facility] Imaging Services [address] [place] [address] Ely donaldson O.R. Fluoro for C-Arm MR#: [id number] Acct: [id number] Name: HANNAH LIGHT Rep #: [id number] : 1950 F 65 From: Jimi Morales MD PCP: Melissa Arnett MD Status: [facility] Study: O.R. Fluoro for C-Arm Date of Exam: 05/11/15 Exam# [id number] Ordering Dr: Gregory Aponte MD STUDY: FLUOROSCOPIC [...] Jimi Morales MD at 15:31 EDT Tel [phone], Service support [phone], RAD/O.R. Fluoro for C-Arm IMPRESSION: Fluoroscopic services provided for a knee injection. Electronically Signed: Jimi Morales MD at 15:31 EDT Tel [phone], Service support [phone], CC: Melissa Arnett MD; Gregory Aponte Staple Laster: Signed Anahy Leonard Vicente Work Phone: Start: 01-13-2015 End: 01-13-2015 Ecg routine ecg w/least 12 lds w/i&r [MEASUREMENTS ANALYSIS] Date of Test: 01/13/2015 13:53:24; Heart Rate: 69; [place] Interval: 162; QRS: 78; QT Interval: 378; Corrected QT Interval (QTc): 393; P Wave [place]: 34; QRS Wave [place]: 19; T Wave [place]: 39; Blood Pressure: 122/74 [ECG DIAGNOSTIC STATEMENTS] Date of Test: 01/13/2015 13:53:24; Summary: Sinus Rhythm Low voltage in limb leads. ABNORMAL Leatha Morrison Work Phone: Start: 11-10-2014 End: 11-10-2014 Operative Report Comments: See Note; NOTES: [facility] Medical Records Department [address] [place] [address] Operative Report MR#: [id number] Acct: [id number] Name: HANNAH LIGHT Rep #: [id number] : 1950 64 From: Gregory Aponte MD PCP: Melissa Arnett MD Status: [facility] DATE OF SERVICE: 11/04/2014 DATE OF [...] procedure if indicated. Gregory Aponte MD T: [facility] JOB: [id number] 11/10/14 1614 <Electronically signed by Gregory Aponte MD> Date Gregory Aponte MD Cosigner Signature (If Indicated): Date CC: Melissa Arnett MD; Gregory Aponte Date Dictated: 11/04/141705 Date Transcribed: 11/04/141705 Staple Laster: Signed Leatha Morrison Start: 11-05-2014 End: 11-06-2014 Documentation of current medications Kristyn Leblanc MD Start: 11-05-2014 End: 11-13-2014 Hepatic function 2000 panel - Serum or Plasma Kristyn Leblanc MD Start: 11-05-2014 End: 11-13-2014 Lipid 1996 panel - Serum or Plasma Kristyn Leblanc MD Start: 11-04-2014 End: 11-05-2014 Knee 3 Views Comments: See Note; NOTES: [facility] Imaging Services [address] [place] [address] Radiology Report MR#: [id number] Acct: [id number] Name: HANNAH LIGHT Rep #: [id number] : 1950 F 64 From: Sanjeev Conn DO PCP: Melissa Arnett MD Status: [facility] Study: Knee 3 Views Date of Exam: 11/04/14 Exam# [id number] Ordering Dr: Gregory Aponte MD STUDY: X-RAY [...] Sanjeev Conn DO at 16:47 EDT Tel [phone], Service support [phone], RAD/Knee 3 Views IMPRESSION: Right knee injection in the OR. Electronically Signed: Sanjeev Conn DO at 16:47 EDT Tel [phone], Service support [phone], CC: Melissa Arnett MD; Gregory Aponte Staple Laster: Kiley Valle Clarizen Work Phone: Start: 10-23-2014 End: 10-23-2014 Emergency Department Summary Comments: See Note; NOTES: [facility] Medical Records Department [address] [place] [address] Emergency Department Summary MR#: [id number] Acct: [id number] Name: HANNAH LIGHT Rep #: [id number] : 1950 64 From: Chiquita Loaiza MD PCP: Melissa Arnett MD Status: [facility] ER DATE OF SERVICE: 10/18/2014 CHIEF COMPLAINT: [...] plan. Chiquita Loaiza MD T: [facility] JOB: [id number] 10/23/142221 <Electronically signed by Chiquita Loaiza MD> Date Chiquita Loaiza MD Cosigner Signature (If Indicated): Date CC: Melissa Arnett MD Date Dictated: 10/18/1447 Date Transcribed: 10/18/14646 Staple Laster: Signed Leatha Morrison Start: 10-18-2014 End: 10-18-2014 Emergency Department Summary Comments: See Note; NOTES: [facility] Medical Records Department [address] [place] [address] Emergency Department Summary MR#: [id number] Acct: [id number] Name: HANNAH LIGHT Rep #: [id number] : 1950 64 From: Meagan Norman MD PCP: Melissa Arnett MD Status: DEP ER DATE OF SERVICE: 10/18/2014 ADDENDUM This [...] discharged. Meagan Norman MD T: [facility] JOB: [id number] 10/18/14 1127 <Electronically signed by Meagan Norman MD> Date Meagan Norman MD Cosigner Signature (If Indicated): Date CC: Melissa Arnett MD Date Dictated: 10/18/14 1016 Date Transcribed: 10/18/14 1016 Staple Laster: Signed Leatha Morrison Start: 10-18-2014 End: 10-18-2014 Discharge Instruction Comments: See Note; NOTES: [facility] Medical Records Department [address] [place] [address] Discharge Instruction 10/18/14 1011 MR#: [id number] Acct: [id number] Name: HANNAH LIGHT Rep #: [id number] : 1950 64 From: Meagan Norman MD [...] problems, contact your doctor. Call [facility] ([phone]) or report to the closest Emergency Room. Call 911 if necessary. 10/18/14 1014 <Electronically signed by Meagan Norman MD> Date Meagan Norman MD Cosigner Signature (If Indicated): Date CC: Melissa Morrison Start: 10-18-2014 End: 10-18-2014 Soft Tissue Neck WITH Contrast Comments: See Note; NOTES: [facility] Imaging Services [address] [place] [address] CAT Scan Report MR#: [id number] Acct: [id number] Name: HANNAH LIGHT Rep #: [id number] : 1950 F 64 From: Eugenia Gibbs MD PCP: Melissa Arnett MD Status: REG ER Study: Soft Tissue Neck WITH Contrast Date of Exam: 10/18/14 Exam# [id number] Ordering Dr: Chiquita Loaiza MD STUDY: CT [...] FINDINGS: Normal bilateral parotid glands. Normal bilateral char puller spaces. Normal bilateral parapharyngeal spaces. There is [...] MD at 8:26 EDT , Service support [phone], CC: Chiquita Loaiza MD; Melissa Arnett MD Staple Laster: Signed Leatha Morrison Start: 08-18-2014 End: 08-18-2014 Operative Report Comments: See Note; NOTES: [facility] Medical Records Department [address] [place] [address] Operative Report MR#: [id number] Acct: [id number] Name: HANNAH LIGHT Rep #: [id number] : 1950 64 From: Gregory Aponte MD PCP: Melissa Arnett MD Status: [facility] DATE OF SERVICE: 08/12/2014 DATE OF [...] indicated. Gregory Aponte MD T: [facility] JOB: [id number] 08/18/14 0820 <Electronically signed by Gregory Aponte MD> Date Gregory Aponte MD CC: Melissa Arnett MD; Gregory Aponte Date Dictated: 08/12/14 1438 Date Transcribed: 08/12/141437 Staple Laster: Signed Leatha Doshielvialeonard Start: 08-12-2014 End: 08-12-2014 Knee 1 or 2 Views Comments: See Note; NOTES: [facility] Imaging Services [address] [place] [address] Radiology Report MR#: [id number] Acct: [id number] Name: HANNAH LIGHT Rep #: [id number] : 1950 F 64 From: Wallace Langston MD PCP: Melissa Arnett MD Status: [facility] Study: Knee 1 or 2 Views Date of Exam: 08/12/14 Exam# [id number] Ordering Dr: Gregory Aponte MD STUDY: X-RAY [...] MD at 20:13 EDT , Service support [phone], RAD/Knee 1 or 2 Views IMPRESSION: Successful Total right knee arthroplasty. Electronically Signed: Wallace Langston MD at 20:13 EDT , Service support [phone], CC: Melissa Arnett MD; Gregory Aponte Staple Laster: Signed Anahy Valle Clarizen Work Phone: Start: 10-04-2013 End: 10-04-2013 PT Discharge Summary Comments: See Note; NOTES: [facility] Physical Therapy [address] [place], [place] [address] Fax REHABILITATION SERVICES DISCHARGE SUMMARY MR#: [id number] Acct: [id number] Name: HANNAH LIGHT Rep #: [id number] : 1950 63 From: Moreno Escobedo Referring Dr.: Jose Miguel Knapic DO Status: DIS RCR Eval Date: Discharge Date: 09/11/13 DATE OF SERVICE: PHYSICIAN: Dr. Arnett. DIAGNOSIS: Vertigo. DATE OF DISCHARGE: October 03, 2013. Hannah Light was seen in my office for a total of 2 visits. She was seen initially on August 28, 2013, where she had a positive left-sided Hallpike [place] test and was treated with left-sided Johnny maneuver. She returned 2 days later and said she was much better, but not 100 percent better. She was still found to have a positive left-sided Hallpike [place] test of 40-second duration with a delayed [...] due to nonattendance. Moreno Escobedo, PT T: [facility] JOB: [id number] <Electronically signed by Moreno Escobedo > 10/04/13 0645 CC: Signed Leatha Morrison Start: 09-30-2013 End: 09-30-2013 PT Discharge Summary Comments: See Note; NOTES: [facility] Physical Therapy [address] [place] [address] Fax REHABILITATION SERVICES DISCHARGE SUMMARY MR#: [id number] Acct: [id number] Name: HANNAH LIGHT Rep #: [id number] : 1950 63 From: Wallace Lewis Referring : Jose Miguel Schmid DO Status: DIS RCR Eval Date: Discharge Date: 09/19/13 DATE OF SERVICE: REFERRING PHYSICIAN: Dr. Jose Miguel Schmid. Hannah Light was evaluated at [facility] on the date of July [...] Therefore, this patient is officially discharged from [facility] with my personal recommendation for her to continue independently with her home exercise program to prevent future episodes of right knee pain. Wallace Lewis, PT T: [facility] JOB: [id number] <Electronically signed by Wallace Lewis > 09/30/13 1156 CC: Signed Leatha Morrison Start: 08-29-2013 End: 08-29-2013 Inital Evaluation - PT Comments: See Note; NOTES: [facility] 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 With Hallpike Lyla screening, she has what appears to be some very slight positive right Hallpike [place] difficult to tell which way the nystagmus goes, but left Hallpike [place] is obviously positive with an upward torsional [...] therapy. Moreno Escobedo, PT T: [facility] JOB: [id number] <Electronically signed by Moreno Escobedo > 08/29/13 1103 CC: Signed For Medicare only, by signing this I certify the plan of care. __ Physicians Signature Date Leatha Morrison Start: 08-27-2013 End: 08-27-2013 PT Discharge Summary Comments: See Note; NOTES: [facility] [address] [place] [address]. [address] [place] [address] Fax REHABILITATION SERVICES DISCHARGE SUMMARY MR#: [id number] Acct: [id number] Name: HANNAH LIGHT Rep #: [id number] : 1950 63 From: Radha Staton Referring DrTeri: Jose Miguel Schmid DO Status: REG RCR [...] to our clinic. Radha Staton, PT T: [facility] JOB: [id number] <Electronically signed by Radha Staton > 08/27/13 1735 CC: Signed Leatha Morrison Start: 07-31-2013 End: 07-31-2013 Operative Report Comments: See Note; NOTES: [facility] Medical Records Department [address] [place] [address] Operative Report MR#: [id number] Acct: [id number] Name: LIGHTHANNAH BUCIO Rep #: [id number] : 1950 63 From: Jose Miguel Schmid DO PCP: Melissa Arnett MD Status: REG [facility] DATE OF SERVICE: 07/31/2013 DATE OF SERVICE: July 31, 2013 OPERATION: Diagnostic and operative arthroscopy, right knee, with arthroscopic subtotal synovectomy and lysis of adhesions. PREOPERATIVE DIAGNOSIS: Painful scar tissue status post right total knee replacement arthroplasty. POSTOPERATIVE DIAGNOSIS: Painful scar tissue status post right total knee replacement arthroplasty. SURGEON: Jose Miguel Schmid D.O. 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 ANESTHESIA: General. ANESTHESIOLOGIST: Jose [...] satisfactory condition. Jose Miguel Schmid DO T: [facility] JOB: [id number] 07/31/13 1448 <Electronically signed by Jose Miguel Schmid DO> Date Jose Miguel Schmid DO CC: Melissa Arnett MD; Jose Miguel Schmid DO Date Dictated: 07/31/131336 Date Transcribed: 07/31/131336 Staple Laster: Signed Leatha Morrison Start: 07-29-2013 End: 07-29-2013 History & Physical Examination Comments: See Note; NOTES: [facility] Medical Records Department [address] [place] [address] History and Physical 07/24/13 0739 MR#: [id number] Acct: [id number] Name: HANNAH LIGHT Rep #: [id number] : 1950 63 From: Cleveland Palmer PA-C [...] is with 2 children. 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 Denies ever using tobacco products, alcohol, or illicit drugs. ALLERGIES: THE PATIENT STATES SHE IS ALLERGIC TO ALBUTEROL AND LIDODERM. MEDICATIONS: She is on multiple medications. For a complete list of the patient's presently prescribed medications, [id number] medications and supplements, please see the medication [...] permit form. PRETTY Hightower T: [facility] JOB: [id number] 07/29/1312 <Electronically signed by Cleveland Palmer PA-C> Date: Time: Cleveland Palmer PA-C CC: Melissa Arnett MD; Cleveland OLSEN Date Dictated: 07/24/13738 Date Transcribed: 07/24/13738 Staple Laster: Signed ____ I have re-examined the patient. There are no clinical changes since date of exam. ____ See Progress Notes for Changes ____ Dictated on Admission Date: Time: Signature: Leatha Morrison Start: 07-18-2013 End: 07-18-2013 Inital Evaluation - PT Comments: See Note; NOTES: [facility] Physical Therapy [employer] [facility] [place], [place] [address] Fax REHABILITATION SERVICES INITIAL EVALUATION MR#: [id number] Acct: [id number] Name: HANNAH LIGHT Rep #: [id number] : 1950 63 From: Wallace Lewis Referring Dr.: Jose Miguel Schmid DO Status: REG RCR Insurance: [facility] [employer] Eval Date: DATE OF SERVICE: REFERRING PHYSICIAN: Dr. Jose Miguel Schmid. 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 The patient reports that she has sleep [...] approximately 1-2 weeks. Wallace Lewis, PT T: [facility] JOB: [id number] <Electronically signed by Wallace Lewis > 07/18/13 1023 CC: Signed For Medicare only, by signing this I certify the plan of care. __ Physicians Signature Date Anahy Valle Fast Work Phone: Start: 06-21-2013 End: 06-21-2013 Inital Evaluation - PT Comments: See Note; NOTES: [facility] Physical Therapy [address] [place] [address] Fax REHABILITATION SERVICES INITIAL EVALUATION MR#: [id number] Acct: [id number] Name: HANNAH LIGHT Rep #: [id number] : 1950 63 From: Radha Staton Referring Dr.: Temo Alvarez MD Status: DIS RCR Insurance: [facility] [employer] Eval Date: DATE OF SERVICE: REFERRING [...] She did have her hip replaced at [facility] the last time with Dr. Jordan. [...] needed. Radha Staton, PT T: [facility] JOB: [id number] <Electronically signed by Radha Staton > 06/21/13 1426 CC: Signed For Medicare only, by signing this I certify the plan of care. __ Physicians Signature Date Leatha Morrison Work Phone: Start: 06-18-2013 End: 06-23-2013 CBC W Auto Differential panel - Blood Silvia J Signs Start: 05-14-2013 End: 06-01-2013 CBC W Auto Differential panel - Blood Silvia J Signs Start: 03-08-2013 End: 03-08-2013 Ecg routine ecg w/least 12 lds w/i&r Kristyn Leblanc MD Start: 03-08-2013 End: 03-08-2013 Follow Up Appt 6 months Kristyn Leblanc MD Start: 03-08-2013 End: 03-08-2013 PFM Kristyn Leblanc MD Start: 01-22-2013 End: 01-22-2013 Extremity Lower without Contra Comments: See Note; NOTES: [facility] Imaging Services [address] [place] [address] CAT Scan Report MR#: [id number] Acct: [id number] Name: HANNAH LIGHT Rep #: [id number] : 1950 F 63 From: Venkat Min MD PCP: Melissa Arnett MD Status: REG CLI Study: Extremity Lower without Contra Date of Exam: 01/22/13 Exam# [id number] Ordering Dr: Leatha Morrison STUDY: CT RIGHT [...] M.D. at 18:13 EST , Service support [phone], CC: Leatha Morrison; Melissa Arnett MD Staple Laster: Signed Leatha Morrison Work Phone: Start: 07-11-2012 End: 07-11-2012 Follow Up Appt 6 months Kristyn Leblanc MD Start: 07-11-2012 End: 07-11-2012 PF Kristyn Leblanc MD End: 11-17-2008 Appendectomy Appendectomy Bonnie Moise RN Appendectomy Appendectomy Leatha Juanchoa Appendectomy Leatha Morrison Work Phone: Cholecystectomy Nick Barrow Cholecystectomy Briana Gravi us Cholecystectomy Nick Barrow Cholecystectomy Nick Barrow Cholecystectomy Nick Barrow Cholecystectomy Nick Kumar Cholecystectomy Cholecystectomy Leatha Glendaes a End: 11-17-2008 Cholecystectomy Cholecystectomy Bonnie Moise RN Cholecystectomy Leatha Morrison Work Phone: heel spur surgery Crystal Loc klear heel spur surgery Nick Smi th heel spur surgery Briana Gra vius heel spur surgery Nick Smi th heel spur surgery Nick Smi th heel spur surgery Nick Smi th heel spur surgery Nick Mcnulty is Laparoscopic cholecystectomy Crystal Madina left knee arthroscopy Crystal Roalear left knee arthroscopy Nick Barrow left knee arthroscopy Briana Gravius left knee arthroscopy Nick Barrow left knee arthroscopy Nick Barrow left knee arthroscopy Nick Barrow left knee arthroscopy Nick Kumar Other bilateral liga tion and division of fallopian tubes Crystal Madina Other bilateral liga tion and division of fallopian tubes Nick Barrow Other bilateral liga tion and division of fallopian tubes Briana Desireius Other bilateral liga tion and division of [...] tunnel Mor huan José right knee Crystal Roalear Comment on above: Dr. Heard--nerve caud. right knee Nick Barrow Comment on above: Dr. Heard--nerve caud. right knee Briana Desiresurya Comment on above: Dr. Heard--nerve caud. right knee Nick Barrow Comment on above: Dr. Heard--nerve caud. right knee Nick Barrow Comment on above: Dr. Heard--nerve caud. right knee Nick Barrow Comment on above: Dr. Heard--nerve caud. right knee Nick Kumar Comment on above: Dr. Heard--nerve caud. Screening for osteoporosis Screening for osteoporosis (Renamed from Encounter for screening for osteoporosis) Leatha Morrison Yuki Escobedo SUPERVISOR DOG LICENSE OFFICER Work Phone: Devyn ROJAS Plan of Treatment Date Care Activity Detail Author Start: 04-02-2024 Patient discharge [facility] Start: 04-01-2024 Following clinical pathway protocol [facility] Start: 04-01-2024 Assessment of risk of venous thromboembolism [facility] Start: 04-01-2024 Cardiac monitoring [facility] Start: 04-01-2024 Catheterization of vein [facility] Start: 04-01-2024 Consultation [facility] Start: 04-01-2024 Continuous pulse oximetry [facility] Start: 04-01-2024 Elevation of head of bed [facility] Start: 04-01-2024 Exercises [facility] Start: 04-01-2024 Insertion of catheter into peripheral vein [facility] Start: 04-01-2024 Measuring intake and output [facility] Start: 04-01-2024 Notification of physician [facility] Start: 04-01-2024 Oxygen therapy [facility] Start: 04-01-2024 Patient referral to dietitian [facility] Start: 04-01-2024 Providing care according to standard [facility] Start: 04-01-2024 Provision of activity privileges [facility] Start: 04-01-2024 Referral to occupational therapist [facility] Start: 04-01-2024 Referral to service [facility] Start: 04-01-2024 Speech therapy assessment [facility] Start: 04-01-2024 Telemedicine consultation with patient [facility] Start: 04-01-2024 Tobacco use cessation education [facility] Start: 04-01-2024 End: 04-01-2024 [facility] Start: 04-01-2024 Vital signs measurements [facility] Start: 04-01-2024 Admission procedure [facility] Start: 04-01-2024 [facility] Start: 06-15-2023 Patient discharge [facility] Start: 06-14-2023 Following clinical pathway protocol [facility] Start: 06-14-2023 Oxygen therapy [facility] Start: 06-14-2023 Admission procedure [facility] Start: 06-14-2023 Provision of overbed trapeze [facility] Start: 06-14-2023 Recommendation to continue with treatment [facility] Start: 06-14-2023 Ambulation therapy management [facility] Start: 06-14-2023 Application of device [facility] Start: 06-14-2023 Application of elastic bandage [facility] Start: 06-14-2023 Assessment of risk of venous thromboembolism [facility] Start: 06-14-2023 Catheterization of vein [facility] Start: 06-14-2023 Exercises [facility] Start: 06-14-2023 Following clinical pathway protocol [facility] Start: 06-14-2023 Incentive spirometry [facility] Start: 06-14-2023 Introduction of urinary catheter [facility] Start: 06-14-2023 Measuring intake and output [facility] Start: 06-14-2023 Neurovascular assessment [facility] Start: 06-14-2023 Patient education [facility] Start: 06-14-2023 Procedure discontinued [facility] Start: 06-14-2023 Provision of activity privileges [facility] Start: 06-14-2023 Referral to occupational therapist [facility] Start: 06-14-2023 Referral to service [facility] Start: 06-14-2023 Vital signs measurements [facility] Start: 06-14-2023 Wound care [facility] Start: 06-14-2023 [facility] Start: 06-14-2023 Admission procedure [facility] Start: 06-14-2023 [facility] Start: 12-20-2022 Provider Instructions for Treatment [facility] [...] 08-13-2019 TSH Qn TSH (THYROID STIMULATING HORMONE) (30499) [facility] Work Phone: Start: 08-13-2019 [...] Phone: Start: 10-25-2018 Throat culture THROAT CULTURE (50651) [facility] Work Phone: Start: 07-18-2018 Cul bact xcpt urine blood/stool aerobic isol Throat Culture (81701) [facility] Work Phone: Start: 06-19-2018 Procedure Education [facility] Work Phone: Start: 06-19-2018 Provider Instructions for Treatment [facility] Work Phone: Start: 06-19-2018 Iaadiadoo streptococcus group a [facility] Work Phone: Start: 06-19-2018 S. pyogenes Ag IA Ql (Unsp spec) Rapid Strep Test, Office (72535) [facility] Work Phone: Start: 11-15-2017 25 hydroxy includes fractions if performed [facility] Work Phone: Start: 11-15-2017 Assay of thyroid stimulating hormone tsh [facility]; [facility] Work Phone: Start: 11-15-2017 Thyrotropin Qn TSH (THYROID STIMULATING HORMONE) (17175) [facility] Work Phone: Start: 11-15-2017 Procedure Education [facility] Work Phone: Start: 11-15-2017 Provider Instructions for Treatment [facility] Work Phone: Start: 09-04-2017 End: 09-04-2017 Patient encounter procedure Appointment [facility] Work Phone: Start: 12-19-2016 End: 12-19-2016 Patient encounter procedure Appointment [facility] Work Phone: Start: 12-19-2016 End: 12-19-2016 Follow Up Appt 6 months Follow Up Appt 6 months [facility] Work Phone: Start: 12-19-2016 End: 12-19-2016 Nuclear stress test -Lexiscan Nuclear stress test -Lexiscan [facility] Work Phone: Start: 12-19-2016 End: 12-19-2016 PFM PFM [facility] Work Phone: Start: 11-15-2016 Procedure [...] 11-15-2016 Thyrotropin Qn TSH (THYROID STIMULATING HORMONE) (51537) [facility] Work Phone: Comment on above: Do in Oct 2016 Start: 11-16-2015 Provider Instructions for Treatment [facility] Work Phone: Start: 09-07-2015 C-reactive protein [facility] Work Phone: Start: 09-07-2015 CRP mass conc C-REACTIVE PROTEIN (03935) [facility] Work Phone: Start: 09-07-2015 Assay of thyroid stimulating hormone tsh [facility]; [facility] Work Phone: Start: 09-07-2015 Thyrotropin Qn TSH (THYROID STIMULATING HORMONE) (35612) [facility] Work Phone: Start: 09-04-2015 Blood count complete auto&auto difrntl wbc [facility] Work Phone: Start: 09-04-2015 C-reactive protein [facility] Work Phone: Start: 09-04-2015 CRP mass conc C-Reactive Protein (81025) [facility] Work Phone: Start: 09-04-2015 Sedimentation rate rbc non-automated [facility] Work Phone: Start: 09-04-2015 Cobalamin (Vitamin B12) mass conc VITAMIN B-12 (CYANOCOBALAMIN) (88445) [facility] Work Phone: Start: 09-04-2015 Cyanocobalamin vitamin b-12 [facility]; [facility] Work Phone: Start: 09-04-2015 25 hydroxy includes fractions if performed [facility] Work Phone: Start: 09-04-2015 Assay of iron [facility]; [facility] Work Phone: Start: 09-04-2015 Iron mass conc IRON (12779) [facility] Work Phone: Start: 09-04-2015 Assay of thyroid stimulating hormone tsh [facility]; [facility] Work Phone: Start: 09-04-2015 Thyrotropin Qn TSH (THYROID STIMULATING HORMONE) (95839) [facility] Work Phone: Start: 09-04-2015 Procedure Education [facility] Work Phone: Start: 02-23-2015 Provider Instructions for Treatment [facility] Work Phone: Start: 02-12-2015 End: 11-13-2014 Hepatic function 2000 panel - Serum or Plasma *Hepatic Function Panel [facility] Work Phone: Start: 02-12-2015 End: 11-13-2014 Lipid 1996 panel - Serum or Plasma *Lipid Profile CC PCP [facility] Work Phone: Start: 01-13-2015 Assay of thyroid stimulating hormone tsh [facility]; [facility] Work Phone: Start: 01-13-2015 Thyrotropin Qn TSH (THYROID STIMULATING HORMONE) (80529) [facility] Work Phone: Start: 01-13-2015 Assay of troponin quantitative [facility]; [facility] Work Phone: Start: 01-13-2015 Troponin I.cardiac mass conc Troponin I (97607) [facility] Work Phone: Start: 01-13-2015 Creatine kinase mb fraction only [facility] Work Phone: Start: 01-13-2015 Creatine kinase total [facility] Work Phone: Start: 01-13-2015 Assay of iron [facility]; [facility] Work Phone: Start: 01-13-2015 Iron mass conc IRON (53727) [facility] Work Phone: Start: 01-13-2015 [...] - Serum or Plasma *Hepatic Function Panel [facility] Work Phone: Start: 11-05-2014 End: 11-13-2014 Lipid 1996 panel - Serum or Plasma *Lipid Profile CC PCP [facility] Work Phone: Start: 11-05-2014 End: 11-05-2014 PFM PFM [facility] Work Phone: Start: 10-14-2014 Procedure [...] 08-27-2013 Thyrotropin Qn TSH (THYROID STIMULATING HORMONE) (83813) [facility] Work Phone: Comment on above: to be drawn end of sep 2013 Start: 08-27-2013 25 hydroxy includes fractions if performed [facility] Work Phone: Comment on above: to be drawn end Sep 2013 Start: 08-26-2013 Blood count manual cell count each [facility] Work Phone: Start: 06-18-2013 End: 06-23-2013 CBC W Auto Differential panel - Blood *CBC with Differential [facility] Work Phone: Start: 06-13-2013 End: 06-13-2013 CBC W Auto Differential panel - Blood *CBC with Differential [facility] Work Phone: Start: 06-13-2013 End: 06-13-2013 Erythrocyte sedimentation rate *Sedimentation Rate (ESR) [facility] Work Phone: Start: 05-14-2013 End: 06-01-2013 CBC W Auto Differential panel - Blood *CBC with Differential [facility] Work Phone: Start: 03-14-2013 Culture bct isol&prsmptv id isolate ea urine [facility] Work Phone: Comment on above: pls add to urine you already have in the lab Start: 03-11-2013 Assay of thyroid stimulating hormone tsh [facility]; [facility] Work Phone: Start: 03-11-2013 Thyrotropin Qn TSH (37046) [facility] Work Phone: Start: 03-11-2013 Blood count complete automated [facility] Work Phone: Start: 03-11-2013 Comprehensive metabolic panel [facility] Work Phone: Start: 03-08-2013 End: 03-08-2013 Ecg routine ecg w/least 12 lds w/i&r EKG (In office) [facility] Work Phone: Start: 03-08-2013 End: 03-08-2013 Follow Up Appt 6 months Follow Up Appt 6 months [facility] Work Phone: Start: 03-08-2013 End: 03-08-2013 PFM PFM [facility] Work Phone: Start: 01-21-2013 Provider [...] 6 months Follow Up Appt 6 months [facility] Work Phone: Start: 07-11-2012 [...] Work Phone: Start: 07-09-2012 Thyrotropin Qn TSH (25795) [facility] Work Phone: Start: 05-31-2012 Patient Education [facility] Work Phone: Start: 05-31-2012 Provider Instructions for Treatment [facility] Work Phone: Start: 05-31-2012 Leukocyte assmt fecal qual/semiquantitative [facility] Work Phone: Start: 05-31-2012 Culture bacterial any source anaerobic iso&id [facility] Work Phone: Start: 05-21-2012 Potassium molar conc POTASSIUM SERUM (59290) [facility] Work Phone: Start: 05-21-2012 Potassium serum plasma/whole blood [facility]; [facility] Work Phone: Start: 05-18-2012 Potassium molar conc POTASSIUM SERUM (46585) [facility] Work Phone: Comment on [...] Start: 05-18-2012 Potassium molar conc POTASSIUM SERUM (15961) [facility] Work Phone: Comment on [...] Work Phone: Start: 11-01-2011 Thyrotropin Qn TSH (07341) [facility] Work Phone: Start: 11-01-2011 [...] Work Phone: Start: 07-28-2011 Thyrotropin Qn TSH (26339) [facility] Work Phone: Start: 07-28-2011 Microsomal antibodies each [facility] Work Phone: Start: 07-28-2011 Protein electrophoretic fractj&quantj serum [facility]; [facility] Work Phone: Start: 07-28-2011 Protein mass conc Serum Protein Electrophoresis (SPEP) (19998) [facility] Work Phone: Start: 07-28-2011 Blood count complete automated [facility] Work Phone: Start: 07-28-2011 Sedimentation rate rbc non-automated [facility] Work Phone: Start: 07-28-2011 Antinuclear antibodies pancho [facility]; [facility] Work Phone: Start: 07-28-2011 Nuclear Ab IF titer (S) PANCHO (ANTINUCLEAR ANTIBODY) (81696) [facility] Work Phone: Start: 07-20-2011 Provider Instructions for Treatment [facility] Work Phone: Start: 07-15-2011 Potassium molar conc Potassium Serum (10174) [facility] Work Phone: Start: 07-15-2011 Potassium serum plasma/whole blood [facility]; [facility] Work Phone: Start: 07-15-2011 Potassium molar conc Potassium Serum (37499) [facility] Work Phone: Comment on [...] Phone: Start: 03-29-2011 End: 03-29-2011 PT-Orthotics PT-Orthotics [facility] Work Phone: Start: 02-25-2011 25 hydroxy includes fractions if performed [facility] Work Phone: Start: 02-07-2011 Provider Instructions for Treatment [facility] Work Phone: Start: 01-11-2011 Hemoglobin A1c/Hemoglobin.total mass fraction (Bld) Hemoglobin Glyclated (HGB A1C) (30513) [facility] Work Phone: Start: 01-11-2011 [...] Work Phone: Start: 01-11-2011 Thyrotropin Qn TSH (21469) [facility] Work Phone: Start: 10-07-2010 Assay of thyroid stimulating hormone tsh [facility]; [facility] Work Phone: Start: 10-07-2010 Thyrotropin Qn TSH (51324) [facility] Work Phone: Start: 10-07-2010 Provider Instructions for Treatment [facility] Work Phone: Start: 10-07-2010 Assay of thyroid stimulating hormone tsh [facility]; [facility] Work Phone: Start: 10-07-2010 Thyrotropin Qn TSH (THYROID STIMULATING HORMONE) (51687) [facility] Work Phone: Start: 06-08-2010 [...] Protein mass conc LIPOPROTEIN, BLD, BY NMR (09455) [facility] Work Phone: Comment on above: recheck in 3 months Start: 12-22-2009 Assay of thyroid stimulating hormone tsh [facility]; [facility] Work Phone: Start: 12-22-2009 Thyrotropin Qn TSH (93269) [facility] Work Phone: Start: 12-22-2009 Assay of free thyroxine [facility]; [facility] Work Phone: Start: 12-22-2009 T4 free mass conc T4, FREE (THYROXINE) (02151) [facility] Work Phone: Start: 12-22-2009 Assay of triiodothyronine t3 free [facility]; [facility] Work Phone: Start: 12-22-2009 T3 free mass conc T3, FREE (TRIDOTHYRONINE) (53061) [facility] Work Phone: Start: 12-22-2009 Blood count manual cell count each [facility] Work Phone: Start: 12-22-2009 Comprehensive metabolic panel [facility] Work Phone: Start: 12-22-2009 Lipoprotein blood rekha numbers & subclasses [facility]; [facility] Work Phone: Start: 12-22-2009 Protein mass conc LIPOPROTEIN, BLD, BY NMR (28394) [facility] Work Phone: Start: 07-21-2009 Provider Instructions for Treatment [facility] Work Phone: Start: 11-04-2008 Provider Instructions for Treatment [facility] Work Phone: Start: 11-04-2008 Assay of thyroid stimulating hormone tsh [facility]; [facility] Work Phone: Start: 11-04-2008 Thyrotropin Qn TSH (73040) [facility] Work Phone: Start: 11-04-2008 Lipid panel [facility] Work Phone: Start: 11-04-2008 Lipoprotein blood rekha numbers & subclasses [facility]; [facility] Work Phone: Start: 11-04-2008 Protein mass conc LIPOPROTEIN, BLD, BY NMR (36021) [facility] Work Phone: Start: 10-29-2008 Assay of thyroid stimulating hormone tsh [facility]; [facility] Work Phone: Start: 10-29-2008 Thyrotropin Qn TSH (06658) [facility] Work Phone: Start: 10-29-2008 [...] Protein mass conc LIPOPROTEIN, BLD, BY NMR (04361) [facility] Work Phone: Start: 10-29-2008 [...] (Vitamin B12) mass conc VITAMIN B-12 (CYANOCOBALAMIN) (76207) [facility] Work Phone: Start: 04-18-2007 CRP mass conc C-REACTIVE PROTEIN (21159) [facility] Work Phone: Start: 04-18-2007 Cyanocobalamin vitamin b-12 [facility]; [facility] Work Phone: Start: 04-18-2007 Nuclear Ab IF titer (S) PANCHO (ANTINUCLEAR ANTIBODY) (88409) [facility] Work Phone: Start: 04-18-2007 Rheumatoid factor quantitative [facility] Work Phone: Start: 04-18-2007 Sedimentation rate rbc non-automated [facility] Work Phone: Start: 04-18-2007 Thyrotropin Qn TSH (27572) [facility] Work Phone: Start: 01-23-2007 Basic metabolic panel calcium total [facility] Work Phone: Comment on above: non fasting Start: 01-23-2007 Glucose mass conc Glucose, PP/2 Hour (78299) [facility] Work Phone: Comment on above: 75 gm Start: 01-23-2007 Glucose quantitative blood xcpt reagent strip [facility] Work Phone: Comment on above: 75 gm Start: 01-23-2007 Assay of thyroid stimulating hormone tsh [facility]; [facility] Work Phone: Start: 01-23-2007 Thyrotropin Qn TSH (88390) [facility] Work Phone: Start: 12-21-2006 Patient Education [facility] Work Phone: Start: 12-21-2006 Provider Instructions for Treatment [facility] Work Phone: Start: 12-21-2006 Assay of thyroid stimulating hormone tsh [facility]; [facility] Work Phone: Start: 12-21-2006 Thyrotropin Qn TSH (61708) [facility] Work Phone: Start: 12-21-2006 [...] Ql (Unsp spec) Rapid Strep Test, Office (24452) [facility] Work Phone: Start: 09-05-2006 Provider Instructions for Treatment [facility] Work Phone: Start: 10-27-2005 Provider Instructions for Treatment [facility] Work Phone: Patient referral [facility] Work Phone: [facility] Work Phone: [...] Work Phone: [facility] Work Phone: [facility] Work Phone: [facility] [...] Immunizations Immunization Date Immunization Notes Care Provider [facility] 11-16-2023 influenza, seasonal, injectable, preservative free Mayra FERNANDEZ Work Phone: [facility] 12-08-2022 influenza, injectabl e, quadrivalent, preservative free [facility] 10-25-2022 tetanus toxoid, reduced diphtheria toxoid, and acellular pertussis vaccine, adsorbed [facility] 11-19-2021 influenza, injectabl e, quadrivalent, preservative free [facility] 11-19-2021 influenza, seasonal, injectable [facility] 11-25-2020 influenza, injectabl e, quadrivalent, preservative free [facility] 11-25-2020 influenza, seasonal, injectable [facility] 03-25-2020 [facility] 02-26-2020 [facility]Modern[facility] 11-19-2019 influenza, injectabl e, quadrivalent, preservative free [facility] 11-19-2019 influenza, seasonal, injectable [facility] 11-15-2018 influenza, injectabl e, quadrivalent, preservative free [facility] 11-15-2018 influenza, seasonal, injectable [facility] 12-04-2017 influenza, injectabl e, quadrivalent, preservative free [facility] 12-04-2017 influenza, seasonal, injectable [facility] 11-16-2016 influenza, injectabl e, quadrivalent, preservative free [facility] 11-16-2016 influenza, seasonal, injectable [facility] 11-19-2015 influenza, injectabl e, quadrivalent, preservative free [facility] 11-19-2015 influenza, seasonal, injectable [facility] 11-19-2014 influenza, injectabl e, quadrivalent, preservative free [facility] 11-19-2014 influenza, seasonal, injectable [facility] 11-06-2013 influenza, injectabl e, quadrivalent, preservative free [facility] 11-06-2013 influenza, seasonal, [facility] 02-28-2013 Influenza virus vaccine [facility] 02-28-2013 influenza, seasonal, injectable, preservative free Leatha Morrison [facility] [employer] [facility] Work Phone: Payers Date Payer Category Payer Self-pay [id number] 2022 Unknown [id number] 2016 Unknown [id number] 2006 Unknown [id number] 1950 Unknown [id number] 2.16.84 [id number] Unknown Unknown [id number] 2.16.8 40.1.701884.3.579.2.462 Unknown [id number] 2.16.8 40.1.990871.3.579.2.462 Unknown [id number] 2.16.8 40.1.758896.3.579.2.462 Unknown [id number] 2.16.8 40.1.208265.3.579.2.462 Unknown [id number] 2.16.8 40.1.489178.3.579.2.462 Unknown [id number] 2.16.8 40.1.024470.3.579.2.462 Unknown [id number] 2.16.8 40.1.947033.3.579.2.462 Unknown [id number] 2.16.8 40.1.317019.3.579.2.462 Unknown [id number] 2.16.8 40.1.804155.3.579.2.462 Unknown [id number] 2.16.8 40.1.292805.3.579.2.462 Unknown [id number] 2.16.8 40.1.980099.3.579.2.462 Unknown [id number] 2.16.8 40.1.084935.3.579.2.462 Unknown [id number] 2.16.8 40.1.065566.3.579.2.462 Unknown [id number] 2.16.8 40.1.526743.3.579.2.462 Unknown [id number] 2.16.8 40.1.734946.3.579.2.462 Unknown [id number] 2.16.8 40.1.204073.3.579.2.462 Unknown [id number] 2.16.8 40.1.806807.3.579.2.462 Unknown [id number] 2.16.8 40.1.981230.3.579.2.462 Unknown [id number] 2.16.8 40.1.990560.3.579.2.462 Unknown [id number] 2.16.8 40.1.755211.3.579.2.462 Unknown [id number] 2.16.8 40.1.891547.3.579.2.462 Social History Date Type Detail Facility Caffeine [...] Start: 10-10-2020 End: 05-31-2023 Tobacco smoking status [facility] Unknown if ever smoked [facility] Start: 10-10-2020 None [facility] Start: 10-10-2020 Homeless [facility] Start: 10-10-2020 Non-smoker [facility] Start: 1950 Sex Assigned At Female W [facility] Part-time. [facility]; [facility] Work Phone: Start: 04-02-2024 Tobacco smoking status NHIS Ex-smoker (finding) [facility] Start: 04-02-2024 Tobacco Use Tobacco Use [facility] Medical Equipment Procedure Code Equipment Code Equipment Origin al Text Equipment Identifier Dates Revision, total arthroplasty, knee, with polyethylene liner replacement ([id number]) Tibial insert ([id number] Start: 06-14-2023 Goals Date Patient Goal Desired Activity /State Functional Status Date Assessment Result Facility 04-02-2024 Functional status Patient Activity Chair [facility] Work Phone: 04-02-2024 Functional status Standby Assist [facility] Work Phone: 06-15-2023 Functional status Ambulates [facility] Work Phone: Mental Status Date Assessment Result Facility 04-02-2024 Cognitive function Voice[facility]Name [facility] Work Phone: 06-15-2023 Cognitive function Level Of Cons ciousness Awake;Alert;Appropriate;Follow s Commands [facility] Work Phone: 06-15-2023 Cognitive function Voice[facility]Name [facility] Work Phone: 10-25-2022 Cognitive function Voice[facility]Name [facility] Work Phone: Clinical Notes 12-19-2016 to 04-02-2024 Note Date & Type Note Facility 04-02-2024 Note [facility] Medical Records Department [address] [place] [address] Discharge Summary 04/02/24 1618 MR#: [id number] Acct: [id number] Name: HANNAH LIGHT Rep #: [id number] : 1950 74 From: Moreno Moody DO PCP: REBECCA Wallace Status:ADM SHELTON Location: [place] [address] Providers Date of Admission: 04/01/24 Primary Care Physician: REBECCA Wallace Consultations 04/01/24 18:49 Consult: Tele-Neurology Routine Consulting [...] to migraines that she is currently having. Associate Director Of Biostatistics give her a dose of dexamethasone which [...] levothyroxine 125 mcg capsule 187.5 mcg PO . THYROID 05/31/23 levothyroxine 125 mcg tablet 125 [...] % (Auto) 50.0, Lymph % (Auto) 37.2, Leslie % (Auto) 10.6 H, Eos % (Auto) [...] 6.0 L, Albumin (more content not included)... [facility] 03-14-2024 Evaluation note Diagnosis Onset Date Resolution Left shoulder pain acute y 2024 3:11pm Primary osteoarthritis, left shoulder acute March 14 3:11pm NOAH (acute kidney injury) resolved April 01, 2 025 3:23pm Vertigo resolved April 01, 2024 3:23pm Occipital stroke deleted April 01, 2024 3:23pm Dyslipidemia chronic April 26, 2 025 3:24pm Hypertension chronic April 26, 2 025 3:24pm Syncope chronic April 26 3:24pm [facility] Work Phone: 1(848) 952-978601-13-2025 Evaluation note* Diagnosis Onset Date Resolution Status Admit Date Left shoulder pain acute 2024 2:43pm Primary osteoarthritis, left shoulder acute March 04 2:43pm Left shoulder pain acute y 2024 3:11pm Primary osteoarthritis, left shoulder acute March 14 3:11pm NOAH (acute kidney injury) resolved April 01, 2024 3:23pm Vertigo resolved April 01, 2024 3:23pm Occipital stroke deleted April 01, 2024 3:23pm Dyslipidemia chronic April 26, 2 025 3:24pm Hypertension chronic April 26, 2 025 3:24pm Syncope chronic April 26 3:24pm [facility] Work Phone: 1(928) 983-504304-25-2024 Discharge summary Author Levi Marti [facility] June 15, 2023 9:06am Note Date/Time June 15, 2023 8:5 9am [facility] Medical Records Department [address] [place] [address] Instructions for Home/Discharge Instructions 06/15/23 0858 MR#: [id number] Acct: [id number] Name: HANNAH LIGHT Rep #:[id number] : 1950 73 From: Levi OLSEN PA-C PCP: REBECCA Wallace Status:ADM I N Discharge Instructions Diet Discharge [...] June 19, 2023) Additional Dressing/Incision Instructions:: Follow [facility] Post-op Instructions. Once postoperative dressing has [...] - Levi Marti PA-C [Med Staff - [facility] Practice Prof] - 06/28/23 3:00 pm Disposition Disposition (needs filled in before D/C Order can be placed): Home, Self Care 06/15/23905<Electronically signed by Levi OLSEN PA-C>Levi OLSEN PA-C CC: REBECCA Escobedo ~ Signed [facility] Work Phone: 1(628) 475-555604-25-2024 Progress note Author Levi Marti [facility] June 15, 2023 8:58am Note Date/Time June 15, 2023 8:5 8am [facility] Medical Records Department [address] [place] [address] Progress Note - Orthopedic 06/15/23 0854 MR#: [id number] Acct: [id number] Name: HANNAH LIGHT Rep #:[id number] : 1950 73 From: Levi BENNETTC PCP: Mayra Escobedo NP-C Status:ADM I N Location: [place] [address] Subjective Subjective The patient was sitting in bed upon examination. Patient denies any chest pain,shortness of breath, dizziness, lightheadedness, nausea or vomiting, or calf pain. Pain is controlled on medications. No adverse overnight events. Patientshannon is doing very well this morning. She [...] She will like to be seen at [facility]. I will have case management discussed with patient and schedule appropriate appointment. She has been instructed to continue those exercises through the weekend and plan for outpatient therapy early next week. We discussed postoperative dressing and removal. She would like all her medications E scribed to [facility] pharmacy. She will follow-up per postoperative instructions. She was instructed to contact her office with any complications postoperatively. She voiced understanding andasked all questions. I have reviewed the [place] Automated Rx Reporting System (OARRS) report for [...] Cosigner Signature (if applicable): CC: ~ Signed [facility] Work Phone: 1(825) 761-127704-24-2024 Procedure [facility] 06-14-2023 History and physical note Author Brennon Ramirez [facility] June 14, 2023 11:32am Note Date/Time June 13, 2023 10: 53pm [facility] Medical Records Department [address] [place] [address] History & Physical Exam 06/13/23 2254 MR#: [id number] Acct: [id number] Name: HANNAH LIGHT Rep #:[id number] : 1950 73 From: Alanna OLSEN PCP: Mayra Escobedo NP-C Status:ADM I N Location: [facility] A-2 HPI - General HPI Narrative [...] She reports her last injection completed in 2018 provided minimal relief.? patient has failed conservative [...] Heel Spur LT Knee Arthroscopy - (08/18/2009) [email or web address] RT Knee Arthroscopy - (12/23/2011) CHRISSY @ [facility] RT TKR - (08/20/2012) CHRISSY @ [facility] RT THR - (03/25/2013) [email or web address] Knee Arthroscopy RT - (07/31/2013) [email or web address]@ [facility] Anesthesia Complications: None Assistive Devices: Glasses Reviewed, no changes. 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 Personal Habits:? [...] surgery consent form. I have reviewed the [place] Automated Rx Reporting System (OARRS) report for [...] be delayed for any positive test results. [facility] Medical History (Updated 05/31/23 @ 11:23 by [...] Micro Data 06/02/23 07:05 06/02/23 07:05 06/13/23 5553 <Electronically signed by Alanna OLSEN> Cosigner Signature (if applicable): CC: REBECCA Escobedo; Dr. Brennon Ramirez MD; PRETTY Marsh~ Signed ADDENDUM by Dr. Brennon Ramirez MD on 04/24/24 at 1131 Addendum I have examined the patient and the H&P has been reviewed. There are no clinicalchanges since date of exam. 06/14/23 1131<Electronically signed by Brennon Ramirez MD> Cosigner Signature (if applicable): cc: REBECCA Escobedo; Dr. Brennon Ramirez MD; PRETTY Marsh ~* Signed [facility] Work Phone: [phone]) 535-385810-25-2022 Instructions* Name Dates Details Patient Instructions Start:14-Dec-2021 Instruction Type:Provider Instructions for Treatment How to Access Health Informa tion Online using Patient Portal and 3rd Democrat Apps Start:14-Dec-2021 Instruction Type:Patient Education Patient Instructions Indication:Encounter for annual general medical examination with abnormal findings in adult Start:14-Dec-2021 Instruction Type:Provider Instructions for Treatment How to Access Health Informa tion Online using Patient Portal and 3[employer] Democrat Apps Indication:Encounter for annual general medical examination with abnormal findings in adult Start:14-Dec-2021 Instruction Type:Patient Education Patient Instructions Indication:Vertigo Start:06-Apr-2021 Instruction Type:Provider Instructions for Treatment How to Access Health Informa tion Online using Patient Portal and 3[employer] Democrat Apps Indication:Vertigo Start:06-Apr-2021 Instruction Type:Patient Education Patient Instructions Start:11-Jan-2021 Instruction Type:Provider Instructions for Treatment How to Access Health Informa tion Online using Patient Portal and [employer] Apps Start:11-Jan-2021 Instruction Type:Patient Education Patient Instructions Start:09-Nov-2020 Instruction Type:Provider Instructions for Treatment How to Access Health Informa tion Online using Patient Portal and [employer] Apps Start:09-Nov-2020 Instruction Type:Patient Education Patient Instructions Start:27-Oct-2020 Instruction Type:Provider Instructions for Treatment How to Access Health Informa tion Online using Patient Portal and [employer] Apps Start:27-Oct-2020 Instruction Type:Patient Education Patient Instructions Start:20-Oct-2020 Instruction Type:Provider Instructions for Treatment How to Access Health Informa tion Online using Patient Portal and [employer] Apps Start:20-Oct-2020 Instruction Type:Patient Education Patient Instructions Start:13-Mar-2020 Instruction Type:Provider Instructions for Treatment How to Access Health Informa tion Online using Patient Portal and [employer] Apps Start:13-Mar-2020 Instruction Type:Patient Education How to [...] Internal Medicine; [facility] Work Phone: [phone] 474-358010-30-2017 Fall risk [email or web address]/30[facility] No[facility] Work Phone: Discharge summary Author Kit Still [facility] October 25, 2022 10:33am Note Date/Time October 25, 2022 10:33am [facility] Medical Records Department [address] [place] [address] Emergency Department Summary 10/25/22 MR#: [id number] Acct: [id number] Name: HANNAH LIGHT Rep #:[id number] : 1950 72 From: Kit Still MD [...] Recent Illness/Hospitalization: No PFSH PFSH Medical History Hypertension Home Medications ferrous sulfate [...] Care Provider: Mayra Escobedo Referrals: Mayra Escobedo, [employer] [Primary Care Provider] - 1 Week if not improving Disposition Disposition: Home, Self Care What to do if you have Problems For any increased pain, shortness of breath, bleeding, nausea or vomiting, chestpain, or any unexpected problems, contact your Primary Care Provider. Call [facility] ([phone]) or report to the closest Emergency Room. Call 911 if necessary. 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 acute [facility] Work Phone: Evaluation note* Diagnosis Onset Date Resolution Status Admit Date Dyslipidemia chronic October h2024 3:00pm Hypertension chronic October h, 2024 3:00pm Syncope chronic October 29, 2024 3:00pm [facility] Work Phone: Hospital Discharge instructions Additional Instructions Implant Used?: Yes [facility] Work Phone: Instructions* Name Dates Details Patient Instructions Indication:BMI 33.0-33.9,adult Start:11-Jan-2021 Instruction Type:Provider Instructions for Treatment How to Access Health Informa tion Online using Patient Portal and [employer] Apps Indication:BMI 33.0-33.9,adult Start:11-Jan-2021 Instruction Type:Patient Education Patient Instructions Indication:BMI 33.0-33.9,adult Start:09-Nov-2020 Instruction Type:Provider Instructions for Treatment How to Access Health Informa tion Online using Patient Portal and [employer] Apps Indication:BMI 33.0-33.9,adult Start:09-Nov-2020 Instruction Type:Patient Education Patient Instructions Indication:BMI 33.0-33.9,adult Start:27-Oct-2020 Instruction Type:Provider Instructions for Treatment How to Access Health Informa tion Online using Patient Portal and [employer] Apps Indication:BMI 33.0-33.9,adult Start:27-Oct-2020 Instruction Type:Patient Education Patient Instructions Indication:Nonsmoker Start:20-Oct-2020 Instruction Type:Provider Instructions for Treatment How to Access Health Informa tion Online using Patient Portal and [employer] Apps Indication:Nonsmoker Start:20-Oct-2020 Instruction Type:Patient Education Patient Instructions Indication:Nonsmoker Start:13-Mar-2020 Instruction Type:Provider Instructions for Treatment How to Access Health Informa tion Online using Patient Portal and [employer] Apps Indication:Nonsmoker Start:13-Mar-2020 Instruction Type:Patient Education How [...] tion Online using Patient Portal and 3[employer] Apps Indication:Vertigo Start:06-Apr-2021 Instruction Type:Patient Education Patient Instructions Indication:BMI 33.0-33.9,adult Start:11-Jan-2021 Instruction Type:Provider Instructions for Treatment How to Access Health Informa tion Online using Patient Portal and [employer] Apps Indication:BMI 33.0-33.9,adult Start:11-Jan-2021 Instruction Type:Patient Education Patient Instructions Indication:BMI 33.0-33.9,adult Start:09-Nov-2020 Instruction Type:Provider Instructions for Treatment How to Access Health Informa tion Online using Patient Portal and [employer] Apps Indication:BMI 33.0-33.9,adult Start:09-Nov-2020 Instruction Type:Patient Education Patient Instructions Indication:BMI 33.0-33.9,adult Start:27-Oct-2020 Instruction Type:Provider Instructions for Treatment How to Access Health Informa tion Online using Patient Portal and [employer] Apps Indication:BMI 33.0-33.9,adult Start:27-Oct-2020 Instruction Type:Patient Education Patient Instructions Indication:Nonsmoker Start:20-Oct-2020 Instruction Type:Provider Instructions for Treatment How to Access Health Informa tion Online using Patient Portal and [employer] Apps Indication:Nonsmoker Start:20-Oct-2020 Instruction Type:Patient Education Patient Instructions Indication:Nonsmoker Start:13-Mar-2020 Instruction Type:Provider Instructions for Treatment How to Access Health Informa tion Online using Patient Portal and [employer] Apps Indication:Nonsmoker Start:13-Mar-2020 Instruction Type:Patient Education How [...] tion Online using Patient Portal and [employer] Apps Indication:Vertigo Start:06-Apr-2021 Instruction Type:Patient Education Patient Instructions Indication:BMI 33.0-33.9,adult Start:11-Jan-2021 Instruction Type:Provider Instructions for Treatment How to Access Health Informa tion Online using Patient Portal and [employer] Apps Indication:BMI 33.0-33.9,adult Start:11-Jan-2021 Instruction Type:Patient Education Patient Instructions Indication:BMI 33.0-33.9,adult Start:09-Nov-2020 Instruction Type:Provider Instructions for Treatment How to Access Health Informa tion Online using Patient Portal and 3[employer] Apps Indication:BMI 33.0-33.9,adult Start:09-Nov-2020 Instruction Type:Patient Education Patient Instructions Indication:BMI 33.0-33.9,adult Start:27-Oct-2020 Instruction Type:Provider Instructions for Treatment How to Access Health Informa tion Online using Patient Portal and [employer] Apps Indication:BMI 33.0-33.9,adult Start:27-Oct-2020 Instruction Type:Patient Education Patient Instructions Indication:Nonsmoker Start:20-Oct-2020 Instruction Type:Provider Instructions for Treatment How to Access Health Informa tion Online using Patient Portal and [employer] Apps Indication:Nonsmoker Start:20-Oct-2020 Instruction Type:Patient Education Patient Instructions Indication:Nonsmoker Start:13-Mar-2020 Instruction Type:Provider Instructions for Treatment How to Access Health Informa tion Online using Patient Portal and [employer] Apps Indication:Nonsmoker Start:13-Mar-2020 Instruction Type:Patient Education How [...] tion Online using Patient Portal and [employer] Apps Indication:Encounter for annual general medical examination with abnormal findings in adult Start:14-Dec-2021 Instruction Type:Patient Education Patient Instructions Indication:Vertigo Start:06-Apr-2021 Instruction Type:Provider Instructions for Treatment How to Access Health Informa tion Online using Patient Portal and 3[employer] Apps Indication:Vertigo Start:06-Apr-2021 Instruction Type:Patient Education Patient Instructions Indication:BMI 33.0-33.9,adult Start:11-Jan-2021 Instruction Type:Provider Instructions for Treatment How to Access Health Informa tion Online using Patient Portal and [employer] Apps Indication:BMI 33.0-33.9,adult Start:11-Jan-2021 Instruction Type:Patient Education Patient Instructions Indication:BMI 33.0-33.9,adult Start:09-Nov-2020 Instruction Type:Provider Instructions for Treatment How to Access Health Informa tion Online using Patient Portal and 3[employer] Apps Indication:BMI 33.0-33.9,adult Start:09-Nov-2020 Instruction Type:Patient Education Patient Instructions Indication:BMI 33.0-33.9,adult Start:27-Oct-2020 Instruction Type:Provider Instructions for Treatment How to Access Health Informa tion Online using Patient Portal and 3[employer] Apps Indication:BMI 33.0-33.9,adult Start:27-Oct-2020 Instruction Type:Patient Education Patient Instructions Indication:Nonsmoker Start:20-Oct-2020 Instruction Type:Provider Instructions for Treatment How to Access Health Informa tion Online using Patient Portal and 3[employer] Apps Indication:Nonsmoker Start:20-Oct-2020 Instruction Type:Patient Education Patient Instructions Indication:Nonsmoker Start:13-Mar-2020 Instruction Type:Provider Instructions for Treatment How to Access Health Informa tion Online using Patient Portal and 3[employer] Democrat Apps Indication:Nonsmoker Start:13-Mar-2020 Instruction Type:Patient Education How [...] Informa tion Online using Patient Portal and [employer] Apps Indication:Nonsmoker Start:14-Dec-2021 Instruction Type:Patient Education Patient Instructions Indication:Encounter for annual general medical examination with abnormal findings in adult Start:14-Dec-2021 Instruction Type:Provider Instructions for Treatment How to Access Health Informa tion Online using Patient Portal and [employer] Apps Indication:Encounter for annual general medical examination with abnormal findings in adult Start:14-Dec-2021 Instruction Type:Patient Education Patient Instructions Indication:Vertigo Start:06-Apr-2021 Instruction Type:Provider Instructions for Treatment How to Access Health Informa tion Online using Patient Portal and [employer] Apps Indication:Vertigo Start:06-Apr-2021 Instruction Type:Patient Education Patient Instructions Indication:BMI 33.0-33.9,adult Start:11-Jan-2021 Instruction Type:Provider Instructions for Treatment How to Access Health Informa tion Online using Patient Portal and [employer] Apps Indication:BMI 33.0-33.9,adult Start:11-Jan-2021 Instruction Type:Patient Education Patient Instructions Indication:BMI 33.0-33.9,adult Start:09-Nov-2020 Instruction Type:Provider Instructions for Treatment How to Access Health Informa tion Online using Patient Portal and 3[employer] Apps Indication:BMI 33.0-33.9,adult Start:09-Nov-2020 Instruction Type:Patient Education Patient Instructions Indication:BMI 33.0-33.9,adult Start:27-Oct-2020 Instruction Type:Provider Instructions for Treatment How to Access Health Informa tion Online using Patient Portal and 3[employer] Apps Indication:BMI 33.0-33.9,adult Start:27-Oct-2020 Instruction Type:Patient Education Patient Instructions Indication:Nonsmoker Start:20-Oct-2020 Instruction Type:Provider Instructions for Treatment How to Access Health Informa tion Online using Patient Portal and 3[employer] Apps Indication:Nonsmoker Start:20-Oct-2020 Instruction Type:Patient Education Patient Instructions Indication:Nonsmoker Start:13-Mar-2020 Instruction Type:Provider Instructions for Treatment How to Access Health Informa tion Online using Patient Portal and [employer] Apps Indication:Nonsmoker Start:13-Mar-2020 Instruction Type:Patient Education How [...] tion Online using Patient Portal and [employer] Democrat Apps Indication:Nonsmoker Start:14-Dec-2021 Instruction Type:Patient Education Patient Instructions Indication:Encounter for annual general medical examination with abnormal findings in adult Start:14-Dec-2021 Instruction Type:Provider Instructions for Treatment How to Access Health Informa tion Online using Patient Portal and [employer] Apps Indication:Encounter for annual general medical examination with abnormal findings in adult Start:14-Dec-2021 Instruction Type:Patient Education Patient Instructions Indication:Vertigo Start:06-Apr-2021 Instruction Type:Provider Instructions for Treatment How to Access Health Informa tion Online using Patient Portal and 3[employer] Apps Indication:Vertigo Start:06-Apr-2021 Instruction Type:Patient Education Patient Instructions Indication:BMI 33.0-33.9,adult Start:11-Jan-2021 Instruction Type:Provider Instructions for Treatment How to Access Health Informa tion Online using Patient Portal and [employer] Apps Indication:BMI 33.0-33.9,adult Start:11-Jan-2021 Instruction Type:Patient Education Patient Instructions Indication:BMI 33.0-33.9,adult Start:09-Nov-2020 Instruction Type:Provider Instructions for Treatment How to Access Health Informa tion Online using Patient Portal and [employer] Apps Indication:BMI 33.0-33.9,adult Start:09-Nov-2020 Instruction Type:Patient Education Patient Instructions Indication:BMI 33.0-33.9,adult Start:27-Oct-2020 Instruction Type:Provider Instructions for Treatment How to Access Health Informa tion Online using Patient Portal and [employer] Apps Indication:BMI 33.0-33.9,adult Start:27-Oct-2020 Instruction Type:Patient Education Patient Instructions Indication:Nonsmoker Start:20-Oct-2020 Instruction Type:Provider Instructions for Treatment How to Access Health Informa tion Online using Patient Portal and [employer] Apps Indication:Nonsmoker Start:20-Oct-2020 Instruction Type:Patient Education Patient Instructions Indication:Nonsmoker Start:13-Mar-2020 Instruction Type:Provider Instructions for Treatment How to Access Health Informa tion Online using Patient Portal and [employer] Apps Indication:Nonsmoker Start:13-Mar-2020 Instruction Type:Patient Education How [...] Informa tion Online using Patient Portal and [employer] Indication:Nonsmoker Start:14-Dec-2021 Instruction Type:Patient Education Patient Instructions Indication:Encounter for annual general medical examination with abnormal findings in adult Start:14-Dec-2021 Instruction Type:Provider Instructions for Treatment How to Access Health Informa tion Online using Patient Portal and [employer] Apps Indication:Encounter for annual general medical examination with abnormal findings in adult Start:14-Dec-2021 Instruction Type:Patient Education Patient Instructions Indication:Vertigo Start:06-Apr-2021 Instruction Type:Provider Instructions for Treatment How to Access Health Informa tion Online using Patient Portal and [employer] Indication:Vertigo Start:06-Apr-2021 Instruction Type:Patient Education Patient Instructions Indication:BMI 33.0-33.9,adult Start:11-Jan-2021 Instruction Type:Provider Instructions for Treatment How to Access Health Informa tion Online using Patient Portal and [employer] Apps Indication:BMI 33.0-33.9,adult Start:11-Jan-2021 Instruction Type:Patient Education Patient Instructions Indication:BMI 33.0-33.9,adult Start:09-Nov-2020 Instruction Type:Provider Instructions for Treatment How to Access Health Informa tion Online using Patient Portal and [employer] Apps Indication:BMI 33.0-33.9,adult Start:09-Nov-2020 Instruction Type:Patient Education Patient Instructions Indication:BMI 33.0-33.9,adult Start:27-Oct-2020 Instruction Type:Provider Instructions for Treatment How to Access Health Informa tion Online using Patient Portal and [employer] Apps Indication:BMI 33.0-33.9,adult Start:27-Oct-2020 Instruction Type:Patient Education Patient Instructions Indication:Nonsmoker Start:20-Oct-2020 Instruction Type:Provider Instructions for Treatment How to Access Health Informa tion Online using Patient Portal and 3[employer] Apps Indication:Nonsmoker Start:20-Oct-2020 Instruction Type:Patient Education Patient Instructions Indication:Nonsmoker Start:13-Mar-2020 Instruction Type:Provider Instructions for Treatment How to Access Health Informa tion Online using Patient Portal and 3[employer] Democrat Apps Indication:Nonsmoker Start:13-Mar-2020 Instruction Type:Patient Education How [...] tion Online using Patient Portal and 3[employer] Apps Indication:Urticaria, acute Start:28-Mar-2022 Instruction Type:Patient Education Patient Instructions Indication:Nonsmoker Start:14-Dec-2021 Instruction Type:Provider Instructions for Treatment How to Access Health Informa tion Online using Patient Portal and [employer] Apps Indication:Nonsmoker Start:14-Dec-2021 Instruction Type:Patient Education Patient Instructions Indication:Encounter for annual general medical examination with abnormal findings in adult Start:14-Dec-2021 Instruction Type:Provider Instructions for Treatment How to Access Health Informa tion Online using Patient Portal and [employer] Apps Indication:Encounter for annual general medical examination with abnormal findings in adult Start:14-Dec-2021 Instruction Type:Patient Education Patient Instructions Indication:Vertigo Start:06-Apr-2021 Instruction Type:Provider Instructions for Treatment How to Access Health Informa tion Online using Patient Portal and [employer] Apps Indication:Vertigo Start:06-Apr-2021 Instruction Type:Patient Education Patient Instructions Indication:BMI 33.0-33.9,adult Start:11-Jan-2021 Instruction Type:Provider Instructions for Treatment How to Access Health Informa tion Online using Patient Portal and [employer] Apps Indication:BMI 33.0-33.9,adult Start:11-Jan-2021 Instruction Type:Patient Education Patient Instructions Indication:BMI 33.0-33.9,adult Start:09-Nov-2020 Instruction Type:Provider Instructions for Treatment How to Access Health Informa tion Online using Patient Portal and [employer] Apps Indication:BMI 33.0-33.9,adult Start:09-Nov-2020 Instruction Type:Patient Education Patient Instructions Indication:BMI 33.0-33.9,adult Start:27-Oct-2020 Instruction Type:Provider Instructions for Treatment How to Access Health Informa tion Online using Patient Portal and [employer] Apps Indication:BMI 33.0-33.9,adult Start:27-Oct-2020 Instruction Type:Patient Education Patient Instructions Indication:Nonsmoker Start:20-Oct-2020 Instruction Type:Provider Instructions for Treatment How to Access Health Informa tion Online using Patient Portal and [employer] Apps Indication:Nonsmoker Start:20-Oct-2020 Instruction Type:Patient Education Patient Instructions Indication:Nonsmoker Start:13-Mar-2020 Instruction Type:Provider Instructions for Treatment How to Access Health Informa tion Online using Patient Portal and [employer] Apps Indication:Nonsmoker Start:13-Mar-2020 Instruction Type:Patient Education How [...] Informa tion Online using Patient Portal and [employer] Indication:Urticaria, acute Start:28-Mar-2022 Instruction Type:Patient Education Patient Instructions Indication:Nonsmoker Start:14-Dec-2021 Instruction Type:Provider Instructions for Treatment How to Access Health Informa tion Online using Patient Portal and [employer] Indication:Nonsmoker Start:14-Dec-2021 Instruction Type:Patient Education Patient Instructions Indication:Encounter for annual general medical examination with abnormal findings in adult Start:14-Dec-2021 Instruction Type:Provider Instructions for Treatment How to Access Health Informa tion Online using Patient Portal and [employer] Indication:Encounter for annual general medical examination with abnormal findings in adult Start:14-Dec-2021 Instruction Type:Patient Education Patient Instructions Indication:Vertigo Start:06-Apr-2021 Instruction Type:Provider Instructions for Treatment How to Access Health Informa tion Online using Patient Portal and [employer] Apps Indication:Vertigo Start:06-Apr-2021 Instruction Type:Patient Education Patient Instructions Indication:BMI 33.0-33.9,adult Start:11-Jan-2021 Instruction Type:Provider Instructions for Treatment How to Access Health Informa tion Online using Patient Portal and [employer] Apps Indication:BMI 33.0-33.9,adult Start:11-Jan-2021 Instruction Type:Patient Education Patient Instructions Indication:BMI 33.0-33.9,adult Start:09-Nov-2020 Instruction Type:Provider Instructions for Treatment How to Access Health Informa tion Online using Patient Portal and [employer] Apps Indication:BMI 33.0-33.9,adult Start:09-Nov-2020 Instruction Type:Patient Education Patient Instructions Indication:BMI 33.0-33.9,adult Start:27-Oct-2020 Instruction Type:Provider Instructions for Treatment How to Access Health Informa tion Online using Patient Portal and [employer] Apps Indication:BMI 33.0-33.9,adult Start:27-Oct-2020 Instruction Type:Patient Education Patient Instructions Indication:Nonsmoker Start:20-Oct-2020 Instruction Type:Provider Instructions for Treatment How to Access Health Informa tion Online using Patient Portal and [employer] Apps Indication:Nonsmoker Start:20-Oct-2020 Instruction Type:Patient Education Patient Instructions Indication:Nonsmoker Start:13-Mar-2020 Instruction Type:Provider Instructions for Treatment How to Access Health Informa tion Online using Patient Portal and [employer] Apps Indication:Nonsmoker Start:13-Mar-2020 Instruction Type:Patient Education How [...] tion Online using Patient Portal and [employer] Apps Indication:Urticaria, acute Start:28-Mar-2022 Instruction Type:Patient Education Patient Instructions Indication:Nonsmoker Start:14-Dec-2021 Instruction Type:Provider Instructions for Treatment How to Access Health Informa tion Online using Patient Portal and [employer] Apps Indication:Nonsmoker Start:14-Dec-2021 Instruction Type:Patient Education Patient Instructions Indication:Encounter for annual general medical examination with abnormal findings in adult Start:14-Dec-2021 Instruction Type:Provider Instructions for Treatment How to Access Health Informa tion Online using Patient Portal and [employer] Apps Indication:Encounter for annual general medical examination with abnormal findings in adult Start:14-Dec-2021 Instruction Type:Patient Education Patient Instructions Indication:Vertigo Start:06-Apr-2021 Instruction Type:Provider Instructions for Treatment How to Access Health Informa tion Online using Patient Portal and [employer] Indication:Vertigo Start:06-Apr-2021 Instruction Type:Patient Education Patient Instructions Indication:BMI 33.0-33.9,adult Start:11-Jan-2021 Instruction Type:Provider Instructions for Treatment How to Access Health Informa tion Online using Patient Portal and [employer] Apps Indication:BMI 33.0-33.9,adult Start:11-Jan-2021 Instruction Type:Patient Education Patient Instructions Indication:BMI 33.0-33.9,adult Start:09-Nov-2020 Instruction Type:Provider Instructions for Treatment How to Access Health Informa tion Online using Patient Portal and [employer] Apps Indication:BMI 33.0-33.9,adult Start:09-Nov-2020 Instruction Type:Patient Education Patient Instructions Indication:BMI 33.0-33.9,adult Start:27-Oct-2020 Instruction Type:Provider Instructions for Treatment How to Access Health Informa tion Online using Patient Portal and [employer] Apps Indication:BMI 33.0-33.9,adult Start:27-Oct-2020 Instruction Type:Patient Education Patient Instructions Indication:Nonsmoker Start:20-Oct-2020 Instruction Type:Provider Instructions for Treatment How to Access Health Informa tion Online using Patient Portal and [employer] Apps Indication:Nonsmoker Start:20-Oct-2020 Instruction Type:Patient Education Patient Instructions Indication:Nonsmoker Start:13-Mar-2020 Instruction Type:Provider Instructions for Treatment How to Access Health Informa tion Online using Patient Portal and [employer] Apps Indication:Nonsmoker Start:13-Mar-2020 Instruction Type:Patient Education How [...] Informa tion Online using Patient Portal and [employer] Apps Indication:Cough Start:14-Jun-2022 Instruction Type:Patient Education Patient Instructions Indication:Urticaria, acute Start:28-Mar-2022 Instruction Type:Provider Instructions for Treatment How to Access Health Informa tion Online using Patient Portal and [employer] Apps Indication:Urticaria, acute Start:28-Mar-2022 Instruction Type:Patient Education Patient Instructions Indication:Nonsmoker Start:14-Dec-2021 Instruction Type:Provider Instructions for Treatment How to Access Health Informa tion Online using Patient Portal and [employer] Apps Indication:Nonsmoker Start:14-Dec-2021 Instruction Type:Patient Education Patient Instructions Indication:Encounter for annual general medical examination with abnormal findings in adult Start:14-Dec-2021 Instruction Type:Provider Instructions for Treatment How to Access Health Informa tion Online using Patient Portal and [employer] Apps Indication:Encounter for annual general medical examination with abnormal findings in adult Start:14-Dec-2021 Instruction Type:Patient Education Patient Instructions Indication:Vertigo Start:06-Apr-2021 Instruction Type:Provider Instructions for Treatment How to Access Health Informa tion Online using Patient Portal and [employer] Apps Indication:Vertigo Start:06-Apr-2021 Instruction Type:Patient Education Patient Instructions Indication:BMI 33.0-33.9,adult Start:11-Jan-2021 Instruction Type:Provider Instructions for Treatment How to Access Health Informa tion Online using Patient Portal and [employer] Apps Indication:BMI 33.0-33.9,adult Start:11-Jan-2021 Instruction Type:Patient Education Patient Instructions Indication:BMI 33.0-33.9,adult Start:09-Nov-2020 Instruction Type:Provider Instructions for Treatment How to Access Health Informa tion Online using Patient Portal and [employer] Indication:BMI 33.0-33.9,adult Start:09-Nov-2020 Instruction Type:Patient Education Patient Instructions Indication:BMI 33.0-33.9,adult Start:27-Oct-2020 Instruction Type:Provider Instructions for Treatment How to Access Health Informa tion Online using Patient Portal and [employer] Indication:BMI 33.0-33.9,adult Start:27-Oct-2020 Instruction Type:Patient Education Patient Instructions Indication:Nonsmoker Start:20-Oct-2020 Instruction Type:Provider Instructions for Treatment How to Access Health Informa tion Online using Patient Portal and [employer] Indication:Nonsmoker Start:20-Oct-2020 Instruction Type:Patient Education Patient Instructions Indication:Nonsmoker Start:13-Mar-2020 Instruction Type:Provider Instructions for Treatment How to Access Health Informa tion Online using Patient Portal and [employer] Apps Indication:Nonsmoker Start:13-Mar-2020 Instruction Type:Patient Education How [...] Informa tion Online using Patient Portal and [employer] Apps Indication:Cough Start:14-Jun-2022 Instruction Type:Patient Education Patient Instructions Indication:Urticaria, acute Start:28-Mar-2022 Instruction Type:Provider Instructions for Treatment How to Access Health Informa tion Online using Patient Portal and [employer] Apps Indication:Urticaria, acute Start:28-Mar-2022 Instruction Type:Patient Education Patient Instructions Indication:Nonsmoker Start:14-Dec-2021 Instruction Type:Provider Instructions for Treatment How to Access Health Informa tion Online using Patient Portal and [employer] Indication:Nonsmoker Start:14-Dec-2021 Instruction Type:Patient Education Patient Instructions Indication:Encounter for annual general medical examination with abnormal findings in adult Start:14-Dec-2021 Instruction Type:Provider Instructions for Treatment How to Access Health Informa tion Online using Patient Portal and [employer] Apps Indication:Encounter for annual general medical examination with abnormal findings in adult Start:14-Dec-2021 Instruction Type:Patient Education Patient Instructions Indication:Vertigo Start:06-Apr-2021 Instruction Type:Provider Instructions for Treatment How to Access Health Informa tion Online using Patient Portal and [employer] Apps Indication:Vertigo Start:06-Apr-2021 Instruction Type:Patient Education Patient Instructions Indication:BMI 33.0-33.9,adult Start:11-Jan-2021 Instruction Type:Provider Instructions for Treatment How to Access Health Informa tion Online using Patient Portal and [employer] Indication:BMI 33.0-33.9,adult Start:11-Jan-2021 Instruction Type:Patient Education Patient Instructions Indication:BMI 33.0-33.9,adult Start:09-Nov-2020 Instruction Type:Provider Instructions for Treatment How to Access Health Informa tion Online using Patient Portal and [employer] Indication:BMI 33.0-33.9,adult Start:09-Nov-2020 Instruction Type:Patient Education Patient Instructions Indication:BMI 33.0-33.9,adult Start:27-Oct-2020 Instruction Type:Provider Instructions for Treatment How to Access Health Informa tion Online using Patient Portal and [employer] Indication:BMI 33.0-33.9,adult Start:27-Oct-2020 Instruction Type:Patient Education Patient Instructions Indication:Nonsmoker Start:20-Oct-2020 Instruction Type:Provider Instructions for Treatment How to Access Health Informa tion Online using Patient Portal and [employer] Indication:Nonsmoker Start:20-Oct-2020 Instruction Type:Patient Education Patient Instructions Indication:Nonsmoker Start:13-Mar-2020 Instruction Type:Provider Instructions for Treatment How to Access Health Informa tion Online using Patient Portal and [employer] Apps Indication:Nonsmoker Start:13-Mar-2020 Instruction Type:Patient Education How [...] tion Online using Patient Portal and [employer] Apps Indication:Nonsmoker Start:01-Jul-2022 Instruction Type:Patient Education Patient Instructions Indication:Cough Start:14-Jun-2022 Instruction Type:Provider Instructions for Treatment How to Access Health Informa tion Online using Patient Portal and [employer] Apps Indication:Cough Start:14-Jun-2022 Instruction Type:Patient Education Patient Instructions Indication:Urticaria, acute Start:28-Mar-2022 Instruction Type:Provider Instructions for Treatment How to Access Health Informa tion Online using Patient Portal and [employer] Apps Indication:Urticaria, acute Start:28-Mar-2022 Instruction Type:Patient Education Patient Instructions Indication:Nonsmoker Start:14-Dec-2021 Instruction Type:Provider Instructions for Treatment How to Access Health Informa tion Online using Patient Portal and [employer] Indication:Nonsmoker Start:14-Dec-2021 Instruction Type:Patient Education Patient Instructions Indication:Encounter for annual general medical examination with abnormal findings in adult Start:14-Dec-2021 Instruction Type:Provider Instructions for Treatment How to Access Health Informa tion Online using Patient Portal and [employer] Indication:Encounter for annual general medical examination with abnormal findings in adult Start:14-Dec-2021 Instruction Type:Patient Education Patient Instructions Indication:Vertigo Start:06-Apr-2021 Instruction Type:Provider Instructions for Treatment How to Access Health Informa tion Online using Patient Portal and [employer] Apps Indication:Vertigo Start:06-Apr-2021 Instruction Type:Patient Education Patient Instructions Indication:BMI 33.0-33.9,adult Start:11-Jan-2021 Instruction Type:Provider Instructions for Treatment How to Access Health Informa tion Online using Patient Portal and [employer] Indication:BMI 33.0-33.9,adult Start:11-Jan-2021 Instruction Type:Patient Education Patient Instructions Indication:BMI 33.0-33.9,adult Start:09-Nov-2020 Instruction Type:Provider Instructions for Treatment How to Access Health Informa tion Online using Patient Portal and [employer] Indication:BMI 33.0-33.9,adult Start:09-Nov-2020 Instruction Type:Patient Education Patient Instructions Indication:BMI 33.0-33.9,adult Start:27-Oct-2020 Instruction Type:Provider Instructions for Treatment How to Access Health Informa tion Online using Patient Portal and [employer] Indication:BMI 33.0-33.9,adult Start:27-Oct-2020 Instruction Type:Patient Education Patient Instructions Indication:Nonsmoker Start:20-Oct-2020 Instruction Type:Provider Instructions for Treatment How to Access Health Informa tion Online using Patient Portal and [employer] Apps Indication:Nonsmoker Start:20-Oct-2020 Instruction Type:Patient Education Patient Instructions Indication:Nonsmoker Start:13-Mar-2020 Instruction Type:Provider Instructions for Treatment How to Access Health Informa tion Online using Patient Portal and [employer] Apps Indication:Nonsmoker Start:13-Mar-2020 Instruction Type:Patient Education How [...] tion Online using Patient Portal and [employer] Indication:Nonsmoker Start:01-Jul-2022 Instruction Type:Patient Education Patient Instructions Indication:Cough Start:14-Jun-2022 Instruction Type:Provider Instructions for Treatment How to Access Health Informa tion Online using Patient Portal and [employer] Apps Indication:Cough Start:14-Jun-2022 Instruction Type:Patient Education Patient Instructions Indication:Urticaria, acute Start:28-Mar-2022 Instruction Type:Provider Instructions for Treatment How to Access Health Informa tion Online using Patient Portal and [employer] Apps Indication:Urticaria, acute Start:28-Mar-2022 Instruction Type:Patient Education Patient Instructions Indication:Nonsmoker Start:14-Dec-2021 Instruction Type:Provider Instructions for Treatment How to Access Health Informa tion Online using Patient Portal and [employer] Indication:Nonsmoker Start:14-Dec-2021 Instruction Type:Patient Education Patient Instructions Indication:Encounter for annual general medical examination with abnormal findings in adult Start:14-Dec-2021 Instruction Type:Provider Instructions for Treatment How to Access Health Informa tion Online using Patient Portal and [employer] Indication:Encounter for annual general medical examination with abnormal findings in adult Start:14-Dec-2021 Instruction Type:Patient Education Patient Instructions Indication:Vertigo Start:06-Apr-2021 Instruction Type:Provider Instructions for Treatment How to Access Health Informa tion Online using Patient Portal and [employer] Indication:Vertigo Start:06-Apr-2021 Instruction Type:Patient Education Patient Instructions Indication:BMI 33.0-33.9,adult Start:11-Jan-2021 Instruction Type:Provider Instructions for Treatment How to Access Health Informa tion Online using Patient Portal and [employer] Indication:BMI 33.0-33.9,adult Start:11-Jan-2021 Instruction Type:Patient Education Patient Instructions Indication:BMI 33.0-33.9,adult Start:09-Nov-2020 Instruction Type:Provider Instructions for Treatment How to Access Health Informa tion Online using Patient Portal and [employer] Indication:BMI 33.0-33.9,adult Start:09-Nov-2020 Instruction Type:Patient Education Patient Instructions Indication:BMI 33.0-33.9,adult Start:27-Oct-2020 Instruction Type:Provider Instructions for Treatment How to Access Health Informa tion Online using Patient Portal and [employer] Indication:BMI 33.0-33.9,adult Start:27-Oct-2020 Instruction Type:Patient Education Patient Instructions Indication:Nonsmoker Start:20-Oct-2020 Instruction Type:Provider Instructions for Treatment How to Access Health Informa tion Online using Patient Portal and [employer] Indication:Nonsmoker Start:20-Oct-2020 Instruction Type:Patient Education Patient Instructions Indication:Nonsmoker Start:13-Mar-2020 Instruction Type:Provider Instructions for Treatment How to Access Health Informa tion Online using Patient Portal and [employer] Apps Indication:Nonsmoker Start:13-Mar-2020 Instruction Type:Patient Education How [...] Informa tion Online using Patient Portal and [employer] Indication:BMI 33.0-33.9,adult Start:31-Oct-2022 Instruction Type:Patient Education Patient Instructions Indication:Nonsmoker Start:01-Jul-2022 Instruction Type:Provider Instructions for Treatment How to Access Health Informa tion Online using Patient Portal and [employer] Indication:Nonsmoker Start:01-Jul-2022 Instruction Type:Patient Education Patient Instructions Indication:Cough Start:14-Jun-2022 Instruction Type:Provider Instructions for Treatment How to Access Health Informa tion Online using Patient Portal and [employer] Apps Indication:Cough Start:14-Jun-2022 Instruction Type:Patient Education Patient Instructions Indication:Urticaria, acute Start:28-Mar-2022 Instruction Type:Provider Instructions for Treatment How to Access Health Informa tion Online using Patient Portal and [employer] Apps Indication:Urticaria, acute Start:28-Mar-2022 Instruction Type:Patient Education Patient Instructions Indication:Nonsmoker Start:14-Dec-2021 Instruction Type:Provider Instructions for Treatment How to Access Health Informa tion Online using Patient Portal and [employer] Indication:Nonsmoker Start:14-Dec-2021 Instruction Type:Patient Education Patient Instructions Indication:Encounter for annual general medical examination with abnormal findings in adult Start:14-Dec-2021 Instruction Type:Provider Instructions for Treatment How to Access Health Informa tion Online using Patient Portal and [employer] Apps Indication:Encounter for annual general medical examination with abnormal findings in adult Start:14-Dec-2021 Instruction Type:Patient Education Patient Instructions Indication:Vertigo Start:06-Apr-2021 Instruction Type:Provider Instructions for Treatment How to Access Health Informa tion Online using Patient Portal and [employer] Indication:Vertigo Start:06-Apr-2021 Instruction Type:Patient Education Patient Instructions Indication:BMI 33.0-33.9,adult Start:11-Jan-2021 Instruction Type:Provider Instructions for Treatment How to Access Health Informa tion Online using Patient Portal and [employer] Indication:BMI 33.0-33.9,adult Start:11-Jan-2021 Instruction Type:Patient Education Patient Instructions Indication:BMI 33.0-33.9,adult Start:09-Nov-2020 Instruction Type:Provider Instructions for Treatment How to Access Health Informa tion Online using Patient Portal and [employer] Indication:BMI 33.0-33.9,adult Start:09-Nov-2020 Instruction Type:Patient Education Patient Instructions Indication:BMI 33.0-33.9,adult Start:27-Oct-2020 Instruction Type:Provider Instructions for Treatment How to Access Health Informa tion Online using Patient Portal and [employer] Indication:BMI 33.0-33.9,adult Start:27-Oct-2020 Instruction Type:Patient Education Patient Instructions Indication:Nonsmoker Start:20-Oct-2020 Instruction Type:Provider Instructions for Treatment How to Access Health Informa tion Online using Patient Portal and [employer] Indication:Nonsmoker Start:20-Oct-2020 Instruction Type:Patient Education Patient Instructions Indication:Nonsmoker Start:13-Mar-2020 Instruction Type:Provider Instructions for Treatment How to Access Health Informa tion Online using Patient Portal and [employer] Apps Indication:Nonsmoker Start:13-Mar-2020 Instruction Type:Patient Education How [...] tion Online using Patient Portal and [employer] Indication:BMI 33.0-33.9,adult Start:31-Oct-2022 Instruction Type:Patient Education Patient Instructions Indication:Nonsmoker Start:01-Jul-2022 Instruction Type:Provider Instructions for Treatment How to Access Health Informa tion Online using Patient Portal and [employer] Indication:Nonsmoker Start:01-Jul-2022 Instruction Type:Patient Education Patient Instructions Indication:Cough Start:14-Jun-2022 Instruction Type:Provider Instructions for Treatment How to Access Health Informa tion Online using Patient Portal and [employer] Apps Indication:Cough Start:14-Jun-2022 Instruction Type:Patient Education Patient Instructions Indication:Urticaria, acute Start:28-Mar-2022 Instruction Type:Provider Instructions for Treatment How to Access Health Informa tion Online using Patient Portal and [employer] Apps Indication:Urticaria, acute Start:28-Mar-2022 Instruction Type:Patient Education Patient Instructions Indication:Nonsmoker Start:14-Dec-2021 Instruction Type:Provider Instructions for Treatment How to Access Health Informa tion Online using Patient Portal and [employer] Indication:Nonsmoker Start:14-Dec-2021 Instruction Type:Patient Education Patient Instructions Indication:Encounter for annual general medical examination with abnormal findings in adult Start:14-Dec-2021 Instruction Type:Provider Instructions for Treatment How to Access Health Informa tion Online using Patient Portal and [employer] Indication:Encounter for annual general medical examination with abnormal findings in adult Start:14-Dec-2021 Instruction Type:Patient Education Patient Instructions Indication:Vertigo Start:06-Apr-2021 Instruction Type:Provider Instructions for Treatment How to Access Health Informa tion Online using Patient Portal and [employer] Indication:Vertigo Start:06-Apr-2021 Instruction Type:Patient Education Patient Instructions Indication:BMI 33.0-33.9,adult Start:11-Jan-2021 Instruction Type:Provider Instructions for Treatment How to Access Health Informa tion Online using Patient Portal and [employer] Indication:BMI 33.0-33.9,adult Start:11-Jan-2021 Instruction Type:Patient Education Patient Instructions Indication:BMI 33.0-33.9,adult Start:09-Nov-2020 Instruction Type:Provider Instructions for Treatment How to Access Health Informa tion Online using Patient Portal and [employer] Indication:BMI 33.0-33.9,adult Start:09-Nov-2020 Instruction Type:Patient Education Patient Instructions Indication:BMI 33.0-33.9,adult Start:27-Oct-2020 Instruction Type:Provider Instructions for Treatment How to Access Health Informa tion Online using Patient Portal and [employer] Indication:BMI 33.0-33.9,adult Start:27-Oct-2020 Instruction Type:Patient Education Patient Instructions Indication:Nonsmoker Start:20-Oct-2020 Instruction Type:Provider Instructions for Treatment How to Access Health Informa tion Online using Patient Portal and [employer] Apps Indication:Nonsmoker Start:20-Oct-2020 Instruction Type:Patient Education Patient Instructions Indication:Nonsmoker Start:13-Mar-2020 Instruction Type:Provider Instructions for Treatment How to Access Health Informa tion Online using Patient Portal and [employer] Apps Indication:Nonsmoker Start:13-Mar-2020 Instruction Type:Patient Education How [...] tion Online using Patient Portal and [employer] Indication:BMI 33.0-33.9,adult Start:31-Oct-2022 Instruction Type:Patient Education Patient Instructions Indication:Nonsmoker Start:01-Jul-2022 Instruction Type:Provider Instructions for Treatment How to Access Health Informa tion Online using Patient Portal and [employer] Indication:Nonsmoker Start:01-Jul-2022 Instruction Type:Patient Education Patient Instructions Indication:Cough Start:14-Jun-2022 Instruction Type:Provider Instructions for Treatment How to Access Health Informa tion Online using Patient Portal and [employer] Apps Indication:Cough Start:14-Jun-2022 Instruction Type:Patient Education Patient Instructions Indication:Urticaria, acute Start:28-Mar-2022 Instruction Type:Provider Instructions for Treatment How to Access Health Informa tion Online using Patient Portal and [employer] Apps Indication:Urticaria, acute Start:28-Mar-2022 Instruction Type:Patient Education Patient Instructions Indication:Nonsmoker Start:14-Dec-2021 Instruction Type:Provider Instructions for Treatment How to Access Health Informa tion Online using Patient Portal and [employer] Apps Indication:Nonsmoker Start:14-Dec-2021 Instruction Type:Patient Education Patient Instructions Indication:Encounter for annual general medical examination with abnormal findings in adult Start:14-Dec-2021 Instruction Type:Provider Instructions for Treatment How to Access Health Informa tion Online using Patient Portal and [employer] Indication:Encounter for annual general medical examination with abnormal findings in adult Start:14-Dec-2021 Instruction Type:Patient Education Patient Instructions Indication:Vertigo Start:06-Apr-2021 Instruction Type:Provider Instructions for Treatment How to Access Health Informa tion Online using Patient Portal and [employer] Indication:Vertigo Start:06-Apr-2021 Instruction Type:Patient Education Patient Instructions Indication:BMI 33.0-33.9,adult Start:11-Jan-2021 Instruction Type:Provider Instructions for Treatment How to Access Health Informa tion Online using Patient Portal and [employer] Indication:BMI 33.0-33.9,adult Start:11-Jan-2021 Instruction Type:Patient Education Patient Instructions Indication:BMI 33.0-33.9,adult Start:09-Nov-2020 Instruction Type:Provider Instructions for Treatment How to Access Health Informa tion Online using Patient Portal and [employer] Indication:BMI 33.0-33.9,adult Start:09-Nov-2020 Instruction Type:Patient Education Patient Instructions Indication:BMI 33.0-33.9,adult Start:27-Oct-2020 Instruction Type:Provider Instructions for Treatment How to Access Health Informa tion Online using Patient Portal and [employer] Indication:BMI 33.0-33.9,adult Start:27-Oct-2020 Instruction Type:Patient Education Patient Instructions Indication:Nonsmoker Start:20-Oct-2020 Instruction Type:Provider Instructions for Treatment How to Access Health Informa tion Online using Patient Portal and [employer] Indication:Nonsmoker Start:20-Oct-2020 Instruction Type:Patient Education Patient Instructions Indication:Nonsmoker Start:13-Mar-2020 Instruction Type:Provider Instructions for Treatment How to Access Health Informa tion Online using Patient Portal and [employer] Indication:Nonsmoker Start:13-Mar-2020 Instruction Type:Patient Education How [...] tion Online using Patient Portal and [employer] Indication:BMI 33.0-33.9,adult Start:31-Oct-2022 Instruction Type:Patient Education Patient Instructions Indication:Nonsmoker Start:01-Jul-2022 Instruction Type:Provider Instructions for Treatment How to Access Health Informa tion Online using Patient Portal and [employer] Indication:Nonsmoker Start:01-Jul-2022 Instruction Type:Patient Education Patient Instructions Indication:Cough Start:14-Jun-2022 Instruction Type:Provider Instructions for Treatment How to Access Health Informa tion Online using Patient Portal and [employer] Indication:Cough Start:14-Jun-2022 Instruction Type:Patient Education Patient Instructions Indication:Urticaria, acute Start:28-Mar-2022 Instruction Type:Provider Instructions for Treatment How to Access Health Informa tion Online using Patient Portal and [employer] Apps Indication:Urticaria, acute Start:28-Mar-2022 Instruction Type:Patient Education Patient Instructions Indication:Nonsmoker Start:14-Dec-2021 Instruction Type:Provider Instructions for Treatment How to Access Health Informa tion Online using Patient Portal and [employer] Indication:Nonsmoker Start:14-Dec-2021 Instruction Type:Patient Education Patient Instructions Indication:Encounter for annual general medical examination with abnormal findings in adult Start:14-Dec-2021 Instruction Type:Provider Instructions for Treatment How to Access Health Informa tion Online using Patient Portal and [employer] Indication:Encounter for annual general medical examination with abnormal findings in adult Start:14-Dec-2021 Instruction Type:Patient Education Patient Instructions Indication:Vertigo Start:06-Apr-2021 Instruction Type:Provider Instructions for Treatment How to Access Health Informa tion Online using Patient Portal and [employer] Apps Indication:Vertigo Start:06-Apr-2021 Instruction Type:Patient Education Patient Instructions Indication:BMI 33.0-33.9,adult Start:11-Jan-2021 Instruction Type:Provider Instructions for Treatment How to Access Health Informa tion Online using Patient Portal and [employer] Indication:BMI 33.0-33.9,adult Start:11-Jan-2021 Instruction Type:Patient Education Patient Instructions Indication:BMI 33.0-33.9,adult Start:09-Nov-2020 Instruction Type:Provider Instructions for Treatment How to Access Health Informa tion Online using Patient Portal and [employer] Indication:BMI 33.0-33.9,adult Start:09-Nov-2020 Instruction Type:Patient Education Patient Instructions Indication:BMI 33.0-33.9,adult Start:27-Oct-2020 Instruction Type:Provider Instructions for Treatment How to Access Health Informa tion Online using Patient Portal and [employer] Indication:BMI 33.0-33.9,adult Start:27-Oct-2020 Instruction Type:Patient Education Patient Instructions Indication:Nonsmoker Start:20-Oct-2020 Instruction Type:Provider Instructions for Treatment How to Access Health Informa tion Online using Patient Portal and [employer] Indication:Nonsmoker Start:20-Oct-2020 Instruction Type:Patient Education Patient Instructions Indication:Nonsmoker Start:13-Mar-2020 Instruction Type:Provider Instructions for Treatment How to Access Health Informa tion Online using Patient Portal and [employer] Indication:Nonsmoker Start:13-Mar-2020 Instruction Type:Patient Education How [...] Informa tion Online using Patient Portal and [employer] Apps Indication:BMI 33.0-33.9,adult Start:31-Oct-2022 Instruction Type:Patient Education Patient Instructions Indication:Nonsmoker Start:01-Jul-2022 Instruction Type:Provider Instructions for Treatment How to Access Health Informa tion Online using Patient Portal and [employer] Apps Indication:Nonsmoker Start:01-Jul-2022 Instruction Type:Patient Education Patient Instructions Indication:Cough Start:14-Jun-2022 Instruction Type:Provider Instructions for Treatment How to Access Health Informa tion Online using Patient Portal and [employer] Apps Indication:Cough Start:14-Jun-2022 Instruction Type:Patient Education Patient Instructions Indication:Urticaria, acute Start:28-Mar-2022 Instruction Type:Provider Instructions for Treatment How to Access Health Informa tion Online using Patient Portal and [employer] Apps Indication:Urticaria, acute Start:28-Mar-2022 Instruction Type:Patient Education Patient Instructions Indication:Nonsmoker Start:14-Dec-2021 Instruction Type:Provider Instructions for Treatment How to Access Health Informa tion Online using Patient Portal and [employer] Apps Indication:Nonsmoker Start:14-Dec-2021 Instruction Type:Patient Education Patient Instructions Indication:Encounter for annual general medical examination with abnormal findings in adult Start:14-Dec-2021 Instruction Type:Provider Instructions for Treatment How to Access Health Informa tion Online using Patient Portal and [employer] Apps Indication:Encounter for annual general medical examination with abnormal findings in adult Start:14-Dec-2021 Instruction Type:Patient Education Patient Instructions Indication:Vertigo Start:06-Apr-2021 Instruction Type:Provider Instructions for Treatment How to Access Health Informa tion Online using Patient Portal and [employer] Apps Indication:Vertigo Start:06-Apr-2021 Instruction Type:Patient Education Patient Instructions Indication:BMI 33.0-33.9,adult Start:11-Jan-2021 Instruction Type:Provider Instructions for Treatment How to Access Health Informa tion Online using Patient Portal and [employer] Apps Indication:BMI 33.0-33.9,adult Start:11-Jan-2021 Instruction Type:Patient Education Patient Instructions Indication:BMI 33.0-33.9,adult Start:09-Nov-2020 Instruction Type:Provider Instructions for Treatment How to Access Health Informa tion Online using Patient Portal and [employer] Indication:BMI 33.0-33.9,adult Start:09-Nov-2020 Instruction Type:Patient Education Patient Instructions Indication:BMI 33.0-33.9,adult Start:27-Oct-2020 Instruction Type:Provider Instructions for Treatment How to Access Health Informa tion Online using Patient Portal and [employer] Indication:BMI 33.0-33.9,adult Start:27-Oct-2020 Instruction Type:Patient Education Patient Instructions Indication:Nonsmoker Start:20-Oct-2020 Instruction Type:Provider Instructions for Treatment How to Access Health Informa tion Online using Patient Portal and [employer] Indication:Nonsmoker Start:20-Oct-2020 Instruction Type:Patient Education Patient Instructions Indication:Nonsmoker Start:13-Mar-2020 Instruction Type:Provider Instructions for Treatment How to Access Health Informa tion Online using Patient Portal and [employer] Indication:Nonsmoker Start:13-Mar-2020 Instruction Type:Patient Education How [...] tion Online using Patient Portal and [employer] Indication:BMI 33.0-33.9,adult Start:31-Oct-2022 Instruction Type:Patient Education Patient Instructions Indication:Nonsmoker Start:01-Jul-2022 Instruction Type:Provider Instructions for Treatment How to Access Health Informa tion Online using Patient Portal and [employer] Indication:Nonsmoker Start:01-Jul-2022 Instruction Type:Patient Education Patient Instructions Indication:Cough Start:14-Jun-2022 Instruction Type:Provider Instructions for Treatment How to Access Health Informa tion Online using Patient Portal and [employer] Indication:Cough Start:14-Jun-2022 Instruction Type:Patient Education Patient Instructions Indication:Urticaria, acute Start:28-Mar-2022 Instruction Type:Provider Instructions for Treatment How to Access Health Informa tion Online using Patient Portal and [employer] Indication:Urticaria, acute Start:28-Mar-2022 Instruction Type:Patient Education Patient Instructions Indication:Nonsmoker Start:14-Dec-2021 Instruction Type:Provider Instructions for Treatment How to Access Health Informa tion Online using Patient Portal and [employer] Indication:Nonsmoker Start:14-Dec-2021 Instruction Type:Patient Education Patient Instructions Indication:Encounter for annual general medical examination with abnormal findings in adult Start:14-Dec-2021 Instruction Type:Provider Instructions for Treatment How to Access Health Informa tion Online using Patient Portal and [employer] Indication:Encounter for annual general medical examination with abnormal findings in adult Start:14-Dec-2021 Instruction Type:Patient Education Patient Instructions Indication:Vertigo Start:06-Apr-2021 Instruction Type:Provider Instructions for Treatment How to Access Health Informa tion Online using Patient Portal and [employer] Indication:Vertigo Start:06-Apr-2021 Instruction Type:Patient Education Patient Instructions Indication:BMI 33.0-33.9,adult Start:11-Jan-2021 Instruction Type:Provider Instructions for Treatment How to Access Health Informa tion Online using Patient Portal and [employer] Indication:BMI 33.0-33.9,adult Start:11-Jan-2021 Instruction Type:Patient Education Patient Instructions Indication:BMI 33.0-33.9,adult Start:09-Nov-2020 Instruction Type:Provider Instructions for Treatment How to Access Health Informa tion Online using Patient Portal and [employer] Indication:BMI 33.0-33.9,adult Start:09-Nov-2020 Instruction Type:Patient Education Patient Instructions Indication:BMI 33.0-33.9,adult Start:27-Oct-2020 Instruction Type:Provider Instructions for Treatment How to Access Health Informa tion Online using Patient Portal and [employer] Indication:BMI 33.0-33.9,adult Start:27-Oct-2020 Instruction Type:Patient Education Patient Instructions Indication:Nonsmoker Start:20-Oct-2020 Instruction Type:Provider Instructions for Treatment How to Access Health Informa tion Online using Patient Portal and [employer] Indication:Nonsmoker Start:20-Oct-2020 Instruction Type:Patient Education Patient Instructions Indication:Nonsmoker Start:13-Mar-2020 Instruction Type:Provider Instructions for Treatment How to Access Health Informa tion Online using Patient Portal and [employer] Apps Indication:Nonsmoker Start:13-Mar-2020 Instruction Type:Patient Education How [...] for referral (narrative)No reason for [facility]: Family History No Family History Records FoundUnknown Family Member Name Dates Details Brother 1 Comments:ME/CAD Status:Active Brother 2 Comments:Kidney failure, [place] Status:Active Family Members In General Comments:alcoholism, drug de pendency/abuse, Anxiety/Depression, Stroke, Suicide/Traumatic Status:Active Father Comments:ME, brain aneurysm Status:Active Mother Comments:Hypertension, Thyro id Disease Status:Active Sister 1 Comments:half sister: [place]/CVA Status:Active Unknown Family Member Name Dates Details Brother 1 Comments:ME/CAD Status:Active Brother 2 Comments:Kidney failure, [place] Status:Active Family Members In General Comments:alcoholism, drug de pendency/abuse, Anxiety/Depression, Stroke, Suicide/Traumatic Status:Active Father Comments:ME, brain aneurysm Status:Active Mother Comments:Hypertension, Thyro id Disease Status:Active Sister 1 Comments:half sister: [place]/CVA Status:Active Unknown Family Member Name Dates Details Brother 1 Comments:ME/CAD Status:Active Brother 2 Comments:Kidney failure, [place] Status:Active Family Members In General Comments:alcoholism, drug de pendency/abuse, Anxiety/Depression, Stroke, Suicide/Traumatic Status:Active Father Comments:ME, brain aneurysm Status:Active Mother Comments:Hypertension, Thyro id Disease Status:Active Sister 1 Comments:half sister: [place]/CVA Status:Active Unknown Family Member Name Dates Details Brother 1 Comments:ME/CAD Status:Active Brother 2 Comments:Kidney failure, [place] Status:Active Family Members In General Comments:alcoholism, drug de pendency/abuse, Anxiety/Depression, Stroke, Suicide/Traumatic Status:Active Father Comments:ME, brain aneurysm Status:Active Mother Comments:Hypertension, Thyro id Disease Status:Active Sister 1 Comments:half sister: [place]/CVA Status:Active Unknown Family Member Name Dates Details Brother 1 Comments:ME/CAD Status:Active Brother 2 Comments:Kidney failure, [place] Status:Active Family Members In General Comments:alcoholism, drug de pendency/abuse, Anxiety/Depression, Stroke, Suicide/Traumatic Status:Active Father Comments:ME, brain aneurysm Status:Active Mother Comments:Hypertension, Thyro id Disease Status:Active Sister 1 Comments:half sister: [place]/CVA Status:Active Unknown Family Member Name Dates Details Brother 1 Comments:ME/CAD Status:Active Brother 2 Comments:Kidney failure, [place] Status:Active Family Members In General Comments:alcoholism, drug de pendency/abuse, Anxiety/Depression, Stroke, Suicide/Traumatic Status:Active Father Comments:ME, brain aneurysm Status:Active Mother Comments:Hypertension, Thyro id Disease Status:Active Sister 1 Comments:half sister: [place]/CVA Status:Active Unknown Family Member Name Dates Details Brother 1 Comments:ME/CAD Status:Active Brother 2 Comments:Kidney failure, [place] Status:Active Family Members In General Comments:alcoholism, drug de pendency/abuse, Anxiety/Depression, Stroke, Suicide/Traumatic Status:Active Father Comments:ME, brain aneurysm Status:Active Mother Comments:Hypertension, Thyro id Disease Status:Active Sister 1 Comments:half sister: [place]/CVA Status:Active Unknown Family Member Name Dates Details Brother 1 Comments:ME/CAD Status:Active Brother 2 Comments:Kidney failure, [place] Status:Active Family Members In General Comments:alcoholism, drug de pendency/abuse, Anxiety/Depression, Stroke, Suicide/Traumatic Status:Active Father Comments:ME, brain aneurysm Status:Active Mother Comments:Hypertension, Thyro id Disease Status:Active Sister 1 Comments:half sister: [place]/CVA Status:Active Unknown Family Member Name Dates Details Brother 1 Comments:ME/CAD Status:Active Brother 2 Comments:Kidney failure, [place] Status:Active Family Members In General Comments:alcoholism, drug de pendency/abuse, Anxiety/Depression, Stroke, Suicide/Traumatic Status:Active Father Comments:ME, brain aneurysm Status:Active Mother Comments:Hypertension, Thyro id Disease Status:Active Sister 1 Comments:half sister: [place]/CVA Status:Active Unknown Family Member Name Dates Details Brother 1 Comments:ME/CAD Status:Active Brother 2 Comments:Kidney failure, [place] Status:Active Family Members In General Comments:alcoholism, drug de pendency/abuse, Anxiety/Depression, Stroke, Suicide/Traumatic Status:Active Father Comments:ME, brain aneurysm Status:Active Mother Comments:Hypertension, Thyro id Disease Status:Active Sister 1 Comments:half sister: [place]/CVA Status:Active Unknown Family Member Name Dates Details Brother 1 Comments:ME/CAD Status:Active Brother 2 Comments:Kidney failure, [place] Status:Active Family Members In General Comments:alcoholism, drug de pendency/abuse, Anxiety/Depression, Stroke, Suicide/Traumatic Status:Active Father Comments:ME, brain aneurysm Status:Active Mother Comments:Hypertension, Thyro id Disease Status:Active Sister 1 Comments:half sister: [place]/CVA Status:Active Unknown Family Member Name Dates Details Brother 1 Comments:ME/CAD Status:Active Brother 2 Comments:Kidney failure, [place] Status:Active Family Members In General Comments:alcoholism, drug de pendency/abuse, Anxiety/Depression, Stroke, Suicide/Traumatic Status:Active Father Comments:ME, brain aneurysm Status:Active Mother Comments:Hypertension, Thyro id Disease Status:Active Sister 1 Comments:half sister: [place]/CVA Status:Active Unknown Family Member Name Dates Details Brother 1 Comments:ME/CAD Status:Active Brother 2 Comments:Kidney failure, [place] Status:Active Family Members In General Comments:alcoholism, drug de pendency/abuse, Anxiety/Depression, Stroke, Suicide/Traumatic Status:Active Father Comments:ME, brain aneurysm Status:Active Mother Comments:Hypertension, Thyro id Disease Status:Active Sister 1 Comments:half sister: [place]/CVA Status:Active Unknown Family Member Name Dates Details Brother 1 Comments:ME/CAD Status:Active Brother 2 Comments:Kidney failure, [place] Status:Active Family Members In General Comments:alcoholism, drug de pendency/abuse, Anxiety/Depression, Stroke, Suicide/Traumatic Status:Active Father Comments:ME, brain aneurysm Status:Active Mother Comments:Hypertension, Thyro id Disease Status:Active Sister 1 Comments:half sister: [place]/CVA Status:Active Unknown Family Member Name Dates Details Brother 1 Comments:ME/CAD Status:Active Brother 2 Comments:Kidney failure, [place] Status:Active Family Members In General Comments:alcoholism, drug de pendency/abuse, Anxiety/Depression, Stroke, Suicide/Traumatic Status:Active Father Comments:ME, brain aneurysm Status:Active Mother Comments:Hypertension, Thyro id Disease Status:Active Sister 1 Comments:half sister: [place]/CVA Status:Active Relationship Condition Age at Onset Recorded Date/T kei Not Specified Cardiac disease Unknown Unknown Family Member Name Dates Details Brother 1 Comments:ME/CAD Status:Active Brother 2 Comments:Kidney failure, [place] Status:Active Family Members In General Comments:alcoholism, drug de pendency/abuse, Anxiety/Depression, Stroke, Suicide/Traumatic Status:Active Father Comments:ME, brain aneurysm Status:Active Mother Comments:Hypertension, Thyro id Disease Status:Active Sister 1 Comments:half sister: [place]/CVA Status:Active Unknown Family Member Name Dates Details Brother 1 Comments:ME/CAD Status:Active Brother 2 Comments:Kidney failure, [place] Status:Active Family Members In General Comments:alcoholism, drug de pendency/abuse, Anxiety/Depression, Stroke, Suicide/Traumatic Status:Active Father Comments:ME, brain aneurysm Status:Active Mother Comments:Hypertension, Thyro id Disease Status:Active Sister 1 Comments:half sister: [place]/CVA Status:Active Unknown Family Member Name Dates Details Brother 1 Comments:ME/CAD Status:Active Brother 2 Comments:Kidney failure, [place] Status:Active Family Members In General Comments:alcoholism, drug de pendency/abuse, Anxiety/Depression, Stroke, Suicide/Traumatic Status:Active Father Comments:ME, brain aneurysm Status:Active Mother Comments:Hypertension, Thyro id Disease Status:Active Sister 1 Comments:half sister: [place]/CVA Status:Active Unknown Family Member Name Dates Details Brother 1 Comments:ME/CAD Status:Active Brother 2 Comments:Kidney failure, [place] Status:Active Family Members In General Comments:alcoholism, drug de pendency/abuse, Anxiety/Depression, Stroke, Suicide/Traumatic Status:Active Father Comments:ME, brain aneurysm Status:Active Mother Comments:Hypertension, Thyro id Disease Status:Active Sister 1 Comments:half sister: [place]/CVA Status:Active Unknown Family Member Name Dates Details Brother 1 Comments:ME/CAD Status:Active Brother 2 Comments:Kidney failure, [place] Status:Active Family Members In General Comments:alcoholism, drug de pendency/abuse, Anxiety/Depression, Stroke, Suicide/Traumatic Status:Active Father Comments:ME, brain aneurysm Status:Active Mother Comments:Hypertension, Thyro id Disease Status:Active Sister 1 Comments:half sister: [place]/CVA Status:Active Unknown Family Member Name Dates Details Brother 1 Comments:ME/CAD Status:Active Brother 2 Comments:Kidney failure, [place] Status:Active Family Members In General Comments:alcoholism, drug de pendency/abuse, Anxiety/Depression, Stroke, Suicide/Traumatic Status:Active Father Comments:ME, brain aneurysm Status:Active Mother Comments:Hypertension, Thyro id Disease Status:Active Sister 1 Comments:half sister: ME/CVA Status:Active Unknown Family Member Name Dates Details Brother 1 Comments:ME/CAD Status:Active Brother 2 Comments:Kidney failure, [place] Status:Active Family Members In General Comments:alcoholism, drug de pendency/abuse, Anxiety/Depression, Stroke, Suicide/Traumatic Status:Active Father Comments:ME, brain aneurysm Status:Active Mother Comments:Hypertension, Thyro id Disease Status:Active Sister 1 Comments:half sister: [place]/CVA Status:Active Unknown Family Member Name Dates Details Brother 1 Comments:ME/CAD Status:Active Brother 2 Comments:Kidney failure, [place] Status:Active Family Members In General Comments:alcoholism, drug de pendency/abuse, Anxiety/Depression, Stroke, Suicide/Traumatic Status:Active Father Comments:ME, brain aneurysm Status:Active Mother Comments:Hypertension, Thyro id Disease Status:Active Sister 1 Comments:half sister: [place]/CVA Status:Active Unknown Family Member Name Dates Details Brother 1 Comments:ME/CAD Status:Active Brother 2 Comments:Kidney failure, [place] Status:Active Family Members In General Comments:alcoholism, drug de pendency/abuse, Anxiety/Depression, Stroke, Suicide/Traumatic Status:Active Father Comments:ME, brain aneurysm Status:Active Mother Comments:Hypertension, Thyro id Disease Status:Active Sister 1 Comments:half sister: [place]/CVA Status:Active Unknown Family Member Name Dates Details Brother 1 Comments:ME/CAD Status:Active Brother 2 Comments:Kidney failure, [place] Status:Active Family Members In General Comments:alcoholism, drug de pendency/abuse, Anxiety/Depression, Stroke, Suicide/Traumatic Status:Active Father Comments:ME, brain aneurysm Status:Active Mother Comments:Hypertension, Thyro id Disease Status:Active Sister 1 Comments:half sister: [place]/CVA Status:Active Unknown Family Member Name Dates Details Brother 1 Comments:ME/CAD Status:Active Brother 2 Comments:Kidney failure, [place] Status:Active Family Members In General Comments:alcoholism, drug de pendency/abuse, Anxiety/Depression, Stroke, Suicide/Traumatic Status:Active Father Comments:ME, brain aneurysm Status:Active Mother Comments:Hypertension, Thyro id Disease Status:Active Sister 1 Comments:half sister: [place]/CVA Status:Active Unknown Family Member Name Dates Details Brother 1 Comments:ME/CAD Status:Active Brother 2 Comments:Kidney failure, [place] Status:Active Family Members In General Comments:alcoholism, drug de pendency/abuse, Anxiety/Depression, Stroke, Suicide/Traumatic Status:Active Father Comments:ME, brain aneurysm Status:Active Mother Comments:Hypertension, Thyro id Disease Status:Active Sister 1 Comments:half sister: [place]/CVA Status:Active Unknown Family Member Name Dates Details Brother 1 Comments:ME/CAD Status:Active Brother 2 Comments:Kidney failure, [place] Status:Active Family Members In General Comments:alcoholism, drug de pendency/abuse, Anxiety/Depression, Stroke, Suicide/Traumatic Status:Active Father Comments:ME, brain aneurysm Status:Active Mother Comments:Hypertension, Thyro id Disease Status:Active Sister 1 Comments:half sister: [place]/CVA Status:Active Unknown Family Member Name Dates Details Brother 1 Comments:ME/CAD Status:Active Brother 2 Comments:Kidney failure, [place] Status:Active Family Members In General Comments:alcoholism, drug de pendency/abuse, Anxiety/Depression, Stroke, Suicide/Traumatic Status:Active Father Comments:ME, brain aneurysm Status:Active Mother Comments:Hypertension, Thyro id Disease Status:Active Sister 1 Comments:half sister: ME/CVA Status:Active Unknown Family Member Name Dates Details Brother 1 Comments:ME/CAD Status:Active Brother 2 Comments:Kidney failure, [place] Status:Active Family Members In General Comments:alcoholism, drug de pendency/abuse, Anxiety/Depression, Stroke, Suicide/Traumatic Status:Active Father Comments:ME, brain aneurysm Status:Active Mother Comments:Hypertension, Thyro id Disease Status:Active Sister 1 Comments:half sister: [place]/CVA Status:Active Unknown Family Member Name Dates Details Brother 1 Comments:ME/CAD Status:Active Brother 2 Comments:Kidney failure, [place] Status:Active Family Members In General Comments:alcoholism, drug de pendency/abuse, Anxiety/Depression, Stroke, Suicide/Traumatic Status:Active Father Comments:ME, brain aneurysm Status:Active Mother Comments:Hypertension, Thyro id Disease Status:Active Sister 1 Comments:half sister: ME/CVA Status:Active Unknown Family Member Name Dates Details Brother 1 Comments:ME/CAD Status:Active Brother 2 Comments:Kidney failure, [place] Status:Active Family Members In General Comments:alcoholism, drug de pendency/abuse, Anxiety/Depression, Stroke, Suicide/Traumatic Status:Active Father Comments:ME, brain aneurysm Status:Active Mother Comments:Hypertension, Thyro id Disease Status:Active Sister 1 Comments:half sister: [place]/CVA Status:Active Relationship Condition Age at Onset Recorded [...] Informa tion Online using Patient Portal and [employer] Indication:Nonsmoker Start:13-Mar-2020 Instruction Type:Patient Education How [...] STROKE April 02, 2024 10:07am Dizziness/Giddiness/Lightheaded (Self) M [facility] 2024 3:24pm Reason for Visit Admit Date Left shoulder pain March 04, 2024 2 :43pm Primary osteoarthritis, left shoulder [place] 2024 2:43pm Left shoulder pain March 14, 2024 3 :11pm Primary osteoarthritis, left shoulder [place] 2024 3:11pm NOAH (acute kidney injury) April [...] STROKE April 02, 2024 10:07am Dizziness/Giddiness/Lightheaded (Self) [facility] [facility] 3:24pm Reason for Visit Admit Date Left shoulder pain March 14, 2024 3 :11pm Primary osteoarthritis, left shoulder [facility] 2024 3:11pm NOAH (acute kidney injury) April 01, 2024 3:23pm Vertigo April 01, 2024 3:23pm Occipital stroke April 01, 2024 3:23pm Dyslipidemia April 26, 2024 3:24 pm Hypertension April 26, 2024 3:24 pm Syncope April 26, 2024 3:24 pm Chief Complaint Admit Date 6 M FU October 29, 2024 3:00pm Reason for Visit Admit Date Dyslipidemia October 29, 2024 3:00pm Hypertension October 29, 2024 3:00pm Syncope October 29, 2024 3:00pm Advance Directives No Advanced Directives Records Found Advance Directive Response Recorded Date/ Time Advance Directives No October 1:51pm Living Will Yes November 04, 2018 9:31am Power of Quoter Yes October 9:31am Advance Directive Response Recorded Date/ Time Advance Directives No October 1:51pm Living Will Yes July 22, 2021 8 :48am Power of Quoter Yes July 22, 2021 8:48am Advance Directive Response Recorded Date/ Time Advance Directives No October 1:51pm Living Will No October 25 023 10:06am Power of Quoter No October 25, 2022 10:06am Advance Directive Response Recorded Date/ Time Advance Directives No October 12:51pm Living Will No October 25 023 9:06am Power of Quoter No October 25, 2022 9:06am Advance Directive Response Recorded Date/ Time Advance Directives No October 1:51pm Living Will Yes May 31, 2023 11:23am Power of Quoter Yes May 30 11:23am Advance Directive Response Recorded Date/ Time Advance Directives No October 1:51pm Living Will Yes June 14, 2023 4:06pm Power of Quoter Yes June 13 4:06pm Name of Medical Power of Quoter JEF LIGHT June 14, 2023 4:06pm Advance Directive Response Recorded Date/ Time Living Will Yes April 01 025 8:27pm Do you have a Healthcare Power of Quoter? Yes April 01, 2024 8:27pm Name of Medical Power of Quoter Benny Light April 01, 2024 8:27pm Advance Directives No October 1:51pm Advance Directive Response Recorded Date/ Time Advance Directives No October 1:51pm Summary Purpose [...] content) DATE CREATED AUTHOR 07/03/2022 [facility] ternal [facility] DATE CREATED AUTHOR AUTHOR'S ORGANIZ ATION 11/03/2024 [facility] Care Teams (unrecognized sec tion and content) Team Status: Active Member Role Status Dates Leatha Morrison MANAGER FURNITURE, MANAGER FURNITURE-C Family Provider Active Mayra Escobedo , MANAGER FURNITURE-C Primary Care Provider Active Team Status: Inactive Member Role Status Dates Mayra Escobedo MANAGER FURNITURE-C Primary Care Provi parker, Attending Provider, Referring Provider Active Team Status: Inactive Member Role Status Dates Mayra Escobedo MANAGER FURNITURE-C Primary Care Provider Active Dr. Eduin Caro MD Attending Provider, Referring P rovider Active Team Status: Inactive Member Role Status Dates Mayra Escobedo MANAGER FURNITURE-C Primary Care Provider Active Dr. Kit Still MD Emergency Provider Active Team Status: Inactive Member Role Status Dates Mayra Escobedo MANAGER FURNITURE-C Primary Care Provider Active Dr. Kit Still MD Attending Provider, Emergency Provi parker Active Team Status: Active Member Role Status Dates Mayra Escobedo MANAGER FURNITURE-C Primary Care Provider Active Health Risk Assessment Attending Provider, Referring P rovider Active Team Status: Active Member Role Status Dates Mayra Escobedo MANAGER FURNITURE-C Primary Care Provi parker, Attending Provider, Referring Provider Active Team Status: Inactive Member Role Status Dates Mayra Escobedo MANAGER FURNITURE-C Primary Care Provider Active Dr. Brennon Ramirez MD Admit Provider, A ttending Provider, Referring Provider Active Team Status: Active Member Role Status Dates Mayra Escobedo MANAGER FURNITURE-C Primary Care Provider Active Team Status: Inactive Member Role Status Dates Mayra Escobedo MANAGER FURNITURE-C Primary Care Provider Active Start: March 04, 2024 End: March 04, 2024 Mayra Escobedo NP-C Referring Provider Active Start: March 04, 2024 End: March 04, 2024 Chapo Yates MD Attending Provider Active St art: March 04, 2024 End: March 04, 2024 Team Status: Inactive Member Role Status Dates Mayra Escobedo MANAGER FURNITURE-C Primary Care Provider Active Start: March 11, [...] Bragg MD Other Provider Active Start: [email or web address] Dr. Ce Hanson MD Other Provider Active [...] June 11, 2024 End: June 11, 2024 Mayra Gregg , MANAGER FURNITURE-C Referring Provider Active Start: June 11, 2024 End: June 11, 2024 Team Status: Inactive Member Role Status Dates Mayra Escobedo MANAGER FURNITURE-C Primary Care Provider Active Start: July 02, 2024 End: July 02, 2024 Mayra Escobedo MANAGER FURNITURE-C Attending Provider Active Start: July 02, 2024 End: July 02, 2024 Mayra Escobedo MANAGER FURNITURE-C Referring Provider Active Start: July 02, 2024 End: July 02, 2024 Team Status: Active Member Role/Relationship Status Dates Mayra Escobedo MANAGER FURNITURE-C Primary Care Provider Active Team Status: Inactive Member Role/Relationship Status Dates Mayra Escobedo MANAGER FURNITURE-C Primary Care Provider Active Start: June 11, 2024 End: June 11, 2024 Mayra Escobedo MANAGER FURNITURE-C Attending Provider Active Start: June 11, 2024 End: June 11, 2024 Mayra Escobedo MANAGER FURNITURE-C Referring Provider Active Start: June 11, 2024 End: June 11, 2024 Team Status: Inactive Member Role/Relationship Status Dates Mayra Escobedo MANAGER FURNITURE-C Primary Care Provider Active Start: July 02, 2024 End: July 02, 2024 Mayra Escobedo MANAGER FURNITURE-C Attending Provider Active Start: July 02, 2024 End: July 02, 2024 Mayra Escobedo MANAGER FURNITURE-C Referring Provider Active Start: July 02, 2024 End: July 02, 2024 Team Status: Inactive Member Role/Relationship Status Dates Mayra Escobedo MANAGER FURNITURE-C Primary Care Provider Active Start: August 20, 2024 End: August 20, 2024 Mayra Escobedo MANAGER FURNITURE-C Attending Provider Active Start: August 20, 2024 End: August 20, 2024 Mayra Escobedo MANAGER FURNITURE-C Referring Provider Active Start: August 20, 2024 End: August 20, 2024 Team Status: Inactive Member Role/Relationship Status Dates Mayra Escobedo MANAGER FURNITURE-C Primary Care Provider Active Start: July 02, 2024 End: July 02, 2024 Mayra Escobedo MANAGER FURNITURE-C Attending Provider Active Start: July 02, 2024 End: July 02, 2024 Mayra Escobedo MANAGER FURNITURE-C Referring Provider Active Start: July 02, 2024 End: July 02, 2024 Team Status: Inactive Member Role/Relationship Status Dates REBECCA Wallace Primary Care Provider Active Start: August 20, 2024 End: August 20, 2024 REBECCA Wallace Attending Provider Active Start: August 20, 2024 End: August 20, 2024 REBECCA Wallace Referring Provider Active Start: August 20, 2024 End: August 20, 2024 Team Status: Inactive Member Role/Relationship Status Dates REBECCA Wallace Primary Care Provider Active Start: October 29, 2024 End: October 29, 2024 REBECCA Wallace Referring Provider Active Start: October 29, 2024 End: October 29, 2024 Delaney OLSEN, PA Attending Provider Active Start: October 29, 2024 End: October 29, 2024 FOR RECORDS PERTAINING TO PATIENTS WHO [...] BE BASED ON THE PRIMARY CLINICAL RECORDS. [employer] provides no warranty or guarantee of the accuracy or completeness of information in this document.
== END | disposition home or self-care (01) ==
LOC: LAB 05:59
PROVIDERS: PCP Nurse Practitioner Family; Referring Provider Nurse Practitioner Family; Visit Provider Nurse Practitioner Family
DX: E03.9 Hypothyroidism, unspecified (principal)
CPT/HCPCS: 36415; 84443

== ENCOUNTER → 2024-11-26 | Outpatient (CLI) | payer OTHER, SELFPAY ==
[2024-11-26 15:57] LABS: Potassium 5.2 mmol/L (3.3-5.1)
== END | disposition home or self-care (01) ==
LOC: LAB 14:31
PROVIDERS: PCP Nurse Practitioner Family; Referring Provider Nurse Practitioner Family; Visit Provider Nurse Practitioner Family
DX: E87.5 Hyperkalemia (principal)
CPT/HCPCS: 36415; 84132

== ENCOUNTER → 2024-12-30 | Outpatient (CLI) | payer OTHER, SELFPAY ==
--- NOTE | 2024-12-30 15:00 | BI_ITS ---
EXAM: SCRN MAMM (CAD)W/KAVITHA BILAT DATE: 12/30/2024 CLINICAL HISTORY: F, Age 74 y/o , SCREENING TECHNIQUE: Procedure Code: [id number] Modality: MG Procedure: SCRN MAMM (CAD)W/KAVITHA BILAT COMPARISON: Prior exam(s) dated 12/27/2022. FINDINGS: TISSUE DENSITY: There are scattered areas of fibroglandular density. Bilateral Breast Mammographic Findings: No significant masses, calcifications or other abnormalities are identified. Benign vascular calcifications, secretory type calcifications, and round calcifications are seen in both breasts. Stable partially obscured isodense masses are seen in the right breast. BI/SCRN MAMM (CAD)W/KAVITHA BILAT IMPRESSION: Benign screening mammogram. OVERALL FINAL ASSESSMENT BI-RADS 2: BENIGN RECOMMENDATION: Routine annual follow-up in 1 Year Additional Recommendation none A letter with findings and recommendations will be mailed to the patient. Reading Location: [id number]
== END | disposition home or self-care (01) ==
PROVIDERS: PCP Nurse Practitioner Family; Referring Provider Nurse Practitioner Family; Visit Provider Nurse Practitioner Family
DX: Z12.31 Encounter for screening mammogram for malignant neoplasm of breast (principal)
CPT/HCPCS: 77063; 77067

== ENCOUNTER → 2025-01-23 | Outpatient (CLI) | payer OTHER, SELFPAY ==
--- NOTE | 2025-01-23 08:01 | MRI_ITS ---
PROCEDURE: BRAIN W/WO CONTRAST N/A REASON FOR EXAM: MS CHANGES TECHNIQUE: Procedure Code: [id number] Modality: MR Procedure: BRAIN W/WO CONTRAST Multiplanar and multisequence images were obtained. CONTRAST: CLARISCAN VOLUME: 15 mL COMPARISON: MRI DATED 04/01/2024. FINDINGS: A COUPLE OF FOCI OF HIGH DWI SIGNAL ARE NOTED WITHIN THE BILATERAL CENTRUM SEMIOVALE, WITHOUT CORRESPONDING LOW SIGNAL ON THE ADC MAP. THE ADC SIGNAL IS INTERMEDIATE TO HIGH, WHICH COULD REPRESENT MILD T2 SHINE THROUGH. ALTERNATIVELY, THIS COULD REPRESENT A SUBACUTE ISCHEMIC INFARCTION. MODERATE CONFLUENCE AND FOCAL FLAIR HYPERINTENSITIES ARE NOTED THROUGHOUT THE BILATERAL CEREBRAL WHITE MATTER, NONSPECIFIC AND UNCHANGED FROM THE PREVIOUS STUDY. NO CORRESPONDING ENHANCEMENT. THE MIDLINE STRUCTURES ARE INTACT. NO MIDLINE SHIFT. NO HYDROCEPHALUS. THE ORBITS AND THEIR CONTENTS APPEAR UNREMARKABLE. THE PARANASAL SINUSES AND MASTOID AIR CELLS ARE CLEAR. NO ABNORMAL ENHANCEMENT PATTERN. MRI/Brain W/WO Contrast IMPRESSION: A COUPLE OF FOCI OF HIGH DWI SIGNAL ARE NOTED WITHIN THE BILATERAL CENTRUM SEMI OVALE, WITHOUT CORRESPONDING LOW SIGNAL ON THE ADC MAP. THE ADC SIGNAL IS INTERMEDIATE TO HIGH, WHICH COULD REPRESENT MILD T2 GAYATRI NE THROUGH. ALTERNATIVELY, THIS COULD REPRESENT A SUBACUTE ISCHEMIC INFARCTION. MODERATE NONSPECIFIC FLAIR HYPERINTENSITIES THROUGHOUT THE BILATERAL CEREBRAL W LYLE MATTER, UNCHANGED FROM THE PREVIOUS STUDY AND PROBABLY REPRESENT CHRONIC MICROVASCULAR ISCHEMIC CHANGES. GIVEN THE PATIENT'S HISTORY, THIS MAY ALSO REPRESENT DEMYELINATING PLAQUE SUCH SEEN WITH MULTIPLE SCLEROSIS. THERE IS NO CORRESPONDING ENHANCE MENT TO SUGGEST ACTIVE INFLAMMATION/DEMYELINATION. Reading Location: [id number]
== END | disposition home or self-care (01) ==
LOC: OPMRI 07:59
PROVIDERS: PCP Nurse Practitioner Family; Referring Provider Nurse Practitioner Family; Visit Provider Nurse Practitioner Family
DX: R41.82 Altered mental status, unspecified (principal)
CPT/HCPCS: 70553; A9575